=== PATIENT | female | born 1960 | race Caucasian/White ===

== ENCOUNTER 2018-01-18 12:07 | Emergency (ER) | payer OTHER ==
[2018-01-18 13:58] LABS: Urine Blood 2+ (NEG); Urine Glucose NEGATIVE (NEG); Urine Protein NEGATIVE (NEG); Urine Specific Gravity 1.015 (1.005-1.030)
[2018-01-18 14:00] LABS: Urine Bacteria >50 /HPF (<20); Urine Culture Reflex Order NOT NEEDED; Urine RBC <5 /HPF (NONE SEEN)
--- NOTE | 2018-01-18 14:08 | EDPHYS ---
Physician Documentation [facility] Name: Kaitlyn Sesay Age: 57 yrs Sex: Female : 1960 Arrival Date: 01/18/2018 Time: 12:09 Bed 23 Private MD: Tavares Dillon R ED Physician Riley Kaufman HPI: 01/18 14:12 This 57 yrs old Female presents to ER via Ambulatory with complaints of snw Abdominal Pain, Low Back Pain, High Blood Pressure. 14:12 The patient presents with abdominal pain in the lower abdomen. Onset: The snw symptoms/episode began/occurred suddenly, and became persistent. The symptoms. Associated signs and symptoms: none. The symptoms are described as crampy. Severity of pain: At its worst the pain was moderate. The patient has experienced similar episodes in the past, chronically, but today's symptoms are worse. appt today at 2:40. Historical: - Allergies: 12:33 Rocephin; sg 12:33 Cephalexin; sg 12:33 Sulfa (Sulfonamide Antibiotics); sg 12:33 Azithromycin; sg 12:33 Rofecoxib; sg - Home Meds: 12:33 levothyroxine 150 mcg tab 1 tab once daily [Active]; metoprolol tartrate 100 mg Oral sg tab 1 tab once daily [Active]; losartan 50 mg oral tab 1 tab once daily [Active]; gabapentin 600 mg oral tab 1 tab 3 times per day [Active]; sufentanil citrate intravenous intravenous for pain pump [Active]; bupivicaine [Active]; Aspirin Oral 1 cap [Active]; Benadryl 25 mg Oral cap 1 cap 3 times per day [Active]; [place] Oral 1 tab every 6 hours for Pain [Active]; - Immunization history:: Adult Immunizations. - Social history:: Smoking status: Patient/guardian denies using tobacco. - Ebola Screening: : Patient negative for fever greater than or equal to 101.5 degrees Fahrenheit, and additional compatible Ebola Virus Disease symptoms Patient denies exposure to infectious person Patient denies travel to an Ebola-affected area in the 21 days before illness onset No symptoms or risks identified at this time. ROS: 14:10 Constitutional: Negative for fever, chills, and weight loss, Eyes: Negative for injury, snw pain, redness, and discharge, ENT: Negative for injury, pain, and discharge, Neck: Negative for injury, pain, and swelling, Cardiovascular: Negative for chest pain, palpitations, and edema, Respiratory: Negative for shortness of breath, cough, wheezing, and pleuritic chest pain, : Negative for injury, bleeding, discharge, and swelling, MS/Extremity: Negative for injury and deformity, Skin: Negative for injury, rash, and discoloration, Neuro: Negative for headache, weakness, numbness, tingling, and seizure, Psych: Negative for depression, anxiety, suicide ideation, homicidal ideation, and hallucinations. 14:10 Abdomen/GI: Positive for abdominal pain, abdominal cramps. 14:10 Back: Positive for decreased range of motion, pain at rest, pain with movement, of the lumbar area, left low back and right low back. Exam: 14:10 Constitutional: This is a well developed, well nourished patient who is awake, alert, snw and in no acute distress. Head/Face: Normocephalic, atraumatic. Eyes: Pupils equal round and reactive to light, extra-ocular motions intact. Lids and lashes normal. Conjunctiva and sclera are non-icteric and not injected. Cornea within normal limits. Periorbital areas with no swelling, redness, or edema. ENT: Nares patent. No nasal discharge, no septal abnormalities noted. Tympanic membranes are normal and external auditory canals are clear. Oropharynx with no redness, swelling, or masses, exudates, or evidence of obstruction, uvula midline. Mucous membranes moist. Neck: Trachea midline, no thyromegaly or masses palpated, and no cervical lymphadenopathy. Supple, full range of motion without nuchal rigidity, or vertebral point tenderness. No Meningismus. Chest/axilla: Normal chest wall appearance and motion. Nontender with no deformity. No lesions are appreciated. Cardiovascular: Regular rate and rhythm with a normal S1 and S2. No gallops, murmurs, or rubs. Normal PMI, no JVD. No pulse deficits. Respiratory: Lungs have equal breath sounds bilaterally, clear to auscultation and percussion. No rales, rhonchi or wheezes noted. No increased work of breathing, no retractions or nasal flaring. Skin: Warm, dry with normal turgor. Normal color with no rashes, no lesions, and no evidence of cellulitis. MS/ Extremity: Pulses equal, no cyanosis. Neurovascular intact. Full, normal range of motion. Neuro: Awake and alert, GCS 15, oriented to person, place, time, and situation. Cranial nerves II-XII grossly intact. Motor strength 5/5 in all extremities. Sensory grossly intact. Cerebellar exam normal. Normal gait. Psych: Awake, alert, with orientation to person, place and time. Behavior, mood, and affect are within normal limits. 14:10 Back: No spinal tenderness. No costovertebral tenderness. Full range of motion. 14:10 Abdomen/GI: Inspection: abdomen appears normal, Bowel sounds: normal, Palpation: soft, in all quadrants, mild abdominal tenderness. Vital Signs: 12:28 BP 174 / 79; Pulse 66; Resp 17; Temp 98.8(TE); Pulse Ox 99% on R/A; Weight 72.57 kg sg (R); Pain 10/10; 14:23 BP 131 / 76; Pulse 62; Resp 18; Pulse Ox 98% on R/A; tl3 MDM: 12:58 Patient medically screened. snw 14:12 Data reviewed: vital signs, nurses notes. Data interpreted: Pulse oximetry: on room air snw is 99 %. Interpretation: normal. Counseling: I had a detailed discussion with the patient and/or guardian regarding: the historical points, exam findings, and any diagnostic results supporting the discharge/admit diagnosis, the presence of at least one elevated blood pressure reading (>120/80) during this emergency department visit, lab results, the need for outpatient follow up, to return to the emergency department if symptoms worsen or persist or if there are any questions or concerns that arise at home. Special discussion: Based on the patient's Hx, exam, and Dx evaluation, there is no indication for emergent surgery or inpatient Tx. It is understood by the patient/guardian that if the Sx's persist or worsen they need to return immediately for re-evaluation. I have referred the patient to see his PCP for further evaluation of high blood pressure. Based on the history and exam findings, there is no indication for further emergent testing or inpatient evaluation. I discussed with the patient/guardian the need to see the primary care provider for further evaluation of the symptoms. 01/18 12:59 Order name: Urine Microscopic Only; Complete Time: 14:05 snw 01/18 12:59 Order name: Urine Culture snw 01/18 13:49 Order name: Urine Dipstick--Ancillary (enter results); Complete Time: 13:59 mb4 01/18 12:59 Order name: Cath; Complete Time: 13:50 snw Administered Medications: 14:16 Drug: LevaQUIN 750 mg Route: PO; tl3 14:17 Follow up: Response: Medication administered at discharge. tl3 14:16 Drug: Macrobid 100 mg Route: PO; tl3 14:16 Follow up: Response: Medication administered at discharge. tl3 14:16 Drug: [place] 5 mg-325 mg 1 tabs Route: PO; tl3 14:16 Follow up: Response: Medication administered at discharge. tl3 Disposition: 01/18/18 14:07 Discharged to Home. Impression: Urinary tract infection, site not specified. - Condition is Stable. - Discharge Instructions: Urinary Tract Infection, Adult. - Prescriptions for Levaquin 500 mg Oral Tablet - take 1 tablet by ORAL route once daily for 10 days; 10 tablet. Macrobid 100 mg Oral Capsule - take 1 capsule by ORAL route every 12 hours for 10 days; 20 capsule. - Medication Reconciliation Form, Thank You Letter, Antibiotic Education, Prescription Opioid Use form. - Follow up: Tavares Dillon MD; When: Today; Reason: Recheck today's complaints, Continuance of care, Re-evaluation by your physician. Follow up: Emergency Department; When: As needed; Reason: Worsening of condition. Addendum: 01/20/2018 08:06 Co-signature as Attending Physician, Riley Kaufman MD I agree with the assessment and w a plan of care. Signatures: Dispatcher [employer] EDMS Quinn Hahn RN RN sg Beverley Leal, FARM HAND-C FARM HAND-Csnw Riley Kaufman MD MD wa Lowrey, Tammy RN RN tl3 Corrections: (The following items were deleted from the chart) 01/18 14:27 14:07 01/18/2018 14:07 Discharged to Home. Impression: Urinary tract infection, site tl3 not specified. Condition is Stable. Forms are Medication Reconciliation Form, Thank You Letter, Antibiotic Education, Prescription Opioid Use. Follow up: Tavares Dillon; When: Today; Reason: Recheck today's complaints, Continuance of care, Re-evaluation by your physician. Follow up: Emergency Department; When: As needed; Reason: Worsening of condition. snw
--- NOTE | 2018-01-18 14:08 | ER ---
Nurse's Notes [facility] Name: Kaitlyn Sesay Age: 57 yrs Sex: Female : 1960 Arrival Date: 01/18/2018 Time: 12:09 Bed 23 Private MD: Tavares Dillon R Diagnosis: Urinary tract infection, site not specified Presentation: 01/18 12:27 Presenting complaint: Patient states: and I have been fighting a urinary tract sg infection for a few months now, am not currently taking any abx, reports abd pain, low back pain and having high blood pressure due to the pain, reports dark urine, pain with urination that is intermittent. Transition of care: patient was not received from another setting of care. Onset of symptoms. Risk Assessment: Do you want to hurt yourself or someone else? Patient reports no desire to harm self or others. Initial Sepsis Screen: Does the patient meet any 2 criteria? No. Patient's initial sepsis screen is negative. Does the patient have a suspected source of infection? Yes: Dysuria/Frequency/Urgency/UTI. Care prior to arrival: None. 12:27 Method Of Arrival: Ambulatory sg 12:27 Acuity: VIKRAM 3 sg Historical: - Allergies: 12:33 Rocephin; sg 12:33 Cephalexin; sg 12:33 Sulfa (Sulfonamide Antibiotics); sg 12:33 Azithromycin; sg 12:33 Rofecoxib; sg - Home Meds: 12:33 levothyroxine 150 mcg tab 1 tab once daily [Active]; metoprolol tartrate 100 mg Oral sg tab 1 tab once daily [Active]; losartan 50 mg oral tab 1 tab once daily [Active]; gabapentin 600 mg oral tab 1 tab 3 times per day [Active]; sufentanil citrate intravenous intravenous for pain pump [Active]; bupivicaine [Active]; Aspirin Oral 1 cap [Active]; Benadryl 25 mg Oral cap 1 cap 3 times per day [Active]; [place] Oral 1 tab every 6 hours for Pain [Active]; - Immunization history:: Adult Immunizations. - Social history:: Smoking status: Patient/guardian denies using tobacco. - Ebola Screening: : Patient negative for fever greater than or equal to 101.5 degrees Fahrenheit, and additional compatible Ebola Virus Disease symptoms Patient denies exposure to infectious person Patient denies travel to an Ebola-affected area in the 21 days before illness onset No symptoms or risks identified at this time. Screenin:00 Abuse screen: Denies threats or abuse. Nutritional screening: No deficits noted. tl3 Tuberculosis screening: No symptoms or risk factors identified. Fall Risk None identified. Assessment: 13:00 General: Appears uncomfortable, well groomed, well developed, well nourished, Behavior tl3 is calm, cooperative, appropriate for age. Pain: Complains of pain in lower abdomen, hips and lower back Pain currently is 7 out of 10 on a pain scale. Neuro: Level of Consciousness is awake, alert, obeys commands, Oriented to person, place, time, situation, Appropriate for age. Cardiovascular: Patient's skin is warm and dry. Respiratory: Airway is patent Respiratory effort is even, unlabored, Respiratory pattern is regular, symmetrical. GI: No signs and/or symptoms were reported involving the gastrointestinal system. GI: Bowel sounds present X 4 quads. Abdomen is tender to palpation in right lower quadrant and left lower quadrant. EENT: No signs and/or symptoms were reported regarding the EENT system. Derm: No signs and/or symptoms reported regarding the dermatologic system. Musculoskeletal: No signs and/or symptoms reported regarding the musculoskeletal system. 13:00 : Reports burning with urination, urgency. tl3 14:23 Reassessment: No changes from previously documented assessment. Patient and/or family tl3 updated on plan of care and expected duration. Pain level reassessed. Patient is alert, oriented x 3, equal unlabored respirations, skin warm/dry/pink. Vital Signs: 12:28 BP 174 / 79; Pulse 66; Resp 17; Temp 98.8(TE); Pulse Ox 99% on R/A; Weight 72.57 kg sg (R); Pain 10/10; 14:23 BP 131 / 76; Pulse 62; Resp 18; Pulse Ox 98% on R/A; tl3 ED Course: 12:09 Patient arrived in ED. rg4 12:09 Tavares Dillon MD is Private Physician. rg4 12:24 Arm band placed on. sg 12:28 Triage completed. sg 12:58 Bever[facility]. snw 12:58 Riley Kaufman MD is Attending Physician. snw 13:00 Patricia Guthrie, RN is Primary Nurse. tl3 13:00 Patient has correct armband on for positive identification. Pulse ox on. NIBP on. Warm tl3 blanket given. Pillow given. 13:00 No provider procedures requiring assistance completed. tl3 13:45 Straight cath inserted, using sterile technique, Patient tolerated well. vd2 13:45 Urine collected: straight cath specimen, scotty colored. vd2 14:06 Tavares Dillon MD is Referral Physician. snw 14:23 Patient did not have IV access during this emergency room visit. tl3 Administered Medications: 14:16 Drug: LevaQUIN 750 mg Route: PO; tl3 14:17 Follow up: Response: Medication administered at discharge. tl3 14:16 Drug: Macrobid 100 mg Route: PO; tl3 14:16 Follow up: Response: Medication administered at discharge. tl3 14:16 Drug: [place] 5 mg-325 mg 1 tabs Route: PO; tl3 14:16 Follow up: Response: Medication administered at discharge. tl3 Outcome: 14:07 Discharge ordered by . snw 14:23 Discharged to home ambulatory. tl3 14:23 Condition: stable 14:23 Discharge instructions given to patient, family, Instructed on discharge instructions, follow up and referral plans. medication usage, Demonstrated understanding of instructions, follow-up care, medications, Prescriptions given X 2. 14:27 Patient left the ED. tl3 Addendum: 01/21/2018 08:23 Addendum: Culture Results: Positive urine culture. No further action required. Bacteria h b sensitive to prescribed antibiotic. Signatures: Quinn Hahn RN RN sg Therrien, Shelly, HOME CARE PHYSICAL THERAPIST-C HOME CARE PHYSICAL THERAPIST-Csnw [place], [place] vd2 Debbie Harrison RN RN hb Garcia, Rubi rg4 Patricia Guthrie, SRI RN tl3 Corrections: (The following items were deleted from the chart) 01/18 13:20 13:00 : No signs and/or symptoms were reported regarding the genitourinary system. tl3tl3 13:20 13:00 : Urine is clear, Reports burning with urination, urine has foul odor tl3 tl3
[2018-01-18] MEDS ORDERED: levoFLOXacin 750 MG TAB ONE (14:17)
[2018-01-18] MEDS ORDERED: NITROFURAN MACRO 100 MG CAP PO ONE (14:18)
[2018-01-18] MEDS ORDERED: HYDROCODONE/APAP 5/325 MG TAB ONE (14:18)
[2018-01-18 14:31] VITALS: TEMP 98.8
[2018-01-18 14:32] VITALS: BP 131/76; O2SAT 98
== END 2018-01-18 14:27 | disposition home or self-care (01) ==
LOC: ER 12:07
DX: N39.0 Urinary tract infection, site not specified (principal); Z79.82 Long term (current) use of aspirin; Z88.1 Allergy status to other antibiotic agents; Z88.2 Allergy status to sulfonamides; Z88.3 Allergy status to other anti-infective agents
CPT/HCPCS: 51702; 81003; 81015; 87077; 87086; 87088; 87186; 99284

== ENCOUNTER 2018-12-01 18:40 | Emergency (ER) | payer OTHER ==
[2018-12-01 19:40] LABS: Absolute Lymphocytes (CBC) 2.2 K/uL (0.7-4.9); Basophils % 0.8 % (0-1.3); Eosinophils % 1.1 % (0-4.4); Hematocrit 38.9 % (36.0-45.0); Lymphocytes % 23.1 % (15.3-44.8); MPV 9.9 fL (7.6-11.3); Monocytes % 3.9 % (3.3-12.3); RBC Red Blood Cell Count 3.65 M/uL (3.86-4.86)
[2018-12-01 19:42] LABS: Protime INR 1.15
--- NOTE | 2018-12-01 19:48 | RAD REPORT ---
EXAM DESCRIPTION: CT - Head Brain Wo Cont - 12/01/2018 7:38 pm CLINICAL HISTORY: DIZZINESS Headache, drowsiness COMPARISON: HEAD BRAIN W O CONTRAST dated 03/28/2012 TECHNIQUE: All CT scans are performed using dose optimization technique as appropriate and may inclu de automated exposure control or mA/KV adjustment according to patient size. FINDINGS: No intracranial hemorrhage, hydrocephalus or extra-axial fluid collection.No areas of brai n edema or evidence of midline shift. The paranasal sinuses and mastoids are clear. The calvarium is intact. IMPRESSION: No acute intracranial abnormality.
--- NOTE | 2018-12-01 19:50 | RAD REPORT ---
EXAM DESCRIPTION: RAD - Chest Single View - 12/01/2018 7:38 pm CLINICAL HISTORY: dizziness, vomiting blood Chest pain. COMPARISON: CHEST PA AND LAT 2 VIEW dated 06/18/2012; CHEST SINGLE VIEW dated 02/16/2012 FINDINGS: Portable technique limits examination quality. The lungs are grossly clear. The heart is upper limit of normal in size. No displaced fractures. IMPRESSION: No acute intrathoracic process suspected.
[2018-12-01] MEDS ORDERED: ONDANSETRON 4 MG/2 ML VIAL ONE (19:51)
[2018-12-01] MEDS ORDERED: LIDOCAINE VISCOUS 2% SOLN 15 ML UDC ONE (19:52)
[2018-12-01] MEDS ORDERED: NA CHLORIDE 0.9% 1,000 ML ONE (19:52)
[2018-12-01 19:58] LABS: Bilirubin Direct 0.3 mg/dL (0-0.2); Bilirubin Total 1.3 mg/dL (0.2-1.0); Magnesium 2.3 mg/dL (1.8-2.4); Potassium 4.3 mmol/L (3.5-5.1); Protein, Total 6.8 g/dL (6.4-8.2); Troponin (Emerg Dept Use Only) 0.02 ng/mL (0.0-0.045)
[2018-12-01 20:08] LABS: Blood Morphology Comment NOTED (NOT SEEN); Macrocytosis 1+; Platelet Estimate ADEQ; Urine White Blood Cell Casts OK
[2018-12-01] MEDS ORDERED: MECLIZINE HCL 12.5 MG TAB ONE (20:42)
[2018-12-01 21:08] LABS: Urine Appearance CLEAR; Urine Blood NEGATIVE (NEG); Urine Color DK YELLOW; Urine Glucose NEGATIVE (NEG); Urine Microscopic Reflex ORDER UMIC; Urine Protein TRACE (NEG); Urine Specific Gravity 1.025 (1.005-1.030)
[2018-12-01 21:13] LABS: Barbiturates NEGATIVE (NEGATIVE); Benzodiazepines NEGATIVE (NEGATIVE); Cocaine NEGATIVE (NEGATIVE); METHAMPHETAM NEGATIVE (NEGATIVE); Methadone NEGATIVE (NEGATIVE); Opiates POSITIVE (NEGATIVE); Phencyclidine NEGATIVE (NEGATIVE); THC Cannibis NEGATIVE (NEGATIVE); Urine Bilirubin NEGATIVE (NEG)
[2018-12-01 21:14] LABS: Urine Blood TRACE (NEG); Urine Glucose NEGATIVE (NEG); Urine Protein 1+ (NEG); Urine Specific Gravity 1.025 (1.005-1.030)
[2018-12-01 21:17] LABS: Urine Bacteria <20 /HPF (<20); Urine Culture Reflex Order REFLEXED; Urine RBC <5 /HPF (NONE SEEN); Urine Yeast FEW (NONE SEEN)
--- NOTE | 2018-12-01 21:41 | ER ---
Nurse's Notes [facility] Name: Kaitlyn Sesay Age: 58 yrs Sex: Female : 1960 Arrival Date: 12/01/2018 Time: 18:42 Bed 7 Private MD: Tavares Dillon R Diagnosis: Dizziness. Acute labyrinthitis Presentation: 12/01 18:46 Presenting complaint: Patient states: I started feeling bad this morning with a ROY, la1 dizziness, nausea. I vomited red that I think was blood at 1300. Transition of care: patient was not received from another setting of care. Onset of symptoms was December 01, 2018. Risk Assessment: Do you want to hurt yourself or someone else? Patient reports no desire to harm self or others. Initial Sepsis Screen: Does the patient meet any 2 criteria? No. Patient's initial sepsis screen is negative. Does the patient have a suspected source of infection? No. Patient's initial sepsis screen is negative. Care prior to arrival: None. 18:46 Method Of Arrival: Wheelchair la1 18:46 Acuity: VIKRAM 2 la1 Historical: - Allergies: 18:48 Azithromycin; la1 18:48 Cephalexin; la1 18:48 Rocephin; la1 18:48 Rofecoxib; la1 18:48 Sulfa (Sulfonamide Antibiotics); la1 18:48 PENICILLINS; la1 - PMHx: 18:48 Thyroid problem; la1 - PSHx: 18:48 Appendectomy; Cholecystectomy; ; Hysterectomy; la1 - Immunization history:: Adult Immunizations up to date. - Social history:: Smoking status: Patient/guardian denies using tobacco. - Ebola Screening: : No symptoms or risks identified at this time. Screenin:00 Abuse screen: Denies threats or abuse. Denies injuries from another. Nutritional ch screening: No deficits noted. Tuberculosis screening: No symptoms or risk factors identified. Fall Risk None identified. Assessment: 20:08 General: Appears in no apparent distress. comfortable, Behavior is calm, cooperative, ch appropriate for age. Pain: Complains of pain in abdomen Pain currently is 5 out of 10 on a pain scale. Pain began gradually. Neuro: No deficits noted. Cardiovascular: Heart tones S1 S2 present. Respiratory: Airway is patent Respiratory effort is even, unlabored, Breath sounds are clear bilaterally. GI: Abdomen is round non-distended, Bowel sounds present X 4 quads. Abd is soft and non tender X 4 quads. Reports nausea, vomiting, vomiting blood and feeling weak when she walks. : No signs and/or symptoms were reported regarding the genitourinary system. Derm: Skin is pale. Musculoskeletal: No signs and/or symptoms reported regarding the musculoskeletal system. Capillary refill < 3 seconds, in bilateral fingers. toes. 20:42 Reassessment: Patient appears in no apparent distress at this time. Patient and/or ch family updated on plan of care and expected duration. Pain level reassessed. Patient is alert, oriented x 3, equal unlabored respirations, skin warm/dry/pink. pt oob to restroom. pt attempts to walk, states she is too weak and afraid she will fall. urine obtained. pt returned to room via wheelchair. 21:37 Reassessment: Patient appears in no apparent distress at this time. Patient and/or ch family updated on plan of care and expected duration. Pain level reassessed. Patient is alert, oriented x 3, equal unlabored respirations, skin warm/dry/pink. pt oob, ambulates down the hallway,s tates she feels better. no s/s of distress. pt verb understanding of discharge. Vital Signs: 18:48 BP 74 / 53; Pulse 75; Resp 16; Temp 97.6; Pulse Ox 98% on R/A; Weight 79.38 kg; Height la1 5 ft. 6 in. (167.64 cm); 19:10 BP 111 / 80; Pulse 76; ch 19:45 BP 125 / 93; Pulse 70; ch 20:08 BP 135 / 74; Pulse 51; Resp 16; Temp 98.4; Pulse Ox 99% on R/A; Pain 5/10; ch 20:42 Pulse 63; Resp 14; Pulse Ox 100% on R/A; Pain 6/10; ch 18:48 Body Mass Index 28.25 (79.38 kg, 167.64 cm) la1 ED Course: 18:42 Patient arrived in ED. mr 18:43 Taavres Dillon MD is Private Physician. mr 18:47 Triage completed. la1 18:48 Arm band placed on left wrist. la1 19:03 Sal Gay MD is Attending Physician. pkl 19:07 Inserted saline lock: 22 gauge in right antecubital area, using aseptic technique. la1 19:10 Patient has correct armband on for positive identification. Placed in gown. Bed in low ch position. Call light in reach. Side rails up X2. Adult w/ patient. cardiac monitor on. Pulse ox on. NIBP on. 19:10 Warm blanket given. Pillow given. ch 19:15 Inserted saline lock: 20 gauge in left forearm, using aseptic technique. Blood ch collected. 19:35 Solange Alcazar, RN is Primary Nurse. ch 19:38 CT completed. Patient tolerated procedure well. Patient moved back from CT. mw3 19:39 XRAY Chest (1 view) In Process Unspecified. EDMS 19:39 CT Head Brain wo Cont In Process Unspecified. EDMS 19:45 NGT: inserted 14 Fr. via right nare. verified placement of air over stomach, verified ch return of gastric contents, to intermittent suction. Returned gastric contents. returns small amount of nicole, no blood seen. no black emesis, no clots viewed. physician at bedside, auscultation checked by physician, no blood viewed. flushed with 50 ml tap water Removed intact. Patient tolerated well. pt educated on risks, benefits, and purpose of procedure. pt verb understanding, discussing witnessed by Sofya. 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 ch 20:15 Repeat lab(s) drawn. by ED staff, sent to lab. ch 20:16 No apparent distress. Resting quietly. ch 21:40 Tavares Dillon MD is Referral Physician. pkl 21:50 IV discontinued, intact, bleeding controlled, No redness/swelling at site. Pressure ch dressing applied. Administered Medications: 19:37 Drug: NS 0.9% 500 ml Route: IV; Rate: bolus; Site: left forearm; ch 20:47 Follow up: IV Status: Completed infusion; IV Intake: 500ml ch 19:37 Drug: NS 0.9% 1000 ml Route: IV; Rate: 100 ml/hr; Site: left forearm; ch 19:37 Drug: Zofran 4 mg Route: IVP; Site: left forearm; ch 20:47 Follow up: Response: No adverse reaction ch 20:42 Drug: Antivert 50 mg Route: PO; ch 20:46 Follow up: Response: No adverse reaction Intake: 20:47 IV: 500ml; Total: 500ml. Outcome: 21:41 Discharge ordered by . pkl 21:50 Discharged to home ambulatory, with family. 21:50 Condition: stable 21:50 Discharge instructions given to patient, family, Instructed on discharge instructions, follow up and referral plans. medication usage, Demonstrated understanding of instructions, follow-up care, medications, Prescriptions given X 2. 22:00 Patient left the ED. Signatures: Dispatcher [employer] EDSolange Hernandes, RN RN Sal Gay MD MD pkl Rivera, Estelita mr Enrico, SRI Persaud RN laClari Bello 3
--- NOTE | 2018-12-01 21:41 | EDPHYS ---
Physician Documentation [facility] Name: Kaitlyn Sesay Age: 58 yrs Sex: Female : 1960 Arrival Date: 12/01/2018 Time: 18:42 Bed 7 Private MD: Tavares Dillon R ED Physician Sal Gay HPI: 12/01 19:46 This 58 yrs old Female presents to ER via Wheelchair with complaints of pkl Vomiting, Blood Pressure Problem. 19:46 The patient presents with dizziness, lightheadedness, sense of spinning. Onset: The pkl symptoms/episode began/occurred this morning. Associated signs and symptoms: Pertinent positives: nausea, vomiting, Patient said she vomited fair amount amount of blood at about 1300.. Historical: - Allergies: 18:48 Azithromycin; la1 18:48 Cephalexin; la1 18:48 Rocephin; la1 18:48 Rofecoxib; la1 18:48 Sulfa (Sulfonamide Antibiotics); la1 18:48 PENICILLINS; la1 - PMHx: 18:48 Thyroid problem; la1 - PSHx: 18:48 Appendectomy; Cholecystectomy; ; Hysterectomy; la1 - Immunization history:: Adult Immunizations up to date. - Social history:: Smoking status: Patient/guardian denies using tobacco. - Ebola Screening: : No symptoms or risks identified at this time. ROS: 19:46 Eyes: Negative for injury, pain, redness, and discharge, ENT: Negative for injury, pkl pain, and discharge, Neck: Negative for injury, pain, and swelling, Cardiovascular: Negative for chest pain, palpitations, and edema, Respiratory: Negative for shortness of breath, cough, wheezing, and pleuritic chest pain. 19:46 Abdomen/GI: Positive for nausea and vomiting. 19:46 Back: Negative for acute changes. 19:46 : Negative for urinary symptoms. 19:46 MS/extremity: Negative for acute changes. 19:46 Skin: Negative for diaphoresis, rash. 19:46 Neuro: Positive for dizziness, Negative for gait disturbance, speech changes. Exam: 19:46 Head/Face: Normocephalic, atraumatic. Eyes: Pupils equal round and reactive to light, pkl extra-ocular motions intact. Lids and lashes normal. Conjunctiva and sclera are non-icteric and not injected. Cornea within normal limits. Periorbital areas with no swelling, redness, or edema. ENT: Nares patent. No nasal discharge, no septal abnormalities noted. Tympanic membranes are normal and external auditory canals are clear. Oropharynx with no redness, swelling, or masses, exudates, or evidence of obstruction, uvula midline. Mucous membranes moist. Neck: Trachea midline, no thyromegaly or masses palpated, and no cervical lymphadenopathy. Supple, full range of motion without nuchal rigidity, or vertebral point tenderness. No Meningismus. Chest/axilla: Normal chest wall appearance and motion. Nontender with no deformity. No lesions are appreciated. Cardiovascular: Regular rate and rhythm with a normal S1 and S2. No gallops, murmurs, or rubs. Normal PMI, no JVD. No pulse deficits. Respiratory: Lungs have equal breath sounds bilaterally, clear to auscultation and percussion. No rales, rhonchi or wheezes noted. No increased work of breathing, no retractions or nasal flaring. Abdomen/GI: Soft, non-tender, with normal bowel sounds. No distension or tympany. No guarding or rebound. No evidence of tenderness throughout. Back: No spinal tenderness. No costovertebral tenderness. Full range of motion. Skin: Warm, dry with normal turgor. Normal color with no rashes, no lesions, and no evidence of cellulitis. MS/ Extremity: Pulses equal, no cyanosis. Neurovascular intact. Full, normal range of motion. 19:46 Neuro: Orientation: is normal, Mentation: is normal, Cranial nerves: grossly normal, Cerebellar function: normal finger to nose testing, heel to aburto testing is normal, Motor: is normal, Gait: is steady. 20:05 Abdomen/GI: Rectal exam: Stool: brown, guaiac negative, the exam is chaperoned by the [facility] nurse. Vital Signs: 18:48 BP 74 / 53; Pulse 75; Resp 16; Temp 97.6; Pulse Ox 98% on R/A; Weight 79.38 kg; Height la1 5 ft. 6 in. (167.64 cm); 19:10 BP 111 / 80; Pulse 76; ch 19:45 BP 125 / 93; Pulse 70; ch 20:08 BP 135 / 74; Pulse 51; Resp 16; Temp 98.4; Pulse Ox 99% on R/A; Pain 5/10; ch 20:42 Pulse 63; Resp 14; Pulse Ox 100% on R/A; Pain 6/10; ch 18:48 Body Mass Index 28.25 (79.38 kg, 167.64 cm) la1 MDM: 19:04 Patient medically screened. pkl 20:06 Data reviewed: vital signs, nurses notes. ED course: NG tube ( Neg. for blood ). pkl 21:33 ED course: Discussed lab. and CT Scans results with patient and . Patient said pkl she is feeling better. Dizziness, nausea and vomiting have resolved. Ambulate without difficulty. Advised to return if symptoms recur. Patient and understood instructions. 12/01 19:19 Order name: Basic Metabolic Panel pkl 12/01 19:19 Order name: CBC with Diff pkl 12/01 19:19 Order name: LFT's pkl 12/01 19:19 Order name: Magnesium; Complete Time: 20:10 pkl 12/01 19:19 Order name: NT PRO-BNP; Complete Time: 20:10 pkl 12/01 19:19 Order name: PT-INR; Complete Time: 19:55 pkl 12/01 19:19 Order name: Troponin (emerg Dept Use Only); Complete Time: 20:10 pkl 12/01 19:19 Order name: Type And Screen; Complete Time: 20:14 pkl 12/01 19:19 Order name: Lipase; Complete Time: 20:10 pkl 12/01 19:19 Order name: UA; Complete Time: 21:28 pkl 12/01 19:19 Order name: UDS; Complete Time: 21:28 pkl 12/01 19:24 Order name: Basic Metabolic Panel; Complete Time: 20:10 EDMS 12/01 19:24 Order name: CBC with Automated Diff; Complete Time: 20:10 EDMS 12/01 19:24 Order name: Liver (Hepatic) Function; Complete Time: 20:10 EDMS 12/01 19:19 Order name: XRAY Chest (1 view); Complete Time: 19:55 pkl 12/01 19:19 Order name: EKG; Complete Time: 19:24 pkl 12/01 19:19 Order name: Cardiac monitoring; Complete Time: 19:37 pkl 12/01 19:19 Order name: IV Saline Lock; Complete Time: 19:37 pkl 12/01 19:19 Order name: Labs collected and sent; Complete Time: 19:37 pkl 12/01 19:19 Order name: CT Head Brain wo Cont; Complete Time: 19:55 pkl 12/01 19:46 Order name: CBC Smear Scan; Complete Time: 20:10 EDMS 12/01 20:37 Order name: ABO/RH no charge; Complete Time: 20:43 EDMS 12/01 20:54 Order name: Urine Dipstick--Ancillary (enter results) oh 12/01 21:09 Order name: Urine Microscopic Only; Complete Time: 21:28 EDMS 12/01 21:19 Order name: Urine Culture EDAZ 12/01 19:19 Order name: O2 Per Protocol; Complete Time: 19:37 pkl 12/01 19:19 Order name: O2 Sat Monitoring; Complete Time: 19:38 pkl 12/01 19:19 Order name: NG Tube; Complete Time: 20:46 pkl Administered Medications: 19:37 Drug: NS 0.9% 500 ml Route: IV; Rate: bolus; Site: left forearm; ch 20:47 Follow up: IV Status: Completed infusion; IV Intake: 500ml ch 19:37 Drug: NS 0.9% 1000 ml Route: IV; Rate: 100 ml/hr; Site: left forearm; ch 19:37 Drug: Zofran 4 mg Route: IVP; Site: left forearm; ch 20:47 Follow up: Response: No adverse reaction ch 20:42 Drug: Antivert 50 mg Route: PO; ch 20:46 Follow up: Response: No adverse reaction Disposition: 12/01/18 21:41 Discharged to Home. Impression: Dizziness. Acute labyrinthitis. - Condition is Stable. - Prescriptions for Antivert 25 mg Oral Tablet - take 1 tablet by ORAL route every 8 hours As needed; 20 tablet. Zofran 4 mg Oral Tablet - take 1 tablet by ORAL route every 12 hours As needed; 6 tablet. - Medication Reconciliation Form, Thank You Letter, Antibiotic Education, Prescription Opioid Use form. - Follow up: Tavares Dillon MD; When: 2 - 3 days; Reason: Re-evaluation by your physician. - Problem is new. - Symptoms have improved. Signatures: Dispatcher [employer] Solange Awan RN RN ch Sal Gay MD MD pkl Hung Weston RN RN la1 Corrections: (The following items were deleted from the chart) 22:00 21:41 12/01/2018 21:41 Discharged to Home. Impression: Dizziness. Acute labyrinthitis. ch Condition is Stable. Forms are Medication Reconciliation Form, Thank You Letter, Antibiotic Education, Prescription Opioid Use. Follow up: Tavares Dillon; When: 2 - 3 days; Reason: Re-evaluation by your physician. Problem is new. Symptoms have improved. pkl
[2018-12-01 22:28] VITALS: BP 135/74; TEMP 98.4
[2018-12-01 22:30] VITALS: O2SAT 100
== END 2018-12-01 22:00 | disposition home or self-care (01) ==
LOC: ER 18:40
DX: H83.09 Labyrinthitis, unspecified ear (principal); Z88.0 Allergy status to penicillin; Z88.1 Allergy status to other antibiotic agents; Z88.2 Allergy status to sulfonamides
CPT/HCPCS: 96361; 93005; 87088; 85025; 87086; 80048; 36415; 86900; 83735; 86850; 85610; 86901; 80076; 80307 ×8; 84484; 83690; 83880; 70450; 71045; 96374; 99285; J7030; J2405; 81003; 81015

== ENCOUNTER 2018-12-03 09:57 | Inpatient (IN) | payer OTHER ==
[2018-12-03] MEDS ORDERED: NA CHLORIDE 0.9% 2,000 ML ONE (10:28)
[2018-12-03] MEDS ORDERED: PANTOPRAZOLE 40 MG INJ ONE (10:36)
[2018-12-03] MEDS ORDERED: ONDANSETRON 4 MG/2 ML VIAL ONE ×3 (10:36→17:10)
[2018-12-03 10:37] LABS: Absolute Lymphocytes (CBC) 2.5 K/uL (0.7-4.9); Basophils % 0.7 % (0-1.3); Eosinophils % 0.5 % (0-4.4); Hematocrit 18.6 % (36.0-45.0); Lymphocytes % 28.9 % (15.3-44.8); MPV 9.7 fL (7.6-11.3); Monocytes % 9.6 % (3.3-12.3); RBC Red Blood Cell Count 1.72 M/uL (3.86-4.86)
[2018-12-03 10:44] LABS: Albumin 1.8 g/dL (3.4-5.0); Bilirubin Direct 0.2 mg/dL (0-0.2); Bilirubin Total 0.8 mg/dL (0.2-1.0); Potassium 5.2 mmol/L (3.5-5.1); Protein, Total 3.9 g/dL (6.4-8.2)
--- NOTE | 2018-12-03 11:19 | RAD REPORT ---
EXAM DESCRIPTION: CT - Abdomen Pelvis W Contrast - 12/03/2018 11:01 am CLINICAL HISTORY: Hematochezia COMPARISON: April 2018 TECHNIQUE: Computed axial tomography of the abdomen pelvis was obtained. 100 cc Isovue-300 was admin istered intravenously. Oral contrast was not requested which limits evaluation of bowel. All CT scans are performed using dose optimization technique as appropriate and may include automated exposure control or mA/KV adjustment according to patient size. FINDINGS: Some of the images are degraded by patient motion artifact Liver has a mildly nodular contour which may indicate cirrhosis. Caudate lobe is prominent. Gallbladd er has been removed Spleen, pancreas, adrenal and kidneys appear unremarkable. The wall of the ascending colon is markedly thickened. Pneumatosis intestinalis is not seen. Small to moderate amount of ascites within the pelvis. Small amount of ascites within the abdomen. Neurostimulator device in place IMPRESSION: Marked right colitis
[2018-12-03] MEDS ORDERED: OCTREOTIDE 500 MCG in NA CHLORIDE 0.9% 500 ML IV ONE (11:30)
[2018-12-03] MEDS ORDERED: OCTREOTIDE ACETATE 100 MCG/ML IV ONE (11:30)
[2018-12-03] MEDS ORDERED: PANTOPRAZOLE INJ 80 MG in NA CHLORIDE 0.9% 250 ML IV ONE (11:30)
[2018-12-03] MEDS ORDERED: NA CHLORIDE 0.9% 250 ML ONE (11:32)
[2018-12-03] MEDS ORDERED: OCTREOTIDE ACETATE 100 MCG/ML ONE (11:34)
[2018-12-03] MEDS ORDERED: NOREPINEPHRINE 4mg/D5W 250mL 4 MG/250 ML BAG IV ONE (12:00)
[2018-12-03] MEDS ORDERED: NA CHLORIDE 0.9% 1,000 ML ONE (12:00)
--- NOTE | 2018-12-03 12:19 | EDPHYS ---
Physician Documentation [facility] Name: Kaitlyn Sesay Age: 58 yrs Sex: Female : 1960 Arrival Date: 12/03/2018 Time: 09:59 Bed 4 Private MD: ED Physician Sarthak Mustafa Historical: - Allergies: 12/03 10:04 Azithromycin; aj 10:04 Cephalexin; aj 10:04 PENICILLINS; aj 10:04 Rocephin; aj 10:04 Rofecoxib; aj 10:04 Sulfa (Sulfonamide Antibiotics); aj - Home Meds: 10:04 Aspirin Oral 1 cap [Active]; Benadryl 25 mg Oral cap 1 cap 3 times per day [Active]; aj bupivicaine [Active]; gabapentin 600 mg Oral tab 1 tab 3 times per day [Active]; losartan 50 mg Oral tab 1 tab once daily [Active]; levothyroxine 150 mcg tab 1 tab once daily [Active]; metoprolol tartrate 100 mg Oral tab 1 tab once daily [Active]; [place] Oral 1 tab every 6 hours for Pain [Active]; sufentanil citrate intravenous for pain pump [Active]; - PMHx: 10:04 Thyroid problem; Chronic pain; aj - PSHx: 10:04 Appendectomy; Cholecystectomy; ; Hysterectomy; aj - Immunization history:: Adult Immunizations up to date. - Social history:: Smoking status: Patient/guardian denies using tobacco. - Ebola Screening: : Patient negative for fever greater than or equal to 101.5 degrees Fahrenheit, and additional compatible Ebola Virus Disease symptoms Patient denies exposure to infectious person Patient denies travel to an Ebola-affected area in the 21 days before illness onset No symptoms or risks identified at this time. Vital Signs: 10:04 BP 81 / 36; Pulse 72; Resp 13; Temp 97.9; Pulse Ox 96% on 2 lpm NC; Weight 79.38 kg; aj Height 5 ft. 4 in. (162.56 cm); 10:39 BP 83 / 51; Pulse 75; Resp 19; Pulse Ox 96% on 2 lpm NC; aj 11:00 BP 71 / 68; Pulse 75; Resp 16; Pulse Ox 98% on R/A; aj 11:30 BP 83 / 26; sg 12:02 BP 86 / 60; Pulse 70; Resp 17; Temp 97.4; Pulse Ox 100% on 3 lpm NC; sg 12:45 BP 107 / 67; Pulse 69; Resp 18 S; Temp 97.4; Pulse Ox 100% on 3 lpm NC; sg 12:55 BP 94 / 64; Pulse 68; Resp 18 S; Temp 97.4; Pulse Ox 100% on 3 lpm NC; sg 13:08 BP 85 / 62; Pulse 66; Resp 18; Temp 97.8; Pulse Ox 99% on 3 lpm NC; sg 13:20 BP 84 / 65; Pulse 68 MON; Resp 18 S; Temp 97.8; Pulse Ox 100% on 3 lpm NC; sg 13:30 BP 86 / 60; Pulse 68 MON; Resp 18 S; Temp 97.8; Pulse Ox 100% on 3 lpm NC; sg 13:41 BP 83 / 63; Pulse 66; Resp 18; Pulse Ox 100% on R/A; sg 13:46 BP 73 / 57; Pulse 73; Resp 20; Temp 97.8; Pulse Ox 100% on R/A; sg 14:00 BP 98 / 71; Pulse 73; Resp 18; Pulse Ox 100% on R/A; sg 10:04 Body Mass Index 30.04 (79.38 kg, 162.56 cm) aj 13:41 pt reports the o2 NC is causing pain in the nose, pt tolerating room air at 100 percent sg MDM: 10:29 Patient medically screened. [facility] 12/03 10:08 Order name: CBC with Diff; Complete Time: 14: [facility] 12/03 10:08 Order name: Hepatic Function; Complete Time: 11:14 ps1 12/03 10:08 Order name: Lipase; Complete Time: 11:14 ps1 12/03 10:08 Order name: CMP; Complete Time: 11:14 ps1 12/03 10:08 Order name: Type And Screen [facility] 12/03 11:26 Order name: Packed RBC Leukored EDMO 12/03 10:50 Order name: Abdomen ; Complete Time: 12:13 EDMO 12/03 13:01 Order name: CBC Smear Scan; Complete Time: 14:09 EDMS 12/03 13:41 Order name: Urine Dipstick--Ancillary (enter results) em1 12/03 10:08 Order name: IV Saline Lock; Complete Time: 10:24 ps1 12/03 10:08 Order name: Labs collected and sent; Complete Time: 10:24 ps1 12/03 10:43 Order name: Transfuse; Complete Time: 13:06 ps1 12/03 11:12 Order name: EKG Electrocardiogram EDMS 12/03 12:37 Order name: NPO EDMS 12/03 13:29 Order name: Ramirez; Complete Time: 13:29 sg Administered Medications: 10:25 Drug: ProTONIX 80 mg Route: IVP; Site: left antecubital; aj 11:30 Follow up: Response: No adverse reaction sg 10:25 Drug: Zofran 4 mg Route: IVP; Site: left antecubital; aj 11:00 Follow up: Response: No adverse reaction; Nausea is decreased sg 11:10 Drug: Octreotide 50 mcg Route: IV; Rate: bolus; Site: left forearm; sg 11:30 Follow up: Response: No adverse reaction; IV Status: Completed infusion; pt reports sg nausea, has vomited x1 with coffee ground emesis noted 11:14 Drug: Octreotide Infusion (50 mcg/hr) - (Octreotide 500 mcg, NS 0.9% 500 ml) Route: IV; sg Rate: 50 ml/hr; Site: left forearm; 11:15 Drug: NS 0.9% 1000 ml Route: IV; Rate: 1 bolus; Site: right jugular; sg 11:15 Drug: NS 0.9% 1000 ml Route: IV; Rate: 1 bolus; Site: right jugular; sg 11:56 Drug: Zofran 4 mg Route: IVP; Site: right jugular; sv 12:30 Follow up: Response: No adverse reaction; Nausea unchanged; Vomiting decreased sg 13:15 Drug: ProTONIX 8 mg/hr Route: IV; Rate: 25 ml/hr; Site: right jugular; sg 13:48 Drug: Reglan 10 mg Route: IVP; Site: left forearm; sg 14:15 Not Given (Other Intervention Used): Levophed (4 mg/250 mL D5W 4 mcg/min IV at sg calculated rate Per protocol; (final concentration is 16 microgram/mL) Disposition: 12/03/18 12:29 Hospitalization ordered by Tavares Dillon for Inpatient Admission. Preliminary diagnosis are Upper GI bleed, Hypotension, Acute blood loss anemia. - Bed requested for Intensive Care Unit. - Status is Inpatient Admission. sg - Condition is Serious. - Problem is new. - Symptoms have improved. UTI on Admission? No Signatures: Dispatcher [employer] [facility] Lyric Suarez, RN RN Amanda Oro, RN RN Quinn Milligan, RN Keesha Kimbrough, RN Sarthak Schultz MD MD ps1 Corrections: (The following items were deleted from the chart) 10:50 10:35 Abdomen Pelvis W/Wo Con+CT.RAD.BRZ ordered. [facility] EDMO 12:28 12:17 Hospitalization Ordered by Hossein Lyle DO for Inpatient Admission. Preliminary ps1 diagnosis is Upper GI bleed; Acute blood loss anemia; Hypotension. Bed requested for Intensive Care Unit. Status is Inpatient Admission. Condition is Critical. Problem is new. Symptoms are unchanged. UTI on Admission? No. ps1 12:45 12:29 Hospitalization Ordered by Tavares Dillon MD for Inpatient Admission. Preliminary dw diagnosis is Upper GI bleed; Hypotension; Acute blood loss anemia. Bed requested for Intensive Care Unit. Status is Inpatient Admission. Condition is Serious. Problem is new. Symptoms have improved. UTI on Admission? No. ps1 14:15 12:45 12/03/2018 12:29 Hospitalization Ordered by Tavares Dillon MD for Inpatient sg Admission. Preliminary diagnosis is Upper GI bleed; Hypotension; Acute blood loss anemia. Bed requested for Intensive Care Unit. Status is Inpatient Admission. Condition is Serious. Problem is new. Symptoms have improved. UTI on Admission? No. dw
--- NOTE | 2018-12-03 12:19 | ER ---
Nurse's Notes [facility] Name: Kaitlyn Sesay Age: 58 yrs Sex: Female : 1960 Arrival Date: 12/03/2018 Time: 09:59 Bed 4 Private MD: Diagnosis: Upper GI bleed;Hypotension;Acute blood loss anemia Presentation: 12/03 10:00 Presenting complaint: EMS states: Vomiting blood for 2 days. Presented to this ER aj yesterday for same complaint. Patient is hypotensive and lethargic upon arrival. Transition of care: patient was not received from another setting of care. Onset of symptoms was December 02, 2018. Risk Assessment: Do you want to hurt yourself or someone else? Patient reports no desire to harm self or others. Initial Sepsis Screen: Does the patient meet any 2 criteria? No. Patient's initial sepsis screen is negative. Does the patient have a suspected source of infection? No. Patient's initial sepsis screen is negative. Care prior to arrival: Medication(s) given: Normal saline infusion, 500 mL, IV initiated. 20 GA, in the left antecubital area. 10:00 Method Of Arrival: EMS: [facility] aj 10:00 Acuity: VIKRAM 1 aj Triage Assessment: 10:04 General: Appears distressed, uncomfortable, Behavior is drowsy, listless. Pain: Denies aj pain. Neuro: Level of Consciousness is lethargic, listless, Oriented to person, place. Respiratory: Airway is patent Respiratory effort is even, unlabored, Respiratory pattern is regular, symmetrical. GI: Reports vomiting, vomiting blood. Derm: Skin is pale. Historical: - Allergies: 10:04 Azithromycin; aj 10:04 Cephalexin; aj 10:04 PENICILLINS; aj 10:04 Rocephin; aj 10:04 Rofecoxib; aj 10:04 Sulfa (Sulfonamide Antibiotics); aj - Home Meds: 10:04 Aspirin Oral 1 cap [Active]; Benadryl 25 mg Oral cap 1 cap 3 times per day [Active]; aj bupivicaine [Active]; gabapentin 600 mg Oral tab 1 tab 3 times per day [Active]; losartan 50 mg Oral tab 1 tab once daily [Active]; levothyroxine 150 mcg tab 1 tab once daily [Active]; metoprolol tartrate 100 mg Oral tab 1 tab once daily [Active]; [place] Oral 1 tab every 6 hours for Pain [Active]; sufentanil citrate intravenous for pain pump [Active]; - PMHx: 10:04 Thyroid problem; Chronic pain; aj - PSHx: 10:04 Appendectomy; Cholecystectomy; ; Hysterectomy; aj - Immunization history:: Adult Immunizations up to date. - Social history:: Smoking status: Patient/guardian denies using tobacco. - Ebola Screening: : Patient negative for fever greater than or equal to 101.5 degrees Fahrenheit, and additional compatible Ebola Virus Disease symptoms Patient denies exposure to infectious person Patient denies travel to an Ebola-affected area in the 21 days before illness onset No symptoms or risks identified at this time. Screenin:28 Abuse screen: Denies threats or abuse. Denies injuries from another. Nutritional bp screening: No deficits noted. Tuberculosis screening: No symptoms or risk factors identified. Fall Risk No fall in past 12 months (0 pts). No secondary diagnosis (0 pts). No IV (0 pts). Ambulatory Aid- None/Bed Rest/Nurse Assist (0 pts). Gait- Weak (10 pts.). Mental Status- Oriented to own ability (0 pts). Total Herr Fall Scale indicates No Risk (0-24 pts). Assessment: 10:05 General: SEE TRIAGE NOTE. bp 10:25 Reassessment: PT PLACED IN TRENDELENBERG POSITION. Pain: Denies pain. Neuro: Level of bp Consciousness is awake, alert, obeys commands, Oriented to person, place, time, situation, Appropriate for age. Cardiovascular: No deficits noted. Respiratory: Airway is patent Respiratory effort is even, unlabored, Respiratory pattern is regular, symmetrical. GI: Abdomen is non-distended, Reports HEMATEMESIS. : No signs and/or symptoms were reported regarding the genitourinary system. EENT: No signs and/or symptoms were reported regarding the EENT system. Derm: No deficits noted. Musculoskeletal: No deficits noted. 10:39 Reassessment: No changes from previously documented assessment. is at bedside, aj updated on plan of care and vitals tending up. 11:00 General: Appears ill, well developed, well nourished, Behavior is cooperative, anxious, sg restless. Neuro: Level of Consciousness is awake, obeys commands, confused, Oriented to person, situation, Speech is normal, Facial symmetry appears normal. Cardiovascular: Heart tones S1 S2 present Chest pain is denied. Respiratory: Airway is patent Respiratory effort is even, unlabored, Respiratory pattern is regular, symmetrical, Breath sounds are clear. GI: Abdomen is round distended, Reports nausea, vomiting. EENT: No signs and/or symptoms were reported regarding the EENT system. Derm: Skin is intact, Skin is dry, Skin is pale, Skin temperature is cool. 11:50 Reassessment: initial unity of PRBC has been administered at this time, pt tolerating sg well. 12:28 Reassessment: with anesthesiology at bedside with , orders received sg for increase rate of PRBC's to a bolus 999ml/hr rate, IV blood infusion rate increased as ordered, pt tolerating well. 12:32 Reassessment: more warm blankets applied at this time, the bear hugger warmer has been sg applied, pt reports feels better, temperature remains WNL at this time. 12:45 Reassessment: 2nd unit PRBC administered at this time. sg 13:00 Cardiovascular: Patient's skin is warm and dry. Chest pain is denied. Respiratory: sg Airway is patent Respiratory effort is even, unlabored, Respiratory pattern is regular, symmetrical. Derm: Skin is pink, warm \T\ dry. 13:06 Reassessment: Patient appears in no apparent distress at this time. No changes from previously documented assessment. 2nd unit of PRBC has been administered, pt tolerating well at this time. 13:19 Reassessment: Patient appears in no apparent distress at this time. awaiting ENDO at this time for procedure and for the insertion of the central line. 13:21 Reassessment: Patient appears in no apparent distress at this time. awaiting ENDO team sg at this time. 13:31 Reassessment: Patient appears in no apparent distress at this time. No changes from previously documented assessment. pt reports pain in the abd, reports nausea has decreased but is still there, pt IVPB infusing at this time, awaiting for ENDO team at this time, will continue to monitor Patient states feeling better. 13:58 Reassessment: Patient appears in no apparent distress at this time. family updated that ENDO team is on the way for prep at 1430 per Kaitlyn, pt and pt family stated understanding, pt reports she is getting more uncomfortable and feels a tightness in her stomach, abdomen appears round and distended at this time. Vital Signs: 10:04 BP 81 / 36; Pulse 72; Resp 13; Temp 97.9; Pulse Ox 96% on 2 lpm NC; Weight 79.38 kg; aj Height 5 ft. 4 in. (162.56 cm); 10:39 BP 83 / 51; Pulse 75; Resp 19; Pulse Ox 96% on 2 lpm NC; aj 11:00 BP 71 / 68; Pulse 75; Resp 16; Pulse Ox 98% on R/A; aj 11:30 BP 83 / 26; sg 12:02 BP 86 / 60; Pulse 70; Resp 17; Temp 97.4; Pulse Ox 100% on 3 lpm NC; sg 12:45 BP 107 / 67; Pulse 69; Resp 18 S; Temp 97.4; Pulse Ox 100% on 3 lpm NC; sg 12:55 BP 94 / 64; Pulse 68; Resp 18 S; Temp 97.4; Pulse Ox 100% on 3 lpm NC; sg 13:08 BP 85 / 62; Pulse 66; Resp 18; Temp 97.8; Pulse Ox 99% on 3 lpm NC; sg 13:20 BP 84 / 65; Pulse 68 MON; Resp 18 S; Temp 97.8; Pulse Ox 100% on 3 lpm NC; sg 13:30 BP 86 / 60; Pulse 68 MON; Resp 18 S; Temp 97.8; Pulse Ox 100% on 3 lpm NC; sg 13:41 BP 83 / 63; Pulse 66; Resp 18; Pulse Ox 100% on R/A; sg 13:46 BP 73 / 57; Pulse 73; Resp 20; Temp 97.8; Pulse Ox 100% on R/A; sg 14:00 BP 98 / 71; Pulse 73; Resp 18; Pulse Ox 100% on R/A; sg 10:04 Body Mass Index 30.04 (79.38 kg, 162.56 cm) aj 13:41 pt reports the o2 NC is causing pain in the nose, pt tolerating room air at 100 percent sg ED Course: 09:59 Patient arrived in ED. ss 09:59 Sarthak Mustafa MD is Attending Physician. ps1 10:00 Atwood, Keesha, RN is Primary Nurse. aj 10:02 Triage completed. aj 10:04 Arm band placed on right wrist. Patient placed in an exam room, on a stretcher, on aj oxygen, on director of cardiac cath lab, on pulse oximetry. 10:20 Patient has correct armband on for positive identification. Placed in gown. Bed in low sg position. Call light in reach. cafeteria monitor on. Pulse ox on. NIBP on. Warm blanket given. Verbal reassurance given. Head of bed lowered. 10:24 Inserted saline lock: 18 gauge in right EJ, using aseptic technique. Blood collected. bp 10:41 Notified ED physician of a critical lab result(s). hgb 6.1 hct 18.6. ss 11:02 Abdomen In Process Unspecified. EDMS 11:19 Primary Nurse role handed off by Keesha Atwood, SRI sg 11:19 Quinn Hahn, SRI is Primary Nurse. sg 12:16 Hossein Lyle DO is Hospitalizing Provider. ps1 12:28 Tavares Dillon MD is Hospitalizing Provider. ps1 12:40 Ramirez cath inserted, using sterile technique, 16 Fr., by dc, balloon inflated, to sv gravity drainage, returned clear yellow urine. 13:22 No provider procedures requiring assistance completed. Patient admitted, IV remains in sg place. intact. Administered Medications: 10:25 Drug: ProTONIX 80 mg Route: IVP; Site: left antecubital; aj 11:30 Follow up: Response: No adverse reaction sg 10:25 Drug: Zofran 4 mg Route: IVP; Site: left antecubital; aj 11:00 Follow up: Response: No adverse reaction; Nausea is decreased sg 11:10 Drug: Octreotide 50 mcg Route: IV; Rate: bolus; Site: left forearm; sg 11:30 Follow up: Response: No adverse reaction; IV Status: Completed infusion; pt reports sg nausea, has vomited x1 with coffee ground emesis noted 11:14 Drug: Octreotide Infusion (50 mcg/hr) - (Octreotide 500 mcg, NS 0.9% 500 ml) Route: IV; sg Rate: 50 ml/hr; Site: left forearm; 11:15 Drug: NS 0.9% 1000 ml Route: IV; Rate: 1 bolus; Site: right jugular; sg 11:15 Drug: NS 0.9% 1000 ml Route: IV; Rate: 1 bolus; Site: right jugular; sg 11:56 Drug: Zofran 4 mg Route: IVP; Site: right jugular; sv 12:30 Follow up: Response: No adverse reaction; Nausea unchanged; Vomiting decreased sg 13:15 Drug: ProTONIX 8 mg/hr Route: IV; Rate: 25 ml/hr; Site: right jugular; sg 13:48 Drug: Reglan 10 mg Route: IVP; Site: left forearm; sg 14:15 Not Given (Other Intervention Used): Levophed (4 mg/250 mL D5W 4 mcg/min IV at sg calculated rate Per protocol; (final concentration is 16 microgram/mL) Intake: 13:50 IV: 2000ml (IV Fluid); Total: 2000ml. sg 13:50 IV: 650ml (Blood Products); Total: 2650ml. sg Output: 13:52 Urine: 300ml (Ramirez); Total: 300ml. sg Outcome: 12:17 Decision to Hospitalize by Provider. ps1 12:29 Decision to Hospitalize by Provider. ps1 14:00 Admitted to OR accompanied by nurse, family with patient, via stretcher, with chart. sg 14:00 critical 14:00 Instructed on the need for admit, safety practices, Demonstrated understanding of instructions. 14:15 Patient left the ED. sg Signatures: Dispatcher [employer] Lyric Guerra, Quinn Stern RN, RN RN sg Myers, Amanda, RN RN aj Smirch, Shelby, RN RN ss Peltier, Brian, RN RN bp Singer, Phillip, MD MD ps1
[2018-12-03 13:01] LABS: Anisocytosis 1+; Blood Morphology Comment NOTED (NOT SEEN); Hypochromasia 1+; Macrocytosis 1+; Platelet Estimate DECR; Urine White Blood Cell Casts OK
[2018-12-03] MEDS ORDERED: CEFTRIAXONE 1 GM/NS 50 ML 1 GM/50 ML BAG IV SCH (13:59)
[2018-12-03] MEDS ORDERED: METOCLOPRAMIDE 10 MG/2mL INJ ONE (14:01)
[2018-12-03] MEDS ORDERED: METOCLOPRAMIDE 10 MG/2mL INJ IV SCH (14:01)
[2018-12-03] MEDS ORDERED: Ringers Lactate 1,000 ML IV ONE (14:36)
[2018-12-03] MEDS ORDERED: EPINEPHRINE/PF 1 MG/ML AMP ONE (14:57)
[2018-12-03 15:20] LABS: Urine Blood NEGATIVE (NEG); Urine Glucose NEGATIVE (NEG); Urine Protein NEGATIVE (NEG)
[2018-12-03] MEDS ORDERED: ALBUMIN HUMAN 25% 100 ML IV ONE (15:27)
[2018-12-03] MEDS ORDERED: Phenylephrine HCl 10 MG/ML 1 ML VIAL ONE (15:39)
[2018-12-03 16:01] LABS: Hematocrit 26.4 % (36.0-45.0)
--- NOTE | 2018-12-03 16:21 | EKG ---
Test Date: 2018-12-03 Test Time: 10:01:56 Skiing Teacher: JENY MEASUREMENT RESULTS: Intervals: Rate: 74 NJ: 140 QRSD: 86 QT: 432 QTc: 479 [place]: P: 29 NJ: 140 QRS: 58 T: 37 INTERPRETIVE STATEMENTS: Normal sinus rhythm Normal ECG Compared to ECG 02/16/2012 22:17:50 Myocardial infarct finding no longer present T-wave abnormality no longer present Possible ischemia no longer present Electronically Signed On 12-03-18 16:19:38 CDT by Abdiel Pennington
[2018-12-03 17:08] VITALS: BMI 29.8
[2018-12-03] MEDS ORDERED: ONDANSETRON 4 MG/2 ML VIAL IV PRN (17:12)
[2018-12-03] MEDS: CEFTRIAXONE/SWI 1gm 1 GM/10 ML SYR IV SCH (17:38)
[2018-12-03 17:51] LABS: Protime INR 1.85
[2018-12-03] MEDS ORDERED: OCTREOTIDE 500 MCG in NA CHLORIDE 0.9% 500 ML IV SCH (21:00)
[2018-12-03] MEDS: OCTREOTIDE 500 MCG in NA CHLORIDE 0.9% 500 ML IV SCH (21:20)
[2018-12-03 23:11] LABS: Hematocrit 26.2 % (36.0-45.0)
--- NOTE | 2018-12-03 23:28 | OP ---
Surgeon: Jose Martin Cordero MD Procedure To Be Performed: Esophagogastroduodenoscopy. Indication For Procedure: Massive upper GI bleed in a patient with history of cirrhosis. Plan For Anesthesia: Monitored anesthesia care. Complexity: High due to acute bleeding and comorbidities. High risk procedure. Technique: After obtaining informed consent from the patient and explaining risks and complications which include but are not limited to bleeding, infection, perforation, anesthesia complication, and a spiration, the patient was placed in the left lateral position and sedation was given. From then on, the scope was advanced to the mouth and carefully guided up till the second portion of the duodenum. After the completion of examination, scope and equipment were withdrawn and procedure terminated in a safe manner. Findings: Esophagus: From mid to distal esophagus, large grade 3-4 varices were seen. Several of t hese had red signs. However, in the mid esophagus of varix had a platelet block which is a likely so urce of bleeding. After completion of the remainder exam of the stomach and duodenum, decision was t akwayne to band the varices and also band the one with a platelet plug. Three bands were successfully p laced in the distal esophagus. However, when I attempted to place a band at the level of the varix w hich had bled, it immediately opened up and started to bleed significantly. I placed one band but it slipped off, therefore quickly we placed another two bands in succession. However, it appeared that they were also slipping off and they eventually did. There appears to be some scarring in the esoph sukhi that is not allowing us to do banding. Subsequently, I reopened the new banding kit and again a ttempted to place a band at the bleeding varix. This time, with some difficulty, I was able to have a good suction, so I was able to place adequate bands. This resulted in the stoppage of bleeding. S ubsequently, I spent around 3-5 minutes observing and the band appeared to stay held and not slipping off. Stomach: Altered blood was seen in the entire stomach. This was washed to clear any other evidence of bleeding. In the fundus, there was a very large clot. I spent significant time suctioning and tr rupesh to clean to make sure there is no other source of bleeding. A visualization was still not compl ete, but there does not seem to be active bleeding from behind the clot. Duodenum: The bulb and second portion appeared normal. Complications: None. Tolerance To Anesthesia: Excellent. Postoperative Diagnoses: Large esophageal varices with bleeding, status post banding which was diffi cult, however eventually successful. Gastritis. Also, impaired visibility in the stomach due to lar ge clot. Plan: Continue Protonix drip as well as octreotide infusion. Also continue ceftriaxone. Keep n.p.o . for 24 hours. We have to monitor closely for any further signs of bleeding. If there is a risk of bleeding, we would recommend to [facility] as this is already a difficult case. If no bleeding, we can start the patient on clear liquids after 24 hours and see how she tole rates it. This was discussed with the family and the primary care team. US/MODL Voice ID: [id number] Report ID: [id number]
[2018-12-03] MEDS: PANTOPRAZOLE INJ 80 MG in NA CHLORIDE 0.9% 250 ML IV SCH (23:47)
[2018-12-04 00:05] VITALS: O2SAT 97
[2018-12-04 04:35] LABS: Hematocrit 25.5 % (36.0-45.0)
--- NOTE | 2018-12-04 04:50 | HP ---
Date of Admission: 12/03/2018 Chief Complaint: GI bleeding. History Of Present Illness: A 58-year-old female was brought to the emergency room because of vomiti ng of blood. The patient had evaluation done and she was found to have significant drop of hemoglobi n compared to the previous visit. The patient subsequently underwent emergency upper GI endoscopy, w hich showed evidence of varices. The patient had banding done and transferred to ICU. Past Medical History: The patient is known to have history of chronic pain, hypothyroidism, hyperten ellen. Past Surgical History: Positive for gallbladder surgery, hysterectomy and appendectomy. Allergies: INCLUDE AZITHROMYCIN, CEPHALEXIN, PENICILLIN, ROCEPHIN, SULFA DRUGS. Home Medicines: Please refer to the chart. Review of Systems: There was no history of fever, chills, rigors. Physical Examination: General: Revealed post procedure patient lethargic. Vital Signs: Blood pressure normal, pulse 96. HEENT: Otherwise negative. Neck: Supple. JVD negative. Chest: Clear. Heart: Regular. Abdomen: No focal mass noted. Bowel sounds present. Laboratory Data: White count 8.5, hemoglobin 6.1, platelet count 146. Chem profile: Lipase 45, amm onia level 62, potassium 5.2, bicarb 19, BUN 51, creatinine 1.1. Assessment: 1.Upper gastrointestinal bleeding from esophageal varices. 2.Hypertension by history. 3.History of chronic pain management issues. 4.Hypothyroidism. Plan: The patient in view of her variceal bleeding had an emergency endoscopy. The patient is ala dy accepted to [facility] for further management. Pending the transfer, she will be kept n.p.o. IV fluids and hemoglobin and hematocrit will be checked. ÓSCAR/DAMI Voice ID: [id number]
[2018-12-04] MEDS: CEFTRIAXONE/SWI 1gm 1 GM/10 ML SYR IV SCH (04:53)
[2018-12-04] MEDS: OCTREOTIDE 500 MCG in NA CHLORIDE 0.9% 500 ML IV SCH (07:43)
[2018-12-04] MEDS: PANTOPRAZOLE INJ 80 MG in NA CHLORIDE 0.9% 250 ML IV SCH (07:44)
[2018-12-04] MEDS ORDERED: LACTULOSE 20 GM/30 ML UCUP PO SCH (09:00)
[2018-12-04] MEDS ORDERED: LACTULOSE 20 GM/30 ML UCUP PR ONE (10:00)
[2018-12-04] MEDS: HALOPERIDOL LACT 5 MG/ML INJ IV PRN ×2 (10:40→13:53)
[2018-12-04 12:13] LABS: Absolute Lymphocytes (CBC) 3.3 K/uL (0.7-4.9); Basophils % 0.4 % (0-1.3); Eosinophils % 0.2 % (0-4.4); Hematocrit 26.7 % (36.0-45.0); Lymphocytes % 20.3 % (15.3-44.8); MPV 9.7 fL (7.6-11.3); Monocytes % 9.7 % (3.3-12.3); RBC Red Blood Cell Count 2.79 M/uL (3.86-4.86)
[2018-12-04 12:54] LABS: Bilirubin Total 1.1 mg/dL (0.2-1.0); Magnesium 2.2 mg/dL (1.8-2.4); Phosphorus 2.3 mg/dL (2.5-4.9); Potassium 3.9 mmol/L (3.5-5.1); Protein, Total 5.6 g/dL (6.4-8.2)
[2018-12-04 14:53] VITALS: BP 118/65
[2018-12-04 15:00] VITALS: TEMP 97.4
== END 2018-12-04 13:55 | disposition short-term general hospital (02) | DRG 369 ==
LOC: ER 09:57 → 3RD-ICU 12:37
PROVIDERS: ADMIT Internal Medicine; ATTEND Internal Medicine
PROC: 30233N1 Transfusion of Nonautologous Red Blood Cells into Peripheral Vein, Percutaneous Approach (ICD-10-PCS; 2018-12-03)
PROC: 0W3P8ZZ Control Bleeding in Gastrointestinal Tract, Via Natural or Artificial Opening Endoscopic (ICD-10-PCS; principal; 2018-12-03 11:45)
DX: I85.01 Esophageal varices with bleeding (principal); R71.0 Precipitous drop in hematocrit; K29.70 Gastritis, unspecified, without bleeding; K74.60 Unspecified cirrhosis of liver; I10 Essential (primary) hypertension; E03.9 Hypothyroidism, unspecified; G89.29 Other chronic pain; Z88.0 Allergy status to penicillin; Z88.2 Allergy status to sulfonamides
CPT/HCPCS: 36415; 51702; 70450; 71045; 74177; 80048; 80053; 80076; 80307; 81003; 81015; 82140; 83690; 83735; 83880; 84100; 84484; 85014; 85018; 85025; 85610; 85730; 86850; 86900; 86901; 87086; 87088; 93005; 96361; 96374; 99285; 99291; 99292; C9113; J0171; J0696; J1630; J2354; J2370; J2405; J2765; J7030; P9016; P9047; Q9967

== ENCOUNTER 2019-04-12 13:10 | Emergency (ER) | payer OTHER ==
--- OUTSIDE RECORDS SUMMARY | 2019-04-12 13:30 | XMS REPORT ---
:1960 Author Organization [facility] Address [address] Zaragoza [address] [place] [address] Care Team Providers Name Role Phone DONAVON MISTRY Unavailable Unavailable YRN PORTILLO Unavailable Unavailable Problems This patient has no known problems. Allergies, Adverse Reactions, Alerts This patient has no known allergies or adverse reactions. Medications This patient has no known medications. Results Test Description Test Time Test Comments Text Results Atomic Results Result Comments TISSUE EXAM 2019-01-23 17:34:00 Surgical Pathology Report Case: [id number] Authorizing Provider: Donavon Mistry MD Collected: 01/21/2019 1144 Ordering Location: [facility] Endoscopy Received: 01/21/2019 1444 Services Pathologist: Rachael Savage MD Specimens: A) - Small Bowel, NOS, Small Bowel Biopsy B) - Stomach, Antrum, Gastric Antrum Biopsy A. SMALL BOWEL BIOPSY- DUODENAL MUCOSA WITH NO DIAGNOSTIC ALTERATIONB. STOMACH ANTRUM BIOPSY- CHRONIC INACTIVE GASTRITIS, MILD- NO INTESTINAL METAPLASIA, DYSPLASIA OR INVASIVE CARCINOMA IDENTIIFIED- NO HELICOBACTER PYLORI LIKE ORGANISMS IDENTIFIED ON WARTHIN STARRY STAIN Signing Pathologist Direct Phone Line: [phone] signed by Rachael Savage MD on 01/23/2019 at 5:34 [id number] X 2, [id number] VARICES WITHOUT BLEEDINGA. Small bowel NOSB. Gastric antrumPart A. The specimen is received in formalin container labeled with the patient's name, date of and medical record number. The specimen consists of multiple portions of lindquist-brown tissue 0.6 x 0.4 x 0.3 cm in aggregate submitted in toto in one cassette.Part B. The specimen is received in formalin container labeled with the patient's name, date of and medical record number and consists of multiple portions of lindquist-brown tissue 0.6 x 0.4 x 0.3 cm in aggregate submitted in toto in one cassette. CB/ewPerformed.The interpretation of this case included the use of immunohistochemistry or special stains.Control Slides Examined: In-house known positive controls were evaluated along with the test tissue. These control slides run alongside of the patients sample show appropriate staining. Internal positive and negative controls when available are evaluated Immunohistochemistry technical testing was performed at [facility], Pathology Laboratory where it was developed and its performance characteristics were determined. It has not been cleared or approved by the U.S. Food and Drug Administration. The FDA has determined that such clearance or approval is not necessary. The test is used for clinical purposes. It should not be regarded as investigational or for research. This laboratory is certified under the Clinical Laboratory Improvement Amendments of 1988 (CLIA-88) as qualified to perform high complexity clinical laboratory testing. POCT-GLUCOSE METER 2018-12-15 11:56:00 Test Item Value Reference Range Comments POC-GLUCOSE METER (BEAKER) (test 207 mg/dL 70-110 TESTED AT [facility] [address] [place] [address] pyvm=9525) [facility] [address] POCT-GLUCOSE [id number] 08:03:00 Test Item Value Reference Range Comments POC-GLUCOSE METER (BEAKER) 117 mg/dL 70-110 TESTED AT [address] (test apvg=6468) [place] [address] [id number] 06:09:00 Test Item Value Reference Range Comments MAGNESIUM (BEAKER) (test bceq=315) 1.9 mg/dL 1.6-2.6 BASIC METABOLIC [id number] 06:09:00 Test Item Value Reference Range Comments SODIUM (BEAKER) (test 136 meq/L 136-145 cxdn=415) POTASSIUM (BEAKER) (test 3.8 meq/L 3.5-5.1 pyfv=670) CHLORIDE (BEAKER) (test 100 meq/L 98-107 otlk=564) CO2 (BEAKER) (test 29 meq/L 22-29 tjxg=898) BLOOD UREA NITROGEN 10 mg/dL 7-21 (BEAKER) (test fvjm=715) CREATININE (BEAKER) (test 0.71 mg/dL 0.57-1.25 ckuj=723) GLUCOSE RANDOM (BEAKER) 100 mg/dL 70-105 (test gnjk=033) CALCIUM (BEAKER) (test 8.6 mg/dL 8.4-10.2 hkkf=847) EGFR (BEAKER) (test 84 mL/min/1.73 sq m ESTIMATED GFR IS NOT bivs=7452) ACCURATE CREATININE CLEARANCE IN PREDICTING GLOMERULAR FILTRATION RATE. ESTIMATED GFR IS NOT APPLICABLE FOR DIALYSIS PATIENTS. HEPATIC FUNCTION [id number] 06:09:00 Test Item Value Reference Range Comments TOTAL PROTEIN (BEAKER) (test jghe=514) 5.8 gm/dL 6.0-8.3 ALBUMIN (BEAKER) (test pfgl=3861) 3.3 g/dL 3.5-5.0 BILIRUBIN TOTAL (BEAKER) (test ehpz=249) 1.5 mg/dL 0.2-1.2 BILIRUBIN DIRECT (BEAKER) (test tozv=773) 0.9 mg/dL 0.1-0.5 ALKALINE PHOSPHATASE (BEAKER) (test qxdg=913) 70 U/L 40-150 AST (SGOT) (BEAKER) (test leju=623) 38 U/L 5-34 ALT (SGPT) (BEAKER) (test fwlr=397) 44 U/L 6-55 [id number] 05:47:00 Test Item Value Reference Range Comments PROTIME (BEAKER) (test nvbp=909) 17.3 seconds 11.9-14.2 INR (BEAKER) (test meks=998) 1.5 <=5.9 PARTIAL THROMBOPLASTIN TIME (BEAKER) (test 36.2 seconds 22.5-36.0 iypa=960) Effective 10/24/2018: PT Reference Range ChangeNew: 11.9-14.2 Previous: 11.7- 14.7RECOMMENDED COUMADIN/WARFARIN INR THERAPY RANGESSTANDARD DOSE: 2.0-3.0 Includes: PROPHYLAXIS for venous thrombosis, systemic embolization; TREATMENT for venous thrombosis and/or pulmonary embolus.HIGH RISK: Target INR is2.5-3.5 for patients wiht mechanical heart valves.CBC W/PLT COUNT & AUTO [id number] 05:46:00 Test Item Value Reference Range Comments WHITE BLOOD CELL COUNT (BEAKER) (test dbci=581) 8.4 K/ L 3.5-10.5 RED BLOOD CELL COUNT (BEAKER) (test zwax=185) 2.61 M/ L 3.93-5.22 HEMOGLOBIN (BEAKER) (test apjv=055) 8.3 GM/DL 11.2-15.7 HEMATOCRIT (BEAKER) (test rfso=817) 25.5 % 34.1-44.9 MEAN CORPUSCULAR VOLUME (BEAKER) (test avre=044) 97.7 fL 79.4-94.8 MEAN CORPUSCULAR HEMOGLOBIN (BEAKER) (test 31.8 pg 25.6-32.2 afwf=166) MEAN CORPUSCULAR HEMOGLOBIN CONC (BEAKER) (test 32.5 GM/DL 32.2-35.5 liwg=180) RED CELL DISTRIBUTION WIDTH (BEAKER) (test 20.8 % 11.7-14.4 zxnw=472) PLATELET COUNT (BEAKER) (test cisv=258) 89 K/CU MM 150-450 MEAN PLATELET VOLUME (BEAKER) (test nxdy=039) 11.3 fL 9.4-12.3 NUCLEATED RED BLOOD CELLS (BEAKER) (test 0 /100 WBC 0-0 xqqs=911) NEUTROPHILS RELATIVE PERCENT (BEAKER) (test 55 % pdol=472) LYMPHOCYTES RELATIVE PERCENT (BEAKER) (test 27 % rioc=401) MONOCYTES RELATIVE PERCENT (BEAKER) (test 16 % ezve=460) EOSINOPHILS RELATIVE PERCENT (BEAKER) (test 2 % kagz=596) BASOPHILS RELATIVE PERCENT (BEAKER) (test 1 % mvwy=265) NEUTROPHILS ABSOLUTE COUNT (BEAKER) (test 4.57 K/ L 1.56-6.13 ijjx=968) LYMPHOCYTES ABSOLUTE COUNT (BEAKER) (test 2.23 K/ L 1.18-3.74 sisz=093) MONOCYTES ABSOLUTE COUNT (BEAKER) (test lzlr=903) 1.30 K/ L 0.24-0.36 EOSINOPHILS ABSOLUTE COUNT (BEAKER) (test 0.18 K/ L 0.04-0.36 nzsi=255) BASOPHILS ABSOLUTE COUNT (BEAKER) (test gpox=470) 0.04 K/ L 0.01-0.08 IMMATURE GRANULOCYTES-RELATIVE PERCENT (BEAKER) 1 % 0-1 (test inzo=3275) POCT-GLUCOSE [id number] 23:48:00 Test Item Value Reference Range Comments POC-GLUCOSE METER (BEAKER) 182 mg/dL 70-110 TESTED AT [address] (test iduj=8752) [facility] [address] POCT-GLUCOSE [id number] 18:04:00 Test Item Value Reference Range Comments POC-GLUCOSE METER (BEAKER) 95 mg/dL 70-110 TESTED AT [address] (test tdmn=4365) [facility] [address] HEMOGLOBIN AND [id number] 17:04:00 Test Item Value Reference Range Comments HEMOGLOBIN (BEAKER) (test mjwk=414) 8.8 GM/DL 11.2-15.7 HEMATOCRIT (BEAKER) (test wcgp=417) 27.4 % 34.1-44.9 BLOOD GAS, [id number] 15:45:00 Test Item Value Reference Range Comments PH ARTERIAL (BEAKER) (test adjl=230) 7.55 7.35-7.45 PCO2 ARTERIAL (BEAKER) (test svpr=233) 31 mmHg 35-45 PO2 ARTERIAL (BEAKER) (test ghpm=814) 62 mmHg 80-90 O2 SATURATION ARTERIAL (BEAKER) (test zbmi=825) 94.5 % 96.0-97.0 HCO3 ARTERIAL (BEAKER) (test kfvf=206) 27 mmol/L 21-29 BASE EXCESS ARTERIAL (BEAKER) (test zyrq=141) 4.5 mmol/L -2.0-3.0 PATIENT TEMPERATURE (BEAKER) (test qfhz=5123) 37.0 C Please draw blood w/ patient on room air and sitting for at least 15 minutes prior to lab drawPOCT-GLUCOSE [id number] 11:29:00 Test Item Value Reference Range Comments POC-GLUCOSE METER (BEAKER) 205 mg/dL 70-110 TESTED AT [address] (test daku=7648) [place] [id number] RAD, CHEST, 1 VIEW, NON [id number] 08:46:00Reason for exam:->shortness of breathShould this be performed at the bedside?->YesFINAL REPORT AP view of the chest dated 12/14/2018 CLINICAL INFORMATION: shortness of breath Comment: Heart is normal in size. Pulmonary vasculature is unremarkable. Subsegmental atelectasis is seen in both lower lobes. The rest of the lungs are clear. No pulmonary infiltrate or pleural effusion is present. Impression: Bibasilar subsegmental atelectasis. Signed: Daphne Bishop MDReport Verified Date/Time: 12/14/2018 08:46:53 Reading Location: [facility] Radiology Reading Room Electronically signed by: DAPHNE BISHOP M.D. on 08:46 AMPOCT-GLUCOSE [id number] 08:21:00 Test Item Value Reference Range Comments POC-GLUCOSE METER (BEAKER) 107 mg/dL 70-110 TESTED AT [facility] [address] [facility] (test skap=3340) [facility] [address] HEMOGLOBIN [id number] 08:02:00 Test Item Value Reference Range Comments HEMOGLOBIN A1C (BEAKER) (test ohhx=276) 5.1 % 4.3-6.1 [id number] 07:51:00 Test Item Value Reference Range Comments MAGNESIUM (BEAKER) (test uxfw=045) 1.8 mg/dL 1.6-2.6 BASIC METABOLIC [id number] 07:51:00 Test Item Value Reference Range Comments SODIUM (BEAKER) (test 137 meq/L 136-145 iamk=105) POTASSIUM (BEAKER) (test 3.3 meq/L 3.5-5.1 rqum=070) CHLORIDE (BEAKER) (test 100 meq/L 98-107 qujx=961) CO2 (BEAKER) (test 28 meq/L 22-29 fnhm=855) BLOOD UREA NITROGEN 11 mg/dL 7-21 (BEAKER) (test lfhz=774) CREATININE (BEAKER) (test 0.65 mg/dL 0.57-1.25 tosk=069) GLUCOSE RANDOM (BEAKER) 91 mg/dL 70-105 (test morg=089) CALCIUM (BEAKER) (test 8.3 mg/dL 8.4-10.2 nakc=753) EGFR (BEAKER) (test 93 mL/min/1.73 sq m ESTIMATED GFR IS NOT zljf=4528) ACCURATE CREATININE CLEARANCE IN PREDICTING GLOMERULAR FILTRATION RATE. ESTIMATED GFR IS NOT APPLICABLE FOR DIALYSIS PATIENTS. Specimen slightly ictericHEPATIC FUNCTION [id number] 07:51:00 Test Item Value Reference Range Comments TOTAL PROTEIN (BEAKER) (test ziga=049) 5.4 gm/dL 6.0-8.3 ALBUMIN (BEAKER) (test pwne=5204) 3.2 g/dL 3.5-5.0 BILIRUBIN TOTAL (BEAKER) (test sdgk=950) 1.9 mg/dL 0.2-1.2 BILIRUBIN DIRECT (BEAKER) (test tvnf=102) 0.9 mg/dL 0.1-0.5 ALKALINE PHOSPHATASE (BEAKER) (test qnah=808) 63 U/L 40-150 AST (SGOT) (BEAKER) (test pmyt=893) 40 U/L 5-34 ALT (SGPT) (BEAKER) (test isud=965) 48 U/L 6-55 Specimen slightly ictericCBC W/PLT COUNT & AUTO [id number] 05:44 :00 Test Item Value Reference Range Comments WHITE BLOOD CELL COUNT (BEAKER) (test zkpo=492) 8.1 K/ L 3.5-10.5 RED BLOOD CELL COUNT (BEAKER) (test zajq=768) 2.55 M/ L 3.93-5.22 HEMOGLOBIN (BEAKER) (test szyo=004) 7.9 GM/DL 11.2-15.7 HEMATOCRIT (BEAKER) (test csbf=135) 25.1 % 34.1-44.9 MEAN CORPUSCULAR VOLUME (BEAKER) (test kioe=461) 98.4 fL 79.4-94.8 MEAN CORPUSCULAR HEMOGLOBIN (BEAKER) (test 31.0 pg 25.6-32.2 zlhn=561) MEAN CORPUSCULAR HEMOGLOBIN CONC (BEAKER) (test 31.5 GM/DL 32.2-35.5 pvwp=771) RED CELL DISTRIBUTION WIDTH (BEAKER) (test 21.1 % 11.7-14.4 iuvm=285) PLATELET COUNT (BEAKER) (test kzxc=286) 81 K/CU MM 150-450 MEAN PLATELET VOLUME (BEAKER) (test uuec=211) 12.1 fL 9.4-12.3 NUCLEATED RED BLOOD CELLS (BEAKER) (test 0 /100 WBC 0-0 fmjk=131) NEUTROPHILS RELATIVE PERCENT (BEAKER) (test 55 % frwj=962) LYMPHOCYTES RELATIVE PERCENT (BEAKER) (test 28 % ydph=813) MONOCYTES RELATIVE PERCENT (BEAKER) (test 13 % jsev=874) EOSINOPHILS RELATIVE PERCENT (BEAKER) (test 3 % ixah=677) BASOPHILS RELATIVE PERCENT (BEAKER) (test 1 % anmd=902) NEUTROPHILS ABSOLUTE COUNT (BEAKER) (test 4.46 K/ L 1.56-6.13 qguo=985) LYMPHOCYTES ABSOLUTE COUNT (BEAKER) (test 2.25 K/ L 1.18-3.74 lqmo=516) MONOCYTES ABSOLUTE COUNT (BEAKER) (test qibv=965) 1.09 K/ L 0.24-0.36 EOSINOPHILS ABSOLUTE COUNT (BEAKER) (test 0.22 K/ L 0.04-0.36 oygl=461) BASOPHILS ABSOLUTE COUNT (BEAKER) (test ktrf=364) 0.06 K/ L 0.01-0.08 IMMATURE GRANULOCYTES-RELATIVE PERCENT (BEAKER) 1 % 0-1 (test ylwb=1119) [id number] 05:41:00 Test Item Value Reference Range Comments PROTIME (BEAKER) (test ljoa=711) 18.5 seconds 11.9-14.2 INR (BEAKER) (test hhwq=770) 1.6 <=5.9 PARTIAL THROMBOPLASTIN TIME (BEAKER) (test 38.0 seconds 22.5-36.0 sxkx=321) Effective 10/24/2018: PT Reference Range ChangeNew: 11.9-14.2 Previous: 11.7- 14.7RECOMMENDED COUMADIN/WARFARIN INR THERAPY RANGESSTANDARD DOSE: 2.0-3.0 Includes: PROPHYLAXIS for venous thrombosis, systemic embolization; TREATMENT for venous thrombosis and/or pulmonary embolus.HIGH RISK: Target INR is2.5-3.5 for patients wiht mechanical heart valves.POCT-GLUCOSE [id number] 00:43:00 Test Item Value Reference Range Comments POC-GLUCOSE METER (BEAKER) 131 mg/dL 70-110 TESTED AT [address] (test ghct=1821) [facility] [address] POCT-GLUCOSE [id number] 17:27:00 Test Item Value Reference Range Comments POC-GLUCOSE METER (BEAKER) 133 mg/dL 70-110 TESTED AT [place] [id number] [facility] (test gbtg=0188) [facility] [address] POCT-GLUCOSE [id number] 14:27:00 Test Item Value Reference Range Comments POC-GLUCOSE METER (BEAKER) 136 mg/dL 70-110 TESTED AT [facility] [address] [facility] (test tsaa=7528) [facility] [address] POCT-GLUCOSE [id number] 12:53:00 Test Item Value Reference Range Comments POC-GLUCOSE METER (BEAKER) 207 mg/dL 70-110 TESTED AT [facility] [address] [facility] (test wqex=7359) [facility] [address] [id number] 07:55:00 Test Item Value Reference Range Comments PHOSPHORUS (BEAKER) (test khuz=985) 2.9 mg/dL 2.3-4.7 [id number] 07:55:00 Test Item Value Reference Range Comments MAGNESIUM (BEAKER) (test cskm=759) 1.9 mg/dL 1.6-2.6 BASIC METABOLIC [id number] 07:55:00 Test Item Value Reference Range Comments SODIUM (BEAKER) (test 138 meq/L 136-145 vlip=301) POTASSIUM (BEAKER) (test 3.5 meq/L 3.5-5.1 uqoc=598) CHLORIDE (BEAKER) (test 103 meq/L 98-107 edrx=100) CO2 (BEAKER) (test 27 meq/L 22-29 baoc=517) BLOOD UREA NITROGEN 14 mg/dL 7-21 (BEAKER) (test jkjs=628) CREATININE (BEAKER) (test 0.72 mg/dL 0.57-1.25 fvcn=099) GLUCOSE RANDOM (BEAKER) 112 mg/dL 70-105 (test uusf=063) CALCIUM (BEAKER) (test 8.8 mg/dL 8.4-10.2 bvlh=396) EGFR (BEAKER) (test 83 mL/min/1.73 sq m ESTIMATED GFR IS NOT bprk=5141) ACCURATE CREATININE CLEARANCE IN PREDICTING GLOMERULAR FILTRATION RATE. ESTIMATED GFR IS NOT APPLICABLE FOR DIALYSIS PATIENTS. Specimen slightly ictericHEPATIC FUNCTION [id number] 07:55:00 Test Item Value Reference Range Comments TOTAL PROTEIN (BEAKER) (test sewx=493) 6.0 gm/dL 6.0-8.3 ALBUMIN (BEAKER) (test tmmi=9225) 3.6 g/dL 3.5-5.0 BILIRUBIN TOTAL (BEAKER) (test cdwz=392) 2.1 mg/dL 0.2-1.2 BILIRUBIN DIRECT (BEAKER) (test pugg=390) 1.0 mg/dL 0.1-0.5 ALKALINE PHOSPHATASE (BEAKER) (test qkqn=593) 67 U/L 40-150 AST (SGOT) (BEAKER) (test gsfk=712) 44 U/L 5-34 ALT (SGPT) (BEAKER) (test vohd=093) 64 U/L 6-55 Specimen slightly ictericPOCT-GLUCOSE [id number] 07:52:00 Test Item Value Reference Range Comments POC-GLUCOSE METER (BEAKER) 117 mg/dL 70-110 TESTED AT [facility] [address] [facility] (test thii=5743) [place] [address] CBC W/PLT COUNT & AUTO [id number] 06:01:00 Test Item Value Reference Range Comments WHITE BLOOD CELL COUNT (BEAKER) (test qoit=752) 10.1 K/ L 3.5-10.5 RED BLOOD CELL COUNT (BEAKER) (test jljn=256) 2.79 M/ L 3.93-5.22 HEMOGLOBIN (BEAKER) (test iamt=519) 8.6 GM/DL 11.2-15.7 HEMATOCRIT (BEAKER) (test adsm=558) 28.0 % 34.1-44.9 MEAN CORPUSCULAR VOLUME (BEAKER) (test wpme=432) 100.4 fL 79.4-94.8 MEAN CORPUSCULAR HEMOGLOBIN (BEAKER) (test 30.8 pg 25.6-32.2 rajo=549) MEAN CORPUSCULAR HEMOGLOBIN CONC (BEAKER) (test 30.7 GM/DL 32.2-35.5 msph=681) RED CELL DISTRIBUTION WIDTH (BEAKER) (test 21.1 % 11.7-14.4 perb=910) PLATELET COUNT (BEAKER) (test tqad=149) 89 K/CU MM 150-450 MEAN PLATELET VOLUME (BEAKER) (test souu=581) 11.6 fL 9.4-12.3 NUCLEATED RED BLOOD CELLS (BEAKER) (test 0 /100 WBC 0-0 bdaq=976) NEUTROPHILS RELATIVE PERCENT (BEAKER) (test 65 % zgsk=187) LYMPHOCYTES RELATIVE PERCENT (BEAKER) (test 19 % ijxz=550) MONOCYTES RELATIVE PERCENT (BEAKER) (test 13 % xoxh=647) EOSINOPHILS RELATIVE PERCENT (BEAKER) (test 2 % apak=962) BASOPHILS RELATIVE PERCENT (BEAKER) (test 1 % hpcv=554) NEUTROPHILS ABSOLUTE COUNT (BEAKER) (test 6.56 K/ L 1.56-6.13 lifk=242) LYMPHOCYTES ABSOLUTE COUNT (BEAKER) (test 1.87 K/ L 1.18-3.74 ugyp=483) MONOCYTES ABSOLUTE COUNT (BEAKER) (test zcki=802) 1.34 K/ L 0.24-0.36 EOSINOPHILS ABSOLUTE COUNT (BEAKER) (test 0.23 K/ L 0.04-0.36 fsrm=941) BASOPHILS ABSOLUTE COUNT (BEAKER) (test zatb=206) 0.06 K/ L 0.01-0.08 IMMATURE GRANULOCYTES-RELATIVE PERCENT (BEAKER) 1 % 0-1 (test eibs=8160) [id number] 05:56:00 Test Item Value Reference Range Comments PROTIME (BEAKER) (test yxlx=665) 18.7 seconds 11.9-14.2 INR (BEAKER) (test hpfz=216) 1.7 <=5.9 PARTIAL THROMBOPLASTIN TIME (BEAKER) (test 39.7 seconds 22.5-36.0 ptid=341) Effective 10/24/2018: PT Reference Range ChangeNew: 11.9-14.2 Previous: 11.7- 14.7RECOMMENDED COUMADIN/WARFARIN INR THERAPY RANGESSTANDARD DOSE: 2.0-3.0 Includes: PROPHYLAXIS for venous thrombosis, systemic embolization; TREATMENT for venous thrombosis and/or pulmonary embolus.HIGH RISK: Target INR is2.5-3.5 for patients wiht mechanical heart valves.BLOOD [id number] 02:01:00 Test Item Value Reference Range Comments CULTURE (BEAKER) (test bscq=4677) No growth in 5 days BLOOD [id number] 02:01:00 Test Item Value Reference Range Comments CULTURE (BEAKER) (test ngxw=8019) No growth in 5 days POCT-GLUCOSE [id number] 00:06:00 Test Item Value Reference Range Comments POC-GLUCOSE METER (BEAKER) 118 mg/dL 70-110 TESTED AT [address] (test yqmm=7244) [facility] [address] POCT-GLUCOSE [id number] 17:25:00 Test Item Value Reference Range Comments POC-GLUCOSE METER (BEAKER) 105 mg/dL 70-110 TESTED AT [facility] [address] (test sdhi=9911) [facility] [address] HEMOGLOBIN AND [id number] 14:25:00 Test Item Value Reference Range Comments HEMOGLOBIN (BEAKER) (test rinf=023) 8.9 GM/DL 11.2-15.7 HEMATOCRIT (BEAKER) (test fvcq=886) 28.5 % 34.1-44.9 Contact hospitalist if Hgb <7.0RAD, ABDOMEN/KUB, 1 VIEW [id number] 14:09: 00Reason for exam:->abd distentionFINAL REPORT Abdomen , one view CLINICAL INDICATION: Abdominal distention COMPARISON: 12/10/2018 IMPRESSION:Dilated small bowel loops are again noted throughout the abdomen, similar to prior. There is also gaseous distention of the ascending and transverse colon. No gas is noted in the sigmoid colon or rectum. Overall, the bowel gas pattern is unchanged. Signed: Alex Jenkins Verified Date/ Time: 12/12/2018 14:09:05 Reading Location: [address] Consult Reading Room RAD, CHEST, 1 VIEW, NON [id number] 14:06:00Reason for exam:->hypoxiaShould this be performed at the bedside?->YesFINAL REPORT Chest, portable AP view History: Hypoxia Comparison: 12/07/2018 IMPRESSION: The heart is stable in size. There are low lung volumes. Bibasilar atelectasis is present. There is a small right pleural effusion. There is no pneumothorax. Left upper extremity PICC tip terminates in the right atrium. Signed: Alex Jenkins Verified Date/Time: 12/12/2018 14:06:55 Reading Location: [facility] C0[facility] Consult Reading Room POCT-GLUCOSE [id number] 12:31:00 Test Item Value Reference Range Comments POC-GLUCOSE METER (BEAKER) 194 mg/dL 70-110 TESTED AT [facility] [address] [facility] (test kdni=5526) [facility] [address] POCT-GLUCOSE [id number] 07:44:00 Test Item Value Reference Range Comments POC-GLUCOSE METER (BEAKER) 116 mg/dL 70-110 TESTED AT [facility] [address] [facility] (test wpmi=9679) [facility] [address] [id number] 06:16:00 Test Item Value Reference Range Comments PHOSPHORUS (BEAKER) (test gtjv=070) 2.8 mg/dL 2.3-4.7 [id number] 06:16:00 Test Item Value Reference Range Comments MAGNESIUM (BEAKER) (test qmuh=386) 1.9 mg/dL 1.6-2.6 BASIC METABOLIC [id number] 06:16:00 Test Item Value Reference Range Comments SODIUM (BEAKER) (test 140 meq/L 136-145 xntg=175) POTASSIUM (BEAKER) (test 3.8 meq/L 3.5-5.1 tdlm=775) CHLORIDE (BEAKER) (test 106 meq/L 98-107 sgaq=175) CO2 (BEAKER) (test 29 meq/L 22-29 ryqt=461) BLOOD UREA NITROGEN 16 mg/dL 7-21 (BEAKER) (test dfwy=385) CREATININE (BEAKER) (test 0.73 mg/dL 0.57-1.25 pvdk=486) GLUCOSE RANDOM (BEAKER) 101 mg/dL 70-105 (test rjsn=529) CALCIUM (BEAKER) (test 8.8 mg/dL 8.4-10.2 ggep=796) EGFR (BEAKER) (test 81 mL/min/1.73 sq m ESTIMATED GFR IS NOT qxgy=6850) ACCURATE CREATININE CLEARANCE IN PREDICTING GLOMERULAR FILTRATION RATE. ESTIMATED GFR IS NOT APPLICABLE FOR DIALYSIS PATIENTS. Specimen slightly ictericHEPATIC FUNCTION [id number] 06:16:00 Test Item Value Reference Range Comments TOTAL PROTEIN (BEAKER) (test ivkp=942) 5.5 gm/dL 6.0-8.3 ALBUMIN (BEAKER) (test wuvx=7340) 3.6 g/dL 3.5-5.0 BILIRUBIN TOTAL (BEAKER) (test fimi=854) 2.1 mg/dL 0.2-1.2 BILIRUBIN DIRECT (BEAKER) (test ctyd=780) 1.0 mg/dL 0.1-0.5 ALKALINE PHOSPHATASE (BEAKER) (test xilf=704) 52 U/L 40-150 AST (SGOT) (BEAKER) (test rxie=918) 39 U/L 5-34 ALT (SGPT) (BEAKER) (test uaty=086) 70 U/L 6-55 Specimen slightly ictericPT/[id number] 05:33:00 Test Item Value Reference Range Comments PROTIME (BEAKER) (test oxng=354) 19.9 seconds 11.9-14.2 INR (BEAKER) (test uaev=520) 1.8 <=5.9 PARTIAL THROMBOPLASTIN TIME (BEAKER) (test 38.2 seconds 22.5-36.0 hfuc=333) Effective 10/24/2018: PT Reference Range ChangeNew: 11.9-14.2 Previous: 11.7- 14.7RECOMMENDED COUMADIN/WARFARIN INR THERAPY RANGESSTANDARD DOSE: 2.0-3.0 Includes: PROPHYLAXIS for venous thrombosis, systemic embolization; TREATMENT for venous thrombosis and/or pulmonary embolus.HIGH RISK: Target INR is2.5-3.5 for patients wiht mechanical heart valves.CBC W/PLT COUNT & AUTO [id number] 05:21:00 Test Item Value Reference Range Comments WHITE BLOOD CELL COUNT (BEAKER) (test ebfk=493) 8.7 K/ L 3.5-10.5 RED BLOOD CELL COUNT (BEAKER) (test jkaz=139) 2.44 M/ L 3.93-5.22 HEMOGLOBIN (BEAKER) (test tgzj=341) 7.5 GM/DL 11.2-15.7 HEMATOCRIT (BEAKER) (test uduu=665) 24.5 % 34.1-44.9 MEAN CORPUSCULAR VOLUME (BEAKER) (test dooy=006) 100.4 fL 79.4-94.8 MEAN CORPUSCULAR HEMOGLOBIN (BEAKER) (test 30.7 pg 25.6-32.2 dwqf=902) MEAN CORPUSCULAR HEMOGLOBIN CONC (BEAKER) (test 30.6 GM/DL 32.2-35.5 bchj=942) RED CELL DISTRIBUTION WIDTH (BEAKER) (test 21.3 % 11.7-14.4 soot=645) PLATELET COUNT (BEAKER) (test wagg=035) 83 K/CU MM 150-450 MEAN PLATELET VOLUME (BEAKER) (test ggex=144) 11.5 fL 9.4-12.3 NUCLEATED RED BLOOD CELLS (BEAKER) (test 0 /100 WBC 0-0 ctvb=532) NEUTROPHILS RELATIVE PERCENT (BEAKER) (test 52 % edms=500) LYMPHOCYTES RELATIVE PERCENT (BEAKER) (test 27 % axii=775) MONOCYTES RELATIVE PERCENT (BEAKER) (test 16 % xpdh=841) EOSINOPHILS RELATIVE PERCENT (BEAKER) (test 4 % ypgl=439) BASOPHILS RELATIVE PERCENT (BEAKER) (test 1 % zxle=038) NEUTROPHILS ABSOLUTE COUNT (BEAKER) (test 4.49 K/ L 1.56-6.13 mwtc=243) LYMPHOCYTES ABSOLUTE COUNT (BEAKER) (test 2.36 K/ L 1.18-3.74 wxcq=803) MONOCYTES ABSOLUTE COUNT (BEAKER) (test aevr=943) 1.41 K/ L 0.24-0.36 EOSINOPHILS ABSOLUTE COUNT (BEAKER) (test 0.34 K/ L 0.04-0.36 ewmd=696) BASOPHILS ABSOLUTE COUNT (BEAKER) (test ctpc=124) 0.05 K/ L 0.01-0.08 IMMATURE GRANULOCYTES-RELATIVE PERCENT (BEAKER) 1 % 0-1 (test yevi=4042) POCT-GLUCOSE [id number] 00:10:00 Test Item Value Reference Range Comments POC-GLUCOSE METER (BEAKER) 127 mg/dL 70-110 TESTED AT [address] (test ezvt=0817) [facility] [id number] POCT-GLUCOSE [id number] 17:40:00 Test Item Value Reference Range Comments POC-GLUCOSE METER (BEAKER) 165 mg/dL 70-110 TESTED AT [address] (test dwzg=7244) [facility] [id number] POCT-GLUCOSE [id number] 12:35:00 Test Item Value Reference Range Comments POC-GLUCOSE METER (BEAKER) 190 mg/dL 70-110 TESTED AT [address] (test rnog=3473) [facility] [address] POCT-GLUCOSE [id number] 08:29:00 Test Item Value Reference Range Comments POC-GLUCOSE METER (BEAKER) 173 mg/dL 70-110 TESTED AT [facility] [address] [facility] (test khbn=5761) [facility] [address] CBC W/PLT COUNT & AUTO [id number] 05:21:00 Test Item Value Reference Range Comments WHITE BLOOD CELL COUNT (BEAKER) (test pkiv=114) 9.4 K/ L 3.5-10.5 RED BLOOD CELL COUNT (BEAKER) (test xttk=010) 2.86 M/ L 3.93-5.22 HEMOGLOBIN (BEAKER) (test nxrb=684) 8.9 GM/DL 11.2-15.7 HEMATOCRIT (BEAKER) (test vupr=017) 28.9 % 34.1-44.9 MEAN CORPUSCULAR VOLUME (BEAKER) (test hfeu=240) 101.0 fL 79.4-94.8 MEAN CORPUSCULAR HEMOGLOBIN (BEAKER) (test 31.1 pg 25.6-32.2 xkum=626) MEAN CORPUSCULAR HEMOGLOBIN CONC (BEAKER) (test 30.8 GM/DL 32.2-35.5 oayq=675) RED CELL DISTRIBUTION WIDTH (BEAKER) (test 21.9 % 11.7-14.4 enxd=710) PLATELET COUNT (BEAKER) (test ugex=926) 118 K/CU MM 150-450 MEAN PLATELET VOLUME (BEAKER) (test ulqy=024) 11.2 fL 9.4-12.3 NUCLEATED RED BLOOD CELLS (BEAKER) (test 1 /100 WBC 0-0 torg=143) NEUTROPHILS RELATIVE PERCENT (BEAKER) (test 55 % uhtm=937) LYMPHOCYTES RELATIVE PERCENT (BEAKER) (test 24 % yako=413) MONOCYTES RELATIVE PERCENT (BEAKER) (test 16 % treg=117) EOSINOPHILS RELATIVE PERCENT (BEAKER) (test 3 % jnbz=546) BASOPHILS RELATIVE PERCENT (BEAKER) (test 1 % andy=715) NEUTROPHILS ABSOLUTE COUNT (BEAKER) (test 5.22 K/ L 1.56-6.13 xnmr=799) LYMPHOCYTES ABSOLUTE COUNT (BEAKER) (test 2.30 K/ L 1.18-3.74 vmwy=051) MONOCYTES ABSOLUTE COUNT (BEAKER) (test 1.50 K/ L 0.24-0.36 fxgi=742) EOSINOPHILS ABSOLUTE COUNT (BEAKER) (test 0.30 K/ L 0.04-0.36 jyks=368) BASOPHILS ABSOLUTE COUNT (BEAKER) (test 0.07 K/ L 0.01-0.08 sway=837) IMMATURE GRANULOCYTES-RELATIVE PERCENT (BEAKER) 1 % 0-1 (test lwlb=0570) [id number] 05:18:00 Test Item Value Reference Range Comments PHOSPHORUS (BEAKER) (test hlby=794) 2.1 mg/dL 2.3-4.7 [id number] 05:18:00 Test Item Value Reference Range Comments MAGNESIUM (BEAKER) (test ucih=825) 2.2 mg/dL 1.6-2.6 BASIC METABOLIC [id number] 05:18:00 Test Item Value Reference Range Comments SODIUM (BEAKER) (test 143 meq/L 136-145 tktb=118) POTASSIUM (BEAKER) (test 3.8 meq/L 3.5-5.1 wwuu=469) CHLORIDE (BEAKER) (test 110 meq/L 98-107 osfj=345) CO2 (BEAKER) (test 27 meq/L 22-29 zjif=205) BLOOD UREA NITROGEN 19 mg/dL 7-21 (BEAKER) (test sgyw=275) CREATININE (BEAKER) (test 0.75 mg/dL 0.57-1.25 nqsm=765) GLUCOSE RANDOM (BEAKER) 118 mg/dL 70-105 (test hdqg=093) CALCIUM (BEAKER) (test 8.8 mg/dL 8.4-10.2 jqfm=911) EGFR (BEAKER) (test 79 mL/min/1.73 sq m ESTIMATED GFR IS NOT czpe=9342) ACCURATE CREATININE CLEARANCE IN PREDICTING GLOMERULAR FILTRATION RATE. ESTIMATED GFR IS NOT APPLICABLE FOR DIALYSIS PATIENTS. HEPATIC FUNCTION [id number] 05:18:00 Test Item Value Reference Range Comments TOTAL PROTEIN (BEAKER) (test hmus=026) 5.6 gm/dL 6.0-8.3 ALBUMIN (BEAKER) (test dpeg=7767) 3.3 g/dL 3.5-5.0 BILIRUBIN TOTAL (BEAKER) (test tkpu=361) 1.8 mg/dL 0.2-1.2 BILIRUBIN DIRECT (BEAKER) (test sjhv=101) 0.9 mg/dL 0.1-0.5 ALKALINE PHOSPHATASE (BEAKER) (test hftn=630) 69 U/L 40-150 AST (SGOT) (BEAKER) (test rbwr=911) 51 U/L 5-34 ALT (SGPT) (BEAKER) (test ubpa=773) 110 U/L 6-55 [id number] 05:05:00 Test Item Value Reference Range Comments PROTIME (BEAKER) (test oyko=336) 19.4 seconds 11.9-14.2 INR (BEAKER) (test xssy=496) 1.7 <=5.9 PARTIAL THROMBOPLASTIN TIME (BEAKER) (test 35.9 seconds 22.5-36.0 ryoa=144) Effective 10/24/2018: PT Reference Range ChangeNew: 11.9-14.2 Previous: 11.7- 14.7RECOMMENDED COUMADIN/WARFARIN INR THERAPY RANGESSTANDARD DOSE: 2.0-3.0 Includes: PROPHYLAXIS for venous thrombosis, systemic embolization; TREATMENT for venous thrombosis and/or pulmonary embolus.HIGH RISK: Target INR is2.5-3.5 for patients wiht mechanical heart valves.[id number] 05:05:00 Test Item Value Reference Range Comments FIBRINOGEN LEVEL (BEAKER) (test vacq=924) 184 mg/dl 225-434 LACTIC ACID, [id number] 05:02:00 Test Item Value Reference Range Comments LACTATE BLOOD VENOUS (2) (BEAKER) (test 1.8 mmol/L 0.5-2.2 txqk=9511) POCT-GLUCOSE [id number] 22:06:00 Test Item Value Reference Range Comments POC-GLUCOSE METER (BEAKER) 295 mg/dL 70-110 TESTED AT [address] (test hoko=7534) [facility] [address] POCT-GLUCOSE [id number] 18:38:00 Test Item Value Reference Range Comments POC-GLUCOSE METER (BEAKER) 181 mg/dL 70-110 TESTED AT [address] (test vnwd=0264) [facility] [address] BLOOD [id number] 16:53:00 Test Item Value Reference Range Comments CULTURE (BEAKER) From Anaerobic Bottle Only (test fbcl=0273) Coagulase negative Staphylococcus GRAM STAIN RESULT From anaerobic bottle (BEAKER) (test only: gram positive kcth=4371) cocci in clusters POCT-GLUCOSE [id number] 13:01:00 Test Item Value Reference Range Comments POC-GLUCOSE METER (BEAKER) 143 mg/dL 70-110 TESTED AT [facility] [address] (test bkwi=1389) [facility] [address] RAD, ABDOMEN/KUB, 1 VIEW [id number] 08:18:00Reason for exam:->ileusFINAL REPORT INDICATION:Ileus. COMPARISON: December 09. TECHNIQUE: Abdomen radiograph one view. FINDINGS / IMPRESSION:Dilated small bowel loops throughout the abdomen again demonstrated with gas in the right colon and transverse colon. No gas in the left or sigmoid colon. Bowel gas pattern is unchanged. No obvious free intraperitoneal air. Right upper quadrant surgical clips, nasogastric tube, and pain pump again noted. Signed: Gabriel Borja MDReport Verified Date/Time: 12/10/2018 08:18:25 Reading Location: [facility] Diagnostic Imaging Reading Room - [place] [id number] CBC W/PLT COUNT & AUTO [id number] 07:36:00 Test Item Value Reference Range Comments WHITE BLOOD CELL COUNT (BEAKER) (test tzlz=060) 10.7 K/ L 3.5-10.5 RED BLOOD CELL COUNT (BEAKER) (test ixgv=835) 2.84 M/ L 3.93-5.22 HEMOGLOBIN (BEAKER) (test ckbi=341) 8.7 GM/DL 11.2-15.7 HEMATOCRIT (BEAKER) (test dxzr=420) 28.5 % 34.1-44.9 MEAN CORPUSCULAR VOLUME (BEAKER) (test klbc=167) 100.4 fL 79.4-94.8 MEAN CORPUSCULAR HEMOGLOBIN (BEAKER) (test 30.6 pg 25.6-32.2 banc=037) MEAN CORPUSCULAR HEMOGLOBIN CONC (BEAKER) (test 30.5 GM/DL 32.2-35.5 wldu=091) RED CELL DISTRIBUTION WIDTH (BEAKER) (test 22.5 % 11.7-14.4 nvtn=348) PLATELET COUNT (BEAKER) (test vqhq=481) 120 K/CU MM 150-450 MEAN PLATELET VOLUME (BEAKER) (test qhdf=462) 11.5 fL 9.4-12.3 NUCLEATED RED BLOOD CELLS (BEAKER) (test 1 /100 WBC 0-0 wegj=573) (CELLAVISION MANUAL DIFF)2018-12-10 07:36:00 Test Item Value Reference Range Comments NEUTROPHILS - REL (CELLAVISION)(BEAKER) (test 81 % rtet=0178) LYMPHOCYTES - REL (CELLAVISION)(BEAKER) (test 9 % cnyy=8774) MONOCYTES - REL (CELLAVISION)(BEAKER) (test 8 % xbfe=0503) EOSINOPHILS - REL (CELLAVISION)(BEAKER) (test 1 % tfmm=6993) BASOPHILS - REL (CELLAVISION)(BEAKER) (test 1 % bfau=9724) NEUTROPHILS - ABS (CELLAVISION)(BEAKER) (test 8.67 K/ul 1.56-6.13 cbkm=2891) LYMPHOCYTES - ABS (CELLAVISION)(BEAKER) (test 0.96 K/ul 1.18-3.74 iatj=3959) MONOCYTES - ABS (CELLAVISION)(BEAKER) (test 0.86 K/uL 0.24-0.36 qiqc=1255) EOSINOPHILS - ABS (CELLAVISION)(BEAKER) (test 0.11 K/uL 0.04-0.36 hfop=2506) BASOPHILS - ABS (CELLAVISION)(BEAKER) (test 0.11 K/uL 0.01-0.08 xvhx=2233) TOTAL COUNTED (BEAKER) (test iyis=3856) 100 MANUAL NRBC PER 100 CELLS (BEAKER) (test 1 /100 WBC 0-0 fguo=2647) WBC MORPHOLOGY (BEAKER) (test rvkh=006) Normal PLT MORPHOLOGY (BEAKER) (test dqoy=571) Normal POLYCHROMATOPHILLIC RBCS(BEAKER) (test pquh=829) 2+ moderate HYPOCHROMIA (BEAKER) (test devk=785) 1+ few ARTIFACT (CELLAVISION)(BEAKER) (test edes=3355) Present PLATELET CONCENTRATION (CELLAVISION)(BEAKER) Decreased (test zzou=1511) Received comment: User comments: Slide comments:[id number] 05:18:00 Test Item Value Reference Range Comments PHOSPHORUS (BEAKER) (test bjib=501) 2.5 mg/dL 2.3-4.7 [id number] 05:18:00 Test Item Value Reference Range Comments MAGNESIUM (BEAKER) (test ofxv=231) 2.2 mg/dL 1.6-2.6 BASIC METABOLIC [id number] 05:18:00 Test Item Value Reference Range Comments SODIUM (BEAKER) (test 146 meq/L 136-145 lwtq=308) POTASSIUM (BEAKER) (test 3.9 meq/L 3.5-5.1 izjl=170) CHLORIDE (BEAKER) (test 113 meq/L 98-107 mpwh=600) CO2 (BEAKER) (test 26 meq/L 22-29 auid=264) BLOOD UREA NITROGEN 19 mg/dL 7-21 (BEAKER) (test ebhf=378) CREATININE (BEAKER) (test 0.68 mg/dL 0.57-1.25 cnxk=730) GLUCOSE RANDOM (BEAKER) 119 mg/dL 70-105 (test xnng=327) CALCIUM (BEAKER) (test 8.4 mg/dL 8.4-10.2 tsgy=386) EGFR (BEAKER) (test 88 mL/min/1.73 sq m ESTIMATED GFR IS NOT cxtl=8964) ACCURATE CREATININE CLEARANCE IN PREDICTING GLOMERULAR FILTRATION RATE. ESTIMATED GFR IS NOT APPLICABLE FOR DIALYSIS PATIENTS. HEPATIC FUNCTION [id number] 05:18:00 Test Item Value Reference Range Comments TOTAL PROTEIN (BEAKER) (test cphq=358) 5.5 gm/dL 6.0-8.3 ALBUMIN (BEAKER) (test pnsx=8548) 3.3 g/dL 3.5-5.0 BILIRUBIN TOTAL (BEAKER) (test yidi=490) 2.0 mg/dL 0.2-1.2 BILIRUBIN DIRECT (BEAKER) (test sbbv=592) 1.0 mg/dL 0.1-0.5 ALKALINE PHOSPHATASE (BEAKER) (test arzh=378) 65 U/L 40-150 AST (SGOT) (BEAKER) (test yful=612) 52 U/L 5-34 ALT (SGPT) (BEAKER) (test nxzf=726) 136 U/L 6-55 LACTIC ACID, [id number] 05:00:00 Test Item Value Reference Range Comments LACTATE BLOOD VENOUS (2) (BEAKER) (test 2.0 mmol/L 0.5-2.2 gcwj=0202) [id number] 04:39:00 Test Item Value Reference Range Comments FIBRINOGEN LEVEL (BEAKER) (test iscv=487) 221 mg/dl 225-434 [id number] 04:39:00 Test Item Value Reference Range Comments PROTIME (BEAKER) (test idjt=040) 17.5 seconds 11.9-14.2 INR (BEAKER) (test ljyv=042) 1.5 <=5.9 PARTIAL THROMBOPLASTIN TIME (BEAKER) (test 37.8 seconds 22.5-36.0 jkmu=917) Effective 10/24/2018: PT Reference Range ChangeNew: 11.9-14.2 Previous: 11.7- 14.7RECOMMENDED COUMADIN/WARFARIN INR THERAPY RANGESSTANDARD DOSE: 2.0-3.0 Includes: PROPHYLAXIS for venous thrombosis, systemic embolization; TREATMENT for venous thrombosis and/or pulmonary embolus.HIGH RISK: Target INR is2.5-3.5 for patients wiht mechanical heart valves.U/S, ABDOMINAL, [id number] 01: 07:00Reason for exam:->ASCITES EVAL Should this be performed at the bedside?- >YesFINAL REPORT Exam: Limited abdominal ultrasound. Clinical History: ASCITES EVAL . Comparison: No prior study for direct comparison. Findings: Limited abdominal ultrasound was performed evaluating all four abdominal quadrants to evaluate for ascites. There is small ascites in the right upper quadrant. Impression: Small right upper quadrant ascites. Signed: Flor Willis Verified Date/Time: 12/10/2018 01:07:16 Electronically signed by: FLOR WILLIS MD on12/10/2018 01:07 AMPOCT- GLUCOSE [id number] 00:25:00 Test Item Value Reference Range Comments POC-GLUCOSE METER (BEAKER) 134 mg/dL 70-110 TESTED AT [address] (test kjmp=9116) [place] [address] BLOOD [id number] 20:01:00 Test Item Value Reference Range Comments CULTURE (BEAKER) (test vukt=7794) No growth in 5 days HEMOGLOBIN AND [id number] 17:57:00 Test Item Value Reference Range Comments HEMOGLOBIN (BEAKER) (test sdek=468) 8.8 GM/DL 11.2-15.7 HEMATOCRIT (BEAKER) (test hkwk=456) 28.2 % 34.1-44.9 POCT-GLUCOSE [id number] 17:57:00 Test Item Value Reference Range Comments POC-GLUCOSE METER (BEAKER) 175 mg/dL 70-110 TESTED AT [address] (test ises=3295) [place] [address] POCT-GLUCOSE [id number] 13:23:00 Test Item Value Reference Range Comments POC-GLUCOSE METER (BEAKER) 110 mg/dL 70-110 TESTED AT [address] (test zaww=3601) [place] [address] CBC W/PLT COUNT & AUTO [id number] 09:54:00 Test Item Value Reference Range Comments WHITE BLOOD CELL COUNT (BEAKER) (test ggsk=313) 9.9 K/ L 3.5-10.5 RED BLOOD CELL COUNT (BEAKER) (test zgch=274) 2.64 M/ L 3.93-5.22 HEMOGLOBIN (BEAKER) (test fcge=012) 8.3 GM/DL 11.2-15.7 HEMATOCRIT (BEAKER) (test lqqi=222) 26.2 % 34.1-44.9 MEAN CORPUSCULAR VOLUME (BEAKER) (test wmuo=102) 99.2 fL 79.4-94.8 MEAN CORPUSCULAR HEMOGLOBIN (BEAKER) (test 31.4 pg 25.6-32.2 tclg=783) MEAN CORPUSCULAR HEMOGLOBIN CONC (BEAKER) (test 31.7 GM/DL 32.2-35.5 viwj=054) RED CELL DISTRIBUTION WIDTH (BEAKER) (test 22.9 % 11.7-14.4 uori=964) PLATELET COUNT (BEAKER) (test slwz=888) 118 K/CU MM 150-450 MEAN PLATELET VOLUME (BEAKER) (test ceff=600) 11.5 fL 9.4-12.3 NUCLEATED RED BLOOD CELLS (BEAKER) (test 1 /100 WBC 0-0 szkp=001) (CELLAVISION MANUAL DIFF)2018-12-09 09:54:00 Test Item Value Reference Range Comments NEUTROPHILS - REL (CELLAVISION)(BEAKER) (test 76 % bqfi=6366) LYMPHOCYTES - REL (CELLAVISION)(BEAKER) (test 11 % sscu=0770) MONOCYTES - REL (CELLAVISION)(BEAKER) (test 10 % ftsi=9041) EOSINOPHILS - REL (CELLAVISION)(BEAKER) (test 2 % jjjv=9678) BASOPHILS - REL (CELLAVISION)(BEAKER) (test 1 % okub=4494) NEUTROPHILS - ABS (CELLAVISION)(BEAKER) (test 7.52 K/ul 1.56-6.13 uthd=4012) LYMPHOCYTES - ABS (CELLAVISION)(BEAKER) (test 1.09 K/ul 1.18-3.74 rnqk=9491) MONOCYTES - ABS (CELLAVISION)(BEAKER) (test 0.99 K/uL 0.24-0.36 oivu=0449) EOSINOPHILS - ABS (CELLAVISION)(BEAKER) (test 0.20 K/uL 0.04-0.36 zmnu=1195) BASOPHILS - ABS (CELLAVISION)(BEAKER) (test 0.10 K/uL 0.01-0.08 zjar=2062) TOTAL COUNTED (BEAKER) (test qtjg=1917) 100 MANUAL NRBC PER 100 CELLS (BEAKER) (test 1 /100 WBC 0-0 lrxw=0542) WBC MORPHOLOGY (BEAKER) (test eooz=337) Normal PLT MORPHOLOGY (BEAKER) (test airn=115) Normal POLYCHROMATOPHILLIC RBCS(BEAKER) (test icap=467) 1+ few ANISOCYTOSIS (BEAKER) (test txah=833) 1+ few MACROCYTES (BEAKER) (test hkbp=204) 1+ few POIKILOCYTES (BEAKER) (test bano=304) 2+ moderate ARTIFACT (CELLAVISION)(BEAKER) (test kybf=3258) Present PLATELET CONCENTRATION (CELLAVISION)(BEAKER) Decreased (test dibx=5733) Received comment: User comments: Slide comments:RAD, ABDOMEN/KUB, 1 VIEW [id number] 07:43:00Reason for exam:->ileusFINAL REPORT ONE VIEW ABDOMEN HISTORY: Adynamic ileus COMPARISON: 12/08/2018 FINDINGS: Single supine AP image of the abdomen was obtained. There are multiple mildly dilated loops of large and small intestine consistent with the clinical history of adynamic ileus. Overall gaseous distention is without appreciable change. No obvious free air is seen on these supine images. Nasogastric tube tip is in the region of the stomach. There are surgical clips in the right abdomen. Signed: Macey Phipps MDReport Verified Date/Time: 12/09/2018 07:43:19 Reading Location : [address] Reading Room POCT-GLUCOSE [id number] 05:30:00 Test Item Value Reference Range Comments POC-GLUCOSE METER (BEAKER) 112 mg/dL 70-110 TESTED AT [facility] [address] [facility] (test wggf=9873) [facility] [address] [id number] 05:09:00 Test Item Value Reference Range Comments MAGNESIUM (BEAKER) (test 2.1 mg/dL 1.6-2.6 Specimen slightly hemolyzed aczo=133) [id number] 05:09:00 Test Item Value Reference Range Comments PHOSPHORUS (BEAKER) (test 2.2 mg/dL 2.3-4.7 Specimen slightly hemolyzed ixdq=546) BASIC METABOLIC [id number] 05:09:00 Test Item Value Reference Range Comments SODIUM (BEAKER) (test 140 meq/L 136-145 vtpg=009) POTASSIUM (BEAKER) (test 4.1 meq/L 3.5-5.1 Specimen slightly mbcp=408) hemolyzed CHLORIDE (BEAKER) (test 108 meq/L 98-107 eyux=740) CO2 (BEAKER) (test 24 meq/L 22-29 bryv=246) BLOOD UREA NITROGEN 18 mg/dL 7-21 (BEAKER) (test zzep=972) CREATININE (BEAKER) (test 0.65 mg/dL 0.57-1.25 Specimen slightly kdcs=298) hemolyzed GLUCOSE RANDOM (BEAKER) 124 mg/dL 70-105 (test yrxe=380) CALCIUM (BEAKER) (test 8.1 mg/dL 8.4-10.2 ttea=207) EGFR (BEAKER) (test 93 mL/min/1.73 sq m ESTIMATED GFR IS NOT uoku=8665) ACCURATE CREATININE CLEARANCE IN PREDICTING GLOMERULAR FILTRATION RATE. ESTIMATED GFR IS NOT APPLICABLE FOR DIALYSIS PATIENTS. Specimen slightly ictericHEPATIC FUNCTION [id number] 05:09:00 Test Item Value Reference Range Comments TOTAL PROTEIN (BEAKER) (test 5.4 gm/dL 6.0-8.3 Specimen slightly hemolyzed afid=842) ALBUMIN (BEAKER) (test 3.2 g/dL 3.5-5.0 Specimen slightly hemolyzed rmgk=7900) BILIRUBIN TOTAL (BEAKER) (test 2.2 mg/dL 0.2-1.2 Specimen slightly hemolyzed oeii=825) BILIRUBIN DIRECT (BEAKER) (test 0.9 mg/dL 0.1-0.5 Specimen slightly hemolyzed cdrc=986) ALKALINE PHOSPHATASE (BEAKER) 63 U/L 40-150 (test dwii=248) AST (SGOT) (BEAKER) (test 70 U/L 5-34 Specimen slightly hemolyzed ntyh=056) ALT (SGPT) (BEAKER) (test 169 U/L 6-55 Specimen slightly hemolyzed yijk=587) Specimen slightly ictericLACTIC ACID, [id number] 04:54:00 Test Item Value Reference Range Comments LACTATE BLOOD VENOUS (2) (BEAKER) (test 1.3 mmol/L 0.5-2.2 jogp=7449) Specimen slightly ictericPT/[id number] 04:45:00 Test Item Value Reference Range Comments PROTIME (BEAKER) (test pwhz=009) 16.8 seconds 11.9-14.2 INR (BEAKER) (test isip=085) 1.4 <=5.9 PARTIAL THROMBOPLASTIN TIME (BEAKER) (test 29.5 seconds 22.5-36.0 bqkg=613) Effective 10/24/2018: PT Reference Range ChangeNew: 11.9-14.2 Previous: 11.7- 14.7RECOMMENDED COUMADIN/WARFARIN INR THERAPY RANGESSTANDARD DOSE: 2.0-3.0 Includes: PROPHYLAXIS for venous thrombosis, systemic embolization; TREATMENT for venous thrombosis and/or pulmonary embolus.HIGH RISK: Target INR is2.5-3.5 for patients wiht mechanical heart valves.[id number] 04:45:00 Test Item Value Reference Range Comments FIBRINOGEN LEVEL (BEAKER) (test vvna=706) 212 mg/dl 225-434 POCT-GLUCOSE [id number] 23:51:00 Test Item Value Reference Range Comments POC-GLUCOSE METER (BEAKER) 127 mg/dL 70-110 TESTED AT [facility] [address] [facility] (test udhw=0527) [facility] [address] [id number] 18:46:00 Test Item Value Reference Range Comments PHOSPHORUS (BEAKER) (test tzhf=031) 2.8 mg/dL 2.3-4.7 [id number] 18:46:00 Test Item Value Reference Range Comments MAGNESIUM (BEAKER) (test foji=955) 2.3 mg/dL 1.6-2.6 BASIC METABOLIC [id number] 18:46:00 Test Item Value Reference Range Comments SODIUM (BEAKER) (test 139 meq/L 136-145 zepo=817) POTASSIUM (BEAKER) (test 4.0 meq/L 3.5-5.1 qulz=185) CHLORIDE (BEAKER) (test 107 meq/L 98-107 igpy=458) CO2 (BEAKER) (test 24 meq/L 22-29 baew=741) BLOOD UREA NITROGEN 19 mg/dL 7-21 (BEAKER) (test vuzh=204) CREATININE (BEAKER) (test 0.68 mg/dL 0.57-1.25 dcph=004) GLUCOSE RANDOM (BEAKER) 114 mg/dL 70-105 (test iklw=040) CALCIUM (BEAKER) (test 8.2 mg/dL 8.4-10.2 xied=280) EGFR (BEAKER) (test 88 mL/min/1.73 sq m ESTIMATED GFR IS NOT njko=2391) ACCURATE CREATININE CLEARANCE IN PREDICTING GLOMERULAR FILTRATION RATE. ESTIMATED GFR IS NOT APPLICABLE FOR DIALYSIS PATIENTS. Specimen slightly ictericPOCT-GLUCOSE [id number] 17:54:00 Test Item Value Reference Range Comments POC-GLUCOSE METER (BEAKER) 93 mg/dL 70-110 TESTED AT [address] (test qftg=4494) [place] [address] LACTIC ACID, [id number] 12:49:00 Test Item Value Reference Range Comments LACTATE BLOOD VENOUS (2) (BEAKER) (test 1.9 mmol/L 0.5-2.2 yjzj=2191) Specimen slightly ictericPOCT-GLUCOSE [id number] 12:09:00 Test Item Value Reference Range Comments POC-GLUCOSE METER (BEAKER) 142 mg/dL 70-110 TESTED AT [address] (test whzl=8637) [place] [address] RAD, ABDOMEN/KUB, 1 VIEW [id number] 08:31:00Reason for exam:->ileusShould this be performed at the bedside?->YesFINAL REPORT Abdomen dated December 08, 2018 COMPARISON: December 07, 2018 Comment:Abdomen was examined in the supine frontal position. Air is seen in the small and large bowel. There is persistent dilatation of the small bowel suggestive of ileus or early small bowel obstruction. No mass, pathological calcification, or free air is present. Impression: Ileus versus early small bowel obstruction. Signed: Daphne Bishop MDReport Verified Date/Time: 12/08/2018 08:31:46 Reading Location: [facility] C013Y CT Body Reading Room [id number] 08:02:00 Test Item Value Reference Range Comments PHOSPHORUS (BEAKER) (test xesl=389) 1.7 mg/dL 2.3-4.7 POCT-GLUCOSE [id number] 05:40:00 Test Item Value Reference Range Comments POC-GLUCOSE METER (BEAKER) 128 mg/dL 70-110 TESTED AT [address] (test jzdi=1176) [place] [address] [id number] 05:14:00 Test Item Value Reference Range Comments MAGNESIUM (BEAKER) (test sizx=004) 2.2 mg/dL 1.6-2.6 BASIC METABOLIC [id number] 05:14:00 Test Item Value Reference Range Comments SODIUM (BEAKER) (test 141 meq/L 136-145 iphs=871) POTASSIUM (BEAKER) (test 4.0 meq/L 3.5-5.1 oqyu=358) CHLORIDE (BEAKER) (test 109 meq/L 98-107 ggag=539) CO2 (BEAKER) (test 25 meq/L 22-29 eiwx=920) BLOOD UREA NITROGEN 21 mg/dL 7-21 (BEAKER) (test jyyo=547) CREATININE (BEAKER) (test 0.66 mg/dL 0.57-1.25 rerx=366) GLUCOSE RANDOM (BEAKER) 118 mg/dL 70-105 (test ifdj=563) CALCIUM (BEAKER) (test 8.3 mg/dL 8.4-10.2 oclc=603) EGFR (BEAKER) (test 91 mL/min/1.73 sq m ESTIMATED GFR IS NOT pkbq=0124) ACCURATE CREATININE CLEARANCE IN PREDICTING GLOMERULAR FILTRATION RATE. ESTIMATED GFR IS NOT APPLICABLE FOR DIALYSIS PATIENTS. Specimen slightly ictericHEPATIC FUNCTION [id number] 05:14:00 Test Item Value Reference Range Comments TOTAL PROTEIN (BEAKER) (test acue=734) 5.4 gm/dL 6.0-8.3 ALBUMIN (BEAKER) (test isnk=9647) 3.4 g/dL 3.5-5.0 BILIRUBIN TOTAL (BEAKER) (test uslf=300) 2.4 mg/dL 0.2-1.2 BILIRUBIN DIRECT (BEAKER) (test ovgh=921) 1.0 mg/dL 0.1-0.5 ALKALINE PHOSPHATASE (BEAKER) (test fdrr=647) 65 U/L 40-150 AST (SGOT) (BEAKER) (test pdxi=444) 94 U/L 5-34 ALT (SGPT) (BEAKER) (test pudy=798) 229 U/L 6-55 Specimen slightly [id number] 05:09:00 Test Item Value Reference Range Comments FIBRINOGEN LEVEL (BEAKER) (test rzmf=629) 223 mg/dl 225-434 [id number] 05:09:00 Test Item Value Reference Range Comments PROTIME (BEAKER) (test yfum=277) 16.4 seconds 11.9-14.2 INR (BEAKER) (test uyaf=754) 1.4 <=5.9 PARTIAL THROMBOPLASTIN TIME (BEAKER) (test 32.1 seconds 22.5-36.0 atzz=119) Effective 10/24/2018: PT Reference Range ChangeNew: 11.9-14.2 Previous: 11.7- 14.7RECOMMENDED COUMADIN/WARFARIN INR THERAPY RANGESSTANDARD DOSE: 2.0-3.0 Includes: PROPHYLAXIS for venous thrombosis, systemic embolization; TREATMENT for venous thrombosis and/or pulmonary embolus.HIGH RISK: Target INR is2.5-3.5 for patients wiht mechanical heart valves.CBC W/PLT COUNT & AUTO [id number] 04:41:00 Test Item Value Reference Range Comments WHITE BLOOD CELL COUNT (BEAKER) (test dzxz=037) 10.2 K/ L 3.5-10.5 RED BLOOD CELL COUNT (BEAKER) (test xzfy=840) 2.63 M/ L 3.93-5.22 HEMOGLOBIN (BEAKER) (test pxwo=971) 8.3 GM/DL 11.2-15.7 HEMATOCRIT (BEAKER) (test hhan=962) 26.1 % 34.1-44.9 MEAN CORPUSCULAR VOLUME (BEAKER) (test hzwi=972) 99.2 fL 79.4-94.8 MEAN CORPUSCULAR HEMOGLOBIN (BEAKER) (test 31.6 pg 25.6-32.2 heik=256) MEAN CORPUSCULAR HEMOGLOBIN CONC (BEAKER) (test 31.8 GM/DL 32.2-35.5 ygcb=594) RED CELL DISTRIBUTION WIDTH (BEAKER) (test 23.0 % 11.7-14.4 vppj=263) PLATELET COUNT (BEAKER) (test gcem=602) 106 K/CU MM 150-450 MEAN PLATELET VOLUME (BEAKER) (test uovq=050) 11.6 fL 9.4-12.3 NUCLEATED RED BLOOD CELLS (BEAKER) (test 2 /100 WBC 0-0 onvs=134) NEUTROPHILS RELATIVE PERCENT (BEAKER) (test 53 % lksi=563) LYMPHOCYTES RELATIVE PERCENT (BEAKER) (test 26 % spub=130) MONOCYTES RELATIVE PERCENT (BEAKER) (test 17 % jzxs=896) EOSINOPHILS RELATIVE PERCENT (BEAKER) (test 2 % mflf=251) BASOPHILS RELATIVE PERCENT (BEAKER) (test 0 % aoql=072) NEUTROPHILS ABSOLUTE COUNT (BEAKER) (test 5.44 K/ L 1.56-6.13 tzge=933) LYMPHOCYTES ABSOLUTE COUNT (BEAKER) (test 2.68 K/ L 1.18-3.74 qpbl=111) MONOCYTES ABSOLUTE COUNT (BEAKER) (test 1.78 K/ L 0.24-0.36 zwkp=886) EOSINOPHILS ABSOLUTE COUNT (BEAKER) (test 0.21 K/ L 0.04-0.36 ujxb=806) BASOPHILS ABSOLUTE COUNT (BEAKER) (test 0.03 K/ L 0.01-0.08 wdnk=745) IMMATURE GRANULOCYTES-RELATIVE PERCENT (BEAKER) 1 % 0-1 (test qazf=5120) HEMOGLOBIN AND [id number] 04:38:00 Test Item Value Reference Range Comments HEMOGLOBIN (BEAKER) (test yxuz=209) 8.3 GM/DL 11.2-15.7 HEMATOCRIT (BEAKER) (test wgai=869) 26.1 % 34.1-44.9 POCT-GLUCOSE [id number] 00:02:00 Test Item Value Reference Range Comments POC-GLUCOSE METER (BEAKER) 125 mg/dL 70-110 [facility] [facility] [address] [place] [address] (test nqwu=9857) [facility] [address] [id number] 23:12:00 Test Item Value Reference Range Comments POTASSIUM (BEAKER) (test vcof=667) 5.1 meq/L 3.5-5.1 [id number] 23:12:00 Test Item Value Reference Range Comments MAGNESIUM (BEAKER) (test dbbp=811) 2.3 mg/dL 1.6-2.6 HEMOGLOBIN AND [id number] 22:46:00 Test Item Value Reference Range Comments HEMOGLOBIN (BEAKER) (test dekb=033) 7.8 GM/DL 11.2-15.7 HEMATOCRIT (BEAKER) (test xwqv=742) 23.9 % 34.1-44.9 BLOOD CULTURE IDENTIFICATION [id number] 20:39:00 Test Item Value Reference Range Comments LISTERIA MONOCYTOGENES (test Not detected Not detected gvlm=[id number]) STAPHYLOCOCCUS (test Detected Not detected Coagulase negative Staph oivv=2208066) species (CoNS)- methicillin susceptibleFirst-line therapy: Cefazolin or Oxacillin (Oxacillin preferred if FOIL SPINNER involvement) MecA NOT DETECTEDPossible contamination. The likelihood of pathogenicity is increased if the organism is observed in multiple blood cultures obtained from separate venipunctures.Reference Range: Not Detected STAPHYLOCOCCUS AUREUS (test Not detected Not detected yegn=4430839) STREPTOCOCCUS (test Not detected Not detected ryja=1153107) STREPTOCOCCUS AGALACTIAE Not detected Not detected (GROUP B) (test cdyw=3085459) STREPTOCOCCUS PNEUMONIAE Not detected Not detected (test siwf=8402084) STREPTOCOCCUS PYOGENES (GROUP Not detected Not detected A) (test zatz=8343461) ACINETOBACTER BAUMANNII (test Not detected Not detected bzia=5450927) HAEMOPHILUS INFLUENZAE (test Not detected Not detected cirx=5045637) NEISSERIA MENINGITIDIS (test Not detected Not detected vpas=8709711) ENTEROBACTERIACEAE (test Not detected Not detected gkrj=1413711) ENTEROBACTER CLOACOE COMPLEX Not detected Not detected (test epva=4491512) KLEBSIELLA OXYTOCA (test Not detected Not detected oqxl=6542523) KLEBSIELLA PNEUMONIAE (test Not detected Not detected uehb=5588) PROTEUS (test jvlh=6945853) Not detected Not detected SERRATIA MARCESCENS (test Not detected Not detected vfxi=0407145) LINDA ALBICANS (test Not detected Not detected kydl=0540581) LINDA GLABRATA (test Not detected Not detected uryw=9500960) LINDA KRUSEI (test Not detected Not detected wpmc=8709410) LINDA PARAPSILOSIS (test Not detected Not detected urku=3815871) LINDA TROPICALIS (test Not detected Not detected tksb=4913383) ESCHERICHIA COLI (test Not detected Not detected nbbs=0694558) METHICILLIN-RESISTANCE GENE Not detected Not detected (test repn=6627061) VANCOMYCIN-RESISTANCE GENE Not detected (test gqmw=6028034) CARBAPENEM-RESISTANCE GENE Not detected (test mtul=7421327) ENTEROCOCCUS-BEAKER (test Not detected Not detected dcxr=1321037) PSEUDOMONAS AERUGINOSA-BEAKER Not detected Not detected (test ijgj=9920758) Other bacteria and resistance markers not targeted by this PCR panel cannot be excluded; therefore clinical correlation and follow up of serology, culture results, and other molecular studies is required. The results are not intended to be used as the sole means for clinical diagnosis or patient management decisions. This sample was tested at the [facility] Molecular Diagnostics Laboratory using the [employer] FilmArray Blood Culture ID Panel. It is FDA cleared and has been verified and approved by the [facility] Molecular [facility]ostics Laboratory for clinical use. This laboratory is CLIA-certified and College ofAmerican Pathologists (CAP)-accredited to perform high complexity testing.POCT-GLUCOSE [id number] 18:12:00 Test Item Value Reference Range Comments POC-GLUCOSE METER (BEAKER) 146 mg/dL 70-110 TESTED AT [facility] [address] (test zgna=4676) [facility] [address] LACTIC ACID, [id number] 15:57:00 Test Item Value Reference Range Comments LACTATE BLOOD VENOUS (2) (BEAKER) (test 2.2 mmol/L 0.5-2.2 cbkv=5826) Specimen slightly ictericHEMOGLOBIN AND [id number] 15:42:00 Test Item Value Reference Range Comments HEMOGLOBIN (BEAKER) (test gkqa=853) 8.3 GM/DL 11.2-15.7 HEMATOCRIT (BEAKER) (test oaek=721) 25.0 % 34.1-44.9 RAD, ABDOMEN/KUB, 1 VIEW [id number] 15:11:00Reason for exam:->suspected ileusShould this be performed at the bedside?->YesFINAL REPORT Technique: Supine views of the abdomen dated 12/07/2018. HISTORY: Suspected ileus. COMPARISON: Abdominal radiograph performed earlier the same day IMPRESSION:There has been no change in the appearance of the dilated loops of small bowel throughout the abdomen. Air isalso seen in the ascending colon. Small bowel measures up to approximately 5.4 cm. No free intraperitoneal air. No abnormal soft tissue mass. Bones are osteopenic. Signed: Julia Sterneport Verified Date/Time: 12/07/2018 15:11:34 Reading Location: [facility] Reading Room Electronically signed by: JULIA STERN MD on 2018 03:11 [id number] 12:18:00 Test Item Value Reference Range Comments PROCALCITONIN (BEAKER) (test clem=5711) 0.09 ng/mL <0.05 SEPSIS RISK (ng/mL)Low: 0.05-0.50Intermediate: 0.51-2.00High: & gt;=2.01POCT-GLUCOSE [id number] 12:08:00 Test Item Value Reference Range Comments POC-GLUCOSE METER (BEAKER) 128 mg/dL 70-110 TESTED AT [address] (test yudh=8886) [place] [id number] LACTIC ACID, [id number] 11:54:00 Test Item Value Reference Range Comments LACTATE BLOOD VENOUS (2) (BEAKER) (test 1.7 mmol/L 0.5-2.2 heyg=2420) POCT-GLUCOSE [id number] 09:43:00 Test Item Value Reference Range Comments POC-GLUCOSE METER (BEAKER) 142 mg/dL 70-110 TESTED AT [address] (test dgkt=2127) [place] [id number] POCT-GLUCOSE [id number] 09:41:00 Test Item Value Reference Range Comments POC-GLUCOSE METER (BEAKER) 147 mg/dL 70-110 TESTED AT [address] (test dwsn=9103) [place] [address] POCT-GLUCOSE [id number] 09:38:00 Test Item Value Reference Range Comments POC-GLUCOSE METER (BEAKER) 149 mg/dL 70-110 TESTED AT [address] (test rafi=2233) [place] [id number] POCT-GLUCOSE [id number] 09:38:00 Test Item Value Reference Range Comments POC-GLUCOSE METER (BEAKER) 147 mg/dL 70-110 TESTED AT [address] (test afoc=7087) [place] [id number] VANCOMYCIN LEVEL, [id number] 09:37:00 Test Item Value Reference Range Comments VANCOMYCIN TROUGH (BEAKER) (test mzjj=364) 10.5 ug/mL 10.0-20.0 POCT-GLUCOSE [id number] 09:35:00 Test Item Value Reference Range Comments POC-GLUCOSE METER (BEAKER) 161 mg/dL 70-110 TESTED AT [address] (test iwyf=5450) [place] [id number] HEMOGLOBIN AND [id number] 09:18:00 Test Item Value Reference Range Comments HEMOGLOBIN (BEAKER) (test ohzj=847) 9.3 GM/DL 11.2-15.7 HEMATOCRIT (BEAKER) (test smlb=401) 28.0 % 34.1-44.9 RAD, CHEST, 1 VIEW, NON [id number] 09:12:00Reason for exam:->Picc line placementShould this be performed at the bedside?->YesFINAL REPORT TECHNIQUE: Frontal chest radiographs dated 12/07/2018. CLINICAL HISTORY: PICC placement COMPARISON STUDY: Chest radiograph dated 12/06/2018 IMPRESSION:Left-sided PICCis seen with the tip projected over the right atrium. There is bibasilar atelectasis/scarring, unchanged. No pleural effusion or pneumothorax. Cardiomediastinal silhouette is normal in size. No pulmonary edema. Bones are osteopenic. Signed: Julia Sterneport Verified Date/ Time: 12/07/2018 09:12:03 Reading Location: [facility] Reading Room RAD , ABDOMEN/KUB, 1 VIEW [id number] 04:39:00Reason for exam:->Concern for SBO vs Ileus - assess contrast movement through GI tractFINAL REPORT EXAMINATION: Supine abdomen CLINICAL INDICATION: Abdominal distention IMPRESSION: Compared to 12/06/2018 Unusual gaseous distention of the stomach, small bowel and right colon is again noted and may reflect an ileus. Mechanical obstruction would also be included in differential diagnosis. Evaluation for free air below the diaphragm and air-fluid levels is limited by supine patient positioning. Evaluation for migration of the oral contrast is also limited, likely reflecting dilution of the contrast within the dilated fluid-filled loops of small bowel. Hazy increased attenuation is again noted within the lower abdomen and pelvis compatible with previously identified ascites. If there is clinical concern for mechanical obstruction, consider short-term repeat CT imaging to assess migration of the previously administered oral contrast. Signed: Sheng Goldman MDReportVerified Date/Time: 12/07/2018 04:39:54 Reading Location: [address] Reading Room [id number] 04:12:00 Test Item Value Reference Range Comments PHOSPHORUS (BEAKER) (test fibc=122) 3.5 mg/dL 2.3-4.7 [id number] 04:12:00 Test Item Value Reference Range Comments MAGNESIUM (BEAKER) (test zudy=100) 1.8 mg/dL 1.6-2.6 BASIC METABOLIC [id number] 04:12:00 Test Item Value Reference Range Comments SODIUM (BEAKER) (test 141 meq/L 136-145 qvef=471) POTASSIUM (BEAKER) (test 3.5 meq/L 3.5-5.1 tsrr=183) CHLORIDE (BEAKER) (test 109 meq/L 98-107 koie=278) CO2 (BEAKER) (test 21 meq/L 22-29 gqyl=553) BLOOD UREA NITROGEN 27 mg/dL 7-21 (BEAKER) (test ufbf=958) CREATININE (BEAKER) (test 0.77 mg/dL 0.57-1.25 hpfe=192) GLUCOSE RANDOM (BEAKER) 144 mg/dL 70-105 (test qali=505) CALCIUM (BEAKER) (test 8.6 mg/dL 8.4-10.2 uwhz=728) EGFR (BEAKER) (test 76 mL/min/1.73 sq m ESTIMATED GFR IS NOT zild=4456) ACCURATE CREATININE CLEARANCE IN PREDICTING GLOMERULAR FILTRATION RATE. ESTIMATED GFR IS NOT APPLICABLE FOR DIALYSIS PATIENTS. Specimen slightly ictericHEPATIC FUNCTION [id number] 04:12:00 Test Item Value Reference Range Comments TOTAL PROTEIN (BEAKER) (test rggt=466) 5.9 gm/dL 6.0-8.3 ALBUMIN (BEAKER) (test qotj=3450) 3.4 g/dL 3.5-5.0 BILIRUBIN TOTAL (BEAKER) (test mjdh=412) 2.3 mg/dL 0.2-1.2 BILIRUBIN DIRECT (BEAKER) (test rndb=271) 1.0 mg/dL 0.1-0.5 ALKALINE PHOSPHATASE (BEAKER) (test tcob=859) 78 U/L 40-150 AST (SGOT) (BEAKER) (test hezp=926) 204 U/L 5-34 ALT (SGPT) (BEAKER) (test yzjb=529) 392 U/L 6-55 Specimen slightly ictericLACTIC ACID, [id number] 03:49:00 Test Item Value Reference Range Comments LACTATE BLOOD VENOUS (2) 2.3 mmol/L 0.5-2.2 Specimen slightly hemolyzed (BEAKER) (test zjhx=3384) Specimen slightly ictericPT/[id number] 03:47:00 Test Item Value Reference Range Comments PROTIME (BEAKER) (test umeg=693) 16.3 seconds 11.9-14.2 INR (BEAKER) (test aovc=248) 1.4 <=5.9 PARTIAL THROMBOPLASTIN TIME (BEAKER) (test 25.9 seconds 22.5-36.0 gnkx=921) Effective 10/24/2018: PT Reference Range ChangeNew: 11.9-14.2 Previous: 11.7- 14.7RECOMMENDED COUMADIN/WARFARIN INR THERAPY RANGESSTANDARD DOSE: 2.0-3.0 Includes: PROPHYLAXIS for venous thrombosis, systemic embolization; TREATMENT for venous thrombosis and/or pulmonary embolus.HIGH RISK: Target INR is2.5-3.5 for patients wiht mechanical heart valves.[id number] 03:47:00 Test Item Value Reference Range Comments FIBRINOGEN LEVEL (BEAKER) (test vpfo=310) 252 mg/dl 225-434 CBC W/PLT COUNT & AUTO [id number] 03:43:00 Test Item Value Reference Range Comments WHITE BLOOD CELL COUNT (BEAKER) (test uftl=817) 14.3 K/ L 3.5-10.5 RED BLOOD CELL COUNT (BEAKER) (test qgic=453) 3.04 M/ L 3.93-5.22 HEMOGLOBIN (BEAKER) (test cftn=761) 9.6 GM/DL 11.2-15.7 HEMATOCRIT (BEAKER) (test vwrm=417) 28.9 % 34.1-44.9 MEAN CORPUSCULAR VOLUME (BEAKER) (test lfbn=657) 95.1 fL 79.4-94.8 MEAN CORPUSCULAR HEMOGLOBIN (BEAKER) (test 31.6 pg 25.6-32.2 ocyc=732) MEAN CORPUSCULAR HEMOGLOBIN CONC (BEAKER) (test 33.2 GM/DL 32.2-35.5 xovz=168) RED CELL DISTRIBUTION WIDTH (BEAKER) (test 22.7 % 11.7-14.4 snnb=035) PLATELET COUNT (BEAKER) (test cebf=834) 133 K/CU MM 150-450 MEAN PLATELET VOLUME (BEAKER) (test htxv=475) 12.0 fL 9.4-12.3 NUCLEATED RED BLOOD CELLS (BEAKER) (test 3 /100 WBC 0-0 ziua=224) NEUTROPHILS RELATIVE PERCENT (BEAKER) (test 67 % vmff=403) LYMPHOCYTES RELATIVE PERCENT (BEAKER) (test 17 % yklk=156) MONOCYTES RELATIVE PERCENT (BEAKER) (test 15 % jofd=972) EOSINOPHILS RELATIVE PERCENT (BEAKER) (test 0 % udhe=932) BASOPHILS RELATIVE PERCENT (BEAKER) (test 0 % jgmb=449) NEUTROPHILS ABSOLUTE COUNT (BEAKER) (test 9.64 K/ L 1.56-6.13 lent=048) LYMPHOCYTES ABSOLUTE COUNT (BEAKER) (test 2.41 K/ L 1.18-3.74 iapk=358) MONOCYTES ABSOLUTE COUNT (BEAKER) (test 2.13 K/ L 0.24-0.36 acoj=067) EOSINOPHILS ABSOLUTE COUNT (BEAKER) (test 0.01 K/ L 0.04-0.36 pqiz=380) BASOPHILS ABSOLUTE COUNT (BEAKER) (test 0.06 K/ L 0.01-0.08 pknl=837) IMMATURE GRANULOCYTES-RELATIVE PERCENT (BEAKER) 1 % 0-1 (test savl=9269) BLOOD GAS, [id number] 00:47:00 Test Item Value Reference Range Comments PH VENOUS (BEAKER) (test mdqj=442) 7.44 7.32-7.42 PCO2 VENOUS (BEAKER) (test yrsr=784) 36 mmHg 41-51 PO2 VENOUS (BEAKER) (test xasw=508) 43 mmHg 25-40 O2 SATURATION VENOUS (BEAKER) (test eflx=151) 81.3 % 40.0-70.0 HCO3 VENOUS (BEAKER) (test bvaq=005) 24 mmol/L 21-29 BASE EXCESS VENOUS (BEAKER) (test oggs=940) -0.2 mmol/L -2.0-3.0 PATIENT TEMPERATURE (BEAKER) (test ibwt=1036) 36.7 C FIO2 (BEAKER) (test xfip=5328) 21.0 % HEMOGLOBIN AND [id number] 00:36:00 Test Item Value Reference Range Comments HEMOGLOBIN (BEAKER) (test indt=518) 9.7 GM/DL 11.2-15.7 HEMATOCRIT (BEAKER) (test jdho=226) 29.0 % 34.1-44.9 CT, [id number] 00:24:00FINAL REPORT EXAM: CT of the abdomen and pelvis, without contrast CLINICAL HISTORY: Bowel obstruction, low-grade TECHNIQUE: CT of the abdomen and pelvis was performed without the intravenous administration of contrast. This exam was performed according to our departmental doseoptimization program which includes automated exposure control, adjustment of the mA and/or kV according to patient's size and/or use of iterative reconstructive technique. COMPARISON: None FINDINGS: Please note study is limited due to lack of intravenous contrast. LOWER CHEST: Small bilateral pleural effusions with associated compressive atelectasis. Mild bibasilar discoid atelectasis and/or linearscarring. Mild superimposed pulmonary interstitial edema cannot be excluded. Calcified bilateral lower lobe granulomas. Small hiatal hernia. Mild diffuse mural thickening of the distal esophagus, nonspecificLIVER: Cirrhotic morphology.BILE DUCTS: Within normal limits.GALL BLADDER: Status post cholecystectomy.PANCREAS: Diffuse parenchymal atrophy.SPLEEN: Within normal limits.ADRENALS: Within normal limits.KIDNEYS/ URETERS: Within normal limits. URINARY BLADDER: Collapsed around a Ramirez catheter balloon. Tiny amount of air in the urinary bladder may be due to Ramirez instrumentation.REPRODUCTIVE ORGANS: Status post hysterectomy. No adnexal mass. BOWEL/MESENTERY: Multiple dilated fluid-filled small bowel loops with air-fluid levels without a definite transition point which may represent an ileus or partial small bowel obstruction. Diffuse mural thickening of the colon most pronounced in the ascendingcolon which may represent a colitis (infectious, inflammatory or ischemic). Nonvisualization of the appendix. PERITONEUM/ RETROPERITONEUM: Small abdominal and small to moderate pelvic ascites. No free air or fluid collection. VESSELS: Atherosclerotic calcifications of the aorta and branches. LYMPH NODES: No abdominal or pelvic lymphadenopathy.BONES AND SOFT TISSUES: Calcified right gluteal granuloma. Mild anasarca. Neurostimulator device in the right anterior abdominal wall. Generalized osteopenia. Thoracic neurostimulator lead terminating at the T11 spinal canal. IMPRESSION: Status post cholecystectomy and hysterectomy. Cirrhosis. Diffuse mural thickening of the colon most pronounced in the ascending colon which may represent a colitis ( infectious, inflammatory or ischemic). Alternative, this may be reactive to ascites. Follow-up colonoscopy after symptoms subsided is recommended to exclude malignancy in the ascending colon. Multiple dilated fluid-filled small bowel loops with air-fluid levels without a definite transition point which may represent an ileus or partial small bowel obstruction. Serial follow-up abdominal radiographs are recommended to ensure passage of oral contrast into thecolon to exclude a complete small bowel obstruction. Small hiatal hernia. Small abdominal and small to moderate pelvic ascites. No free air or fluid collection. Small bilateral pleural effusions. Mild superimposed pulmonary interstitial edema cannot be excluded. Signed: Flor Willis VerifiedDate/Time: 12/07/2018 00:24:22 12:24 AMRAD, ABDOMEN/KUB, 1 VIEW [id number] 18: 47:00Reason for exam:->abdominal distensionShould this be performed at the bedside?->YesFINAL REPORT ONE VIEW ABDOMEN HISTORY: Abdominal distention, bowel obstruction COMPARISON: 12/04/2018 FINDINGS: 2 supine AP images of the abdomen and pelvis were obtained. There isgas in the stomach. There is gas in multiple dilated small bowel loops throughout the abdomen and pelvis. There is questionable gas in the large intestine. These findings may reflect a small bowel obstruction. Adynamic ileus is also a consideration. Overall, the small bowel distention is unchanged or slightly increased. No obvious free air is seen on these supine images. Signed: Macey PhippsortVerified Date/Time: 12/06/2018 18:47:51 Reading Location: [address] Reading Room Electronically signed by: MACEY PHIPPS MD on 12/06 06:47 [id number] 18:17:00 Test Item Value Reference Range Comments PHOSPHORUS (BEAKER) (test 3.0 mg/dL 2.3-4.7 Specimen slightly hemolyzed dtgm=857) BASIC METABOLIC [id number] 18:17:00 Test Item Value Reference Range Comments SODIUM (BEAKER) (test 142 meq/L 136-145 sbge=967) POTASSIUM (BEAKER) (test 3.3 meq/L 3.5-5.1 Specimen slightly upuy=464) hemolyzed CHLORIDE (BEAKER) (test 112 meq/L 98-107 wexf=407) CO2 (BEAKER) (test 20 meq/L 22-29 jdjb=631) BLOOD UREA NITROGEN 25 mg/dL 7-21 (BEAKER) (test rcdi=029) CREATININE (BEAKER) (test 0.73 mg/dL 0.57-1.25 Specimen slightly rtpm=702) hemolyzed GLUCOSE RANDOM (BEAKER) 150 mg/dL 70-105 (test fimb=138) CALCIUM (BEAKER) (test 8.2 mg/dL 8.4-10.2 xcrr=540) EGFR (BEAKER) (test 81 mL/min/1.73 sq m ESTIMATED GFR IS NOT iqvq=7715) ACCURATE CREATININE CLEARANCE IN PREDICTING GLOMERULAR FILTRATION RATE. ESTIMATED GFR IS NOT APPLICABLE FOR DIALYSIS PATIENTS. RAD, CHEST, 1 VIEW, NON [id number] 18:15:00Reason for exam:->shortness of breathShould this be performed at the bedside?->YesFINAL REPORT History: Shortness of breath Comparison: 12/04/2018 Findings: Interval increase in horizontal linear opacities in the lower lungs bilaterally suggestive of subsegmental atelectasis or atypical pneumonitis. No pleural effusions or pneumothorax are identified. Cardiac shadow normal in size. No acute skeletal abnormalities are identified. Signed: Macey Phipps MDReportVerified Date/Time: 12/06/2018 18:15:51 Reading Location: [address] Reading Room Electronically signed by: MACEY PHIPPS MD on 12/06 06:15 PMCBC W/PLT COUNT & AUTO [id number] 18:00:00 Test Item Value Reference Range Comments WHITE BLOOD CELL COUNT (BEAKER) (test fqqx=482) 12.6 K/ L 3.5-10.5 RED BLOOD CELL COUNT (BEAKER) (test zldp=934) 2.95 M/ L 3.93-5.22 HEMOGLOBIN (BEAKER) (test lxle=345) 9.3 GM/DL 11.2-15.7 HEMATOCRIT (BEAKER) (test bnwr=867) 28.1 % 34.1-44.9 MEAN CORPUSCULAR VOLUME (BEAKER) (test ktdk=643) 95.3 fL 79.4-94.8 MEAN CORPUSCULAR HEMOGLOBIN (BEAKER) (test 31.5 pg 25.6-32.2 yzaz=913) MEAN CORPUSCULAR HEMOGLOBIN CONC (BEAKER) (test 33.1 GM/DL 32.2-35.5 tjqf=515) RED CELL DISTRIBUTION WIDTH (BEAKER) (test 23.1 % 11.7-14.4 jkuj=224) PLATELET COUNT (BEAKER) (test jqgb=228) 126 K/CU MM 150-450 MEAN PLATELET VOLUME (BEAKER) (test onrf=721) 11.5 fL 9.4-12.3 NUCLEATED RED BLOOD CELLS (BEAKER) (test 3 /100 WBC 0-0 ydjs=920) (CELLAVISION MANUAL DIFF)2018-12-06 18:00:00 Test Item Value Reference Range Comments NEUTROPHILS - REL (CELLAVISION)(BEAKER) (test 75 % hmpj=9174) LYMPHOCYTES - REL (CELLAVISION)(BEAKER) (test 15 % tkol=3204) MONOCYTES - REL (CELLAVISION)(BEAKER) (test 7 % frab=1332) BASOPHILS - REL (CELLAVISION)(BEAKER) (test 1 % kdfu=7011) BANDS - REL (CELLAVISION)(BEAKER) (test 2 % 0-10 jaqu=7188) NEUTROPHILS - ABS (CELLAVISION)(BEAKER) (test 9.45 K/ul 1.56-6.13 xpkp=3285) LYMPHOCYTES - ABS (CELLAVISION)(BEAKER) (test 1.89 K/ul 1.18-3.74 byjr=0360) MONOCYTES - ABS (CELLAVISION)(BEAKER) (test 0.88 K/uL 0.24-0.36 jqnn=7981) BASOPHILS - ABS (CELLAVISION)(BEAKER) (test 0.13 K/uL 0.01-0.08 rmzy=9977) BANDS - ABS (CELLAVISION)(BEAKER) (test 0.25 K/uL 0.00-0.80 bnde=5450) TOTAL COUNTED (BEAKER) (test oucj=1361) 100 MANUAL NRBC PER 100 CELLS (BEAKER) (test 3 /100 WBC 0-0 yipz=3720) SMUDGE CELLS (BEAKER) (test pavp=9199) Present GIANT PLATELETS (BEAKER) (test vzer=214) Present POLYCHROMATOPHILLIC RBCS(BEAKER) (test yoph=069) 1+ few ANISOCYTOSIS (BEAKER) (test afzs=146) 2+ moderate MICROCYTES (BEAKER) (test kqrd=209) 2+ moderate POIKILOCYTES (BEAKER) (test sglw=990) 1+ few ELLIPTOCYTES (BEAKER) (test gcnm=984) 1+ few ARTIFACT (CELLAVISION)(BEAKER) (test xhwb=6369) Present PLATELET CONCENTRATION (CELLAVISION)(BEAKER) Decreased (test vhat=6118) Received comment: User comments: Slide comments:HEMOGLOBIN AND [id number] 17:32:00 Test Item Value Reference Range Comments HEMOGLOBIN (BEAKER) (test qtaa=358) 9.3 GM/DL 11.2-15.7 HEMATOCRIT (BEAKER) (test chwo=720) 28.1 % 34.1-44.9 ANTI-NUCLEAR ANTIBODY (SATNAM)2018-12-06 10:40:00 Test Item Value Reference Range Comments ANTI-NUCLEAR ANTIBODY (SATNAM) (BEAKER) (test Negative Negative tcdy=727) Test performed by IFA method.Test performed by IFA method.LACTIC ACID, [id number] 09:53:00 Test Item Value Reference Range Comments LACTATE BLOOD VENOUS (2) (BEAKER) (test 1.6 mmol/L 0.5-2.2 yplg=3184) [id number] 09:48:00 Test Item Value Reference Range Comments AMMONIA (BEAKER) (test byae=744) 54 mol/L 18-72 POCT-GLUCOSE [id number] 06:27:00 Test Item Value Reference Range Comments POC-GLUCOSE METER (BEAKER) 181 mg/dL 70-110 TESTED AT [facility] [address] [facility] (test kgxl=0551) [facility] [address] [id number] 04:38:00 Test Item Value Reference Range Comments PHOSPHORUS (BEAKER) (test 1.4 mg/dL 2.3-4.7 Specimen slightly hemolyzed qpey=565) [id number] 04:33:00 Test Item Value Reference Range Comments MAGNESIUM (BEAKER) (test 1.9 mg/dL 1.6-2.6 Specimen slightly hemolyzed myrq=266) BASIC METABOLIC [id number] 04:33:00 Test Item Value Reference Range Comments SODIUM (BEAKER) (test 146 meq/L 136-145 qgts=620) POTASSIUM (BEAKER) (test 3.4 meq/L 3.5-5.1 Specimen slightly ksqk=415) hemolyzed CHLORIDE (BEAKER) (test 116 meq/L 98-107 txja=828) CO2 (BEAKER) (test 21 meq/L 22-29 kykk=256) BLOOD UREA NITROGEN 29 mg/dL 7-21 (BEAKER) (test novy=567) CREATININE (BEAKER) (test 0.73 mg/dL 0.57-1.25 Specimen slightly tupq=301) hemolyzed GLUCOSE RANDOM (BEAKER) 226 mg/dL 70-105 (test ayps=489) CALCIUM (BEAKER) (test 8.0 mg/dL 8.4-10.2 tftr=426) EGFR (BEAKER) (test 81 mL/min/1.73 sq m ESTIMATED GFR IS NOT mnfc=7747) ACCURATE CREATININE CLEARANCE IN PREDICTING GLOMERULAR FILTRATION RATE. ESTIMATED GFR IS NOT APPLICABLE FOR DIALYSIS PATIENTS. HEPATIC FUNCTION [id number] 04:33:00 Test Item Value Reference Range Comments TOTAL PROTEIN (BEAKER) (test 5.2 gm/dL 6.0-8.3 Specimen slightly hemolyzed rhth=775) ALBUMIN (BEAKER) (test 3.0 g/dL 3.5-5.0 Specimen slightly hemolyzed gjjc=0975) BILIRUBIN TOTAL (BEAKER) (test 1.4 mg/dL 0.2-1.2 Specimen slightly hemolyzed vcty=783) BILIRUBIN DIRECT (BEAKER) (test 0.5 mg/dL 0.1-0.5 Specimen slightly hemolyzed ripb=049) ALKALINE PHOSPHATASE (BEAKER) 55 U/L 40-150 (test sqsw=345) AST (SGOT) (BEAKER) (test 282 U/L 5-34 Specimen slightly hemolyzed gaah=872) ALT (SGPT) (BEAKER) (test 443 U/L 6-55 Specimen slightly hemolyzed rfvb=370) CBC W/PLT COUNT & AUTO [id number] 04:30:00 Test Item Value Reference Range Comments WHITE BLOOD CELL COUNT (BEAKER) (test zcro=769) 12.3 K/ L 3.5-10.5 RED BLOOD CELL COUNT (BEAKER) (test iofn=923) 2.78 M/ L 3.93-5.22 HEMOGLOBIN (BEAKER) (test adzc=414) 8.7 GM/DL 11.2-15.7 HEMATOCRIT (BEAKER) (test vwsb=010) 27.3 % 34.1-44.9 MEAN CORPUSCULAR VOLUME (BEAKER) (test udyc=134) 98.2 fL 79.4-94.8 MEAN CORPUSCULAR HEMOGLOBIN (BEAKER) (test 31.3 pg 25.6-32.2 virb=918) MEAN CORPUSCULAR HEMOGLOBIN CONC (BEAKER) (test 31.9 GM/DL 32.2-35.5 hzfv=561) RED CELL DISTRIBUTION WIDTH (BEAKER) (test 22.3 % 11.7-14.4 iqtq=340) PLATELET COUNT (BEAKER) (test sttp=823) 112 K/CU MM 150-450 MEAN PLATELET VOLUME (BEAKER) (test tvzc=402) 11.9 fL 9.4-12.3 NUCLEATED RED BLOOD CELLS (BEAKER) (test 2 /100 WBC 0-0 ygta=371) NEUTROPHILS RELATIVE PERCENT (BEAKER) (test 61 % cddh=066) LYMPHOCYTES RELATIVE PERCENT (BEAKER) (test 24 % majh=073) MONOCYTES RELATIVE PERCENT (BEAKER) (test 12 % evgo=650) EOSINOPHILS RELATIVE PERCENT (BEAKER) (test 2 % ftxz=845) BASOPHILS RELATIVE PERCENT (BEAKER) (test 1 % ziuw=027) NEUTROPHILS ABSOLUTE COUNT (BEAKER) (test 7.52 K/ L 1.56-6.13 jzev=998) LYMPHOCYTES ABSOLUTE COUNT (BEAKER) (test 2.97 K/ L 1.18-3.74 chox=524) MONOCYTES ABSOLUTE COUNT (BEAKER) (test 1.44 K/ L 0.24-0.36 ttrj=967) EOSINOPHILS ABSOLUTE COUNT (BEAKER) (test 0.20 K/ L 0.04-0.36 sbgb=019) BASOPHILS ABSOLUTE COUNT (BEAKER) (test 0.06 K/ L 0.01-0.08 dvzj=105) IMMATURE GRANULOCYTES-RELATIVE PERCENT (BEAKER) 1 % 0-1 (test plmw=9152) [id number] 04:29:00 Test Item Value Reference Range Comments PROTIME (BEAKER) (test lkaa=350) 16.8 seconds 11.9-14.2 INR (BEAKER) (test zqwm=245) 1.4 <=5.9 PARTIAL THROMBOPLASTIN TIME (BEAKER) (test 27.0 seconds 22.5-36.0 hhvu=486) Effective 10/24/2018: PT Reference Range ChangeNew: 11.9-14.2 Previous: 11.7- 14.7RECOMMENDED COUMADIN/WARFARIN INR THERAPY RANGESSTANDARD DOSE: 2.0-3.0 Includes: PROPHYLAXIS for venous thrombosis, systemic embolization; TREATMENT for venous thrombosis and/or pulmonary embolus.HIGH RISK: Target INR is2.5-3.5 for patients wiht mechanical heart valves.[id number] 04:29:00 Test Item Value Reference Range Comments FIBRINOGEN LEVEL (BEAKER) (test wcta=925) 218 mg/dl 225-434 POCT-GLUCOSE [id number] 00:18:00 Test Item Value Reference Range Comments POC-GLUCOSE METER (BEAKER) 153 mg/dL 70-110 TESTED AT [address] (test ubhc=4387) [place] [id number] HEMOGLOBIN AND [id number] 00:17:00 Test Item Value Reference Range Comments HEMOGLOBIN (BEAKER) (test gczk=802) 9.1 GM/DL 11.2-15.7 HEMATOCRIT (BEAKER) (test kuzx=426) 27.7 % 34.1-44.9 POCT-GLUCOSE [id number] 18:00:00 Test Item Value Reference Range Comments POC-GLUCOSE METER (BEAKER) 177 mg/dL 70-110 TESTED AT [address] (test ozfw=4136) [facility] [address] BASIC METABOLIC [id number] 13:48:00 Test Item Value Reference Range Comments SODIUM (BEAKER) (test 148 meq/L 136-145 zujo=026) POTASSIUM (BEAKER) (test 3.4 meq/L 3.5-5.1 heud=380) CHLORIDE (BEAKER) (test 119 meq/L 98-107 wyyi=925) CO2 (BEAKER) (test 25 meq/L 22-29 viet=614) BLOOD UREA NITROGEN 36 mg/dL 7-21 (BEAKER) (test tbjm=445) CREATININE (BEAKER) (test 0.73 mg/dL 0.57-1.25 ngnu=476) GLUCOSE RANDOM (BEAKER) 165 mg/dL 70-105 (test vmbf=715) CALCIUM (BEAKER) (test 7.8 mg/dL 8.4-10.2 ioff=753) EGFR (BEAKER) (test 81 mL/min/1.73 sq m ESTIMATED GFR IS NOT safj=2586) ACCURATE CREATININE CLEARANCE IN PREDICTING GLOMERULAR FILTRATION RATE. ESTIMATED GFR IS NOT APPLICABLE FOR DIALYSIS PATIENTS. [id number] 13:45:00 Test Item Value Reference Range Comments PHOSPHORUS (BEAKER) (test uxwd=130) 2.1 mg/dL 2.3-4.7 HEMOGLOBIN AND [id number] 13:30:00 Test Item Value Reference Range Comments HEMOGLOBIN (BEAKER) (test ufkw=143) 6.9 GM/DL 11.2-15.7 HEMATOCRIT (BEAKER) (test utbl=871) 21.5 % 34.1-44.9 POCT-GLUCOSE [id number] 12:17:00 Test Item Value Reference Range Comments POC-GLUCOSE METER (BEAKER) 179 mg/dL 70-110 TESTED AT [facility] [address] (test osvg=0461) [facility] [address] CBC W/PLT COUNT & AUTO [id number] 10:50:00 Test Item Value Reference Range Comments WHITE BLOOD CELL COUNT (BEAKER) (test rnhp=337) 14.7 K/ L 3.5-10.5 RED BLOOD CELL COUNT (BEAKER) (test ujws=881) 2.30 M/ L 3.93-5.22 HEMOGLOBIN (BEAKER) (test pcpy=583) 7.4 GM/DL 11.2-15.7 HEMATOCRIT (BEAKER) (test ysod=350) 22.5 % 34.1-44.9 MEAN CORPUSCULAR VOLUME (BEAKER) (test azjf=128) 97.8 fL 79.4-94.8 MEAN CORPUSCULAR HEMOGLOBIN (BEAKER) (test 32.2 pg 25.6-32.2 qmom=898) MEAN CORPUSCULAR HEMOGLOBIN CONC (BEAKER) (test 32.9 GM/DL 32.2-35.5 jmon=604) RED CELL DISTRIBUTION WIDTH (BEAKER) (test 22.2 % 11.7-14.4 olwb=658) PLATELET COUNT (BEAKER) (test qehl=780) 120 K/CU MM 150-450 MEAN PLATELET VOLUME (BEAKER) (test eera=896) 11.9 fL 9.4-12.3 NUCLEATED RED BLOOD CELLS (BEAKER) (test 2 /100 WBC 0-0 ydig=827) (CELLAVISION MANUAL DIFF)2018-12-05 10:50:00 Test Item Value Reference Range Comments NEUTROPHILS - REL (CELLAVISION)(BEAKER) (test 77 % ihrq=6035) LYMPHOCYTES - REL (CELLAVISION)(BEAKER) (test 15 % bmki=3103) MONOCYTES - REL (CELLAVISION)(BEAKER) (test 8 % uivn=2995) BANDS - REL (CELLAVISION)(BEAKER) (test 1 % 0-10 xjyf=4348) NEUTROPHILS - ABS (CELLAVISION)(BEAKER) (test 11.32 K/ul 1.56-6.13 yvre=9573) LYMPHOCYTES - ABS (CELLAVISION)(BEAKER) (test 2.21 K/ul 1.18-3.74 nwyp=0029) MONOCYTES - ABS (CELLAVISION)(BEAKER) (test 1.18 K/uL 0.24-0.36 hzgh=5813) BANDS - ABS (CELLAVISION)(BEAKER) (test 0.15 K/uL 0.00-0.80 klud=1135) TOTAL COUNTED (BEAKER) (test pxqg=6015) 100 MANUAL NRBC PER 100 CELLS (BEAKER) (test 3 /100 WBC 0-0 mjay=5074) WBC MORPHOLOGY (BEAKER) (test dvft=462) Normal PLT MORPHOLOGY (BEAKER) (test zjne=744) Normal POLYCHROMATOPHILLIC RBCS(BEAKER) (test armw=177) 1+ few MICROCYTES (BEAKER) (test nqmg=656) 1+ few MACROCYTES (BEAKER) (test niqz=790) 1+ few OVALOCYTES (BEAKER) (test vckz=173) 1+ few ARTIFACT (CELLAVISION)(BEAKER) (test blnd=3098) Present PLATELET CONCENTRATION (CELLAVISION)(BEAKER) Decreased (test jywu=2289) Received comment: User comments: Slide comments:POCT-GLUCOSE [id number] 06: 14:00 Test Item Value Reference Range Comments POC-GLUCOSE METER (BEAKER) 173 mg/dL 70-110 TESTED AT [facility] [address] (test ospq=7058) [facility] [address] U/S, ABDOMINAL, WITH [id number] 05:32:00Reason for exam:->evaluate portal vein, evaluate biliary system, evaluate for cirrhosisFINAL REPORT INDICATION: evaluate portal vein, evaluate biliary system, evaluate for cirrhosis COMPARISON: None TECHNIQUE: Real-time davis-scale transabdominal and color and spectral Doppler ultrasound. FINDINGS:Liver: Size: 14.4cm. Echogenicity: Increased parenchymal echogenicity.. Masses/lesions: None. Surface Nodularity: Nodular contour.. Intrahepatic bile ducts: Normal. Common bile duct: 0.4cm. MPV: 0.8cm. Gallbladder: Not identified. Pancreas: Head and uncinate process: Not well- seen secondary to poor acoustic windowing.. Body andtail: Not well-seen. Spleen: Size: 10.1cm. Echogenicity: Unremarkable. Right kidney: Size: And 0.3 x 4.5 x 5.2 cm. Parenchyma: Normal echogenicity. No cysts. No stones. Hydronephrosis: None. Left kidney: Size: 10.4 x 5.0 x 5.0 cm. Parenchyma: Normal echogenicity. No cysts.No stones. Hydronephrosis: None. Ascites: Small volume intra-abdominal ascites. The aorta measures 2.5 cm proximally, 2.1 cm midportion, distally not well seen secondary to poor acoustic windowing.. Regional Vasculature: The visible abdominal aorta, IVC and hepatic veins are patent. Color and Spectral imaging:MPV: Diameter: 0.8 Flow: Hepatopedal. Velocity: 24.3 cm/sec Filling defects: NoneLeft and right portal veins: Patent. Flow: Antegrade Filling defects: None. Hepatic arteries: Patent RI proper hepatic: 0.7 RI right hepatic: 0.7 RI left hepatic: 0.8 IVC, Hepatic venous confluence, right HV, middle HV and left HV are patent. Additional findings: None. IMPRESSION: Hepatic steatosis with nodular contour is severe hepatocellular dysfunction. Small volume intra-abdominal ascites. Unremarkable hepatic Doppler. Gallbladder is not identified on this examination. Signed: Howard Ahuja MDReport Verified Date/Time: 12/05/2018 05:32:17 BASIC METABOLIC [id number] 04:35:00 Test Item Value Reference Range Comments SODIUM (BEAKER) (test 150 meq/L 136-145 yrnp=568) POTASSIUM (BEAKER) (test 3.6 meq/L 3.5-5.1 maxw=911) CHLORIDE (BEAKER) (test 121 meq/L 98-107 jczk=447) CO2 (BEAKER) (test 20 meq/L 22-29 zcak=198) BLOOD UREA NITROGEN 38 mg/dL 7-21 (BEAKER) (test tzwx=970) CREATININE (BEAKER) (test 0.73 mg/dL 0.57-1.25 pait=083) GLUCOSE RANDOM (BEAKER) 162 mg/dL 70-105 (test wynr=039) CALCIUM (BEAKER) (test 8.2 mg/dL 8.4-10.2 xfud=010) EGFR (BEAKER) (test 81 mL/min/1.73 sq m ESTIMATED GFR IS NOT ssld=9792) ACCURATE CREATININE CLEARANCE IN PREDICTING GLOMERULAR FILTRATION RATE. ESTIMATED GFR IS NOT APPLICABLE FOR DIALYSIS PATIENTS. [id number] 04:34:00 Test Item Value Reference Range Comments PHOSPHORUS (BEAKER) (test kley=372) 2.0 mg/dL 2.3-4.7 [id number] 04:34:00 Test Item Value Reference Range Comments MAGNESIUM (BEAKER) (test alwv=353) 2.1 mg/dL 1.6-2.6 HEPATIC FUNCTION [id number] 04:34:00 Test Item Value Reference Range Comments TOTAL PROTEIN (BEAKER) (test rbrp=904) 4.9 gm/dL 6.0-8.3 ALBUMIN (BEAKER) (test zlgk=3340) 3.0 g/dL 3.5-5.0 BILIRUBIN TOTAL (BEAKER) (test ixcm=262) 0.9 mg/dL 0.2-1.2 BILIRUBIN DIRECT (BEAKER) (test juap=062) 0.5 mg/dL 0.1-0.5 ALKALINE PHOSPHATASE (BEAKER) (test cgqb=569) 50 U/L 40-150 AST (SGOT) (BEAKER) (test mpee=960) 505 U/L 5-34 ALT (SGPT) (BEAKER) (test ajdq=205) 549 U/L 6-55 [id number] 04:15:00 Test Item Value Reference Range Comments AMMONIA (BEAKER) (test tqlk=343) 97 mol/L 18-72 LACTIC ACID, [id number] 04:10:00 Test Item Value Reference Range Comments LACTATE BLOOD VENOUS (2) (BEAKER) (test 2.6 mmol/L 0.5-2.2 xrwx=7715) [id number] 03:54:00 Test Item Value Reference Range Comments PROTIME (BEAKER) (test qcji=334) 19.2 seconds 11.9-14.2 INR (BEAKER) (test zhfl=663) 1.7 <=5.9 PARTIAL THROMBOPLASTIN TIME (BEAKER) (test 31.6 seconds 22.5-36.0 hprx=743) Effective 10/24/2018: PT Reference Range ChangeNew: 11.9-14.2 Previous: 11.7- 14.7RECOMMENDED COUMADIN/WARFARIN INR THERAPY RANGESSTANDARD DOSE: 2.0-3.0 Includes: PROPHYLAXIS for venous thrombosis, systemic embolization; TREATMENT for venous thrombosis and/or pulmonary embolus.HIGH RISK: Target INR is2.5-3.5 for patients wiht mechanical heart valves.[id number] 03:54:00 Test Item Value Reference Range Comments FIBRINOGEN LEVEL (BEAKER) (test rxde=855) 188 mg/dl 225-434 POCT-GLUCOSE [id number] 00:17:00 Test Item Value Reference Range Comments POC-GLUCOSE METER (BEAKER) 185 mg/dL 70-110 TESTED AT [facility] [address] (test xbxf=1777) [place] [address] HEMOGLOBIN AND [id number] 21:43:00 Test Item Value Reference Range Comments HEMOGLOBIN (BEAKER) (test wodb=819) 8.1 GM/DL 11.2-15.7 HEMATOCRIT (BEAKER) (test ifch=276) 24.3 % 34.1-44.9 [id number] 19:32:00 Test Item Value Reference Range Comments FERRITIN (BEAKER) (test ntkj=835) 2039 ng/mL 5-275 T4, [id number] 18:58:00 Test Item Value Reference Range Comments FREE T4 (BEAKER) (test zlwj=224) 0.91 ng/dL 0.70-1.48 (CELLAVISION MANUAL DIFF)2018-12-04 18:52:00 Test Item Value Reference Range Comments NEUTROPHILS - REL (CELLAVISION)(BEAKER) (test 79 % scso=0080) LYMPHOCYTES - REL (CELLAVISION)(BEAKER) (test 15 % eqsr=3714) MONOCYTES - REL (CELLAVISION)(BEAKER) (test 4 % nohv=7517) BANDS - REL (CELLAVISION)(BEAKER) (test 1 % 0-10 riwa=6643) NEUTROPHILS - ABS (CELLAVISION)(BEAKER) (test 14.38 K/ul 1.56-6.13 yadf=1643) LYMPHOCYTES - ABS (CELLAVISION)(BEAKER) (test 2.73 K/ul 1.18-3.74 ucse=7353) MONOCYTES - ABS (CELLAVISION)(BEAKER) (test 0.73 K/uL 0.24-0.36 ypdt=9454) BANDS - ABS (CELLAVISION)(BEAKER) (test 0.18 K/uL 0.00-0.80 itjp=4756) TOTAL COUNTED (BEAKER) (test gtef=2377) 100 MANUAL NRBC PER 100 CELLS (BEAKER) (test 3 /100 WBC 0-0 hlxd=0144) SMUDGE CELLS (BEAKER) (test ygic=1548) Present GIANT PLATELETS (BEAKER) (test ggea=975) Present PLASMACYTOID LYMPHS(BEAKER) (test wdvi=2836) Present POLYCHROMATOPHILLIC RBCS(BEAKER) (test qzwa=339) 1+ few ANISOCYTOSIS (BEAKER) (test slpk=391) 1+ few MACROCYTES (BEAKER) (test khqp=866) 1+ few POIKILOCYTES (BEAKER) (test ebgq=640) 1+ few OVALOCYTES (BEAKER) (test eqnh=360) 1+ few ARTIFACT (CELLAVISION)(BEAKER) (test mnrk=7044) Present HELMET CELLS (CELLAVISION)(BEAKER) (test 1+ few oall=2408) PLATELET CONCENTRATION (CELLAVISION)(BEAKER) Adequate (test uzzv=1304) Received comment: User comments: Slide comments:[id number] 18:41:00 Test Item Value Reference Range Comments PROCALCITONIN (BEAKER) (test yfgv=4159) 0.20 ng/mL <0.05 SEPSIS RISK (ng/mL)Low: 0.05-0.50Intermediate: 0.51-2.00High: & gt;=2.01HEPATITIS A ANTIBODY, [id number] 18:27:00 Test Item Value Reference Range Comments HEPATITIS A IGG ANTIBODY (BEAKER) (test uynf=8182) Reactive Nonreactive HEPATITIS B SURFACE [id number] 18:26:00 Test Item Value Reference Range Comments HEPATITIS B SURFACE ANTIBODY (BEAKER) (test < mIU/mL <8.0 slqc=476) TSH/FREE T4 IF [id number] 18:26:00 Test Item Value Reference Range Comments THYROID STIMULATING HORMONE (BEAKER) (test 0.08 uIU/mL 0.35-4.94 kmyu=313) ALPHA FETOPROTEIN (AFP), TUMOR [id number] 18:26:00 Test Item Value Reference Range Comments ALPHA-FETOPROTEIN (BEAKER) (test kkst=2759) 2.2 ng/mL <10.0 HEPATITIS A ANTIBODY, [id number] 18:26:00 Test Item Value Reference Range Comments HEPATITIS A IGM ANTIBODY (BEAKER) (test Nonreactive Nonreactive ekep=448) HEPATITIS B CORE ANTIBODY, [id number] 18:26:00 Test Item Value Reference Range Comments HEPATITIS B CORE TOTAL ANTIBODY (BEAKER) (test Nonreactive Nonreactive zend=212) HEPATITIS B SURFACE [id number] 18:23:00 Test Item Value Reference Range Comments HEPATITIS B SURFACE ANTIGEN (2) (BEAKER) (test Nonreactive Nonreactive qkec=6680) HEPATITIS C [id number] 18:23:00 Test Item Value Reference Range Comments HEPATITIS C ANTIBODY (BEAKER) (test ksdf=852) Nonreactive Nonreactive RAD, CHEST, 1 VIEW, NON [id number] 18:18:00Reason for exam:->hypoxemiaIs the patient ?->NoShould this be performed at the bedside?-> YesFINAL REPORT EXAM: Chest one view CLINICAL HISTORY: Hypoxemia FINDINGS: Patchy airway opacities are noted in both lungs which may represent edema versus pneumonitis. There is no evidence of pleural effusion or pneumothorax. The cardiac size is within normal limits. The regional osseous structures are Signed: Jorje Palacios MDReport Verified Date/Time: 12/04/2018 18:18:54 Reading Location: [address] Consult Reading Room CBC W/PLT COUNT & AUTO [id number] 18:17:00 Test Item Value Reference Range Comments WHITE BLOOD CELL COUNT (BEAKER) (test lvbq=586) 18.2 K/ L 3.5-10.5 RED BLOOD CELL COUNT (BEAKER) (test qzzw=463) 2.70 M/ L 3.93-5.22 HEMOGLOBIN (BEAKER) (test uvgc=539) 8.5 GM/DL 11.2-15.7 HEMATOCRIT (BEAKER) (test ncrc=520) 26.1 % 34.1-44.9 MEAN CORPUSCULAR VOLUME (BEAKER) (test piqq=063) 96.7 fL 79.4-94.8 MEAN CORPUSCULAR HEMOGLOBIN (BEAKER) (test 31.5 pg 25.6-32.2 lnni=721) MEAN CORPUSCULAR HEMOGLOBIN CONC (BEAKER) (test 32.6 GM/DL 32.2-35.5 mash=907) RED CELL DISTRIBUTION WIDTH (BEAKER) (test 22.2 % 11.7-14.4 szoz=140) PLATELET COUNT (BEAKER) (test uahm=487) 158 K/CU MM 150-450 MEAN PLATELET VOLUME (BEAKER) (test uxav=109) 11.4 fL 9.4-12.3 NUCLEATED RED BLOOD CELLS (BEAKER) (test 1 /100 WBC 0-0 fiyu=121) NEUTROPHILS RELATIVE PERCENT (BEAKER) (test 71 % znky=435) LYMPHOCYTES RELATIVE PERCENT (BEAKER) (test 18 % fsqs=283) MONOCYTES RELATIVE PERCENT (BEAKER) (test 10 % khti=838) EOSINOPHILS RELATIVE PERCENT (BEAKER) (test 0 % bxgr=085) BASOPHILS RELATIVE PERCENT (BEAKER) (test 0 % towd=948) NEUTROPHILS ABSOLUTE COUNT (BEAKER) (test 12.85 K/ L 1.56-6.13 ccdo=343) LYMPHOCYTES ABSOLUTE COUNT (BEAKER) (test 3.35 K/ L 1.18-3.74 biqy=647) MONOCYTES ABSOLUTE COUNT (BEAKER) (test 1.74 K/ L 0.24-0.36 ltor=082) EOSINOPHILS ABSOLUTE COUNT (BEAKER) (test 0.01 K/ L 0.04-0.36 cpbf=868) BASOPHILS ABSOLUTE COUNT (BEAKER) (test 0.08 K/ L 0.01-0.08 xtqe=577) IMMATURE GRANULOCYTES-RELATIVE PERCENT (BEAKER) 1 % 0-1 (test yexp=7563) B-TYPE NATRIURETIC FACTOR (BNP)2018-12-04 18:10:00 Test Item Value Reference Range Comments B-TYPE NATRIURETIC PEPTIDE (BEAKER) (test 155 pg/mL 0-100 ioog=479) COMPREHENSIVE METABOLIC [id number] 18:08:00 Test Item Value Reference Range Comments TOTAL PROTEIN (BEAKER) 5.5 gm/dL 6.0-8.3 (test cbnu=560) ALBUMIN (BEAKER) (test 3.3 g/dL 3.5-5.0 dcuc=1081) ALKALINE PHOSPHATASE 55 U/L 40-150 (BEAKER) (test ibal=827) BILIRUBIN TOTAL (BEAKER) 1.1 mg/dL 0.2-1.2 (test ahwb=980) SODIUM (BEAKER) (test 150 meq/L 136-145 iwsm=786) POTASSIUM (BEAKER) (test 3.5 meq/L 3.5-5.1 pkti=926) CHLORIDE (BEAKER) (test 122 meq/L 98-107 tnax=999) CO2 (BEAKER) (test 18 meq/L 22-29 haxb=502) BLOOD UREA NITROGEN 38 mg/dL 7-21 (BEAKER) (test papc=680) CREATININE (BEAKER) (test 0.78 mg/dL 0.57-1.25 mygt=399) GLUCOSE RANDOM (BEAKER) 168 mg/dL 70-105 (test ddzg=289) CALCIUM (BEAKER) (test 8.5 mg/dL 8.4-10.2 vkzh=456) AST (SGOT) (BEAKER) (test 825 U/L 5-34 itxs=512) ALT (SGPT) (BEAKER) (test 712 U/L 6-55 jduh=147) EGFR (BEAKER) (test 75 mL/min/1.73 sq m ESTIMATED GFR IS NOT bknr=6983) ACCURATE CREATININE CLEARANCE IN PREDICTING GLOMERULAR FILTRATION RATE. ESTIMATED GFR IS NOT APPLICABLE FOR DIALYSIS PATIENTS. [id number] 18:07:00 Test Item Value Reference Range Comments PHOSPHORUS (BEAKER) (test hqvw=366) 2.2 mg/dL 2.3-4.7 [id number] 18:07:00 Test Item Value Reference Range Comments MAGNESIUM (BEAKER) (test kzdb=068) 2.0 mg/dL 1.6-2.6 CHLORIDE, RANDOM [id number] 18:03:00 Test Item Value Reference Range Comments CHLORIDE URINE (BEAKER) (test fhoj=223) 58 meq/L Reference Range: No NormalsCREATININE, RANDOM [id number] 18:03:00 Test Item Value Reference Range Comments CREATININE URINE (BEAKER) (test heek=313) 90.3 mg/dL Reference Range: No NormalsPROTEIN, RANDOM [id number] 18:03:00 Test Item Value Reference Range Comments PROTEIN, URINE (BEAKER) (test haxr=6853) 17 mg/dL 0-14 SODIUM, RANDOM [id number] 18:03:00 Test Item Value Reference Range Comments SODIUM URINE (BEAKER) (test stnz=666) < meq/L Reference Range: No [id number] 18:02:00 Test Item Value Reference Range Comments ALPHA-1 ANTITRYPSIN (BEAKER) (test kdrn=790) 156.80 mg/dL 90.00-200.00 IRON, TIBC, % SAT. (WITHOUT FERRITIN)2018-12-04 18:02:00 Test Item Value Reference Range Comments IRON (BEAKER) (test mmft=627) 140.0 ug/dL 40.0-160.0 TOTAL IRON BINDING CAPACITY (BEAKER) (test 258 ug/dL 250-450 ziyj=585) IRON % SATURATION (2) (BEAKER) (test pouc=9199) 54 % 20-55 RAD, ABDOMEN/KUB, 1 VIEW [id number] 18:00:00Reason for exam:->abdominal distentionShould this be performed at the bedside?->YesFINAL REPORT EXAM: KUB CLINICAL HISTORY: Abdominal distention FINDINGS: Moderate to severely dilated air-filled small bowel loops are noted throughout the abdomen with small amount of bowel gas in the rectum. This may represent generalized ileus versus distal obstruction. The reservoir of the spinal infusion pump is noted in the right lower quadrant. There is no evidence of pneumoperitoneum. The regional osseous structures are unremarkable. Signed: Jorje Palacios MDReport Verified Date/Time: 12/04/2018 18:00:28 Reading Location: [address] Consult Reading Room LACTIC ACID, [id number] 17:59:00 Test Item Value Reference Range Comments LACTATE BLOOD VENOUS (2) 5.4 mmol/L 0.5-2.2 Specimen slightly hemolyzed (BEAKER) (test itlu=7040) [id number] 17:58:00 Test Item Value Reference Range Comments AMMONIA (BEAKER) (test ugkp=776) 121 mol/L 18-72 URINALYSIS W/ REFLEX URINE [id number] 17:57:00 Test Item Value Reference Range Comments COLOR (BEAKER) (test xnpm=237) Yellow CLARITY (BEAKER) (test cqeu=996) Clear SPECIFIC GRAVITY UA (BEAKER) (test xdte=193) 1.022 1.001-1.035 PH UA (BEAKER) (test zyyz=872) 6.0 5.0-8.0 PROTEIN UA (BEAKER) (test rfer=781) 10 mg/dL Negative GLUCOSE UA (BEAKER) (test lwnv=395) Negative Negative KETONES UA (BEAKER) (test ncck=133) Negative Negative BILIRUBIN UA (BEAKER) (test mwnn=680) Negative Negative BLOOD UA (BEAKER) (test tmha=209) Moderate Negative NITRITE UA (BEAKER) (test pzqk=992) Negative Negative LEUKOCYTE ESTERASE UA (BEAKER) (test ncbp=609) Small Negative UROBILINOGEN UA (BEAKER) (test cdqb=245) 0.2 mg/dL 0.2-1.0 RBC UA (BEAKER) (test vbzu=069) 23 /HPF WBC UA (BEAKER) (test nqxw=086) 16 /HPF MUCUS (BEAKER) (test agqb=6531) Rare SOURCE(BEAKER) (test dkrj=8368) [id number] 17:57:00 Test Item Value Reference Range Comments PROTIME (BEAKER) (test smjg=716) 19.5 seconds 11.9-14.2 INR (BEAKER) (test qbvz=593) 1.7 <=5.9 PARTIAL THROMBOPLASTIN TIME (BEAKER) (test 29.0 seconds 22.5-36.0 wbef=902) Effective 10/24/2018: PT Reference Range ChangeNew: 11.9-14.2 Previous: 11.7- 14.7RECOMMENDED COUMADIN/WARFARIN INR THERAPY RANGESSTANDARD DOSE: 2.0-3.0 Includes: PROPHYLAXIS for venous thrombosis, systemic embolization; TREATMENT for venous thrombosis and/or pulmonary embolus.HIGH RISK: Target INR is2.5-3.5 for patients wiht mechanical heart valves.[id number] 17:57:00 Test Item Value Reference Range Comments FIBRINOGEN LEVEL (BEAKER) (test vdwn=592) 224 mg/dl 225-434 BLOOD GAS, [id number] 17:46:00 Test Item Value Reference Range Comments PH ARTERIAL (BEAKER) (test cjco=630) 7.46 7.35-7.45 PCO2 ARTERIAL (BEAKER) (test ywes=363) 27 mmHg 35-45 PO2 ARTERIAL (BEAKER) (test ipcc=766) 83 mmHg 80-90 O2 SATURATION ARTERIAL (BEAKER) (test oovk=410) 97.0 % 96.0-97.0 HCO3 ARTERIAL (BEAKER) (test bvzk=182) 19 mmol/L 21-29 BASE EXCESS ARTERIAL (BEAKER) (test nlvi=549) -4.3 mmol/L -2.0-3.0 PATIENT TEMPERATURE (BEAKER) (test ahdd=2614) 36.7 C FIO2 (BEAKER) (test dcmq=2918) 40.0 %
[2019-04-12 14:44] LABS: Absolute Lymphocytes (CBC) 1.5 K/uL (0.7-4.9); Basophils % 1.1 % (0-1.3); Hematocrit 25.2 % (36.0-45.0); Lymphocytes % 33.2 % (15.3-44.8); MPV 10.3 fL (7.6-11.3); RBC Red Blood Cell Count 2.94 M/uL (3.86-4.86)
[2019-04-12 14:56] LABS: Albumin 2.8 g/dL (3.4-5.0); Bilirubin Direct 0.2 mg/dL (0-0.2); Bilirubin Total 0.8 mg/dL (0.2-1.0); Potassium 3.4 mmol/L (3.5-5.1)
--- NOTE | 2019-04-12 16:13 | RAD REPORT ---
EXAM DESCRIPTION: CT - Abdomen Pelvis W Contrast - 04/12/2019 3:57 pm CLINICAL HISTORY: Abdominal pain/rectal bleeding COMPARISON: November 2018 TECHNIQUE: Computed axial tomography of the abdomen pelvis was obtained. 100 cc Isovue-300 was admin istered intravenously. Oral contrast was not requested which limits evaluation of bowel. All CT scans are performed using dose optimization technique as appropriate and may include automated exposure control or mA/KV adjustment according to patient size. FINDINGS: Cirrhotic liver. Cholecystectomy The Spleen, pancreas, adrenal and kidneys appear unremarkable. There is no evidence of diverticulitis. The wall of the entire colon is moderately thickened. Pneumat osis intestinalis is not seen. Small amount of ascites is present within the abdomen. A moderate amount of ascites is present within the pelvis The wall of the duodenum and jejunum is thickened. IMPRESSION: Moderate pancolitis Thickening of the wall of the duodenum and jejunum may be secondary to inflammation or hypoalbuminemi a
[2019-04-12] MEDS ORDERED: metroNIDAZOLE 500 MG TABLET ONE (16:34)
[2019-04-12] MEDS ORDERED: CIPROFLOXACIN HCL 500 MG TAB ONE (16:35)
[2019-04-12 16:48] LABS: Anisocytosis 3+; Blood Morphology Comment NOTED (NOT SEEN); Platelet Estimate DECR; Poikilocytosis SLIGHT; Urine White Blood Cell Casts OK
[2019-04-12 16:49] LABS: Ovalocytes SLIGHT
--- NOTE | 2019-04-12 17:30 | EDPHYS ---
Physician Documentation [facility] Name: Kaitlyn Sesay Age: 59 yrs Sex: Female : 1960 Arrival Date: 04/12/2019 Time: 13:12 Bed 30 Private MD: Tavares Dillon R ED Physician Jamil Waters HPI: 04/12 16:22 This 59 yrs old Female presents to ER via Ambulatory with complaints of kdr Rectal Bleeding. 16:22 The patient presents to the emergency department with bleeding from the rectum/anus, kdr that is mild. Onset: The symptoms/episode began/occurred gradually, Since Monday. Context: the patient The patient has a history of cirrhosis . Modifying factors: The symptoms are alleviated by nothing, The symptoms are aggravated by nothing. Associate signs and symptoms: Pertinent positives: abdominal pain in the suprapubic area, right lower quadrant and left lower quadrant, lower GI bleeding, Pertinent negatives: constipation. The patient has experienced similar episodes in the past, a few times. The patient has not recently seen a physician. Historical: - Allergies: 13:28 Azithromycin; tw2 13:28 Cephalexin; tw2 13:28 PENICILLINS; tw2 13:28 Rocephin; tw2 13:28 Rofecoxib; tw2 13:28 Sulfa (Sulfonamide Antibiotics); tw2 - Home Meds: 13:28 levothyroxine 150 mcg tab 1 tab once daily [Active]; gabapentin 600 mg Oral tab 1 tab 3 tw2 times per day [Active]; sufentanil citrate intravenous for pain pump [Active]; bupivicaine [Active]; pravastatin 40 mg oral tab 1 tab once daily [Active]; - PMHx: 13:28 Chronic pain; Thyroid problem; GI Bleed; Liver failure; tw2 - PSHx: 13:28 Appendectomy; Cholecystectomy; ; Hysterectomy; tw2 - Immunization history:: Adult Immunizations. - Social history:: Smoking status: . - Ebola Screening: : Patient denies travel to an Ebola-affected area in the 21 days before illness onset. ROS: 16:22 Constitutional: Negative for fever, chills, and weight loss, Eyes: Negative for injury, kdr pain, redness, and discharge, ENT: Negative for injury, pain, and discharge, Neck: Negative for injury, pain, and swelling, Cardiovascular: Negative for chest pain, palpitations, and edema, Respiratory: Negative for shortness of breath, cough, wheezing, and pleuritic chest pain, Back: Negative for injury and pain, : Negative for injury, bleeding, discharge, and swelling, MS/Extremity: Negative for injury and deformity, Skin: Negative for injury, rash, and discoloration, Neuro: Negative for headache, weakness, numbness, tingling, and seizure activity. Psych: Negative for depression, anxiety, suicide ideation, homicidal ideation, and hallucinations, Allergy/Immunology: Negative for hives, rash, and allergies, Endocrine: Negative for neck swelling, polydipsia, polyuria, polyphagia, and marked weight changes, Hematologic/Lymphatic: Negative for swollen nodes, abnormal bleeding, and unusual bruising. 16:22 Abdomen/GI: Positive for abdominal pain, nausea, diarrhea, black/tarry stool, rectal bleeding. Exam: 16:22 Constitutional: This is a well developed, well nourished patient who is awake, alert, kdr and in no acute distress. Head/Face: Normocephalic, atraumatic. Eyes: Pupils equal round and reactive to light, extra-ocular motions intact. Lids and lashes normal. Conjunctiva and sclera are non-icteric and not injected. Cornea within normal limits. Periorbital areas with no swelling, redness, or edema. Neck: Trachea midline, no thyromegaly or masses palpated, and no cervical lymphadenopathy. Supple, full range of motion without nuchal rigidity, or vertebral point tenderness. No Meningismus. Chest/axilla: Normal chest wall appearance and motion. Nontender with no deformity. No lesions are appreciated. Cardiovascular: Regular rate and rhythm with a normal S1 and S2. No gallops, murmurs, or rubs. Normal PMI, no JVD. No pulse deficits. Respiratory: Lungs have equal breath sounds bilaterally, clear to auscultation and percussion. No rales, rhonchi or wheezes noted. No increased work of breathing, no retractions or nasal flaring. Back: No spinal tenderness. No costovertebral tenderness. Full range of motion. Skin: Warm, dry with normal turgor. Normal color with no rashes, no lesions, and no evidence of cellulitis. MS/ Extremity: Pulses equal, no cyanosis. Neurovascular intact. Full, normal range of motion. Neuro: Awake and alert, GCS 15, oriented to person, place, time, and situation. Cranial nerves II-XII grossly intact. Motor strength 5/5 in all extremities. Sensory grossly intact. Cerebellar exam normal. Normal gait. Psych: Awake, alert, with orientation to person, place and time. Behavior, mood, and affect are within normal limits. 16:22 Abdomen/GI: Inspection: abdomen appears normal, Bowel sounds: active, Palpation: soft, in all quadrants, mild abdominal tenderness, in the right lower quadrant and left lower quadrant, mass, is not appreciated, rebound tenderness, is not appreciated, voluntary guarding, is not appreciated, involuntary guarding, is not appreciated. Vital Signs: 13:25 BP 139 / 64; Pulse 108; Resp 19; Temp 99.3(O); Pulse Ox 100% on R/A; Weight 70.31 kg tw2 (R); Pain 6/10; 14:38 BP 119 / 79; Pulse 89; Resp 16; Pulse Ox 100% on R/A; rv 15:39 BP 114 / 67; Pulse 84; Resp 16; Temp 99.0(O); Pulse Ox 100% ; lt1 16:24 BP 113 / 57; Pulse 83; Resp 17; Pulse Ox 100% on R/A; rv 17:38 BP 113 / 50; Pulse 82; Resp 17; Pulse Ox 100% on R/A; rv MDM: 16:22 Data reviewed: vital signs, nurses notes, lab test result(s), radiologic studies. kdr Counseling: I had a detailed discussion with the patient and/or guardian regarding: the historical points, exam findings, and any diagnostic results supporting the discharge/admit diagnosis, lab results, radiology results. 17:29 Patient medically screened. kdr 04/12 14:05 Order name: Basic Metabolic Panel; Complete Time: 15:27 kdr 04/12 14:05 Order name: CBC with Diff; Complete Time: 17:14 kdr 04/12 14:05 Order name: Creatinine for Radiology; Complete Time: 15:27 kdr 04/12 14:05 Order name: Hepatic Function; Complete Time: 15:27 kdr 04/12 14:05 Order name: Lipase; Complete Time: 15:27 kdr 04/12 14:05 Order name: Type And Screen; Complete Time: 16:26 kdr 04/12 14:05 Order name: IV Saline Lock; Complete Time: 14:37 kdr 04/12 14:05 Order name: Labs collected and sent; Complete Time: 14:37 kdr 04/12 15:27 Order name: CT Abd/Pelvis - IV Contrast Only; Complete Time: 16:26 kdr 04/12 16:49 Order name: CBC Smear Scan; Complete Time: 17:14 EDMS Administered Medications: 16:45 Drug: Cipro 500 mg Route: PO; rv 17:41 Follow up: Response: No adverse reaction rv 16:46 Drug: Flagyl 500 mg Route: PO; rv 17:40 Follow up: Response: No adverse reaction rv Disposition: 04/12/19 17:29 Discharged to Home. Impression: [place] Colitis, Abdominal and pelvic pain, Rectal bleeding. - Condition is Stable. - Discharge Instructions: Rectal Bleeding, [id number], Colitis. - Prescriptions for Protonix 40 mg Oral Tablet - take 1 tablet by ORAL route once daily; 30 tablet. Cipro 500 mg Oral Tablet - take 1 tablet by ORAL route every 12 hours for 10 days; 20 tablet. Flagyl 500 mg Oral Tablet - take 1 tablet by ORAL route every 6 hours for 10 days; 40 tablet. Zofran 4 mg Oral Tablet - take 1 tablet by ORAL route every 4-6 hours As needed; 12 tablet. - Medication Reconciliation Form, Thank You Letter, Antibiotic Education form. - Follow up: Tavares Dillon MD; When: 2 - 3 days; Reason: If symptoms return, Further diagnostic work-up, Recheck today's complaints, Continuance of care, Re-evaluation by your physician. - Problem is an acute exacerbation. - Symptoms have improved. Signatures: Dispatcher [employer] EDMS Jamil Waters MD MD kdr Maryjane Salinas RN RN tw2 Adrian Barrientos RN RN rv Corrections: (The following items were deleted from the chart) 17:29 17:29 04/12/2019 17:29 Discharged to Home. Impression: [place] Colitis. Condition is kdr Stable. Forms are Medication Reconciliation Form, Thank You Letter, Antibiotic Education, Prescription Opioid Use. Follow up: Tavares Dillon; When: 2 - 3 days; Reason: If symptoms return, Further diagnostic work-up, Recheck today's complaints, Continuance of care, Re-evaluation by your physician. Problem is an acute exacerbation. Symptoms have improved. kdr 17:52 17:29 04/12/2019 17:29 Discharged to Home. Impression: [place] Colitis; Abdominal and rv pelvic pain; Rectal bleeding. Condition is Stable. Forms are Medication Reconciliation Form, Thank You Letter, Antibiotic Education, Prescription Opioid Use. Follow up: Tavares Dillon; When: 2 - 3 days; Reason: If symptoms return, Further diagnostic work-up, Recheck today's complaints, Continuance of care, Re-evaluation by your physician. Problem is an acute exacerbation. Symptoms have improved. kdr
--- NOTE | 2019-04-12 17:30 | ER ---
Nurse's Notes [facility] Name: Kaitlyn Sesay Age: 59 yrs Sex: Female : 1960 Arrival Date: 04/12/2019 Time: 13:12 Bed 30 Private MD: Taavres Dillon R Diagnosis: [place] Colitis;Abdominal and pelvic pain;Rectal bleeding Presentation: 04/12 13:24 Presenting complaint: Patient states: i am having black tarry stools since Monday, Dr. josh Dhillon thinks i might have an infection in my stomach, i feel weak and having stomach pains, and i am getting a headache real bad after i get up and walk a bit. Transition of care: patient was not received from another setting of care. Onset of symptoms was April 12, 2019. Risk Assessment: Do you want to hurt yourself or someone else? Patient reports no desire to harm self or others. Initial Sepsis Screen: Does the patient meet any 2 criteria? No. Patient's initial sepsis screen is negative. Does the patient have a suspected source of infection? No. Patient's initial sepsis screen is negative. Care prior to arrival: None. 13:24 Method Of Arrival: Ambulatory tw2 13:24 Acuity: VIKRAM [address] tw2 13:[address] Dhillon spoke with Dr. Silva about this pt. tw2 Triage Assessment: 13:26 General: Appears in no apparent distress. Behavior is quiet. Pain: Complains of pain in tw2 abdomen. Historical: - Allergies: 13:28 Azithromycin; tw2 13:28 Cephalexin; tw2 13:28 PENICILLINS; tw2 13:28 Rocephin; tw2 13:28 Rofecoxib; tw2 13:28 Sulfa (Sulfonamide Antibiotics); tw2 - Home Meds: 13:28 levothyroxine 150 mcg tab 1 tab once daily [Active]; gabapentin 600 mg Oral tab 1 tab 3 tw2 times per day [Active]; sufentanil citrate intravenous for pain pump [Active]; bupivicaine [Active]; pravastatin 40 mg oral tab 1 tab once daily [Active]; - PMHx: 13:28 Chronic pain; Thyroid problem; GI Bleed; Liver failure; tw2 - PSHx: 13:28 Appendectomy; Cholecystectomy; ; Hysterectomy; tw2 - Immunization history:: Adult Immunizations. - Social history:: Smoking status: . - Ebola Screening: : Patient denies travel to an Ebola-affected area in the 21 days before illness onset. Screenin:46 Abuse screen: Denies threats or abuse. Nutritional screening: No deficits noted. tw2 Tuberculosis screening: No symptoms or risk factors identified. Fall Risk None identified. Assessment: 14:35 General: Appears in no apparent distress. uncomfortable, Behavior is calm, cooperative. rv Pain: Complains of pain in right lower quadrant and left lower quadrant. Neuro: Level of Consciousness is awake, alert, obeys commands, Oriented to person, place, time, situation. Cardiovascular: Patient's skin is warm and dry. Respiratory: Airway is patent. GI: Abdomen is round distended, Reports lower abdominal pain, diarrhea. : No signs and/or symptoms were reported regarding the genitourinary system. EENT: No signs and/or symptoms were reported regarding the EENT system. Derm: Skin is intact. Musculoskeletal: No signs and/or symptoms reported regarding the musculoskeletal system. 16:27 Reassessment: Patient appears in no apparent distress at this time. No changes from rv previously documented assessment. Patient and/or family updated on plan of care and expected duration. Pain level reassessed. Patient is alert, oriented x 3, equal unlabored respirations, skin warm/dry/pink. 17:38 Reassessment: Patient states feeling better. rv Vital Signs: 13:25 BP 139 / 64; Pulse 108; Resp 19; Temp 99.3(O); Pulse Ox 100% on R/A; Weight 70.31 kg tw2 (R); Pain 6/10; 14:38 BP 119 / 79; Pulse 89; Resp 16; Pulse Ox 100% on R/A; rv 15:39 BP 114 / 67; Pulse 84; Resp 16; Temp 99.0(O); Pulse Ox 100% ; lt1 16:24 BP 113 / 57; Pulse 83; Resp 17; Pulse Ox 100% on R/A; rv 17:38 BP 113 / 50; Pulse 82; Resp 17; Pulse Ox 100% on R/A; rv ED Course: 13:12 Patient arrived in ED. as 13:13 Tavares Dillon MD is Private Physician. as 13:25 Triage completed. tw2 13:25 Arm band placed on. tw2 13:30 Bed in low position. Call light in reach. tw2 14:05 Jamil Silva MD is Attending Physician. kdr 14:15 Inserted saline lock: 20 gauge in left antecubital area, using aseptic technique. Blood rv collected. 14:34 Adrian Barrientos, RN is Primary Nurse. rv 14:37 Type And Screen Sent. rv 14:37 Basic Metabolic Panel Sent. rv 14:37 CBC with Diff Sent. rv 14:37 Creatinine for Radiology Sent. rv 14:37 Hepatic Function Sent. rv 14:37 Lipase Sent. rv 15:58 CT Abd/Pelvis - IV Contrast Only In Process Unspecified. EDMS 17:28 Tavares Dillon MD is Referral Physician. kdr 17:38 [facility] [employer] MANAGER DURING RECTAL EXAM BY DR SILVA. rv 17:40 IV discontinued, intact, bleeding controlled, No redness/swelling at site. Pressure rv dressing applied. Administered Medications: 16:45 Drug: Cipro 500 mg Route: PO; rv 17:41 Follow up: Response: No adverse reaction rv 16:46 Drug: Flagyl 500 mg Route: PO; rv 17:40 Follow up: Response: No adverse reaction rv Outcome: 17:29 Discharge ordered by MD. kdr 17:40 Discharged to home ambulatory, with family. rv 17:40 Condition: good 17:40 Discharge instructions given to patient, Instructed on discharge instructions, follow up and referral plans. medication usage, Demonstrated understanding of instructions, follow-up care, medications, Prescriptions given X 4. 17:52 Patient left the ED. rv Signatures: Dispatcher [employer] EDOH Jamil Silva MD MD kdr Martinez, Amelia as Wise, Tara, RN RN tw2 Adrian Barrientos, RN RN [facility], [place] [id number]
[2019-04-12 18:20] VITALS: O2SAT 100
[2019-04-12 18:22] VITALS: TEMP 99
[2019-04-12 18:25] VITALS: BP 113/50
== END 2019-04-12 17:52 | disposition home or self-care (01) ==
LOC: ER 13:10
DX: K51.00 Ulcerative (chronic) pancolitis without complications (principal); R10.9 Unspecified abdominal pain; R10.2 Pelvic and perineal pain; Z88.0 Allergy status to penicillin; Z88.3 Allergy status to other anti-infective agents; Z88.1 Allergy status to other antibiotic agents; Z88.2 Allergy status to sulfonamides; E07.9 Disorder of thyroid, unspecified; K72.90 Hepatic failure, unspecified without coma
CPT/HCPCS: 85025; 80048; 36415; 86900; 86850; 86901; 80076; 83690; 74177; Q9967

== ENCOUNTER 2019-04-19 12:15 | Day surgery (SDC) | payer OTHER ==
--- OUTSIDE RECORDS SUMMARY | 2019-04-19 12:21 | XMS REPORT ---
:1960 [facility] Address [address] [place] [address] [place] [id number] Care Team Providers Name Role Phone DONAVON MISTRY Unavailable Unavailable YRN PORTILLO Unavailable Unavailable Problems This patient has no known problems. Allergies, Adverse Reactions, Alerts This patient has no known allergies or adverse reactions. Medications This patient has no known medications. Results Test Description Test Time Test Comments Text Results Atomic Results Result Comments TISSUE EXAM 2019-01-23 17:34:00 Surgical Pathology Report Case: [id number] Authorizing Provider: Donavon Mistry MD Collected: 01/21/2019 1144 Ordering Location: 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 Small bowel NOSB. Gastric [...] evaluated Immunohistochemistry technical testing was performed at [facility], Pathology Laboratory where it was developed and [...] (BEAKER) (test 207 mg/dL 70-110 TESTED AT [facility] [address] [place] [address] psnx=4069) [facility] [address] POCT-GLUCOSE [id number] 08:03:00 Test Item Value Reference Range Comments POC-GLUCOSE METER (BEAKER) 117 mg/dL 70-110 TESTED AT [address] (test otvm=7069) [place] [address] [id number] 06:09:00 Test Item Value Reference Range Comments MAGNESIUM (BEAKER) (test knos=884) 1.9 mg/dL 1.6-2.6 BASIC METABOLIC [id number] 06:09:00 Test Item Value Reference Range Comments SODIUM (BEAKER) (test 136 meq/L 136-145 stan=831) POTASSIUM (BEAKER) (test 3.8 meq/L 3.5-5.1 qbty=136) CHLORIDE (BEAKER) (test 100 meq/L 98-107 grid=265) CO2 (BEAKER) (test 29 meq/L 22-29 szor=985) BLOOD UREA NITROGEN 10 mg/dL 7-21 (BEAKER) (test cmpx=776) CREATININE (BEAKER) (test 0.71 mg/dL 0.57-1.25 frkb=129) GLUCOSE RANDOM (BEAKER) 100 mg/dL 70-105 (test jtqb=165) CALCIUM (BEAKER) (test 8.6 mg/dL 8.4-10.2 ybcp=598) EGFR (BEAKER) (test 84 mL/min/1.73 sq m ESTIMATED GFR IS NOT tzpp=4122) ACCURATE CREATININE CLEARANCE IN PREDICTING GLOMERULAR FILTRATION RATE. ESTIMATED GFR IS NOT APPLICABLE FOR DIALYSIS PATIENTS. HEPATIC FUNCTION [id number] 06:09:00 Test Item Value Reference Range Comments TOTAL PROTEIN (BEAKER) (test xqgb=097) 5.8 gm/dL 6.0-8.3 ALBUMIN (BEAKER) (test bape=7380) 3.3 g/dL 3.5-5.0 BILIRUBIN TOTAL (BEAKER) (test otdu=351) 1.5 mg/dL 0.2-1.2 BILIRUBIN DIRECT (BEAKER) (test gtwc=643) 0.9 mg/dL 0.1-0.5 ALKALINE PHOSPHATASE (BEAKER) (test wrrd=535) 70 U/L 40-150 AST (SGOT) (BEAKER) (test kpim=317) 38 U/L 5-34 ALT (SGPT) (BEAKER) (test cvgs=804) 44 U/L 6-55 [id number] 05:47:00 Test Item Value Reference Range Comments PROTIME (BEAKER) (test vcoe=165) 17.3 seconds 11.9-14.2 INR (BEAKER) (test fnsc=383) 1.5 <=5.9 PARTIAL THROMBOPLASTIN TIME (BEAKER) (test 36.2 seconds 22.5-36.0 ndau=749) Effective 10/24/2018: PT Reference Range ChangeNew: 11.9-14.2 Previous: 11.7- 14.7RECOMMENDED COUMADIN/WARFARIN INR THERAPY RANGESSTANDARD DOSE: 2.0-3.0 Includes: PROPHYLAXIS for venous thrombosis, systemic embolization; TREATMENT for venous thrombosis and/or pulmonary embolus.HIGH RISK: Target INR is2.5-3.5 for patients wiht mechanical heart valves.CBC W/PLT COUNT & AUTO [id number] 05:46:00 Test Item Value Reference Range Comments WHITE BLOOD CELL COUNT (BEAKER) (test ugjn=239) 8.4 K/ L 3.5-10.5 RED BLOOD CELL COUNT (BEAKER) (test mtiz=844) 2.61 M/ L 3.93-5.22 HEMOGLOBIN (BEAKER) (test hknx=644) 8.3 GM/DL 11.2-15.7 HEMATOCRIT (BEAKER) (test vpbv=169) 25.5 % 34.1-44.9 MEAN CORPUSCULAR VOLUME (BEAKER) (test xdlm=248) 97.7 fL 79.4-94.8 MEAN CORPUSCULAR HEMOGLOBIN (BEAKER) (test 31.8 pg 25.6-32.2 daks=480) MEAN CORPUSCULAR HEMOGLOBIN CONC (BEAKER) (test 32.5 GM/DL 32.2-35.5 lbea=756) RED CELL DISTRIBUTION WIDTH (BEAKER) (test 20.8 % 11.7-14.4 iwcc=489) PLATELET COUNT (BEAKER) (test kaok=030) 89 K/CU MM 150-450 MEAN PLATELET VOLUME (BEAKER) (test agix=649) 11.3 fL 9.4-12.3 NUCLEATED RED BLOOD CELLS (BEAKER) (test 0 /100 WBC 0-0 lmpn=520) NEUTROPHILS RELATIVE PERCENT (BEAKER) (test 55 % pwwp=942) LYMPHOCYTES RELATIVE PERCENT (BEAKER) (test 27 % tqze=399) MONOCYTES RELATIVE PERCENT (BEAKER) (test 16 % cjmm=906) EOSINOPHILS RELATIVE PERCENT (BEAKER) (test 2 % shpo=651) BASOPHILS RELATIVE PERCENT (BEAKER) (test 1 % isvh=475) NEUTROPHILS ABSOLUTE COUNT (BEAKER) (test 4.57 K/ L 1.56-6.13 riov=440) LYMPHOCYTES ABSOLUTE COUNT (BEAKER) (test 2.23 K/ L 1.18-3.74 fdzz=784) MONOCYTES ABSOLUTE COUNT (BEAKER) (test wdxd=619) 1.30 K/ L 0.24-0.36 EOSINOPHILS ABSOLUTE COUNT (BEAKER) (test 0.18 K/ L 0.04-0.36 mdhl=415) BASOPHILS ABSOLUTE COUNT (BEAKER) (test iokk=675) 0.04 K/ L 0.01-0.08 IMMATURE GRANULOCYTES-RELATIVE PERCENT (BEAKER) 1 % 0-1 (test hpjf=9598) POCT-GLUCOSE [id number] 23:48:00 Test Item Value Reference Range Comments POC-GLUCOSE METER (BEAKER) 182 mg/dL 70-110 TESTED AT [address] (test lhmt=6455) [facility] [address] POCT-GLUCOSE [id number] 18:04:00 Test Item Value Reference Range Comments POC-GLUCOSE METER (BEAKER) 95 mg/dL 70-110 TESTED AT [address] (test otsq=6113) [facility] [address] HEMOGLOBIN AND [id number] 17:04:00 Test Item Value Reference Range Comments HEMOGLOBIN (BEAKER) (test ozsa=833) 8.8 GM/DL 11.2-15.7 HEMATOCRIT (BEAKER) (test ckvd=900) 27.4 % 34.1-44.9 BLOOD GAS, [id number] 15:45:00 Test Item Value Reference Range Comments PH ARTERIAL (BEAKER) (test iish=950) 7.55 7.35-7.45 PCO2 ARTERIAL (BEAKER) (test czab=334) 31 mmHg 35-45 PO2 ARTERIAL (BEAKER) (test nrmh=794) 62 mmHg 80-90 O2 SATURATION ARTERIAL (BEAKER) (test jycw=698) 94.5 % 96.0-97.0 HCO3 ARTERIAL (BEAKER) (test zhmo=562) 27 mmol/L 21-29 BASE EXCESS ARTERIAL (BEAKER) (test ulyu=586) 4.5 mmol/L -2.0-3.0 PATIENT TEMPERATURE (BEAKER) (test fdkw=9340) 37.0 C Please draw blood w/ patient on room air and sitting for at least 15 minutes prior to lab drawPOCT-GLUCOSE [id number] 11:29:00 Test Item Value Reference Range Comments POC-GLUCOSE METER (BEAKER) 205 mg/dL 70-110 TESTED AT [address] (test ymgy=3710) [place] [id number] RAD, CHEST, 1 VIEW, NON [id number] 08:46:00Reason for exam:->shortness of breathShould this be [...] MDReport Verified Date/Time: 12/14/2018 08:46:53 Reading Location: [facility] Radiology Reading Room Electronically signed by: DAPHNE BISHOP M.D. on 08:46 AMPOCT-GLUCOSE [id number] 08:21:00 Test Item Value Reference Range Comments POC-GLUCOSE METER (BEAKER) 107 mg/dL 70-110 TESTED AT [facility] [address] [facility] (test pnyl=6244) [facility] [address] HEMOGLOBIN [id number] 08:02:00 Test Item Value Reference Range Comments HEMOGLOBIN A1C (BEAKER) (test megs=840) 5.1 % 4.3-6.1 [id number] 07:51:00 Test Item Value Reference Range Comments MAGNESIUM (BEAKER) (test dfkn=610) 1.8 mg/dL 1.6-2.6 BASIC METABOLIC [id number] 07:51:00 Test Item Value Reference Range Comments SODIUM (BEAKER) (test 137 meq/L 136-145 msyb=799) POTASSIUM (BEAKER) (test 3.3 meq/L 3.5-5.1 ucwp=785) CHLORIDE (BEAKER) (test 100 meq/L 98-107 uqtu=665) CO2 (BEAKER) (test 28 meq/L 22-29 lpgl=405) BLOOD UREA NITROGEN 11 mg/dL 7-21 (BEAKER) (test iovg=390) CREATININE (BEAKER) (test 0.65 mg/dL 0.57-1.25 xhco=896) GLUCOSE RANDOM (BEAKER) 91 mg/dL 70-105 (test qafi=338) CALCIUM (BEAKER) (test 8.3 mg/dL 8.4-10.2 pxst=837) EGFR (BEAKER) (test 93 mL/min/1.73 sq m ESTIMATED GFR IS NOT kddq=7270) ACCURATE CREATININE CLEARANCE IN PREDICTING GLOMERULAR FILTRATION RATE. ESTIMATED GFR IS NOT APPLICABLE FOR DIALYSIS PATIENTS. Specimen slightly ictericHEPATIC FUNCTION [id number] 07:51:00 Test Item Value Reference Range Comments TOTAL PROTEIN (BEAKER) (test dwvd=750) 5.4 gm/dL 6.0-8.3 ALBUMIN (BEAKER) (test euvo=9962) 3.2 g/dL 3.5-5.0 BILIRUBIN TOTAL (BEAKER) (test ccue=141) 1.9 mg/dL 0.2-1.2 BILIRUBIN DIRECT (BEAKER) (test babr=743) 0.9 mg/dL 0.1-0.5 ALKALINE PHOSPHATASE (BEAKER) (test qwtm=231) 63 U/L 40-150 AST (SGOT) (BEAKER) (test hdcm=655) 40 U/L 5-34 ALT (SGPT) (BEAKER) (test bbqv=448) 48 U/L 6-55 Specimen slightly ictericCBC W/PLT COUNT & AUTO [id number] 05:44 :00 Test Item Value Reference Range Comments WHITE BLOOD CELL COUNT (BEAKER) (test iugz=894) 8.1 K/ L 3.5-10.5 RED BLOOD CELL COUNT (BEAKER) (test vbzu=655) 2.55 M/ L 3.93-5.22 HEMOGLOBIN (BEAKER) (test tgqd=861) 7.9 GM/DL 11.2-15.7 HEMATOCRIT (BEAKER) (test baal=090) 25.1 % 34.1-44.9 MEAN CORPUSCULAR VOLUME (BEAKER) (test cnjl=515) 98.4 fL 79.4-94.8 MEAN CORPUSCULAR HEMOGLOBIN (BEAKER) (test 31.0 pg 25.6-32.2 ytpr=483) MEAN CORPUSCULAR HEMOGLOBIN CONC (BEAKER) (test 31.5 GM/DL 32.2-35.5 ikox=013) RED CELL DISTRIBUTION WIDTH (BEAKER) (test 21.1 % 11.7-14.4 wrtk=950) PLATELET COUNT (BEAKER) (test jlzj=379) 81 K/CU MM 150-450 MEAN PLATELET VOLUME (BEAKER) (test nfyc=793) 12.1 fL 9.4-12.3 NUCLEATED RED BLOOD CELLS (BEAKER) (test 0 /100 WBC 0-0 wcif=258) NEUTROPHILS RELATIVE PERCENT (BEAKER) (test 55 % cycm=130) LYMPHOCYTES RELATIVE PERCENT (BEAKER) (test 28 % ylts=965) MONOCYTES RELATIVE PERCENT (BEAKER) (test 13 % zlek=329) EOSINOPHILS RELATIVE PERCENT (BEAKER) (test 3 % bhlg=049) BASOPHILS RELATIVE PERCENT (BEAKER) (test 1 % zzmw=321) NEUTROPHILS ABSOLUTE COUNT (BEAKER) (test 4.46 K/ L 1.56-6.13 ptrv=300) LYMPHOCYTES ABSOLUTE COUNT (BEAKER) (test 2.25 K/ L 1.18-3.74 lsog=376) MONOCYTES ABSOLUTE COUNT (BEAKER) (test eqvu=511) 1.09 K/ L 0.24-0.36 EOSINOPHILS ABSOLUTE COUNT (BEAKER) (test 0.22 K/ L 0.04-0.36 dqvf=117) BASOPHILS ABSOLUTE COUNT (BEAKER) (test ygaq=590) 0.06 K/ L 0.01-0.08 IMMATURE GRANULOCYTES-RELATIVE PERCENT (BEAKER) 1 % 0-1 (test elor=9385) [id number] 05:41:00 Test Item Value Reference Range Comments PROTIME (BEAKER) (test fgze=080) 18.5 seconds 11.9-14.2 INR (BEAKER) (test vggt=775) 1.6 <=5.9 PARTIAL THROMBOPLASTIN TIME (BEAKER) (test 38.0 seconds 22.5-36.0 kxge=867) Effective 10/24/2018: PT Reference Range ChangeNew: 11.9-14.2 Previous: 11.7- 14.7RECOMMENDED COUMADIN/WARFARIN INR THERAPY RANGESSTANDARD DOSE: 2.0-3.0 Includes: PROPHYLAXIS for venous thrombosis, systemic embolization; TREATMENT for venous thrombosis and/or pulmonary embolus.HIGH RISK: Target INR is2.5-3.5 for patients wiht mechanical heart valves.POCT-GLUCOSE [id number] 00:43:00 Test Item Value Reference Range Comments POC-GLUCOSE METER (BEAKER) 131 mg/dL 70-110 TESTED AT [address] (test byyy=2834) [facility] [address] POCT-GLUCOSE [id number] 17:27:00 Test Item Value Reference Range Comments POC-GLUCOSE METER (BEAKER) 133 mg/dL 70-110 TESTED AT [place] [id number] [facility] (test tqfk=4656) [facility] [address] POCT-GLUCOSE [id number] 14:27:00 Test Item Value Reference Range Comments POC-GLUCOSE METER (BEAKER) 136 mg/dL 70-110 TESTED AT [facility] [address] [facility] (test upse=8686) [facility] [address] POCT-GLUCOSE [id number] 12:53:00 Test Item Value Reference Range Comments POC-GLUCOSE METER (BEAKER) 207 mg/dL 70-110 TESTED AT [facility] [address] [facility] (test ftub=2251) [facility] [address] [id number] 07:55:00 Test Item Value Reference Range Comments PHOSPHORUS (BEAKER) (test hwhh=659) 2.9 mg/dL 2.3-4.7 [id number] 07:55:00 Test Item Value Reference Range Comments MAGNESIUM (BEAKER) (test xiie=723) 1.9 mg/dL 1.6-2.6 BASIC METABOLIC [id number] 07:55:00 Test Item Value Reference Range Comments SODIUM (BEAKER) (test 138 meq/L 136-145 zxsa=314) POTASSIUM (BEAKER) (test 3.5 meq/L 3.5-5.1 mefe=645) CHLORIDE (BEAKER) (test 103 meq/L 98-107 gbih=122) CO2 (BEAKER) (test 27 meq/L 22-29 klod=161) BLOOD UREA NITROGEN 14 mg/dL 7-21 (BEAKER) (test ggur=028) CREATININE (BEAKER) (test 0.72 mg/dL 0.57-1.25 mzsu=088) GLUCOSE RANDOM (BEAKER) 112 mg/dL 70-105 (test ljya=692) CALCIUM (BEAKER) (test 8.8 mg/dL 8.4-10.2 urok=544) EGFR (BEAKER) (test 83 mL/min/1.73 sq m ESTIMATED GFR IS NOT majy=3836) ACCURATE CREATININE CLEARANCE IN PREDICTING GLOMERULAR FILTRATION RATE. ESTIMATED GFR IS NOT APPLICABLE FOR DIALYSIS PATIENTS. Specimen slightly ictericHEPATIC FUNCTION [id number] 07:55:00 Test Item Value Reference Range Comments TOTAL PROTEIN (BEAKER) (test tfbz=302) 6.0 gm/dL 6.0-8.3 ALBUMIN (BEAKER) (test tzxg=0415) 3.6 g/dL 3.5-5.0 BILIRUBIN TOTAL (BEAKER) (test bscy=979) 2.1 mg/dL 0.2-1.2 BILIRUBIN DIRECT (BEAKER) (test bxpx=021) 1.0 mg/dL 0.1-0.5 ALKALINE PHOSPHATASE (BEAKER) (test ctrf=412) 67 U/L 40-150 AST (SGOT) (BEAKER) (test uvtc=261) 44 U/L 5-34 ALT (SGPT) (BEAKER) (test wlse=855) 64 U/L 6-55 Specimen slightly ictericPOCT-GLUCOSE [id number] 07:52:00 Test Item Value Reference Range Comments POC-GLUCOSE METER (BEAKER) 117 mg/dL 70-110 TESTED AT [facility] [address] [facility] (test yqkm=3668) [place] [address] CBC W/PLT COUNT & AUTO [id number] 06:01:00 Test Item Value Reference Range Comments WHITE BLOOD CELL COUNT (BEAKER) (test ocsn=632) 10.1 K/ L 3.5-10.5 RED BLOOD CELL COUNT (BEAKER) (test aqne=517) 2.79 M/ L 3.93-5.22 HEMOGLOBIN (BEAKER) (test jdee=425) 8.6 GM/DL 11.2-15.7 HEMATOCRIT (BEAKER) (test qvfg=187) 28.0 % 34.1-44.9 MEAN CORPUSCULAR VOLUME (BEAKER) (test zftr=259) 100.4 fL 79.4-94.8 MEAN CORPUSCULAR HEMOGLOBIN (BEAKER) (test 30.8 pg 25.6-32.2 pfyj=708) MEAN CORPUSCULAR HEMOGLOBIN CONC (BEAKER) (test 30.7 GM/DL 32.2-35.5 mphi=245) RED CELL DISTRIBUTION WIDTH (BEAKER) (test 21.1 % 11.7-14.4 zqii=037) PLATELET COUNT (BEAKER) (test ahuz=002) 89 K/CU MM 150-450 MEAN PLATELET VOLUME (BEAKER) (test qcvo=186) 11.6 fL 9.4-12.3 NUCLEATED RED BLOOD CELLS (BEAKER) (test 0 /100 WBC 0-0 dlhw=837) NEUTROPHILS RELATIVE PERCENT (BEAKER) (test 65 % gczp=816) LYMPHOCYTES RELATIVE PERCENT (BEAKER) (test 19 % yfdo=407) MONOCYTES RELATIVE PERCENT (BEAKER) (test 13 % ufus=551) EOSINOPHILS RELATIVE PERCENT (BEAKER) (test 2 % ashh=359) BASOPHILS RELATIVE PERCENT (BEAKER) (test 1 % fuhr=908) NEUTROPHILS ABSOLUTE COUNT (BEAKER) (test 6.56 K/ L 1.56-6.13 khsm=882) LYMPHOCYTES ABSOLUTE COUNT (BEAKER) (test 1.87 K/ L 1.18-3.74 xkxl=008) MONOCYTES ABSOLUTE COUNT (BEAKER) (test ufxa=442) 1.34 K/ L 0.24-0.36 EOSINOPHILS ABSOLUTE COUNT (BEAKER) (test 0.23 K/ L 0.04-0.36 flsf=079) BASOPHILS ABSOLUTE COUNT (BEAKER) (test pfeg=798) 0.06 K/ L 0.01-0.08 IMMATURE GRANULOCYTES-RELATIVE PERCENT (BEAKER) 1 % 0-1 (test eoeg=6890) [id number] 05:56:00 Test Item Value Reference Range Comments PROTIME (BEAKER) (test eduu=911) 18.7 seconds 11.9-14.2 INR (BEAKER) (test eubz=432) 1.7 <=5.9 PARTIAL THROMBOPLASTIN TIME (BEAKER) (test 39.7 seconds 22.5-36.0 rvbq=654) Effective 10/24/2018: PT Reference Range ChangeNew: 11.9-14.2 Previous: 11.7- 14.7RECOMMENDED COUMADIN/WARFARIN INR THERAPY RANGESSTANDARD DOSE: 2.0-3.0 Includes: PROPHYLAXIS for venous thrombosis, systemic embolization; TREATMENT for venous thrombosis and/or pulmonary embolus.HIGH RISK: Target INR is2.5-3.5 for patients wiht mechanical heart valves.BLOOD [id number] 02:01:00 Test Item Value Reference Range Comments CULTURE (BEAKER) (test sogf=0428) No growth in 5 days BLOOD [id number] 02:01:00 Test Item Value Reference Range Comments CULTURE (BEAKER) (test ebvs=2980) No growth in 5 days POCT-GLUCOSE [id number] 00:06:00 Test Item Value Reference Range Comments POC-GLUCOSE METER (BEAKER) 118 mg/dL 70-110 TESTED AT [address] (test popm=6026) [facility] [address] POCT-GLUCOSE [id number] 17:25:00 Test Item Value Reference Range Comments POC-GLUCOSE METER (BEAKER) 105 mg/dL 70-110 TESTED AT [facility] [address] (test gxop=5248) [facility] [address] HEMOGLOBIN AND [id number] 14:25:00 Test Item Value Reference Range Comments HEMOGLOBIN (BEAKER) (test fnfy=940) 8.9 GM/DL 11.2-15.7 HEMATOCRIT (BEAKER) (test twsg=989) 28.5 % 34.1-44.9 Contact hospitalist if Hgb <7.0RAD, ABDOMEN/KUB, 1 VIEW [id number] 14:09: 00Reason for exam:->abd distentionFINAL REPORT Abdomen [...] Verified Date/ Time: 12/12/2018 14:09:05 Reading Location: [address] Consult Reading Room RAD, CHEST, 1 VIEW, NON [id number] 14:06:00Reason for exam:->hypoxiaShould this be performed at [...] Jenkins Verified Date/Time: 12/12/2018 14:06:55 Reading Location: [facility] Consult Reading Room POCT-GLUCOSE [id number] 12:31:00 Test Item Value Reference Range Comments POC-GLUCOSE METER (BEAKER) 194 mg/dL 70-110 TESTED AT [facility] [address] [facility] (test hnvj=3998) [facility] [address] POCT-GLUCOSE [id number] 07:44:00 Test Item Value Reference Range Comments POC-GLUCOSE METER (BEAKER) 116 mg/dL 70-110 TESTED AT [facility] [address] [facility] (test wzxe=5224) [facility] [address] [id number] 06:16:00 Test Item Value Reference Range Comments PHOSPHORUS (BEAKER) (test yzww=546) 2.8 mg/dL 2.3-4.7 [id number] 06:16:00 Test Item Value Reference Range Comments MAGNESIUM (BEAKER) (test vcmu=909) 1.9 mg/dL 1.6-2.6 BASIC METABOLIC [id number] 06:16:00 Test Item Value Reference Range Comments SODIUM (BEAKER) (test 140 meq/L 136-145 qjix=522) POTASSIUM (BEAKER) (test 3.8 meq/L 3.5-5.1 bsbk=998) CHLORIDE (BEAKER) (test 106 meq/L 98-107 bapi=531) CO2 (BEAKER) (test 29 meq/L 22-29 nnob=265) BLOOD UREA NITROGEN 16 mg/dL 7-21 (BEAKER) (test ssie=996) CREATININE (BEAKER) (test 0.73 mg/dL 0.57-1.25 jloc=063) GLUCOSE RANDOM (BEAKER) 101 mg/dL 70-105 (test wefw=811) CALCIUM (BEAKER) (test 8.8 mg/dL 8.4-10.2 wqsh=464) EGFR (BEAKER) (test 81 mL/min/1.73 sq m ESTIMATED GFR IS NOT zjae=6007) ACCURATE CREATININE CLEARANCE IN PREDICTING GLOMERULAR FILTRATION RATE. ESTIMATED GFR IS NOT APPLICABLE FOR DIALYSIS PATIENTS. Specimen slightly ictericHEPATIC FUNCTION [id number] 06:16:00 Test Item Value Reference Range Comments TOTAL PROTEIN (BEAKER) (test vpgf=862) 5.5 gm/dL 6.0-8.3 ALBUMIN (BEAKER) (test vawk=2320) 3.6 g/dL 3.5-5.0 BILIRUBIN TOTAL (BEAKER) (test ubxl=927) 2.1 mg/dL 0.2-1.2 BILIRUBIN DIRECT (BEAKER) (test fllp=534) 1.0 mg/dL 0.1-0.5 ALKALINE PHOSPHATASE (BEAKER) (test ardi=376) 52 U/L 40-150 AST (SGOT) (BEAKER) (test nudk=116) 39 U/L 5-34 ALT (SGPT) (BEAKER) (test gmgu=022) 70 U/L 6-55 Specimen slightly ictericPT/[id number] 05:33:00 Test Item Value Reference Range Comments PROTIME (BEAKER) (test xgof=447) 19.9 seconds 11.9-14.2 INR (BEAKER) (test yehx=160) 1.8 <=5.9 PARTIAL THROMBOPLASTIN TIME (BEAKER) (test 38.2 seconds 22.5-36.0 xvwu=912) Effective 10/24/2018: PT Reference Range ChangeNew: 11.9-14.2 Previous: 11.7- 14.7RECOMMENDED COUMADIN/WARFARIN INR THERAPY RANGESSTANDARD DOSE: 2.0-3.0 Includes: PROPHYLAXIS for venous thrombosis, systemic embolization; TREATMENT for venous thrombosis and/or pulmonary embolus.HIGH RISK: Target INR is2.5-3.5 for patients wiht mechanical heart valves.CBC W/PLT COUNT & AUTO [id number] 05:21:00 Test Item Value Reference Range Comments WHITE BLOOD CELL COUNT (BEAKER) (test biza=397) 8.7 K/ L 3.5-10.5 RED BLOOD CELL COUNT (BEAKER) (test zaqj=669) 2.44 M/ L 3.93-5.22 HEMOGLOBIN (BEAKER) (test ruig=909) 7.5 GM/DL 11.2-15.7 HEMATOCRIT (BEAKER) (test lbpf=854) 24.5 % 34.1-44.9 MEAN CORPUSCULAR VOLUME (BEAKER) (test afzu=815) 100.4 fL 79.4-94.8 MEAN CORPUSCULAR HEMOGLOBIN (BEAKER) (test 30.7 pg 25.6-32.2 ndwy=854) MEAN CORPUSCULAR HEMOGLOBIN CONC (BEAKER) (test 30.6 GM/DL 32.2-35.5 nxyb=870) RED CELL DISTRIBUTION WIDTH (BEAKER) (test 21.3 % 11.7-14.4 uoir=995) PLATELET COUNT (BEAKER) (test ucnr=513) 83 K/CU MM 150-450 MEAN PLATELET VOLUME (BEAKER) (test jldu=471) 11.5 fL 9.4-12.3 NUCLEATED RED BLOOD CELLS (BEAKER) (test 0 /100 WBC 0-0 pvyp=020) NEUTROPHILS RELATIVE PERCENT (BEAKER) (test 52 % lidw=813) LYMPHOCYTES RELATIVE PERCENT (BEAKER) (test 27 % tike=672) MONOCYTES RELATIVE PERCENT (BEAKER) (test 16 % byno=686) EOSINOPHILS RELATIVE PERCENT (BEAKER) (test 4 % fhoh=824) BASOPHILS RELATIVE PERCENT (BEAKER) (test 1 % gnxo=842) NEUTROPHILS ABSOLUTE COUNT (BEAKER) (test 4.49 K/ L 1.56-6.13 douf=258) LYMPHOCYTES ABSOLUTE COUNT (BEAKER) (test 2.36 K/ L 1.18-3.74 rysl=284) MONOCYTES ABSOLUTE COUNT (BEAKER) (test hlaw=213) 1.41 K/ L 0.24-0.36 EOSINOPHILS ABSOLUTE COUNT (BEAKER) (test 0.34 K/ L 0.04-0.36 rgxk=361) BASOPHILS ABSOLUTE COUNT (BEAKER) (test fzaw=295) 0.05 K/ L 0.01-0.08 IMMATURE GRANULOCYTES-RELATIVE PERCENT (BEAKER) 1 % 0-1 (test ecoy=5052) POCT-GLUCOSE [id number] 00:10:00 Test Item Value Reference Range Comments POC-GLUCOSE METER (BEAKER) 127 mg/dL 70-110 TESTED AT [address] (test xpeb=9059) [facility] [id number] POCT-GLUCOSE [id number] 17:40:00 Test Item Value Reference Range Comments POC-GLUCOSE METER (BEAKER) 165 mg/dL 70-110 TESTED AT [address] (test ffbf=5225) [facility] [id number] POCT-GLUCOSE [id number] 12:35:00 Test Item Value Reference Range Comments POC-GLUCOSE METER (BEAKER) 190 mg/dL 70-110 TESTED AT [address] (test nrdb=5763) [facility] [id number] POCT-GLUCOSE [id number] 08:29:00 Test Item Value Reference Range Comments POC-GLUCOSE METER (BEAKER) 173 mg/dL 70-110 TESTED AT [facility] [address] [facility] (test faxc=2214) [facility] [id number] CBC W/PLT COUNT & AUTO [id number] 05:21:00 Test Item Value Reference Range Comments WHITE BLOOD CELL COUNT (BEAKER) (test vbdy=366) 9.4 K/ L 3.5-10.5 RED BLOOD CELL COUNT (BEAKER) (test zvrx=918) 2.86 M/ L 3.93-5.22 HEMOGLOBIN (BEAKER) (test yrrf=871) 8.9 GM/DL 11.2-15.7 HEMATOCRIT (BEAKER) (test itfy=156) 28.9 % 34.1-44.9 MEAN CORPUSCULAR VOLUME (BEAKER) (test cpaw=289) 101.0 fL 79.4-94.8 MEAN CORPUSCULAR HEMOGLOBIN (BEAKER) (test 31.1 pg 25.6-32.2 zwqu=535) MEAN CORPUSCULAR HEMOGLOBIN CONC (BEAKER) (test 30.8 GM/DL 32.2-35.5 hzto=662) RED CELL DISTRIBUTION WIDTH (BEAKER) (test 21.9 % 11.7-14.4 etoj=256) PLATELET COUNT (BEAKER) (test vami=425) 118 K/CU MM 150-450 MEAN PLATELET VOLUME (BEAKER) (test crpy=771) 11.2 fL 9.4-12.3 NUCLEATED RED BLOOD CELLS (BEAKER) (test 1 /100 WBC 0-0 msfs=383) NEUTROPHILS RELATIVE PERCENT (BEAKER) (test 55 % ybdg=555) LYMPHOCYTES RELATIVE PERCENT (BEAKER) (test 24 % jaew=171) MONOCYTES RELATIVE PERCENT (BEAKER) (test 16 % ysdg=810) EOSINOPHILS RELATIVE PERCENT (BEAKER) (test 3 % knsf=013) BASOPHILS RELATIVE PERCENT (BEAKER) (test 1 % lyay=133) NEUTROPHILS ABSOLUTE COUNT (BEAKER) (test 5.22 K/ L 1.56-6.13 vqwq=930) LYMPHOCYTES ABSOLUTE COUNT (BEAKER) (test 2.30 K/ L 1.18-3.74 tjmj=606) MONOCYTES ABSOLUTE COUNT (BEAKER) (test 1.50 K/ L 0.24-0.36 jlho=921) EOSINOPHILS ABSOLUTE COUNT (BEAKER) (test 0.30 K/ L 0.04-0.36 nrpi=721) BASOPHILS ABSOLUTE COUNT (BEAKER) (test 0.07 K/ L 0.01-0.08 vcmt=192) IMMATURE GRANULOCYTES-RELATIVE PERCENT (BEAKER) 1 % 0-1 (test oast=4454) [id number] 05:18:00 Test Item Value Reference Range Comments PHOSPHORUS (BEAKER) (test hesw=458) 2.1 mg/dL 2.3-4.7 [id number] 05:18:00 Test Item Value Reference Range Comments MAGNESIUM (BEAKER) (test frke=663) 2.2 mg/dL 1.6-2.6 BASIC METABOLIC [id number] 05:18:00 Test Item Value Reference Range Comments SODIUM (BEAKER) (test 143 meq/L 136-145 qdcp=795) POTASSIUM (BEAKER) (test 3.8 meq/L 3.5-5.1 diyy=385) CHLORIDE (BEAKER) (test 110 meq/L 98-107 urzi=283) CO2 (BEAKER) (test 27 meq/L 22-29 peoy=444) BLOOD UREA NITROGEN 19 mg/dL 7-21 (BEAKER) (test buyi=550) CREATININE (BEAKER) (test 0.75 mg/dL 0.57-1.25 djyn=251) GLUCOSE RANDOM (BEAKER) 118 mg/dL 70-105 (test pdub=680) CALCIUM (BEAKER) (test 8.8 mg/dL 8.4-10.2 ayrc=470) EGFR (BEAKER) (test 79 mL/min/1.73 sq m ESTIMATED GFR IS NOT tadb=2703) ACCURATE CREATININE CLEARANCE IN PREDICTING GLOMERULAR FILTRATION RATE. ESTIMATED GFR IS NOT APPLICABLE FOR DIALYSIS PATIENTS. HEPATIC FUNCTION [id number] 05:18:00 Test Item Value Reference Range Comments TOTAL PROTEIN (BEAKER) (test wzbp=368) 5.6 gm/dL 6.0-8.3 ALBUMIN (BEAKER) (test lzpx=8228) 3.3 g/dL 3.5-5.0 BILIRUBIN TOTAL (BEAKER) (test yxtc=783) 1.8 mg/dL 0.2-1.2 BILIRUBIN DIRECT (BEAKER) (test ghmy=845) 0.9 mg/dL 0.1-0.5 ALKALINE PHOSPHATASE (BEAKER) (test xudr=792) 69 U/L 40-150 AST (SGOT) (BEAKER) (test rvsc=019) 51 U/L 5-34 ALT (SGPT) (BEAKER) (test cejt=099) 110 U/L 6-55 [id number] 05:05:00 Test Item Value Reference Range Comments PROTIME (BEAKER) (test mshd=275) 19.4 seconds 11.9-14.2 INR (BEAKER) (test nhti=703) 1.7 <=5.9 PARTIAL THROMBOPLASTIN TIME (BEAKER) (test 35.9 seconds 22.5-36.0 ssli=637) Effective 10/24/2018: PT Reference Range ChangeNew: 11.9-14.2 Previous: 11.7- 14.7RECOMMENDED COUMADIN/WARFARIN INR THERAPY RANGESSTANDARD DOSE: 2.0-3.0 Includes: PROPHYLAXIS for venous thrombosis, systemic embolization; TREATMENT for venous thrombosis and/or pulmonary embolus.HIGH RISK: Target INR is2.5-3.5 for patients wiht mechanical heart valves.[id number] 05:05:00 Test Item Value Reference Range Comments FIBRINOGEN LEVEL (BEAKER) (test bdwz=039) 184 mg/dl 225-434 LACTIC ACID, [id number] 05:02:00 Test Item Value Reference Range Comments LACTATE BLOOD VENOUS (2) (BEAKER) (test 1.8 mmol/L 0.5-2.2 tqvf=9087) POCT-GLUCOSE [id number] 22:06:00 Test Item Value Reference Range Comments POC-GLUCOSE METER (BEAKER) 295 mg/dL 70-110 TESTED AT [address] (test oqmm=9508) [facility] [address] POCT-GLUCOSE [id number] 18:38:00 Test Item Value Reference Range Comments POC-GLUCOSE METER (BEAKER) 181 mg/dL 70-110 TESTED AT [address] (test hsct=8327) [facility] [address] BLOOD [id number] 16:53:00 Test Item Value Reference Range Comments CULTURE (BEAKER) From Anaerobic Bottle Only (test wxhy=8654) Coagulase negative Staphylococcus GRAM STAIN RESULT From anaerobic bottle (BEAKER) (test only: gram positive nxfa=6808) cocci in clusters POCT-GLUCOSE [id number] 13:01:00 Test Item Value Reference Range Comments POC-GLUCOSE METER (BEAKER) 143 mg/dL 70-110 TESTED AT [facility] [address] (test wpkk=2605) [facility] [address] RAD, ABDOMEN/KUB, 1 VIEW [id number] 08:18:00Reason for exam:->ileusFINAL REPORT INDICATION:Ileus. COMPARISON: December [...] MDReport Verified Date/Time: 12/10/2018 08:18:25 Reading Location: [facility] Diagnostic Imaging Reading Room - [place] [id number] CBC W/PLT COUNT & AUTO [id number] 07:36:00 Test Item Value Reference Range Comments WHITE BLOOD CELL COUNT (BEAKER) (test gkcu=883) 10.7 K/ L 3.5-10.5 RED BLOOD CELL COUNT (BEAKER) (test ngsu=157) 2.84 M/ L 3.93-5.22 HEMOGLOBIN (BEAKER) (test krfz=974) 8.7 GM/DL 11.2-15.7 HEMATOCRIT (BEAKER) (test rbsj=211) 28.5 % 34.1-44.9 MEAN CORPUSCULAR VOLUME (BEAKER) (test zipk=307) 100.4 fL 79.4-94.8 MEAN CORPUSCULAR HEMOGLOBIN (BEAKER) (test 30.6 pg 25.6-32.2 jzsc=053) MEAN CORPUSCULAR HEMOGLOBIN CONC (BEAKER) (test 30.5 GM/DL 32.2-35.5 nwqw=631) RED CELL DISTRIBUTION WIDTH (BEAKER) (test 22.5 % 11.7-14.4 erhh=300) PLATELET COUNT (BEAKER) (test lfkm=828) 120 K/CU MM 150-450 MEAN PLATELET VOLUME (BEAKER) (test wfdq=688) 11.5 fL 9.4-12.3 NUCLEATED RED BLOOD CELLS (BEAKER) (test 1 /100 WBC 0-0 thhe=405) (CELLAVISION MANUAL DIFF)2018-12-10 07:36:00 Test Item Value Reference Range Comments NEUTROPHILS - REL (CELLAVISION)(BEAKER) (test 81 % sjqp=0152) LYMPHOCYTES - REL (CELLAVISION)(BEAKER) (test 9 % jpta=7252) MONOCYTES - REL (CELLAVISION)(BEAKER) (test 8 % nzam=1341) EOSINOPHILS - REL (CELLAVISION)(BEAKER) (test 1 % agit=4781) BASOPHILS - REL (CELLAVISION)(BEAKER) (test 1 % fdjf=7698) NEUTROPHILS - ABS (CELLAVISION)(BEAKER) (test 8.67 K/ul 1.56-6.13 lsle=3556) LYMPHOCYTES - ABS (CELLAVISION)(BEAKER) (test 0.96 K/ul 1.18-3.74 xegz=9080) MONOCYTES - ABS (CELLAVISION)(BEAKER) (test 0.86 K/uL 0.24-0.36 pshr=0711) EOSINOPHILS - ABS (CELLAVISION)(BEAKER) (test 0.11 K/uL 0.04-0.36 wysl=5485) BASOPHILS - ABS (CELLAVISION)(BEAKER) (test 0.11 K/uL 0.01-0.08 gpjz=1616) TOTAL COUNTED (BEAKER) (test ophn=1977) 100 MANUAL NRBC PER 100 CELLS (BEAKER) (test 1 /100 WBC 0-0 xmjw=9358) WBC MORPHOLOGY (BEAKER) (test hwpw=876) Normal PLT MORPHOLOGY (BEAKER) (test uvwb=824) Normal POLYCHROMATOPHILLIC RBCS(BEAKER) (test xsbj=056) 2+ moderate HYPOCHROMIA (BEAKER) (test rrap=969) 1+ few ARTIFACT (CELLAVISION)(BEAKER) (test kien=6150) Present PLATELET CONCENTRATION (CELLAVISION)(BEAKER) Decreased (test whpq=8067) Received comment: User comments: Slide comments:[id number] 05:18:00 Test Item Value Reference Range Comments PHOSPHORUS (BEAKER) (test izmg=966) 2.5 mg/dL 2.3-4.7 [id number] 05:18:00 Test Item Value Reference Range Comments MAGNESIUM (BEAKER) (test oryy=282) 2.2 mg/dL 1.6-2.6 BASIC METABOLIC [id number] 05:18:00 Test Item Value Reference Range Comments SODIUM (BEAKER) (test 146 meq/L 136-145 bfnq=849) POTASSIUM (BEAKER) (test 3.9 meq/L 3.5-5.1 hccf=038) CHLORIDE (BEAKER) (test 113 meq/L 98-107 hpyl=290) CO2 (BEAKER) (test 26 meq/L 22-29 dbkd=127) BLOOD UREA NITROGEN 19 mg/dL 7-21 (BEAKER) (test dcsr=827) CREATININE (BEAKER) (test 0.68 mg/dL 0.57-1.25 uoig=530) GLUCOSE RANDOM (BEAKER) 119 mg/dL 70-105 (test ydff=533) CALCIUM (BEAKER) (test 8.4 mg/dL 8.4-10.2 muge=800) EGFR (BEAKER) (test 88 mL/min/1.73 sq m ESTIMATED GFR IS NOT fnqu=9129) ACCURATE CREATININE CLEARANCE IN PREDICTING GLOMERULAR FILTRATION RATE. ESTIMATED GFR IS NOT APPLICABLE FOR DIALYSIS PATIENTS. HEPATIC FUNCTION [id number] 05:18:00 Test Item Value Reference Range Comments TOTAL PROTEIN (BEAKER) (test qpou=365) 5.5 gm/dL 6.0-8.3 ALBUMIN (BEAKER) (test rgcw=5894) 3.3 g/dL 3.5-5.0 BILIRUBIN TOTAL (BEAKER) (test vuud=640) 2.0 mg/dL 0.2-1.2 BILIRUBIN DIRECT (BEAKER) (test zdxo=515) 1.0 mg/dL 0.1-0.5 ALKALINE PHOSPHATASE (BEAKER) (test fths=830) 65 U/L 40-150 AST (SGOT) (BEAKER) (test czxd=599) 52 U/L 5-34 ALT (SGPT) (BEAKER) (test hwbq=411) 136 U/L 6-55 LACTIC ACID, [id number] 05:00:00 Test Item Value Reference Range Comments LACTATE BLOOD VENOUS (2) (BEAKER) (test 2.0 mmol/L 0.5-2.2 jbjn=4720) [id number] 04:39:00 Test Item Value Reference Range Comments FIBRINOGEN LEVEL (BEAKER) (test fyqd=520) 221 mg/dl 225-434 [id number] 04:39:00 Test Item Value Reference Range Comments PROTIME (BEAKER) (test itdd=063) 17.5 seconds 11.9-14.2 INR (BEAKER) (test chyi=641) 1.5 <=5.9 PARTIAL THROMBOPLASTIN TIME (BEAKER) (test 37.8 seconds 22.5-36.0 hhbp=065) Effective 10/24/2018: PT Reference Range ChangeNew: 11.9-14.2 Previous: 11.7- 14.7RECOMMENDED COUMADIN/WARFARIN INR THERAPY RANGESSTANDARD DOSE: 2.0-3.0 Includes: PROPHYLAXIS for venous thrombosis, systemic embolization; TREATMENT for venous thrombosis and/or pulmonary embolus.HIGH RISK: Target INR is2.5-3.5 for patients wiht mechanical heart valves.U/S, ABDOMINAL, [id number] 01: 07:00Reason for exam:->ASCITES EVAL Should this [...] FLOR WILLIS MD on12/10/2018 01:07 AMPOCT- GLUCOSE [id number] 00:25:00 Test Item Value Reference Range Comments POC-GLUCOSE METER (BEAKER) 134 mg/dL 70-110 TESTED AT [address] (test dvgo=6864) [place] [address] BLOOD [id number] 20:01:00 Test Item Value Reference Range Comments CULTURE (BEAKER) (test jvnf=9815) No growth in 5 days HEMOGLOBIN AND [id number] 17:57:00 Test Item Value Reference Range Comments HEMOGLOBIN (BEAKER) (test btwc=524) 8.8 GM/DL 11.2-15.7 HEMATOCRIT (BEAKER) (test pyoc=189) 28.2 % 34.1-44.9 POCT-GLUCOSE [id number] 17:57:00 Test Item Value Reference Range Comments POC-GLUCOSE METER (BEAKER) 175 mg/dL 70-110 TESTED AT [address] (test yukj=4910) [place] [address] POCT-GLUCOSE [id number] 13:23:00 Test Item Value Reference Range Comments POC-GLUCOSE METER (BEAKER) 110 mg/dL 70-110 TESTED AT [address] (test rxrn=3644) [place] [address] CBC W/PLT COUNT & AUTO [id number] 09:54:00 Test Item Value Reference Range Comments WHITE BLOOD CELL COUNT (BEAKER) (test pwln=788) 9.9 K/ L 3.5-10.5 RED BLOOD CELL COUNT (BEAKER) (test oknm=496) 2.64 M/ L 3.93-5.22 HEMOGLOBIN (BEAKER) (test tqfg=580) 8.3 GM/DL 11.2-15.7 HEMATOCRIT (BEAKER) (test mgks=595) 26.2 % 34.1-44.9 MEAN CORPUSCULAR VOLUME (BEAKER) (test tmof=080) 99.2 fL 79.4-94.8 MEAN CORPUSCULAR HEMOGLOBIN (BEAKER) (test 31.4 pg 25.6-32.2 bjzx=183) MEAN CORPUSCULAR HEMOGLOBIN CONC (BEAKER) (test 31.7 GM/DL 32.2-35.5 bsbc=577) RED CELL DISTRIBUTION WIDTH (BEAKER) (test 22.9 % 11.7-14.4 pofk=474) PLATELET COUNT (BEAKER) (test hsop=895) 118 K/CU MM 150-450 MEAN PLATELET VOLUME (BEAKER) (test dpuz=058) 11.5 fL 9.4-12.3 NUCLEATED RED BLOOD CELLS (BEAKER) (test 1 /100 WBC 0-0 osgt=109) (CELLAVISION MANUAL DIFF)2018-12-09 09:54:00 Test Item Value Reference Range Comments NEUTROPHILS - REL (CELLAVISION)(BEAKER) (test 76 % wdyn=8501) LYMPHOCYTES - REL (CELLAVISION)(BEAKER) (test 11 % mjvr=5919) MONOCYTES - REL (CELLAVISION)(BEAKER) (test 10 % squs=7856) EOSINOPHILS - REL (CELLAVISION)(BEAKER) (test 2 % cbzv=2641) BASOPHILS - REL (CELLAVISION)(BEAKER) (test 1 % pfse=3277) NEUTROPHILS - ABS (CELLAVISION)(BEAKER) (test 7.52 K/ul 1.56-6.13 idmf=4107) LYMPHOCYTES - ABS (CELLAVISION)(BEAKER) (test 1.09 K/ul 1.18-3.74 qtfh=6944) MONOCYTES - ABS (CELLAVISION)(BEAKER) (test 0.99 K/uL 0.24-0.36 wuzd=3937) EOSINOPHILS - ABS (CELLAVISION)(BEAKER) (test 0.20 K/uL 0.04-0.36 dcld=7256) BASOPHILS - ABS (CELLAVISION)(BEAKER) (test 0.10 K/uL 0.01-0.08 kwqs=4769) TOTAL COUNTED (BEAKER) (test wxuj=9253) 100 MANUAL NRBC PER 100 CELLS (BEAKER) (test 1 /100 WBC 0-0 djcv=4326) WBC MORPHOLOGY (BEAKER) (test voet=522) Normal PLT MORPHOLOGY (BEAKER) (test yiuf=461) Normal POLYCHROMATOPHILLIC RBCS(BEAKER) (test knfh=660) 1+ few ANISOCYTOSIS (BEAKER) (test ugbn=427) 1+ few MACROCYTES (BEAKER) (test rkbt=394) 1+ few POIKILOCYTES (BEAKER) (test dgwv=890) 2+ moderate ARTIFACT (CELLAVISION)(BEAKER) (test xokr=1359) Present PLATELET CONCENTRATION (CELLAVISION)(BEAKER) Decreased (test fucg=2748) Received comment: User comments: Slide comments:RAD, ABDOMEN/KUB, 1 VIEW [id number] 07:43:00Reason for exam:->ileusFINAL REPORT ONE VIEW ABDOMEN [...] Verified Date/Time: 12/09/2018 07:43:19 Reading Location : [address] Reading Room POCT-GLUCOSE [id number] 05:30:00 Test Item Value Reference Range Comments POC-GLUCOSE METER (BEAKER) 112 mg/dL 70-110 TESTED AT [facility] [address] [facility] (test ttep=6077) [facility] [address] [id number] 05:09:00 Test Item Value Reference Range Comments MAGNESIUM (BEAKER) (test 2.1 mg/dL 1.6-2.6 Specimen slightly hemolyzed flrv=129) [id number] 05:09:00 Test Item Value Reference Range Comments PHOSPHORUS (BEAKER) (test 2.2 mg/dL 2.3-4.7 Specimen slightly hemolyzed knqp=413) BASIC METABOLIC [id number] 05:09:00 Test Item Value Reference Range Comments SODIUM (BEAKER) (test 140 meq/L 136-145 qcgn=246) POTASSIUM (BEAKER) (test 4.1 meq/L 3.5-5.1 Specimen slightly quin=222) hemolyzed CHLORIDE (BEAKER) (test 108 meq/L 98-107 jhwu=419) CO2 (BEAKER) (test 24 meq/L 22-29 eclz=036) BLOOD UREA NITROGEN 18 mg/dL 7-21 (BEAKER) (test rpdb=585) CREATININE (BEAKER) (test 0.65 mg/dL 0.57-1.25 Specimen slightly nfaf=400) hemolyzed GLUCOSE RANDOM (BEAKER) 124 mg/dL 70-105 (test hjyg=750) CALCIUM (BEAKER) (test 8.1 mg/dL 8.4-10.2 cnjg=144) EGFR (BEAKER) (test 93 mL/min/1.73 sq m ESTIMATED GFR IS NOT kpey=9973) ACCURATE CREATININE CLEARANCE IN PREDICTING GLOMERULAR FILTRATION RATE. ESTIMATED GFR IS NOT APPLICABLE FOR DIALYSIS PATIENTS. Specimen slightly ictericHEPATIC FUNCTION [id number] 05:09:00 Test Item Value Reference Range Comments TOTAL PROTEIN (BEAKER) (test 5.4 gm/dL 6.0-8.3 Specimen slightly hemolyzed zvao=798) ALBUMIN (BEAKER) (test 3.2 g/dL 3.5-5.0 Specimen slightly hemolyzed cwzw=1926) BILIRUBIN TOTAL (BEAKER) (test 2.2 mg/dL 0.2-1.2 Specimen slightly hemolyzed fbke=976) BILIRUBIN DIRECT (BEAKER) (test 0.9 mg/dL 0.1-0.5 Specimen slightly hemolyzed gpgi=799) ALKALINE PHOSPHATASE (BEAKER) 63 U/L 40-150 (test hziq=085) AST (SGOT) (BEAKER) (test 70 U/L 5-34 Specimen slightly hemolyzed xxbc=352) ALT (SGPT) (BEAKER) (test 169 U/L 6-55 Specimen slightly hemolyzed mjii=349) Specimen slightly ictericLACTIC ACID, [id number] 04:54:00 Test Item Value Reference Range Comments LACTATE BLOOD VENOUS (2) (BEAKER) (test 1.3 mmol/L 0.5-2.2 rgco=0568) Specimen slightly ictericPT/[id number] 04:45:00 Test Item Value Reference Range Comments PROTIME (BEAKER) (test wnek=162) 16.8 seconds 11.9-14.2 INR (BEAKER) (test ravu=563) 1.4 <=5.9 PARTIAL THROMBOPLASTIN TIME (BEAKER) (test 29.5 seconds 22.5-36.0 btvq=911) Effective 10/24/2018: PT Reference Range ChangeNew: 11.9-14.2 Previous: 11.7- 14.7RECOMMENDED COUMADIN/WARFARIN INR THERAPY RANGESSTANDARD DOSE: 2.0-3.0 Includes: PROPHYLAXIS for venous thrombosis, systemic embolization; TREATMENT for venous thrombosis and/or pulmonary embolus.HIGH RISK: Target INR is2.5-3.5 for patients wiht mechanical heart valves.[id number] 04:45:00 Test Item Value Reference Range Comments FIBRINOGEN LEVEL (BEAKER) (test pwew=688) 212 mg/dl 225-434 POCT-GLUCOSE [id number] 23:51:00 Test Item Value Reference Range Comments POC-GLUCOSE METER (BEAKER) 127 mg/dL 70-110 TESTED AT [facility] [address] [facility] (test dbrs=5619) [facility] [address] [id number] 18:46:00 Test Item Value Reference Range Comments PHOSPHORUS (BEAKER) (test vgea=174) 2.8 mg/dL 2.3-4.7 [id number] 18:46:00 Test Item Value Reference Range Comments MAGNESIUM (BEAKER) (test qmgn=616) 2.3 mg/dL 1.6-2.6 BASIC METABOLIC [id number] 18:46:00 Test Item Value Reference Range Comments SODIUM (BEAKER) (test 139 meq/L 136-145 ojqw=732) POTASSIUM (BEAKER) (test 4.0 meq/L 3.5-5.1 vwvt=490) CHLORIDE (BEAKER) (test 107 meq/L 98-107 mdld=125) CO2 (BEAKER) (test 24 meq/L 22-29 kizs=936) BLOOD UREA NITROGEN 19 mg/dL 7-21 (BEAKER) (test kdmi=911) CREATININE (BEAKER) (test 0.68 mg/dL 0.57-1.25 igwm=226) GLUCOSE RANDOM (BEAKER) 114 mg/dL 70-105 (test mtrn=370) CALCIUM (BEAKER) (test 8.2 mg/dL 8.4-10.2 rwwk=342) EGFR (BEAKER) (test 88 mL/min/1.73 sq m ESTIMATED GFR IS NOT iuke=8802) ACCURATE CREATININE CLEARANCE IN PREDICTING GLOMERULAR FILTRATION RATE. ESTIMATED GFR IS NOT APPLICABLE FOR DIALYSIS PATIENTS. Specimen slightly ictericPOCT-GLUCOSE [id number] 17:54:00 Test Item Value Reference Range Comments POC-GLUCOSE METER (BEAKER) 93 mg/dL 70-110 TESTED AT [address] (test pigf=5324) [place] [address] LACTIC ACID, [id number] 12:49:00 Test Item Value Reference Range Comments LACTATE BLOOD VENOUS (2) (BEAKER) (test 1.9 mmol/L 0.5-2.2 qqqv=6042) Specimen slightly ictericPOCT-GLUCOSE [id number] 12:09:00 Test Item Value Reference Range Comments POC-GLUCOSE METER (BEAKER) 142 mg/dL 70-110 TESTED AT [address] (test ddkv=4622) [place] [address] RAD, ABDOMEN/KUB, 1 VIEW [id number] 08:31:00Reason for exam:->ileusShould this be performed at [...] MDReport Verified Date/Time: 12/08/2018 08:31:46 Reading Location: [facility] C013Y CT Body Reading Room [id number] 08:02:00 Test Item Value Reference Range Comments PHOSPHORUS (BEAKER) (test kjla=408) 1.7 mg/dL 2.3-4.7 POCT-GLUCOSE [id number] 05:40:00 Test Item Value Reference Range Comments POC-GLUCOSE METER (BEAKER) 128 mg/dL 70-110 TESTED AT [address] (test mkqu=7957) [place] [address] [id number] 05:14:00 Test Item Value Reference Range Comments MAGNESIUM (BEAKER) (test gdzo=237) 2.2 mg/dL 1.6-2.6 BASIC METABOLIC [id number] 05:14:00 Test Item Value Reference Range Comments SODIUM (BEAKER) (test 141 meq/L 136-145 zkeu=132) POTASSIUM (BEAKER) (test 4.0 meq/L 3.5-5.1 mrio=022) CHLORIDE (BEAKER) (test 109 meq/L 98-107 fmcj=843) CO2 (BEAKER) (test 25 meq/L 22-29 jcdu=696) BLOOD UREA NITROGEN 21 mg/dL 7-21 (BEAKER) (test xuzb=532) CREATININE (BEAKER) (test 0.66 mg/dL 0.57-1.25 prwo=585) GLUCOSE RANDOM (BEAKER) 118 mg/dL 70-105 (test zjtq=455) CALCIUM (BEAKER) (test 8.3 mg/dL 8.4-10.2 yylb=509) EGFR (BEAKER) (test 91 mL/min/1.73 sq m ESTIMATED GFR IS NOT dmbn=4787) ACCURATE CREATININE CLEARANCE IN PREDICTING GLOMERULAR FILTRATION RATE. ESTIMATED GFR IS NOT APPLICABLE FOR DIALYSIS PATIENTS. Specimen slightly ictericHEPATIC FUNCTION [id number] 05:14:00 Test Item Value Reference Range Comments TOTAL PROTEIN (BEAKER) (test jeep=843) 5.4 gm/dL 6.0-8.3 ALBUMIN (BEAKER) (test ojsj=6048) 3.4 g/dL 3.5-5.0 BILIRUBIN TOTAL (BEAKER) (test gkhx=668) 2.4 mg/dL 0.2-1.2 BILIRUBIN DIRECT (BEAKER) (test vqty=490) 1.0 mg/dL 0.1-0.5 ALKALINE PHOSPHATASE (BEAKER) (test hrgz=766) 65 U/L 40-150 AST (SGOT) (BEAKER) (test vpvo=851) 94 U/L 5-34 ALT (SGPT) (BEAKER) (test kfum=121) 229 U/L 6-55 Specimen slightly [id number] 05:09:00 Test Item Value Reference Range Comments FIBRINOGEN LEVEL (BEAKER) (test vzbq=016) 223 mg/dl 225-434 [id number] 05:09:00 Test Item Value Reference Range Comments PROTIME (BEAKER) (test epoj=535) 16.4 seconds 11.9-14.2 INR (BEAKER) (test qjbh=732) 1.4 <=5.9 PARTIAL THROMBOPLASTIN TIME (BEAKER) (test 32.1 seconds 22.5-36.0 ifef=967) Effective 10/24/2018: PT Reference Range ChangeNew: 11.9-14.2 Previous: 11.7- 14.7RECOMMENDED COUMADIN/WARFARIN INR THERAPY RANGESSTANDARD DOSE: 2.0-3.0 Includes: PROPHYLAXIS for venous thrombosis, systemic embolization; TREATMENT for venous thrombosis and/or pulmonary embolus.HIGH RISK: Target INR is2.5-3.5 for patients wiht mechanical heart valves.CBC W/PLT COUNT & AUTO [id number] 04:41:00 Test Item Value Reference Range Comments WHITE BLOOD CELL COUNT (BEAKER) (test yfmo=557) 10.2 K/ L 3.5-10.5 RED BLOOD CELL COUNT (BEAKER) (test dkiz=254) 2.63 M/ L 3.93-5.22 HEMOGLOBIN (BEAKER) (test cuyw=824) 8.3 GM/DL 11.2-15.7 HEMATOCRIT (BEAKER) (test vddj=043) 26.1 % 34.1-44.9 MEAN CORPUSCULAR VOLUME (BEAKER) (test mtan=310) 99.2 fL 79.4-94.8 MEAN CORPUSCULAR HEMOGLOBIN (BEAKER) (test 31.6 pg 25.6-32.2 qbgx=957) MEAN CORPUSCULAR HEMOGLOBIN CONC (BEAKER) (test 31.8 GM/DL 32.2-35.5 amrb=400) RED CELL DISTRIBUTION WIDTH (BEAKER) (test 23.0 % 11.7-14.4 jwis=833) PLATELET COUNT (BEAKER) (test oino=212) 106 K/CU MM 150-450 MEAN PLATELET VOLUME (BEAKER) (test hrjp=928) 11.6 fL 9.4-12.3 NUCLEATED RED BLOOD CELLS (BEAKER) (test 2 /100 WBC 0-0 sjiv=854) NEUTROPHILS RELATIVE PERCENT (BEAKER) (test 53 % quka=169) LYMPHOCYTES RELATIVE PERCENT (BEAKER) (test 26 % ffuj=456) MONOCYTES RELATIVE PERCENT (BEAKER) (test 17 % gtwg=111) EOSINOPHILS RELATIVE PERCENT (BEAKER) (test 2 % jhwj=430) BASOPHILS RELATIVE PERCENT (BEAKER) (test 0 % ikbf=897) NEUTROPHILS ABSOLUTE COUNT (BEAKER) (test 5.44 K/ L 1.56-6.13 bffa=199) LYMPHOCYTES ABSOLUTE COUNT (BEAKER) (test 2.68 K/ L 1.18-3.74 ukdl=189) MONOCYTES ABSOLUTE COUNT (BEAKER) (test 1.78 K/ L 0.24-0.36 gvxj=895) EOSINOPHILS ABSOLUTE COUNT (BEAKER) (test 0.21 K/ L 0.04-0.36 kjzt=238) BASOPHILS ABSOLUTE COUNT (BEAKER) (test 0.03 K/ L 0.01-0.08 mvnd=027) IMMATURE GRANULOCYTES-RELATIVE PERCENT (BEAKER) 1 % 0-1 (test sfui=9768) HEMOGLOBIN AND [id number] 04:38:00 Test Item Value Reference Range Comments HEMOGLOBIN (BEAKER) (test kxny=581) 8.3 GM/DL 11.2-15.7 HEMATOCRIT (BEAKER) (test hatm=148) 26.1 % 34.1-44.9 POCT-GLUCOSE [id number] 00:02:00 Test Item Value Reference Range Comments POC-GLUCOSE METER (BEAKER) 125 mg/dL 70-110 TESTED AT [facility] [address] [place] [address] (test bsrp=1505) [facility] [address] [id number] 23:12:00 Test Item Value Reference Range Comments POTASSIUM (BEAKER) (test otyp=054) 5.1 meq/L 3.5-5.1 [id number] 23:12:00 Test Item Value Reference Range Comments MAGNESIUM (BEAKER) (test hrzq=934) 2.3 mg/dL 1.6-2.6 HEMOGLOBIN AND [id number] 22:46:00 Test Item Value Reference Range Comments HEMOGLOBIN (BEAKER) (test wlek=290) 7.8 GM/DL 11.2-15.7 HEMATOCRIT (BEAKER) (test hosl=722) 23.9 % 34.1-44.9 BLOOD CULTURE IDENTIFICATION [id number] 20:39:00 Test Item Value Reference Range Comments LISTERIA MONOCYTOGENES (test Not detected Not detected eaqw=[id number]) STAPHYLOCOCCUS (test Detected Not detected Coagulase negative Staph pbft=7592735) species (CoNS)- methicillin susceptibleFirst-line therapy: Cefazolin or Oxacillin (Oxacillin preferred if FIELD AUDITOR involvement) MecA NOT DETECTEDPossible contamination. The likelihood of pathogenicity is increased if the organism is observed in multiple blood cultures obtained from separate venipunctures.Reference Range: Not Detected STAPHYLOCOCCUS AUREUS (test Not detected Not detected qxoq=5894520) STREPTOCOCCUS (test Not detected Not detected xxzy=6795257) STREPTOCOCCUS AGALACTIAE Not detected Not detected (GROUP B) (test gsle=7084132) STREPTOCOCCUS PNEUMONIAE Not detected Not detected (test mrvs=5700693) STREPTOCOCCUS PYOGENES (GROUP Not detected Not detected A) (test igev=6958943) ACINETOBACTER BAUMANNII (test Not detected Not detected gnob=2595854) HAEMOPHILUS INFLUENZAE (test Not detected Not detected qpkd=6205451) NEISSERIA MENINGITIDIS (test Not detected Not detected rxfe=6078621) ENTEROBACTERIACEAE (test Not detected Not detected eegx=3922522) ENTEROBACTER CLOACOE COMPLEX Not detected Not detected (test szeu=6708947) KLEBSIELLA OXYTOCA (test Not detected Not detected sriz=6191427) KLEBSIELLA PNEUMONIAE (test Not detected Not detected pref=5185) PROTEUS (test ylwr=6783375) Not detected Not detected SERRATIA MARCESCENS (test Not detected Not detected cyqh=8466038) LINDA ALBICANS (test Not detected Not detected xmjf=5841150) LINDA GLABRATA (test Not detected Not detected cnft=7928186) LINDA KRUSEI (test Not detected Not detected sydu=2078370) LINDA PARAPSILOSIS (test Not detected Not detected obzl=0608804) LINDA TROPICALIS (test Not detected Not detected sthz=7740911) ESCHERICHIA COLI (test Not detected Not detected iypa=4976202) METHICILLIN-RESISTANCE GENE Not detected Not detected (test nhfl=7148272) VANCOMYCIN-RESISTANCE GENE Not detected (test ptcu=0277500) CARBAPENEM-RESISTANCE GENE Not detected (test yaiq=7044955) ENTEROCOCCUS-BEAKER (test Not detected Not detected symg=0184602) PSEUDOMONAS AERUGINOSA-BEAKER Not detected Not detected (test srgx=2058980) Other bacteria and resistance markers not targeted by this PCR panel cannot be excluded; therefore clinical correlation and follow up of serology, culture results, and other molecular studies is required. The results are not intended to be used as the sole means for clinical diagnosis or patient management decisions. This sample was tested at the [facility] using the Bio[employer] FilmArray Blood Culture ID Panel. It is FDA cleared and has been verified and approved by the [facility] for clinical use. This laboratory is CLIA-certified and College ofAmerican [employer]ologists (CAP)-accredited to perform high complexity testing.POCT-GLUCOSE [id number] 18:12:00 Test Item Value Reference Range Comments POC-GLUCOSE METER (BEAKER) 146 mg/dL 70-110 TESTED AT [facility] [address] (test xpdp=1013) [facility] [address] LACTIC ACID, [id number] 15:57:00 Test Item Value Reference Range Comments LACTATE BLOOD VENOUS (2) (BEAKER) (test 2.2 mmol/L 0.5-2.2 bcdy=2373) Specimen slightly ictericHEMOGLOBIN AND [id number] 15:42:00 Test Item Value Reference Range Comments HEMOGLOBIN (BEAKER) (test ojsn=097) 8.3 GM/DL 11.2-15.7 HEMATOCRIT (BEAKER) (test jtsh=227) 25.0 % 34.1-44.9 RAD, ABDOMEN/KUB, 1 VIEW [id number] 15:11:00Reason for exam:->suspected ileusShould this be performed [...] [place] Verified Date/Time: 12/07/2018 15:11:34 Reading Location: [facility] Reading Room Electronically signed by: JULIA STERN MD on 2018 03:11 [id number] 12:18:00 Test Item Value Reference Range Comments PROCALCITONIN (BEAKER) (test ydza=0896) 0.09 ng/mL <0.05 SEPSIS RISK (ng/mL)Low: 0.05-0.50Intermediate: 0.51-2.00High: & gt;=2.01POCT-GLUCOSE [id number] 12:08:00 Test Item Value Reference Range Comments POC-GLUCOSE METER (BEAKER) 128 mg/dL 70-110 TESTED AT [address] (test azuu=7109) [place] [id number] LACTIC ACID, [id number] 11:54:00 Test Item Value Reference Range Comments LACTATE BLOOD VENOUS (2) (BEAKER) (test 1.7 mmol/L 0.5-2.2 chfe=8370) POCT-GLUCOSE [id number] 09:43:00 Test Item Value Reference Range Comments POC-GLUCOSE METER (BEAKER) 142 mg/dL 70-110 TESTED AT [address] (test jqeq=5322) [place] [id number] POCT-GLUCOSE [id number] 09:41:00 Test Item Value Reference Range Comments POC-GLUCOSE METER (BEAKER) 147 mg/dL 70-110 TESTED AT [address] (test pwkr=0851) [place] [address] POCT-GLUCOSE [id number] 09:38:00 Test Item Value Reference Range Comments POC-GLUCOSE METER (BEAKER) 149 mg/dL 70-110 TESTED AT [address] (test mkgb=5861) [place] [id number] POCT-GLUCOSE [id number] 09:38:00 Test Item Value Reference Range Comments POC-GLUCOSE METER (BEAKER) 147 mg/dL 70-110 TESTED AT [address] (test bvvn=4733) [place] [id number] VANCOMYCIN LEVEL, [id number] 09:37:00 Test Item Value Reference Range Comments VANCOMYCIN TROUGH (BEAKER) (test dpcz=706) 10.5 ug/mL 10.0-20.0 POCT-GLUCOSE [id number] 09:35:00 Test Item Value Reference Range Comments POC-GLUCOSE METER (BEAKER) 161 mg/dL 70-110 TESTED AT [address] (test mhao=8577) [place] [id number] HEMOGLOBIN AND [id number] 09:18:00 Test Item Value Reference Range Comments HEMOGLOBIN (BEAKER) (test juig=328) 9.3 GM/DL 11.2-15.7 HEMATOCRIT (BEAKER) (test ohof=140) 28.0 % 34.1-44.9 RAD, CHEST, 1 VIEW, NON [id number] 09:12:00Reason for exam:->Picc line placementShould this be [...] Verified Date/ Time: 12/07/2018 09:12:03 Reading Location: [facility] Reading Room RAD , ABDOMEN/KUB, 1 VIEW [id number] 04:39:00Reason for exam:->Concern for SBO vs Ileus [...] Goldman MDReportVerified Date/Time: 12/07/2018 04:39:54 Reading Location: [address] Reading Room [id number] 04:12:00 Test Item Value Reference Range Comments PHOSPHORUS (BEAKER) (test ibis=211) 3.5 mg/dL 2.3-4.7 [id number] 04:12:00 Test Item Value Reference Range Comments MAGNESIUM (BEAKER) (test xvvn=784) 1.8 mg/dL 1.6-2.6 BASIC METABOLIC [id number] 04:12:00 Test Item Value Reference Range Comments SODIUM (BEAKER) (test 141 meq/L 136-145 gcms=496) POTASSIUM (BEAKER) (test 3.5 meq/L 3.5-5.1 rivf=131) CHLORIDE (BEAKER) (test 109 meq/L 98-107 ccza=238) CO2 (BEAKER) (test 21 meq/L 22-29 opym=445) BLOOD UREA NITROGEN 27 mg/dL 7-21 (BEAKER) (test mirc=517) CREATININE (BEAKER) (test 0.77 mg/dL 0.57-1.25 qbyo=028) GLUCOSE RANDOM (BEAKER) 144 mg/dL 70-105 (test pyjm=645) CALCIUM (BEAKER) (test 8.6 mg/dL 8.4-10.2 ionk=826) EGFR (BEAKER) (test 76 mL/min/1.73 sq m ESTIMATED GFR IS NOT bhfu=4049) ACCURATE CREATININE CLEARANCE IN PREDICTING GLOMERULAR FILTRATION RATE. ESTIMATED GFR IS NOT APPLICABLE FOR DIALYSIS PATIENTS. Specimen slightly ictericHEPATIC FUNCTION [id number] 04:12:00 Test Item Value Reference Range Comments TOTAL PROTEIN (BEAKER) (test yums=104) 5.9 gm/dL 6.0-8.3 ALBUMIN (BEAKER) (test fqhc=7654) 3.4 g/dL 3.5-5.0 BILIRUBIN TOTAL (BEAKER) (test ewwn=659) 2.3 mg/dL 0.2-1.2 BILIRUBIN DIRECT (BEAKER) (test qihy=969) 1.0 mg/dL 0.1-0.5 ALKALINE PHOSPHATASE (BEAKER) (test eqmv=103) 78 U/L 40-150 AST (SGOT) (BEAKER) (test lwcn=779) 204 U/L 5-34 ALT (SGPT) (BEAKER) (test axfg=388) 392 U/L 6-55 Specimen slightly ictericLACTIC ACID, [id number] 03:49:00 Test Item Value Reference Range Comments LACTATE BLOOD VENOUS (2) 2.3 mmol/L 0.5-2.2 Specimen slightly hemolyzed (BEAKER) (test ftnz=6904) Specimen slightly ictericPT/[id number] 03:47:00 Test Item Value Reference Range Comments PROTIME (BEAKER) (test wuzq=764) 16.3 seconds 11.9-14.2 INR (BEAKER) (test zncg=480) 1.4 <=5.9 PARTIAL THROMBOPLASTIN TIME (BEAKER) (test 25.9 seconds 22.5-36.0 ykzq=225) Effective 10/24/2018: PT Reference Range ChangeNew: 11.9-14.2 Previous: 11.7- 14.7RECOMMENDED COUMADIN/WARFARIN INR THERAPY RANGESSTANDARD DOSE: 2.0-3.0 Includes: PROPHYLAXIS for venous thrombosis, systemic embolization; TREATMENT for venous thrombosis and/or pulmonary embolus.HIGH RISK: Target INR is2.5-3.5 for patients wiht mechanical heart valves.[id number] 03:47:00 Test Item Value Reference Range Comments FIBRINOGEN LEVEL (BEAKER) (test inuc=025) 252 mg/dl 225-434 CBC W/PLT COUNT & AUTO [id number] 03:43:00 Test Item Value Reference Range Comments WHITE BLOOD CELL COUNT (BEAKER) (test uvio=266) 14.3 K/ L 3.5-10.5 RED BLOOD CELL COUNT (BEAKER) (test hyxi=541) 3.04 M/ L 3.93-5.22 HEMOGLOBIN (BEAKER) (test rnwr=812) 9.6 GM/DL 11.2-15.7 HEMATOCRIT (BEAKER) (test tknu=354) 28.9 % 34.1-44.9 MEAN CORPUSCULAR VOLUME (BEAKER) (test crcp=687) 95.1 fL 79.4-94.8 MEAN CORPUSCULAR HEMOGLOBIN (BEAKER) (test 31.6 pg 25.6-32.2 eplq=028) MEAN CORPUSCULAR HEMOGLOBIN CONC (BEAKER) (test 33.2 GM/DL 32.2-35.5 wgoi=885) RED CELL DISTRIBUTION WIDTH (BEAKER) (test 22.7 % 11.7-14.4 kkxr=152) PLATELET COUNT (BEAKER) (test fkug=069) 133 K/CU MM 150-450 MEAN PLATELET VOLUME (BEAKER) (test gxga=055) 12.0 fL 9.4-12.3 NUCLEATED RED BLOOD CELLS (BEAKER) (test 3 /100 WBC 0-0 eyxe=721) NEUTROPHILS RELATIVE PERCENT (BEAKER) (test 67 % dkym=104) LYMPHOCYTES RELATIVE PERCENT (BEAKER) (test 17 % dvnu=180) MONOCYTES RELATIVE PERCENT (BEAKER) (test 15 % jmnm=067) EOSINOPHILS RELATIVE PERCENT (BEAKER) (test 0 % ucko=973) BASOPHILS RELATIVE PERCENT (BEAKER) (test 0 % pumd=824) NEUTROPHILS ABSOLUTE COUNT (BEAKER) (test 9.64 K/ L 1.56-6.13 uinn=526) LYMPHOCYTES ABSOLUTE COUNT (BEAKER) (test 2.41 K/ L 1.18-3.74 psem=193) MONOCYTES ABSOLUTE COUNT (BEAKER) (test 2.13 K/ L 0.24-0.36 meif=484) EOSINOPHILS ABSOLUTE COUNT (BEAKER) (test 0.01 K/ L 0.04-0.36 ayfw=119) BASOPHILS ABSOLUTE COUNT (BEAKER) (test 0.06 K/ L 0.01-0.08 hmgy=839) IMMATURE GRANULOCYTES-RELATIVE PERCENT (BEAKER) 1 % 0-1 (test zdua=2153) BLOOD GAS, [id number] 00:47:00 Test Item Value Reference Range Comments PH VENOUS (BEAKER) (test oian=699) 7.44 7.32-7.42 PCO2 VENOUS (BEAKER) (test dpls=445) 36 mmHg 41-51 PO2 VENOUS (BEAKER) (test zgcq=801) 43 mmHg 25-40 O2 SATURATION VENOUS (BEAKER) (test qyrf=198) 81.3 % 40.0-70.0 HCO3 VENOUS (BEAKER) (test purm=741) 24 mmol/L 21-29 BASE EXCESS VENOUS (BEAKER) (test hdxu=799) -0.2 mmol/L -2.0-3.0 PATIENT TEMPERATURE (BEAKER) (test vwok=3242) 36.7 C FIO2 (BEAKER) (test fhrh=8985) 21.0 % HEMOGLOBIN AND [id number] 00:36:00 Test Item Value Reference Range Comments HEMOGLOBIN (BEAKER) (test wzvy=411) 9.7 GM/DL 11.2-15.7 HEMATOCRIT (BEAKER) (test lhwj=850) 29.0 % 34.1-44.9 CT, [id number] 00:24:00FINAL REPORT EXAM: CT of the abdomen [...] 12/07/2018 00:24:22 12:24 AMRAD, ABDOMEN/KUB, 1 VIEW [id number] 18: 47:00Reason for exam:->abdominal distensionShould this be [...] Macey PhippsortVerified Date/Time: 12/06/2018 18:47:51 Reading Location: [address] Reading Room Electronically signed by: MACEY PHIPPS MD on 12/06 06:47 [id number] 18:17:00 Test Item Value Reference Range Comments PHOSPHORUS (BEAKER) (test 3.0 mg/dL 2.3-4.7 Specimen slightly hemolyzed rccx=485) BASIC METABOLIC [id number] 18:17:00 Test Item Value Reference Range Comments SODIUM (BEAKER) (test 142 meq/L 136-145 kdul=153) POTASSIUM (BEAKER) (test 3.3 meq/L 3.5-5.1 Specimen slightly yfxf=960) hemolyzed CHLORIDE (BEAKER) (test 112 meq/L 98-107 nrhg=003) CO2 (BEAKER) (test 20 meq/L 22-29 jdgg=675) BLOOD UREA NITROGEN 25 mg/dL 7-21 (BEAKER) (test pudc=389) CREATININE (BEAKER) (test 0.73 mg/dL 0.57-1.25 Specimen slightly bwrw=591) hemolyzed GLUCOSE RANDOM (BEAKER) 150 mg/dL 70-105 (test ntjz=813) CALCIUM (BEAKER) (test 8.2 mg/dL 8.4-10.2 xyop=286) EGFR (BEAKER) (test 81 mL/min/1.73 sq m ESTIMATED GFR IS NOT ulhs=7674) ACCURATE CREATININE CLEARANCE IN PREDICTING GLOMERULAR FILTRATION RATE. ESTIMATED GFR IS NOT APPLICABLE FOR DIALYSIS PATIENTS. RAD, CHEST, 1 VIEW, NON [id number] 18:15:00Reason for exam:->shortness of breathShould this be [...] Phipps MDReportVerified Date/Time: 12/06/2018 18:15:51 Reading Location: [address] Reading Room Electronically signed by: MACEY PHIPPS MD on 12/06 06:15 PMCBC W/PLT COUNT & AUTO [id number] 18:00:00 Test Item Value Reference Range Comments WHITE BLOOD CELL COUNT (BEAKER) (test sxjn=318) 12.6 K/ L 3.5-10.5 RED BLOOD CELL COUNT (BEAKER) (test vlmk=134) 2.95 M/ L 3.93-5.22 HEMOGLOBIN (BEAKER) (test tihk=469) 9.3 GM/DL 11.2-15.7 HEMATOCRIT (BEAKER) (test hirf=399) 28.1 % 34.1-44.9 MEAN CORPUSCULAR VOLUME (BEAKER) (test qvmd=423) 95.3 fL 79.4-94.8 MEAN CORPUSCULAR HEMOGLOBIN (BEAKER) (test 31.5 pg 25.6-32.2 ifjd=783) MEAN CORPUSCULAR HEMOGLOBIN CONC (BEAKER) (test 33.1 GM/DL 32.2-35.5 ndjb=509) RED CELL DISTRIBUTION WIDTH (BEAKER) (test 23.1 % 11.7-14.4 ypwv=983) PLATELET COUNT (BEAKER) (test cmxb=204) 126 K/CU MM 150-450 MEAN PLATELET VOLUME (BEAKER) (test pixj=650) 11.5 fL 9.4-12.3 NUCLEATED RED BLOOD CELLS (BEAKER) (test 3 /100 WBC 0-0 tixz=125) (CELLAVISION MANUAL DIFF)2018-12-06 18:00:00 Test Item Value Reference Range Comments NEUTROPHILS - REL (CELLAVISION)(BEAKER) (test 75 % hvku=8501) LYMPHOCYTES - REL (CELLAVISION)(BEAKER) (test 15 % qoqj=9410) MONOCYTES - REL (CELLAVISION)(BEAKER) (test 7 % zbgo=3347) BASOPHILS - REL (CELLAVISION)(BEAKER) (test 1 % jklu=6888) BANDS - REL (CELLAVISION)(BEAKER) (test 2 % 0-10 hrgj=6516) NEUTROPHILS - ABS (CELLAVISION)(BEAKER) (test 9.45 K/ul 1.56-6.13 dfdg=8796) LYMPHOCYTES - ABS (CELLAVISION)(BEAKER) (test 1.89 K/ul 1.18-3.74 zeod=5425) MONOCYTES - ABS (CELLAVISION)(BEAKER) (test 0.88 K/uL 0.24-0.36 pjjv=1997) BASOPHILS - ABS (CELLAVISION)(BEAKER) (test 0.13 K/uL 0.01-0.08 bujo=1662) BANDS - ABS (CELLAVISION)(BEAKER) (test 0.25 K/uL 0.00-0.80 memq=2646) TOTAL COUNTED (BEAKER) (test upcq=6669) 100 MANUAL NRBC PER 100 CELLS (BEAKER) (test 3 /100 WBC 0-0 phex=3822) SMUDGE CELLS (BEAKER) (test ovca=8068) Present GIANT PLATELETS (BEAKER) (test clww=878) Present POLYCHROMATOPHILLIC RBCS(BEAKER) (test uhjr=693) 1+ few ANISOCYTOSIS (BEAKER) (test oazd=479) 2+ moderate MICROCYTES (BEAKER) (test qplv=331) 2+ moderate POIKILOCYTES (BEAKER) (test pijz=328) 1+ few ELLIPTOCYTES (BEAKER) (test lopw=495) 1+ few ARTIFACT (CELLAVISION)(BEAKER) (test vaif=5531) Present PLATELET CONCENTRATION (CELLAVISION)(BEAKER) Decreased (test ltgm=4156) Received comment: User comments: Slide comments:HEMOGLOBIN AND [id number] 17:32:00 Test Item Value Reference Range Comments HEMOGLOBIN (BEAKER) (test bief=469) 9.3 GM/DL 11.2-15.7 HEMATOCRIT (BEAKER) (test rrrq=667) 28.1 % 34.1-44.9 ANTI-NUCLEAR ANTIBODY (SATNAM)2018-12-06 10:40:00 Test Item Value Reference Range Comments ANTI-NUCLEAR ANTIBODY (SATNAM) (BEAKER) (test Negative Negative zrhl=104) Test performed by IFA method.Test performed by IFA method.LACTIC ACID, [id number] 09:53:00 Test Item Value Reference Range Comments LACTATE BLOOD VENOUS (2) (BEAKER) (test 1.6 mmol/L 0.5-2.2 shgm=3783) [id number] 09:48:00 Test Item Value Reference Range Comments AMMONIA (BEAKER) (test kyxq=911) 54 mol/L 18-72 POCT-GLUCOSE [id number] 06:27:00 Test Item Value Reference Range Comments POC-GLUCOSE METER (BEAKER) 181 mg/dL 70-110 TESTED AT [facility] [address] [facility] (test lokk=9460) [facility] [address] [id number] 04:38:00 Test Item Value Reference Range Comments PHOSPHORUS (BEAKER) (test 1.4 mg/dL 2.3-4.7 Specimen slightly hemolyzed okcd=326) [id number] 04:33:00 Test Item Value Reference Range Comments MAGNESIUM (BEAKER) (test 1.9 mg/dL 1.6-2.6 Specimen slightly hemolyzed xjws=687) BASIC METABOLIC [id number] 04:33:00 Test Item Value Reference Range Comments SODIUM (BEAKER) (test 146 meq/L 136-145 stke=077) POTASSIUM (BEAKER) (test 3.4 meq/L 3.5-5.1 Specimen slightly kzmi=080) hemolyzed CHLORIDE (BEAKER) (test 116 meq/L 98-107 sata=063) CO2 (BEAKER) (test 21 meq/L 22-29 agti=930) BLOOD UREA NITROGEN 29 mg/dL 7-21 (BEAKER) (test xjmh=209) CREATININE (BEAKER) (test 0.73 mg/dL 0.57-1.25 Specimen slightly kbuk=475) hemolyzed GLUCOSE RANDOM (BEAKER) 226 mg/dL 70-105 (test eezl=787) CALCIUM (BEAKER) (test 8.0 mg/dL 8.4-10.2 bsjt=349) EGFR (BEAKER) (test 81 mL/min/1.73 sq m ESTIMATED GFR IS NOT abio=7348) ACCURATE CREATININE CLEARANCE IN PREDICTING GLOMERULAR FILTRATION RATE. ESTIMATED GFR IS NOT APPLICABLE FOR DIALYSIS PATIENTS. HEPATIC FUNCTION [id number] 04:33:00 Test Item Value Reference Range Comments TOTAL PROTEIN (BEAKER) (test 5.2 gm/dL 6.0-8.3 Specimen slightly hemolyzed dlqb=464) ALBUMIN (BEAKER) (test 3.0 g/dL 3.5-5.0 Specimen slightly hemolyzed ijtx=9438) BILIRUBIN TOTAL (BEAKER) (test 1.4 mg/dL 0.2-1.2 Specimen slightly hemolyzed uqhr=750) BILIRUBIN DIRECT (BEAKER) (test 0.5 mg/dL 0.1-0.5 Specimen slightly hemolyzed ooob=564) ALKALINE PHOSPHATASE (BEAKER) 55 U/L 40-150 (test bcow=784) AST (SGOT) (BEAKER) (test 282 U/L 5-34 Specimen slightly hemolyzed fpkc=440) ALT (SGPT) (BEAKER) (test 443 U/L 6-55 Specimen slightly hemolyzed mzfc=086) CBC W/PLT COUNT & AUTO [id number] 04:30:00 Test Item Value Reference Range Comments WHITE BLOOD CELL COUNT (BEAKER) (test mgum=511) 12.3 K/ L 3.5-10.5 RED BLOOD CELL COUNT (BEAKER) (test vcvg=724) 2.78 M/ L 3.93-5.22 HEMOGLOBIN (BEAKER) (test bjgi=773) 8.7 GM/DL 11.2-15.7 HEMATOCRIT (BEAKER) (test sllw=277) 27.3 % 34.1-44.9 MEAN CORPUSCULAR VOLUME (BEAKER) (test jfdr=760) 98.2 fL 79.4-94.8 MEAN CORPUSCULAR HEMOGLOBIN (BEAKER) (test 31.3 pg 25.6-32.2 jqvo=101) MEAN CORPUSCULAR HEMOGLOBIN CONC (BEAKER) (test 31.9 GM/DL 32.2-35.5 etce=544) RED CELL DISTRIBUTION WIDTH (BEAKER) (test 22.3 % 11.7-14.4 ikge=310) PLATELET COUNT (BEAKER) (test dwsb=788) 112 K/CU MM 150-450 MEAN PLATELET VOLUME (BEAKER) (test qsqt=722) 11.9 fL 9.4-12.3 NUCLEATED RED BLOOD CELLS (BEAKER) (test 2 /100 WBC 0-0 syci=630) NEUTROPHILS RELATIVE PERCENT (BEAKER) (test 61 % hjom=641) LYMPHOCYTES RELATIVE PERCENT (BEAKER) (test 24 % qxgg=170) MONOCYTES RELATIVE PERCENT (BEAKER) (test 12 % udbk=550) EOSINOPHILS RELATIVE PERCENT (BEAKER) (test 2 % lfil=763) BASOPHILS RELATIVE PERCENT (BEAKER) (test 1 % vlbl=963) NEUTROPHILS ABSOLUTE COUNT (BEAKER) (test 7.52 K/ L 1.56-6.13 jkfw=366) LYMPHOCYTES ABSOLUTE COUNT (BEAKER) (test 2.97 K/ L 1.18-3.74 qqiv=816) MONOCYTES ABSOLUTE COUNT (BEAKER) (test 1.44 K/ L 0.24-0.36 thom=152) EOSINOPHILS ABSOLUTE COUNT (BEAKER) (test 0.20 K/ L 0.04-0.36 xhxe=338) BASOPHILS ABSOLUTE COUNT (BEAKER) (test 0.06 K/ L 0.01-0.08 hbli=859) IMMATURE GRANULOCYTES-RELATIVE PERCENT (BEAKER) 1 % 0-1 (test kbvj=6630) [id number] 04:29:00 Test Item Value Reference Range Comments PROTIME (BEAKER) (test jkix=664) 16.8 seconds 11.9-14.2 INR (BEAKER) (test lfag=790) 1.4 <=5.9 PARTIAL THROMBOPLASTIN TIME (BEAKER) (test 27.0 seconds 22.5-36.0 halh=011) Effective 10/24/2018: PT Reference Range ChangeNew: 11.9-14.2 Previous: 11.7- 14.7RECOMMENDED COUMADIN/WARFARIN INR THERAPY RANGESSTANDARD DOSE: 2.0-3.0 Includes: PROPHYLAXIS for venous thrombosis, systemic embolization; TREATMENT for venous thrombosis and/or pulmonary embolus.HIGH RISK: Target INR is2.5-3.5 for patients wiht mechanical heart valves.[id number] 04:29:00 Test Item Value Reference Range Comments FIBRINOGEN LEVEL (BEAKER) (test gwru=674) 218 mg/dl 225-434 POCT-GLUCOSE [id number] 00:18:00 Test Item Value Reference Range Comments POC-GLUCOSE METER (BEAKER) 153 mg/dL 70-110 TESTED AT [address] (test ouyu=7105) [place] [id number] HEMOGLOBIN AND [id number] 00:17:00 Test Item Value Reference Range Comments HEMOGLOBIN (BEAKER) (test vkfp=758) 9.1 GM/DL 11.2-15.7 HEMATOCRIT (BEAKER) (test ysbl=467) 27.7 % 34.1-44.9 POCT-GLUCOSE [id number] 18:00:00 Test Item Value Reference Range Comments POC-GLUCOSE METER (BEAKER) 177 mg/dL 70-110 TESTED AT [address] (test jjbe=2650) [facility] [address] BASIC METABOLIC [id number] 13:48:00 Test Item Value Reference Range Comments SODIUM (BEAKER) (test 148 meq/L 136-145 rmft=069) POTASSIUM (BEAKER) (test 3.4 meq/L 3.5-5.1 gohe=740) CHLORIDE (BEAKER) (test 119 meq/L 98-107 snmd=407) CO2 (BEAKER) (test 25 meq/L 22-29 veeb=322) BLOOD UREA NITROGEN 36 mg/dL 7-21 (BEAKER) (test ozby=746) CREATININE (BEAKER) (test 0.73 mg/dL 0.57-1.25 xuqq=934) GLUCOSE RANDOM (BEAKER) 165 mg/dL 70-105 (test pvya=323) CALCIUM (BEAKER) (test 7.8 mg/dL 8.4-10.2 yxpl=807) EGFR (BEAKER) (test 81 mL/min/1.73 sq m ESTIMATED GFR IS NOT gmqw=6839) ACCURATE CREATININE CLEARANCE IN PREDICTING GLOMERULAR FILTRATION RATE. ESTIMATED GFR IS NOT APPLICABLE FOR DIALYSIS PATIENTS. [id number] 13:45:00 Test Item Value Reference Range Comments PHOSPHORUS (BEAKER) (test corz=776) 2.1 mg/dL 2.3-4.7 HEMOGLOBIN AND [id number] 13:30:00 Test Item Value Reference Range Comments HEMOGLOBIN (BEAKER) (test gcgt=906) 6.9 GM/DL 11.2-15.7 HEMATOCRIT (BEAKER) (test yuid=761) 21.5 % 34.1-44.9 POCT-GLUCOSE [id number] 12:17:00 Test Item Value Reference Range Comments POC-GLUCOSE METER (BEAKER) 179 mg/dL 70-110 TESTED AT [facility] [address] [facility] (test aqja=3876) [facility] [address] CBC W/PLT COUNT & AUTO [id number] 10:50:00 Test Item Value Reference Range Comments WHITE BLOOD CELL COUNT (BEAKER) (test fzfd=154) 14.7 K/ L 3.5-10.5 RED BLOOD CELL COUNT (BEAKER) (test uorz=477) 2.30 M/ L 3.93-5.22 HEMOGLOBIN (BEAKER) (test yvhf=682) 7.4 GM/DL 11.2-15.7 HEMATOCRIT (BEAKER) (test khqi=982) 22.5 % 34.1-44.9 MEAN CORPUSCULAR VOLUME (BEAKER) (test hwvr=593) 97.8 fL 79.4-94.8 MEAN CORPUSCULAR HEMOGLOBIN (BEAKER) (test 32.2 pg 25.6-32.2 hoad=399) MEAN CORPUSCULAR HEMOGLOBIN CONC (BEAKER) (test 32.9 GM/DL 32.2-35.5 yxbv=152) RED CELL DISTRIBUTION WIDTH (BEAKER) (test 22.2 % 11.7-14.4 proo=516) PLATELET COUNT (BEAKER) (test oloa=728) 120 K/CU MM 150-450 MEAN PLATELET VOLUME (BEAKER) (test cuxf=581) 11.9 fL 9.4-12.3 NUCLEATED RED BLOOD CELLS (BEAKER) (test 2 /100 WBC 0-0 tzda=294) (CELLAVISION MANUAL DIFF)2018-12-05 10:50:00 Test Item Value Reference Range Comments NEUTROPHILS - REL (CELLAVISION)(BEAKER) (test 77 % mvzt=2043) LYMPHOCYTES - REL (CELLAVISION)(BEAKER) (test 15 % dmvf=9771) MONOCYTES - REL (CELLAVISION)(BEAKER) (test 8 % nlvd=3002) BANDS - REL (CELLAVISION)(BEAKER) (test 1 % 0-10 lplx=3159) NEUTROPHILS - ABS (CELLAVISION)(BEAKER) (test 11.32 K/ul 1.56-6.13 nago=2096) LYMPHOCYTES - ABS (CELLAVISION)(BEAKER) (test 2.21 K/ul 1.18-3.74 bksv=2172) MONOCYTES - ABS (CELLAVISION)(BEAKER) (test 1.18 K/uL 0.24-0.36 pklg=5862) BANDS - ABS (CELLAVISION)(BEAKER) (test 0.15 K/uL 0.00-0.80 aidm=4922) TOTAL COUNTED (BEAKER) (test ldat=2195) 100 MANUAL NRBC PER 100 CELLS (BEAKER) (test 3 /100 WBC 0-0 qmbw=5952) WBC MORPHOLOGY (BEAKER) (test pabp=735) Normal PLT MORPHOLOGY (BEAKER) (test nazh=096) Normal POLYCHROMATOPHILLIC RBCS(BEAKER) (test icfb=788) 1+ few MICROCYTES (BEAKER) (test apkb=281) 1+ few MACROCYTES (BEAKER) (test cuzf=950) 1+ few OVALOCYTES (BEAKER) (test fefb=148) 1+ few ARTIFACT (CELLAVISION)(BEAKER) (test ksbq=9959) Present PLATELET CONCENTRATION (CELLAVISION)(BEAKER) Decreased (test phkf=5340) Received comment: User comments: Slide comments:POCT-GLUCOSE [id number] 06: 14:00 Test Item Value Reference Range Comments POC-GLUCOSE METER (BEAKER) 173 mg/dL 70-110 TESTED AT [facility] [address] [facility] (test gjrk=3006) [facility] [address] U/S, ABDOMINAL, WITH [id number] 05:32:00Reason for exam:->evaluate portal vein, evaluate biliary [...] MDReport Verified Date/Time: 12/05/2018 05:32:17 BASIC METABOLIC [id number] 04:35:00 Test Item Value Reference Range Comments SODIUM (BEAKER) (test 150 meq/L 136-145 ycrf=493) POTASSIUM (BEAKER) (test 3.6 meq/L 3.5-5.1 uzkt=042) CHLORIDE (BEAKER) (test 121 meq/L 98-107 orra=604) CO2 (BEAKER) (test 20 meq/L 22-29 msjy=545) BLOOD UREA NITROGEN 38 mg/dL 7-21 (BEAKER) (test fqoj=616) CREATININE (BEAKER) (test 0.73 mg/dL 0.57-1.25 hvrh=320) GLUCOSE RANDOM (BEAKER) 162 mg/dL 70-105 (test suig=933) CALCIUM (BEAKER) (test 8.2 mg/dL 8.4-10.2 pasp=947) EGFR (BEAKER) (test 81 mL/min/1.73 sq m ESTIMATED GFR IS NOT pjrn=4721) ACCURATE CREATININE CLEARANCE IN PREDICTING GLOMERULAR FILTRATION RATE. ESTIMATED GFR IS NOT APPLICABLE FOR DIALYSIS PATIENTS. [id number] 04:34:00 Test Item Value Reference Range Comments PHOSPHORUS (BEAKER) (test nhhx=581) 2.0 mg/dL 2.3-4.7 [id number] 04:34:00 Test Item Value Reference Range Comments MAGNESIUM (BEAKER) (test axka=949) 2.1 mg/dL 1.6-2.6 HEPATIC FUNCTION [id number] 04:34:00 Test Item Value Reference Range Comments TOTAL PROTEIN (BEAKER) (test igyc=341) 4.9 gm/dL 6.0-8.3 ALBUMIN (BEAKER) (test lixk=8119) 3.0 g/dL 3.5-5.0 BILIRUBIN TOTAL (BEAKER) (test dwvn=668) 0.9 mg/dL 0.2-1.2 BILIRUBIN DIRECT (BEAKER) (test umfi=380) 0.5 mg/dL 0.1-0.5 ALKALINE PHOSPHATASE (BEAKER) (test gqgy=527) 50 U/L 40-150 AST (SGOT) (BEAKER) (test lanc=963) 505 U/L 5-34 ALT (SGPT) (BEAKER) (test ispc=689) 549 U/L 6-55 [id number] 04:15:00 Test Item Value Reference Range Comments AMMONIA (BEAKER) (test oxqr=018) 97 mol/L 18-72 LACTIC ACID, [id number] 04:10:00 Test Item Value Reference Range Comments LACTATE BLOOD VENOUS (2) (BEAKER) (test 2.6 mmol/L 0.5-2.2 qfvd=5411) [id number] 03:54:00 Test Item Value Reference Range Comments PROTIME (BEAKER) (test kfpi=436) 19.2 seconds 11.9-14.2 INR (BEAKER) (test xfet=842) 1.7 <=5.9 PARTIAL THROMBOPLASTIN TIME (BEAKER) (test 31.6 seconds 22.5-36.0 dbge=638) Effective 10/24/2018: PT Reference Range ChangeNew: 11.9-14.2 Previous: 11.7- 14.7RECOMMENDED COUMADIN/WARFARIN INR THERAPY RANGESSTANDARD DOSE: 2.0-3.0 Includes: PROPHYLAXIS for venous thrombosis, systemic embolization; TREATMENT for venous thrombosis and/or pulmonary embolus.HIGH RISK: Target INR is2.5-3.5 for patients wiht mechanical heart valves.[id number] 03:54:00 Test Item Value Reference Range Comments FIBRINOGEN LEVEL (BEAKER) (test buhp=185) 188 mg/dl 225-434 POCT-GLUCOSE [id number] 00:17:00 Test Item Value Reference Range Comments POC-GLUCOSE METER (BEAKER) 185 mg/dL 70-110 TESTED AT [facility] [address] (test yepy=9056) [place] [address] HEMOGLOBIN AND [id number] 21:43:00 Test Item Value Reference Range Comments HEMOGLOBIN (BEAKER) (test wcus=380) 8.1 GM/DL 11.2-15.7 HEMATOCRIT (BEAKER) (test rtxc=303) 24.3 % 34.1-44.9 [id number] 19:32:00 Test Item Value Reference Range Comments FERRITIN (BEAKER) (test qrff=420) 2039 ng/mL 5-275 T4, [id number] 18:58:00 Test Item Value Reference Range Comments FREE T4 (BEAKER) (test uefg=567) 0.91 ng/dL 0.70-1.48 (CELLAVISION MANUAL DIFF)[id number] 18:52:00 Test Item Value Reference Range Comments NEUTROPHILS - REL (CELLAVISION)(BEAKER) (test 79 % tpqw=4260) LYMPHOCYTES - REL (CELLAVISION)(BEAKER) (test 15 % bgvu=4871) MONOCYTES - REL (CELLAVISION)(BEAKER) (test 4 % xntg=6396) BANDS - REL (CELLAVISION)(BEAKER) (test 1 % 0-10 wxij=1654) NEUTROPHILS - ABS (CELLAVISION)(BEAKER) (test 14.38 K/ul 1.56-6.13 hhlj=3301) LYMPHOCYTES - ABS (CELLAVISION)(BEAKER) (test 2.73 K/ul 1.18-3.74 qlea=8805) MONOCYTES - ABS (CELLAVISION)(BEAKER) (test 0.73 K/uL 0.24-0.36 aelg=9280) BANDS - ABS (CELLAVISION)(BEAKER) (test 0.18 K/uL 0.00-0.80 elrb=4501) TOTAL COUNTED (BEAKER) (test lywy=2206) 100 MANUAL NRBC PER 100 CELLS (BEAKER) (test 3 /100 WBC 0-0 wxwk=7700) SMUDGE CELLS (BEAKER) (test uyve=6784) Present GIANT PLATELETS (BEAKER) (test sdct=852) Present PLASMACYTOID LYMPHS(BEAKER) (test pomx=5708) Present POLYCHROMATOPHILLIC RBCS(BEAKER) (test mzau=192) 1+ few ANISOCYTOSIS (BEAKER) (test ertb=353) 1+ few MACROCYTES (BEAKER) (test egmr=154) 1+ few POIKILOCYTES (BEAKER) (test cnpq=609) 1+ few OVALOCYTES (BEAKER) (test eeve=240) 1+ few ARTIFACT (CELLAVISION)(BEAKER) (test pqui=9082) Present HELMET CELLS (CELLAVISION)(BEAKER) (test 1+ few yvoj=6872) PLATELET CONCENTRATION (CELLAVISION)(BEAKER) Adequate (test rxrs=8994) Received comment: User comments: Slide comments:[id number] 18:41:00 Test Item Value Reference Range Comments PROCALCITONIN (BEAKER) (test pxse=8240) 0.20 ng/mL <0.05 SEPSIS RISK (ng/mL)Low: 0.05-0.50Intermediate: 0.51-2.00High: & gt;=2.01HEPATITIS A ANTIBODY, [id number] 18:27:00 Test Item Value Reference Range Comments HEPATITIS A IGG ANTIBODY (BEAKER) (test guwc=3847) Reactive Nonreactive HEPATITIS B SURFACE [id number] 18:26:00 Test Item Value Reference Range Comments HEPATITIS B SURFACE ANTIBODY (BEAKER) (test < mIU/mL <8.0 ocsb=152) TSH/FREE T4 IF [id number] 18:26:00 Test Item Value Reference Range Comments THYROID STIMULATING HORMONE (BEAKER) (test 0.08 uIU/mL 0.35-4.94 dsce=034) ALPHA FETOPROTEIN (AFP), TUMOR [id number] 18:26:00 Test Item Value Reference Range Comments ALPHA-FETOPROTEIN (BEAKER) (test bwed=8364) 2.2 ng/mL <10.0 HEPATITIS A ANTIBODY, [id number] 18:26:00 Test Item Value Reference Range Comments HEPATITIS A IGM ANTIBODY (BEAKER) (test Nonreactive Nonreactive stvu=241) HEPATITIS B CORE ANTIBODY, [id number] 18:26:00 Test Item Value Reference Range Comments HEPATITIS B CORE TOTAL ANTIBODY (BEAKER) (test Nonreactive Nonreactive ekpt=236) HEPATITIS B SURFACE [id number] 18:23:00 Test Item Value Reference Range Comments HEPATITIS B SURFACE ANTIGEN (2) (BEAKER) (test Nonreactive Nonreactive shkv=2330) HEPATITIS C [id number] 18:23:00 Test Item Value Reference Range Comments HEPATITIS C ANTIBODY (BEAKER) (test gwmc=303) Nonreactive Nonreactive RAD, CHEST, 1 VIEW, NON [id number] 18:18:00Reason for exam:->hypoxemiaIs the patient ?->NoShould this [...] MDReport Verified Date/Time: 12/04/2018 18:18:54 Reading Location: [address] Consult Reading Room CBC W/PLT COUNT & AUTO [id number] 18:17:00 Test Item Value Reference Range Comments WHITE BLOOD CELL COUNT (BEAKER) (test zylh=704) 18.2 K/ L 3.5-10.5 RED BLOOD CELL COUNT (BEAKER) (test yyko=872) 2.70 M/ L 3.93-5.22 HEMOGLOBIN (BEAKER) (test vztf=141) 8.5 GM/DL 11.2-15.7 HEMATOCRIT (BEAKER) (test nzia=459) 26.1 % 34.1-44.9 MEAN CORPUSCULAR VOLUME (BEAKER) (test yyhs=582) 96.7 fL 79.4-94.8 MEAN CORPUSCULAR HEMOGLOBIN (BEAKER) (test 31.5 pg 25.6-32.2 igqh=012) MEAN CORPUSCULAR HEMOGLOBIN CONC (BEAKER) (test 32.6 GM/DL 32.2-35.5 hhsp=850) RED CELL DISTRIBUTION WIDTH (BEAKER) (test 22.2 % 11.7-14.4 kshy=705) PLATELET COUNT (BEAKER) (test fezo=452) 158 K/CU MM 150-450 MEAN PLATELET VOLUME (BEAKER) (test gata=691) 11.4 fL 9.4-12.3 NUCLEATED RED BLOOD CELLS (BEAKER) (test 1 /100 WBC 0-0 sjel=521) NEUTROPHILS RELATIVE PERCENT (BEAKER) (test 71 % ricp=164) LYMPHOCYTES RELATIVE PERCENT (BEAKER) (test 18 % omtj=952) MONOCYTES RELATIVE PERCENT (BEAKER) (test 10 % ojam=843) EOSINOPHILS RELATIVE PERCENT (BEAKER) (test 0 % jsek=428) BASOPHILS RELATIVE PERCENT (BEAKER) (test 0 % csju=419) NEUTROPHILS ABSOLUTE COUNT (BEAKER) (test 12.85 K/ L 1.56-6.13 ezpv=934) LYMPHOCYTES ABSOLUTE COUNT (BEAKER) (test 3.35 K/ L 1.18-3.74 iaal=186) MONOCYTES ABSOLUTE COUNT (BEAKER) (test 1.74 K/ L 0.24-0.36 sqyy=165) EOSINOPHILS ABSOLUTE COUNT (BEAKER) (test 0.01 K/ L 0.04-0.36 renz=962) BASOPHILS ABSOLUTE COUNT (BEAKER) (test 0.08 K/ L 0.01-0.08 csga=933) IMMATURE GRANULOCYTES-RELATIVE PERCENT (BEAKER) 1 % 0-1 (test srvq=4976) B-TYPE NATRIURETIC FACTOR (BNP)2018-12-04 18:10:00 Test Item Value Reference Range Comments B-TYPE NATRIURETIC PEPTIDE (BEAKER) (test 155 pg/mL 0-100 bgzb=896) COMPREHENSIVE METABOLIC [id number] 18:08:00 Test Item Value Reference Range Comments TOTAL PROTEIN (BEAKER) 5.5 gm/dL 6.0-8.3 (test mkds=200) ALBUMIN (BEAKER) (test 3.3 g/dL 3.5-5.0 dlax=4525) ALKALINE PHOSPHATASE 55 U/L 40-150 (BEAKER) (test rser=131) BILIRUBIN TOTAL (BEAKER) 1.1 mg/dL 0.2-1.2 (test vcfa=140) SODIUM (BEAKER) (test 150 meq/L 136-145 qfdb=248) POTASSIUM (BEAKER) (test 3.5 meq/L 3.5-5.1 ntdp=400) CHLORIDE (BEAKER) (test 122 meq/L 98-107 ljdm=059) CO2 (BEAKER) (test 18 meq/L 22-29 mubc=611) BLOOD UREA NITROGEN 38 mg/dL 7-21 (BEAKER) (test gxqx=178) CREATININE (BEAKER) (test 0.78 mg/dL 0.57-1.25 lsop=526) GLUCOSE RANDOM (BEAKER) 168 mg/dL 70-105 (test qoxo=325) CALCIUM (BEAKER) (test 8.5 mg/dL 8.4-10.2 frmz=622) AST (SGOT) (BEAKER) (test 825 U/L 5-34 ouqs=768) ALT (SGPT) (BEAKER) (test 712 U/L 6-55 tttr=545) EGFR (BEAKER) (test 75 mL/min/1.73 sq m ESTIMATED GFR IS NOT fsee=5392) ACCURATE CREATININE CLEARANCE IN PREDICTING GLOMERULAR FILTRATION RATE. ESTIMATED GFR IS NOT APPLICABLE FOR DIALYSIS PATIENTS. [id number] 18:07:00 Test Item Value Reference Range Comments PHOSPHORUS (BEAKER) (test bnzf=157) 2.2 mg/dL 2.3-4.7 [id number] 18:07:00 Test Item Value Reference Range Comments MAGNESIUM (BEAKER) (test gomm=026) 2.0 mg/dL 1.6-2.6 CHLORIDE, RANDOM [id number] 18:03:00 Test Item Value Reference Range Comments CHLORIDE URINE (BEAKER) (test oybn=713) 58 meq/L Reference Range: No NormalsCREATININE, RANDOM [id number] 18:03:00 Test Item Value Reference Range Comments CREATININE URINE (BEAKER) (test vbjg=645) 90.3 mg/dL Reference Range: No NormalsPROTEIN, RANDOM [id number] 18:03:00 Test Item Value Reference Range Comments PROTEIN, URINE (BEAKER) (test ssen=8731) 17 mg/dL 0-14 SODIUM, RANDOM [id number] 18:03:00 Test Item Value Reference Range Comments SODIUM URINE (BEAKER) (test ihzl=049) < meq/L Reference Range: No [id number] 18:02:00 Test Item Value Reference Range Comments ALPHA-1 ANTITRYPSIN (BEAKER) (test ftbj=648) 156.80 mg/dL 90.00-200.00 IRON, TIBC, % SAT. (WITHOUT FERRITIN)2018-12-04 18:02:00 Test Item Value Reference Range Comments IRON (BEAKER) (test fowz=256) 140.0 ug/dL 40.0-160.0 TOTAL IRON BINDING CAPACITY (BEAKER) (test 258 ug/dL 250-450 uzaw=302) IRON % SATURATION (2) (BEAKER) (test gcli=6693) 54 % 20-55 RAD, ABDOMEN/KUB, 1 VIEW [id number] 18:00:00Reason for exam:->abdominal distentionShould this be performed [...] MDReport Verified Date/Time: 12/04/2018 18:00:28 Reading Location: [address] Consult Reading Room LACTIC ACID, [id number] 17:59:00 Test Item Value Reference Range Comments LACTATE BLOOD VENOUS (2) 5.4 mmol/L 0.5-2.2 Specimen slightly hemolyzed (BEAKER) (test cczi=6320) [id number] 17:58:00 Test Item Value Reference Range Comments AMMONIA (BEAKER) (test tysu=728) 121 mol/L 18-72 URINALYSIS W/ REFLEX URINE [id number] 17:57:00 Test Item Value Reference Range Comments COLOR (BEAKER) (test nxei=823) Yellow CLARITY (BEAKER) (test xjto=801) Clear SPECIFIC GRAVITY UA (BEAKER) (test wgvk=120) 1.022 1.001-1.035 PH UA (BEAKER) (test vuew=859) 6.0 5.0-8.0 PROTEIN UA (BEAKER) (test qgol=264) 10 mg/dL Negative GLUCOSE UA (BEAKER) (test hguh=229) Negative Negative KETONES UA (BEAKER) (test gopc=955) Negative Negative BILIRUBIN UA (BEAKER) (test hsxb=462) Negative Negative BLOOD UA (BEAKER) (test mokb=551) Moderate Negative NITRITE UA (BEAKER) (test egxt=938) Negative Negative LEUKOCYTE ESTERASE UA (BEAKER) (test sevb=363) Small Negative UROBILINOGEN UA (BEAKER) (test ghor=160) 0.2 mg/dL 0.2-1.0 RBC UA (BEAKER) (test judb=118) 23 /HPF WBC UA (BEAKER) (test tdah=915) 16 /HPF MUCUS (BEAKER) (test jqme=9409) Rare SOURCE(BEAKER) (test usry=4285) [id number] 17:57:00 Test Item Value Reference Range Comments PROTIME (BEAKER) (test gomr=959) 19.5 seconds 11.9-14.2 INR (BEAKER) (test waaz=583) 1.7 <=5.9 PARTIAL THROMBOPLASTIN TIME (BEAKER) (test 29.0 seconds 22.5-36.0 oeyu=343) Effective 10/24/2018: PT Reference Range ChangeNew: 11.9-14.2 Previous: 11.7- 14.7RECOMMENDED COUMADIN/WARFARIN INR THERAPY RANGESSTANDARD DOSE: 2.0-3.0 Includes: PROPHYLAXIS for venous thrombosis, systemic embolization; TREATMENT for venous thrombosis and/or pulmonary embolus.HIGH RISK: Target INR is2.5-3.5 for patients wiht mechanical heart valves.[id number] 17:57:00 Test Item Value Reference Range Comments FIBRINOGEN LEVEL (BEAKER) (test qbtl=648) 224 mg/dl 225-434 BLOOD GAS, [id number] 17:46:00 Test Item Value Reference Range Comments PH ARTERIAL (BEAKER) (test lroo=556) 7.46 7.35-7.45 PCO2 ARTERIAL (BEAKER) (test xbfx=301) 27 mmHg 35-45 PO2 ARTERIAL (BEAKER) (test twzi=576) 83 mmHg 80-90 O2 SATURATION ARTERIAL (BEAKER) (test njol=013) 97.0 % 96.0-97.0 HCO3 ARTERIAL (BEAKER) (test ytcu=919) 19 mmol/L 21-29 BASE EXCESS ARTERIAL (BEAKER) (test rqxz=251) -4.3 mmol/L -2.0-3.0 PATIENT TEMPERATURE (BEAKER) (test aefu=7246) 36.7 C FIO2 (BEAKER) (test ygco=0444) 40.0 %
[2019-04-19] MEDS ORDERED: Ringers Lactate 1,000 ML IV ONE (12:42)
[2019-04-19] MEDS ORDERED: ONDANSETRON 4 MG/2 ML VIAL ONE (12:47)
[2019-04-19] MEDS ORDERED: PROPOFOL 200 MG/20 ML VIAL IV ONE (13:36)
[2019-04-19] MEDS ORDERED: LIDOCAINE 1% MPF 5 ML VIAL ONE (13:36)
[2019-04-19] MEDS ORDERED: EPHEDRINE SULF 50 MG/ML VIAL ONE (14:43)
[2019-04-19] MEDS ORDERED: PROMETHAZINE 25 MG/ML VIAL ONE ×2 (14:54→15:10)
--- NOTE | 2019-04-19 14:58 | ENDO RPT ---
[address], [address] EGD PROCEDURE REPORT EXAM DATE: 04/19/2019 PATIENT NAME: Kaitlyn Sesay MR#: [id number] BIRTHDATE: 1960 ATTENDING: Riley Lacy Dr STATUS: outpatient DRY TRANSFER WORKER: Svetlana Ng, Lawrence Rodriguez RN, and Jesica Hurley RN INDICATIONS: The patient is a 59 yr old Female here for an EGD due to surveillance, melenic bleeding, and dysphagia PROCEDURE PERFORMED: EGD with banding MEDICATIONS: Per Anesthesia. TOPICAL ANESTHETIC: none CONSENT: The patient understands the risks and benefits of the procedure and understands that these risks include, but are not limited to: sedation, allergic reaction, infection, perforation and/or bleeding. Alternative means of evaluation and treatment include, among others: physical exam, x-rays, and/or surgical intervention. The patient elects to proceed with this endoscopic procedure. DESCRIPTION OF PROCEDURE: During intra-op preparation period all mechanical medical equipment was checked for proper function. Hand hygiene and appropriate measures for infection prevention was taken. Procedure, possible complications, and alternatives including but not limited to the possibility of bleeding, perforation, tear, infection, sepsis, need for surgery, need for blood transfusion, and anesthesia related complications were explained to the patient. After the risks, benefits and alternatives of the procedure were thoroughly explained, Informed consent was verified, confirmed and timeout was successfully executed by the treatment team. The patient was placed in the left lateral position. The patient was anesthetized with topical anesthesia. Through the anesthetized oropharyngeal area, the scope was passed without any difficulty. The Pentax [id number] ([id number]) endoscope was introduced through the mouth and advanced to the second portion of the duodenum. Retroflexed views revealed a small hiatal hernia. The gastroscope was then slowly withdrawn and removed. 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 Esophageal banding X 4 were performed. A small hiatal hernia was found Portal hypertensive gastropathy was found in the body of the stomach. ADVERSE EVENTS: There were no complications. IMPRESSIONS: 1. 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 Small hiatal hernia 3. Portal hypertensive gastropathy in the body of the stomach RECOMMENDATIONS: 1. check CBC, PT/PTT 2. ER warnings given 3. colonoscopy and consider imaging REPEAT EXAM: Return in 2 week(s) for EGD. Riley Lacy Dr eSigned: Riley Lacy Dr 04/19/2019 2:57 PM cc: Sita Whyte CPT CODES: ICD9 CODES: PATIENT NAME: Kaitlyn Sesay MR#: [id number]
[2019-04-19] MEDS ORDERED: MEPERIDINE HCL 25 MG/0.5 ML ONE (15:09)
[2019-04-19] MEDS ORDERED: METOCLOPRAMIDE 10 MG/2mL INJ ONE (15:31)
[2019-04-19] MEDS ORDERED: HYDROMORPHONE HCL 1 MG/ML INJ ONE (15:34)
[2019-04-19 15:40] LABS: Protime INR 1.34
[2019-04-19 15:42] LABS: Absolute Lymphocytes (CBC) 1.3 K/uL (0.7-4.9); Basophils % 0.8 % (0-1.3); Hematocrit 23.5 % (36.0-45.0); Lymphocytes % 26.3 % (15.3-44.8); RBC Red Blood Cell Count 2.73 M/uL (3.86-4.86)
[2019-04-19] MEDS ORDERED: METRONIDAZOLE 500mg IVPB 500 MG/100 ML BAG IV ONE ×2 (15:54→16:00)
[2019-04-19] MEDS ORDERED: Levofloxacin500mg IV 500 MG/100 ML BAG IV ONE ×2 (15:54→16:00)
[2019-04-19] MEDS ORDERED: CEFTRIAXONE/SWI 2gm 2 GM/20 ML SYR IVP ONE (16:00)
[2019-04-19 16:09] LABS: Anisocytosis 3+; Blood Morphology Comment NOTED (NOT SEEN); Platelet Estimate ADEQ; Urine White Blood Cell Casts OK
[2019-04-19 16:10] LABS: Hypochromasia 1+; Target Cells 1+
[2019-04-19 16:57] VITALS: O2SAT 93
[2019-04-19 17:03] VITALS: BP 115/65; TEMP 97.8
[2019-04-21 09:46] LABS: Hematocrit 26.5 % (36.0-45.0)
== END 2019-04-19 17:15 | disposition home or self-care (01) ==
LOC: OR 12:15
PROVIDERS: ATTEND Internal Medicine Gastroenterology
PROC: 06L38CZ Occlusion of Esophageal Vein with Extraluminal Device, Via Natural or Artificial Opening Endoscopic (ICD-10-PCS; principal; 2019-04-19 14:00)
DX: I85.00 Esophageal varices without bleeding (principal); R13.10 Dysphagia, unspecified; K76.6 Portal hypertension; K31.89 Other diseases of stomach and duodenum; K44.9 Diaphragmatic hernia without obstruction or gangrene; I10 Essential (primary) hypertension; E07.9 Disorder of thyroid, unspecified; M19.90 Unspecified osteoarthritis, unspecified site; F17.200 Nicotine dependence, unspecified, uncomplicated; Z80.0 Family history of malignant neoplasm of digestive organs; Z83.79 Family history of other diseases of the digestive system; Z82.49 Family history of ischemic heart disease and other diseases of the circulatory system
CPT/HCPCS: 85025; 80048; 36415; 86900; 86850; 85610; 86901; 85730; 43244; J2704; J2765; J2550 ×2; J2175; J1170; J7120; J2405; J0696

== ENCOUNTER 2019-04-22 16:46 | Inpatient (IN) | payer OTHER ==
--- OUTSIDE RECORDS SUMMARY | 2019-04-22 16:51 | XMS REPORT ---
:1960 [facility] Address [address] [place] [address] Care Team Providers Name Role Phone DONAVON MISTRY Unavailable Unavailable YRN PORTILLO Unavailable Unavailable Problems This patient has no known problems. Allergies, Adverse Reactions, Alerts This patient has no known allergies or adverse reactions. Medications This patient has no known medications. 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 Small bowel NOSB. Gastric [...] Immunohistochemistry technical testing was performed at [facility], Pathology Laboratory where it was developed and [...] (BEAKER) (test 207 mg/dL 70-110 TESTED AT [facility] [address] [place] [address] viip=[id number]) [facility] [address] POCT-GLUCOSE [id number] 08:03:00 Test Item Value Reference Range Comments POC-GLUCOSE METER (BEAKER) 117 mg/dL 70-110 TESTED AT [address] (test fxdt=0782) [place] [address] [id number] 06:09:00 Test Item Value Reference Range Comments MAGNESIUM (BEAKER) (test sofj=086) 1.9 mg/dL 1.6-2.6 BASIC METABOLIC [id number] 06:09:00 Test Item Value Reference Range Comments SODIUM (BEAKER) (test 136 meq/L 136-145 apte=368) POTASSIUM (BEAKER) (test 3.8 meq/L 3.5-5.1 cbby=343) CHLORIDE (BEAKER) (test 100 meq/L 98-107 otfe=330) CO2 (BEAKER) (test 29 meq/L 22-29 obry=863) BLOOD UREA NITROGEN 10 mg/dL 7-21 (BEAKER) (test jdus=310) CREATININE (BEAKER) (test 0.71 mg/dL 0.57-1.25 wcor=494) GLUCOSE RANDOM (BEAKER) 100 mg/dL 70-105 (test guqf=696) CALCIUM (BEAKER) (test 8.6 mg/dL 8.4-10.2 cpla=037) EGFR (BEAKER) (test 84 mL/min/1.73 sq m ESTIMATED GFR IS NOT cagi=6028) ACCURATE CREATININE CLEARANCE IN PREDICTING GLOMERULAR FILTRATION RATE. ESTIMATED GFR IS NOT APPLICABLE FOR DIALYSIS PATIENTS. HEPATIC FUNCTION [id number] 06:09:00 Test Item Value Reference Range Comments TOTAL PROTEIN (BEAKER) (test pzao=282) 5.8 gm/dL 6.0-8.3 ALBUMIN (BEAKER) (test ttop=8170) 3.3 g/dL 3.5-5.0 BILIRUBIN TOTAL (BEAKER) (test irev=093) 1.5 mg/dL 0.2-1.2 BILIRUBIN DIRECT (BEAKER) (test oxqr=941) 0.9 mg/dL 0.1-0.5 ALKALINE PHOSPHATASE (BEAKER) (test wern=683) 70 U/L 40-150 AST (SGOT) (BEAKER) (test saqj=821) 38 U/L 5-34 ALT (SGPT) (BEAKER) (test swyk=770) 44 U/L 6-55 [id number] 05:47:00 Test Item Value Reference Range Comments PROTIME (BEAKER) (test fuuv=894) 17.3 seconds 11.9-14.2 INR (BEAKER) (test arut=064) 1.5 <=5.9 PARTIAL THROMBOPLASTIN TIME (BEAKER) (test 36.2 seconds 22.5-36.0 rxin=886) Effective 10/24/2018: PT Reference Range ChangeNew: 11.9-14.2 Previous: 11.7- 14.7RECOMMENDED COUMADIN/WARFARIN INR THERAPY RANGESSTANDARD DOSE: 2.0-3.0 Includes: PROPHYLAXIS for venous thrombosis, systemic embolization; TREATMENT for venous thrombosis and/or pulmonary embolus.HIGH RISK: Target INR is2.5-3.5 for patients wiht mechanical heart valves.CBC W/PLT COUNT & AUTO [id number] 05:46:00 Test Item Value Reference Range Comments WHITE BLOOD CELL COUNT (BEAKER) (test psxi=247) 8.4 K/ L 3.5-10.5 RED BLOOD CELL COUNT (BEAKER) (test gfmu=070) 2.61 M/ L 3.93-5.22 HEMOGLOBIN (BEAKER) (test hswj=081) 8.3 GM/DL 11.2-15.7 HEMATOCRIT (BEAKER) (test vunj=655) 25.5 % 34.1-44.9 MEAN CORPUSCULAR VOLUME (BEAKER) (test wkkq=211) 97.7 fL 79.4-94.8 MEAN CORPUSCULAR HEMOGLOBIN (BEAKER) (test 31.8 pg 25.6-32.2 qhzx=394) MEAN CORPUSCULAR HEMOGLOBIN CONC (BEAKER) (test 32.5 GM/DL 32.2-35.5 zhwb=160) RED CELL DISTRIBUTION WIDTH (BEAKER) (test 20.8 % 11.7-14.4 jghi=583) PLATELET COUNT (BEAKER) (test lsdt=645) 89 K/CU MM 150-450 MEAN PLATELET VOLUME (BEAKER) (test hejw=818) 11.3 fL 9.4-12.3 NUCLEATED RED BLOOD CELLS (BEAKER) (test 0 /100 WBC 0-0 rcjd=449) NEUTROPHILS RELATIVE PERCENT (BEAKER) (test 55 % mzys=431) LYMPHOCYTES RELATIVE PERCENT (BEAKER) (test 27 % uact=581) MONOCYTES RELATIVE PERCENT (BEAKER) (test 16 % mmuo=287) EOSINOPHILS RELATIVE PERCENT (BEAKER) (test 2 % fzto=465) BASOPHILS RELATIVE PERCENT (BEAKER) (test 1 % okma=408) NEUTROPHILS ABSOLUTE COUNT (BEAKER) (test 4.57 K/ L 1.56-6.13 buli=747) LYMPHOCYTES ABSOLUTE COUNT (BEAKER) (test 2.23 K/ L 1.18-3.74 mfvn=749) MONOCYTES ABSOLUTE COUNT (BEAKER) (test okuc=541) 1.30 K/ L 0.24-0.36 EOSINOPHILS ABSOLUTE COUNT (BEAKER) (test 0.18 K/ L 0.04-0.36 xfxw=124) BASOPHILS ABSOLUTE COUNT (BEAKER) (test ipnx=905) 0.04 K/ L 0.01-0.08 IMMATURE GRANULOCYTES-RELATIVE PERCENT (BEAKER) 1 % 0-1 (test psct=3996) POCT-GLUCOSE [id number] 23:48:00 Test Item Value Reference Range Comments POC-GLUCOSE METER (BEAKER) 182 mg/dL 70-110 TESTED AT [address] (test ndlt=0780) [facility] [address] POCT-GLUCOSE [id number] 18:04:00 Test Item Value Reference Range Comments POC-GLUCOSE METER (BEAKER) 95 mg/dL 70-110 TESTED AT [address] (test tcbu=0669) [facility] [address] HEMOGLOBIN AND [id number] 17:04:00 Test Item Value Reference Range Comments HEMOGLOBIN (BEAKER) (test uvvt=038) 8.8 GM/DL 11.2-15.7 HEMATOCRIT (BEAKER) (test pxdr=686) 27.4 % 34.1-44.9 BLOOD GAS, [id number] 15:45:00 Test Item Value Reference Range Comments PH ARTERIAL (BEAKER) (test zjot=116) 7.55 7.35-7.45 PCO2 ARTERIAL (BEAKER) (test lipm=751) 31 mmHg 35-45 PO2 ARTERIAL (BEAKER) (test bxte=451) 62 mmHg 80-90 O2 SATURATION ARTERIAL (BEAKER) (test pduj=540) 94.5 % 96.0-97.0 HCO3 ARTERIAL (BEAKER) (test wtlu=281) 27 mmol/L 21-29 BASE EXCESS ARTERIAL (BEAKER) (test xkrq=878) 4.5 mmol/L -2.0-3.0 PATIENT TEMPERATURE (BEAKER) (test ezce=0019) 37.0 C Please draw blood w/ patient on room air and sitting for at least 15 minutes prior to lab drawPOCT-GLUCOSE [id number] 11:29:00 Test Item Value Reference Range Comments POC-GLUCOSE METER (BEAKER) 205 mg/dL 70-110 TESTED AT [address] (test swte=8233) [facility] [address] RAD, CHEST, 1 VIEW, NON [id number] 08:46:00Reason for exam:->shortness of breathShould this be [...] MDReport Verified Date/Time: 12/14/2018 08:46:53 Reading Location: [facility] Radiology Reading Room Electronically signed by: DAPHNE BISHOP M.D. on 08:46 AMPOCT-GLUCOSE [id number] 08:21:00 Test Item Value Reference Range Comments POC-GLUCOSE METER (BEAKER) 107 mg/dL 70-110 TESTED AT [facility] [address] [facility] (test qvbn=3693) [facility] [address] HEMOGLOBIN [id number] 08:02:00 Test Item Value Reference Range Comments HEMOGLOBIN A1C (BEAKER) (test rasi=571) 5.1 % 4.3-6.1 [id number] 07:51:00 Test Item Value Reference Range Comments MAGNESIUM (BEAKER) (test ndgr=293) 1.8 mg/dL 1.6-2.6 BASIC METABOLIC [id number] 07:51:00 Test Item Value Reference Range Comments SODIUM (BEAKER) (test 137 meq/L 136-145 gxjb=426) POTASSIUM (BEAKER) (test 3.3 meq/L 3.5-5.1 dsuj=802) CHLORIDE (BEAKER) (test 100 meq/L 98-107 uaal=162) CO2 (BEAKER) (test 28 meq/L 22-29 tocv=761) BLOOD UREA NITROGEN 11 mg/dL 7-21 (BEAKER) (test hsky=667) CREATININE (BEAKER) (test 0.65 mg/dL 0.57-1.25 lyzg=864) GLUCOSE RANDOM (BEAKER) 91 mg/dL 70-105 (test xfpl=479) CALCIUM (BEAKER) (test 8.3 mg/dL 8.4-10.2 wkbd=993) EGFR (BEAKER) (test 93 mL/min/1.73 sq m ESTIMATED GFR IS NOT wnwt=7327) ACCURATE CREATININE CLEARANCE IN PREDICTING GLOMERULAR FILTRATION RATE. ESTIMATED GFR IS NOT APPLICABLE FOR DIALYSIS PATIENTS. Specimen slightly ictericHEPATIC FUNCTION [id number] 07:51:00 Test Item Value Reference Range Comments TOTAL PROTEIN (BEAKER) (test bcbd=158) 5.4 gm/dL 6.0-8.3 ALBUMIN (BEAKER) (test kwwq=0367) 3.2 g/dL 3.5-5.0 BILIRUBIN TOTAL (BEAKER) (test qgge=166) 1.9 mg/dL 0.2-1.2 BILIRUBIN DIRECT (BEAKER) (test lfio=634) 0.9 mg/dL 0.1-0.5 ALKALINE PHOSPHATASE (BEAKER) (test czoz=325) 63 U/L 40-150 AST (SGOT) (BEAKER) (test ffvi=361) 40 U/L 5-34 ALT (SGPT) (BEAKER) (test bzrh=729) 48 U/L 6-55 Specimen slightly ictericCBC W/PLT COUNT & AUTO [id number] 05:44 :00 Test Item Value Reference Range Comments WHITE BLOOD CELL COUNT (BEAKER) (test ctxl=916) 8.1 K/ L 3.5-10.5 RED BLOOD CELL COUNT (BEAKER) (test nuep=689) 2.55 M/ L 3.93-5.22 HEMOGLOBIN (BEAKER) (test caiu=113) 7.9 GM/DL 11.2-15.7 HEMATOCRIT (BEAKER) (test dhka=971) 25.1 % 34.1-44.9 MEAN CORPUSCULAR VOLUME (BEAKER) (test ojea=994) 98.4 fL 79.4-94.8 MEAN CORPUSCULAR HEMOGLOBIN (BEAKER) (test 31.0 pg 25.6-32.2 fxgi=829) MEAN CORPUSCULAR HEMOGLOBIN CONC (BEAKER) (test 31.5 GM/DL 32.2-35.5 flvu=431) RED CELL DISTRIBUTION WIDTH (BEAKER) (test 21.1 % 11.7-14.4 gtzz=787) PLATELET COUNT (BEAKER) (test nlbz=444) 81 K/CU MM 150-450 MEAN PLATELET VOLUME (BEAKER) (test vdex=713) 12.1 fL 9.4-12.3 NUCLEATED RED BLOOD CELLS (BEAKER) (test 0 /100 WBC 0-0 fddh=989) NEUTROPHILS RELATIVE PERCENT (BEAKER) (test 55 % hcmu=269) LYMPHOCYTES RELATIVE PERCENT (BEAKER) (test 28 % kdtw=299) MONOCYTES RELATIVE PERCENT (BEAKER) (test 13 % idiw=937) EOSINOPHILS RELATIVE PERCENT (BEAKER) (test 3 % zish=969) BASOPHILS RELATIVE PERCENT (BEAKER) (test 1 % xlrl=748) NEUTROPHILS ABSOLUTE COUNT (BEAKER) (test 4.46 K/ L 1.56-6.13 zdvv=471) LYMPHOCYTES ABSOLUTE COUNT (BEAKER) (test 2.25 K/ L 1.18-3.74 dmrf=833) MONOCYTES ABSOLUTE COUNT (BEAKER) (test andv=837) 1.09 K/ L 0.24-0.36 EOSINOPHILS ABSOLUTE COUNT (BEAKER) (test 0.22 K/ L 0.04-0.36 eoat=053) BASOPHILS ABSOLUTE COUNT (BEAKER) (test ilcj=840) 0.06 K/ L 0.01-0.08 IMMATURE GRANULOCYTES-RELATIVE PERCENT (BEAKER) 1 % 0-1 (test fcch=9046) [id number] 05:41:00 Test Item Value Reference Range Comments PROTIME (BEAKER) (test fvyv=128) 18.5 seconds 11.9-14.2 INR (BEAKER) (test ydwj=046) 1.6 <=5.9 PARTIAL THROMBOPLASTIN TIME (BEAKER) (test 38.0 seconds 22.5-36.0 uheh=304) Effective 10/24/2018: PT Reference Range ChangeNew: 11.9-14.2 Previous: 11.7- 14.7RECOMMENDED COUMADIN/WARFARIN INR THERAPY RANGESSTANDARD DOSE: 2.0-3.0 Includes: PROPHYLAXIS for venous thrombosis, systemic embolization; TREATMENT for venous thrombosis and/or pulmonary embolus.HIGH RISK: Target INR is2.5-3.5 for patients wiht mechanical heart valves.POCT-GLUCOSE [id number] 00:43:00 Test Item Value Reference Range Comments POC-GLUCOSE METER (BEAKER) 131 mg/dL 70-110 TESTED AT [address] (test tivy=2679) [facility] [address] POCT-GLUCOSE [id number] 17:27:00 Test Item Value Reference Range Comments POC-GLUCOSE METER (BEAKER) 133 mg/dL 70-110 TESTED AT [address] (test seti=8886) [facility] [address] POCT-GLUCOSE [id number] 14:27:00 Test Item Value Reference Range Comments POC-GLUCOSE METER (BEAKER) 136 mg/dL 70-110 TESTED AT [facility] [address] [facility] (test hiek=4280) [facility] [address] POCT-GLUCOSE [id number] 12:53:00 Test Item Value Reference Range Comments POC-GLUCOSE METER (BEAKER) 207 mg/dL 70-110 TESTED AT [facility] [address] [facility] (test yitz=4500) [facility] [address] [id number] 07:55:00 Test Item Value Reference Range Comments PHOSPHORUS (BEAKER) (test bysz=166) 2.9 mg/dL 2.3-4.7 [id number] 07:55:00 Test Item Value Reference Range Comments MAGNESIUM (BEAKER) (test esuu=332) 1.9 mg/dL 1.6-2.6 BASIC METABOLIC [id number] 07:55:00 Test Item Value Reference Range Comments SODIUM (BEAKER) (test 138 meq/L 136-145 znoq=372) POTASSIUM (BEAKER) (test 3.5 meq/L 3.5-5.1 nyek=714) CHLORIDE (BEAKER) (test 103 meq/L 98-107 crft=033) CO2 (BEAKER) (test 27 meq/L 22-29 ljha=298) BLOOD UREA NITROGEN 14 mg/dL 7-21 (BEAKER) (test fyju=772) CREATININE (BEAKER) (test 0.72 mg/dL 0.57-1.25 prpd=065) GLUCOSE RANDOM (BEAKER) 112 mg/dL 70-105 (test peck=896) CALCIUM (BEAKER) (test 8.8 mg/dL 8.4-10.2 rdrn=603) EGFR (BEAKER) (test 83 mL/min/1.73 sq m ESTIMATED GFR IS NOT emci=3642) ACCURATE CREATININE CLEARANCE IN PREDICTING GLOMERULAR FILTRATION RATE. ESTIMATED GFR IS NOT APPLICABLE FOR DIALYSIS PATIENTS. Specimen slightly ictericHEPATIC FUNCTION [id number] 07:55:00 Test Item Value Reference Range Comments TOTAL PROTEIN (BEAKER) (test iuok=530) 6.0 gm/dL 6.0-8.3 ALBUMIN (BEAKER) (test xfdb=3358) 3.6 g/dL 3.5-5.0 BILIRUBIN TOTAL (BEAKER) (test kdeh=773) 2.1 mg/dL 0.2-1.2 BILIRUBIN DIRECT (BEAKER) (test gddn=420) 1.0 mg/dL 0.1-0.5 ALKALINE PHOSPHATASE (BEAKER) (test bqsx=494) 67 U/L 40-150 AST (SGOT) (BEAKER) (test ggxv=710) 44 U/L 5-34 ALT (SGPT) (BEAKER) (test qdgv=234) 64 U/L 6-55 Specimen slightly ictericPOCT-GLUCOSE [id number] 07:52:00 Test Item Value Reference Range Comments POC-GLUCOSE METER (BEAKER) 117 mg/dL 70-110 TESTED AT [facility] [address] [facility] (test ckrk=3578) [place] [address] CBC W/PLT COUNT & AUTO [id number] 06:01:00 Test Item Value Reference Range Comments WHITE BLOOD CELL COUNT (BEAKER) (test fjwt=535) 10.1 K/ L 3.5-10.5 RED BLOOD CELL COUNT (BEAKER) (test bsvf=387) 2.79 M/ L 3.93-5.22 HEMOGLOBIN (BEAKER) (test miii=328) 8.6 GM/DL 11.2-15.7 HEMATOCRIT (BEAKER) (test tfsz=790) 28.0 % 34.1-44.9 MEAN CORPUSCULAR VOLUME (BEAKER) (test vqfx=405) 100.4 fL 79.4-94.8 MEAN CORPUSCULAR HEMOGLOBIN (BEAKER) (test 30.8 pg 25.6-32.2 prbl=103) MEAN CORPUSCULAR HEMOGLOBIN CONC (BEAKER) (test 30.7 GM/DL 32.2-35.5 xzoz=857) RED CELL DISTRIBUTION WIDTH (BEAKER) (test 21.1 % 11.7-14.4 lvgw=299) PLATELET COUNT (BEAKER) (test skwy=388) 89 K/CU MM 150-450 MEAN PLATELET VOLUME (BEAKER) (test ckqb=640) 11.6 fL 9.4-12.3 NUCLEATED RED BLOOD CELLS (BEAKER) (test 0 /100 WBC 0-0 bomw=300) NEUTROPHILS RELATIVE PERCENT (BEAKER) (test 65 % vbdk=679) LYMPHOCYTES RELATIVE PERCENT (BEAKER) (test 19 % ofhn=540) MONOCYTES RELATIVE PERCENT (BEAKER) (test 13 % pdzi=688) EOSINOPHILS RELATIVE PERCENT (BEAKER) (test 2 % swbb=752) BASOPHILS RELATIVE PERCENT (BEAKER) (test 1 % ouid=154) NEUTROPHILS ABSOLUTE COUNT (BEAKER) (test 6.56 K/ L 1.56-6.13 btwh=730) LYMPHOCYTES ABSOLUTE COUNT (BEAKER) (test 1.87 K/ L 1.18-3.74 ssbl=271) MONOCYTES ABSOLUTE COUNT (BEAKER) (test lrbr=177) 1.34 K/ L 0.24-0.36 EOSINOPHILS ABSOLUTE COUNT (BEAKER) (test 0.23 K/ L 0.04-0.36 jqsq=467) BASOPHILS ABSOLUTE COUNT (BEAKER) (test fgyu=596) 0.06 K/ L 0.01-0.08 IMMATURE GRANULOCYTES-RELATIVE PERCENT (BEAKER) 1 % 0-1 (test doct=3231) [id number] 05:56:00 Test Item Value Reference Range Comments PROTIME (BEAKER) (test cnke=786) 18.7 seconds 11.9-14.2 INR (BEAKER) (test orpv=867) 1.7 <=5.9 PARTIAL THROMBOPLASTIN TIME (BEAKER) (test 39.7 seconds 22.5-36.0 biid=204) Effective 10/24/2018: PT Reference Range ChangeNew: 11.9-14.2 Previous: 11.7- 14.7RECOMMENDED COUMADIN/WARFARIN INR THERAPY RANGESSTANDARD DOSE: 2.0-3.0 Includes: PROPHYLAXIS for venous thrombosis, systemic embolization; TREATMENT for venous thrombosis and/or pulmonary embolus.HIGH RISK: Target INR is2.5-3.5 for patients wiht mechanical heart valves.BLOOD [id number] 02:01:00 Test Item Value Reference Range Comments CULTURE (BEAKER) (test swks=7901) No growth in 5 days BLOOD [id number] 02:01:00 Test Item Value Reference Range Comments CULTURE (BEAKER) (test mpen=0065) No growth in 5 days POCT-GLUCOSE [id number] 00:06:00 Test Item Value Reference Range Comments POC-GLUCOSE METER (BEAKER) 118 mg/dL 70-110 TESTED AT [address] (test zzhn=4819) [facility] [address] POCT-GLUCOSE [id number] 17:25:00 Test Item Value Reference Range Comments POC-GLUCOSE METER (BEAKER) 105 mg/dL 70-110 TESTED AT [facility] [address] (test mrjg=0384) [facility] [address] HEMOGLOBIN AND [id number] 14:25:00 Test Item Value Reference Range Comments HEMOGLOBIN (BEAKER) (test oivt=800) 8.9 GM/DL 11.2-15.7 HEMATOCRIT (BEAKER) (test bqlt=079) 28.5 % 34.1-44.9 Contact hospitalist if Hgb <7.0RAD, ABDOMEN/KUB, 1 VIEW [id number] 14:09: 00Reason for exam:->abd distentionFINAL REPORT Abdomen , one view CLINICAL INDICATION: Abdominal distention COMPARISON: 12/10/2018 IMPRESSION:Dilated small bowel loops are again noted throughout the abdomen, similar to prior. There is also gaseous distention of the ascending and transverse colon. No gas is noted in the sigmoid colon or rectum. Overall, the bowel gas pattern is unchanged. Signed: Alex Jenkinsort Verified Date/ Time: 12/12/2018 14:09:05 Reading Location: [address] Consult Reading Room RAD, CHEST, 1 VIEW, NON [id number] 14:06:00Reason for exam:->hypoxiaShould this be performed at the bedside?->YesFINAL REPORT Chest, portable AP view History: Hypoxia Comparison: 12/07/2018 IMPRESSION: The heart is stable in size. There are low lung volumes. Bibasilar atelectasis is present. There is a small right pleural effusion. There is no pneumothorax. Left upper extremity PICC tip terminates in the right atrium. Signed: lAex Jenkins MDReport Verified Date/Time: 12/12/2018 14:06:55 Reading Location: [facility] C0[facility] Consult Reading Room POCT-GLUCOSE [id number] 12:31:00 Test Item Value Reference Range Comments POC-GLUCOSE METER (BEAKER) 194 mg/dL 70-110 TESTED AT [facility] [address] [facility] (test iswk=3795) [facility] [address] POCT-GLUCOSE [id number] 07:44:00 Test Item Value Reference Range Comments POC-GLUCOSE METER (BEAKER) 116 mg/dL 70-110 TESTED AT [facility] [address] [facility] (test ounh=4768) [facility] [address] [id number] 06:16:00 Test Item Value Reference Range Comments PHOSPHORUS (BEAKER) (test sdsf=014) 2.8 mg/dL 2.3-4.7 [id number] 06:16:00 Test Item Value Reference Range Comments MAGNESIUM (BEAKER) (test puds=744) 1.9 mg/dL 1.6-2.6 BASIC METABOLIC [id number] 06:16:00 Test Item Value Reference Range Comments SODIUM (BEAKER) (test 140 meq/L 136-145 tdym=793) POTASSIUM (BEAKER) (test 3.8 meq/L 3.5-5.1 cxtt=815) CHLORIDE (BEAKER) (test 106 meq/L 98-107 ptco=813) CO2 (BEAKER) (test 29 meq/L 22-29 honc=408) BLOOD UREA NITROGEN 16 mg/dL 7-21 (BEAKER) (test frll=680) CREATININE (BEAKER) (test 0.73 mg/dL 0.57-1.25 qgcn=210) GLUCOSE RANDOM (BEAKER) 101 mg/dL 70-105 (test wpue=188) CALCIUM (BEAKER) (test 8.8 mg/dL 8.4-10.2 rfst=025) EGFR (BEAKER) (test 81 mL/min/1.73 sq m ESTIMATED GFR IS NOT iunc=5357) ACCURATE CREATININE CLEARANCE IN PREDICTING GLOMERULAR FILTRATION RATE. ESTIMATED GFR IS NOT APPLICABLE FOR DIALYSIS PATIENTS. Specimen slightly ictericHEPATIC FUNCTION [id number] 06:16:00 Test Item Value Reference Range Comments TOTAL PROTEIN (BEAKER) (test nrzw=923) 5.5 gm/dL 6.0-8.3 ALBUMIN (BEAKER) (test dzvv=7125) 3.6 g/dL 3.5-5.0 BILIRUBIN TOTAL (BEAKER) (test sqcb=357) 2.1 mg/dL 0.2-1.2 BILIRUBIN DIRECT (BEAKER) (test fgrv=833) 1.0 mg/dL 0.1-0.5 ALKALINE PHOSPHATASE (BEAKER) (test okjj=145) 52 U/L 40-150 AST (SGOT) (BEAKER) (test fojq=433) 39 U/L 5-34 ALT (SGPT) (BEAKER) (test acbv=894) 70 U/L 6-55 Specimen slightly ictericPT/[id number] 05:33:00 Test Item Value Reference Range Comments PROTIME (BEAKER) (test zmcb=152) 19.9 seconds 11.9-14.2 INR (BEAKER) (test avhu=137) 1.8 <=5.9 PARTIAL THROMBOPLASTIN TIME (BEAKER) (test 38.2 seconds 22.5-36.0 psvl=572) Effective 10/24/2018: PT Reference Range ChangeNew: 11.9-14.2 Previous: 11.7- 14.7RECOMMENDED COUMADIN/WARFARIN INR THERAPY RANGESSTANDARD DOSE: 2.0-3.0 Includes: PROPHYLAXIS for venous thrombosis, systemic embolization; TREATMENT for venous thrombosis and/or pulmonary embolus.HIGH RISK: Target INR is2.5-3.5 for patients wiht mechanical heart valves.CBC W/PLT COUNT & AUTO [id number] 05:21:00 Test Item Value Reference Range Comments WHITE BLOOD CELL COUNT (BEAKER) (test toib=649) 8.7 K/ L 3.5-10.5 RED BLOOD CELL COUNT (BEAKER) (test bipk=333) 2.44 M/ L 3.93-5.22 HEMOGLOBIN (BEAKER) (test clyq=788) 7.5 GM/DL 11.2-15.7 HEMATOCRIT (BEAKER) (test sjpv=452) 24.5 % 34.1-44.9 MEAN CORPUSCULAR VOLUME (BEAKER) (test evss=153) 100.4 fL 79.4-94.8 MEAN CORPUSCULAR HEMOGLOBIN (BEAKER) (test 30.7 pg 25.6-32.2 hitf=063) MEAN CORPUSCULAR HEMOGLOBIN CONC (BEAKER) (test 30.6 GM/DL 32.2-35.5 mbat=318) RED CELL DISTRIBUTION WIDTH (BEAKER) (test 21.3 % 11.7-14.4 uxwt=527) PLATELET COUNT (BEAKER) (test futx=921) 83 K/CU MM 150-450 MEAN PLATELET VOLUME (BEAKER) (test spfb=231) 11.5 fL 9.4-12.3 NUCLEATED RED BLOOD CELLS (BEAKER) (test 0 /100 WBC 0-0 bbjk=270) NEUTROPHILS RELATIVE PERCENT (BEAKER) (test 52 % lyig=060) LYMPHOCYTES RELATIVE PERCENT (BEAKER) (test 27 % djtq=005) MONOCYTES RELATIVE PERCENT (BEAKER) (test 16 % pyiq=942) EOSINOPHILS RELATIVE PERCENT (BEAKER) (test 4 % awjx=259) BASOPHILS RELATIVE PERCENT (BEAKER) (test 1 % iwgd=746) NEUTROPHILS ABSOLUTE COUNT (BEAKER) (test 4.49 K/ L 1.56-6.13 foko=054) LYMPHOCYTES ABSOLUTE COUNT (BEAKER) (test 2.36 K/ L 1.18-3.74 ucnd=703) MONOCYTES ABSOLUTE COUNT (BEAKER) (test xuzl=901) 1.41 K/ L 0.24-0.36 EOSINOPHILS ABSOLUTE COUNT (BEAKER) (test 0.34 K/ L 0.04-0.36 gcwu=563) BASOPHILS ABSOLUTE COUNT (BEAKER) (test xsfq=957) 0.05 K/ L 0.01-0.08 IMMATURE GRANULOCYTES-RELATIVE PERCENT (BEAKER) 1 % 0-1 (test pgex=2066) POCT-GLUCOSE [id number] 00:10:00 Test Item Value Reference Range Comments POC-GLUCOSE METER (BEAKER) 127 mg/dL 70-110 TESTED AT [address] (test tbxa=5763) [facility] [address] POCT-GLUCOSE [id number] 17:40:00 Test Item Value Reference Range Comments POC-GLUCOSE METER (BEAKER) 165 mg/dL 70-110 TESTED AT [address] (test zezn=3666) [facility] [address] POCT-GLUCOSE [id number] 12:35:00 Test Item Value Reference Range Comments POC-GLUCOSE METER (BEAKER) 190 mg/dL 70-110 TESTED AT [address] (test cwcs=9106) [facility] [address] POCT-GLUCOSE [id number] 08:29:00 Test Item Value Reference Range Comments POC-GLUCOSE METER (BEAKER) 173 mg/dL 70-110 [facility] [address] [facility] (test uzze=8820) [facility] [address] CBC W/PLT COUNT & AUTO [id number] 05:21:00 Test Item Value Reference Range Comments WHITE BLOOD CELL COUNT (BEAKER) (test kjqu=417) 9.4 K/ L 3.5-10.5 RED BLOOD CELL COUNT (BEAKER) (test eewe=991) 2.86 M/ L 3.93-5.22 HEMOGLOBIN (BEAKER) (test prnr=125) 8.9 GM/DL 11.2-15.7 HEMATOCRIT (BEAKER) (test dldc=655) 28.9 % 34.1-44.9 MEAN CORPUSCULAR VOLUME (BEAKER) (test ujeb=249) 101.0 fL 79.4-94.8 MEAN CORPUSCULAR HEMOGLOBIN (BEAKER) (test 31.1 pg 25.6-32.2 mesh=098) MEAN CORPUSCULAR HEMOGLOBIN CONC (BEAKER) (test 30.8 GM/DL 32.2-35.5 fscy=024) RED CELL DISTRIBUTION WIDTH (BEAKER) (test 21.9 % 11.7-14.4 gyar=658) PLATELET COUNT (BEAKER) (test rkoe=625) 118 K/CU MM 150-450 MEAN PLATELET VOLUME (BEAKER) (test ylok=068) 11.2 fL 9.4-12.3 NUCLEATED RED BLOOD CELLS (BEAKER) (test 1 /100 WBC 0-0 euxe=587) NEUTROPHILS RELATIVE PERCENT (BEAKER) (test 55 % rzlt=864) LYMPHOCYTES RELATIVE PERCENT (BEAKER) (test 24 % iegj=479) MONOCYTES RELATIVE PERCENT (BEAKER) (test 16 % jder=556) EOSINOPHILS RELATIVE PERCENT (BEAKER) (test 3 % fxmc=706) BASOPHILS RELATIVE PERCENT (BEAKER) (test 1 % xvds=586) NEUTROPHILS ABSOLUTE COUNT (BEAKER) (test 5.22 K/ L 1.56-6.13 nnhf=631) LYMPHOCYTES ABSOLUTE COUNT (BEAKER) (test 2.30 K/ L 1.18-3.74 hkfv=021) MONOCYTES ABSOLUTE COUNT (BEAKER) (test 1.50 K/ L 0.24-0.36 yzqf=558) EOSINOPHILS ABSOLUTE COUNT (BEAKER) (test 0.30 K/ L 0.04-0.36 vlyg=264) BASOPHILS ABSOLUTE COUNT (BEAKER) (test 0.07 K/ L 0.01-0.08 zrrx=865) IMMATURE GRANULOCYTES-RELATIVE PERCENT (BEAKER) 1 % 0-1 (test usae=7726) [id number] 05:18:00 Test Item Value Reference Range Comments PHOSPHORUS (BEAKER) (test mchw=178) 2.1 mg/dL 2.3-4.7 [id number] 05:18:00 Test Item Value Reference Range Comments MAGNESIUM (BEAKER) (test ypdl=433) 2.2 mg/dL 1.6-2.6 BASIC METABOLIC [id number] 05:18:00 Test Item Value Reference Range Comments SODIUM (BEAKER) (test 143 meq/L 136-145 fwoi=048) POTASSIUM (BEAKER) (test 3.8 meq/L 3.5-5.1 fbnc=355) CHLORIDE (BEAKER) (test 110 meq/L 98-107 nutu=734) CO2 (BEAKER) (test 27 meq/L 22-29 dmaf=936) BLOOD UREA NITROGEN 19 mg/dL 7-21 (BEAKER) (test raps=764) CREATININE (BEAKER) (test 0.75 mg/dL 0.57-1.25 zqca=332) GLUCOSE RANDOM (BEAKER) 118 mg/dL 70-105 (test ftiw=822) CALCIUM (BEAKER) (test 8.8 mg/dL 8.4-10.2 xrxf=494) EGFR (BEAKER) (test 79 mL/min/1.73 sq m ESTIMATED GFR IS NOT gymc=3324) ACCURATE CREATININE CLEARANCE IN PREDICTING GLOMERULAR FILTRATION RATE. ESTIMATED GFR IS NOT APPLICABLE FOR DIALYSIS PATIENTS. HEPATIC FUNCTION [id number] 05:18:00 Test Item Value Reference Range Comments TOTAL PROTEIN (BEAKER) (test rtop=145) 5.6 gm/dL 6.0-8.3 ALBUMIN (BEAKER) (test ftlg=5196) 3.3 g/dL 3.5-5.0 BILIRUBIN TOTAL (BEAKER) (test whga=581) 1.8 mg/dL 0.2-1.2 BILIRUBIN DIRECT (BEAKER) (test gbry=050) 0.9 mg/dL 0.1-0.5 ALKALINE PHOSPHATASE (BEAKER) (test iykp=104) 69 U/L 40-150 AST (SGOT) (BEAKER) (test ieut=937) 51 U/L 5-34 ALT (SGPT) (BEAKER) (test btvb=488) 110 U/L 6-55 [id number] 05:05:00 Test Item Value Reference Range Comments PROTIME (BEAKER) (test bpqv=047) 19.4 seconds 11.9-14.2 INR (BEAKER) (test zyob=809) 1.7 <=5.9 PARTIAL THROMBOPLASTIN TIME (BEAKER) (test 35.9 seconds 22.5-36.0 erbq=319) Effective 10/24/2018: PT Reference Range ChangeNew: 11.9-14.2 Previous: 11.7- 14.7RECOMMENDED COUMADIN/WARFARIN INR THERAPY RANGESSTANDARD DOSE: 2.0-3.0 Includes: PROPHYLAXIS for venous thrombosis, systemic embolization; TREATMENT for venous thrombosis and/or pulmonary embolus.HIGH RISK: Target INR is2.5-3.5 for patients wiht mechanical heart valves.[id number] 05:05:00 Test Item Value Reference Range Comments FIBRINOGEN LEVEL (BEAKER) (test kswn=504) 184 mg/dl 225-434 LACTIC ACID, [id number] 05:02:00 Test Item Value Reference Range Comments LACTATE BLOOD VENOUS (2) (BEAKER) (test 1.8 mmol/L 0.5-2.2 ybeg=1800) POCT-GLUCOSE [id number] 22:06:00 Test Item Value Reference Range Comments POC-GLUCOSE METER (BEAKER) 295 mg/dL 70-110 TESTED AT [address] (test asmz=0364) [place] [id number] POCT-GLUCOSE [id number] 18:38:00 Test Item Value Reference Range Comments POC-GLUCOSE METER (BEAKER) 181 mg/dL 70-110 TESTED AT [address] (test qxxf=6239) [place] [id number] BLOOD [id number] 16:53:00 Test Item Value Reference Range Comments CULTURE (BEAKER) From Anaerobic Bottle Only (test vbaq=7940) Coagulase negative Staphylococcus GRAM STAIN RESULT From anaerobic bottle (BEAKER) (test only: gram positive ezlg=6282) cocci in clusters POCT-GLUCOSE [id number] 13:01:00 Test Item Value Reference Range Comments POC-GLUCOSE METER (BEAKER) 143 mg/dL 70-110 TESTED AT [facility] [address] (test ormn=1030) [facility] [address] RAD, ABDOMEN/KUB, 1 VIEW [id number] 08:18:00Reason for exam:->ileusFINAL REPORT INDICATION:Ileus. COMPARISON: December [...] MDReport Verified Date/Time: 12/10/2018 08:18:25 Reading Location: [facility] Diagnostic Imaging Reading Room - [place] [id number] CBC W/PLT COUNT & AUTO [id number] 07:36:00 Test Item Value Reference Range Comments WHITE BLOOD CELL COUNT (BEAKER) (test kffq=764) 10.7 K/ L 3.5-10.5 RED BLOOD CELL COUNT (BEAKER) (test pvzk=578) 2.84 M/ L 3.93-5.22 HEMOGLOBIN (BEAKER) (test osef=115) 8.7 GM/DL 11.2-15.7 HEMATOCRIT (BEAKER) (test phsw=630) 28.5 % 34.1-44.9 MEAN CORPUSCULAR VOLUME (BEAKER) (test tnro=173) 100.4 fL 79.4-94.8 MEAN CORPUSCULAR HEMOGLOBIN (BEAKER) (test 30.6 pg 25.6-32.2 qbtb=410) MEAN CORPUSCULAR HEMOGLOBIN CONC (BEAKER) (test 30.5 GM/DL 32.2-35.5 hhwz=441) RED CELL DISTRIBUTION WIDTH (BEAKER) (test 22.5 % 11.7-14.4 ifuk=264) PLATELET COUNT (BEAKER) (test gtmr=939) 120 K/CU MM 150-450 MEAN PLATELET VOLUME (BEAKER) (test fabn=746) 11.5 fL 9.4-12.3 NUCLEATED RED BLOOD CELLS (BEAKER) (test 1 /100 WBC 0-0 nico=077) (CELLAVISION MANUAL DIFF)2018-12-10 07:36:00 Test Item Value Reference Range Comments NEUTROPHILS - REL (CELLAVISION)(BEAKER) (test 81 % hgmo=6420) LYMPHOCYTES - REL (CELLAVISION)(BEAKER) (test 9 % qtwq=8795) MONOCYTES - REL (CELLAVISION)(BEAKER) (test 8 % jhox=9770) EOSINOPHILS - REL (CELLAVISION)(BEAKER) (test 1 % wzqi=5007) BASOPHILS - REL (CELLAVISION)(BEAKER) (test 1 % mmcl=7649) NEUTROPHILS - ABS (CELLAVISION)(BEAKER) (test 8.67 K/ul 1.56-6.13 ezkc=4363) LYMPHOCYTES - ABS (CELLAVISION)(BEAKER) (test 0.96 K/ul 1.18-3.74 gwru=1995) MONOCYTES - ABS (CELLAVISION)(BEAKER) (test 0.86 K/uL 0.24-0.36 oqis=2237) EOSINOPHILS - ABS (CELLAVISION)(BEAKER) (test 0.11 K/uL 0.04-0.36 gdml=6614) BASOPHILS - ABS (CELLAVISION)(BEAKER) (test 0.11 K/uL 0.01-0.08 kumu=0546) TOTAL COUNTED (BEAKER) (test vqol=4892) 100 MANUAL NRBC PER 100 CELLS (BEAKER) (test 1 /100 WBC 0-0 bjwn=2830) WBC MORPHOLOGY (BEAKER) (test cogi=755) Normal PLT MORPHOLOGY (BEAKER) (test pgkv=835) Normal POLYCHROMATOPHILLIC RBCS(BEAKER) (test ovmc=736) 2+ moderate HYPOCHROMIA (BEAKER) (test bped=925) 1+ few ARTIFACT (CELLAVISION)(BEAKER) (test mnel=8606) Present PLATELET CONCENTRATION (CELLAVISION)(BEAKER) Decreased (test fpec=8991) Received comment: User comments: Slide comments:[id number] 05:18:00 Test Item Value Reference Range Comments PHOSPHORUS (BEAKER) (test pvyb=814) 2.5 mg/dL 2.3-4.7 [id number] 05:18:00 Test Item Value Reference Range Comments MAGNESIUM (BEAKER) (test pxbq=964) 2.2 mg/dL 1.6-2.6 BASIC METABOLIC [id number] 05:18:00 Test Item Value Reference Range Comments SODIUM (BEAKER) (test 146 meq/L 136-145 dvzv=446) POTASSIUM (BEAKER) (test 3.9 meq/L 3.5-5.1 xkny=602) CHLORIDE (BEAKER) (test 113 meq/L 98-107 lmtx=839) CO2 (BEAKER) (test 26 meq/L 22-29 ocvj=378) BLOOD UREA NITROGEN 19 mg/dL 7-21 (BEAKER) (test gxee=463) CREATININE (BEAKER) (test 0.68 mg/dL 0.57-1.25 vfcr=090) GLUCOSE RANDOM (BEAKER) 119 mg/dL 70-105 (test bbsl=651) CALCIUM (BEAKER) (test 8.4 mg/dL 8.4-10.2 epcp=085) EGFR (BEAKER) (test 88 mL/min/1.73 sq m ESTIMATED GFR IS NOT lgse=7118) ACCURATE CREATININE CLEARANCE IN PREDICTING GLOMERULAR FILTRATION RATE. ESTIMATED GFR IS NOT APPLICABLE FOR DIALYSIS PATIENTS. HEPATIC FUNCTION [id number] 05:18:00 Test Item Value Reference Range Comments TOTAL PROTEIN (BEAKER) (test oubt=762) 5.5 gm/dL 6.0-8.3 ALBUMIN (BEAKER) (test glny=0808) 3.3 g/dL 3.5-5.0 BILIRUBIN TOTAL (BEAKER) (test ckah=032) 2.0 mg/dL 0.2-1.2 BILIRUBIN DIRECT (BEAKER) (test xfcy=276) 1.0 mg/dL 0.1-0.5 ALKALINE PHOSPHATASE (BEAKER) (test fyti=897) 65 U/L 40-150 AST (SGOT) (BEAKER) (test xjfr=150) 52 U/L 5-34 ALT (SGPT) (BEAKER) (test nawo=902) 136 U/L 6-55 LACTIC ACID, [id number] 05:00:00 Test Item Value Reference Range Comments LACTATE BLOOD VENOUS (2) (BEAKER) (test 2.0 mmol/L 0.5-2.2 icuz=9172) [id number] 04:39:00 Test Item Value Reference Range Comments FIBRINOGEN LEVEL (BEAKER) (test jumt=953) 221 mg/dl 225-434 PT/[id number] 04:39:00 Test Item Value Reference Range Comments PROTIME (BEAKER) (test enrp=621) 17.5 seconds 11.9-14.2 INR (BEAKER) (test nlrx=272) 1.5 <=5.9 PARTIAL THROMBOPLASTIN TIME (BEAKER) (test 37.8 seconds 22.5-36.0 mcng=818) Effective 10/24/2018: PT Reference Range ChangeNew: 11.9-14.2 Previous: 11.7- 14.7RECOMMENDED COUMADIN/WARFARIN INR THERAPY RANGESSTANDARD DOSE: 2.0-3.0 Includes: PROPHYLAXIS for venous thrombosis, systemic embolization; TREATMENT for venous thrombosis and/or pulmonary embolus.HIGH RISK: Target INR is2.5-3.5 for patients wiht mechanical heart valves.U/S, ABDOMINAL, [id number] 01: 07:00Reason for exam:->ASCITES EVAL Should this [...] FLOR WILLIS MD on12/10/2018 01:07 AMPOCT- GLUCOSE [id number] 00:25:00 Test Item Value Reference Range Comments POC-GLUCOSE METER (BEAKER) 134 mg/dL 70-110 TESTED AT [address] (test vbas=8868) [place] [address] BLOOD [id number] 20:01:00 Test Item Value Reference Range Comments CULTURE (BEAKER) (test hypv=1544) No growth in 5 days HEMOGLOBIN AND [id number] 17:57:00 Test Item Value Reference Range Comments HEMOGLOBIN (BEAKER) (test qdkn=110) 8.8 GM/DL 11.2-15.7 HEMATOCRIT (BEAKER) (test wzen=318) 28.2 % 34.1-44.9 POCT-GLUCOSE [id number] 17:57:00 Test Item Value Reference Range Comments POC-GLUCOSE METER (BEAKER) 175 mg/dL 70-110 TESTED AT [address] (test hwgc=6282) [place] [address] POCT-GLUCOSE [id number] 13:23:00 Test Item Value Reference Range Comments POC-GLUCOSE METER (BEAKER) 110 mg/dL 70-110 TESTED AT [address] (test xjrf=3972) [place] [address] CBC W/PLT COUNT & AUTO [id number] 09:54:00 Test Item Value Reference Range Comments WHITE BLOOD CELL COUNT (BEAKER) (test nwsu=726) 9.9 K/ L 3.5-10.5 RED BLOOD CELL COUNT (BEAKER) (test gffv=473) 2.64 M/ L 3.93-5.22 HEMOGLOBIN (BEAKER) (test ydhi=688) 8.3 GM/DL 11.2-15.7 HEMATOCRIT (BEAKER) (test yxqp=009) 26.2 % 34.1-44.9 MEAN CORPUSCULAR VOLUME (BEAKER) (test mhtp=106) 99.2 fL 79.4-94.8 MEAN CORPUSCULAR HEMOGLOBIN (BEAKER) (test 31.4 pg 25.6-32.2 skjb=880) MEAN CORPUSCULAR HEMOGLOBIN CONC (BEAKER) (test 31.7 GM/DL 32.2-35.5 opsp=768) RED CELL DISTRIBUTION WIDTH (BEAKER) (test 22.9 % 11.7-14.4 jeex=175) PLATELET COUNT (BEAKER) (test ulrv=113) 118 K/CU MM 150-450 MEAN PLATELET VOLUME (BEAKER) (test oqvl=640) 11.5 fL 9.4-12.3 NUCLEATED RED BLOOD CELLS (BEAKER) (test 1 /100 WBC 0-0 awht=940) (CELLAVISION MANUAL DIFF)2018-12-09 09:54:00 Test Item Value Reference Range Comments NEUTROPHILS - REL (CELLAVISION)(BEAKER) (test 76 % wrol=8683) LYMPHOCYTES - REL (CELLAVISION)(BEAKER) (test 11 % yarm=0625) MONOCYTES - REL (CELLAVISION)(BEAKER) (test 10 % bvvx=6590) EOSINOPHILS - REL (CELLAVISION)(BEAKER) (test 2 % dwbz=8531) BASOPHILS - REL (CELLAVISION)(BEAKER) (test 1 % vrne=8103) NEUTROPHILS - ABS (CELLAVISION)(BEAKER) (test 7.52 K/ul 1.56-6.13 tzjt=5201) LYMPHOCYTES - ABS (CELLAVISION)(BEAKER) (test 1.09 K/ul 1.18-3.74 dzyu=9648) MONOCYTES - ABS (CELLAVISION)(BEAKER) (test 0.99 K/uL 0.24-0.36 ihnd=1818) EOSINOPHILS - ABS (CELLAVISION)(BEAKER) (test 0.20 K/uL 0.04-0.36 sbkg=9514) BASOPHILS - ABS (CELLAVISION)(BEAKER) (test 0.10 K/uL 0.01-0.08 rouj=6906) TOTAL COUNTED (BEAKER) (test djnt=8734) 100 MANUAL NRBC PER 100 CELLS (BEAKER) (test 1 /100 WBC 0-0 yekb=8720) WBC MORPHOLOGY (BEAKER) (test hzsq=765) Normal PLT MORPHOLOGY (BEAKER) (test zenf=165) Normal POLYCHROMATOPHILLIC RBCS(BEAKER) (test xytb=832) 1+ few ANISOCYTOSIS (BEAKER) (test otst=645) 1+ few MACROCYTES (BEAKER) (test fjfw=644) 1+ few POIKILOCYTES (BEAKER) (test sqyk=265) 2+ moderate ARTIFACT (CELLAVISION)(BEAKER) (test hiqt=4412) Present PLATELET CONCENTRATION (CELLAVISION)(BEAKER) Decreased (test cwki=6261) Received comment: User comments: Slide comments:RAD, ABDOMEN/KUB, 1 VIEW [id number] 07:43:00Reason for exam:->ileusFINAL REPORT ONE VIEW ABDOMEN [...] Verified Date/Time: 12/09/2018 07:43:19 Reading Location : [address] Reading Room POCT-GLUCOSE [id number] 05:30:00 Test Item Value Reference Range Comments POC-GLUCOSE METER (BEAKER) 112 mg/dL 70-110 TESTED AT [facility] [address] [facility] (test lwjy=1870) [facility] [address] [id number] 05:09:00 Test Item Value Reference Range Comments MAGNESIUM (BEAKER) (test 2.1 mg/dL 1.6-2.6 Specimen slightly hemolyzed ibzr=988) [id number] 05:09:00 Test Item Value Reference Range Comments PHOSPHORUS (BEAKER) (test 2.2 mg/dL 2.3-4.7 Specimen slightly hemolyzed lkfe=014) BASIC METABOLIC [id number] 05:09:00 Test Item Value Reference Range Comments SODIUM (BEAKER) (test 140 meq/L 136-145 lfxn=830) POTASSIUM (BEAKER) (test 4.1 meq/L 3.5-5.1 Specimen slightly jora=963) hemolyzed CHLORIDE (BEAKER) (test 108 meq/L 98-107 aynp=913) CO2 (BEAKER) (test 24 meq/L 22-29 osab=026) BLOOD UREA NITROGEN 18 mg/dL 7-21 (BEAKER) (test rfxm=801) CREATININE (BEAKER) (test 0.65 mg/dL 0.57-1.25 Specimen slightly hrxr=489) hemolyzed GLUCOSE RANDOM (BEAKER) 124 mg/dL 70-105 (test ybqi=023) CALCIUM (BEAKER) (test 8.1 mg/dL 8.4-10.2 zrri=599) EGFR (BEAKER) (test 93 mL/min/1.73 sq m ESTIMATED GFR IS NOT oemz=5162) ACCURATE CREATININE CLEARANCE IN PREDICTING GLOMERULAR FILTRATION RATE. ESTIMATED GFR IS NOT APPLICABLE FOR DIALYSIS PATIENTS. Specimen slightly ictericHEPATIC FUNCTION [id number] 05:09:00 Test Item Value Reference Range Comments TOTAL PROTEIN (BEAKER) (test 5.4 gm/dL 6.0-8.3 Specimen slightly hemolyzed khdl=188) ALBUMIN (BEAKER) (test 3.2 g/dL 3.5-5.0 Specimen slightly hemolyzed mvdz=2362) BILIRUBIN TOTAL (BEAKER) (test 2.2 mg/dL 0.2-1.2 Specimen slightly hemolyzed zmig=513) BILIRUBIN DIRECT (BEAKER) (test 0.9 mg/dL 0.1-0.5 Specimen slightly hemolyzed zmww=845) ALKALINE PHOSPHATASE (BEAKER) 63 U/L 40-150 (test xgmg=444) AST (SGOT) (BEAKER) (test 70 U/L 5-34 Specimen slightly hemolyzed buem=151) ALT (SGPT) (BEAKER) (test 169 U/L 6-55 Specimen slightly hemolyzed zmnw=666) Specimen slightly ictericLACTIC ACID, [id number] 04:54:00 Test Item Value Reference Range Comments LACTATE BLOOD VENOUS (2) (BEAKER) (test 1.3 mmol/L 0.5-2.2 fero=5415) Specimen slightly ictericPT/[id number] 04:45:00 Test Item Value Reference Range Comments PROTIME (BEAKER) (test mcwv=467) 16.8 seconds 11.9-14.2 INR (BEAKER) (test qmni=175) 1.4 <=5.9 PARTIAL THROMBOPLASTIN TIME (BEAKER) (test 29.5 seconds 22.5-36.0 lsog=242) Effective 10/24/2018: PT Reference Range ChangeNew: 11.9-14.2 Previous: 11.7- 14.7RECOMMENDED COUMADIN/WARFARIN INR THERAPY RANGESSTANDARD DOSE: 2.0-3.0 Includes: PROPHYLAXIS for venous thrombosis, systemic embolization; TREATMENT for venous thrombosis and/or pulmonary embolus.HIGH RISK: Target INR is2.5-3.5 for patients wiht mechanical heart valves.[id number] 04:45:00 Test Item Value Reference Range Comments FIBRINOGEN LEVEL (BEAKER) (test rwgn=259) 212 mg/dl 225-434 POCT-GLUCOSE [id number] 23:51:00 Test Item Value Reference Range Comments POC-GLUCOSE METER (BEAKER) 127 mg/dL 70-110 TESTED AT [facility] [address] [facility] (test lcde=5833) [facility] [address] [id number] 18:46:00 Test Item Value Reference Range Comments PHOSPHORUS (BEAKER) (test dmbq=255) 2.8 mg/dL 2.3-4.7 [id number] 18:46:00 Test Item Value Reference Range Comments MAGNESIUM (BEAKER) (test cdfr=927) 2.3 mg/dL 1.6-2.6 BASIC METABOLIC [id number] 18:46:00 Test Item Value Reference Range Comments SODIUM (BEAKER) (test 139 meq/L 136-145 hful=623) POTASSIUM (BEAKER) (test 4.0 meq/L 3.5-5.1 acav=128) CHLORIDE (BEAKER) (test 107 meq/L 98-107 ypel=597) CO2 (BEAKER) (test 24 meq/L 22-29 rfaa=101) BLOOD UREA NITROGEN 19 mg/dL 7-21 (BEAKER) (test icfj=540) CREATININE (BEAKER) (test 0.68 mg/dL 0.57-1.25 geeb=307) GLUCOSE RANDOM (BEAKER) 114 mg/dL 70-105 (test rtcl=084) CALCIUM (BEAKER) (test 8.2 mg/dL 8.4-10.2 eykl=996) EGFR (BEAKER) (test 88 mL/min/1.73 sq m ESTIMATED GFR IS NOT dfnf=4253) ACCURATE CREATININE CLEARANCE IN PREDICTING GLOMERULAR FILTRATION RATE. ESTIMATED GFR IS NOT APPLICABLE FOR DIALYSIS PATIENTS. Specimen slightly ictericPOCT-GLUCOSE [id number] 17:54:00 Test Item Value Reference Range Comments POC-GLUCOSE METER (BEAKER) 93 mg/dL 70-110 TESTED AT [address] (test bqex=5073) [place] [id number] LACTIC ACID, [id number] 12:49:00 Test Item Value Reference Range Comments LACTATE BLOOD VENOUS (2) (BEAKER) (test 1.9 mmol/L 0.5-2.2 jkmm=8978) Specimen slightly ictericPOCT-GLUCOSE [id number] 12:09:00 Test Item Value Reference Range Comments POC-GLUCOSE METER (BEAKER) 142 mg/dL 70-110 TESTED AT [address] (test sxjq=5963) [place] [address] RAD, ABDOMEN/KUB, 1 VIEW [id number] 08:31:00Reason for exam:->ileusShould this be performed at [...] MDReport Verified Date/Time: 12/08/2018 08:31:46 Reading Location: [place] [address] Body Reading Room [id number] 08:02:00 Test Item Value Reference Range Comments PHOSPHORUS (BEAKER) (test ydnc=742) 1.7 mg/dL 2.3-4.7 POCT-GLUCOSE [id number] 05:40:00 Test Item Value Reference Range Comments POC-GLUCOSE METER (BEAKER) 128 mg/dL 70-110 TESTED AT [address] (test navz=6860) [place] [address] [id number] 05:14:00 Test Item Value Reference Range Comments MAGNESIUM (BEAKER) (test xmld=270) 2.2 mg/dL 1.6-2.6 BASIC METABOLIC [id number] 05:14:00 Test Item Value Reference Range Comments SODIUM (BEAKER) (test 141 meq/L 136-145 oaau=542) POTASSIUM (BEAKER) (test 4.0 meq/L 3.5-5.1 fccn=760) CHLORIDE (BEAKER) (test 109 meq/L 98-107 ndjj=911) CO2 (BEAKER) (test 25 meq/L 22-29 ioar=877) BLOOD UREA NITROGEN 21 mg/dL 7-21 (BEAKER) (test mihp=612) CREATININE (BEAKER) (test 0.66 mg/dL 0.57-1.25 pobu=218) GLUCOSE RANDOM (BEAKER) 118 mg/dL 70-105 (test owvc=754) CALCIUM (BEAKER) (test 8.3 mg/dL 8.4-10.2 zmbr=592) EGFR (BEAKER) (test 91 mL/min/1.73 sq m ESTIMATED GFR IS NOT qvkd=2728) ACCURATE CREATININE CLEARANCE IN PREDICTING GLOMERULAR FILTRATION RATE. ESTIMATED GFR IS NOT APPLICABLE FOR DIALYSIS PATIENTS. Specimen slightly ictericHEPATIC FUNCTION [id number] 05:14:00 Test Item Value Reference Range Comments TOTAL PROTEIN (BEAKER) (test drjc=746) 5.4 gm/dL 6.0-8.3 ALBUMIN (BEAKER) (test qnyq=4782) 3.4 g/dL 3.5-5.0 BILIRUBIN TOTAL (BEAKER) (test coyu=999) 2.4 mg/dL 0.2-1.2 BILIRUBIN DIRECT (BEAKER) (test bdut=113) 1.0 mg/dL 0.1-0.5 ALKALINE PHOSPHATASE (BEAKER) (test feeb=940) 65 U/L 40-150 AST (SGOT) (BEAKER) (test yugi=360) 94 U/L 5-34 ALT (SGPT) (BEAKER) (test xvkd=785) 229 U/L 6-55 Specimen slightly [id number] 05:09:00 Test Item Value Reference Range Comments FIBRINOGEN LEVEL (BEAKER) (test ycgq=038) 223 mg/dl 225-434 PT/[id number] 05:09:00 Test Item Value Reference Range Comments PROTIME (BEAKER) (test ojup=590) 16.4 seconds 11.9-14.2 INR (BEAKER) (test adsh=912) 1.4 <=5.9 PARTIAL THROMBOPLASTIN TIME (BEAKER) (test 32.1 seconds 22.5-36.0 scan=017) Effective 10/24/2018: PT Reference Range ChangeNew: 11.9-14.2 Previous: 11.7- 14.7RECOMMENDED COUMADIN/WARFARIN INR THERAPY RANGESSTANDARD DOSE: 2.0-3.0 Includes: PROPHYLAXIS for venous thrombosis, systemic embolization; TREATMENT for venous thrombosis and/or pulmonary embolus.HIGH RISK: Target INR is2.5-3.5 for patients wiht mechanical heart valves.CBC W/PLT COUNT & AUTO [id number] 04:41:00 Test Item Value Reference Range Comments WHITE BLOOD CELL COUNT (BEAKER) (test mhdq=627) 10.2 K/ L 3.5-10.5 RED BLOOD CELL COUNT (BEAKER) (test xgkd=357) 2.63 M/ L 3.93-5.22 HEMOGLOBIN (BEAKER) (test zsjg=513) 8.3 GM/DL 11.2-15.7 HEMATOCRIT (BEAKER) (test pknc=116) 26.1 % 34.1-44.9 MEAN CORPUSCULAR VOLUME (BEAKER) (test nyxp=861) 99.2 fL 79.4-94.8 MEAN CORPUSCULAR HEMOGLOBIN (BEAKER) (test 31.6 pg 25.6-32.2 mxqy=621) MEAN CORPUSCULAR HEMOGLOBIN CONC (BEAKER) (test 31.8 GM/DL 32.2-35.5 mvoc=653) RED CELL DISTRIBUTION WIDTH (BEAKER) (test 23.0 % 11.7-14.4 kfft=914) PLATELET COUNT (BEAKER) (test rtwo=221) 106 K/CU MM 150-450 MEAN PLATELET VOLUME (BEAKER) (test oerx=573) 11.6 fL 9.4-12.3 NUCLEATED RED BLOOD CELLS (BEAKER) (test 2 /100 WBC 0-0 krpl=350) NEUTROPHILS RELATIVE PERCENT (BEAKER) (test 53 % ldil=013) LYMPHOCYTES RELATIVE PERCENT (BEAKER) (test 26 % zzit=458) MONOCYTES RELATIVE PERCENT (BEAKER) (test 17 % hnrz=330) EOSINOPHILS RELATIVE PERCENT (BEAKER) (test 2 % yjae=582) BASOPHILS RELATIVE PERCENT (BEAKER) (test 0 % mrqq=200) NEUTROPHILS ABSOLUTE COUNT (BEAKER) (test 5.44 K/ L 1.56-6.13 dicn=429) LYMPHOCYTES ABSOLUTE COUNT (BEAKER) (test 2.68 K/ L 1.18-3.74 geav=075) MONOCYTES ABSOLUTE COUNT (BEAKER) (test 1.78 K/ L 0.24-0.36 jpkm=483) EOSINOPHILS ABSOLUTE COUNT (BEAKER) (test 0.21 K/ L 0.04-0.36 dvvy=463) BASOPHILS ABSOLUTE COUNT (BEAKER) (test 0.03 K/ L 0.01-0.08 jemu=287) IMMATURE GRANULOCYTES-RELATIVE PERCENT (BEAKER) 1 % 0-1 (test srrx=4847) HEMOGLOBIN AND [id number] 04:38:00 Test Item Value Reference Range Comments HEMOGLOBIN (BEAKER) (test ycic=403) 8.3 GM/DL 11.2-15.7 HEMATOCRIT (BEAKER) (test pblo=057) 26.1 % 34.1-44.9 POCT-GLUCOSE [id number] 00:02:00 Test Item Value Reference Range Comments POC-GLUCOSE METER (BEAKER) 125 mg/dL 70-110 TESTED AT [facility] [address] [place] [address] (test qpum=3038) [facility] [address] [id number] 23:12:00 Test Item Value Reference Range Comments POTASSIUM (BEAKER) (test ckgl=367) 5.1 meq/L 3.5-5.1 [id number] 23:12:00 Test Item Value Reference Range Comments MAGNESIUM (BEAKER) (test aktw=824) 2.3 mg/dL 1.6-2.6 HEMOGLOBIN AND [id number] 22:46:00 Test Item Value Reference Range Comments HEMOGLOBIN (BEAKER) (test qnfv=281) 7.8 GM/DL 11.2-15.7 HEMATOCRIT (BEAKER) (test jjro=434) 23.9 % 34.1-44.9 BLOOD CULTURE IDENTIFICATION [id number] 20:39:00 Test Item Value Reference Range Comments LISTERIA MONOCYTOGENES (test Not detected Not detected qosv=[id number]) STAPHYLOCOCCUS (test Detected Not detected Coagulase negative Staph etex=[id number]) species (CoNS)- methicillin susceptibleFirst-line therapy: Cefazolin or Oxacillin (Oxacillin preferred if [employer] involvement) MecA NOT DETECTEDPossible contamination. The likelihood of pathogenicity is increased if the organism is observed in multiple blood cultures obtained from separate venipunctures.Reference Range: Not Detected STAPHYLOCOCCUS AUREUS (test Not detected Not detected gaif=4034961) STREPTOCOCCUS (test Not detected Not detected fayo=2528238) STREPTOCOCCUS AGALACTIAE Not detected Not detected (GROUP B) (test wrxg=8533353) STREPTOCOCCUS PNEUMONIAE Not detected Not detected (test imro=3875747) STREPTOCOCCUS PYOGENES (GROUP Not detected Not detected A) (test hfln=2750185) ACINETOBACTER BAUMANNII (test Not detected Not detected xdnh=5925143) HAEMOPHILUS INFLUENZAE (test Not detected Not detected kqoj=3650321) NEISSERIA MENINGITIDIS (test Not detected Not detected euos=4686902) ENTEROBACTERIACEAE (test Not detected Not detected slnx=8527553) ENTEROBACTER CLOACOE COMPLEX Not detected Not detected (test xqbw=0046507) KLEBSIELLA OXYTOCA (test Not detected Not detected yvco=0727922) KLEBSIELLA PNEUMONIAE (test Not detected Not detected likl=6539) PROTEUS (test nice=2122462) Not detected Not detected SERRATIA MARCESCENS (test Not detected Not detected oksg=0184073) LINDA ALBICANS (test Not detected Not detected lnup=5532167) LINDA GLABRATA (test Not detected Not detected zxrj=3932433) LINDA KRUSEI (test Not detected Not detected rtip=0630146) LINDA PARAPSILOSIS (test Not detected Not detected eyfs=0721567) LINDA TROPICALIS (test Not detected Not detected fwid=0440573) ESCHERICHIA COLI (test Not detected Not detected ymzj=3887773) METHICILLIN-RESISTANCE GENE Not detected Not detected (test usjh=3124275) VANCOMYCIN-RESISTANCE GENE Not detected (test crct=9866032) CARBAPENEM-RESISTANCE GENE Not detected (test lksm=9187144) ENTEROCOCCUS-BEAKER (test Not detected Not detected xbjh=6802446) PSEUDOMONAS AERUGINOSA-BEAKER Not detected Not detected (test nsri=1192022) Other bacteria and resistance markers not targeted by this PCR panel cannot be excluded; therefore clinical correlation and follow up of serology, culture results, and other molecular studies is required. The results are not intended to be used as the sole means for clinical diagnosis or patient management decisions. This sample was tested at the [facility] using the [employer] Blood Culture ID Panel. It is FDA cleared and has been verified and approved by the [facility] for clinical use. This laboratory is CLIA-certified and College ofAmerican [employer]ologists (CAP)-accredited to perform high complexity testing.POCT-GLUCOSE [id number] 18:12:00 Test Item Value Reference Range Comments POC-GLUCOSE METER (BEAKER) 146 mg/dL 70-110 TESTED AT [facility] [address] (test ujkz=3485) [facility] [address] LACTIC ACID, [id number] 15:57:00 Test Item Value Reference Range Comments LACTATE BLOOD VENOUS (2) (BEAKER) (test 2.2 mmol/L 0.5-2.2 jxvs=1201) Specimen slightly ictericHEMOGLOBIN AND [id number] 15:42:00 Test Item Value Reference Range Comments HEMOGLOBIN (BEAKER) (test awna=346) 8.3 GM/DL 11.2-15.7 HEMATOCRIT (BEAKER) (test dufw=041) 25.0 % 34.1-44.9 RAD, ABDOMEN/KUB, 1 VIEW [id number] 15:11:00Reason for exam:->suspected ileusShould this be performed [...] Sterneport Verified Date/Time: 12/07/2018 15:11:34 Reading Location: [facility] Reading Room Electronically signed by: JULIA STERN MD on 2018 03:11 [id number] 12:18:00 Test Item Value Reference Range Comments PROCALCITONIN (BEAKER) (test jxsp=9184) 0.09 ng/mL <0.05 SEPSIS RISK (ng/mL)Low: 0.05-0.50Intermediate: 0.51-2.00High: & gt;=2.01POCT-GLUCOSE [id number] 12:08:00 Test Item Value Reference Range Comments POC-GLUCOSE METER (BEAKER) 128 mg/dL 70-110 TESTED AT [address] (test plya=4233) [place] [id number] LACTIC ACID, [id number] 11:54:00 Test Item Value Reference Range Comments LACTATE BLOOD VENOUS (2) (BEAKER) (test 1.7 mmol/L 0.5-2.2 udmu=5749) POCT-GLUCOSE [id number] 09:43:00 Test Item Value Reference Range Comments POC-GLUCOSE METER (BEAKER) 142 mg/dL 70-110 TESTED AT [address] (test inne=3914) [place] [id number] POCT-GLUCOSE [id number] 09:41:00 Test Item Value Reference Range Comments POC-GLUCOSE METER (BEAKER) 147 mg/dL 70-110 TESTED AT [address] (test iqan=3829) [place] [id number] POCT-GLUCOSE [id number] 09:38:00 Test Item Value Reference Range Comments POC-GLUCOSE METER (BEAKER) 149 mg/dL 70-110 TESTED AT [address] (test qbzx=2323) [place] [id number] POCT-GLUCOSE [id number] 09:38:00 Test Item Value Reference Range Comments POC-GLUCOSE METER (BEAKER) 147 mg/dL 70-110 TESTED AT [address] (test skca=9103) [place] [id number] VANCOMYCIN LEVEL, [id number] 09:37:00 Test Item Value Reference Range Comments VANCOMYCIN TROUGH (BEAKER) (test uzpq=111) 10.5 ug/mL 10.0-20.0 POCT-GLUCOSE [id number] 09:35:00 Test Item Value Reference Range Comments POC-GLUCOSE METER (BEAKER) 161 mg/dL 70-110 TESTED AT [address] (test ddkd=7057) [place] [id number] HEMOGLOBIN AND [id number] 09:18:00 Test Item Value Reference Range Comments HEMOGLOBIN (BEAKER) (test tzcb=272) 9.3 GM/DL 11.2-15.7 HEMATOCRIT (BEAKER) (test bzil=179) 28.0 % 34.1-44.9 RAD, CHEST, 1 VIEW, NON [id number] 09:12:00Reason for exam:->Picc line placementShould this be [...] Verified Date/ Time: 12/07/2018 09:12:03 Reading Location: [facility] Reading Room RAD , ABDOMEN/KUB, 1 VIEW [id number] 04:39:00Reason for exam:->Concern for SBO vs Ileus [...] Goldman MDReportVerified Date/Time: 12/07/2018 04:39:54 Reading Location: [address] Reading Room [id number] 04:12:00 Test Item Value Reference Range Comments PHOSPHORUS (BEAKER) (test ckuo=819) 3.5 mg/dL 2.3-4.7 [id number] 04:12:00 Test Item Value Reference Range Comments MAGNESIUM (BEAKER) (test podz=897) 1.8 mg/dL 1.6-2.6 BASIC METABOLIC [id number] 04:12:00 Test Item Value Reference Range Comments SODIUM (BEAKER) (test 141 meq/L 136-145 xsse=817) POTASSIUM (BEAKER) (test 3.5 meq/L 3.5-5.1 xscg=319) CHLORIDE (BEAKER) (test 109 meq/L 98-107 pwqm=096) CO2 (BEAKER) (test 21 meq/L 22-29 nwjz=967) BLOOD UREA NITROGEN 27 mg/dL 7-21 (BEAKER) (test xhpy=640) CREATININE (BEAKER) (test 0.77 mg/dL 0.57-1.25 qunw=053) GLUCOSE RANDOM (BEAKER) 144 mg/dL 70-105 (test hdsu=926) CALCIUM (BEAKER) (test 8.6 mg/dL 8.4-10.2 aqek=833) EGFR (BEAKER) (test 76 mL/min/1.73 sq m ESTIMATED GFR IS NOT ngjc=8856) ACCURATE CREATININE CLEARANCE IN PREDICTING GLOMERULAR FILTRATION RATE. ESTIMATED GFR IS NOT APPLICABLE FOR DIALYSIS PATIENTS. Specimen slightly ictericHEPATIC FUNCTION [id number] 04:12:00 Test Item Value Reference Range Comments TOTAL PROTEIN (BEAKER) (test qmwe=793) 5.9 gm/dL 6.0-8.3 ALBUMIN (BEAKER) (test hali=9913) 3.4 g/dL 3.5-5.0 BILIRUBIN TOTAL (BEAKER) (test tqfm=406) 2.3 mg/dL 0.2-1.2 BILIRUBIN DIRECT (BEAKER) (test nrjt=494) 1.0 mg/dL 0.1-0.5 ALKALINE PHOSPHATASE (BEAKER) (test ugon=433) 78 U/L 40-150 AST (SGOT) (BEAKER) (test jpxy=131) 204 U/L 5-34 ALT (SGPT) (BEAKER) (test baaf=920) 392 U/L 6-55 Specimen slightly ictericLACTIC ACID, [id number] 03:49:00 Test Item Value Reference Range Comments LACTATE BLOOD VENOUS (2) 2.3 mmol/L 0.5-2.2 Specimen slightly hemolyzed (BEAKER) (test iubq=4801) Specimen slightly ictericPT/[id number] 03:47:00 Test Item Value Reference Range Comments PROTIME (BEAKER) (test ngwk=646) 16.3 seconds 11.9-14.2 INR (BEAKER) (test pwyw=981) 1.4 <=5.9 PARTIAL THROMBOPLASTIN TIME (BEAKER) (test 25.9 seconds 22.5-36.0 xbfg=307) Effective 10/24/2018: PT Reference Range ChangeNew: 11.9-14.2 Previous: 11.7- 14.7RECOMMENDED COUMADIN/WARFARIN INR THERAPY RANGESSTANDARD DOSE: 2.0-3.0 Includes: PROPHYLAXIS for venous thrombosis, systemic embolization; TREATMENT for venous thrombosis and/or pulmonary embolus.HIGH RISK: Target INR is2.5-3.5 for patients wiht mechanical heart valves.[id number] 03:47:00 Test Item Value Reference Range Comments FIBRINOGEN LEVEL (BEAKER) (test aehf=189) 252 mg/dl 225-434 CBC W/PLT COUNT & AUTO [id number] 03:43:00 Test Item Value Reference Range Comments WHITE BLOOD CELL COUNT (BEAKER) (test uuvf=779) 14.3 K/ L 3.5-10.5 RED BLOOD CELL COUNT (BEAKER) (test tgxy=679) 3.04 M/ L 3.93-5.22 HEMOGLOBIN (BEAKER) (test fxbu=890) 9.6 GM/DL 11.2-15.7 HEMATOCRIT (BEAKER) (test lgvj=530) 28.9 % 34.1-44.9 MEAN CORPUSCULAR VOLUME (BEAKER) (test sjdr=526) 95.1 fL 79.4-94.8 MEAN CORPUSCULAR HEMOGLOBIN (BEAKER) (test 31.6 pg 25.6-32.2 dzdi=877) MEAN CORPUSCULAR HEMOGLOBIN CONC (BEAKER) (test 33.2 GM/DL 32.2-35.5 wxgm=570) RED CELL DISTRIBUTION WIDTH (BEAKER) (test 22.7 % 11.7-14.4 pezs=544) PLATELET COUNT (BEAKER) (test thge=102) 133 K/CU MM 150-450 MEAN PLATELET VOLUME (BEAKER) (test rlwv=908) 12.0 fL 9.4-12.3 NUCLEATED RED BLOOD CELLS (BEAKER) (test 3 /100 WBC 0-0 aomn=494) NEUTROPHILS RELATIVE PERCENT (BEAKER) (test 67 % swai=776) LYMPHOCYTES RELATIVE PERCENT (BEAKER) (test 17 % klxf=049) MONOCYTES RELATIVE PERCENT (BEAKER) (test 15 % ksxm=575) EOSINOPHILS RELATIVE PERCENT (BEAKER) (test 0 % kngn=537) BASOPHILS RELATIVE PERCENT (BEAKER) (test 0 % icxy=107) NEUTROPHILS ABSOLUTE COUNT (BEAKER) (test 9.64 K/ L 1.56-6.13 wcdg=965) LYMPHOCYTES ABSOLUTE COUNT (BEAKER) (test 2.41 K/ L 1.18-3.74 ayzn=135) MONOCYTES ABSOLUTE COUNT (BEAKER) (test 2.13 K/ L 0.24-0.36 jtvv=706) EOSINOPHILS ABSOLUTE COUNT (BEAKER) (test 0.01 K/ L 0.04-0.36 pujr=665) BASOPHILS ABSOLUTE COUNT (BEAKER) (test 0.06 K/ L 0.01-0.08 uxjv=339) IMMATURE GRANULOCYTES-RELATIVE PERCENT (BEAKER) 1 % 0-1 (test nxiu=6211) BLOOD GAS, [id number] 00:47:00 Test Item Value Reference Range Comments PH VENOUS (BEAKER) (test pqbn=191) 7.44 7.32-7.42 PCO2 VENOUS (BEAKER) (test usim=156) 36 mmHg 41-51 PO2 VENOUS (BEAKER) (test uwtg=547) 43 mmHg 25-40 O2 SATURATION VENOUS (BEAKER) (test wcar=045) 81.3 % 40.0-70.0 HCO3 VENOUS (BEAKER) (test hkac=351) 24 mmol/L 21-29 BASE EXCESS VENOUS (BEAKER) (test qtup=564) -0.2 mmol/L -2.0-3.0 PATIENT TEMPERATURE (BEAKER) (test mnqw=7257) 36.7 C FIO2 (BEAKER) (test kmuf=5200) 21.0 % HEMOGLOBIN AND [id number] 00:36:00 Test Item Value Reference Range Comments HEMOGLOBIN (BEAKER) (test oaos=164) 9.7 GM/DL 11.2-15.7 HEMATOCRIT (BEAKER) (test nmqh=699) 29.0 % 34.1-44.9 CT, [id number] 00:24:00FINAL REPORT EXAM: CT of the abdomen [...] interstitial edema cannot be excluded. Signed: Flor Williseport VerifiedDate/Time: 12/07/2018 00:24:22 12:24 AMRAD, ABDOMEN/KUB, 1 VIEW [id number] 18: 47:00Reason for exam:->abdominal distensionShould this be [...] seen on these supine images. Signed: Macey Phipps MDReportVerified Date/Time: 12/06/2018 18:47:51 Reading Location: [address] Reading Room Electronically signed by: MACEY PHIPPS MD on 12/06 06:47 [id number] 18:17:00 Test Item Value Reference Range Comments PHOSPHORUS (BEAKER) (test 3.0 mg/dL 2.3-4.7 Specimen slightly hemolyzed ovjz=197) BASIC METABOLIC [id number] 18:17:00 Test Item Value Reference Range Comments SODIUM (BEAKER) (test 142 meq/L 136-145 rmwt=093) POTASSIUM (BEAKER) (test 3.3 meq/L 3.5-5.1 Specimen slightly xrtd=381) hemolyzed CHLORIDE (BEAKER) (test 112 meq/L 98-107 zmvn=342) CO2 (BEAKER) (test 20 meq/L 22-29 joye=049) BLOOD UREA NITROGEN 25 mg/dL 7-21 (BEAKER) (test bxzy=709) CREATININE (BEAKER) (test 0.73 mg/dL 0.57-1.25 Specimen slightly msaw=947) hemolyzed GLUCOSE RANDOM (BEAKER) 150 mg/dL 70-105 (test igqe=389) CALCIUM (BEAKER) (test 8.2 mg/dL 8.4-10.2 diym=050) EGFR (BEAKER) (test 81 mL/min/1.73 sq m ESTIMATED GFR IS NOT gqkq=8350) ACCURATE CREATININE CLEARANCE IN PREDICTING GLOMERULAR FILTRATION RATE. ESTIMATED GFR IS NOT APPLICABLE FOR DIALYSIS PATIENTS. RAD, CHEST, 1 VIEW, NON [id number] 18:15:00Reason for exam:->shortness of breathShould this be [...] Phipps MDReportVerified Date/Time: 12/06/2018 18:15:51 Reading Location: [address] Reading Room Electronically signed by: MACEY PHIPPS MD on 12/06 06:15 PMCBC W/PLT COUNT & AUTO [id number] 18:00:00 Test Item Value Reference Range Comments WHITE BLOOD CELL COUNT (BEAKER) (test pmyz=533) 12.6 K/ L 3.5-10.5 RED BLOOD CELL COUNT (BEAKER) (test tsqe=362) 2.95 M/ L 3.93-5.22 HEMOGLOBIN (BEAKER) (test lonp=314) 9.3 GM/DL 11.2-15.7 HEMATOCRIT (BEAKER) (test adqv=011) 28.1 % 34.1-44.9 MEAN CORPUSCULAR VOLUME (BEAKER) (test nexw=193) 95.3 fL 79.4-94.8 MEAN CORPUSCULAR HEMOGLOBIN (BEAKER) (test 31.5 pg 25.6-32.2 farq=346) MEAN CORPUSCULAR HEMOGLOBIN CONC (BEAKER) (test 33.1 GM/DL 32.2-35.5 jnca=698) RED CELL DISTRIBUTION WIDTH (BEAKER) (test 23.1 % 11.7-14.4 tilv=004) PLATELET COUNT (BEAKER) (test lvbd=580) 126 K/CU MM 150-450 MEAN PLATELET VOLUME (BEAKER) (test bdda=630) 11.5 fL 9.4-12.3 NUCLEATED RED BLOOD CELLS (BEAKER) (test 3 /100 WBC 0-0 wjhq=095) (CELLAVISION MANUAL DIFF)2018-12-06 18:00:00 Test Item Value Reference Range Comments NEUTROPHILS - REL (CELLAVISION)(BEAKER) (test 75 % ocsw=9666) LYMPHOCYTES - REL (CELLAVISION)(BEAKER) (test 15 % vorl=3754) MONOCYTES - REL (CELLAVISION)(BEAKER) (test 7 % sykc=2104) BASOPHILS - REL (CELLAVISION)(BEAKER) (test 1 % asqo=1386) BANDS - REL (CELLAVISION)(BEAKER) (test 2 % 0-10 wggs=5477) NEUTROPHILS - ABS (CELLAVISION)(BEAKER) (test 9.45 K/ul 1.56-6.13 fmct=1046) LYMPHOCYTES - ABS (CELLAVISION)(BEAKER) (test 1.89 K/ul 1.18-3.74 pbdd=9045) MONOCYTES - ABS (CELLAVISION)(BEAKER) (test 0.88 K/uL 0.24-0.36 ogqv=9672) BASOPHILS - ABS (CELLAVISION)(BEAKER) (test 0.13 K/uL 0.01-0.08 xqmz=5770) BANDS - ABS (CELLAVISION)(BEAKER) (test 0.25 K/uL 0.00-0.80 ycbh=6730) TOTAL COUNTED (BEAKER) (test zwjs=2576) 100 MANUAL NRBC PER 100 CELLS (BEAKER) (test 3 /100 WBC 0-0 wcaa=6461) SMUDGE CELLS (BEAKER) (test bbbu=0380) Present GIANT PLATELETS (BEAKER) (test abzv=713) Present POLYCHROMATOPHILLIC RBCS(BEAKER) (test prxt=764) 1+ few ANISOCYTOSIS (BEAKER) (test pdtb=982) 2+ moderate MICROCYTES (BEAKER) (test wqyq=087) 2+ moderate POIKILOCYTES (BEAKER) (test vlzc=948) 1+ few ELLIPTOCYTES (BEAKER) (test xfpv=145) 1+ few ARTIFACT (CELLAVISION)(BEAKER) (test wmgh=9068) Present PLATELET CONCENTRATION (CELLAVISION)(BEAKER) Decreased (test meud=6733) Received comment: User comments: Slide comments:HEMOGLOBIN AND [id number] 17:32:00 Test Item Value Reference Range Comments HEMOGLOBIN (BEAKER) (test tlav=233) 9.3 GM/DL 11.2-15.7 HEMATOCRIT (BEAKER) (test ortc=899) 28.1 % 34.1-44.9 ANTI-NUCLEAR ANTIBODY (SATNAM)2018-12-06 10:40:00 Test Item Value Reference Range Comments ANTI-NUCLEAR ANTIBODY (SATNAM) (BEAKER) (test Negative Negative hpfl=334) Test performed by IFA method.Test performed by IFA method.LACTIC ACID, [id number] 09:53:00 Test Item Value Reference Range Comments LACTATE BLOOD VENOUS (2) (BEAKER) (test 1.6 mmol/L 0.5-2.2 mdvp=8315) [id number] 09:48:00 Test Item Value Reference Range Comments AMMONIA (BEAKER) (test curw=706) 54 mol/L 18-72 POCT-GLUCOSE [id number] 06:27:00 Test Item Value Reference Range Comments POC-GLUCOSE METER (BEAKER) 181 mg/dL 70-110 TESTED AT [facility] [address] [facility] (test ihit=4894) [facility] [address] [id number] 04:38:00 Test Item Value Reference Range Comments PHOSPHORUS (BEAKER) (test 1.4 mg/dL 2.3-4.7 Specimen slightly hemolyzed sxsx=251) [id number] 04:33:00 Test Item Value Reference Range Comments MAGNESIUM (BEAKER) (test 1.9 mg/dL 1.6-2.6 Specimen slightly hemolyzed zayw=514) BASIC METABOLIC [id number] 04:33:00 Test Item Value Reference Range Comments SODIUM (BEAKER) (test 146 meq/L 136-145 zsfp=968) POTASSIUM (BEAKER) (test 3.4 meq/L 3.5-5.1 Specimen slightly jejr=702) hemolyzed CHLORIDE (BEAKER) (test 116 meq/L 98-107 bmsw=677) CO2 (BEAKER) (test 21 meq/L 22-29 evbu=629) BLOOD UREA NITROGEN 29 mg/dL 7-21 (BEAKER) (test mcse=667) CREATININE (BEAKER) (test 0.73 mg/dL 0.57-1.25 Specimen slightly xdpm=120) hemolyzed GLUCOSE RANDOM (BEAKER) 226 mg/dL 70-105 (test qnyh=104) CALCIUM (BEAKER) (test 8.0 mg/dL 8.4-10.2 zyjx=299) EGFR (BEAKER) (test 81 mL/min/1.73 sq m ESTIMATED GFR IS NOT usxv=6033) ACCURATE CREATININE CLEARANCE IN PREDICTING GLOMERULAR FILTRATION RATE. ESTIMATED GFR IS NOT APPLICABLE FOR DIALYSIS PATIENTS. HEPATIC FUNCTION [id number] 04:33:00 Test Item Value Reference Range Comments TOTAL PROTEIN (BEAKER) (test 5.2 gm/dL 6.0-8.3 Specimen slightly hemolyzed qfon=368) ALBUMIN (BEAKER) (test 3.0 g/dL 3.5-5.0 Specimen slightly hemolyzed oexe=2019) BILIRUBIN TOTAL (BEAKER) (test 1.4 mg/dL 0.2-1.2 Specimen slightly hemolyzed aiqf=204) BILIRUBIN DIRECT (BEAKER) (test 0.5 mg/dL 0.1-0.5 Specimen slightly hemolyzed ztlo=061) ALKALINE PHOSPHATASE (BEAKER) 55 U/L 40-150 (test lxdg=024) AST (SGOT) (BEAKER) (test 282 U/L 5-34 Specimen slightly hemolyzed ieuf=143) ALT (SGPT) (BEAKER) (test 443 U/L 6-55 Specimen slightly hemolyzed zzwf=401) CBC W/PLT COUNT & AUTO [id number] 04:30:00 Test Item Value Reference Range Comments WHITE BLOOD CELL COUNT (BEAKER) (test yqsb=634) 12.3 K/ L 3.5-10.5 RED BLOOD CELL COUNT (BEAKER) (test npmv=856) 2.78 M/ L 3.93-5.22 HEMOGLOBIN (BEAKER) (test ftld=171) 8.7 GM/DL 11.2-15.7 HEMATOCRIT (BEAKER) (test syis=452) 27.3 % 34.1-44.9 MEAN CORPUSCULAR VOLUME (BEAKER) (test qxns=080) 98.2 fL 79.4-94.8 MEAN CORPUSCULAR HEMOGLOBIN (BEAKER) (test 31.3 pg 25.6-32.2 goum=435) MEAN CORPUSCULAR HEMOGLOBIN CONC (BEAKER) (test 31.9 GM/DL 32.2-35.5 tusw=964) RED CELL DISTRIBUTION WIDTH (BEAKER) (test 22.3 % 11.7-14.4 vjdy=156) PLATELET COUNT (BEAKER) (test yxgx=480) 112 K/CU MM 150-450 MEAN PLATELET VOLUME (BEAKER) (test lhip=927) 11.9 fL 9.4-12.3 NUCLEATED RED BLOOD CELLS (BEAKER) (test 2 /100 WBC 0-0 rjvu=939) NEUTROPHILS RELATIVE PERCENT (BEAKER) (test 61 % mfyd=029) LYMPHOCYTES RELATIVE PERCENT (BEAKER) (test 24 % gcdf=981) MONOCYTES RELATIVE PERCENT (BEAKER) (test 12 % vgoy=042) EOSINOPHILS RELATIVE PERCENT (BEAKER) (test 2 % ocmt=348) BASOPHILS RELATIVE PERCENT (BEAKER) (test 1 % hzac=527) NEUTROPHILS ABSOLUTE COUNT (BEAKER) (test 7.52 K/ L 1.56-6.13 yvar=879) LYMPHOCYTES ABSOLUTE COUNT (BEAKER) (test 2.97 K/ L 1.18-3.74 vrsu=612) MONOCYTES ABSOLUTE COUNT (BEAKER) (test 1.44 K/ L 0.24-0.36 jrcr=252) EOSINOPHILS ABSOLUTE COUNT (BEAKER) (test 0.20 K/ L 0.04-0.36 hckc=992) BASOPHILS ABSOLUTE COUNT (BEAKER) (test 0.06 K/ L 0.01-0.08 rjlx=930) IMMATURE GRANULOCYTES-RELATIVE PERCENT (BEAKER) 1 % 0-1 (test tcur=9732) [id number] 04:29:00 Test Item Value Reference Range Comments PROTIME (BEAKER) (test qddn=329) 16.8 seconds 11.9-14.2 INR (BEAKER) (test htxy=059) 1.4 <=5.9 PARTIAL THROMBOPLASTIN TIME (BEAKER) (test 27.0 seconds 22.5-36.0 flob=876) Effective 10/24/2018: PT Reference Range ChangeNew: 11.9-14.2 Previous: 11.7- 14.7RECOMMENDED COUMADIN/WARFARIN INR THERAPY RANGESSTANDARD DOSE: 2.0-3.0 Includes: PROPHYLAXIS for venous thrombosis, systemic embolization; TREATMENT for venous thrombosis and/or pulmonary embolus.HIGH RISK: Target INR is2.5-3.5 for patients wiht mechanical heart valves.[id number] 04:29:00 Test Item Value Reference Range Comments FIBRINOGEN LEVEL (BEAKER) (test grcd=398) 218 mg/dl 225-434 POCT-GLUCOSE [id number] 00:18:00 Test Item Value Reference Range Comments POC-GLUCOSE METER (BEAKER) 153 mg/dL 70-110 TESTED AT [address] (test awof=2677) [place] [id number] HEMOGLOBIN AND [id number] 00:17:00 Test Item Value Reference Range Comments HEMOGLOBIN (BEAKER) (test crpo=045) 9.1 GM/DL 11.2-15.7 HEMATOCRIT (BEAKER) (test wjcu=266) 27.7 % 34.1-44.9 POCT-GLUCOSE [id number] 18:00:00 Test Item Value Reference Range Comments POC-GLUCOSE METER (BEAKER) 177 mg/dL 70-110 TESTED AT [address] (test mlue=4258) [facility] [address] BASIC METABOLIC [id number] 13:48:00 Test Item Value Reference Range Comments SODIUM (BEAKER) (test 148 meq/L 136-145 jbpm=345) POTASSIUM (BEAKER) (test 3.4 meq/L 3.5-5.1 wlwx=982) CHLORIDE (BEAKER) (test 119 meq/L 98-107 zpkg=273) CO2 (BEAKER) (test 25 meq/L 22-29 tcwn=617) BLOOD UREA NITROGEN 36 mg/dL 7-21 (BEAKER) (test yawu=229) CREATININE (BEAKER) (test 0.73 mg/dL 0.57-1.25 qpgw=231) GLUCOSE RANDOM (BEAKER) 165 mg/dL 70-105 (test wfor=939) CALCIUM (BEAKER) (test 7.8 mg/dL 8.4-10.2 krva=596) EGFR (BEAKER) (test 81 mL/min/1.73 sq m ESTIMATED GFR IS NOT fyxq=2384) ACCURATE CREATININE CLEARANCE IN PREDICTING GLOMERULAR FILTRATION RATE. ESTIMATED GFR IS NOT APPLICABLE FOR DIALYSIS PATIENTS. [id number] 13:45:00 Test Item Value Reference Range Comments PHOSPHORUS (BEAKER) (test clyw=969) 2.1 mg/dL 2.3-4.7 HEMOGLOBIN AND [id number] 13:30:00 Test Item Value Reference Range Comments HEMOGLOBIN (BEAKER) (test vyfi=586) 6.9 GM/DL 11.2-15.7 HEMATOCRIT (BEAKER) (test uqlk=074) 21.5 % 34.1-44.9 POCT-GLUCOSE [id number] 12:17:00 Test Item Value Reference Range Comments POC-GLUCOSE METER (BEAKER) 179 mg/dL 70-110 TESTED AT [facility] [address] [place] [address] (test rdzs=8605) [facility] [address] CBC W/PLT COUNT & AUTO [id number] 10:50:00 Test Item Value Reference Range Comments WHITE BLOOD CELL COUNT (BEAKER) (test ulff=997) 14.7 K/ L 3.5-10.5 RED BLOOD CELL COUNT (BEAKER) (test wtzl=879) 2.30 M/ L 3.93-5.22 HEMOGLOBIN (BEAKER) (test elhq=355) 7.4 GM/DL 11.2-15.7 HEMATOCRIT (BEAKER) (test npvc=868) 22.5 % 34.1-44.9 MEAN CORPUSCULAR VOLUME (BEAKER) (test gnqo=333) 97.8 fL 79.4-94.8 MEAN CORPUSCULAR HEMOGLOBIN (BEAKER) (test 32.2 pg 25.6-32.2 hhkc=841) MEAN CORPUSCULAR HEMOGLOBIN CONC (BEAKER) (test 32.9 GM/DL 32.2-35.5 cccu=686) RED CELL DISTRIBUTION WIDTH (BEAKER) (test 22.2 % 11.7-14.4 uxbh=651) PLATELET COUNT (BEAKER) (test aihe=737) 120 K/CU MM 150-450 MEAN PLATELET VOLUME (BEAKER) (test wxru=306) 11.9 fL 9.4-12.3 NUCLEATED RED BLOOD CELLS (BEAKER) (test 2 /100 WBC 0-0 aooa=425) (CELLAVISION MANUAL DIFF)2018-12-05 10:50:00 Test Item Value Reference Range Comments NEUTROPHILS - REL (CELLAVISION)(BEAKER) (test 77 % fewu=7515) LYMPHOCYTES - REL (CELLAVISION)(BEAKER) (test 15 % kcae=7172) MONOCYTES - REL (CELLAVISION)(BEAKER) (test 8 % qkfe=7964) BANDS - REL (CELLAVISION)(BEAKER) (test 1 % 0-10 dlzr=8534) NEUTROPHILS - ABS (CELLAVISION)(BEAKER) (test 11.32 K/ul 1.56-6.13 wbbz=5094) LYMPHOCYTES - ABS (CELLAVISION)(BEAKER) (test 2.21 K/ul 1.18-3.74 gfpm=7399) MONOCYTES - ABS (CELLAVISION)(BEAKER) (test 1.18 K/uL 0.24-0.36 mmcx=2029) BANDS - ABS (CELLAVISION)(BEAKER) (test 0.15 K/uL 0.00-0.80 uhhd=4206) TOTAL COUNTED (BEAKER) (test emwx=6427) 100 MANUAL NRBC PER 100 CELLS (BEAKER) (test 3 /100 WBC 0-0 xaxn=4203) WBC MORPHOLOGY (BEAKER) (test kqan=930) Normal PLT MORPHOLOGY (BEAKER) (test vdxr=596) Normal POLYCHROMATOPHILLIC RBCS(BEAKER) (test ykgu=745) 1+ few MICROCYTES (BEAKER) (test dkln=655) 1+ few MACROCYTES (BEAKER) (test olnw=717) 1+ few OVALOCYTES (BEAKER) (test yvyr=276) 1+ few ARTIFACT (CELLAVISION)(BEAKER) (test hzak=2703) Present PLATELET CONCENTRATION (CELLAVISION)(BEAKER) Decreased (test auak=5775) Received comment: User comments: Slide comments:POCT-GLUCOSE [id number] 06: 14:00 Test Item Value Reference Range Comments POC-GLUCOSE METER (BEAKER) 173 mg/dL 70-110 TESTED AT [address] (test rnzv=2671) [facility] [address] U/S, ABDOMINAL, WITH [id number] 05:32:00Reason for exam:->evaluate portal vein, evaluate biliary [...] MDReport Verified Date/Time: 12/05/2018 05:32:17 BASIC METABOLIC [id number] 04:35:00 Test Item Value Reference Range Comments SODIUM (BEAKER) (test 150 meq/L 136-145 zkao=699) POTASSIUM (BEAKER) (test 3.6 meq/L 3.5-5.1 jpdg=334) CHLORIDE (BEAKER) (test 121 meq/L 98-107 ctls=719) CO2 (BEAKER) (test 20 meq/L 22-29 hojw=756) BLOOD UREA NITROGEN 38 mg/dL 7-21 (BEAKER) (test okhf=900) CREATININE (BEAKER) (test 0.73 mg/dL 0.57-1.25 kski=189) GLUCOSE RANDOM (BEAKER) 162 mg/dL 70-105 (test rlqe=991) CALCIUM (BEAKER) (test 8.2 mg/dL 8.4-10.2 ofbu=284) EGFR (BEAKER) (test 81 mL/min/1.73 sq m ESTIMATED GFR IS NOT xhpf=1104) ACCURATE CREATININE CLEARANCE IN PREDICTING GLOMERULAR FILTRATION RATE. ESTIMATED GFR IS NOT APPLICABLE FOR DIALYSIS PATIENTS. [id number] 04:34:00 Test Item Value Reference Range Comments PHOSPHORUS (BEAKER) (test russ=994) 2.0 mg/dL 2.3-4.7 [id number] 04:34:00 Test Item Value Reference Range Comments MAGNESIUM (BEAKER) (test dsov=295) 2.1 mg/dL 1.6-2.6 HEPATIC FUNCTION [id number] 04:34:00 Test Item Value Reference Range Comments TOTAL PROTEIN (BEAKER) (test ogzt=945) 4.9 gm/dL 6.0-8.3 ALBUMIN (BEAKER) (test rpcb=0978) 3.0 g/dL 3.5-5.0 BILIRUBIN TOTAL (BEAKER) (test deve=893) 0.9 mg/dL 0.2-1.2 BILIRUBIN DIRECT (BEAKER) (test qxbs=584) 0.5 mg/dL 0.1-0.5 ALKALINE PHOSPHATASE (BEAKER) (test ymzg=847) 50 U/L 40-150 AST (SGOT) (BEAKER) (test ajvc=266) 505 U/L 5-34 ALT (SGPT) (BEAKER) (test xqdd=161) 549 U/L 6-55 [id number] 04:15:00 Test Item Value Reference Range Comments AMMONIA (BEAKER) (test tqcy=466) 97 mol/L 18-72 LACTIC ACID, [id number] 04:10:00 Test Item Value Reference Range Comments LACTATE BLOOD VENOUS (2) (BEAKER) (test 2.6 mmol/L 0.5-2.2 uidn=8037) [id number] 03:54:00 Test Item Value Reference Range Comments PROTIME (BEAKER) (test ditt=972) 19.2 seconds 11.9-14.2 INR (BEAKER) (test opro=660) 1.7 <=5.9 PARTIAL THROMBOPLASTIN TIME (BEAKER) (test 31.6 seconds 22.5-36.0 ezjp=363) Effective 10/24/2018: PT Reference Range ChangeNew: 11.9-14.2 Previous: 11.7- 14.7RECOMMENDED COUMADIN/WARFARIN INR THERAPY RANGESSTANDARD DOSE: 2.0-3.0 Includes: PROPHYLAXIS for venous thrombosis, systemic embolization; TREATMENT for venous thrombosis and/or pulmonary embolus.HIGH RISK: Target INR is2.5-3.5 for patients wiht mechanical heart valves.[id number] 03:54:00 Test Item Value Reference Range Comments FIBRINOGEN LEVEL (BEAKER) (test tpth=155) 188 mg/dl 225-434 POCT-GLUCOSE [id number] 00:17:00 Test Item Value Reference Range Comments POC-GLUCOSE METER (BEAKER) 185 mg/dL 70-110 TESTED AT [facility] [address] (test pzeg=2978) [facility] [address] HEMOGLOBIN AND [id number] 21:43:00 Test Item Value Reference Range Comments HEMOGLOBIN (BEAKER) (test vmez=203) 8.1 GM/DL 11.2-15.7 HEMATOCRIT (BEAKER) (test dvqo=912) 24.3 % 34.1-44.9 [id number] 19:32:00 Test Item Value Reference Range Comments FERRITIN (BEAKER) (test ngds=305) 2039 ng/mL 5-275 T4, [id number] 18:58:00 Test Item Value Reference Range Comments FREE T4 (BEAKER) (test bbqz=319) 0.91 ng/dL 0.70-1.48 (CELLAVISION MANUAL DIFF)2018-12-04 18:52:00 Test Item Value Reference Range Comments NEUTROPHILS - REL (CELLAVISION)(BEAKER) (test 79 % elqt=0948) LYMPHOCYTES - REL (CELLAVISION)(BEAKER) (test 15 % sabt=1960) MONOCYTES - REL (CELLAVISION)(BEAKER) (test 4 % kknh=6331) BANDS - REL (CELLAVISION)(BEAKER) (test 1 % 0-10 tmyu=0872) NEUTROPHILS - ABS (CELLAVISION)(BEAKER) (test 14.38 K/ul 1.56-6.13 bdnq=7937) LYMPHOCYTES - ABS (CELLAVISION)(BEAKER) (test 2.73 K/ul 1.18-3.74 pjxt=8140) MONOCYTES - ABS (CELLAVISION)(BEAKER) (test 0.73 K/uL 0.24-0.36 aixa=8563) BANDS - ABS (CELLAVISION)(BEAKER) (test 0.18 K/uL 0.00-0.80 akwk=5305) TOTAL COUNTED (BEAKER) (test sntc=2173) 100 MANUAL NRBC PER 100 CELLS (BEAKER) (test 3 /100 WBC 0-0 vvwf=1546) SMUDGE CELLS (BEAKER) (test yhef=8249) Present GIANT PLATELETS (BEAKER) (test yssv=373) Present PLASMACYTOID LYMPHS(BEAKER) (test wysy=0467) Present POLYCHROMATOPHILLIC RBCS(BEAKER) (test hoap=134) 1+ few ANISOCYTOSIS (BEAKER) (test mwls=328) 1+ few MACROCYTES (BEAKER) (test qtib=394) 1+ few POIKILOCYTES (BEAKER) (test qvkg=391) 1+ few OVALOCYTES (BEAKER) (test mpxc=427) 1+ few ARTIFACT (CELLAVISION)(BEAKER) (test whgh=3693) Present HELMET CELLS (CELLAVISION)(BEAKER) (test 1+ few xyqi=3609) PLATELET CONCENTRATION (CELLAVISION)(BEAKER) Adequate (test izbg=5440) Received comment: User comments: Slide comments:[id number] 18:41:00 Test Item Value Reference Range Comments PROCALCITONIN (BEAKER) (test kzbm=9734) 0.20 ng/mL <0.05 SEPSIS RISK (ng/mL)Low: 0.05-0.50Intermediate: 0.51-2.00High: & gt;=2.01HEPATITIS A ANTIBODY, [id number] 18:27:00 Test Item Value Reference Range Comments HEPATITIS A IGG ANTIBODY (BEAKER) (test tqmx=0864) Reactive Nonreactive HEPATITIS B SURFACE [id number] 18:26:00 Test Item Value Reference Range Comments HEPATITIS B SURFACE ANTIBODY (BEAKER) (test < mIU/mL <8.0 ofcb=312) TSH/FREE T4 IF [id number] 18:26:00 Test Item Value Reference Range Comments THYROID STIMULATING HORMONE (BEAKER) (test 0.08 uIU/mL 0.35-4.94 tcdr=018) ALPHA FETOPROTEIN (AFP), TUMOR [id number] 18:26:00 Test Item Value Reference Range Comments ALPHA-FETOPROTEIN (BEAKER) (test kfyj=9367) 2.2 ng/mL <10.0 HEPATITIS A ANTIBODY, [id number] 18:26:00 Test Item Value Reference Range Comments HEPATITIS A IGM ANTIBODY (BEAKER) (test Nonreactive Nonreactive srqt=573) HEPATITIS B CORE ANTIBODY, [id number] 18:26:00 Test Item Value Reference Range Comments HEPATITIS B CORE TOTAL ANTIBODY (BEAKER) (test Nonreactive Nonreactive eizv=824) HEPATITIS B SURFACE [id number] 18:23:00 Test Item Value Reference Range Comments HEPATITIS B SURFACE ANTIGEN (2) (BEAKER) (test Nonreactive Nonreactive dvkx=0686) HEPATITIS C [id number] 18:23:00 Test Item Value Reference Range Comments HEPATITIS C ANTIBODY (BEAKER) (test vjmz=003) Nonreactive Nonreactive RAD, CHEST, 1 VIEW, NON [id number] 18:18:00Reason for exam:->hypoxemiaIs the patient ?->NoShould this [...] MDReport Verified Date/Time: 12/04/2018 18:18:54 Reading Location: [address] Consult Reading Room CBC W/PLT COUNT & AUTO [id number] 18:17:00 Test Item Value Reference Range Comments WHITE BLOOD CELL COUNT (BEAKER) (test jpjz=002) 18.2 K/ L 3.5-10.5 RED BLOOD CELL COUNT (BEAKER) (test hwjb=124) 2.70 M/ L 3.93-5.22 HEMOGLOBIN (BEAKER) (test eloa=913) 8.5 GM/DL 11.2-15.7 HEMATOCRIT (BEAKER) (test cqjw=223) 26.1 % 34.1-44.9 MEAN CORPUSCULAR VOLUME (BEAKER) (test mgib=032) 96.7 fL 79.4-94.8 MEAN CORPUSCULAR HEMOGLOBIN (BEAKER) (test 31.5 pg 25.6-32.2 zsvi=122) MEAN CORPUSCULAR HEMOGLOBIN CONC (BEAKER) (test 32.6 GM/DL 32.2-35.5 mqok=614) RED CELL DISTRIBUTION WIDTH (BEAKER) (test 22.2 % 11.7-14.4 zuze=839) PLATELET COUNT (BEAKER) (test tkee=365) 158 K/CU MM 150-450 MEAN PLATELET VOLUME (BEAKER) (test siks=182) 11.4 fL 9.4-12.3 NUCLEATED RED BLOOD CELLS (BEAKER) (test 1 /100 WBC 0-0 cnmb=273) NEUTROPHILS RELATIVE PERCENT (BEAKER) (test 71 % pdje=437) LYMPHOCYTES RELATIVE PERCENT (BEAKER) (test 18 % zlar=160) MONOCYTES RELATIVE PERCENT (BEAKER) (test 10 % aedy=674) EOSINOPHILS RELATIVE PERCENT (BEAKER) (test 0 % nakl=275) BASOPHILS RELATIVE PERCENT (BEAKER) (test 0 % unni=784) NEUTROPHILS ABSOLUTE COUNT (BEAKER) (test 12.85 K/ L 1.56-6.13 jkiq=969) LYMPHOCYTES ABSOLUTE COUNT (BEAKER) (test 3.35 K/ L 1.18-3.74 nylb=162) MONOCYTES ABSOLUTE COUNT (BEAKER) (test 1.74 K/ L 0.24-0.36 pupm=276) EOSINOPHILS ABSOLUTE COUNT (BEAKER) (test 0.01 K/ L 0.04-0.36 rkir=009) BASOPHILS ABSOLUTE COUNT (BEAKER) (test 0.08 K/ L 0.01-0.08 zzfw=666) IMMATURE GRANULOCYTES-RELATIVE PERCENT (BEAKER) 1 % 0-1 (test slfs=4771) B-TYPE NATRIURETIC FACTOR (BNP)2018-12-04 18:10:00 Test Item Value Reference Range Comments B-TYPE NATRIURETIC PEPTIDE (BEAKER) (test 155 pg/mL 0-100 vgtn=873) COMPREHENSIVE METABOLIC [id number] 18:08:00 Test Item Value Reference Range Comments TOTAL PROTEIN (BEAKER) 5.5 gm/dL 6.0-8.3 (test hcbw=250) ALBUMIN (BEAKER) (test 3.3 g/dL 3.5-5.0 kanp=1211) ALKALINE PHOSPHATASE 55 U/L 40-150 (BEAKER) (test hnne=966) BILIRUBIN TOTAL (BEAKER) 1.1 mg/dL 0.2-1.2 (test ohpi=444) SODIUM (BEAKER) (test 150 meq/L 136-145 nxgb=568) POTASSIUM (BEAKER) (test 3.5 meq/L 3.5-5.1 hpzz=308) CHLORIDE (BEAKER) (test 122 meq/L 98-107 sevf=259) CO2 (BEAKER) (test 18 meq/L 22-29 vkla=078) BLOOD UREA NITROGEN 38 mg/dL 7-21 (BEAKER) (test yfzl=016) CREATININE (BEAKER) (test 0.78 mg/dL 0.57-1.25 unnw=891) GLUCOSE RANDOM (BEAKER) 168 mg/dL 70-105 (test lpxb=719) CALCIUM (BEAKER) (test 8.5 mg/dL 8.4-10.2 mefs=349) AST (SGOT) (BEAKER) (test 825 U/L 5-34 kfty=439) ALT (SGPT) (BEAKER) (test 712 U/L 6-55 cuwx=312) EGFR (BEAKER) (test 75 mL/min/1.73 sq m ESTIMATED GFR IS NOT wyto=3623) ACCURATE CREATININE CLEARANCE IN PREDICTING GLOMERULAR FILTRATION RATE. ESTIMATED GFR IS NOT APPLICABLE FOR DIALYSIS PATIENTS. [id number] 18:07:00 Test Item Value Reference Range Comments PHOSPHORUS (BEAKER) (test ymiq=204) 2.2 mg/dL 2.3-4.7 [id number] 18:07:00 Test Item Value Reference Range Comments MAGNESIUM (BEAKER) (test osom=693) 2.0 mg/dL 1.6-2.6 CHLORIDE, RANDOM [id number] 18:03:00 Test Item Value Reference Range Comments CHLORIDE URINE (BEAKER) (test qeqd=084) 58 meq/L Reference Range: No NormalsCREATININE, RANDOM [id number] 18:03:00 Test Item Value Reference Range Comments CREATININE URINE (BEAKER) (test chnr=581) 90.3 mg/dL Reference Range: No NormalsPROTEIN, RANDOM [id number] 18:03:00 Test Item Value Reference Range Comments PROTEIN, URINE (BEAKER) (test czkq=2387) 17 mg/dL 0-14 SODIUM, RANDOM [id number] 18:03:00 Test Item Value Reference Range Comments SODIUM URINE (BEAKER) (test dgms=639) < meq/L Reference Range: No [id number] 18:02:00 Test Item Value Reference Range Comments ALPHA-1 ANTITRYPSIN (BEAKER) (test mtda=871) 156.80 mg/dL 90.00-200.00 IRON, TIBC, % SAT. (WITHOUT FERRITIN)2018-12-04 18:02:00 Test Item Value Reference Range Comments IRON (BEAKER) (test gfrn=882) 140.0 ug/dL 40.0-160.0 TOTAL IRON BINDING CAPACITY (BEAKER) (test 258 ug/dL 250-450 xthe=403) IRON % SATURATION (2) (BEAKER) (test qcba=7262) 54 % 20-55 RAD, ABDOMEN/KUB, 1 VIEW [id number] 18:00:00Reason for exam:->abdominal distentionShould this be performed [...] MDReport Verified Date/Time: 12/04/2018 18:00:28 Reading Location: [address] Consult Reading Room LACTIC ACID, [id number] 17:59:00 Test Item Value Reference Range Comments LACTATE BLOOD VENOUS (2) 5.4 mmol/L 0.5-2.2 Specimen slightly hemolyzed (BEAKER) (test tnum=7428) [id number] 17:58:00 Test Item Value Reference Range Comments AMMONIA (BEAKER) (test nxse=832) 121 mol/L 18-72 URINALYSIS W/ REFLEX URINE [id number] 17:57:00 Test Item Value Reference Range Comments COLOR (BEAKER) (test yjyv=878) Yellow CLARITY (BEAKER) (test nahz=701) Clear SPECIFIC GRAVITY UA (BEAKER) (test sjvh=747) 1.022 1.001-1.035 PH UA (BEAKER) (test mvlx=667) 6.0 5.0-8.0 PROTEIN UA (BEAKER) (test ngec=463) 10 mg/dL Negative GLUCOSE UA (BEAKER) (test tmmj=458) Negative Negative KETONES UA (BEAKER) (test quhi=518) Negative Negative BILIRUBIN UA (BEAKER) (test vsnk=232) Negative Negative BLOOD UA (BEAKER) (test fyqy=911) Moderate Negative NITRITE UA (BEAKER) (test yoiq=264) Negative Negative LEUKOCYTE ESTERASE UA (BEAKER) (test mckg=288) Small Negative UROBILINOGEN UA (BEAKER) (test kljt=072) 0.2 mg/dL 0.2-1.0 RBC UA (BEAKER) (test tihm=121) 23 /HPF WBC UA (BEAKER) (test suqs=229) 16 /HPF MUCUS (BEAKER) (test thak=0586) Rare SOURCE(BEAKER) (test kdnk=9783) [id number] 17:57:00 Test Item Value Reference Range Comments PROTIME (BEAKER) (test zbxm=954) 19.5 seconds 11.9-14.2 INR (BEAKER) (test fqpt=021) 1.7 <=5.9 PARTIAL THROMBOPLASTIN TIME (BEAKER) (test 29.0 seconds 22.5-36.0 bpcr=606) Effective 10/24/2018: PT Reference Range ChangeNew: 11.9-14.2 Previous: 11.7- 14.7RECOMMENDED COUMADIN/WARFARIN INR THERAPY RANGESSTANDARD DOSE: 2.0-3.0 Includes: PROPHYLAXIS for venous thrombosis, systemic embolization; TREATMENT for venous thrombosis and/or pulmonary embolus.HIGH RISK: Target INR is2.5-3.5 for patients wiht mechanical heart valves.[id number] 17:57:00 Test Item Value Reference Range Comments FIBRINOGEN LEVEL (BEAKER) (test scdn=665) 224 mg/dl 225-434 BLOOD GAS, [id number] 17:46:00 Test Item Value Reference Range Comments PH ARTERIAL (BEAKER) (test rckb=673) 7.46 7.35-7.45 PCO2 ARTERIAL (BEAKER) (test ipzu=962) 27 mmHg 35-45 PO2 ARTERIAL (BEAKER) (test jvqm=253) 83 mmHg 80-90 O2 SATURATION ARTERIAL (BEAKER) (test wpgs=642) 97.0 % 96.0-97.0 HCO3 ARTERIAL (BEAKER) (test rvhe=175) 19 mmol/L 21-29 BASE EXCESS ARTERIAL (BEAKER) (test dmgz=521) -4.3 mmol/L -2.0-3.0 PATIENT TEMPERATURE (BEAKER) (test ghus=4677) 36.7 C FIO2 (BEAKER) (test ylxn=9481) 40.0 %
[2019-04-22 17:41] LABS: Absolute Lymphocytes (CBC) 1.7 K/uL (0.7-4.9); Basophils % 0.9 % (0-1.3); Hematocrit 25.2 % (36.0-45.0); Lymphocytes % 30.7 % (15.3-44.8); MPV 10.5 fL (7.6-11.3); RBC Red Blood Cell Count 2.97 M/uL (3.86-4.86)
[2019-04-22 17:42] LABS: Protime INR 1.35
--- NOTE | 2019-04-22 17:50 | RAD REPORT ---
EXAM DESCRIPTION: RAD - Chest Single View - 04/22/2019 5:39 pm CLINICAL HISTORY: SOB Chest pain. COMPARISON: Chest Single View dated 12/01/2018; CHEST PA AND LAT 2 VIEW dated 06/18/2012; CHEST SINGLE VIEW dated 02/16/2012 FINDINGS: Portable technique limits examination quality. Moderate right pleural effusion is noted. Underlying infiltrate or atelectasis is likely present. The heart is normal in size. No displaced fractures.
[2019-04-22 17:58] LABS: Albumin 2.7 g/dL (3.4-5.0); Bilirubin Direct 0.3 mg/dL (0-0.2); Bilirubin Total 0.8 mg/dL (0.2-1.0); Magnesium 1.9 mg/dL (1.8-2.4); Potassium 3.6 mmol/L (3.5-5.1); Protein, Total 6.9 g/dL (6.4-8.2); Troponin (Emerg Dept Use Only) 0.02 ng/mL (0.0-0.045)
[2019-04-22] MEDS ORDERED: ONDANSETRON 4 MG/2 ML VIAL ONE ×2 (18:08→19:22)
--- NOTE | 2019-04-22 18:39 | RAD REPORT ---
EXAM DESCRIPTION: CT - Chest For Pe Angio - 04/22/2019 6:28 pm CLINICAL HISTORY: Chest pain. SOB COMPARISON: No comparisons TECHNIQUE: CT angiogram of the pulmonary arteries was performed with MIP. All CT scans are performed using dose optimization technique as appropriate and may include automated exposure control or mA/KV adjustment according to patient size. FINDINGS: No evidence of pulmonary thromboembolism. No acute aortic finding demonstrated. Moderate to large right pleural effusion with compressive atelectasis or pneumonia in the right lung base. Mild ground-glass opacities are present in both lungs. No left pleural effusion or pericardial effusion. No concerning bony finding. IMPRESSION: No evidence of pulmonary thromboembolism. Moderate to large right pleural effusion with compressive atelectasis and/or pneumonia in the right b ase.
--- NOTE | 2019-04-22 18:42 | RAD REPORT ---
EXAM DESCRIPTION: CTAbdomen Pelvis W Contrast - 04/22/2019 6:28 pm CLINICAL HISTORY: Abdominal pain. DISTENTION COMPARISON: Abdomen Pelvis W Contrast dated 04/12/2019; Abdomen Pelvis W Contrast dated 12/03/2018 TECHNIQUE: Biphasic CT imaging of the abdomen and pelvis was performed with 100 ml non-ionic IV cont rast. All CT scans are performed using dose optimization technique as appropriate and may include automated exposure control or mA/KV adjustment according to patient size. FINDINGS: Cholecystectomy clips. The liver, spleen, pancreas, adrenal glands and kidneys are within normal limits. There is mild ascites. Very a significant amount of fecal material is retained in the colon. No bowel obstruction seen. No free air. No evidence of significant lymphadenopathy. No suspicious bony findings. IMPRESSION: Very severe fecal retention in the colon seen. Mild ascites.
--- NOTE | 2019-04-22 19:07 | ER ---
Nurse's Notes [facility] Name: Kaitlyn Sesay Age: 59 yrs Sex: Female : 1960 Arrival Date: 04/22/2019 Time: 16:47 Bed 19 Private MD: Tavares Dillon R Diagnosis: Shortness of breath;Pleural effusion, not elsewhere classified-Right pleural effusion Presentation: 04/22 16:50 Presenting complaint: Patient states: two days of increasing cough and SOB. Transition la1 of care: patient was not received from another setting of care. Onset of symptoms was April 22, 2019. Risk Assessment: Do you want to hurt yourself or someone else? Patient reports no desire to harm self or others. Initial Sepsis Screen: Does the patient meet any 2 criteria? No. Patient's initial sepsis screen is negative. Does the patient have a suspected source of infection? No. Patient's initial sepsis screen is negative. Care prior to arrival: None. 16:50 Method Of Arrival: Wheelchair la1 16:50 Acuity: VIKRAM 3 la1 Triage Assessment: 22:00 Respiratory: Onset: The symptoms/episode began/occurred gradually, the patient has mild wh shortness of breath. Historical: - Allergies: 16:50 Azithromycin; la1 16:50 Cephalexin; la1 16:50 PENICILLINS; la1 16:50 Rocephin; la1 16:50 Rofecoxib; la1 16:50 Sulfa (Sulfonamide Antibiotics); la1 - PMHx: 16:50 Chronic pain; GI Bleed; liver failure; Thyroid problem; la1 - Immunization history:: Adult Immunizations up to date. - Social history:: Smoking status: Patient uses tobacco products, denies chronic smoking, but will smoke occasionally. - Ebola Screening: : Patient negative for fever greater than or equal to 101.5 degrees Fahrenheit, and additional compatible Ebola Virus Disease symptoms Patient denies exposure to infectious person. Screenin:23 Abuse screen: Denies threats or abuse. Denies injuries from another. Nutritional mg2 screening: No deficits noted. Tuberculosis screening: No symptoms or risk factors identified. Fall Risk IV access (20 points). Assessment: 17:39 General: Appears in no apparent distress. uncomfortable, Behavior is calm, cooperative, aj1 appropriate for age. Pain: Denies pain. Neuro: Level of Consciousness is awake, alert, obeys commands, Oriented to person, place, time, situation. Cardiovascular: Reports shortness of breath, Heart tones S1 S2 present Patient's skin is warm and dry. Rhythm is sinus rhythm. Respiratory: Reports shortness of breath on exertion cough that is non-productive, Airway is patent Respiratory effort is even, unlabored, Respiratory pattern is regular, symmetrical, Breath sounds with rhonchi in right posterior lower lobe. GI: No signs and/or symptoms were reported involving the gastrointestinal system. Abdomen is distended, Bowel sounds present X 4 quads. : No signs and/or symptoms were reported regarding the genitourinary system. EENT: No signs and/or symptoms were reported regarding the EENT system. Derm: No signs and/or symptoms reported regarding the dermatologic system. Skin is pink, warm \T\ dry. normal. Musculoskeletal: No signs and/or symptoms reported regarding the musculoskeletal system. Circulation, motion, and sensation intact. 18:40 Reassessment: Patient appears in no apparent distress at this time. No changes from aj1 previously documented assessment. Patient and/or family updated on plan of care and expected duration. Pain level reassessed. Patient is alert, oriented x 3, equal unlabored respirations, skin warm/dry/pink. 19:40 Reassessment: Patient and/or family updated on plan of care and expected duration. Pain aj1 level reassessed. General: Appears in no apparent distress. comfortable, Behavior is calm, cooperative, appropriate for age. Neuro: Level of Consciousness is awake, alert, obeys commands, Oriented to person, place, time, situation. Cardiovascular: Heart tones S1 S2 present Patient's skin is warm and dry. Rhythm is sinus rhythm. Respiratory: Airway is patent Respiratory effort is even, unlabored, Respiratory pattern is regular, symmetrical, Breath sounds with rhonchi in right posterior lower lobe. GI: Abdomen is distended. Derm: Skin is pink, warm \T\ dry. normal. Musculoskeletal: Circulation, motion, and sensation intact. 20:40 Reassessment: Patient appears in no apparent distress at this time. No changes from aj1 previously documented assessment. Patient and/or family updated on plan of care and expected duration. Pain level reassessed. Patient is alert, oriented x 3, equal unlabored respirations, skin warm/dry/pink. 21:50 Reassessment: Patient appears in no apparent distress at this time. No changes from aj1 previously documented assessment. Patient and/or family updated on plan of care and expected duration. Pain level reassessed. Patient is alert, oriented x 3, equal unlabored respirations, skin warm/dry/pink. 23:18 Reassessment: Patient appears in no apparent distress at this time. No changes from previously documented assessment. Patient and/or family updated on plan of care and expected duration. Pain level reassessed. Patient is alert, oriented x 3, equal unlabored respirations, skin warm/dry/pink. Patient denies pain at this time. Vital Signs: 16:49 Pulse 99; Resp 22; Temp 97.2; Pulse Ox 96% on R/A; Weight 77.11 kg; Height 5 ft. 6 in. la1 (167.64 cm); 16:50 BP 119 / 64; la1 17:50 BP 123 / 57; Pulse 94; Resp 18; Pulse Ox 97% on R/A; aj1 18:50 BP 119 / 68; Pulse 94; Resp 18; Pulse Ox 95% on R/A; aj1 19:50 BP 135 / 65; Pulse 92; Resp 18; Pulse Ox 96% on R/A; aj1 20:50 BP 126 / 92; Pulse 92; Resp 18; Pulse Ox 96% on R/A; aj1 23:19 BP 103 / 42; Pulse 91; Resp 18; Pulse Ox 92% ; wh 16:49 Body Mass Index 27.44 (77.11 kg, 167.64 cm) la1 ED Course: 16:47 Patient arrived in ED. as 16:48 Tavares Dillon MD is Private Physician. as 16:50 Triage completed. la1 16:50 Arm band placed on left wrist. la1 16:51 Danielle Lundberg RN is Primary Nurse. aj1 16:52 Dae Maldonado NP is PHCP. pm1 16:52 Brown Lynn MD is Attending Physician. pm1 17:23 No provider procedures requiring assistance completed. Inserted saline lock: 20 gauge mg2 in left antecubital area, using aseptic technique. Blood collected. 17:36 Bed in low position. Call light in reach. Side rails up X 1. Warm blanket given. Verbal jp3 reassurance given. equipment monitor phototypesetting on. Pulse ox on. NIBP on. 17:36 EKG done, by ED staff, reviewed by Dae Maldonado NP X-ray(s) taken. jp3 17:39 XRAY Chest (1 view) In Process Unspecified. EDMS 17:47 Radiology exam delayed due to lab results not completed at this time. (BUN/Creatinine). nh 18:30 CT Chest For PE Angio In Process Unspecified. EDMS 18:30 CT Abd/Pelvis - IV Contrast Only In Process Unspecified. EDMS 19:05 Haydee Lagos MD is Hospitalizing Provider. pm1 22:09 Report given to SRI Peterson. aj1 04/23 00:00 Patient admitted, IV remains in place. wh Administered Medications: 04/22 18:09 Drug: Zofran 4 mg Route: IVP; Site: left antecubital; aj1 19:00 Follow up: Response: No adverse reaction aj1 19:27 CANCELLED (Duplicate Order): Lasix 40 mg IVP once aj1 19:30 Drug: Lasix 40 mg Route: IVP; Site: left antecubital; aj1 20:00 Follow up: Response: No adverse reaction aj1 19:30 Drug: Zofran 4 mg Route: IVP; Site: left antecubital; aj1 20:00 Follow up: Response: No adverse reaction aj1 Outcome: 19:06 Decision to Hospitalize by Provider. pm1 04/23 00:00 Admitted to ER Hold. Please see [facility] for further documentation. Condition: stable Instructed on the need for admit. 07:03 Patient left the ED. ph Signatures: Dispatcher [employer] EDSD Danielle Lundberg RN RN aj1 Nani Andrew Lee RN RN la1 Lis Chin RN RN Dae Way NP SENIOR [employer]OMATION ENGINEER pm1 Fermin Willis Winsy Ady Pickens RN RN [facility] Mohan Nina jp3 Corrections: (The following items were deleted from the chart) 04/22 21:17 17:39 Respiratory: Reports shortness of breath on exertion cough that is aj1 non-productive, Airway is patent Respiratory effort is even, unlabored, Respiratory pattern is regular, symmetrical, Breath sounds with rhonchi in left posterior lower lobe aj1
--- NOTE | 2019-04-22 19:07 | EDPHYS ---
Physician Documentation [facility] Name: Kaitlyn Sesay Age: 59 yrs Sex: Female : 1960 Arrival Date: 04/22/2019 Time: 16:47 Bed 19 Private MD: Tavares Dillon R ED Physician Brown Lynn HPI: 04/22 17:05 This 59 yrs old Female presents to ER via Wheelchair with complaints of pm1 Breathing Difficulty, Shortness of breath. 17:05 The patient has shortness of breath with light activity, and the patient has a history pm1 of Liver cirrhosis with esophageal varices. Onset: The symptoms/episode began/occurred 2 day(s) ago. Duration: The symptoms are continuous, and are steadily getting worse. The patient's shortness of breath is aggravated by light activity, is alleviated by rest. Associated signs and symptoms: Pertinent positives: nausea, Pertinent negatives: chest pain, fever, vomiting, diarrhea. Severity of symptoms: in the emergency department the symptoms are worse. The patient has experienced a previous episode, Was admitted at the [facility] and told that she needs thoracentesis, she refused and elected to removed the fluid through the use of diuretics. Does not take diuretics on a regular basis. Was prescribed Lasix and spirolactone on 04/18. Patient has gained 25 pounds in 1 week. Patient with EGD and banding of 4 esophageal varices [address] Layc. Historical: - Allergies: 16:50 Azithromycin; la1 16:50 Cephalexin; la1 16:50 PENICILLINS; la1 16:50 Rocephin; la1 16:50 Rofecoxib; la1 16:50 Sulfa (Sulfonamide Antibiotics); la1 - PMHx: 16:50 Chronic pain; GI Bleed; liver failure; Thyroid problem; la1 - Immunization history:: Adult Immunizations up to date. - Social history:: Smoking status: Patient uses tobacco products, denies chronic smoking, but will smoke occasionally. - Ebola Screening: : Patient negative for fever greater than or equal to 101.5 degrees Fahrenheit, and additional compatible Ebola Virus Disease symptoms Patient denies exposure to infectious person. ROS: 17:05 Constitutional: Negative for fever, chills, and weight loss, Eyes: Negative for injury, pm1 pain, redness, and discharge, ENT: Negative for injury, pain, and discharge, Neck: Negative for injury, pain, and swelling, Cardiovascular: Negative for chest pain, palpitations, and edema. 17:05 Back: Negative for injury and pain, : Negative for injury, bleeding, discharge, and swelling, MS/Extremity: Negative for injury and deformity. 17:05 Skin: Negative for injury, rash, and discoloration, Neuro: Negative for headache, weakness, numbness, tingling, and seizure. 17:05 Respiratory: Positive for cough, shortness of breath, on exertion. Negative for wheezing. 17:05 Abdomen/GI: Positive for nausea, Negative for vomiting, diarrhea. Exam: 17:05 Constitutional: This is a well developed, well nourished patient who is awake, alert, pm1 and in no acute distress. Head/Face: Normocephalic, atraumatic. Neck: Trachea midline, no thyromegaly or masses palpated, and no cervical lymphadenopathy. Supple, full range of motion without nuchal rigidity, or vertebral point tenderness. No Meningismus. Chest/axilla: Normal chest wall appearance and motion. Nontender with no deformity. No lesions are appreciated. Cardiovascular: Regular rate and rhythm with a normal S1 and S2. No gallops, murmurs, or rubs. Normal PMI, no JVD. No pulse deficits. 17:05 Back: No spinal tenderness. No costovertebral tenderness. Full range of motion. Skin: Warm, dry with normal turgor. Normal color with no rashes, no lesions, and no evidence of cellulitis. MS/ Extremity: Pulses equal, no cyanosis. Neurovascular intact. Full, normal range of motion. 17:05 Respiratory: the patient does not display signs of respiratory distress, Respirations: normal, Breath sounds: rales, that are moderate, are heard in the right posterior middle lobe and right posterior lower lobe. 17:05 Abdomen/GI: Inspection: distension, that is mild, Bowel sounds: normal, Palpation: abdomen is soft and non-tender, in all quadrants, mass, is not appreciated, rebound tenderness, is not appreciated. 17:05 Neuro: Orientation: is normal, Motor: is normal, moves all fours. Vital Signs: 16:49 Pulse 99; Resp 22; Temp 97.2; Pulse Ox 96% on R/A; Weight 77.11 kg; Height 5 ft. 6 in. la1 (167.64 cm); 16:50 BP 119 / 64; la1 17:50 BP 123 / 57; Pulse 94; Resp 18; Pulse Ox 97% on R/A; aj1 18:50 BP 119 / 68; Pulse 94; Resp 18; Pulse Ox 95% on R/A; aj1 19:50 BP 135 / 65; Pulse 92; Resp 18; Pulse Ox 96% on R/A; aj1 20:50 BP 126 / 92; Pulse 92; Resp 18; Pulse Ox 96% on R/A; aj1 23:19 BP 103 / 42; Pulse 91; Resp 18; Pulse Ox 92% ; wh 16:49 Body Mass Index 27.44 (77.11 kg, 167.64 cm) la1 MDM: 16:52 Patient medically screened. pm1 18:46 Data reviewed: vital signs. Data interpreted: Pulse oximetry: on room air is 96 %. pm1 Interpretation: normal. 19:04 Counseling: I had a detailed discussion with the patient and/or guardian regarding: the pm1 historical points, exam findings, and any diagnostic results supporting the discharge/admit diagnosis, lab results, radiology results, the need for further work-up and treatment in the hospital. 19:06 Physician consultation: Haydee Lagos MD was contacted at 19:06, regarding admission, pm1 patient's condition, and will see patient in ED, shortly. 04/22 17:05 Order name: Basic Metabolic Panel; Complete Time: 18:05 pm1 04/22 17:05 Order name: CBC with Diff; Complete Time: 20:12 pm1 04/22 17:05 Order name: LFT's; Complete Time: 18:05 pm1 04/22 17:05 Order name: Magnesium; Complete Time: 18:05 pm1 04/22 17:05 Order name: NT PRO-BNP; Complete Time: 18:05 pm1 04/22 17:05 Order name: PT-INR; Complete Time: 17:48 pm1 04/22 17:05 Order name: Troponin (emerg Dept Use Only); Complete Time: 18:05 pm1 04/22 17:05 Order name: Flu; Complete Time: 17:54 pm1 04/22 17:06 Order name: Type And Screen; Complete Time: 18:28 pm1 04/22 19:54 Order name: CBC Smear Scan; Complete Time: 20:12 EDMS 04/23 00:18 Order name: Amylase Level EDMS 04/23 00:18 Order name: Body Fluid Cell Count EDMS 04/23 00:19 Order name: Glucose Level EDMS 04/23 00:19 Order name: Lactic Dehydrogenase EDMS 04/22 17:05 Order name: XRAY Chest (1 view); Complete Time: 17:55 pm1 04/22 17:40 Order name: CT Chest For PE Angio; Complete Time: 18:44 pm1 04/22 17:47 Order name: CT Abd/Pelvis - IV Contrast Only; Complete Time: 18:44 pm1 04/23 00:19 Order name: Protein, Total EDMS 04/23 00:19 Order name: CBC with Automated Diff EDMS 04/23 00:19 Order name: CBC with Automated Diff EDMS 04/23 00:19 Order name: Comprehensive Metabolic Panel EDMS 04/23 00:19 Order name: Comprehensive Metabolic Panel EDMS 04/23 00:19 Order name: Body Fluid Culture EDMS 04/23 00:19 Order name: Ferritin EDMS 04/23 00:19 Order name: Transferrin Sat/Iron Binding EDMS 04/23 05:54 Order name: Transferrin Sat/Iron Binding EDMS 04/23 06:12 Order name: Ferritin EDMS 04/22 17:05 Order name: EKG; Complete Time: 17:06 pm1 04/22 17:05 Order name: Cardiac monitoring; Complete Time: 17:12 pm1 04/22 17:05 Order name: EKG - Nurse/Tech; Complete Time: 18:02 pm1 04/22 17:05 Order name: IV Saline Lock; Complete Time: 17:22 pm1 04/22 17:05 Order name: Labs collected and sent; Complete Time: 17:23 pm1 04/22 17:05 Order name: O2 Per Protocol; Complete Time: 17:12 pm1 04/22 17:05 Order name: O2 Sat Monitoring; Complete Time: 17:12 pm1 04/23 00:18 Order name: CONS Pharmacy Consult EDMS 04/23 00:18 Order name: CONS Physician Consult EDMS 04/23 00:18 Order name: Regular EDMS Administered Medications: 18:09 Drug: Zofran 4 mg Route: IVP; Site: left antecubital; aj1 19:00 Follow up: Response: No adverse reaction 19:27 CANCELLED (Duplicate Order): Lasix 40 mg IVP once aj 19:30 Drug: Lasix 40 mg Route: IVP; Site: left antecubital; aj1 20:00 Follow up: Response: No adverse reaction aj1 19:30 Drug: Zofran 4 mg Route: IVP; Site: left antecubital; aj1 20:00 Follow up: Response: No adverse reaction aj1 Disposition: 04/23 07:13 Co-signature as Attending Physician, Brown Lynn MD I agree with the assessment and vinny plan of care. Disposition: 04/22/19 19:06 Hospitalization ordered by Haydee Lagos for Inpatient Admission. Preliminary diagnosis are Pleural effusion, not elsewhere classified - Right pleural effusion, Shortness of breath. - Bed requested for Telemetry/MedSurg (Inpatient). - Status is Inpatient Admission. ph - Condition is Stable. - Problem is new. - Symptoms have improved. UTI on Admission? No Signatures: Dispatcher [employer] EDMS Danielle Lundberg RN RN aj1 Brown Lynn MD MD cha Chretien, Felicia RN SRI fc Hung Weston RN RN laLis Amos RN RN Dae Maldonado, BLUEPRINTER BLUEPRINTER pm1 Kristen Pike Jose, RN RN ja1 Corrections: (The following items were deleted from the chart) 04/22 19:27 19:27 Lasix 40 mg IVP once ordered. aj1 aj1 04/23 01:51 04/22 19:06 Hospitalization Ordered by Haydee Lagos MD for Inpatient Admission. fc Preliminary diagnosis is Pleural effusion, not elsewhere classified - Right pleural effusionShortness of breath. Bed requested for Telemetry/MedSurg (Inpatient). Status is Inpatient Admission. Condition is Stable. Problem is new. Symptoms have improved. UTI on Admission? No. pm1 04/23 06:24 01:51 04/22/2019 19:06 Hospitalization Ordered by Haydee Lagos MD for Inpatient ja1 Admission. Preliminary diagnosis is Pleural effusion, not elsewhere classified - Right pleural effusionShortness of breath. Bed requested for [facility] ER HOLD. Status is Inpatient Admission. Condition is Stable. Problem is new. Symptoms have improved. UTI on Admission? No. fc 07:03 06:24 04/22/2019 19:06 Hospitalization Ordered by Haydee Lagos MD for Inpatient ph Admission. Preliminary diagnosis is Pleural effusion, not elsewhere classified - Right pleural effusionShortness of breath. Bed requested for Telemetry/MedSurg (Inpatient). Status is Inpatient Admission. Condition is Stable. Problem is new. Symptoms have improved. UTI on Admission? No. ja1
[2019-04-22] MEDS ORDERED: FUROSEMIDE 40 MG/4 ML VIAL ONE (19:22)
[2019-04-22 19:53] LABS: Anisocytosis 2+; Blood Morphology Comment NOTED (NOT SEEN); Platelet Estimate DECR; Urine White Blood Cell Casts OK
[2019-04-22 19:54] LABS: Poikilocytosis 2+
--- NOTE | 2019-04-23 00:12 | HP ---
Date of Admission: 04/22/2019 Presenting Complaint: Worsening exertional dyspnea. History Of Presenting Complaint: Ms. Lázaro Bruner is a 59-year-old female with past medical history of nonalcoholic steatohepatitis with subsequent liver cirrhosis, status post recent esophageal varices noted on EGD 1 week ago, which were Band-Aid; history of chronic back pain, on buprenorphine pain pump, who presented to the hospital because of worsening cough, congestion , as well as exertional dyspnea. Patient says symptoms have been gradually worsening since the last 2 weeks. She was evaluated by her primary 3 days ago and started on Lasix and spironolactone. She admitted to worsening symptoms. She denies any chest pain. She admits to orthopnea with persistent nocturnal dyspnea. She also admitted to worsening body swelling with increasing abdominal girth as well as leg swelling. She states she is adherent with Lasix and spironolactone but has not significantly noted any difference. On presentation in ED, CT of the chest shows large right-sided pleural effusion. Patient is being admitted for further workup. She denies any dizziness or headache. She admits to low-salt diet intake now. Past Medical History: Significant for: 1. Liver cirrhosis. 2. Chronic back pain post fall. 3. Hypothyroidism. 4. Hypertension. Past Surgical History: Includes hysterectomy, appendectomy, gallbladder surgery. Allergies: KEFLEX, PENICILLIN, ROCEPHIN, SULFA DRUG WELL ZITHROMAX. ALSO HISTORY OF ALLERGY TO STEROID WELL MELOXICAM AND VIOXX. Family History: History of liver cirrhosis in the brother due to alcoholic disease. History of colon cancer in her mother. Home Medications: Include Pantoprazole, Pravachol, Synthroid, Lasix 20, spironolactone 25, and as well as Cipro recently started. She also has pain pump. Review of Systems: All systems reviewed x14 were negative except as mentioned above. Physical Examination: Vital Signs: Blood pressure of 134/73, respiratory rate of 78, O2 saturation is 92. Patient on room air. Temperature afebrile at 98.7. General: Slightly overweight, middle-aged female, calm, not in any distress, lying in bed on room air. HEENT: Head is atraumatic, normocephalic. Pupils equal and reactive to light. Neck: No JVD. No carotid bruit. Respiratory: Crepitations over the right mid and lower base with decreased breath sounds at the bases, but good air entry on the left lung zone. No wheeze or rhonchi elicited. Cardiovascular: S1, S2. Rate and rhythm regular. GI: Distended abdomen. Positive ascites by shifting dullness. Bowel sounds positive. No hepatosplenomegaly noted. Rectal: Deferred. Extremities: 2+ pedal edema bilaterally. Neurologic: Patient is alert, oriented, conversant. No neurological focal motor deficit. Laboratory Data: WBC 5.5, hemoglobin 8.2, platelets 144. INR 1.3. BUN of 11, creatinine 0.9, potassium 3.6, sodium 143, chloride 111. Magnesium 1.9. Troponin 0.02. Pro-BNP of 223. Albumin of 2.7. Chest x-ray shows moderate right pleural effusion with underlying infiltrate or atelectasis. CT shows no evidence of pulmonary thromboembolism, no left pleural effusion or pericardial effusion, large right pleural effusion with compressive atelectasis or pneumonia in the right lung base, mild ground glass opacity in both lungs. CT of the abdomen shows significant fecal retention in the colon with no other intraabdominal pathology. Influenza A and B were negative. Impression: 1. Liver cirrhosis with generalized fluid overload. 2. Right pleural effusion, likely due to liver cirrhosis and hypoalbuminemia. 3. Anemia of chronic disease. 4. Hypertension, controlled. Plan: We will admit patient into observation. We will manage patient for the followin. Right pleural effusion, likely due to liver cirrhosis. We will start patient on albumin with Lasix diuresis for now and we will consult Pulmonary in a.m. for thoracocentesis. Need for continued low-salt diet, discussed in detail with patient. 2. Hypertension, controlled. Continue home regimen. 3. Chronic pain syndrome. Continue current pain pump. 4. Liver cirrhosis with fluid overload. Continue Lasix and spironolactone. 5. Anemia. We will obtain iron profile. Patient might benefit from IV iron if low ferritin. 6. DVT prophylaxis with subcutaneous heparin. 7. Advanced directive discussed with patient. Patient wishes to be full code. Total time spent review of record, discussed with patient, and evaluation greater than 60 minutes. EO/MODL Voice ID: [id number] RACHAEL
[2019-04-23] MEDS ORDERED: HYDRALAZINE HCL 20 MG/ML VIAL IV PRN (00:15)
[2019-04-23] MEDS ORDERED: ALBUTEROL 2.5 MG/3 ML NEB SOL NEB PRN (00:15)
[2019-04-23] MEDS ORDERED: LORazepam 2 MG/ML VIAL IV ONE (00:15)
[2019-04-23] MEDS ORDERED: FUROSEMIDE 40 MG/4 ML VIAL IV ONE (00:15)
[2019-04-23] MEDS ORDERED: LORAZEPAM 1 MG TABLET PO PRN (00:25)
[2019-04-23] MEDS ORDERED: LORazepam 2 MG/ML VIAL ONE (00:48)
[2019-04-23] MEDS ORDERED: FUROSEMIDE 40 MG/4 ML VIAL ONE (01:01)
[2019-04-23 01:27] VITALS: BMI 27.2
[2019-04-23 05:04] LABS: Absolute Lymphocytes (CBC) 1.6 K/uL (0.7-4.9); Basophils % 0.8 % (0-1.3); Hematocrit 21.4 % (36.0-45.0); Lymphocytes % 31.2 % (15.3-44.8); MPV 10.6 fL (7.6-11.3); RBC Red Blood Cell Count 2.58 M/uL (3.86-4.86)
--- NOTE | 2019-04-23 05:30 | EKG ---
Test Date: 2019-04-22 Test Time: 17:32:04 Unix Architect: LEYDA MEASUREMENT RESULTS: Intervals: Rate: 92 NJ: 122 QRSD: 78 QT: 382 QTc: 472 [place]: P: 28 NJ: 122 QRS: 55 T: 0 INTERPRETIVE STATEMENTS: Sinus rhythm with premature atrial complexes Cannot rule out Inferior infarct, age undetermined T wave abnormality, consider anterior ischemia Abnormal ECG Compared to ECG 12/03/2018 10:01:56 Atrial premature complex(es) now present Myocardial infarct finding now present T-wave abnormality now present Possible ischemia now present Electronically Signed On 04-23-19 05:30:05 MATH AND SCIENCE DIVISION CHAIR by Jonnathan Hernandez
[2019-04-23 05:53] LABS: Albumin 2.5 g/dL (3.4-5.0); Bilirubin Total 0.6 mg/dL (0.2-1.0); Potassium 3.1 mmol/L (3.5-5.1); Protein, Total 6.4 g/dL (6.4-8.2)
[2019-04-23] MEDS: HEPARIN 5000 UNIT/ML 1 ML VIAL SQ SCH ×2 (09:00→21:00)
[2019-04-23 11:45] LABS: Hematocrit 22.1 % (36.0-45.0)
[2019-04-23] MEDS: MORPHINE 2 MG/ML SYR IV PRN ×2 (14:00→22:00)
[2019-04-23] MEDS: ONDANSETRON 4 MG/2 ML VIAL IV PRN ×2 (14:01→22:00)
--- NOTE | 2019-04-23 16:05 | PN ---
Date of Progress Note: 04/23/2019 Subjective: Patient seen and examined. Chart reviewed and case discussed with RN. at the [facility]. Patient is still complaining of some shortness of breath. Case discussed with Dr. Santa as well as Dr. Lacy. Patient recently had gastroesophageal banding done last week. Medications List: Reviewed. Physical Examination: Vital Signs: Temperature 98, heart rate 91, blood pressure 97/50, respirations 20, O2 91% on room ai r. General: Awake, alert, oriented x3, in some mild distress, ill-appearing female. CV: S1, S2. Regular rate and rhythm. Peripheral pulses present. Respiratory: Diminished breath sounds. Rhonchi heard. No wheezing or stridor. Gastrointestinal: Abdomen is soft, nontender, nondistended. Positive bowel sounds. No guarding or rigidity. Extremities: No clubbing, cyanosis, or edema. Neurologic: Nonfocal. Laboratory Data: Sodium 143, potassium 3.1, chloride 108, CO2 of 29, BUN 9, creatinine 0.81, glucose 93, calcium 7.7. Iron 10, TIBC 372, transferrin 266, ferritin 9, albumin 2.5. WBC 5.1, H and H 7.2 and 21.4, platelets 135. Repeat H and H are 7.4 and 22.1. Occult blood is negative. Assessment: A 59-year-old female with: 1.Shortness of breath. 2.Liver cirrhosis with fluid overload. We will increase dose of spironolactone. 3.Anemia of chronic disease, also secondary to blood loss. Patient has had banding recently for eso phageal varices. We will monitor H and H, transfuse as needed. Consult GI. Hemoccult is negative. 4.Right-sided pleural effusion due to liver cirrhosis and hypoalbuminemia. Appreciate Pulmonology i nput. We will continue to monitor. 5.Essential hypertension, stable. We will resume home medications as appropriate. 6.Chronic pain syndrome. Patient has pain pump. 7.Deep vein thrombosis prophylaxis with heparin. Plan: We will continue fluid-restricted and sodium restricted diet. Likely discharge in the next 24 to 48 hours depending on clinical response. SA/MODL Voice ID: [id number] Report ID: [id number]
[2019-04-23] MEDS: Levofloxacin500mg IV 500 MG/100 ML BAG IV SCH (20:30)
[2019-04-23] MEDS: SPIRONOLACTONE 25 MG TABLET PO SCH (21:00)
[2019-04-23] MEDS: GABAPENTIN 300 MG CAP PO SCH (21:00)
[2019-04-23] MEDS ORDERED: SPIRONOLACTONE 25 MG TABLET PO SCH (21:00)
[2019-04-23] MEDS: ENSURE ENLIVE 237 ML CAN PO SCH (22:03)
--- NOTE | 2019-04-24 00:02 | CON ---
Date of Consultation: 04/23/2019 Reason For Consultation: End-stage liver disease, cirrhosis with ascites and large right pleural eff usion. History Of Present Illness: The patient is a 59-year-old white female with history of end-stage live r disease, cirrhosis secondary to fatty liver disease. The patient came to hospital due to worsening exertional dyspnea, shortness of breath. CT of the chest revealed a large right pleural effusion. BNP was slightly elevated to approximately 200-300 level. The patient has been on Lasix and [place] e as an outpatient. Of note, the patient had been hospitalized back in December due to upper GI bleedi ng, mainly due to esophageal varices in [place] at [facility], received banding at that time, no band ing since that time except this past Monday. The patient had been on diuretics. The patient states she was thin with a flat belly, stopped her diuretics and then the belly started to dilate again and she was recently restarted on diuretics last week with esophageal banding performed on Monday. The p dennis presented to the hospital with shortness of breath on admission yesterday. Hemoglobin was isabelle n to approximately 7.6. The patient had melena in the past at [facility], thought secondary to colit is, not esophageal varices at that time. The patient was being treated as an outpatient for the coli tis recently with Cipro and Flagyl which she had stopped, but recently restarted. Past Medical History: Significant for end-stage liver disease, cirrhosis secondary to fatty liver di sease, chronic back pain status post fall with pain pump in place, hypothyroidism, hypertension. Past Surgical History: Includes pain pump placement in right lower abdomen, hysterectomy, appendecto my, and gallbladder surgery. Allergies: KEFLEX, PENICILLIN, ROCEPHIN, SULFA DRUGS, ZITHROMAX, STEROIDS WELL MELOXICAM AND V IOXX. Family History: The patient's father of AAA (abdominal aortic aneurysm). Mother of old ag e. Another brother of alcohol abuse with cirrhosis of the liver. Another brother of colon cancer she reports. Social History: She is , with 2 children. Tobacco; 2 cigarettes per day. No alcohol. Medications: Include Protonix; Pravachol; Synthroid; Aldactone; Lasix, but she has not taken it rece ntly, so it was started. She also has a pain pump. Review of Systems: Reveals shortness of breath, dyspnea, fatigue, some edema, mild abdominal distention, slight dizzines s and lightheadedness, but no syncope. She also had melena, but no hematochezia. No hematemesis, co ffee-ground emesis, hematuria, dysuria, polyuria, polydipsia. She does have some lower extremity augustina ma. No arthritis. No muscle aches, joint aches. She does have chronic low back pain for which she takes pain pump for. No depression, anxiety noted. Physical Examination: Vital Signs: The patient is 5 foot 6, 169 pounds, BMI 27.3 kg/sq m. Temperature 97.9 degrees Fahren heit, pulse 87, respirations 18, blood pressure , O2 saturation 96%. General: She is slightly obese female, lying in bed, in no acute distress. HEENT: Normocephalic, atraumatic. Anicteric. Pupils equal, round, and reactive to light. Extraocu lar movements are intact. Oropharynx clear. Neck: Supple. No masses. Respirations: Clear to auscultation and is pretty low. Patient had decreased breath sounds in the b ases, especially on the right side of the pleural effusion. Cardiac: Regular rate and rhythm. No gallops or rubs. Abdomen: Positive bowel sounds. Soft. Mild distention. Obese. No pain. No peritoneal or Zhong sign. No rebound. Extremities: No clubbing, cyanosis. Some lower extremity edema noted. Neuro: Alert and oriented x3. Grossly nonfocal. 5/5 motor strength and light touch. Laboratory Data: The patient has a white count of 5.1, hemoglobin down to 7.2 today from 8.2 yesterd ay and then back up to 7.4 at approximately 11 o'clock. MCV of 83, platelet count of 135, polys 51%, lymphocytes 31%, monocytes 14, eosinophils 4%. PT of 15.8, INR of 1.4. Sodium 143, potassium 3.1, chloride 108, bicarb 29, BUN 9, creatinine of 0.8, glucose 93, calcium 7.7. Iron saturation 2.7%, lo w; ferritin is normal at 9. Total bilirubin 0.6, AST 23, ALT 14, alkaline phosphatase 97. Troponin I of 0.02. B-type natriuretic peptide slightly elevated at 223. Total protein 6.4, albumin 3.5, alma delia bulin 3.9. Chest x-ray revealed moderate right pleural effusion. Underlying atelectasis is present. A CT chest , thorax reveals a [id number] right pleural effusion with compressive atelectasis versus pneum onia in the right base. CT abdomen and pelvis performed yesterday revealed very severe mi ld ascites. Impression: 1.Large right pleural effusion secondary to shortness of breath. Reason for her admission, this was noted on CT of the chest. 2.End-stage liver disease secondary to nonalcoholic steatohepatitis, fatty liver disease with cirrho sis. Mild ascites noted on CT scan. potassium is 3.1-3.6, we will increase Aldactone. 3.Anemia; hemoglobin 7.6 secondary to recent melena, thought secondary to colitis on recent admissio ns to hospitals in [place], [place], status post EGD with banding in December of this year and also on monday on April 19, 2019. 4.Constipation. CT scan revealing severe fecal retention. We will need to start MiraLAX therapy. Recommendations: 1.Increase Aldactone from 25 to 50 mg p.o. b.i.d. 2.Then we will add Lasix 20 mg p.o. daily when potassium gets to 4 or higher. 3.Monitor labs. 4.Transfuse 1 unit of packed RBCs if hemoglobin goes below 7 and anemia, felt secondary to esophagea l varices. 5.Add Levaquin 500 mg daily because she is allergic to Rocephin and this is for prophylaxis for esop hageal varices in the setting of possible bleed in the past. 6.Low-sodium diet. 7.Agree with limiting IV fluids, especially normal saline. Currently, patient is not getting IV fluids. 8.MiraLAX therapy. DEEDEE/DAMI Voice ID: [id number] Report ID: [id number]
[2019-04-24 04:19] LABS: Absolute Lymphocytes (CBC) 1.9 K/uL (0.7-4.9); Basophils % 0.6 % (0-1.3); Hematocrit 21.8 % (36.0-45.0); Lymphocytes % 36.3 % (15.3-44.8); MPV 10.7 fL (7.6-11.3); RBC Red Blood Cell Count 2.61 M/uL (3.86-4.86)
[2019-04-24 04:38] LABS: Albumin 2.3 g/dL (3.4-5.0); Bilirubin Total 0.8 mg/dL (0.2-1.0); Magnesium 1.8 mg/dL (1.8-2.4); Phosphorus 2.4 mg/dL (2.5-4.9); Potassium 3.3 mmol/L (3.5-5.1); Protein, Total 6.2 g/dL (6.4-8.2)
[2019-04-24] MEDS: LEVOTHYROXINE SOD 0.125 MG TAB PO SCH (05:34)
--- NOTE | 2019-04-24 08:47 | P.CNS ---
Date of Consult: 04/24/19 Reason for Consult: Right-sided pleural effusion and shortness of breath Chief Complaint: Shortness of breath History of Present Illness: Patient is 59 years of age with a history of cirrhosis of the liver active smoker admitted with shortness of breath for the past 4-5 days associated with wheezing and chest tightness denies any fever chills or chest pain was found to have a significant right-sided pleural effusion. History of cirrhosis of the liver last GI bleed about a year ago no prior history of obstructive airways disease. She is to be heavy smoker and I was cut down still an active smoker no use of bronchodilators or oxygen at home feeling much better Allergies venom-honey bee [bee venom (honey bee)] Allergy (Intermediate, Verified 01:07) Anaphylaxis meloxicam [From Mobic] Allergy (Verified 04/23/19 01:07) Unknown rofecoxib [From Vioxx] Allergy (Verified 04/23/19 01:07) Unknown azithromycin [From Zithromax Z-Dioni] Adverse Reaction (Mild, Verified 04/23/19 01 :07) sob/heart racing vomiting ceftriaxone sodium [From Rocephin] Adverse Reaction (Mild, Verified 04/23/19 01: 07) swelling cephalexin monohydrate [From Keflex] Adverse Reaction (Mild, Verified 04/23/19 01:07) swelling Penicillins Adverse Reaction (Mild, Verified 04/23/19 01:07) swelling Sulfa (Sulfonamide Antibiotics) [Sulfa(Sulfonamide Antibiotics)] Adverse Reaction (Mild, Verified 04/23/19 01:07) Rash OXY MEDS Allergy (Uncoded 04/23/19 01:07) Unknown steroids Adverse Reaction (Mild, Uncoded 04/23/19 01:07) swelling Home Medications: Ciprofloxacin HCl 1 tab PO BID 04/23/19 Furosemide 20 mg PO DAILY 04/23/19 Gabapentin 600 mg PO BID 04/23/19 Levothyroxine [Synthroid] 125 mcg PO [id number] 04/23/19 Metronidazole 500 mg PO Q6H 04/23/19 Pantoprazole [Protonix Tab] 40 mg PO DAILY 04/23/19 Pravastatin Sodium 40 mg PO BEDTIME 04/23/19 Spironolactone 25 mg PO BID 04/23/19 - Past Medical/Surgical History Diabetic: No -: HTN -: Hypothyroid -: chronic pain -: slipped disc -: Gi Bleed -: Liver Failure -: gallbladder -: , hysterectomy -: appendix -: pain pump R implant - Family History Brother Medical History: Liver disease - Social History Smoking Status: Current some day smoker Alcohol use: No CD- Drugs: No Caffeine use: Yes Place of Residence: Home Review of Systems 10-point ROS is otherwise unremarkable General: Weakness Respiratory: Shortness of Breath Physical Examination Temp Pulse Resp BP Pulse Ox 99.0 F 93 H 18 95/60 93 04/24/19 04:30 04/24/19 04:30 04/24/19 04:30 04/24/19 04:30 04/24/19 04:30 General: Alert, Oriented x3, Oriented x2 HEENT: Atraumatic Neck: Supple Respiratory: Diminished (Slightly diminished air) Cardiovascular: No edema ( entry at the right base), Normal pulses, Regular rate /rhythm Gastrointestinal: Normal bowel sounds, Soft and benign, Non-distended - Problems (1) Pleural effusion associated with hepatic disorder Current Visit: Yes Status: Acute Plan: Patient is 59 years of age admitted with shortness of breath I suspect that she has underlying COPD in addition patient has cirrhosis of the liver seen by GI has a right-sided pleural effusion no evidence of sepsis patient is mildly anemic CTs of the chest and abdomen reviewed no evidence of thromboembolism I recommend discharge home on low-dose prednisone 10 mg twice a day for 10 days in addition to Advair or Symbicort. Patient has been advised to stop smoking she will need outpatient pulmonary function test thoracentesis right now as not indicated I doubt if this is causing symptoms may need outpatient thoracenteses if she becomes very symptomatic any case patient is rather reluctant to have a procedure done right none wants to go home Dc antibiotics
[2019-04-24] MEDS: ONDANSETRON 4 MG/2 ML VIAL IV PRN ×2 (08:56→17:13)
--- NOTE | 2019-04-24 08:57 | ECHO ---
HEIGHT: 5 ft 6 in WEIGHT: 169 lb 0 oz DATE OF STUDY: 04/23/[address]: Josiah Barlow MD 2-DIMENSIONAL: YES M.MODE: YES DOPPLER: YES COLOR FLOW: YES TDS: PORTABLE: DEFINITY: BUBBLE STUDY: DIAGNOSIS: SHORTNESS OF BREATH, POSSIBLE CHF. CARDIAC HISTORY: CATHERIZATION: NO SURGERY: NO PROSTHETIC VALVE: NO PACEMAKER: NO MEASUREMENTS (cm) DIASTOLIC (NORMALS) SYSTOLIC (NORMALS) IVSd 0.7 (0.6-1.2) LA Diam 3.5 (1.9-4.0) LVEF 82% LVIDd 4.3 (3.5-5.7) LVIDs 2.1 (2.0-3.5) %FS 51% LVPWd 0.8 (0.6-1.2) Ao Diam 2.6 (2.0-3.7) 2 DIMENSIONAL ASSESSMENT: RIGHT ATRIUM: NORMAL LEFT ATRIUM: NORMAL RIGHT VENTRICLE: NORMAL LEFT VENTRICLE: NORMAL TRICUSPID VALVE: NORMAL MITRAL VALVE: NORMAL PULMONIC VALVE: NORMAL AORTIC VALVE: NORMAL PERICARDIAL EFFUSION: NONEN AORTIC ROOT: NORMAL LEFT VENTRICULAR WALL MOTION: NORMAL DOPPLER/COLOR FLOW: TRACE MITRAL REGURGITATION AND TRICUSPID REGURGITATION. COMMENTS: TRACE MITRAL REGURGITATION AND TRICUSPID REGURGITATION. NORMAL LEFT VENTRICULAR EJECTION FRACTION AND SIZE. NO WALL MOTION ABNORMALITY. NO PERICARDIAL EFFUSION. TECHNOLOGIST: KAYY ÁLVAREZ
[2019-04-24] MEDS: POLYETHYL GLY 3350 17 GM/DOSE PO SCH (08:58)
[2019-04-24] MEDS: SPIRONOLACTONE 25 MG TABLET PO SCH ×2 (08:58→21:32)
[2019-04-24] MEDS: FUROSEMIDE 20 MG TABLET PO SCH (08:59)
[2019-04-24] MEDS: GABAPENTIN 300 MG CAP PO SCH ×2 (08:59→21:34)
[2019-04-24] MEDS: PANTOPRAZOLE 40MG TABLET PO SCH (08:59)
[2019-04-24] MEDS: HEPARIN 5000 UNIT/ML 1 ML VIAL SQ SCH ×2 (09:00→21:34)
[2019-04-24] MEDS: ENSURE ENLIVE 237 ML CAN PO SCH ×2 (09:00→21:36)
[2019-04-24] MEDS: MORPHINE 2 MG/ML SYR IV PRN ×3 (09:16→21:34)
[2019-04-24] MEDS ORDERED: POTASSIUM CL SA 10 MEQ TAB PO ONE (12:00)
[2019-04-24 13:14] LABS: Urine Appearance CLEAR; Urine Bilirubin NEGATIVE (NEG); Urine Blood NEGATIVE (NEG); Urine Color ORANGE; Urine Glucose NEGATIVE (NEG); Urine Protein TRACE (NEG); Urine Specific Gravity >=1.030 (1.005-1.030); Urine Urobilinogen 0.2 mg/dL (0.2-1.0); Urine pH 6.5 (5.0-7.0)
[2019-04-24 13:16] LABS: Urine Microscopic Reflex ORDER UMIC
[2019-04-24 13:28] LABS: Urine Bacteria <20 /HPF (<20); Urine Culture Reflex Order REFLEXED; Urine RBC <5 /HPF (NONE SEEN)
[2019-04-24 13:29] LABS: Urine Mucus MOD /HPF (NONE SEEN)
--- NOTE | 2019-04-24 16:46 | PN ---
Date of Progress Note: 04/24/2019 Subjective: Patient seen and examined. Chart reviewed and case discussed with RN and Dr. Santa. Patient still having some shortness of breath, hypoxic on room air at 87%, otherwise states she feels better. Medications: List reviewed. Physical Examination: Vital Signs: Temperature 98.3, heart rate 87, blood pressure 90/47, saturation 90% on room air, as low as 87% on room air. General: Awake, alert, oriented x3, ill-appearing female, in mild respiratory distress. CV: S1, S2. Regular rate and rhythm. Peripheral pulses present. Respiratory: Diminished breath sounds. No wheezing or stridor. Gastrointestinal: Abdomen is soft, nontender, nondistended. Positive bowel sounds. Extremities: No clubbing, cyanosis, or edema. Neurologic: Nonfocal. Laboratory Data: Sodium 142, potassium 3.3, chloride 108, CO2 of 29, BUN 9, creatinine 0.69, glucose 82, calcium 7.7, phosphorus 2.4, magnesium 1.8. Albumin 2.3. WBC 5.2, H and H 7.6, 21.8, platelets 130, neutrophils 46.6%. Echocardiogram shows EF of 82%. Trace mitral regurg and tricuspid regurg. No wall motion abnormality. No pericardial effusion. Assessment: 59-year-old female with: 1. Shortness of breath, hypoxia. Patient is still requiring supplemental oxygen, desaturating at 87% on room air secondary to pleural effusion and liver cirrhosis. 2. Right-sided pleural effusion. No indication for thoracentesis at this time secondary to liver cirrhosis. 3. Liver cirrhosis with fluid overload. Spironolactone dose has been increased. 4. Acute on chronic anemia secondary to blood loss. Patient had recent banding for esophageal varices. We will continue to monitor H and H, transfuse as needed. Appreciate Dr. Lacy's input. 5. Essential hypertension. Patient is currently hypotensive. Spironolactone dose was increased. May need to cut back down to 50 daily. 6. Chronic pain syndrome. The patient has pain pump. 7. Deep venous thrombosis prophylaxis with heparin. 8. Hypokalemia. We will replace and monitor. 9. Severe protein-calorie malnutrition. Albumin is 2.3. Plan: Adjust Aldactone dose. Follow up with GI. Continue with diuretics. Patient will likely be discharged in next 24 hours once able to be weaned off O2. SA/MODL Voice ID: [id number] Report ID: [id number] MTDEddie
[2019-04-24 18:13] LABS: Hematocrit 26.2 % (36.0-45.0)
[2019-04-24] MEDS: Levofloxacin500mg IV 500 MG/100 ML BAG IV SCH (21:33)
[2019-04-25] MEDS: MORPHINE 2 MG/ML SYR IV PRN (01:17)
[2019-04-25] MEDS: ONDANSETRON 4 MG/2 ML VIAL IV PRN (01:17)
[2019-04-25 04:27] LABS: Absolute Lymphocytes (CBC) 1.5 K/uL (0.7-4.9); Basophils % 0.6 % (0-1.3); Lymphocytes % 31.5 % (15.3-44.8); MPV 10.5 fL (7.6-11.3); RBC Red Blood Cell Count 2.62 M/uL (3.86-4.86)
[2019-04-25 04:51] LABS: Albumin 2.3 g/dL (3.4-5.0); Bilirubin Total 0.6 mg/dL (0.2-1.0); Potassium 3.8 mmol/L (3.5-5.1); Protein, Total 6.2 g/dL (6.4-8.2)
[2019-04-25] MEDS: IBUPROFEN 400 MG TAB PO PRN ×2 (04:57→14:39)
[2019-04-25] MEDS: LEVOTHYROXINE SOD 0.125 MG TAB PO SCH (04:58)
[2019-04-25 08:05] LABS: Hematocrit 21.1 % (36.0-45.0)
[2019-04-25] MEDS: HEPARIN 5000 UNIT/ML 1 ML VIAL SQ SCH (08:58)
[2019-04-25] MEDS: POLYETHYL GLY 3350 17 GM/DOSE PO SCH (08:58)
[2019-04-25] MEDS: PANTOPRAZOLE 40MG TABLET PO SCH (08:58)
[2019-04-25] MEDS: GABAPENTIN 300 MG CAP PO SCH ×2 (08:58→21:43)
[2019-04-25] MEDS: SPIRONOLACTONE 25 MG TABLET PO SCH ×2 (08:58→21:43)
[2019-04-25] MEDS: FUROSEMIDE 20 MG TABLET PO SCH (08:58)
[2019-04-25] MEDS: ENSURE ENLIVE 237 ML CAN PO SCH ×2 (08:59→21:00)
[2019-04-25] MEDS ORDERED: FUROSEMIDE 20 MG/ 2ML VIAL IV SCH (10:00)
[2019-04-25] MEDS ORDERED: NA CHLORIDE 0.9% 250 ML ONE (10:34)
--- NOTE | 2019-04-25 15:04 | PN ---
Date of Progress Note: 04/25/2019 Subjective: Patient seen and examined. Chart reviewed and case discussed with RN. Patient requiring blood this morning. Otherwise, still short of breath. Medications: List reviewed. Physical Examination: Vital Signs: Temperature 98.3, heart rate 82, blood pressure 104/45, respirations 17, O2 of 90% on 2 L via nasal cannula. General: Awake, alert, oriented x3. Ill-appearing female. CV: S1, S2. Regular rate and rhythm. Peripheral pulses present. Respiratory: Diminished breath sounds at the right base. Some crackles present. No wheezing or stridor. No use of accessory muscles. Gastrointestinal: Abdomen is soft, nontender, nondistended. Positive bowel sounds. No guarding or rigidity. Extremities: No clubbing, cyanosis. Edema is improved. Neurologic: Nonfocal. Laboratory Data: Sodium 139, potassium 3.8, chloride 106, CO2 of 30, BUN 9, creatinine 0.72, glucose 95, calcium 7.8, albumin 2.3. WBC 4.8, H and H 7.1 and 22, platelets 114. Repeat H and H are 7 and 21.1. Assessment: A 59-year-old female with: 1. Acute respiratory distress with hypoxia and shortness of breath. Still on supplemental oxygen, desaturating to 87% on room air. We will continue to wean off as tolerated. Hypoxia secondary to pleural effusion and liver cirrhosis and fluid overload. 2. Right-sided pleural effusion secondary to liver cirrhosis. Continue diuretics. 3. Liver cirrhosis with fluid overload secondary to nonalcoholic fatty liver steatosis. Continue diuretics. 4. Hypokalemia, corrected. 5. Essential hypertension. The patient's blood pressure now on the low side after adjustment to diuretics. We will continue to monitor. 6. Chronic pain syndrome. Patient has pain pump in place. 7. Severe protein-calorie malnutrition. Albumin 2.3. 8. Deep venous thrombosis prophylaxis. DC heparin. SCDs 9. Thrombocytopenia. We will discontinue heparin due to thrombocytopenia. Ambulate patient. 10. Acute blood loss anemia secondary to gastroesophageal varices. Patient's hemoglobin is dropped to 7 this morning. We will transfuse 1 unit PRBCs and repeat H and H. Appreciate Dr. Lacy's input. Patient had recent banding. No further hematemesis. Plan: Likely discharge in the next 24-48 hours depending on clinical response. Patient is still requiring supplemental oxygen, has decreased oxygen carrying capacity due to the anemia. /DAMI Voice ID: [id number] Report ID: [id number] MTDD
[2019-04-25 19:56] LABS: Hematocrit 25.1 % (36.0-45.0)
[2019-04-25] MEDS ORDERED: MELATONIN 5 MG TABLET PO PRN (21:09)
[2019-04-25] MEDS: Levofloxacin500mg IV 500 MG/100 ML BAG IV SCH (21:46)
[2019-04-26 04:12] LABS: Absolute Lymphocytes (CBC) 1.4 K/uL (0.7-4.9); Basophils % 1.1 % (0-1.3); Hematocrit 25.1 % (36.0-45.0); Lymphocytes % 31.6 % (15.3-44.8); MPV 10.9 fL (7.6-11.3); RBC Red Blood Cell Count 3.03 M/uL (3.86-4.86)
[2019-04-26 04:36] LABS: Albumin 2.3 g/dL (3.4-5.0); Bilirubin Total 0.7 mg/dL (0.2-1.0); Potassium 3.9 mmol/L (3.5-5.1); Protein, Total 6.3 g/dL (6.4-8.2)
[2019-04-26] MEDS: LEVOTHYROXINE SOD 0.125 MG TAB PO SCH (06:13)
[2019-04-26] MEDS: PANTOPRAZOLE 40MG TABLET PO SCH (08:47)
[2019-04-26] MEDS: GABAPENTIN 300 MG CAP PO SCH (08:47)
[2019-04-26] MEDS: FUROSEMIDE 20 MG TABLET PO SCH (08:48)
[2019-04-26] MEDS: ENSURE ENLIVE 237 ML CAN PO SCH (08:49)
[2019-04-26] MEDS: POLYETHYL GLY 3350 17 GM/DOSE PO SCH (08:49)
[2019-04-26] MEDS: SPIRONOLACTONE 25 MG TABLET PO SCH (08:54)
[2019-04-26 09:14] VITALS: O2SAT 96
--- NOTE | 2019-04-26 10:24 | P.PN ---
Subjective Date of Service: 04/26/19 Chief Complaint: Pleural effusion and shortness of breath Subjective: Improving (Patient is improving no complaints she has very hypoxic of waiting for home O2 denies any cough fever chills) Review of Systems Unremarkable Physical Examination - Vital Signs Temperature: 97.9 F Blood Pressure: 102/55 Pulse: 83 Respirations: 18 Pulse Ox (%): 91 - Physical Exam General: Alert, In no apparent distress, Oriented x3 Respiratory: Clear to auscultation bilaterally, Diminished (Diminished on the right side), Rhonchi/gurgles (Rhonchi left greater than the right) Cardiovascular: No edema Assessment & Plan - Problems (Diagnosis) (1) Pleural effusion associated with hepatic disorder Current Visit: Yes Status: Acute Plan: Patient admitted with a pleural effusion presume COPD heavy smoker waiting oxygen I have ordered a repeat chest x-ray in a fax in prescription for prednisone and Advair do re-evaluate in 1 or 2 weeks no evidence of sepsis
--- NOTE | 2019-04-26 11:55 | RAD REPORT ---
EXAM DESCRIPTION: [facility] Single View04/26/2019 11:42 am CLINICAL HISTORY: Right pleural effusion COMPARISON: April 22 FINDINGS: Tubing overlies the right hemithorax. Presumably it overlies the patient and should be cor related clinically The right pleural effusion appears less prominent on the current exam. It probably is moderate in siz e Right basilar atelectasis Left lung appears clear of acute infiltrate. The heart is normal size
[2019-04-26 16:14] VITALS: BP 98/75; TEMP 98.1
--- NOTE | 2019-04-26 22:55 | DS ---
Date of Discharge: 04/26/2019 Consultants: Dr. Santa with Pulmonology, Dr. Lacy with GI. Admitting Diagnoses: 1. Right pleural effusion. 2. Liver cirrhosis. 3. Generalized fluid overload. 4. Anemia of chronic disease. 5. Essential hypertension. Discharge Diagnoses: 1. Acute respiratory distress with hypoxia secondary to pleural effusion and liver cirrhosis with volume overload. 2. Right-sided pleural effusion secondary to liver cirrhosis, improved with diuretics. 3. Liver cirrhosis with anasarca and secondary to nonalcoholic fatty liver steatosis. 4. Acute blood loss anemia secondary to gastroesophageal varices, status post 1 unit of PRBC transfusion. 5. Hypokalemia, corrected. 6. Essential hypertension, stable. 7. Chronic pain syndrome, pain pump in place. 8. Severe protein-calorie malnutrition, albumin 2.3. 9. Thrombocytopenia likely due to liver cirrhosis. Hospital Course: Patient is a 59-year-old female, with nonalcoholic fatty liver cirrhosis, comes in with exertional dyspnea. The patient found to have pleural effusion and was short of breath required supplemental oxygen. Patient was started on diuretics. Her Aldactone dose was doubled. Patient was also having some anemia. Hemoglobin dropped below 7. She had to be transfused 1 unit PRBCs. Her GI doctor, Dr. Lacy, was consulted. Patient recently had banding of her gastroesophageal varices. She did not have any acute bleeding during the hospital stay. Patient did well. She was seen by Pulmonology. Her inhalers and medications were adjusted. She was counseled regarding her COPD. Overall, the patient did well. She was still hypoxic on room air and therefore home O2 was set up. The patient's electrolytes were corrected. She did have some thrombocytopenia, which is related to her liver dysfunction. Her cultures remained negative. Occult blood was negative. Influenza screen was also negative. Urine culture grew out mixed bhakti. Patient was then cleared for discharge. She was doing well, was diuresed well. She was able to ambulate without significant shortness of breath, but did become hypoxic that is why she was requiring oxygen. Discharge Condition: Stable. Activity: No strenuous activity. Medications: As per medication reconciliation list. Followup: Follow up with primary care physician in 2-3 days. Follow up with bone char kiln operator, Dr. Santa in 2 weeks. Follow up with GI, Dr. Lacy in 1 week. Return to ER for worsening condition. Physical Examination: General: Awake, alert, and oriented x3. No acute distress. CV: S1, S2. Respiratory: Moving air well. Some diminished breath sounds on the right base. Extremities: No clubbing, cyanosis, or edema. Abdomen: Soft, nontender, nondistended. Positive bowel sounds. Neurologic: Nonfocal. Total time spent discharging the patient was 35 minutes. ADDENDUM: Patient was saturating around 93% on room air. Home O2 still had not been set up. [employer] cleared for DC without O2 as it was no longer needed. Agree with his assessment. /MODWard Voice ID: [id number] Report ID: [id number] MTDEddie
== END 2019-04-26 18:50 | disposition home or self-care (01) | DRG 433 ==
LOC: ER 16:46 → OBSVTOIN 04-23 00:18 → ERHOLD 04-23 00:18 → 4TH 04-23 06:43
PROVIDERS: ADMIT Internal Medicine; ATTEND Family Medicine
PROC: 30233N1 Transfusion of Nonautologous Red Blood Cells into Peripheral Vein, Percutaneous Approach (ICD-10-PCS; principal; 2019-04-25)
DX: K74.60 Unspecified cirrhosis of liver (principal); R18.8 Other ascites; D62 Acute posthemorrhagic anemia; E46 Unspecified protein-calorie malnutrition; I85.10 Secondary esophageal varices without bleeding; J90 Pleural effusion, not elsewhere classified; K75.81 Nonalcoholic steatohepatitis (NASH); G89.4 Chronic pain syndrome; M54.9 Dorsalgia, unspecified; E03.9 Hypothyroidism, unspecified; I10 Essential (primary) hypertension; D63.8 Anemia in other chronic diseases classified elsewhere; E88.09 Other disorders of plasma-protein metabolism, not elsewhere classified; K59.00 Constipation, unspecified; R09.02 Hypoxemia; E87.6 Hypokalemia; R06.03 Acute respiratory distress; D69.6 Thrombocytopenia, unspecified
CPT/HCPCS: 36415; 36430; 71045; 71275; 74177; 76700; 80048; 80053; 80076; 81003; 81015; 82274; 82728; 83540; 83735; 83880; 84100; 84466; 84484; 85014; 85018; 85025; 85610; 86850; 86900; 86901; 87086; 87088; 87804; 93005; 93306; 96374; 96375; 99285; J1644; J1940; J2270; J2405; J7030; P9016; Q9967

== ENCOUNTER 2019-05-07 09:45 | Day surgery (SDC) | payer OTHER ==
--- OUTSIDE RECORDS SUMMARY | 2019-05-07 09:52 | XMS REPORT ---
:1960 [facility] [address] [place] [address] [place] [address] Care Team Providers Name Role Phone DONAVON MISTRY Unavailable Unavailable YRN PORTILLO Unavailable Unavailable Problems This patient has no known problems. Allergies, Adverse Reactions, Alerts This patient has no known allergies or adverse reactions. Medications This patient has no known medications. 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 Small bowel NOSB. Gastric [...] evaluated Immunohistochemistry technical testing was performed at [facility], Pathology Laboratory where it was [...] (BEAKER) (test 207 mg/dL 70-[address] [facility] [address] [place] [address] mvyy=8647) [facility] [address] POCT-GLUCOSE [id number] 08:03:00 Test Item Value Reference Range Comments POC-GLUCOSE METER (BEAKER) 117 mg/dL 70-110 TESTED AT [address] (test loox=6508) [place] [address] [id number] 06:09:00 Test Item Value Reference Range Comments MAGNESIUM (BEAKER) (test mnbo=338) 1.9 mg/dL 1.6-2.6 BASIC METABOLIC [id number] 06:09:00 Test Item Value Reference Range Comments SODIUM (BEAKER) (test 136 meq/L 136-145 kabe=625) POTASSIUM (BEAKER) (test 3.8 meq/L 3.5-5.1 zsld=336) CHLORIDE (BEAKER) (test 100 meq/L 98-107 gbch=480) CO2 (BEAKER) (test 29 meq/L 22-29 avoe=531) BLOOD UREA NITROGEN 10 mg/dL 7-21 (BEAKER) (test wgzf=074) CREATININE (BEAKER) (test 0.71 mg/dL 0.57-1.25 fpdu=248) GLUCOSE RANDOM (BEAKER) 100 mg/dL 70-105 (test bxuj=831) CALCIUM (BEAKER) (test 8.6 mg/dL 8.4-10.2 ydjo=976) EGFR (BEAKER) (test 84 mL/min/1.73 sq m ESTIMATED GFR IS NOT gtan=4158) ACCURATE CREATININE CLEARANCE IN PREDICTING GLOMERULAR FILTRATION RATE. ESTIMATED GFR IS NOT APPLICABLE FOR DIALYSIS PATIENTS. HEPATIC FUNCTION [id number] 06:09:00 Test Item Value Reference Range Comments TOTAL PROTEIN (BEAKER) (test fokh=480) 5.8 gm/dL 6.0-8.3 ALBUMIN (BEAKER) (test uivp=1388) 3.3 g/dL 3.5-5.0 BILIRUBIN TOTAL (BEAKER) (test aayx=996) 1.5 mg/dL 0.2-1.2 BILIRUBIN DIRECT (BEAKER) (test hqqt=626) 0.9 mg/dL 0.1-0.5 ALKALINE PHOSPHATASE (BEAKER) (test cdji=644) 70 U/L 40-150 AST (SGOT) (BEAKER) (test gdty=014) 38 U/L 5-34 ALT (SGPT) (BEAKER) (test cusa=046) 44 U/L 6-55 [id number] 05:47:00 Test Item Value Reference Range Comments PROTIME (BEAKER) (test grup=255) 17.3 seconds 11.9-14.2 INR (BEAKER) (test msaa=428) 1.5 <=5.9 PARTIAL THROMBOPLASTIN TIME (BEAKER) (test 36.2 seconds 22.5-36.0 fvxn=775) Effective 10/24/2018: PT Reference Range ChangeNew: 11.9-14.2 Previous: 11.7- 14.7RECOMMENDED COUMADIN/WARFARIN INR THERAPY RANGESSTANDARD DOSE: 2.0-3.0 Includes: PROPHYLAXIS for venous thrombosis, systemic embolization; TREATMENT for venous thrombosis and/or pulmonary embolus.HIGH RISK: Target INR is2.5-3.5 for patients wiht mechanical heart valves.CBC W/PLT COUNT & AUTO [id number] 05:46:00 Test Item Value Reference Range Comments WHITE BLOOD CELL COUNT (BEAKER) (test pjur=151) 8.4 K/ L 3.5-10.5 RED BLOOD CELL COUNT (BEAKER) (test sgxt=188) 2.61 M/ L 3.93-5.22 HEMOGLOBIN (BEAKER) (test ynbk=704) 8.3 GM/DL 11.2-15.7 HEMATOCRIT (BEAKER) (test avkk=096) 25.5 % 34.1-44.9 MEAN CORPUSCULAR VOLUME (BEAKER) (test rnme=547) 97.7 fL 79.4-94.8 MEAN CORPUSCULAR HEMOGLOBIN (BEAKER) (test 31.8 pg 25.6-32.2 ocwt=382) MEAN CORPUSCULAR HEMOGLOBIN CONC (BEAKER) (test 32.5 GM/DL 32.2-35.5 fhky=651) RED CELL DISTRIBUTION WIDTH (BEAKER) (test 20.8 % 11.7-14.4 gruj=325) PLATELET COUNT (BEAKER) (test kxwa=809) 89 K/CU MM 150-450 MEAN PLATELET VOLUME (BEAKER) (test uvjz=270) 11.3 fL 9.4-12.3 NUCLEATED RED BLOOD CELLS (BEAKER) (test 0 /100 WBC 0-0 cctd=929) NEUTROPHILS RELATIVE PERCENT (BEAKER) (test 55 % hcwq=454) LYMPHOCYTES RELATIVE PERCENT (BEAKER) (test 27 % gebx=520) MONOCYTES RELATIVE PERCENT (BEAKER) (test 16 % gbgz=370) EOSINOPHILS RELATIVE PERCENT (BEAKER) (test 2 % ysgb=444) BASOPHILS RELATIVE PERCENT (BEAKER) (test 1 % ruit=857) NEUTROPHILS ABSOLUTE COUNT (BEAKER) (test 4.57 K/ L 1.56-6.13 ngfu=769) LYMPHOCYTES ABSOLUTE COUNT (BEAKER) (test 2.23 K/ L 1.18-3.74 adkh=468) MONOCYTES ABSOLUTE COUNT (BEAKER) (test guqq=786) 1.30 K/ L 0.24-0.36 EOSINOPHILS ABSOLUTE COUNT (BEAKER) (test 0.18 K/ L 0.04-0.36 jhqx=543) BASOPHILS ABSOLUTE COUNT (BEAKER) (test vrer=778) 0.04 K/ L 0.01-0.08 IMMATURE GRANULOCYTES-RELATIVE PERCENT (BEAKER) 1 % 0-1 (test stdh=7715) POCT-GLUCOSE [id number] 23:48:00 Test Item Value Reference Range Comments POC-GLUCOSE METER (BEAKER) 182 mg/dL 70-110 TESTED AT [address] (test rydk=2194) [facility] [address] POCT-GLUCOSE [id number] 18:04:00 Test Item Value Reference Range Comments POC-GLUCOSE METER (BEAKER) 95 mg/dL 70-110 TESTED AT [address] (test waqp=1850) [facility] [address] HEMOGLOBIN AND [id number] 17:04:00 Test Item Value Reference Range Comments HEMOGLOBIN (BEAKER) (test ovcw=390) 8.8 GM/DL 11.2-15.7 HEMATOCRIT (BEAKER) (test iyuy=951) 27.4 % 34.1-44.9 BLOOD GAS, [id number] 15:45:00 Test Item Value Reference Range Comments PH ARTERIAL (BEAKER) (test cwjd=001) 7.55 7.35-7.45 PCO2 ARTERIAL (BEAKER) (test vvkq=008) 31 mmHg 35-45 PO2 ARTERIAL (BEAKER) (test pwjq=953) 62 mmHg 80-90 O2 SATURATION ARTERIAL (BEAKER) (test bvhz=348) 94.5 % 96.0-97.0 HCO3 ARTERIAL (BEAKER) (test bkrz=454) 27 mmol/L 21-29 BASE EXCESS ARTERIAL (BEAKER) (test ygbg=906) 4.5 mmol/L -2.0-3.0 PATIENT TEMPERATURE (BEAKER) (test lcta=8312) 37.0 C Please draw blood w/ patient on room air and sitting for at least 15 minutes prior to lab drawPOCT-GLUCOSE [id number] 11:29:00 Test Item Value Reference Range Comments POC-GLUCOSE METER (BEAKER) 205 mg/dL 70-110 TESTED AT [address] (test zypc=2631) [place] [id number] RAD, CHEST, 1 VIEW, NON [id number] 08:46:00Reason for exam:->shortness of breathShould this be [...] MDReport Verified Date/Time: 12/14/2018 08:46:53 Reading Location: [facility] Radiology Reading Room Electronically signed by: DAPHNE BISHOP M.D. on 08:46 AMPOCT-GLUCOSE [id number] 08:21:00 Test Item Value Reference Range Comments POC-GLUCOSE METER (BEAKER) 107 mg/dL 70-[address] [facility] [address] (test olft=0164) [facility] [address] HEMOGLOBIN [id number] 08:02:00 Test Item Value Reference Range Comments HEMOGLOBIN A1C (BEAKER) (test ahyw=992) 5.1 % 4.3-6.1 [id number] 07:51:00 Test Item Value Reference Range Comments MAGNESIUM (BEAKER) (test ywza=754) 1.8 mg/dL 1.6-2.6 BASIC METABOLIC [id number] 07:51:00 Test Item Value Reference Range Comments SODIUM (BEAKER) (test 137 meq/L 136-145 pazx=790) POTASSIUM (BEAKER) (test 3.3 meq/L 3.5-5.1 uqex=482) CHLORIDE (BEAKER) (test 100 meq/L 98-107 ouox=148) CO2 (BEAKER) (test 28 meq/L 22-29 vugy=133) BLOOD UREA NITROGEN 11 mg/dL 7-21 (BEAKER) (test auin=962) CREATININE (BEAKER) (test 0.65 mg/dL 0.57-1.25 yzaa=548) GLUCOSE RANDOM (BEAKER) 91 mg/dL 70-105 (test nfux=104) CALCIUM (BEAKER) (test 8.3 mg/dL 8.4-10.2 bjeh=262) EGFR (BEAKER) (test 93 mL/min/1.73 sq m ESTIMATED GFR IS NOT kwcy=7480) ACCURATE CREATININE CLEARANCE IN PREDICTING GLOMERULAR FILTRATION RATE. ESTIMATED GFR IS NOT APPLICABLE FOR DIALYSIS PATIENTS. Specimen slightly ictericHEPATIC FUNCTION [id number] 07:51:00 Test Item Value Reference Range Comments TOTAL PROTEIN (BEAKER) (test hjxn=097) 5.4 gm/dL 6.0-8.3 ALBUMIN (BEAKER) (test sbzp=3206) 3.2 g/dL 3.5-5.0 BILIRUBIN TOTAL (BEAKER) (test mpht=158) 1.9 mg/dL 0.2-1.2 BILIRUBIN DIRECT (BEAKER) (test vajs=415) 0.9 mg/dL 0.1-0.5 ALKALINE PHOSPHATASE (BEAKER) (test asqe=595) 63 U/L 40-150 AST (SGOT) (BEAKER) (test umjw=181) 40 U/L 5-34 ALT (SGPT) (BEAKER) (test ozoo=958) 48 U/L 6-55 Specimen slightly ictericCBC W/PLT COUNT & AUTO [id number] 05:44 :00 Test Item Value Reference Range Comments WHITE BLOOD CELL COUNT (BEAKER) (test vbwz=184) 8.1 K/ L 3.5-10.5 RED BLOOD CELL COUNT (BEAKER) (test noln=785) 2.55 M/ L 3.93-5.22 HEMOGLOBIN (BEAKER) (test bjkj=401) 7.9 GM/DL 11.2-15.7 HEMATOCRIT (BEAKER) (test tucg=388) 25.1 % 34.1-44.9 MEAN CORPUSCULAR VOLUME (BEAKER) (test cnpm=954) 98.4 fL 79.4-94.8 MEAN CORPUSCULAR HEMOGLOBIN (BEAKER) (test 31.0 pg 25.6-32.2 tyqe=774) MEAN CORPUSCULAR HEMOGLOBIN CONC (BEAKER) (test 31.5 GM/DL 32.2-35.5 hpuf=285) RED CELL DISTRIBUTION WIDTH (BEAKER) (test 21.1 % 11.7-14.4 zkps=013) PLATELET COUNT (BEAKER) (test qhvp=019) 81 K/CU MM 150-450 MEAN PLATELET VOLUME (BEAKER) (test jnah=696) 12.1 fL 9.4-12.3 NUCLEATED RED BLOOD CELLS (BEAKER) (test 0 /100 WBC 0-0 szvc=360) NEUTROPHILS RELATIVE PERCENT (BEAKER) (test 55 % tgob=442) LYMPHOCYTES RELATIVE PERCENT (BEAKER) (test 28 % opcm=612) MONOCYTES RELATIVE PERCENT (BEAKER) (test 13 % vmrm=900) EOSINOPHILS RELATIVE PERCENT (BEAKER) (test 3 % nicu=933) BASOPHILS RELATIVE PERCENT (BEAKER) (test 1 % bkdi=987) NEUTROPHILS ABSOLUTE COUNT (BEAKER) (test 4.46 K/ L 1.56-6.13 eill=013) LYMPHOCYTES ABSOLUTE COUNT (BEAKER) (test 2.25 K/ L 1.18-3.74 vmis=323) MONOCYTES ABSOLUTE COUNT (BEAKER) (test odex=988) 1.09 K/ L 0.24-0.36 EOSINOPHILS ABSOLUTE COUNT (BEAKER) (test 0.22 K/ L 0.04-0.36 ovao=962) BASOPHILS ABSOLUTE COUNT (BEAKER) (test jwch=989) 0.06 K/ L 0.01-0.08 IMMATURE GRANULOCYTES-RELATIVE PERCENT (BEAKER) 1 % 0-1 (test sqdj=1150) [id number] 05:41:00 Test Item Value Reference Range Comments PROTIME (BEAKER) (test fahr=933) 18.5 seconds 11.9-14.2 INR (BEAKER) (test vspg=810) 1.6 <=5.9 PARTIAL THROMBOPLASTIN TIME (BEAKER) (test 38.0 seconds 22.5-36.0 ugyy=695) Effective 10/24/2018: PT Reference Range ChangeNew: 11.9-14.2 Previous: 11.7- 14.7RECOMMENDED COUMADIN/WARFARIN INR THERAPY RANGESSTANDARD DOSE: 2.0-3.0 Includes: PROPHYLAXIS for venous thrombosis, systemic embolization; TREATMENT for venous thrombosis and/or pulmonary embolus.HIGH RISK: Target INR is2.5-3.5 for patients wiht mechanical heart valves.POCT-GLUCOSE [id number] 00:43:00 Test Item Value Reference Range Comments POC-GLUCOSE METER (BEAKER) 131 mg/dL 70-110 TESTED AT [address] (test oosf=3069) [facility] [address] POCT-GLUCOSE [id number] 17:27:00 Test Item Value Reference Range Comments POC-GLUCOSE METER (BEAKER) 133 mg/dL 70-110 TESTED AT [place] [id number] (test vqov=4717) [facility] [address] POCT-GLUCOSE [id number] 14:27:00 Test Item Value Reference Range Comments POC-GLUCOSE METER (BEAKER) 136 mg/dL 70-[address] [facility] [address] (test jlvm=9178) [facility] [address] POCT-GLUCOSE [id number] 12:53:00 Test Item Value Reference Range Comments POC-GLUCOSE METER (BEAKER) 207 mg/dL 70-[address] [facility] [address] (test rizv=8500) [facility] [address] [id number] 07:55:00 Test Item Value Reference Range Comments PHOSPHORUS (BEAKER) (test sorw=291) 2.9 mg/dL 2.3-4.7 [id number] 07:55:00 Test Item Value Reference Range Comments MAGNESIUM (BEAKER) (test eavp=383) 1.9 mg/dL 1.6-2.6 BASIC METABOLIC [id number] 07:55:00 Test Item Value Reference Range Comments SODIUM (BEAKER) (test 138 meq/L 136-145 qycr=700) POTASSIUM (BEAKER) (test 3.5 meq/L 3.5-5.1 wrpq=760) CHLORIDE (BEAKER) (test 103 meq/L 98-107 bgid=486) CO2 (BEAKER) (test 27 meq/L 22-29 tpxk=162) BLOOD UREA NITROGEN 14 mg/dL 7-21 (BEAKER) (test nyrb=951) CREATININE (BEAKER) (test 0.72 mg/dL 0.57-1.25 hjle=064) GLUCOSE RANDOM (BEAKER) 112 mg/dL 70-105 (test arlr=985) CALCIUM (BEAKER) (test 8.8 mg/dL 8.4-10.2 hdks=189) EGFR (BEAKER) (test 83 mL/min/1.73 sq m ESTIMATED GFR IS NOT alnx=3558) ACCURATE CREATININE CLEARANCE IN PREDICTING GLOMERULAR FILTRATION RATE. ESTIMATED GFR IS NOT APPLICABLE FOR DIALYSIS PATIENTS. Specimen slightly ictericHEPATIC FUNCTION [id number] 07:55:00 Test Item Value Reference Range Comments TOTAL PROTEIN (BEAKER) (test sdsi=619) 6.0 gm/dL 6.0-8.3 ALBUMIN (BEAKER) (test xheh=9271) 3.6 g/dL 3.5-5.0 BILIRUBIN TOTAL (BEAKER) (test rljz=775) 2.1 mg/dL 0.2-1.2 BILIRUBIN DIRECT (BEAKER) (test nfjx=310) 1.0 mg/dL 0.1-0.5 ALKALINE PHOSPHATASE (BEAKER) (test ddpf=846) 67 U/L 40-150 AST (SGOT) (BEAKER) (test mwnt=846) 44 U/L 5-34 ALT (SGPT) (BEAKER) (test qgtb=839) 64 U/L 6-55 Specimen slightly ictericPOCT-GLUCOSE [id number] 07:52:00 Test Item Value Reference Range Comments POC-GLUCOSE METER (BEAKER) 117 mg/dL 70-[address] [facility] [address] (test svvl=0049) [place] [address] CBC W/PLT COUNT & AUTO [id number] 06:01:00 Test Item Value Reference Range Comments WHITE BLOOD CELL COUNT (BEAKER) (test vxcw=717) 10.1 K/ L 3.5-10.5 RED BLOOD CELL COUNT (BEAKER) (test zlyk=492) 2.79 M/ L 3.93-5.22 HEMOGLOBIN (BEAKER) (test edjr=923) 8.6 GM/DL 11.2-15.7 HEMATOCRIT (BEAKER) (test cakm=298) 28.0 % 34.1-44.9 MEAN CORPUSCULAR VOLUME (BEAKER) (test haht=706) 100.4 fL 79.4-94.8 MEAN CORPUSCULAR HEMOGLOBIN (BEAKER) (test 30.8 pg 25.6-32.2 hgia=206) MEAN CORPUSCULAR HEMOGLOBIN CONC (BEAKER) (test 30.7 GM/DL 32.2-35.5 vhbz=909) RED CELL DISTRIBUTION WIDTH (BEAKER) (test 21.1 % 11.7-14.4 hfuw=629) PLATELET COUNT (BEAKER) (test egae=642) 89 K/CU MM 150-450 MEAN PLATELET VOLUME (BEAKER) (test sgen=067) 11.6 fL 9.4-12.3 NUCLEATED RED BLOOD CELLS (BEAKER) (test 0 /100 WBC 0-0 ayhs=380) NEUTROPHILS RELATIVE PERCENT (BEAKER) (test 65 % jgsl=101) LYMPHOCYTES RELATIVE PERCENT (BEAKER) (test 19 % wguk=277) MONOCYTES RELATIVE PERCENT (BEAKER) (test 13 % iuje=157) EOSINOPHILS RELATIVE PERCENT (BEAKER) (test 2 % sfac=615) BASOPHILS RELATIVE PERCENT (BEAKER) (test 1 % mxko=824) NEUTROPHILS ABSOLUTE COUNT (BEAKER) (test 6.56 K/ L 1.56-6.13 rjbn=684) LYMPHOCYTES ABSOLUTE COUNT (BEAKER) (test 1.87 K/ L 1.18-3.74 vinj=244) MONOCYTES ABSOLUTE COUNT (BEAKER) (test bfmw=091) 1.34 K/ L 0.24-0.36 EOSINOPHILS ABSOLUTE COUNT (BEAKER) (test 0.23 K/ L 0.04-0.36 ravw=013) BASOPHILS ABSOLUTE COUNT (BEAKER) (test ubdy=453) 0.06 K/ L 0.01-0.08 IMMATURE GRANULOCYTES-RELATIVE PERCENT (BEAKER) 1 % 0-1 (test zese=5334) [id number] 05:56:00 Test Item Value Reference Range Comments PROTIME (BEAKER) (test nzer=636) 18.7 seconds 11.9-14.2 INR (BEAKER) (test mjvp=071) 1.7 <=5.9 PARTIAL THROMBOPLASTIN TIME (BEAKER) (test 39.7 seconds 22.5-36.0 vjov=911) Effective 10/24/2018: PT Reference Range ChangeNew: 11.9-14.2 Previous: 11.7- 14.7RECOMMENDED COUMADIN/WARFARIN INR THERAPY RANGESSTANDARD DOSE: 2.0-3.0 Includes: PROPHYLAXIS for venous thrombosis, systemic embolization; TREATMENT for venous thrombosis and/or pulmonary embolus.HIGH RISK: Target INR is2.5-3.5 for patients wiht mechanical heart valves.BLOOD [id number] 02:01:00 Test Item Value Reference Range Comments CULTURE (BEAKER) (test pqmt=7399) No growth in 5 days BLOOD [id number] 02:01:00 Test Item Value Reference Range Comments CULTURE (BEAKER) (test oyqf=8570) No growth in 5 days POCT-GLUCOSE [id number] 00:06:00 Test Item Value Reference Range Comments POC-GLUCOSE METER (BEAKER) 118 mg/dL 70-110 TESTED AT [address] (test kwnb=9951) [facility] [address] POCT-GLUCOSE [id number] 17:25:00 Test Item Value Reference Range Comments POC-GLUCOSE METER (BEAKER) 105 mg/dL 70-[address] [facility] [address] (test slrr=4309) [facility] [address] HEMOGLOBIN AND [id number] 14:25:00 Test Item Value Reference Range Comments HEMOGLOBIN (BEAKER) (test fzon=101) 8.9 GM/DL 11.2-15.7 HEMATOCRIT (BEAKER) (test zutq=547) 28.5 % 34.1-44.9 Contact hospitalist if Hgb <7.0RAD, ABDOMEN/KUB, 1 VIEW [id number] 14:09: 00Reason for exam:->abd distentionFINAL REPORT Abdomen [...] Verified Date/ Time: 12/12/2018 14:09:05 Reading Location: [address] Consult Reading Room RAD, CHEST, 1 VIEW, NON [id number] 14:06:00Reason for exam:->hypoxiaShould this be performed at [...] Jenkins Verified Date/Time: 12/12/2018 14:06:55 Reading Location: [facility] C0[facility] Consult Reading Room POCT-GLUCOSE [id number] 12:31:00 Test Item Value Reference Range Comments POC-GLUCOSE METER (BEAKER) 194 mg/dL 70-[address] [facility] [address] (test iwjb=3749) [facility] [address] POCT-GLUCOSE [id number] 07:44:00 Test Item Value Reference Range Comments POC-GLUCOSE METER (BEAKER) 116 mg/dL 70-[address] [facility] [address] (test jled=2285) [facility] [address] [id number] 06:16:00 Test Item Value Reference Range Comments PHOSPHORUS (BEAKER) (test suaq=634) 2.8 mg/dL 2.3-4.7 [id number] 06:16:00 Test Item Value Reference Range Comments MAGNESIUM (BEAKER) (test zltx=728) 1.9 mg/dL 1.6-2.6 BASIC METABOLIC [id number] 06:16:00 Test Item Value Reference Range Comments SODIUM (BEAKER) (test 140 meq/L 136-145 yvas=084) POTASSIUM (BEAKER) (test 3.8 meq/L 3.5-5.1 mplf=232) CHLORIDE (BEAKER) (test 106 meq/L 98-107 nbdn=614) CO2 (BEAKER) (test 29 meq/L 22-29 jaij=944) BLOOD UREA NITROGEN 16 mg/dL 7-21 (BEAKER) (test opyt=960) CREATININE (BEAKER) (test 0.73 mg/dL 0.57-1.25 unff=782) GLUCOSE RANDOM (BEAKER) 101 mg/dL 70-105 (test dcdk=325) CALCIUM (BEAKER) (test 8.8 mg/dL 8.4-10.2 babl=102) EGFR (BEAKER) (test 81 mL/min/1.73 sq m ESTIMATED GFR IS NOT mnab=7212) ACCURATE CREATININE CLEARANCE IN PREDICTING GLOMERULAR FILTRATION RATE. ESTIMATED GFR IS NOT APPLICABLE FOR DIALYSIS PATIENTS. Specimen slightly ictericHEPATIC FUNCTION [id number] 06:16:00 Test Item Value Reference Range Comments TOTAL PROTEIN (BEAKER) (test nisg=976) 5.5 gm/dL 6.0-8.3 ALBUMIN (BEAKER) (test uefk=0785) 3.6 g/dL 3.5-5.0 BILIRUBIN TOTAL (BEAKER) (test xvra=495) 2.1 mg/dL 0.2-1.2 BILIRUBIN DIRECT (BEAKER) (test njaj=168) 1.0 mg/dL 0.1-0.5 ALKALINE PHOSPHATASE (BEAKER) (test pbjy=064) 52 U/L 40-150 AST (SGOT) (BEAKER) (test uaia=531) 39 U/L 5-34 ALT (SGPT) (BEAKER) (test jcdl=624) 70 U/L 6-55 Specimen slightly ictericPT/[id number] 05:33:00 Test Item Value Reference Range Comments PROTIME (BEAKER) (test qetp=132) 19.9 seconds 11.9-14.2 INR (BEAKER) (test gffi=731) 1.8 <=5.9 PARTIAL THROMBOPLASTIN TIME (BEAKER) (test 38.2 seconds 22.5-36.0 vjko=400) Effective 10/24/2018: PT Reference Range ChangeNew: 11.9-14.2 Previous: 11.7- 14.7RECOMMENDED COUMADIN/WARFARIN INR THERAPY RANGESSTANDARD DOSE: 2.0-3.0 Includes: PROPHYLAXIS for venous thrombosis, systemic embolization; TREATMENT for venous thrombosis and/or pulmonary embolus.HIGH RISK: Target INR is2.5-3.5 for patients wiht mechanical heart valves.CBC W/PLT COUNT & AUTO [id number] 05:21:00 Test Item Value Reference Range Comments WHITE BLOOD CELL COUNT (BEAKER) (test nldh=845) 8.7 K/ L 3.5-10.5 RED BLOOD CELL COUNT (BEAKER) (test wlaa=390) 2.44 M/ L 3.93-5.22 HEMOGLOBIN (BEAKER) (test czdy=338) 7.5 GM/DL 11.2-15.7 HEMATOCRIT (BEAKER) (test wonb=541) 24.5 % 34.1-44.9 MEAN CORPUSCULAR VOLUME (BEAKER) (test hzio=162) 100.4 fL 79.4-94.8 MEAN CORPUSCULAR HEMOGLOBIN (BEAKER) (test 30.7 pg 25.6-32.2 ltke=788) MEAN CORPUSCULAR HEMOGLOBIN CONC (BEAKER) (test 30.6 GM/DL 32.2-35.5 pvmr=763) RED CELL DISTRIBUTION WIDTH (BEAKER) (test 21.3 % 11.7-14.4 jjpa=065) PLATELET COUNT (BEAKER) (test mbod=671) 83 K/CU MM 150-450 MEAN PLATELET VOLUME (BEAKER) (test guoz=270) 11.5 fL 9.4-12.3 NUCLEATED RED BLOOD CELLS (BEAKER) (test 0 /100 WBC 0-0 yyos=852) NEUTROPHILS RELATIVE PERCENT (BEAKER) (test 52 % pwth=410) LYMPHOCYTES RELATIVE PERCENT (BEAKER) (test 27 % vbnh=486) MONOCYTES RELATIVE PERCENT (BEAKER) (test 16 % tadw=788) EOSINOPHILS RELATIVE PERCENT (BEAKER) (test 4 % gcmu=490) BASOPHILS RELATIVE PERCENT (BEAKER) (test 1 % uqho=143) NEUTROPHILS ABSOLUTE COUNT (BEAKER) (test 4.49 K/ L 1.56-6.13 igww=039) LYMPHOCYTES ABSOLUTE COUNT (BEAKER) (test 2.36 K/ L 1.18-3.74 ovkx=230) MONOCYTES ABSOLUTE COUNT (BEAKER) (test vtuj=717) 1.41 K/ L 0.24-0.36 EOSINOPHILS ABSOLUTE COUNT (BEAKER) (test 0.34 K/ L 0.04-0.36 vtjc=146) BASOPHILS ABSOLUTE COUNT (BEAKER) (test qiyb=226) 0.05 K/ L 0.01-0.08 IMMATURE GRANULOCYTES-RELATIVE PERCENT (BEAKER) 1 % 0-1 (test aapr=4211) POCT-GLUCOSE [id number] 00:10:00 Test Item Value Reference Range Comments POC-GLUCOSE METER (BEAKER) 127 mg/dL 70-110 TESTED AT [address] (test kitj=4929) [facility] [address] POCT-GLUCOSE [id number] 17:40:00 Test Item Value Reference Range Comments POC-GLUCOSE METER (BEAKER) 165 mg/dL 70-110 TESTED AT [address] (test vedd=2217) [facility] [address] POCT-GLUCOSE [id number] 12:35:00 Test Item Value Reference Range Comments POC-GLUCOSE METER (BEAKER) 190 mg/dL 70-110 TESTED AT [address] (test mopw=3780) [facility] [address] POCT-GLUCOSE [id number] 08:29:00 Test Item Value Reference Range Comments POC-GLUCOSE METER (BEAKER) 173 mg/dL 70-[address] [facility] [address] (test omuk=5958) [facility] [address] CBC W/PLT COUNT & AUTO [id number] 05:21:00 Test Item Value Reference Range Comments WHITE BLOOD CELL COUNT (BEAKER) (test tsiy=195) 9.4 K/ L 3.5-10.5 RED BLOOD CELL COUNT (BEAKER) (test fgni=720) 2.86 M/ L 3.93-5.22 HEMOGLOBIN (BEAKER) (test cszp=538) 8.9 GM/DL 11.2-15.7 HEMATOCRIT (BEAKER) (test lsws=326) 28.9 % 34.1-44.9 MEAN CORPUSCULAR VOLUME (BEAKER) (test aggc=504) 101.0 fL 79.4-94.8 MEAN CORPUSCULAR HEMOGLOBIN (BEAKER) (test 31.1 pg 25.6-32.2 teqm=372) MEAN CORPUSCULAR HEMOGLOBIN CONC (BEAKER) (test 30.8 GM/DL 32.2-35.5 wlxb=244) RED CELL DISTRIBUTION WIDTH (BEAKER) (test 21.9 % 11.7-14.4 cxip=603) PLATELET COUNT (BEAKER) (test qckt=944) 118 K/CU MM 150-450 MEAN PLATELET VOLUME (BEAKER) (test ctxo=980) 11.2 fL 9.4-12.3 NUCLEATED RED BLOOD CELLS (BEAKER) (test 1 /100 WBC 0-0 eggo=427) NEUTROPHILS RELATIVE PERCENT (BEAKER) (test 55 % rozv=743) LYMPHOCYTES RELATIVE PERCENT (BEAKER) (test 24 % fnus=233) MONOCYTES RELATIVE PERCENT (BEAKER) (test 16 % gobc=779) EOSINOPHILS RELATIVE PERCENT (BEAKER) (test 3 % etpc=002) BASOPHILS RELATIVE PERCENT (BEAKER) (test 1 % lcip=527) NEUTROPHILS ABSOLUTE COUNT (BEAKER) (test 5.22 K/ L 1.56-6.13 cvmr=015) LYMPHOCYTES ABSOLUTE COUNT (BEAKER) (test 2.30 K/ L 1.18-3.74 cngw=841) MONOCYTES ABSOLUTE COUNT (BEAKER) (test 1.50 K/ L 0.24-0.36 wquf=349) EOSINOPHILS ABSOLUTE COUNT (BEAKER) (test 0.30 K/ L 0.04-0.36 sevw=738) BASOPHILS ABSOLUTE COUNT (BEAKER) (test 0.07 K/ L 0.01-0.08 xuew=962) IMMATURE GRANULOCYTES-RELATIVE PERCENT (BEAKER) 1 % 0-1 (test sjak=2969) [id number] 05:18:00 Test Item Value Reference Range Comments PHOSPHORUS (BEAKER) (test bzvx=258) 2.1 mg/dL 2.3-4.7 [id number] 05:18:00 Test Item Value Reference Range Comments MAGNESIUM (BEAKER) (test pqzj=988) 2.2 mg/dL 1.6-2.6 BASIC METABOLIC [id number] 05:18:00 Test Item Value Reference Range Comments SODIUM (BEAKER) (test 143 meq/L 136-145 tdji=701) POTASSIUM (BEAKER) (test 3.8 meq/L 3.5-5.1 xyth=343) CHLORIDE (BEAKER) (test 110 meq/L 98-107 fnqd=389) CO2 (BEAKER) (test 27 meq/L 22-29 jrje=015) BLOOD UREA NITROGEN 19 mg/dL 7-21 (BEAKER) (test esmx=412) CREATININE (BEAKER) (test 0.75 mg/dL 0.57-1.25 gvmv=602) GLUCOSE RANDOM (BEAKER) 118 mg/dL 70-105 (test plhr=522) CALCIUM (BEAKER) (test 8.8 mg/dL 8.4-10.2 oxah=249) EGFR (BEAKER) (test 79 mL/min/1.73 sq m ESTIMATED GFR IS NOT lyhn=5388) ACCURATE CREATININE CLEARANCE IN PREDICTING GLOMERULAR FILTRATION RATE. ESTIMATED GFR IS NOT APPLICABLE FOR DIALYSIS PATIENTS. HEPATIC FUNCTION [id number] 05:18:00 Test Item Value Reference Range Comments TOTAL PROTEIN (BEAKER) (test vgwa=380) 5.6 gm/dL 6.0-8.3 ALBUMIN (BEAKER) (test cjyp=3276) 3.3 g/dL 3.5-5.0 BILIRUBIN TOTAL (BEAKER) (test xxkl=619) 1.8 mg/dL 0.2-1.2 BILIRUBIN DIRECT (BEAKER) (test rpow=987) 0.9 mg/dL 0.1-0.5 ALKALINE PHOSPHATASE (BEAKER) (test aare=443) 69 U/L 40-150 AST (SGOT) (BEAKER) (test qacu=802) 51 U/L 5-34 ALT (SGPT) (BEAKER) (test gjdr=181) 110 U/L 6-55 [id number] 05:05:00 Test Item Value Reference Range Comments PROTIME (BEAKER) (test kyjh=621) 19.4 seconds 11.9-14.2 INR (BEAKER) (test ieav=019) 1.7 <=5.9 PARTIAL THROMBOPLASTIN TIME (BEAKER) (test 35.9 seconds 22.5-36.0 dtzi=245) Effective 10/24/2018: PT Reference Range ChangeNew: 11.9-14.2 Previous: 11.7- 14.7RECOMMENDED COUMADIN/WARFARIN INR THERAPY RANGESSTANDARD DOSE: 2.0-3.0 Includes: PROPHYLAXIS for venous thrombosis, systemic embolization; TREATMENT for venous thrombosis and/or pulmonary embolus.HIGH RISK: Target INR is2.5-3.5 for patients wiht mechanical heart valves.[id number] 05:05:00 Test Item Value Reference Range Comments FIBRINOGEN LEVEL (BEAKER) (test jlqy=604) 184 mg/dl 225-434 LACTIC ACID, [id number] 05:02:00 Test Item Value Reference Range Comments LACTATE BLOOD VENOUS (2) (BEAKER) (test 1.8 mmol/L 0.5-2.2 ykip=5081) POCT-GLUCOSE [id number] 22:06:00 Test Item Value Reference Range Comments POC-GLUCOSE METER (BEAKER) 295 mg/dL 70-110 TESTED AT [address] (test sbxy=9263) [facility] [address] POCT-GLUCOSE [id number] 18:38:00 Test Item Value Reference Range Comments POC-GLUCOSE METER (BEAKER) 181 mg/dL 70-110 TESTED AT [address] (test ehvu=0475) [facility] [address] BLOOD [id number] 16:53:00 Test Item Value Reference Range Comments CULTURE (BEAKER) From Anaerobic Bottle Only (test jxwv=1400) Coagulase negative Staphylococcus GRAM STAIN RESULT From anaerobic bottle (BEAKER) (test only: gram positive ymik=5833) cocci in clusters POCT-GLUCOSE [id number] 13:01:00 Test Item Value Reference Range Comments POC-GLUCOSE METER (BEAKER) 143 mg/dL 70-[address] [facility] [address] (test aiet=5648) [facility] [address] RAD, ABDOMEN/KUB, 1 VIEW [id number] 08:18:00Reason for exam:->ileusFINAL REPORT INDICATION:Ileus. COMPARISON: December [...] MDReport Verified Date/Time: 12/10/2018 08:18:25 Reading Location: [facility] Diagnostic Imaging Reading Room - [place] [id number] CBC W/PLT COUNT & AUTO [id number] 07:36:00 Test Item Value Reference Range Comments WHITE BLOOD CELL COUNT (BEAKER) (test nmkz=815) 10.7 K/ L 3.5-10.5 RED BLOOD CELL COUNT (BEAKER) (test delt=986) 2.84 M/ L 3.93-5.22 HEMOGLOBIN (BEAKER) (test eacw=826) 8.7 GM/DL 11.2-15.7 HEMATOCRIT (BEAKER) (test rmhx=705) 28.5 % 34.1-44.9 MEAN CORPUSCULAR VOLUME (BEAKER) (test fihc=926) 100.4 fL 79.4-94.8 MEAN CORPUSCULAR HEMOGLOBIN (BEAKER) (test 30.6 pg 25.6-32.2 wfln=863) MEAN CORPUSCULAR HEMOGLOBIN CONC (BEAKER) (test 30.5 GM/DL 32.2-35.5 atbp=023) RED CELL DISTRIBUTION WIDTH (BEAKER) (test 22.5 % 11.7-14.4 dvqw=256) PLATELET COUNT (BEAKER) (test bnkp=325) 120 K/CU MM 150-450 MEAN PLATELET VOLUME (BEAKER) (test exlj=603) 11.5 fL 9.4-12.3 NUCLEATED RED BLOOD CELLS (BEAKER) (test 1 /100 WBC 0-0 ivvm=850) (CELLAVISION MANUAL DIFF)2018-12-10 07:36:00 Test Item Value Reference Range Comments NEUTROPHILS - REL (CELLAVISION)(BEAKER) (test 81 % rcea=6826) LYMPHOCYTES - REL (CELLAVISION)(BEAKER) (test 9 % enou=3231) MONOCYTES - REL (CELLAVISION)(BEAKER) (test 8 % kmhq=8614) EOSINOPHILS - REL (CELLAVISION)(BEAKER) (test 1 % fvru=9968) BASOPHILS - REL (CELLAVISION)(BEAKER) (test 1 % ursp=1074) NEUTROPHILS - ABS (CELLAVISION)(BEAKER) (test 8.67 K/ul 1.56-6.13 ptoa=5268) LYMPHOCYTES - ABS (CELLAVISION)(BEAKER) (test 0.96 K/ul 1.18-3.74 rhvi=5625) MONOCYTES - ABS (CELLAVISION)(BEAKER) (test 0.86 K/uL 0.24-0.36 mzna=5868) EOSINOPHILS - ABS (CELLAVISION)(BEAKER) (test 0.11 K/uL 0.04-0.36 sjji=0360) BASOPHILS - ABS (CELLAVISION)(BEAKER) (test 0.11 K/uL 0.01-0.08 hftk=5336) TOTAL COUNTED (BEAKER) (test bwzr=6309) 100 MANUAL NRBC PER 100 CELLS (BEAKER) (test 1 /100 WBC 0-0 rxrf=6573) WBC MORPHOLOGY (BEAKER) (test itmk=977) Normal PLT MORPHOLOGY (BEAKER) (test kand=463) Normal POLYCHROMATOPHILLIC RBCS(BEAKER) (test vfbv=513) 2+ moderate HYPOCHROMIA (BEAKER) (test bcxj=293) 1+ few ARTIFACT (CELLAVISION)(BEAKER) (test zaei=0508) Present PLATELET CONCENTRATION (CELLAVISION)(BEAKER) Decreased (test kcun=7337) Received comment: User comments: Slide comments:[id number] 05:18:00 Test Item Value Reference Range Comments PHOSPHORUS (BEAKER) (test bsnl=659) 2.5 mg/dL 2.3-4.7 [id number] 05:18:00 Test Item Value Reference Range Comments MAGNESIUM (BEAKER) (test whwl=513) 2.2 mg/dL 1.6-2.6 BASIC METABOLIC [id number] 05:18:00 Test Item Value Reference Range Comments SODIUM (BEAKER) (test 146 meq/L 136-145 omcn=049) POTASSIUM (BEAKER) (test 3.9 meq/L 3.5-5.1 dpet=254) CHLORIDE (BEAKER) (test 113 meq/L 98-107 xrrl=361) CO2 (BEAKER) (test 26 meq/L 22-29 xptv=419) BLOOD UREA NITROGEN 19 mg/dL 7-21 (BEAKER) (test ljix=585) CREATININE (BEAKER) (test 0.68 mg/dL 0.57-1.25 euyv=909) GLUCOSE RANDOM (BEAKER) 119 mg/dL 70-105 (test mzlp=154) CALCIUM (BEAKER) (test 8.4 mg/dL 8.4-10.2 jvli=232) EGFR (BEAKER) (test 88 mL/min/1.73 sq m ESTIMATED GFR IS NOT qgrv=3522) ACCURATE CREATININE CLEARANCE IN PREDICTING GLOMERULAR FILTRATION RATE. ESTIMATED GFR IS NOT APPLICABLE FOR DIALYSIS PATIENTS. HEPATIC FUNCTION [id number] 05:18:00 Test Item Value Reference Range Comments TOTAL PROTEIN (BEAKER) (test crzz=805) 5.5 gm/dL 6.0-8.3 ALBUMIN (BEAKER) (test pqmz=6927) 3.3 g/dL 3.5-5.0 BILIRUBIN TOTAL (BEAKER) (test vslh=411) 2.0 mg/dL 0.2-1.2 BILIRUBIN DIRECT (BEAKER) (test sdsx=203) 1.0 mg/dL 0.1-0.5 ALKALINE PHOSPHATASE (BEAKER) (test ucgr=271) 65 U/L 40-150 AST (SGOT) (BEAKER) (test eskj=668) 52 U/L 5-34 ALT (SGPT) (BEAKER) (test lttb=706) 136 U/L 6-55 LACTIC ACID, [id number] 05:00:00 Test Item Value Reference Range Comments LACTATE BLOOD VENOUS (2) (BEAKER) (test 2.0 mmol/L 0.5-2.2 pfqo=2308) [id number] 04:39:00 Test Item Value Reference Range Comments FIBRINOGEN LEVEL (BEAKER) (test spfd=560) 221 mg/dl 225-434 PT/[id number] 04:39:00 Test Item Value Reference Range Comments PROTIME (BEAKER) (test quar=091) 17.5 seconds 11.9-14.2 INR (BEAKER) (test hama=684) 1.5 <=5.9 PARTIAL THROMBOPLASTIN TIME (BEAKER) (test 37.8 seconds 22.5-36.0 ggmm=935) Effective 10/24/2018: PT Reference Range ChangeNew: 11.9-14.2 Previous: 11.7- 14.7RECOMMENDED COUMADIN/WARFARIN INR THERAPY RANGESSTANDARD DOSE: 2.0-3.0 Includes: PROPHYLAXIS for venous thrombosis, systemic embolization; TREATMENT for venous thrombosis and/or pulmonary embolus.HIGH RISK: Target INR is2.5-3.5 for patients wiht mechanical heart valves.U/S, ABDOMINAL, [id number] 01: 07:00Reason for exam:->ASCITES EVAL Should this [...] FLOR WILLIS MD on12/10/2018 01:07 AMPOCT- GLUCOSE [id number] 00:25:00 Test Item Value Reference Range Comments POC-GLUCOSE METER (BEAKER) 134 mg/dL 70-110 TESTED AT [address] (test hfsy=9737) [place] [address] BLOOD [id number] 20:01:00 Test Item Value Reference Range Comments CULTURE (BEAKER) (test dlch=4677) No growth in 5 days HEMOGLOBIN AND [id number] 17:57:00 Test Item Value Reference Range Comments HEMOGLOBIN (BEAKER) (test gdvd=171) 8.8 GM/DL 11.2-15.7 HEMATOCRIT (BEAKER) (test vpou=860) 28.2 % 34.1-44.9 POCT-GLUCOSE [id number] 17:57:00 Test Item Value Reference Range Comments POC-GLUCOSE METER (BEAKER) 175 mg/dL 70-110 TESTED AT [address] (test cvln=8116) [place] [address] POCT-GLUCOSE [id number] 13:23:00 Test Item Value Reference Range Comments POC-GLUCOSE METER (BEAKER) 110 mg/dL 70-110 TESTED AT [address] (test wowm=3040) [place] [address] CBC W/PLT COUNT & AUTO [id number] 09:54:00 Test Item Value Reference Range Comments WHITE BLOOD CELL COUNT (BEAKER) (test ucxy=119) 9.9 K/ L 3.5-10.5 RED BLOOD CELL COUNT (BEAKER) (test xjdj=267) 2.64 M/ L 3.93-5.22 HEMOGLOBIN (BEAKER) (test qxul=346) 8.3 GM/DL 11.2-15.7 HEMATOCRIT (BEAKER) (test jyon=724) 26.2 % 34.1-44.9 MEAN CORPUSCULAR VOLUME (BEAKER) (test slfy=519) 99.2 fL 79.4-94.8 MEAN CORPUSCULAR HEMOGLOBIN (BEAKER) (test 31.4 pg 25.6-32.2 xgqe=501) MEAN CORPUSCULAR HEMOGLOBIN CONC (BEAKER) (test 31.7 GM/DL 32.2-35.5 rhbc=040) RED CELL DISTRIBUTION WIDTH (BEAKER) (test 22.9 % 11.7-14.4 nsen=722) PLATELET COUNT (BEAKER) (test jgio=011) 118 K/CU MM 150-450 MEAN PLATELET VOLUME (BEAKER) (test wvfz=945) 11.5 fL 9.4-12.3 NUCLEATED RED BLOOD CELLS (BEAKER) (test 1 /100 WBC 0-0 nxyx=285) (CELLAVISION MANUAL DIFF)2018-12-09 09:54:00 Test Item Value Reference Range Comments NEUTROPHILS - REL (CELLAVISION)(BEAKER) (test 76 % gxaq=6338) LYMPHOCYTES - REL (CELLAVISION)(BEAKER) (test 11 % dmya=7977) MONOCYTES - REL (CELLAVISION)(BEAKER) (test 10 % oyco=3771) EOSINOPHILS - REL (CELLAVISION)(BEAKER) (test 2 % mquj=8147) BASOPHILS - REL (CELLAVISION)(BEAKER) (test 1 % yudo=3113) NEUTROPHILS - ABS (CELLAVISION)(BEAKER) (test 7.52 K/ul 1.56-6.13 mucc=1931) LYMPHOCYTES - ABS (CELLAVISION)(BEAKER) (test 1.09 K/ul 1.18-3.74 gazl=2498) MONOCYTES - ABS (CELLAVISION)(BEAKER) (test 0.99 K/uL 0.24-0.36 jcmi=0249) EOSINOPHILS - ABS (CELLAVISION)(BEAKER) (test 0.20 K/uL 0.04-0.36 exgi=8159) BASOPHILS - ABS (CELLAVISION)(BEAKER) (test 0.10 K/uL 0.01-0.08 tehg=9028) TOTAL COUNTED (BEAKER) (test oeev=8243) 100 MANUAL NRBC PER 100 CELLS (BEAKER) (test 1 /100 WBC 0-0 icih=4561) WBC MORPHOLOGY (BEAKER) (test bmgo=879) Normal PLT MORPHOLOGY (BEAKER) (test pkxe=586) Normal POLYCHROMATOPHILLIC RBCS(BEAKER) (test cluj=867) 1+ few ANISOCYTOSIS (BEAKER) (test xcyu=411) 1+ few MACROCYTES (BEAKER) (test fbkr=870) 1+ few POIKILOCYTES (BEAKER) (test qgkj=317) 2+ moderate ARTIFACT (CELLAVISION)(BEAKER) (test iqqe=3189) Present PLATELET CONCENTRATION (CELLAVISION)(BEAKER) Decreased (test lhkv=0675) Received comment: User comments: Slide comments:RAD, ABDOMEN/KUB, 1 VIEW [id number] 07:43:00Reason for exam:->ileusFINAL REPORT ONE VIEW ABDOMEN [...] Verified Date/Time: 12/09/2018 07:43:19 Reading Location : [address] Reading Room POCT-GLUCOSE [id number] 05:30:00 Test Item Value Reference Range Comments POC-GLUCOSE METER (BEAKER) 112 mg/dL 70-[address] [facility] [address] (test mnsu=0170) [facility] [address] [id number] 05:09:00 Test Item Value Reference Range Comments MAGNESIUM (BEAKER) (test 2.1 mg/dL 1.6-2.6 Specimen slightly hemolyzed jsxj=947) [id number] 05:09:00 Test Item Value Reference Range Comments PHOSPHORUS (BEAKER) (test 2.2 mg/dL 2.3-4.7 Specimen slightly hemolyzed iwzj=720) BASIC METABOLIC [id number] 05:09:00 Test Item Value Reference Range Comments SODIUM (BEAKER) (test 140 meq/L 136-145 zbln=255) POTASSIUM (BEAKER) (test 4.1 meq/L 3.5-5.1 Specimen slightly fpah=135) hemolyzed CHLORIDE (BEAKER) (test 108 meq/L 98-107 aerz=743) CO2 (BEAKER) (test 24 meq/L 22-29 wgdx=802) BLOOD UREA NITROGEN 18 mg/dL 7-21 (BEAKER) (test aast=979) CREATININE (BEAKER) (test 0.65 mg/dL 0.57-1.25 Specimen slightly behz=358) hemolyzed GLUCOSE RANDOM (BEAKER) 124 mg/dL 70-105 (test chkw=021) CALCIUM (BEAKER) (test 8.1 mg/dL 8.4-10.2 blyn=405) EGFR (BEAKER) (test 93 mL/min/1.73 sq m ESTIMATED GFR IS NOT spnr=7033) ACCURATE CREATININE CLEARANCE IN PREDICTING GLOMERULAR FILTRATION RATE. ESTIMATED GFR IS NOT APPLICABLE FOR DIALYSIS PATIENTS. Specimen slightly ictericHEPATIC FUNCTION [id number] 05:09:00 Test Item Value Reference Range Comments TOTAL PROTEIN (BEAKER) (test 5.4 gm/dL 6.0-8.3 Specimen slightly hemolyzed lyug=540) ALBUMIN (BEAKER) (test 3.2 g/dL 3.5-5.0 Specimen slightly hemolyzed inhs=7960) BILIRUBIN TOTAL (BEAKER) (test 2.2 mg/dL 0.2-1.2 Specimen slightly hemolyzed bnhg=839) BILIRUBIN DIRECT (BEAKER) (test 0.9 mg/dL 0.1-0.5 Specimen slightly hemolyzed usxx=799) ALKALINE PHOSPHATASE (BEAKER) 63 U/L 40-150 (test rywl=848) AST (SGOT) (BEAKER) (test 70 U/L 5-34 Specimen slightly hemolyzed istk=092) ALT (SGPT) (BEAKER) (test 169 U/L 6-55 Specimen slightly hemolyzed xadt=355) Specimen slightly ictericLACTIC ACID, [id number] 04:54:00 Test Item Value Reference Range Comments LACTATE BLOOD VENOUS (2) (BEAKER) (test 1.3 mmol/L 0.5-2.2 phtn=3022) Specimen slightly ictericPT/[id number] 04:45:00 Test Item Value Reference Range Comments PROTIME (BEAKER) (test dobs=229) 16.8 seconds 11.9-14.2 INR (BEAKER) (test evqh=166) 1.4 <=5.9 PARTIAL THROMBOPLASTIN TIME (BEAKER) (test 29.5 seconds 22.5-36.0 eubn=464) Effective 10/24/2018: PT Reference Range ChangeNew: 11.9-14.2 Previous: 11.7- 14.7RECOMMENDED COUMADIN/WARFARIN INR THERAPY RANGESSTANDARD DOSE: 2.0-3.0 Includes: PROPHYLAXIS for venous thrombosis, systemic embolization; TREATMENT for venous thrombosis and/or pulmonary embolus.HIGH RISK: Target INR is2.5-3.5 for patients wiht mechanical heart valves.[id number] 04:45:00 Test Item Value Reference Range Comments FIBRINOGEN LEVEL (BEAKER) (test ghne=002) 212 mg/dl 225-434 POCT-GLUCOSE [id number] 23:51:00 Test Item Value Reference Range Comments POC-GLUCOSE METER (BEAKER) 127 mg/dL 70-[address] [facility] [address] (test vwnj=6841) [facility] [address] [id number] 18:46:00 Test Item Value Reference Range Comments PHOSPHORUS (BEAKER) (test dcux=659) 2.8 mg/dL 2.3-4.7 [id number] 18:46:00 Test Item Value Reference Range Comments MAGNESIUM (BEAKER) (test nlld=324) 2.3 mg/dL 1.6-2.6 BASIC METABOLIC [id number] 18:46:00 Test Item Value Reference Range Comments SODIUM (BEAKER) (test 139 meq/L 136-145 zdjq=224) POTASSIUM (BEAKER) (test 4.0 meq/L 3.5-5.1 suqj=758) CHLORIDE (BEAKER) (test 107 meq/L 98-107 bvei=830) CO2 (BEAKER) (test 24 meq/L 22-29 yvga=335) BLOOD UREA NITROGEN 19 mg/dL 7-21 (BEAKER) (test gymi=976) CREATININE (BEAKER) (test 0.68 mg/dL 0.57-1.25 dduj=112) GLUCOSE RANDOM (BEAKER) 114 mg/dL 70-105 (test pczr=602) CALCIUM (BEAKER) (test 8.2 mg/dL 8.4-10.2 diyy=853) EGFR (BEAKER) (test 88 mL/min/1.73 sq m ESTIMATED GFR IS NOT uoic=7184) ACCURATE CREATININE CLEARANCE IN PREDICTING GLOMERULAR FILTRATION RATE. ESTIMATED GFR IS NOT APPLICABLE FOR DIALYSIS PATIENTS. Specimen slightly ictericPOCT-GLUCOSE [id number] 17:54:00 Test Item Value Reference Range Comments POC-GLUCOSE METER (BEAKER) 93 mg/dL 70-110 TESTED AT [address] (test kzpz=8184) [place] [address] LACTIC ACID, [id number] 12:49:00 Test Item Value Reference Range Comments LACTATE BLOOD VENOUS (2) (BEAKER) (test 1.9 mmol/L 0.5-2.2 voep=6370) Specimen slightly ictericPOCT-GLUCOSE [id number] 12:09:00 Test Item Value Reference Range Comments POC-GLUCOSE METER (BEAKER) 142 mg/dL 70-110 TESTED AT [address] (test jerr=1144) [place] [address] RAD, ABDOMEN/KUB, 1 VIEW [id number] 08:31:00Reason for exam:->ileusShould this be performed at [...] MDReport Verified Date/Time: 12/08/2018 08:31:46 Reading Location: [facility] C013Y CT Body Reading Room [id number] 08:02:00 Test Item Value Reference Range Comments PHOSPHORUS (BEAKER) (test oibm=803) 1.7 mg/dL 2.3-4.7 POCT-GLUCOSE [id number] 05:40:00 Test Item Value Reference Range Comments POC-GLUCOSE METER (BEAKER) 128 mg/dL 70-110 TESTED AT [address] (test ngqq=0929) [place] [address] [id number] 05:14:00 Test Item Value Reference Range Comments MAGNESIUM (BEAKER) (test amhv=602) 2.2 mg/dL 1.6-2.6 BASIC METABOLIC [id number] 05:14:00 Test Item Value Reference Range Comments SODIUM (BEAKER) (test 141 meq/L 136-145 lfae=144) POTASSIUM (BEAKER) (test 4.0 meq/L 3.5-5.1 vsxb=302) CHLORIDE (BEAKER) (test 109 meq/L 98-107 zkuh=848) CO2 (BEAKER) (test 25 meq/L 22-29 edwd=924) BLOOD UREA NITROGEN 21 mg/dL 7-21 (BEAKER) (test rmqz=705) CREATININE (BEAKER) (test 0.66 mg/dL 0.57-1.25 hmqr=998) GLUCOSE RANDOM (BEAKER) 118 mg/dL 70-105 (test klhh=976) CALCIUM (BEAKER) (test 8.3 mg/dL 8.4-10.2 jhfc=183) EGFR (BEAKER) (test 91 mL/min/1.73 sq m ESTIMATED GFR IS NOT irii=3489) ACCURATE CREATININE CLEARANCE IN PREDICTING GLOMERULAR FILTRATION RATE. ESTIMATED GFR IS NOT APPLICABLE FOR DIALYSIS PATIENTS. Specimen slightly ictericHEPATIC FUNCTION [id number] 05:14:00 Test Item Value Reference Range Comments TOTAL PROTEIN (BEAKER) (test oewc=973) 5.4 gm/dL 6.0-8.3 ALBUMIN (BEAKER) (test ldtk=3621) 3.4 g/dL 3.5-5.0 BILIRUBIN TOTAL (BEAKER) (test mgya=363) 2.4 mg/dL 0.2-1.2 BILIRUBIN DIRECT (BEAKER) (test jdhe=072) 1.0 mg/dL 0.1-0.5 ALKALINE PHOSPHATASE (BEAKER) (test umfg=370) 65 U/L 40-150 AST (SGOT) (BEAKER) (test uiyk=899) 94 U/L 5-34 ALT (SGPT) (BEAKER) (test vudg=676) 229 U/L 6-55 Specimen slightly [id number] 05:09:00 Test Item Value Reference Range Comments FIBRINOGEN LEVEL (BEAKER) (test jkep=205) 223 mg/dl 225-434 PT/[id number] 05:09:00 Test Item Value Reference Range Comments PROTIME (BEAKER) (test rkpm=428) 16.4 seconds 11.9-14.2 INR (BEAKER) (test yadx=872) 1.4 <=5.9 PARTIAL THROMBOPLASTIN TIME (BEAKER) (test 32.1 seconds 22.5-36.0 afny=078) Effective 10/24/2018: PT Reference Range ChangeNew: 11.9-14.2 Previous: 11.7- 14.7RECOMMENDED COUMADIN/WARFARIN INR THERAPY RANGESSTANDARD DOSE: 2.0-3.0 Includes: PROPHYLAXIS for venous thrombosis, systemic embolization; TREATMENT for venous thrombosis and/or pulmonary embolus.HIGH RISK: Target INR is2.5-3.5 for patients wiht mechanical heart valves.CBC W/PLT COUNT & AUTO [id number] 04:41:00 Test Item Value Reference Range Comments WHITE BLOOD CELL COUNT (BEAKER) (test asfi=870) 10.2 K/ L 3.5-10.5 RED BLOOD CELL COUNT (BEAKER) (test zjpt=824) 2.63 M/ L 3.93-5.22 HEMOGLOBIN (BEAKER) (test fvpd=369) 8.3 GM/DL 11.2-15.7 HEMATOCRIT (BEAKER) (test woxc=209) 26.1 % 34.1-44.9 MEAN CORPUSCULAR VOLUME (BEAKER) (test qowr=008) 99.2 fL 79.4-94.8 MEAN CORPUSCULAR HEMOGLOBIN (BEAKER) (test 31.6 pg 25.6-32.2 otjf=493) MEAN CORPUSCULAR HEMOGLOBIN CONC (BEAKER) (test 31.8 GM/DL 32.2-35.5 ipky=368) RED CELL DISTRIBUTION WIDTH (BEAKER) (test 23.0 % 11.7-14.4 setf=294) PLATELET COUNT (BEAKER) (test oyfy=719) 106 K/CU MM 150-450 MEAN PLATELET VOLUME (BEAKER) (test aknn=100) 11.6 fL 9.4-12.3 NUCLEATED RED BLOOD CELLS (BEAKER) (test 2 /100 WBC 0-0 zvfu=056) NEUTROPHILS RELATIVE PERCENT (BEAKER) (test 53 % nrxr=855) LYMPHOCYTES RELATIVE PERCENT (BEAKER) (test 26 % zcfl=240) MONOCYTES RELATIVE PERCENT (BEAKER) (test 17 % gdzd=133) EOSINOPHILS RELATIVE PERCENT (BEAKER) (test 2 % dgvr=844) BASOPHILS RELATIVE PERCENT (BEAKER) (test 0 % pwti=359) NEUTROPHILS ABSOLUTE COUNT (BEAKER) (test 5.44 K/ L 1.56-6.13 bsao=514) LYMPHOCYTES ABSOLUTE COUNT (BEAKER) (test 2.68 K/ L 1.18-3.74 dutx=899) MONOCYTES ABSOLUTE COUNT (BEAKER) (test 1.78 K/ L 0.24-0.36 gdpy=843) EOSINOPHILS ABSOLUTE COUNT (BEAKER) (test 0.21 K/ L 0.04-0.36 osju=225) BASOPHILS ABSOLUTE COUNT (BEAKER) (test 0.03 K/ L 0.01-0.08 dgbh=339) IMMATURE GRANULOCYTES-RELATIVE PERCENT (BEAKER) 1 % 0-1 (test couh=1546) HEMOGLOBIN AND [id number] 04:38:00 Test Item Value Reference Range Comments HEMOGLOBIN (BEAKER) (test svjr=549) 8.3 GM/DL 11.2-15.7 HEMATOCRIT (BEAKER) (test xmlh=444) 26.1 % 34.1-44.9 POCT-GLUCOSE [id number] 00:02:00 Test Item Value Reference Range Comments POC-GLUCOSE METER (BEAKER) 125 mg/dL 70-[address] [facility] [address] [place] [address] (test nmms=0585) [facility] [address] [id number] 23:12:00 Test Item Value Reference Range Comments POTASSIUM (BEAKER) (test nyoy=038) 5.1 meq/L 3.5-5.1 [id number] 23:12:00 Test Item Value Reference Range Comments MAGNESIUM (BEAKER) (test qpvl=026) 2.3 mg/dL 1.6-2.6 HEMOGLOBIN AND [id number] 22:46:00 Test Item Value Reference Range Comments HEMOGLOBIN (BEAKER) (test yvui=129) 7.8 GM/DL 11.2-15.7 HEMATOCRIT (BEAKER) (test lpbu=112) 23.9 % 34.1-44.9 BLOOD CULTURE IDENTIFICATION [id number] 20:39:00 Test Item Value Reference Range Comments LISTERIA MONOCYTOGENES (test Not detected Not detected ikrt=[id number]) STAPHYLOCOCCUS (test Detected Not detected Coagulase negative Staph idey=[id number]) species (CoNS)- methicillin susceptibleFirst-line therapy: Cefazolin or Oxacillin (Oxacillin preferred if FRUIT TESTER involvement) MecA NOT DETECTEDPossible contamination. The likelihood of pathogenicity is increased if the organism is observed in multiple blood cultures obtained from separate venipunctures.Reference Range: Not Detected STAPHYLOCOCCUS AUREUS (test Not detected Not detected ienu=2050407) STREPTOCOCCUS (test Not detected Not detected zmiv=2048466) STREPTOCOCCUS AGALACTIAE Not detected Not detected (GROUP B) (test ylkb=9185609) STREPTOCOCCUS PNEUMONIAE Not detected Not detected (test dckz=6155201) STREPTOCOCCUS PYOGENES (GROUP Not detected Not detected A) (test ktiw=9687523) ACINETOBACTER BAUMANNII (test Not detected Not detected oknw=2286277) HAEMOPHILUS INFLUENZAE (test Not detected Not detected iike=8632104) NEISSERIA MENINGITIDIS (test Not detected Not detected smum=8812943) ENTEROBACTERIACEAE (test Not detected Not detected ltva=4761713) ENTEROBACTER CLOACOE COMPLEX Not detected Not detected (test kaay=4814188) KLEBSIELLA OXYTOCA (test Not detected Not detected vmya=2311469) KLEBSIELLA PNEUMONIAE (test Not detected Not detected trts=9128) PROTEUS (test bvgi=2808025) Not detected Not detected SERRATIA MARCESCENS (test Not detected Not detected mibp=1791699) LINDA ALBICANS (test Not detected Not detected nufy=4288603) LINDA GLABRATA (test Not detected Not detected gazy=9554397) LINDA KRUSEI (test Not detected Not detected ksoj=4763408) LINDA PARAPSILOSIS (test Not detected Not detected jpdh=9214159) LINDA TROPICALIS (test Not detected Not detected rofu=7249608) ESCHERICHIA COLI (test Not detected Not detected bflm=5553211) METHICILLIN-RESISTANCE GENE Not detected Not detected (test uzsz=5267762) VANCOMYCIN-RESISTANCE GENE Not detected (test frlt=8164524) CARBAPENEM-RESISTANCE GENE Not detected (test fqta=7849253) ENTEROCOCCUS-BEAKER (test Not detected Not detected edzk=6294141) PSEUDOMONAS AERUGINOSA-BEAKER Not detected Not detected (test srla=1770227) Other bacteria and resistance markers not targeted by this PCR panel cannot be excluded; therefore clinical correlation and follow up of serology, culture results, and other molecular studies is required. The results are not intended to be used as the sole means for clinical diagnosis or patient management decisions. This sample was tested at the [facility] using the [employer] Film[employer] Blood Culture ID Panel. It is FDA cleared and has been verified and approved by the [facility] for clinical use. This laboratory is CLIA-certified and College ofAmerican Pathologists (CAP)-accredited to perform high complexity testing.POCT-GLUCOSE [id number] 18:12:00 Test Item Value Reference Range Comments POC-GLUCOSE METER (BEAKER) 146 mg/dL 70-[address] [facility] [address] (test zbyw=2562) [facility] [address] LACTIC ACID, [id number] 15:57:00 Test Item Value Reference Range Comments LACTATE BLOOD VENOUS (2) (BEAKER) (test 2.2 mmol/L 0.5-2.2 oiog=9510) Specimen slightly ictericHEMOGLOBIN AND [id number] 15:42:00 Test Item Value Reference Range Comments HEMOGLOBIN (BEAKER) (test pmit=660) 8.3 GM/DL 11.2-15.7 HEMATOCRIT (BEAKER) (test jgtl=350) 25.0 % 34.1-44.9 RAD, ABDOMEN/KUB, 1 VIEW [id number] 15:11:00Reason for exam:->suspected ileusShould this be performed [...] Sterneport Verified Date/Time: 12/07/2018 15:11:34 Reading Location: [facility] [place] Reading Room Electronically signed by: JULIA STERN MD on 2018 03:11 [id number] 12:18:00 Test Item Value Reference Range Comments PROCALCITONIN (BEAKER) (test rxek=4278) 0.09 ng/mL <0.05 SEPSIS RISK (ng/mL)Low: 0.05-0.50Intermediate: 0.51-2.00High: & gt;=2.01POCT-GLUCOSE [id number] 12:08:00 Test Item Value Reference Range Comments POC-GLUCOSE METER (BEAKER) 128 mg/dL 70-110 TESTED AT [address] (test xjre=8737) [place] [id number] LACTIC ACID, [id number] 11:54:00 Test Item Value Reference Range Comments LACTATE BLOOD VENOUS (2) (BEAKER) (test 1.7 mmol/L 0.5-2.2 tafw=3834) POCT-GLUCOSE [id number] 09:43:00 Test Item Value Reference Range Comments POC-GLUCOSE METER (BEAKER) 142 mg/dL 70-110 TESTED AT [address] (test gwbu=3312) [place] [id number] POCT-GLUCOSE [id number] 09:41:00 Test Item Value Reference Range Comments POC-GLUCOSE METER (BEAKER) 147 mg/dL 70-110 TESTED AT [address] (test lubs=7221) [place] [address] POCT-GLUCOSE [id number] 09:38:00 Test Item Value Reference Range Comments POC-GLUCOSE METER (BEAKER) 149 mg/dL 70-110 TESTED AT [address] (test jjpg=0910) [place] [id number] POCT-GLUCOSE [id number] 09:38:00 Test Item Value Reference Range Comments POC-GLUCOSE METER (BEAKER) 147 mg/dL 70-110 TESTED AT [address] (test rjxd=3247) [place] [id number] VANCOMYCIN LEVEL, [id number] 09:37:00 Test Item Value Reference Range Comments VANCOMYCIN TROUGH (BEAKER) (test mbuv=131) 10.5 ug/mL 10.0-20.0 POCT-GLUCOSE [id number] 09:35:00 Test Item Value Reference Range Comments POC-GLUCOSE METER (BEAKER) 161 mg/dL 70-110 TESTED AT [address] (test kues=1847) [place] [id number] HEMOGLOBIN AND [id number] 09:18:00 Test Item Value Reference Range Comments HEMOGLOBIN (BEAKER) (test gybn=697) 9.3 GM/DL 11.2-15.7 HEMATOCRIT (BEAKER) (test pwen=905) 28.0 % 34.1-44.9 RAD, CHEST, 1 VIEW, NON [id number] 09:12:00Reason for exam:->Picc line placementShould this be [...] Verified Date/ Time: 12/07/2018 09:12:03 Reading Location: [facility] [place] Reading Room RAD , ABDOMEN/KUB, 1 VIEW [id number] 04:39:00Reason for exam:->Concern for SBO vs Ileus [...] Goldman MDReportVerified Date/Time: 12/07/2018 04:39:54 Reading Location: [address] Reading Room [id number] 04:12:00 Test Item Value Reference Range Comments PHOSPHORUS (BEAKER) (test rhwm=193) 3.5 mg/dL 2.3-4.7 [id number] 04:12:00 Test Item Value Reference Range Comments MAGNESIUM (BEAKER) (test nbxf=914) 1.8 mg/dL 1.6-2.6 BASIC METABOLIC [id number] 04:12:00 Test Item Value Reference Range Comments SODIUM (BEAKER) (test 141 meq/L 136-145 ucqu=439) POTASSIUM (BEAKER) (test 3.5 meq/L 3.5-5.1 kzuy=719) CHLORIDE (BEAKER) (test 109 meq/L 98-107 oewf=968) CO2 (BEAKER) (test 21 meq/L 22-29 tizh=284) BLOOD UREA NITROGEN 27 mg/dL 7-21 (BEAKER) (test wngx=406) CREATININE (BEAKER) (test 0.77 mg/dL 0.57-1.25 qfgv=887) GLUCOSE RANDOM (BEAKER) 144 mg/dL 70-105 (test rakn=174) CALCIUM (BEAKER) (test 8.6 mg/dL 8.4-10.2 fsrf=902) EGFR (BEAKER) (test 76 mL/min/1.73 sq m ESTIMATED GFR IS NOT trpf=3612) ACCURATE CREATININE CLEARANCE IN PREDICTING GLOMERULAR FILTRATION RATE. ESTIMATED GFR IS NOT APPLICABLE FOR DIALYSIS PATIENTS. Specimen slightly ictericHEPATIC FUNCTION [id number] 04:12:00 Test Item Value Reference Range Comments TOTAL PROTEIN (BEAKER) (test kyys=288) 5.9 gm/dL 6.0-8.3 ALBUMIN (BEAKER) (test zmyl=7836) 3.4 g/dL 3.5-5.0 BILIRUBIN TOTAL (BEAKER) (test jfno=604) 2.3 mg/dL 0.2-1.2 BILIRUBIN DIRECT (BEAKER) (test vxdl=185) 1.0 mg/dL 0.1-0.5 ALKALINE PHOSPHATASE (BEAKER) (test ouxa=056) 78 U/L 40-150 AST (SGOT) (BEAKER) (test isdz=827) 204 U/L 5-34 ALT (SGPT) (BEAKER) (test mdwo=864) 392 U/L 6-55 Specimen slightly ictericLACTIC ACID, [id number] 03:49:00 Test Item Value Reference Range Comments LACTATE BLOOD VENOUS (2) 2.3 mmol/L 0.5-2.2 Specimen slightly hemolyzed (BEAKER) (test msko=8803) Specimen slightly ictericPT/[id number] 03:47:00 Test Item Value Reference Range Comments PROTIME (BEAKER) (test dezx=551) 16.3 seconds 11.9-14.2 INR (BEAKER) (test zhwb=688) 1.4 <=5.9 PARTIAL THROMBOPLASTIN TIME (BEAKER) (test 25.9 seconds 22.5-36.0 ktfn=777) Effective 10/24/2018: PT Reference Range ChangeNew: 11.9-14.2 Previous: 11.7- 14.7RECOMMENDED COUMADIN/WARFARIN INR THERAPY RANGESSTANDARD DOSE: 2.0-3.0 Includes: PROPHYLAXIS for venous thrombosis, systemic embolization; TREATMENT for venous thrombosis and/or pulmonary embolus.HIGH RISK: Target INR is2.5-3.5 for patients wiht mechanical heart valves.[id number] 03:47:00 Test Item Value Reference Range Comments FIBRINOGEN LEVEL (BEAKER) (test gdfu=014) 252 mg/dl 225-434 CBC W/PLT COUNT & AUTO [id number] 03:43:00 Test Item Value Reference Range Comments WHITE BLOOD CELL COUNT (BEAKER) (test fusr=458) 14.3 K/ L 3.5-10.5 RED BLOOD CELL COUNT (BEAKER) (test lqhp=326) 3.04 M/ L 3.93-5.22 HEMOGLOBIN (BEAKER) (test rncr=359) 9.6 GM/DL 11.2-15.7 HEMATOCRIT (BEAKER) (test vpue=168) 28.9 % 34.1-44.9 MEAN CORPUSCULAR VOLUME (BEAKER) (test ehnm=754) 95.1 fL 79.4-94.8 MEAN CORPUSCULAR HEMOGLOBIN (BEAKER) (test 31.6 pg 25.6-32.2 tebq=337) MEAN CORPUSCULAR HEMOGLOBIN CONC (BEAKER) (test 33.2 GM/DL 32.2-35.5 qtbn=800) RED CELL DISTRIBUTION WIDTH (BEAKER) (test 22.7 % 11.7-14.4 lcol=765) PLATELET COUNT (BEAKER) (test zyru=716) 133 K/CU MM 150-450 MEAN PLATELET VOLUME (BEAKER) (test vnsr=318) 12.0 fL 9.4-12.3 NUCLEATED RED BLOOD CELLS (BEAKER) (test 3 /100 WBC 0-0 jrvp=508) NEUTROPHILS RELATIVE PERCENT (BEAKER) (test 67 % pyyd=180) LYMPHOCYTES RELATIVE PERCENT (BEAKER) (test 17 % wqrr=188) MONOCYTES RELATIVE PERCENT (BEAKER) (test 15 % lode=027) EOSINOPHILS RELATIVE PERCENT (BEAKER) (test 0 % dwma=399) BASOPHILS RELATIVE PERCENT (BEAKER) (test 0 % nhag=543) NEUTROPHILS ABSOLUTE COUNT (BEAKER) (test 9.64 K/ L 1.56-6.13 enwc=266) LYMPHOCYTES ABSOLUTE COUNT (BEAKER) (test 2.41 K/ L 1.18-3.74 zsla=908) MONOCYTES ABSOLUTE COUNT (BEAKER) (test 2.13 K/ L 0.24-0.36 metv=712) EOSINOPHILS ABSOLUTE COUNT (BEAKER) (test 0.01 K/ L 0.04-0.36 vsfq=481) BASOPHILS ABSOLUTE COUNT (BEAKER) (test 0.06 K/ L 0.01-0.08 hszp=252) IMMATURE GRANULOCYTES-RELATIVE PERCENT (BEAKER) 1 % 0-1 (test ofta=7043) BLOOD GAS, [id number] 00:47:00 Test Item Value Reference Range Comments PH VENOUS (BEAKER) (test nmru=326) 7.44 7.32-7.42 PCO2 VENOUS (BEAKER) (test rgya=441) 36 mmHg 41-51 PO2 VENOUS (BEAKER) (test eyqc=491) 43 mmHg 25-40 O2 SATURATION VENOUS (BEAKER) (test hkcs=675) 81.3 % 40.0-70.0 HCO3 VENOUS (BEAKER) (test uvdj=980) 24 mmol/L 21-29 BASE EXCESS VENOUS (BEAKER) (test ahks=182) -0.2 mmol/L -2.0-3.0 PATIENT TEMPERATURE (BEAKER) (test kxsy=3979) 36.7 C FIO2 (BEAKER) (test focj=7352) 21.0 % HEMOGLOBIN AND [id number] 00:36:00 Test Item Value Reference Range Comments HEMOGLOBIN (BEAKER) (test tnjm=287) 9.7 GM/DL 11.2-15.7 HEMATOCRIT (BEAKER) (test stms=951) 29.0 % 34.1-44.9 CT, [id number] 00:24:00FINAL REPORT EXAM: CT of the abdomen [...] 12/07/2018 00:24:22 12:24 AMRAD, ABDOMEN/KUB, 1 VIEW [id number] 18: 47:00Reason for exam:->abdominal distensionShould this be [...] Macey PhippsortVerified Date/Time: 12/06/2018 18:47:51 Reading Location: [address] Reading Room Electronically signed by: MACEY PHIPPS MD on 12/06 06:47 [id number] 18:17:00 Test Item Value Reference Range Comments PHOSPHORUS (BEAKER) (test 3.0 mg/dL 2.3-4.7 Specimen slightly hemolyzed qhmg=068) BASIC METABOLIC [id number] 18:17:00 Test Item Value Reference Range Comments SODIUM (BEAKER) (test 142 meq/L 136-145 gnfr=334) POTASSIUM (BEAKER) (test 3.3 meq/L 3.5-5.1 Specimen slightly udta=991) hemolyzed CHLORIDE (BEAKER) (test 112 meq/L 98-107 gjmq=521) CO2 (BEAKER) (test 20 meq/L 22-29 kjxl=479) BLOOD UREA NITROGEN 25 mg/dL 7-21 (BEAKER) (test rama=809) CREATININE (BEAKER) (test 0.73 mg/dL 0.57-1.25 Specimen slightly yoje=955) hemolyzed GLUCOSE RANDOM (BEAKER) 150 mg/dL 70-105 (test gour=403) CALCIUM (BEAKER) (test 8.2 mg/dL 8.4-10.2 vbvc=975) EGFR (BEAKER) (test 81 mL/min/1.73 sq m ESTIMATED GFR IS NOT hzng=9658) ACCURATE CREATININE CLEARANCE IN PREDICTING GLOMERULAR FILTRATION RATE. ESTIMATED GFR IS NOT APPLICABLE FOR DIALYSIS PATIENTS. RAD, CHEST, 1 VIEW, NON [id number] 18:15:00Reason for exam:->shortness of breathShould this be [...] Phipps MDReportVerified Date/Time: 12/06/2018 18:15:51 Reading Location: [address] Reading Room Electronically signed by: MACEY PHIPPS MD on 12/06 06:15 PMCBC W/PLT COUNT & AUTO [id number] 18:00:00 Test Item Value Reference Range Comments WHITE BLOOD CELL COUNT (BEAKER) (test mukl=837) 12.6 K/ L 3.5-10.5 RED BLOOD CELL COUNT (BEAKER) (test kmvq=422) 2.95 M/ L 3.93-5.22 HEMOGLOBIN (BEAKER) (test zqxq=375) 9.3 GM/DL 11.2-15.7 HEMATOCRIT (BEAKER) (test fsnu=624) 28.1 % 34.1-44.9 MEAN CORPUSCULAR VOLUME (BEAKER) (test rvhn=653) 95.3 fL 79.4-94.8 MEAN CORPUSCULAR HEMOGLOBIN (BEAKER) (test 31.5 pg 25.6-32.2 oxjb=174) MEAN CORPUSCULAR HEMOGLOBIN CONC (BEAKER) (test 33.1 GM/DL 32.2-35.5 bkkn=001) RED CELL DISTRIBUTION WIDTH (BEAKER) (test 23.1 % 11.7-14.4 eglw=494) PLATELET COUNT (BEAKER) (test rzkm=838) 126 K/CU MM 150-450 MEAN PLATELET VOLUME (BEAKER) (test dkkz=481) 11.5 fL 9.4-12.3 NUCLEATED RED BLOOD CELLS (BEAKER) (test 3 /100 WBC 0-0 wjrk=296) (CELLAVISION MANUAL DIFF)2018-12-06 18:00:00 Test Item Value Reference Range Comments NEUTROPHILS - REL (CELLAVISION)(BEAKER) (test 75 % gqmv=3965) LYMPHOCYTES - REL (CELLAVISION)(BEAKER) (test 15 % wgmf=3607) MONOCYTES - REL (CELLAVISION)(BEAKER) (test 7 % lzzz=3747) BASOPHILS - REL (CELLAVISION)(BEAKER) (test 1 % wkka=4734) BANDS - REL (CELLAVISION)(BEAKER) (test 2 % 0-10 rwwr=9791) NEUTROPHILS - ABS (CELLAVISION)(BEAKER) (test 9.45 K/ul 1.56-6.13 uhdn=0200) LYMPHOCYTES - ABS (CELLAVISION)(BEAKER) (test 1.89 K/ul 1.18-3.74 zxkh=8126) MONOCYTES - ABS (CELLAVISION)(BEAKER) (test 0.88 K/uL 0.24-0.36 ttma=1814) BASOPHILS - ABS (CELLAVISION)(BEAKER) (test 0.13 K/uL 0.01-0.08 geer=6320) BANDS - ABS (CELLAVISION)(BEAKER) (test 0.25 K/uL 0.00-0.80 dbur=7722) TOTAL COUNTED (BEAKER) (test wvfw=4426) 100 MANUAL NRBC PER 100 CELLS (BEAKER) (test 3 /100 WBC 0-0 yley=1912) SMUDGE CELLS (BEAKER) (test uhqk=3130) Present GIANT PLATELETS (BEAKER) (test unlq=025) Present POLYCHROMATOPHILLIC RBCS(BEAKER) (test tkhe=508) 1+ few ANISOCYTOSIS (BEAKER) (test hvxr=658) 2+ moderate MICROCYTES (BEAKER) (test aubh=199) 2+ moderate POIKILOCYTES (BEAKER) (test rfci=957) 1+ few ELLIPTOCYTES (BEAKER) (test comj=741) 1+ few ARTIFACT (CELLAVISION)(BEAKER) (test rkyi=3432) Present PLATELET CONCENTRATION (CELLAVISION)(BEAKER) Decreased (test avru=2054) Received comment: User comments: Slide comments:HEMOGLOBIN AND [id number] 17:32:00 Test Item Value Reference Range Comments HEMOGLOBIN (BEAKER) (test fwxd=677) 9.3 GM/DL 11.2-15.7 HEMATOCRIT (BEAKER) (test esvs=172) 28.1 % 34.1-44.9 ANTI-NUCLEAR ANTIBODY (SATNAM)2018-12-06 10:40:00 Test Item Value Reference Range Comments ANTI-NUCLEAR ANTIBODY (SATNAM) (BEAKER) (test Negative Negative yfqe=409) Test performed by IFA method.Test performed by IFA method.LACTIC ACID, [id number] 09:53:00 Test Item Value Reference Range Comments LACTATE BLOOD VENOUS (2) (BEAKER) (test 1.6 mmol/L 0.5-2.2 hyei=1518) [id number] 09:48:00 Test Item Value Reference Range Comments AMMONIA (BEAKER) (test gquv=143) 54 mol/L 18-72 POCT-GLUCOSE [id number] 06:27:00 Test Item Value Reference Range Comments POC-GLUCOSE METER (BEAKER) 181 mg/dL 70-[address] [facility] [address] (test ouaw=3209) [facility] [address] [id number] 04:38:00 Test Item Value Reference Range Comments PHOSPHORUS (BEAKER) (test 1.4 mg/dL 2.3-4.7 Specimen slightly hemolyzed ddtd=316) [id number] 04:33:00 Test Item Value Reference Range Comments MAGNESIUM (BEAKER) (test 1.9 mg/dL 1.6-2.6 Specimen slightly hemolyzed ltew=516) BASIC METABOLIC [id number] 04:33:00 Test Item Value Reference Range Comments SODIUM (BEAKER) (test 146 meq/L 136-145 jfwq=746) POTASSIUM (BEAKER) (test 3.4 meq/L 3.5-5.1 Specimen slightly jncb=157) hemolyzed CHLORIDE (BEAKER) (test 116 meq/L 98-107 mgqt=204) CO2 (BEAKER) (test 21 meq/L 22-29 uyfu=639) BLOOD UREA NITROGEN 29 mg/dL 7-21 (BEAKER) (test amyf=468) CREATININE (BEAKER) (test 0.73 mg/dL 0.57-1.25 Specimen slightly awzt=924) hemolyzed GLUCOSE RANDOM (BEAKER) 226 mg/dL 70-105 (test jdvd=311) CALCIUM (BEAKER) (test 8.0 mg/dL 8.4-10.2 quvf=901) EGFR (BEAKER) (test 81 mL/min/1.73 sq m ESTIMATED GFR IS NOT fyde=5606) ACCURATE CREATININE CLEARANCE IN PREDICTING GLOMERULAR FILTRATION RATE. ESTIMATED GFR IS NOT APPLICABLE FOR DIALYSIS PATIENTS. HEPATIC FUNCTION [id number] 04:33:00 Test Item Value Reference Range Comments TOTAL PROTEIN (BEAKER) (test 5.2 gm/dL 6.0-8.3 Specimen slightly hemolyzed wxsn=895) ALBUMIN (BEAKER) (test 3.0 g/dL 3.5-5.0 Specimen slightly hemolyzed snyy=0717) BILIRUBIN TOTAL (BEAKER) (test 1.4 mg/dL 0.2-1.2 Specimen slightly hemolyzed ykld=592) BILIRUBIN DIRECT (BEAKER) (test 0.5 mg/dL 0.1-0.5 Specimen slightly hemolyzed wgzy=595) ALKALINE PHOSPHATASE (BEAKER) 55 U/L 40-150 (test ggpf=327) AST (SGOT) (BEAKER) (test 282 U/L 5-34 Specimen slightly hemolyzed seyo=864) ALT (SGPT) (BEAKER) (test 443 U/L 6-55 Specimen slightly hemolyzed qtnr=061) CBC W/PLT COUNT & AUTO [id number] 04:30:00 Test Item Value Reference Range Comments WHITE BLOOD CELL COUNT (BEAKER) (test abon=600) 12.3 K/ L 3.5-10.5 RED BLOOD CELL COUNT (BEAKER) (test zxur=940) 2.78 M/ L 3.93-5.22 HEMOGLOBIN (BEAKER) (test netp=873) 8.7 GM/DL 11.2-15.7 HEMATOCRIT (BEAKER) (test eivm=152) 27.3 % 34.1-44.9 MEAN CORPUSCULAR VOLUME (BEAKER) (test ayze=234) 98.2 fL 79.4-94.8 MEAN CORPUSCULAR HEMOGLOBIN (BEAKER) (test 31.3 pg 25.6-32.2 qspr=402) MEAN CORPUSCULAR HEMOGLOBIN CONC (BEAKER) (test 31.9 GM/DL 32.2-35.5 idzp=101) RED CELL DISTRIBUTION WIDTH (BEAKER) (test 22.3 % 11.7-14.4 jivt=126) PLATELET COUNT (BEAKER) (test pole=579) 112 K/CU MM 150-450 MEAN PLATELET VOLUME (BEAKER) (test ouxv=269) 11.9 fL 9.4-12.3 NUCLEATED RED BLOOD CELLS (BEAKER) (test 2 /100 WBC 0-0 lmmc=352) NEUTROPHILS RELATIVE PERCENT (BEAKER) (test 61 % aohz=719) LYMPHOCYTES RELATIVE PERCENT (BEAKER) (test 24 % hwpl=690) MONOCYTES RELATIVE PERCENT (BEAKER) (test 12 % ztxc=789) EOSINOPHILS RELATIVE PERCENT (BEAKER) (test 2 % ibla=270) BASOPHILS RELATIVE PERCENT (BEAKER) (test 1 % kzuo=048) NEUTROPHILS ABSOLUTE COUNT (BEAKER) (test 7.52 K/ L 1.56-6.13 natj=783) LYMPHOCYTES ABSOLUTE COUNT (BEAKER) (test 2.97 K/ L 1.18-3.74 rwhg=869) MONOCYTES ABSOLUTE COUNT (BEAKER) (test 1.44 K/ L 0.24-0.36 rsft=039) EOSINOPHILS ABSOLUTE COUNT (BEAKER) (test 0.20 K/ L 0.04-0.36 bdqe=418) BASOPHILS ABSOLUTE COUNT (BEAKER) (test 0.06 K/ L 0.01-0.08 igsr=944) IMMATURE GRANULOCYTES-RELATIVE PERCENT (BEAKER) 1 % 0-1 (test ogdx=4641) [id number] 04:29:00 Test Item Value Reference Range Comments PROTIME (BEAKER) (test tzjk=072) 16.8 seconds 11.9-14.2 INR (BEAKER) (test oclc=668) 1.4 <=5.9 PARTIAL THROMBOPLASTIN TIME (BEAKER) (test 27.0 seconds 22.5-36.0 yhma=568) Effective 10/24/2018: PT Reference Range ChangeNew: 11.9-14.2 Previous: 11.7- 14.7RECOMMENDED COUMADIN/WARFARIN INR THERAPY RANGESSTANDARD DOSE: 2.0-3.0 Includes: PROPHYLAXIS for venous thrombosis, systemic embolization; TREATMENT for venous thrombosis and/or pulmonary embolus.HIGH RISK: Target INR is2.5-3.5 for patients wiht mechanical heart valves.[id number] 04:29:00 Test Item Value Reference Range Comments FIBRINOGEN LEVEL (BEAKER) (test iqcs=292) 218 mg/dl 225-434 POCT-GLUCOSE [id number] 00:18:00 Test Item Value Reference Range Comments POC-GLUCOSE METER (BEAKER) 153 mg/dL 70-110 TESTED AT [address] (test ofjj=4025) [place] [id number] HEMOGLOBIN AND [id number] 00:17:00 Test Item Value Reference Range Comments HEMOGLOBIN (BEAKER) (test jucg=162) 9.1 GM/DL 11.2-15.7 HEMATOCRIT (BEAKER) (test gxxc=044) 27.7 % 34.1-44.9 POCT-GLUCOSE [id number] 18:00:00 Test Item Value Reference Range Comments POC-GLUCOSE METER (BEAKER) 177 mg/dL 70-110 TESTED AT [address] (test kdps=2087) [facility] [address] BASIC METABOLIC [id number] 13:48:00 Test Item Value Reference Range Comments SODIUM (BEAKER) (test 148 meq/L 136-145 tijs=190) POTASSIUM (BEAKER) (test 3.4 meq/L 3.5-5.1 ygjh=983) CHLORIDE (BEAKER) (test 119 meq/L 98-107 cade=436) CO2 (BEAKER) (test 25 meq/L 22-29 dgyr=238) BLOOD UREA NITROGEN 36 mg/dL 7-21 (BEAKER) (test qlnz=173) CREATININE (BEAKER) (test 0.73 mg/dL 0.57-1.25 ytid=332) GLUCOSE RANDOM (BEAKER) 165 mg/dL 70-105 (test bfes=131) CALCIUM (BEAKER) (test 7.8 mg/dL 8.4-10.2 eqmf=141) EGFR (BEAKER) (test 81 mL/min/1.73 sq m ESTIMATED GFR IS NOT hogs=6457) ACCURATE CREATININE CLEARANCE IN PREDICTING GLOMERULAR FILTRATION RATE. ESTIMATED GFR IS NOT APPLICABLE FOR DIALYSIS PATIENTS. [id number] 13:45:00 Test Item Value Reference Range Comments PHOSPHORUS (BEAKER) (test xlgw=444) 2.1 mg/dL 2.3-4.7 HEMOGLOBIN AND [id number] 13:30:00 Test Item Value Reference Range Comments HEMOGLOBIN (BEAKER) (test kyof=004) 6.9 GM/DL 11.2-15.7 HEMATOCRIT (BEAKER) (test xgwg=943) 21.5 % 34.1-44.9 POCT-GLUCOSE [id number] 12:17:00 Test Item Value Reference Range Comments POC-GLUCOSE METER (BEAKER) 179 mg/dL 70-[address] [facility] [address] (test chbc=5752) [facility] [address] CBC W/PLT COUNT & AUTO [id number] 10:50:00 Test Item Value Reference Range Comments WHITE BLOOD CELL COUNT (BEAKER) (test cfji=609) 14.7 K/ L 3.5-10.5 RED BLOOD CELL COUNT (BEAKER) (test ynxc=774) 2.30 M/ L 3.93-5.22 HEMOGLOBIN (BEAKER) (test ogph=491) 7.4 GM/DL 11.2-15.7 HEMATOCRIT (BEAKER) (test nqbj=057) 22.5 % 34.1-44.9 MEAN CORPUSCULAR VOLUME (BEAKER) (test dhgd=268) 97.8 fL 79.4-94.8 MEAN CORPUSCULAR HEMOGLOBIN (BEAKER) (test 32.2 pg 25.6-32.2 awgn=544) MEAN CORPUSCULAR HEMOGLOBIN CONC (BEAKER) (test 32.9 GM/DL 32.2-35.5 nkyu=505) RED CELL DISTRIBUTION WIDTH (BEAKER) (test 22.2 % 11.7-14.4 dkdn=295) PLATELET COUNT (BEAKER) (test vvno=276) 120 K/CU MM 150-450 MEAN PLATELET VOLUME (BEAKER) (test rvux=580) 11.9 fL 9.4-12.3 NUCLEATED RED BLOOD CELLS (BEAKER) (test 2 /100 WBC 0-0 butg=545) (CELLAVISION MANUAL DIFF)2018-12-05 10:50:00 Test Item Value Reference Range Comments NEUTROPHILS - REL (CELLAVISION)(BEAKER) (test 77 % foqs=4777) LYMPHOCYTES - REL (CELLAVISION)(BEAKER) (test 15 % khbo=9128) MONOCYTES - REL (CELLAVISION)(BEAKER) (test 8 % mmaa=6810) BANDS - REL (CELLAVISION)(BEAKER) (test 1 % 0-10 jdel=5856) NEUTROPHILS - ABS (CELLAVISION)(BEAKER) (test 11.32 K/ul 1.56-6.13 lxac=2203) LYMPHOCYTES - ABS (CELLAVISION)(BEAKER) (test 2.21 K/ul 1.18-3.74 terv=1510) MONOCYTES - ABS (CELLAVISION)(BEAKER) (test 1.18 K/uL 0.24-0.36 hfxl=7704) BANDS - ABS (CELLAVISION)(BEAKER) (test 0.15 K/uL 0.00-0.80 txlz=8282) TOTAL COUNTED (BEAKER) (test imyo=4433) 100 MANUAL NRBC PER 100 CELLS (BEAKER) (test 3 /100 WBC 0-0 vbna=5938) WBC MORPHOLOGY (BEAKER) (test ywjz=400) Normal PLT MORPHOLOGY (BEAKER) (test jhyv=197) Normal POLYCHROMATOPHILLIC RBCS(BEAKER) (test iwnq=073) 1+ few MICROCYTES (BEAKER) (test rtgb=284) 1+ few MACROCYTES (BEAKER) (test vchj=591) 1+ few OVALOCYTES (BEAKER) (test xqix=903) 1+ few ARTIFACT (CELLAVISION)(BEAKER) (test nkti=7561) Present PLATELET CONCENTRATION (CELLAVISION)(BEAKER) Decreased (test gvub=1085) Received comment: User comments: Slide comments:POCT-GLUCOSE [id number] 06: 14:00 Test Item Value Reference Range Comments POC-GLUCOSE METER (BEAKER) 173 mg/dL 70-[address] [facility] [address] (test vpqm=8272) [facility] [address] U/S, ABDOMINAL, WITH [id number] 05:32:00Reason for exam:->evaluate portal vein, evaluate biliary [...] MDReport Verified Date/Time: 12/05/2018 05:32:17 BASIC METABOLIC [id number] 04:35:00 Test Item Value Reference Range Comments SODIUM (BEAKER) (test 150 meq/L 136-145 nzdw=180) POTASSIUM (BEAKER) (test 3.6 meq/L 3.5-5.1 bgpr=395) CHLORIDE (BEAKER) (test 121 meq/L 98-107 syab=483) CO2 (BEAKER) (test 20 meq/L 22-29 sene=254) BLOOD UREA NITROGEN 38 mg/dL 7-21 (BEAKER) (test zryr=177) CREATININE (BEAKER) (test 0.73 mg/dL 0.57-1.25 ntbo=702) GLUCOSE RANDOM (BEAKER) 162 mg/dL 70-105 (test wldj=094) CALCIUM (BEAKER) (test 8.2 mg/dL 8.4-10.2 tiin=185) EGFR (BEAKER) (test 81 mL/min/1.73 sq m ESTIMATED GFR IS NOT ycjk=7640) ACCURATE CREATININE CLEARANCE IN PREDICTING GLOMERULAR FILTRATION RATE. ESTIMATED GFR IS NOT APPLICABLE FOR DIALYSIS PATIENTS. [id number] 04:34:00 Test Item Value Reference Range Comments PHOSPHORUS (BEAKER) (test ryjm=319) 2.0 mg/dL 2.3-4.7 [id number] 04:34:00 Test Item Value Reference Range Comments MAGNESIUM (BEAKER) (test tgop=686) 2.1 mg/dL 1.6-2.6 HEPATIC FUNCTION [id number] 04:34:00 Test Item Value Reference Range Comments TOTAL PROTEIN (BEAKER) (test tamk=398) 4.9 gm/dL 6.0-8.3 ALBUMIN (BEAKER) (test qpnv=5757) 3.0 g/dL 3.5-5.0 BILIRUBIN TOTAL (BEAKER) (test xzhc=156) 0.9 mg/dL 0.2-1.2 BILIRUBIN DIRECT (BEAKER) (test kxee=990) 0.5 mg/dL 0.1-0.5 ALKALINE PHOSPHATASE (BEAKER) (test vffk=569) 50 U/L 40-150 AST (SGOT) (BEAKER) (test jkuy=665) 505 U/L 5-34 ALT (SGPT) (BEAKER) (test rojn=699) 549 U/L 6-55 [id number] 04:15:00 Test Item Value Reference Range Comments AMMONIA (BEAKER) (test wkzq=258) 97 mol/L 18-72 LACTIC ACID, [id number] 04:10:00 Test Item Value Reference Range Comments LACTATE BLOOD VENOUS (2) (BEAKER) (test 2.6 mmol/L 0.5-2.2 qgzr=3285) [id number] 03:54:00 Test Item Value Reference Range Comments PROTIME (BEAKER) (test lzbi=960) 19.2 seconds 11.9-14.2 INR (BEAKER) (test uszd=847) 1.7 <=5.9 PARTIAL THROMBOPLASTIN TIME (BEAKER) (test 31.6 seconds 22.5-36.0 hjwo=755) Effective 10/24/2018: PT Reference Range ChangeNew: 11.9-14.2 Previous: 11.7- 14.7RECOMMENDED COUMADIN/WARFARIN INR THERAPY RANGESSTANDARD DOSE: 2.0-3.0 Includes: PROPHYLAXIS for venous thrombosis, systemic embolization; TREATMENT for venous thrombosis and/or pulmonary embolus.HIGH RISK: Target INR is2.5-3.5 for patients wiht mechanical heart valves.[id number] 03:54:00 Test Item Value Reference Range Comments FIBRINOGEN LEVEL (BEAKER) (test epoq=665) 188 mg/dl 225-434 POCT-GLUCOSE [id number] 00:17:00 Test Item Value Reference Range Comments POC-GLUCOSE METER (BEAKER) 185 mg/dL 70-[address] [facility] [address] (test fvap=6930) [place] [address] HEMOGLOBIN AND [id number] 21:43:00 Test Item Value Reference Range Comments HEMOGLOBIN (BEAKER) (test wfwz=329) 8.1 GM/DL 11.2-15.7 HEMATOCRIT (BEAKER) (test srti=790) 24.3 % 34.1-44.9 [id number] 19:32:00 Test Item Value Reference Range Comments FERRITIN (BEAKER) (test yocs=781) 2039 ng/mL 5-275 T4, [id number] 18:58:00 Test Item Value Reference Range Comments FREE T4 (BEAKER) (test ctjt=501) 0.91 ng/dL 0.70-1.48 (CELLAVISION MANUAL DIFF)2018-12-04 18:52:00 Test Item Value Reference Range Comments NEUTROPHILS - REL (CELLAVISION)(BEAKER) (test 79 % usbn=2533) LYMPHOCYTES - REL (CELLAVISION)(BEAKER) (test 15 % dubf=1697) MONOCYTES - REL (CELLAVISION)(BEAKER) (test 4 % owmd=1670) BANDS - REL (CELLAVISION)(BEAKER) (test 1 % 0-10 xapj=9125) NEUTROPHILS - ABS (CELLAVISION)(BEAKER) (test 14.38 K/ul 1.56-6.13 aqli=5643) LYMPHOCYTES - ABS (CELLAVISION)(BEAKER) (test 2.73 K/ul 1.18-3.74 ivyg=9879) MONOCYTES - ABS (CELLAVISION)(BEAKER) (test 0.73 K/uL 0.24-0.36 faag=7110) BANDS - ABS (CELLAVISION)(BEAKER) (test 0.18 K/uL 0.00-0.80 bxtt=7115) TOTAL COUNTED (BEAKER) (test iopl=0334) 100 MANUAL NRBC PER 100 CELLS (BEAKER) (test 3 /100 WBC 0-0 yzfq=2896) SMUDGE CELLS (BEAKER) (test wufm=2607) Present GIANT PLATELETS (BEAKER) (test ioxh=211) Present PLASMACYTOID LYMPHS(BEAKER) (test alxq=1313) Present POLYCHROMATOPHILLIC RBCS(BEAKER) (test yirj=204) 1+ few ANISOCYTOSIS (BEAKER) (test eseo=239) 1+ few MACROCYTES (BEAKER) (test ympp=009) 1+ few POIKILOCYTES (BEAKER) (test hzpy=637) 1+ few OVALOCYTES (BEAKER) (test srou=471) 1+ few ARTIFACT (CELLAVISION)(BEAKER) (test nlmh=8920) Present HELMET CELLS (CELLAVISION)(BEAKER) (test 1+ few ybnk=3580) PLATELET CONCENTRATION (CELLAVISION)(BEAKER) Adequate (test zkch=5591) Received comment: User comments: Slide comments:[id number] 18:41:00 Test Item Value Reference Range Comments PROCALCITONIN (BEAKER) (test auyj=5993) 0.20 ng/mL <0.05 SEPSIS RISK (ng/mL)Low: 0.05-0.50Intermediate: 0.51-2.00High: & gt;=2.01HEPATITIS A ANTIBODY, [id number] 18:27:00 Test Item Value Reference Range Comments HEPATITIS A IGG ANTIBODY (BEAKER) (test eceo=1992) Reactive Nonreactive HEPATITIS B SURFACE [id number] 18:26:00 Test Item Value Reference Range Comments HEPATITIS B SURFACE ANTIBODY (BEAKER) (test < mIU/mL <8.0 koks=504) TSH/FREE T4 IF [id number] 18:26:00 Test Item Value Reference Range Comments THYROID STIMULATING HORMONE (BEAKER) (test 0.08 uIU/mL 0.35-4.94 rnvz=772) ALPHA FETOPROTEIN (AFP), TUMOR [id number] 18:26:00 Test Item Value Reference Range Comments ALPHA-FETOPROTEIN (BEAKER) (test puoo=2711) 2.2 ng/mL <10.0 HEPATITIS A ANTIBODY, [id number] 18:26:00 Test Item Value Reference Range Comments HEPATITIS A IGM ANTIBODY (BEAKER) (test Nonreactive Nonreactive rcfh=905) HEPATITIS B CORE ANTIBODY, [id number] 18:26:00 Test Item Value Reference Range Comments HEPATITIS B CORE TOTAL ANTIBODY (BEAKER) (test Nonreactive Nonreactive dxsh=198) HEPATITIS B SURFACE [id number] 18:23:00 Test Item Value Reference Range Comments HEPATITIS B SURFACE ANTIGEN (2) (BEAKER) (test Nonreactive Nonreactive bqrs=6747) HEPATITIS C [id number] 18:23:00 Test Item Value Reference Range Comments HEPATITIS C ANTIBODY (BEAKER) (test kwxn=158) Nonreactive Nonreactive RAD, CHEST, 1 VIEW, NON [id number] 18:18:00Reason for exam:->hypoxemiaIs the patient ?->NoShould this [...] MDReport Verified Date/Time: 12/04/2018 18:18:54 Reading Location: [address] Consult Reading Room CBC W/PLT COUNT & AUTO [id number] 18:17:00 Test Item Value Reference Range Comments WHITE BLOOD CELL COUNT (BEAKER) (test nhaq=747) 18.2 K/ L 3.5-10.5 RED BLOOD CELL COUNT (BEAKER) (test exlt=029) 2.70 M/ L 3.93-5.22 HEMOGLOBIN (BEAKER) (test lewx=774) 8.5 GM/DL 11.2-15.7 HEMATOCRIT (BEAKER) (test dxio=982) 26.1 % 34.1-44.9 MEAN CORPUSCULAR VOLUME (BEAKER) (test gaws=062) 96.7 fL 79.4-94.8 MEAN CORPUSCULAR HEMOGLOBIN (BEAKER) (test 31.5 pg 25.6-32.2 mbxn=988) MEAN CORPUSCULAR HEMOGLOBIN CONC (BEAKER) (test 32.6 GM/DL 32.2-35.5 htfp=314) RED CELL DISTRIBUTION WIDTH (BEAKER) (test 22.2 % 11.7-14.4 kcwb=217) PLATELET COUNT (BEAKER) (test fjcw=201) 158 K/CU MM 150-450 MEAN PLATELET VOLUME (BEAKER) (test pcte=223) 11.4 fL 9.4-12.3 NUCLEATED RED BLOOD CELLS (BEAKER) (test 1 /100 WBC 0-0 wxmz=284) NEUTROPHILS RELATIVE PERCENT (BEAKER) (test 71 % zbik=756) LYMPHOCYTES RELATIVE PERCENT (BEAKER) (test 18 % xgnv=036) MONOCYTES RELATIVE PERCENT (BEAKER) (test 10 % wksp=531) EOSINOPHILS RELATIVE PERCENT (BEAKER) (test 0 % msoq=613) BASOPHILS RELATIVE PERCENT (BEAKER) (test 0 % xnlx=236) NEUTROPHILS ABSOLUTE COUNT (BEAKER) (test 12.85 K/ L 1.56-6.13 pquu=189) LYMPHOCYTES ABSOLUTE COUNT (BEAKER) (test 3.35 K/ L 1.18-3.74 ykil=589) MONOCYTES ABSOLUTE COUNT (BEAKER) (test 1.74 K/ L 0.24-0.36 qykd=380) EOSINOPHILS ABSOLUTE COUNT (BEAKER) (test 0.01 K/ L 0.04-0.36 wqji=279) BASOPHILS ABSOLUTE COUNT (BEAKER) (test 0.08 K/ L 0.01-0.08 xxgs=178) IMMATURE GRANULOCYTES-RELATIVE PERCENT (BEAKER) 1 % 0-1 (test igyj=2322) B-TYPE NATRIURETIC FACTOR (BNP)2018-12-04 18:10:00 Test Item Value Reference Range Comments B-TYPE NATRIURETIC PEPTIDE (BEAKER) (test 155 pg/mL 0-100 jlou=219) COMPREHENSIVE METABOLIC [id number] 18:08:00 Test Item Value Reference Range Comments TOTAL PROTEIN (BEAKER) 5.5 gm/dL 6.0-8.3 (test pmwm=234) ALBUMIN (BEAKER) (test 3.3 g/dL 3.5-5.0 kthf=3234) ALKALINE PHOSPHATASE 55 U/L 40-150 (BEAKER) (test ygrh=340) BILIRUBIN TOTAL (BEAKER) 1.1 mg/dL 0.2-1.2 (test mmlb=510) SODIUM (BEAKER) (test 150 meq/L 136-145 sbsg=186) POTASSIUM (BEAKER) (test 3.5 meq/L 3.5-5.1 brch=309) CHLORIDE (BEAKER) (test 122 meq/L 98-107 cwnl=030) CO2 (BEAKER) (test 18 meq/L 22-29 wked=537) BLOOD UREA NITROGEN 38 mg/dL 7-21 (BEAKER) (test ipyl=457) CREATININE (BEAKER) (test 0.78 mg/dL 0.57-1.25 fnob=698) GLUCOSE RANDOM (BEAKER) 168 mg/dL 70-105 (test whsp=874) CALCIUM (BEAKER) (test 8.5 mg/dL 8.4-10.2 rmbj=226) AST (SGOT) (BEAKER) (test 825 U/L 5-34 hsik=538) ALT (SGPT) (BEAKER) (test 712 U/L 6-55 poqe=253) EGFR (BEAKER) (test 75 mL/min/1.73 sq m ESTIMATED GFR IS NOT jagv=2129) ACCURATE CREATININE CLEARANCE IN PREDICTING GLOMERULAR FILTRATION RATE. ESTIMATED GFR IS NOT APPLICABLE FOR DIALYSIS PATIENTS. [id number] 18:07:00 Test Item Value Reference Range Comments PHOSPHORUS (BEAKER) (test nnjz=317) 2.2 mg/dL 2.3-4.7 [id number] 18:07:00 Test Item Value Reference Range Comments MAGNESIUM (BEAKER) (test camu=432) 2.0 mg/dL 1.6-2.6 CHLORIDE, RANDOM [id number] 18:03:00 Test Item Value Reference Range Comments CHLORIDE URINE (BEAKER) (test qqdw=822) 58 meq/L Reference Range: No NormalsCREATININE, RANDOM [id number] 18:03:00 Test Item Value Reference Range Comments CREATININE URINE (BEAKER) (test pfzy=150) 90.3 mg/dL Reference Range: No NormalsPROTEIN, RANDOM [id number] 18:03:00 Test Item Value Reference Range Comments PROTEIN, URINE (BEAKER) (test raea=3642) 17 mg/dL 0-14 SODIUM, RANDOM [id number] 18:03:00 Test Item Value Reference Range Comments SODIUM URINE (BEAKER) (test eeke=833) < meq/L Reference Range: No [id number] 18:02:00 Test Item Value Reference Range Comments ALPHA-1 ANTITRYPSIN (BEAKER) (test htcl=318) 156.80 mg/dL 90.00-200.00 IRON, TIBC, % SAT. (WITHOUT FERRITIN)2018-12-04 18:02:00 Test Item Value Reference Range Comments IRON (BEAKER) (test ftbg=209) 140.0 ug/dL 40.0-160.0 TOTAL IRON BINDING CAPACITY (BEAKER) (test 258 ug/dL 250-450 qcmy=011) IRON % SATURATION (2) (BEAKER) (test alnl=3881) 54 % 20-55 RAD, ABDOMEN/KUB, 1 VIEW [id number] 18:00:00Reason for exam:->abdominal distentionShould this be performed [...] MDReport Verified Date/Time: 12/04/2018 18:00:28 Reading Location: [address] Consult Reading Room LACTIC ACID, [id number] 17:59:00 Test Item Value Reference Range Comments LACTATE BLOOD VENOUS (2) 5.4 mmol/L 0.5-2.2 Specimen slightly hemolyzed (BEAKER) (test solr=5582) [id number] 17:58:00 Test Item Value Reference Range Comments AMMONIA (BEAKER) (test vjkr=817) 121 mol/L 18-72 URINALYSIS W/ REFLEX URINE [id number] 17:57:00 Test Item Value Reference Range Comments COLOR (BEAKER) (test jqvp=823) Yellow CLARITY (BEAKER) (test bval=236) Clear SPECIFIC GRAVITY UA (BEAKER) (test batl=121) 1.022 1.001-1.035 PH UA (BEAKER) (test peci=939) 6.0 5.0-8.0 PROTEIN UA (BEAKER) (test ohhg=516) 10 mg/dL Negative GLUCOSE UA (BEAKER) (test lnfb=818) Negative Negative KETONES UA (BEAKER) (test wcye=001) Negative Negative BILIRUBIN UA (BEAKER) (test gqpu=434) Negative Negative BLOOD UA (BEAKER) (test pfug=847) Moderate Negative NITRITE UA (BEAKER) (test cqvp=921) Negative Negative LEUKOCYTE ESTERASE UA (BEAKER) (test wzfv=740) Small Negative UROBILINOGEN UA (BEAKER) (test qnbc=171) 0.2 mg/dL 0.2-1.0 RBC UA (BEAKER) (test jreh=487) 23 /HPF WBC UA (BEAKER) (test ihzp=127) 16 /HPF MUCUS (BEAKER) (test sakk=9733) Rare SOURCE(BEAKER) (test snax=8039) [id number] 17:57:00 Test Item Value Reference Range Comments PROTIME (BEAKER) (test gzsm=896) 19.5 seconds 11.9-14.2 INR (BEAKER) (test bbfk=521) 1.7 <=5.9 PARTIAL THROMBOPLASTIN TIME (BEAKER) (test 29.0 seconds 22.5-36.0 utcb=602) Effective 10/24/2018: PT Reference Range ChangeNew: 11.9-14.2 Previous: 11.7- 14.7RECOMMENDED COUMADIN/WARFARIN INR THERAPY RANGESSTANDARD DOSE: 2.0-3.0 Includes: PROPHYLAXIS for venous thrombosis, systemic embolization; TREATMENT for venous thrombosis and/or pulmonary embolus.HIGH RISK: Target INR is2.5-3.5 for patients wiht mechanical heart valves.[id number] 17:57:00 Test Item Value Reference Range Comments FIBRINOGEN LEVEL (BEAKER) (test cild=590) 224 mg/dl 225-434 BLOOD GAS, [id number] 17:46:00 Test Item Value Reference Range Comments PH ARTERIAL (BEAKER) (test eecz=910) 7.46 7.35-7.45 PCO2 ARTERIAL (BEAKER) (test askp=289) 27 mmHg 35-45 PO2 ARTERIAL (BEAKER) (test gres=660) 83 mmHg 80-90 O2 SATURATION ARTERIAL (BEAKER) (test vuxu=003) 97.0 % 96.0-97.0 HCO3 ARTERIAL (BEAKER) (test titc=278) 19 mmol/L 21-29 BASE EXCESS ARTERIAL (BEAKER) (test pdrf=512) -4.3 mmol/L -2.0-3.0 PATIENT TEMPERATURE (BEAKER) (test ythl=3246) 36.7 C FIO2 (BEAKER) (test fhrm=2456) 40.0 %
[2019-05-07] MEDS ORDERED: Ringers Lactate 1,000 ML IV ONE (09:55)
[2019-05-07] MEDS ORDERED: ONDANSETRON 4 MG/2 ML VIAL ONE (11:21)
[2019-05-07] MEDS ORDERED: LIDOCAINE 1% MPF 5 ML VIAL ONE (12:36)
[2019-05-07] MEDS ORDERED: propofoL 200 MG/20 ML VIAL IV ONE (12:36)
--- NOTE | 2019-05-07 12:58 | ENDO RPT ---
[address], [address] EGD PROCEDURE REPORT EXAM DATE: 05/07/2019 PATIENT NAME: Kaitlyn Sesay MR#: [id number] BIRTHDATE: 1960 ATTENDING: Riley Lacy Dr STATUS: outpatient [employer] OPERATOR: Abril Black RN and Svetlana Ng INDICATIONS: The patient is a 59 yr old Female here for an EGD due to follow-up of esophageal varices PROCEDURE PERFORMED: EGD with banding MEDICATIONS: Per Anesthesia. TOPICAL ANESTHETIC: none CONSENT: The patient understands the risks and benefits of the procedure and understands that these risks include, but are not limited to: sedation, allergic reaction, infection, perforation and/or bleeding. Alternative means of evaluation and treatment include, among others: physical exam, x-rays, and/or surgical intervention. The patient elects to proceed with this endoscopic procedure. DESCRIPTION OF PROCEDURE: During intra-op preparation period all mechanical medical equipment was checked for proper function. Hand hygiene and appropriate measures for infection prevention was taken. Procedure, possible complications, and alternatives including but not limited to the possibility of bleeding, perforation, tear, infection, sepsis, need for surgery, need for blood transfusion, and anesthesia related complications were explained to the patient. After the risks, benefits and alternatives of the procedure were thoroughly explained, Informed consent was verified, confirmed and timeout was successfully executed by the treatment team. The patient was placed in the left lateral position. The patient was anesthetized with topical anesthesia. Through the anesthetized oropharyngeal area, the scope was passed without any difficulty. The [id number] ([id number]) and Pentax [id number] ([id number]) endoscope was introduced through the mouth and advanced to the second portion of the duodenum. Retroflexed views revealed no abnormalities. The gastroscope was then slowly withdrawn and removed. Grade II varices were found in the lower esophagus. Esophageal banding was performed. Gastropathy was found in the body of the stomach. ADVERSE EVENTS: There were no complications. IMPRESSIONS: 1. Three columns of grade II varices in the lower esophagus, s/p banding X3 2. Portal hypertensive gastropathy in the body of the stomach RECOMMENDATIONS: follow-up: GI clinic 1 week(s) REPEAT EXAM: Return in 1 month(s) for EGD with possible further esophageal varices banding. Riley Lacy Dr eSigned: Riley Lacy Dr 05/07/2019 12:57 PM cc: Sita Whyte CPT CODES: ICD9 CODES: PATIENT NAME: Kaitlyn Sesay MR#: [id number]
[2019-05-07] MEDS ORDERED: NS 0.9% VIAL 10 ML ONE (12:59)
[2019-05-07] MEDS ORDERED: Phenylephrine HCl 10 MG/ML 1 ML VIAL ONE (12:59)
[2019-05-07] MEDS ORDERED: PROMETHAZINE INJ 25 MG/ML AMP ONE (13:05)
[2019-05-07] MEDS ORDERED: HYDROMORPHONE HCL 1 MG/ML INJ ONE (13:22)
[2019-05-07] MEDS ORDERED: HYDROMORPHONE HCL 1 MG/ML INJ IV ONE (13:31)
[2019-05-07] MEDS ORDERED: MEPERIDINE HCL 25 MG/0.5 ML ONE (13:46)
[2019-05-07 14:22] VITALS: O2SAT 100
[2019-05-07 14:26] VITALS: TEMP 97.5
[2019-05-07 14:39] VITALS: BP 116/59
== END 2019-05-07 14:15 | disposition home or self-care (01) ==
LOC: OR 09:45
PROVIDERS: ATTEND Internal Medicine Gastroenterology
PROC: 06L38CZ Occlusion of Esophageal Vein with Extraluminal Device, Via Natural or Artificial Opening Endoscopic (ICD-10-PCS; principal; 2019-05-07 13:00)
DX: K74.60 Unspecified cirrhosis of liver (principal); I85.10 Secondary esophageal varices without bleeding; K76.6 Portal hypertension; K31.89 Other diseases of stomach and duodenum; K21.9 Gastro-esophageal reflux disease without esophagitis; I10 Essential (primary) hypertension; E07.9 Disorder of thyroid, unspecified; M19.90 Unspecified osteoarthritis, unspecified site; F17.210 Nicotine dependence, cigarettes, uncomplicated; Z88.0 Allergy status to penicillin; Z88.1 Allergy status to other antibiotic agents; Z88.2 Allergy status to sulfonamides; Z88.8 Allergy status to other drugs, medicaments and biological substances; Z80.0 Family history of malignant neoplasm of digestive organs; Z83.79 Family history of other diseases of the digestive system; Z82.49 Family history of ischemic heart disease and other diseases of the circulatory system
CPT/HCPCS: 43244; J2704; J2550; J2370; J2175; J1170 ×2; J7120; J2405

== ENCOUNTER 2019-07-03 06:21 | Day surgery (SDC) | payer OTHER ==
--- OUTSIDE RECORDS SUMMARY | 2019-07-03 06:33 | XMS REPORT ---
:1960 [facility] [address] [place] [address] [place] [id number] Care Team Providers Name Role Phone DONAVON MISTRY Unavailable Unavailable YRN PORTILLO Unavailable Unavailable Problems This patient has no known problems. Allergies, Adverse Reactions, Alerts This patient has no known allergies or adverse reactions. Medications This patient has no known medications. 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 Small bowel NOSB. Gastric [...] evaluated Immunohistochemistry technical testing was performed at [facility], Pathology Laboratory where it was developed and [...] (BEAKER) (test 207 mg/dL 70-110 TESTED AT [facility] [address] [place] [address] dwrf=9679) [facility] [address] POCT-GLUCOSE [id number] 08:03:00 Test Item Value Reference Range Comments POC-GLUCOSE METER (BEAKER) 117 mg/dL 70-110 TESTED AT [address] (test johm=1715) [place] [address] [id number] 06:09:00 Test Item Value Reference Range Comments MAGNESIUM (BEAKER) (test prmc=686) 1.9 mg/dL 1.6-2.6 BASIC METABOLIC [id number] 06:09:00 Test Item Value Reference Range Comments SODIUM (BEAKER) (test 136 meq/L 136-145 oeib=839) POTASSIUM (BEAKER) (test 3.8 meq/L 3.5-5.1 psam=156) CHLORIDE (BEAKER) (test 100 meq/L 98-107 jxpn=583) CO2 (BEAKER) (test 29 meq/L 22-29 gcxs=591) BLOOD UREA NITROGEN 10 mg/dL 7-21 (BEAKER) (test ipwy=351) CREATININE (BEAKER) (test 0.71 mg/dL 0.57-1.25 yqbh=263) GLUCOSE RANDOM (BEAKER) 100 mg/dL 70-105 (test hwkh=753) CALCIUM (BEAKER) (test 8.6 mg/dL 8.4-10.2 zmpz=154) EGFR (BEAKER) (test 84 mL/min/1.73 sq m ESTIMATED GFR IS NOT yjgl=8412) ACCURATE CREATININE CLEARANCE IN PREDICTING GLOMERULAR FILTRATION RATE. ESTIMATED GFR IS NOT APPLICABLE FOR DIALYSIS PATIENTS. HEPATIC FUNCTION [id number] 06:09:00 Test Item Value Reference Range Comments TOTAL PROTEIN (BEAKER) (test skce=961) 5.8 gm/dL 6.0-8.3 ALBUMIN (BEAKER) (test zsbz=9135) 3.3 g/dL 3.5-5.0 BILIRUBIN TOTAL (BEAKER) (test gggg=730) 1.5 mg/dL 0.2-1.2 BILIRUBIN DIRECT (BEAKER) (test ytme=165) 0.9 mg/dL 0.1-0.5 ALKALINE PHOSPHATASE (BEAKER) (test ksis=329) 70 U/L 40-150 AST (SGOT) (BEAKER) (test jtjx=447) 38 U/L 5-34 ALT (SGPT) (BEAKER) (test hluv=757) 44 U/L 6-55 [id number] 05:47:00 Test Item Value Reference Range Comments PROTIME (BEAKER) (test pnrj=137) 17.3 seconds 11.9-14.2 INR (BEAKER) (test wakm=860) 1.5 <=5.9 PARTIAL THROMBOPLASTIN TIME (BEAKER) (test 36.2 seconds 22.5-36.0 eook=758) Effective 10/24/2018: PT Reference Range ChangeNew: 11.9-14.2 Previous: 11.7- 14.7RECOMMENDED COUMADIN/WARFARIN INR THERAPY RANGESSTANDARD DOSE: 2.0-3.0 Includes: PROPHYLAXIS for venous thrombosis, systemic embolization; TREATMENT for venous thrombosis and/or pulmonary embolus.HIGH RISK: Target INR is2.5-3.5 for patients wiht mechanical heart valves.CBC W/PLT COUNT & AUTO [id number] 05:46:00 Test Item Value Reference Range Comments WHITE BLOOD CELL COUNT (BEAKER) (test pgba=652) 8.4 K/ L 3.5-10.5 RED BLOOD CELL COUNT (BEAKER) (test tlux=810) 2.61 M/ L 3.93-5.22 HEMOGLOBIN (BEAKER) (test bbul=796) 8.3 GM/DL 11.2-15.7 HEMATOCRIT (BEAKER) (test zjqr=183) 25.5 % 34.1-44.9 MEAN CORPUSCULAR VOLUME (BEAKER) (test akss=412) 97.7 fL 79.4-94.8 MEAN CORPUSCULAR HEMOGLOBIN (BEAKER) (test 31.8 pg 25.6-32.2 tuxl=373) MEAN CORPUSCULAR HEMOGLOBIN CONC (BEAKER) (test 32.5 GM/DL 32.2-35.5 czgq=624) RED CELL DISTRIBUTION WIDTH (BEAKER) (test 20.8 % 11.7-14.4 gpza=182) PLATELET COUNT (BEAKER) (test koai=925) 89 K/CU MM 150-450 MEAN PLATELET VOLUME (BEAKER) (test mfuf=436) 11.3 fL 9.4-12.3 NUCLEATED RED BLOOD CELLS (BEAKER) (test 0 /100 WBC 0-0 wgai=802) NEUTROPHILS RELATIVE PERCENT (BEAKER) (test 55 % vobv=482) LYMPHOCYTES RELATIVE PERCENT (BEAKER) (test 27 % hcws=855) MONOCYTES RELATIVE PERCENT (BEAKER) (test 16 % iokt=936) EOSINOPHILS RELATIVE PERCENT (BEAKER) (test 2 % vexj=483) BASOPHILS RELATIVE PERCENT (BEAKER) (test 1 % pymg=899) NEUTROPHILS ABSOLUTE COUNT (BEAKER) (test 4.57 K/ L 1.56-6.13 mahu=874) LYMPHOCYTES ABSOLUTE COUNT (BEAKER) (test 2.23 K/ L 1.18-3.74 zize=011) MONOCYTES ABSOLUTE COUNT (BEAKER) (test jxfh=991) 1.30 K/ L 0.24-0.36 EOSINOPHILS ABSOLUTE COUNT (BEAKER) (test 0.18 K/ L 0.04-0.36 htei=520) BASOPHILS ABSOLUTE COUNT (BEAKER) (test jchy=872) 0.04 K/ L 0.01-0.08 IMMATURE GRANULOCYTES-RELATIVE PERCENT (BEAKER) 1 % 0-1 (test qquh=2039) POCT-GLUCOSE [id number] 23:48:00 Test Item Value Reference Range Comments POC-GLUCOSE METER (BEAKER) 182 mg/dL 70-110 TESTED AT [address] (test cbny=2358) [facility] [address] POCT-GLUCOSE [id number] 18:04:00 Test Item Value Reference Range Comments POC-GLUCOSE METER (BEAKER) 95 mg/dL 70-110 TESTED AT [address] (test mpfz=2557) [facility] [address] HEMOGLOBIN AND [id number] 17:04:00 Test Item Value Reference Range Comments HEMOGLOBIN (BEAKER) (test oiev=902) 8.8 GM/DL 11.2-15.7 HEMATOCRIT (BEAKER) (test xdlu=898) 27.4 % 34.1-44.9 BLOOD GAS, [id number] 15:45:00 Test Item Value Reference Range Comments PH ARTERIAL (BEAKER) (test taab=327) 7.55 7.35-7.45 PCO2 ARTERIAL (BEAKER) (test njmn=140) 31 mmHg 35-45 PO2 ARTERIAL (BEAKER) (test kdpj=882) 62 mmHg 80-90 O2 SATURATION ARTERIAL (BEAKER) (test rhqy=236) 94.5 % 96.0-97.0 HCO3 ARTERIAL (BEAKER) (test cxje=792) 27 mmol/L 21-29 BASE EXCESS ARTERIAL (BEAKER) (test vlia=057) 4.5 mmol/L -2.0-3.0 PATIENT TEMPERATURE (BEAKER) (test fuaa=7021) 37.0 C Please draw blood w/ patient on room air and sitting for at least 15 minutes prior to lab drawPOCT-GLUCOSE [id number] 11:29:00 Test Item Value Reference Range Comments POC-GLUCOSE METER (BEAKER) 205 mg/dL 70-110 TESTED AT [address] (test rxrv=5757) [place] [id number] RAD, CHEST, 1 VIEW, NON [id number] 08:46:00Reason for exam:->shortness of breathShould this be [...] MDReport Verified Date/Time: 12/14/2018 08:46:53 Reading Location: [facility] Radiology Reading Room Electronically signed by: DAPHNE BISHOP M.D. on 08:46 AMPOCT-GLUCOSE [id number] 08:21:00 Test Item Value Reference Range Comments POC-GLUCOSE METER (BEAKER) 107 mg/dL 70-110 TESTED AT [facility] [address] [facility] (test rxfj=5223) [facility] [address] HEMOGLOBIN [id number] 08:02:00 Test Item Value Reference Range Comments HEMOGLOBIN A1C (BEAKER) (test usoa=621) 5.1 % 4.3-6.1 [id number] 07:51:00 Test Item Value Reference Range Comments MAGNESIUM (BEAKER) (test jzzw=943) 1.8 mg/dL 1.6-2.6 BASIC METABOLIC [id number] 07:51:00 Test Item Value Reference Range Comments SODIUM (BEAKER) (test 137 meq/L 136-145 pqry=792) POTASSIUM (BEAKER) (test 3.3 meq/L 3.5-5.1 tjje=373) CHLORIDE (BEAKER) (test 100 meq/L 98-107 djjv=369) CO2 (BEAKER) (test 28 meq/L 22-29 jplc=225) BLOOD UREA NITROGEN 11 mg/dL 7-21 (BEAKER) (test ylnm=461) CREATININE (BEAKER) (test 0.65 mg/dL 0.57-1.25 pbzz=051) GLUCOSE RANDOM (BEAKER) 91 mg/dL 70-105 (test fldf=855) CALCIUM (BEAKER) (test 8.3 mg/dL 8.4-10.2 vrmi=733) EGFR (BEAKER) (test 93 mL/min/1.73 sq m ESTIMATED GFR IS NOT qbor=7169) ACCURATE CREATININE CLEARANCE IN PREDICTING GLOMERULAR FILTRATION RATE. ESTIMATED GFR IS NOT APPLICABLE FOR DIALYSIS PATIENTS. Specimen slightly ictericHEPATIC FUNCTION [id number] 07:51:00 Test Item Value Reference Range Comments TOTAL PROTEIN (BEAKER) (test tbkw=006) 5.4 gm/dL 6.0-8.3 ALBUMIN (BEAKER) (test rxae=0489) 3.2 g/dL 3.5-5.0 BILIRUBIN TOTAL (BEAKER) (test srfu=322) 1.9 mg/dL 0.2-1.2 BILIRUBIN DIRECT (BEAKER) (test ggqw=821) 0.9 mg/dL 0.1-0.5 ALKALINE PHOSPHATASE (BEAKER) (test pomz=734) 63 U/L 40-150 AST (SGOT) (BEAKER) (test scci=018) 40 U/L 5-34 ALT (SGPT) (BEAKER) (test yctj=741) 48 U/L 6-55 Specimen slightly ictericCBC W/PLT COUNT & AUTO [id number] 05:44 :00 Test Item Value Reference Range Comments WHITE BLOOD CELL COUNT (BEAKER) (test jsge=456) 8.1 K/ L 3.5-10.5 RED BLOOD CELL COUNT (BEAKER) (test uftp=289) 2.55 M/ L 3.93-5.22 HEMOGLOBIN (BEAKER) (test yamb=668) 7.9 GM/DL 11.2-15.7 HEMATOCRIT (BEAKER) (test qvny=531) 25.1 % 34.1-44.9 MEAN CORPUSCULAR VOLUME (BEAKER) (test urfk=967) 98.4 fL 79.4-94.8 MEAN CORPUSCULAR HEMOGLOBIN (BEAKER) (test 31.0 pg 25.6-32.2 efqt=491) MEAN CORPUSCULAR HEMOGLOBIN CONC (BEAKER) (test 31.5 GM/DL 32.2-35.5 kygl=292) RED CELL DISTRIBUTION WIDTH (BEAKER) (test 21.1 % 11.7-14.4 uzqr=245) PLATELET COUNT (BEAKER) (test fjzw=671) 81 K/CU MM 150-450 MEAN PLATELET VOLUME (BEAKER) (test ezas=236) 12.1 fL 9.4-12.3 NUCLEATED RED BLOOD CELLS (BEAKER) (test 0 /100 WBC 0-0 neoc=874) NEUTROPHILS RELATIVE PERCENT (BEAKER) (test 55 % rftu=017) LYMPHOCYTES RELATIVE PERCENT (BEAKER) (test 28 % loma=770) MONOCYTES RELATIVE PERCENT (BEAKER) (test 13 % iuwr=561) EOSINOPHILS RELATIVE PERCENT (BEAKER) (test 3 % efkt=802) BASOPHILS RELATIVE PERCENT (BEAKER) (test 1 % cacu=265) NEUTROPHILS ABSOLUTE COUNT (BEAKER) (test 4.46 K/ L 1.56-6.13 bkjf=464) LYMPHOCYTES ABSOLUTE COUNT (BEAKER) (test 2.25 K/ L 1.18-3.74 qlhx=660) MONOCYTES ABSOLUTE COUNT (BEAKER) (test mydy=400) 1.09 K/ L 0.24-0.36 EOSINOPHILS ABSOLUTE COUNT (BEAKER) (test 0.22 K/ L 0.04-0.36 rsco=692) BASOPHILS ABSOLUTE COUNT (BEAKER) (test igpy=112) 0.06 K/ L 0.01-0.08 IMMATURE GRANULOCYTES-RELATIVE PERCENT (BEAKER) 1 % 0-1 (test rbqr=5226) [id number] 05:41:00 Test Item Value Reference Range Comments PROTIME (BEAKER) (test rjum=091) 18.5 seconds 11.9-14.2 INR (BEAKER) (test czoy=121) 1.6 <=5.9 PARTIAL THROMBOPLASTIN TIME (BEAKER) (test 38.0 seconds 22.5-36.0 tayc=754) Effective 10/24/2018: PT Reference Range ChangeNew: 11.9-14.2 Previous: 11.7- 14.7RECOMMENDED COUMADIN/WARFARIN INR THERAPY RANGESSTANDARD DOSE: 2.0-3.0 Includes: PROPHYLAXIS for venous thrombosis, systemic embolization; TREATMENT for venous thrombosis and/or pulmonary embolus.HIGH RISK: Target INR is2.5-3.5 for patients wiht mechanical heart valves.POCT-GLUCOSE [id number] 00:43:00 Test Item Value Reference Range Comments POC-GLUCOSE METER (BEAKER) 131 mg/dL 70-110 TESTED AT [address] (test yhke=7064) [facility] [address] POCT-GLUCOSE [id number] 17:27:00 Test Item Value Reference Range Comments POC-GLUCOSE METER (BEAKER) 133 mg/dL 70-110 TESTED AT [place] [id number] [facility] (test awuz=7449) [facility] [address] POCT-GLUCOSE [id number] 14:27:00 Test Item Value Reference Range Comments POC-GLUCOSE METER (BEAKER) 136 mg/dL 70-110 TESTED AT [facility] [address] [facility] (test eraz=8607) [facility] [address] POCT-GLUCOSE [id number] 12:53:00 Test Item Value Reference Range Comments POC-GLUCOSE METER (BEAKER) 207 mg/dL 70-110 TESTED AT [facility] [address] [facility] (test futk=2339) [facility] [address] [id number] 07:55:00 Test Item Value Reference Range Comments PHOSPHORUS (BEAKER) (test gqsi=919) 2.9 mg/dL 2.3-4.7 [id number] 07:55:00 Test Item Value Reference Range Comments MAGNESIUM (BEAKER) (test udiw=114) 1.9 mg/dL 1.6-2.6 BASIC METABOLIC [id number] 07:55:00 Test Item Value Reference Range Comments SODIUM (BEAKER) (test 138 meq/L 136-145 ziva=835) POTASSIUM (BEAKER) (test 3.5 meq/L 3.5-5.1 vqhs=269) CHLORIDE (BEAKER) (test 103 meq/L 98-107 hjmu=557) CO2 (BEAKER) (test 27 meq/L 22-29 tfud=063) BLOOD UREA NITROGEN 14 mg/dL 7-21 (BEAKER) (test rbnn=167) CREATININE (BEAKER) (test 0.72 mg/dL 0.57-1.25 wxdt=060) GLUCOSE RANDOM (BEAKER) 112 mg/dL 70-105 (test elnx=521) CALCIUM (BEAKER) (test 8.8 mg/dL 8.4-10.2 jgph=896) EGFR (BEAKER) (test 83 mL/min/1.73 sq m ESTIMATED GFR IS NOT aodh=2832) ACCURATE CREATININE CLEARANCE IN PREDICTING GLOMERULAR FILTRATION RATE. ESTIMATED GFR IS NOT APPLICABLE FOR DIALYSIS PATIENTS. Specimen slightly ictericHEPATIC FUNCTION [id number] 07:55:00 Test Item Value Reference Range Comments TOTAL PROTEIN (BEAKER) (test pjpu=983) 6.0 gm/dL 6.0-8.3 ALBUMIN (BEAKER) (test sbuu=6077) 3.6 g/dL 3.5-5.0 BILIRUBIN TOTAL (BEAKER) (test sake=460) 2.1 mg/dL 0.2-1.2 BILIRUBIN DIRECT (BEAKER) (test fbvm=370) 1.0 mg/dL 0.1-0.5 ALKALINE PHOSPHATASE (BEAKER) (test aydg=580) 67 U/L 40-150 AST (SGOT) (BEAKER) (test ysps=076) 44 U/L 5-34 ALT (SGPT) (BEAKER) (test xewl=442) 64 U/L 6-55 Specimen slightly ictericPOCT-GLUCOSE [id number] 07:52:00 Test Item Value Reference Range Comments POC-GLUCOSE METER (BEAKER) 117 mg/dL 70-110 TESTED AT [facility] [address] [facility] (test rbnp=1593) [place] [address] CBC W/PLT COUNT & AUTO [id number] 06:01:00 Test Item Value Reference Range Comments WHITE BLOOD CELL COUNT (BEAKER) (test texw=779) 10.1 K/ L 3.5-10.5 RED BLOOD CELL COUNT (BEAKER) (test qyex=055) 2.79 M/ L 3.93-5.22 HEMOGLOBIN (BEAKER) (test snwf=603) 8.6 GM/DL 11.2-15.7 HEMATOCRIT (BEAKER) (test msyy=427) 28.0 % 34.1-44.9 MEAN CORPUSCULAR VOLUME (BEAKER) (test bjaq=509) 100.4 fL 79.4-94.8 MEAN CORPUSCULAR HEMOGLOBIN (BEAKER) (test 30.8 pg 25.6-32.2 yhbq=120) MEAN CORPUSCULAR HEMOGLOBIN CONC (BEAKER) (test 30.7 GM/DL 32.2-35.5 tvdx=769) RED CELL DISTRIBUTION WIDTH (BEAKER) (test 21.1 % 11.7-14.4 pite=017) PLATELET COUNT (BEAKER) (test jnwx=349) 89 K/CU MM 150-450 MEAN PLATELET VOLUME (BEAKER) (test vwma=478) 11.6 fL 9.4-12.3 NUCLEATED RED BLOOD CELLS (BEAKER) (test 0 /100 WBC 0-0 ghuq=646) NEUTROPHILS RELATIVE PERCENT (BEAKER) (test 65 % cmnl=555) LYMPHOCYTES RELATIVE PERCENT (BEAKER) (test 19 % jtsy=591) MONOCYTES RELATIVE PERCENT (BEAKER) (test 13 % xhkx=553) EOSINOPHILS RELATIVE PERCENT (BEAKER) (test 2 % vjqp=006) BASOPHILS RELATIVE PERCENT (BEAKER) (test 1 % yjet=231) NEUTROPHILS ABSOLUTE COUNT (BEAKER) (test 6.56 K/ L 1.56-6.13 rxko=103) LYMPHOCYTES ABSOLUTE COUNT (BEAKER) (test 1.87 K/ L 1.18-3.74 whgg=491) MONOCYTES ABSOLUTE COUNT (BEAKER) (test glsz=288) 1.34 K/ L 0.24-0.36 EOSINOPHILS ABSOLUTE COUNT (BEAKER) (test 0.23 K/ L 0.04-0.36 fuyi=736) BASOPHILS ABSOLUTE COUNT (BEAKER) (test bbhe=345) 0.06 K/ L 0.01-0.08 IMMATURE GRANULOCYTES-RELATIVE PERCENT (BEAKER) 1 % 0-1 (test gqer=1736) [id number] 05:56:00 Test Item Value Reference Range Comments PROTIME (BEAKER) (test gcbx=560) 18.7 seconds 11.9-14.2 INR (BEAKER) (test qsbl=698) 1.7 <=5.9 PARTIAL THROMBOPLASTIN TIME (BEAKER) (test 39.7 seconds 22.5-36.0 npkz=540) Effective 10/24/2018: PT Reference Range ChangeNew: 11.9-14.2 Previous: 11.7- 14.7RECOMMENDED COUMADIN/WARFARIN INR THERAPY RANGESSTANDARD DOSE: 2.0-3.0 Includes: PROPHYLAXIS for venous thrombosis, systemic embolization; TREATMENT for venous thrombosis and/or pulmonary embolus.HIGH RISK: Target INR is2.5-3.5 for patients wiht mechanical heart valves.BLOOD [id number] 02:01:00 Test Item Value Reference Range Comments CULTURE (BEAKER) (test otpb=6626) No growth in 5 days BLOOD [id number] 02:01:00 Test Item Value Reference Range Comments CULTURE (BEAKER) (test hmni=3088) No growth in 5 days POCT-GLUCOSE [id number] 00:06:00 Test Item Value Reference Range Comments POC-GLUCOSE METER (BEAKER) 118 mg/dL 70-110 TESTED AT [address] (test rvzx=8643) [facility] [address] POCT-GLUCOSE [id number] 17:25:00 Test Item Value Reference Range Comments POC-GLUCOSE METER (BEAKER) 105 mg/dL 70-110 TESTED AT [facility] [address] (test bkvd=1826) [facility] [address] HEMOGLOBIN AND [id number] 14:25:00 Test Item Value Reference Range Comments HEMOGLOBIN (BEAKER) (test kxma=568) 8.9 GM/DL 11.2-15.7 HEMATOCRIT (BEAKER) (test hcec=165) 28.5 % 34.1-44.9 Contact hospitalist if Hgb <7.0RAD, ABDOMEN/KUB, 1 VIEW [id number] 14:09: 00Reason for exam:->abd distentionFINAL REPORT Abdomen [...] Verified Date/ Time: 12/12/2018 14:09:05 Reading Location: [address] Consult Reading Room RAD, CHEST, 1 VIEW, NON [id number] 14:06:00Reason for exam:->hypoxiaShould this be performed at [...] Jenkins Verified Date/Time: 12/12/2018 14:06:55 Reading Location: [facility] Consult Reading Room POCT-GLUCOSE [id number] 12:31:00 Test Item Value Reference Range Comments POC-GLUCOSE METER (BEAKER) 194 mg/dL 70-110 TESTED AT [facility] [address] [facility] (test ycii=7569) [facility] [address] POCT-GLUCOSE [id number] 07:44:00 Test Item Value Reference Range Comments POC-GLUCOSE METER (BEAKER) 116 mg/dL 70-110 TESTED AT [facility] [address] [facility] (test yssv=7224) [facility] [address] [id number] 06:16:00 Test Item Value Reference Range Comments PHOSPHORUS (BEAKER) (test esiy=346) 2.8 mg/dL 2.3-4.7 [id number] 06:16:00 Test Item Value Reference Range Comments MAGNESIUM (BEAKER) (test rxzf=686) 1.9 mg/dL 1.6-2.6 BASIC METABOLIC [id number] 06:16:00 Test Item Value Reference Range Comments SODIUM (BEAKER) (test 140 meq/L 136-145 umyd=470) POTASSIUM (BEAKER) (test 3.8 meq/L 3.5-5.1 wpso=970) CHLORIDE (BEAKER) (test 106 meq/L 98-107 nqax=202) CO2 (BEAKER) (test 29 meq/L 22-29 kcto=331) BLOOD UREA NITROGEN 16 mg/dL 7-21 (BEAKER) (test kgyb=502) CREATININE (BEAKER) (test 0.73 mg/dL 0.57-1.25 lkdf=820) GLUCOSE RANDOM (BEAKER) 101 mg/dL 70-105 (test mcyb=573) CALCIUM (BEAKER) (test 8.8 mg/dL 8.4-10.2 tdoh=011) EGFR (BEAKER) (test 81 mL/min/1.73 sq m ESTIMATED GFR IS NOT tska=1901) ACCURATE CREATININE CLEARANCE IN PREDICTING GLOMERULAR FILTRATION RATE. ESTIMATED GFR IS NOT APPLICABLE FOR DIALYSIS PATIENTS. Specimen slightly ictericHEPATIC FUNCTION [id number] 06:16:00 Test Item Value Reference Range Comments TOTAL PROTEIN (BEAKER) (test zrln=325) 5.5 gm/dL 6.0-8.3 ALBUMIN (BEAKER) (test dvsv=8007) 3.6 g/dL 3.5-5.0 BILIRUBIN TOTAL (BEAKER) (test bvaj=255) 2.1 mg/dL 0.2-1.2 BILIRUBIN DIRECT (BEAKER) (test mcbj=891) 1.0 mg/dL 0.1-0.5 ALKALINE PHOSPHATASE (BEAKER) (test aotg=482) 52 U/L 40-150 AST (SGOT) (BEAKER) (test qddq=702) 39 U/L 5-34 ALT (SGPT) (BEAKER) (test umiq=246) 70 U/L 6-55 Specimen slightly ictericPT/[id number] 05:33:00 Test Item Value Reference Range Comments PROTIME (BEAKER) (test tqad=008) 19.9 seconds 11.9-14.2 INR (BEAKER) (test ceki=489) 1.8 <=5.9 PARTIAL THROMBOPLASTIN TIME (BEAKER) (test 38.2 seconds 22.5-36.0 eoxz=636) Effective 10/24/2018: PT Reference Range ChangeNew: 11.9-14.2 Previous: 11.7- 14.7RECOMMENDED COUMADIN/WARFARIN INR THERAPY RANGESSTANDARD DOSE: 2.0-3.0 Includes: PROPHYLAXIS for venous thrombosis, systemic embolization; TREATMENT for venous thrombosis and/or pulmonary embolus.HIGH RISK: Target INR is2.5-3.5 for patients wiht mechanical heart valves.CBC W/PLT COUNT & AUTO [id number] 05:21:00 Test Item Value Reference Range Comments WHITE BLOOD CELL COUNT (BEAKER) (test iwvl=363) 8.7 K/ L 3.5-10.5 RED BLOOD CELL COUNT (BEAKER) (test thce=324) 2.44 M/ L 3.93-5.22 HEMOGLOBIN (BEAKER) (test qhom=237) 7.5 GM/DL 11.2-15.7 HEMATOCRIT (BEAKER) (test qvhj=975) 24.5 % 34.1-44.9 MEAN CORPUSCULAR VOLUME (BEAKER) (test mtkj=730) 100.4 fL 79.4-94.8 MEAN CORPUSCULAR HEMOGLOBIN (BEAKER) (test 30.7 pg 25.6-32.2 mtkx=727) MEAN CORPUSCULAR HEMOGLOBIN CONC (BEAKER) (test 30.6 GM/DL 32.2-35.5 rgsy=900) RED CELL DISTRIBUTION WIDTH (BEAKER) (test 21.3 % 11.7-14.4 iuku=648) PLATELET COUNT (BEAKER) (test hxei=819) 83 K/CU MM 150-450 MEAN PLATELET VOLUME (BEAKER) (test qnvp=976) 11.5 fL 9.4-12.3 NUCLEATED RED BLOOD CELLS (BEAKER) (test 0 /100 WBC 0-0 lkzy=824) NEUTROPHILS RELATIVE PERCENT (BEAKER) (test 52 % ddls=803) LYMPHOCYTES RELATIVE PERCENT (BEAKER) (test 27 % rsum=252) MONOCYTES RELATIVE PERCENT (BEAKER) (test 16 % wluq=501) EOSINOPHILS RELATIVE PERCENT (BEAKER) (test 4 % zkmt=285) BASOPHILS RELATIVE PERCENT (BEAKER) (test 1 % oyxh=319) NEUTROPHILS ABSOLUTE COUNT (BEAKER) (test 4.49 K/ L 1.56-6.13 bvvk=627) LYMPHOCYTES ABSOLUTE COUNT (BEAKER) (test 2.36 K/ L 1.18-3.74 daos=785) MONOCYTES ABSOLUTE COUNT (BEAKER) (test betm=913) 1.41 K/ L 0.24-0.36 EOSINOPHILS ABSOLUTE COUNT (BEAKER) (test 0.34 K/ L 0.04-0.36 ovua=666) BASOPHILS ABSOLUTE COUNT (BEAKER) (test zbrz=355) 0.05 K/ L 0.01-0.08 IMMATURE GRANULOCYTES-RELATIVE PERCENT (BEAKER) 1 % 0-1 (test xtrv=8196) POCT-GLUCOSE [id number] 00:10:00 Test Item Value Reference Range Comments POC-GLUCOSE METER (BEAKER) 127 mg/dL 70-110 TESTED AT [address] (test pnlu=3503) [facility] [id number] POCT-GLUCOSE [id number] 17:40:00 Test Item Value Reference Range Comments POC-GLUCOSE METER (BEAKER) 165 mg/dL 70-110 TESTED AT [address] (test qzho=9036) [facility] [id number] POCT-GLUCOSE [id number] 12:35:00 Test Item Value Reference Range Comments POC-GLUCOSE METER (BEAKER) 190 mg/dL 70-110 TESTED AT [address] (test aqmm=9643) [facility] [id number] POCT-GLUCOSE [id number] 08:29:00 Test Item Value Reference Range Comments POC-GLUCOSE METER (BEAKER) 173 mg/dL 70-110 TESTED AT [facility] [address] [facility] (test msln=5752) [facility] [address] CBC W/PLT COUNT & AUTO [id number] 05:21:00 Test Item Value Reference Range Comments WHITE BLOOD CELL COUNT (BEAKER) (test ydcq=418) 9.4 K/ L 3.5-10.5 RED BLOOD CELL COUNT (BEAKER) (test jzrm=933) 2.86 M/ L 3.93-5.22 HEMOGLOBIN (BEAKER) (test jnqu=674) 8.9 GM/DL 11.2-15.7 HEMATOCRIT (BEAKER) (test njog=886) 28.9 % 34.1-44.9 MEAN CORPUSCULAR VOLUME (BEAKER) (test dnoq=085) 101.0 fL 79.4-94.8 MEAN CORPUSCULAR HEMOGLOBIN (BEAKER) (test 31.1 pg 25.6-32.2 enyp=608) MEAN CORPUSCULAR HEMOGLOBIN CONC (BEAKER) (test 30.8 GM/DL 32.2-35.5 hges=682) RED CELL DISTRIBUTION WIDTH (BEAKER) (test 21.9 % 11.7-14.4 jqkq=207) PLATELET COUNT (BEAKER) (test pwkh=216) 118 K/CU MM 150-450 MEAN PLATELET VOLUME (BEAKER) (test jciq=396) 11.2 fL 9.4-12.3 NUCLEATED RED BLOOD CELLS (BEAKER) (test 1 /100 WBC 0-0 zxit=275) NEUTROPHILS RELATIVE PERCENT (BEAKER) (test 55 % luga=455) LYMPHOCYTES RELATIVE PERCENT (BEAKER) (test 24 % snjl=798) MONOCYTES RELATIVE PERCENT (BEAKER) (test 16 % stnn=311) EOSINOPHILS RELATIVE PERCENT (BEAKER) (test 3 % nloi=020) BASOPHILS RELATIVE PERCENT (BEAKER) (test 1 % lpxn=029) NEUTROPHILS ABSOLUTE COUNT (BEAKER) (test 5.22 K/ L 1.56-6.13 lcyu=146) LYMPHOCYTES ABSOLUTE COUNT (BEAKER) (test 2.30 K/ L 1.18-3.74 isan=684) MONOCYTES ABSOLUTE COUNT (BEAKER) (test 1.50 K/ L 0.24-0.36 cial=555) EOSINOPHILS ABSOLUTE COUNT (BEAKER) (test 0.30 K/ L 0.04-0.36 jipc=511) BASOPHILS ABSOLUTE COUNT (BEAKER) (test 0.07 K/ L 0.01-0.08 hzgt=965) IMMATURE GRANULOCYTES-RELATIVE PERCENT (BEAKER) 1 % 0-1 (test qhjw=3348) [id number] 05:18:00 Test Item Value Reference Range Comments PHOSPHORUS (BEAKER) (test vagl=010) 2.1 mg/dL 2.3-4.7 [id number] 05:18:00 Test Item Value Reference Range Comments MAGNESIUM (BEAKER) (test xiom=154) 2.2 mg/dL 1.6-2.6 BASIC METABOLIC [id number] 05:18:00 Test Item Value Reference Range Comments SODIUM (BEAKER) (test 143 meq/L 136-145 tmyy=066) POTASSIUM (BEAKER) (test 3.8 meq/L 3.5-5.1 zhcf=721) CHLORIDE (BEAKER) (test 110 meq/L 98-107 jbok=855) CO2 (BEAKER) (test 27 meq/L 22-29 hbxs=899) BLOOD UREA NITROGEN 19 mg/dL 7-21 (BEAKER) (test gibe=674) CREATININE (BEAKER) (test 0.75 mg/dL 0.57-1.25 nmbb=744) GLUCOSE RANDOM (BEAKER) 118 mg/dL 70-105 (test xmui=295) CALCIUM (BEAKER) (test 8.8 mg/dL 8.4-10.2 uodq=442) EGFR (BEAKER) (test 79 mL/min/1.73 sq m ESTIMATED GFR IS NOT mlpi=7659) ACCURATE CREATININE CLEARANCE IN PREDICTING GLOMERULAR FILTRATION RATE. ESTIMATED GFR IS NOT APPLICABLE FOR DIALYSIS PATIENTS. HEPATIC FUNCTION [id number] 05:18:00 Test Item Value Reference Range Comments TOTAL PROTEIN (BEAKER) (test wpow=185) 5.6 gm/dL 6.0-8.3 ALBUMIN (BEAKER) (test obzf=2743) 3.3 g/dL 3.5-5.0 BILIRUBIN TOTAL (BEAKER) (test szxt=951) 1.8 mg/dL 0.2-1.2 BILIRUBIN DIRECT (BEAKER) (test zbjl=724) 0.9 mg/dL 0.1-0.5 ALKALINE PHOSPHATASE (BEAKER) (test dgxg=294) 69 U/L 40-150 AST (SGOT) (BEAKER) (test afwt=340) 51 U/L 5-34 ALT (SGPT) (BEAKER) (test rien=300) 110 U/L 6-55 [id number] 05:05:00 Test Item Value Reference Range Comments PROTIME (BEAKER) (test imdh=511) 19.4 seconds 11.9-14.2 INR (BEAKER) (test sjcx=782) 1.7 <=5.9 PARTIAL THROMBOPLASTIN TIME (BEAKER) (test 35.9 seconds 22.5-36.0 rgwb=134) Effective 10/24/2018: PT Reference Range ChangeNew: 11.9-14.2 Previous: 11.7- 14.7RECOMMENDED COUMADIN/WARFARIN INR THERAPY RANGESSTANDARD DOSE: 2.0-3.0 Includes: PROPHYLAXIS for venous thrombosis, systemic embolization; TREATMENT for venous thrombosis and/or pulmonary embolus.HIGH RISK: Target INR is2.5-3.5 for patients wiht mechanical heart valves.[id number] 05:05:00 Test Item Value Reference Range Comments FIBRINOGEN LEVEL (BEAKER) (test ledy=972) 184 mg/dl 225-434 LACTIC ACID, [id number] 05:02:00 Test Item Value Reference Range Comments LACTATE BLOOD VENOUS (2) (BEAKER) (test 1.8 mmol/L 0.5-2.2 nenw=8225) POCT-GLUCOSE [id number] 22:06:00 Test Item Value Reference Range Comments POC-GLUCOSE METER (BEAKER) 295 mg/dL 70-110 TESTED AT [address] (test zfsa=0389) [facility] [address] POCT-GLUCOSE [id number] 18:38:00 Test Item Value Reference Range Comments POC-GLUCOSE METER (BEAKER) 181 mg/dL 70-110 TESTED AT [address] (test zhgn=9887) [facility] [address] BLOOD [id number] 16:53:00 Test Item Value Reference Range Comments CULTURE (BEAKER) From Anaerobic Bottle Only (test eofz=8978) Coagulase negative Staphylococcus GRAM STAIN RESULT From anaerobic bottle (BEAKER) (test only: gram positive jzyx=4811) cocci in clusters POCT-GLUCOSE [id number] 13:01:00 Test Item Value Reference Range Comments POC-GLUCOSE METER (BEAKER) 143 mg/dL 70-110 TESTED AT [facility] [address] (test yphu=6134) [facility] [address] RAD, ABDOMEN/KUB, 1 VIEW [id number] 08:18:00Reason for exam:->ileusFINAL REPORT INDICATION:Ileus. COMPARISON: December [...] MDReport Verified Date/Time: 12/10/2018 08:18:25 Reading Location: [facility] Diagnostic Imaging Reading Room - [place] [id number] CBC W/PLT COUNT & AUTO [id number] 07:36:00 Test Item Value Reference Range Comments WHITE BLOOD CELL COUNT (BEAKER) (test skeo=348) 10.7 K/ L 3.5-10.5 RED BLOOD CELL COUNT (BEAKER) (test ltsl=102) 2.84 M/ L 3.93-5.22 HEMOGLOBIN (BEAKER) (test qlnf=090) 8.7 GM/DL 11.2-15.7 HEMATOCRIT (BEAKER) (test wpem=044) 28.5 % 34.1-44.9 MEAN CORPUSCULAR VOLUME (BEAKER) (test ivul=908) 100.4 fL 79.4-94.8 MEAN CORPUSCULAR HEMOGLOBIN (BEAKER) (test 30.6 pg 25.6-32.2 smhr=901) MEAN CORPUSCULAR HEMOGLOBIN CONC (BEAKER) (test 30.5 GM/DL 32.2-35.5 xzqq=669) RED CELL DISTRIBUTION WIDTH (BEAKER) (test 22.5 % 11.7-14.4 mstn=465) PLATELET COUNT (BEAKER) (test aqvf=198) 120 K/CU MM 150-450 MEAN PLATELET VOLUME (BEAKER) (test ihpe=024) 11.5 fL 9.4-12.3 NUCLEATED RED BLOOD CELLS (BEAKER) (test 1 /100 WBC 0-0 virz=739) (CELLAVISION MANUAL DIFF)2018-12-10 07:36:00 Test Item Value Reference Range Comments NEUTROPHILS - REL (CELLAVISION)(BEAKER) (test 81 % kfcl=8087) LYMPHOCYTES - REL (CELLAVISION)(BEAKER) (test 9 % uvtv=1678) MONOCYTES - REL (CELLAVISION)(BEAKER) (test 8 % tngi=7255) EOSINOPHILS - REL (CELLAVISION)(BEAKER) (test 1 % smhj=9878) BASOPHILS - REL (CELLAVISION)(BEAKER) (test 1 % nqzx=1847) NEUTROPHILS - ABS (CELLAVISION)(BEAKER) (test 8.67 K/ul 1.56-6.13 imum=2850) LYMPHOCYTES - ABS (CELLAVISION)(BEAKER) (test 0.96 K/ul 1.18-3.74 calz=1345) MONOCYTES - ABS (CELLAVISION)(BEAKER) (test 0.86 K/uL 0.24-0.36 tucn=5592) EOSINOPHILS - ABS (CELLAVISION)(BEAKER) (test 0.11 K/uL 0.04-0.36 bvwl=6162) BASOPHILS - ABS (CELLAVISION)(BEAKER) (test 0.11 K/uL 0.01-0.08 rgdn=4331) TOTAL COUNTED (BEAKER) (test ygtb=8321) 100 MANUAL NRBC PER 100 CELLS (BEAKER) (test 1 /100 WBC 0-0 cays=2294) WBC MORPHOLOGY (BEAKER) (test nevu=179) Normal PLT MORPHOLOGY (BEAKER) (test oazb=688) Normal POLYCHROMATOPHILLIC RBCS(BEAKER) (test jujj=222) 2+ moderate HYPOCHROMIA (BEAKER) (test sxrz=465) 1+ few ARTIFACT (CELLAVISION)(BEAKER) (test pslw=1549) Present PLATELET CONCENTRATION (CELLAVISION)(BEAKER) Decreased (test wodo=9410) Received comment: User comments: Slide comments:[id number] 05:18:00 Test Item Value Reference Range Comments PHOSPHORUS (BEAKER) (test oirq=583) 2.5 mg/dL 2.3-4.7 [id number] 05:18:00 Test Item Value Reference Range Comments MAGNESIUM (BEAKER) (test spbt=732) 2.2 mg/dL 1.6-2.6 BASIC METABOLIC [id number] 05:18:00 Test Item Value Reference Range Comments SODIUM (BEAKER) (test 146 meq/L 136-145 ydrc=338) POTASSIUM (BEAKER) (test 3.9 meq/L 3.5-5.1 itzq=704) CHLORIDE (BEAKER) (test 113 meq/L 98-107 aqud=596) CO2 (BEAKER) (test 26 meq/L 22-29 wszh=076) BLOOD UREA NITROGEN 19 mg/dL 7-21 (BEAKER) (test qdui=704) CREATININE (BEAKER) (test 0.68 mg/dL 0.57-1.25 zghn=902) GLUCOSE RANDOM (BEAKER) 119 mg/dL 70-105 (test cqsp=397) CALCIUM (BEAKER) (test 8.4 mg/dL 8.4-10.2 fvbl=429) EGFR (BEAKER) (test 88 mL/min/1.73 sq m ESTIMATED GFR IS NOT zuig=7159) ACCURATE CREATININE CLEARANCE IN PREDICTING GLOMERULAR FILTRATION RATE. ESTIMATED GFR IS NOT APPLICABLE FOR DIALYSIS PATIENTS. HEPATIC FUNCTION [id number] 05:18:00 Test Item Value Reference Range Comments TOTAL PROTEIN (BEAKER) (test tels=031) 5.5 gm/dL 6.0-8.3 ALBUMIN (BEAKER) (test smes=1841) 3.3 g/dL 3.5-5.0 BILIRUBIN TOTAL (BEAKER) (test hxpm=410) 2.0 mg/dL 0.2-1.2 BILIRUBIN DIRECT (BEAKER) (test time=427) 1.0 mg/dL 0.1-0.5 ALKALINE PHOSPHATASE (BEAKER) (test mfqm=659) 65 U/L 40-150 AST (SGOT) (BEAKER) (test kcde=394) 52 U/L 5-34 ALT (SGPT) (BEAKER) (test ukse=519) 136 U/L 6-55 LACTIC ACID, [id number] 05:00:00 Test Item Value Reference Range Comments LACTATE BLOOD VENOUS (2) (BEAKER) (test 2.0 mmol/L 0.5-2.2 rfbd=8700) [id number] 04:39:00 Test Item Value Reference Range Comments FIBRINOGEN LEVEL (BEAKER) (test adyz=000) 221 mg/dl 225-434 [id number] 04:39:00 Test Item Value Reference Range Comments PROTIME (BEAKER) (test kymt=912) 17.5 seconds 11.9-14.2 INR (BEAKER) (test fxum=539) 1.5 <=5.9 PARTIAL THROMBOPLASTIN TIME (BEAKER) (test 37.8 seconds 22.5-36.0 qjyj=396) Effective 10/24/2018: PT Reference Range ChangeNew: 11.9-14.2 Previous: 11.7- 14.7RECOMMENDED COUMADIN/WARFARIN INR THERAPY RANGESSTANDARD DOSE: 2.0-3.0 Includes: PROPHYLAXIS for venous thrombosis, systemic embolization; TREATMENT for venous thrombosis and/or pulmonary embolus.HIGH RISK: Target INR is2.5-3.5 for patients wiht mechanical heart valves.U/S, ABDOMINAL, [id number] 01: 07:00Reason for exam:->ASCITES EVAL Should this [...] FLOR WILLIS MD on12/10/2018 01:07 AMPOCT- GLUCOSE [id number] 00:25:00 Test Item Value Reference Range Comments POC-GLUCOSE METER (BEAKER) 134 mg/dL 70-110 TESTED AT [address] (test dxwj=6399) [place] [address] BLOOD [id number] 20:01:00 Test Item Value Reference Range Comments CULTURE (BEAKER) (test icgo=2634) No growth in 5 days HEMOGLOBIN AND [id number] 17:57:00 Test Item Value Reference Range Comments HEMOGLOBIN (BEAKER) (test zkhy=970) 8.8 GM/DL 11.2-15.7 HEMATOCRIT (BEAKER) (test stmp=891) 28.2 % 34.1-44.9 POCT-GLUCOSE [id number] 17:57:00 Test Item Value Reference Range Comments POC-GLUCOSE METER (BEAKER) 175 mg/dL 70-110 TESTED AT [address] (test ftrc=2603) [place] [address] POCT-GLUCOSE [id number] 13:23:00 Test Item Value Reference Range Comments POC-GLUCOSE METER (BEAKER) 110 mg/dL 70-110 TESTED AT [address] (test njme=3807) [place] [address] CBC W/PLT COUNT & AUTO [id number] 09:54:00 Test Item Value Reference Range Comments WHITE BLOOD CELL COUNT (BEAKER) (test onfm=183) 9.9 K/ L 3.5-10.5 RED BLOOD CELL COUNT (BEAKER) (test fnez=405) 2.64 M/ L 3.93-5.22 HEMOGLOBIN (BEAKER) (test rqps=722) 8.3 GM/DL 11.2-15.7 HEMATOCRIT (BEAKER) (test smng=624) 26.2 % 34.1-44.9 MEAN CORPUSCULAR VOLUME (BEAKER) (test tyfo=248) 99.2 fL 79.4-94.8 MEAN CORPUSCULAR HEMOGLOBIN (BEAKER) (test 31.4 pg 25.6-32.2 ommu=917) MEAN CORPUSCULAR HEMOGLOBIN CONC (BEAKER) (test 31.7 GM/DL 32.2-35.5 xcpf=434) RED CELL DISTRIBUTION WIDTH (BEAKER) (test 22.9 % 11.7-14.4 niio=270) PLATELET COUNT (BEAKER) (test bmoq=183) 118 K/CU MM 150-450 MEAN PLATELET VOLUME (BEAKER) (test ykmk=353) 11.5 fL 9.4-12.3 NUCLEATED RED BLOOD CELLS (BEAKER) (test 1 /100 WBC 0-0 eluq=847) (CELLAVISION MANUAL DIFF)2018-12-09 09:54:00 Test Item Value Reference Range Comments NEUTROPHILS - REL (CELLAVISION)(BEAKER) (test 76 % huoc=4512) LYMPHOCYTES - REL (CELLAVISION)(BEAKER) (test 11 % xwps=7955) MONOCYTES - REL (CELLAVISION)(BEAKER) (test 10 % xxqg=3813) EOSINOPHILS - REL (CELLAVISION)(BEAKER) (test 2 % yffd=9962) BASOPHILS - REL (CELLAVISION)(BEAKER) (test 1 % txsq=7081) NEUTROPHILS - ABS (CELLAVISION)(BEAKER) (test 7.52 K/ul 1.56-6.13 sjmv=0727) LYMPHOCYTES - ABS (CELLAVISION)(BEAKER) (test 1.09 K/ul 1.18-3.74 fanh=7441) MONOCYTES - ABS (CELLAVISION)(BEAKER) (test 0.99 K/uL 0.24-0.36 rrue=2367) EOSINOPHILS - ABS (CELLAVISION)(BEAKER) (test 0.20 K/uL 0.04-0.36 cjom=6809) BASOPHILS - ABS (CELLAVISION)(BEAKER) (test 0.10 K/uL 0.01-0.08 bawn=7104) TOTAL COUNTED (BEAKER) (test ehix=8918) 100 MANUAL NRBC PER 100 CELLS (BEAKER) (test 1 /100 WBC 0-0 cgkf=2797) WBC MORPHOLOGY (BEAKER) (test pbiv=720) Normal PLT MORPHOLOGY (BEAKER) (test rnee=214) Normal POLYCHROMATOPHILLIC RBCS(BEAKER) (test sqeo=976) 1+ few ANISOCYTOSIS (BEAKER) (test ibro=044) 1+ few MACROCYTES (BEAKER) (test yzym=585) 1+ few POIKILOCYTES (BEAKER) (test uckp=635) 2+ moderate ARTIFACT (CELLAVISION)(BEAKER) (test fzbq=4292) Present PLATELET CONCENTRATION (CELLAVISION)(BEAKER) Decreased (test nsgq=5423) Received comment: User comments: Slide comments:RAD, ABDOMEN/KUB, 1 VIEW [id number] 07:43:00Reason for exam:->ileusFINAL REPORT ONE VIEW ABDOMEN [...] Verified Date/Time: 12/09/2018 07:43:19 Reading Location : [address] Reading Room POCT-GLUCOSE [id number] 05:30:00 Test Item Value Reference Range Comments POC-GLUCOSE METER (BEAKER) 112 mg/dL 70-110 TESTED AT [facility] [address] [facility] (test kflk=6842) [facility] [address] [id number] 05:09:00 Test Item Value Reference Range Comments MAGNESIUM (BEAKER) (test 2.1 mg/dL 1.6-2.6 Specimen slightly hemolyzed ajby=941) [id number] 05:09:00 Test Item Value Reference Range Comments PHOSPHORUS (BEAKER) (test 2.2 mg/dL 2.3-4.7 Specimen slightly hemolyzed dfmk=950) BASIC METABOLIC [id number] 05:09:00 Test Item Value Reference Range Comments SODIUM (BEAKER) (test 140 meq/L 136-145 lfxp=407) POTASSIUM (BEAKER) (test 4.1 meq/L 3.5-5.1 Specimen slightly aqcw=060) hemolyzed CHLORIDE (BEAKER) (test 108 meq/L 98-107 jxgm=071) CO2 (BEAKER) (test 24 meq/L 22-29 qasj=319) BLOOD UREA NITROGEN 18 mg/dL 7-21 (BEAKER) (test wknm=834) CREATININE (BEAKER) (test 0.65 mg/dL 0.57-1.25 Specimen slightly flew=178) hemolyzed GLUCOSE RANDOM (BEAKER) 124 mg/dL 70-105 (test udlh=589) CALCIUM (BEAKER) (test 8.1 mg/dL 8.4-10.2 zwjh=827) EGFR (BEAKER) (test 93 mL/min/1.73 sq m ESTIMATED GFR IS NOT xhfv=6828) ACCURATE CREATININE CLEARANCE IN PREDICTING GLOMERULAR FILTRATION RATE. ESTIMATED GFR IS NOT APPLICABLE FOR DIALYSIS PATIENTS. Specimen slightly ictericHEPATIC FUNCTION [id number] 05:09:00 Test Item Value Reference Range Comments TOTAL PROTEIN (BEAKER) (test 5.4 gm/dL 6.0-8.3 Specimen slightly hemolyzed ompw=860) ALBUMIN (BEAKER) (test 3.2 g/dL 3.5-5.0 Specimen slightly hemolyzed fmkg=0413) BILIRUBIN TOTAL (BEAKER) (test 2.2 mg/dL 0.2-1.2 Specimen slightly hemolyzed iyes=132) BILIRUBIN DIRECT (BEAKER) (test 0.9 mg/dL 0.1-0.5 Specimen slightly hemolyzed uayt=947) ALKALINE PHOSPHATASE (BEAKER) 63 U/L 40-150 (test coxe=765) AST (SGOT) (BEAKER) (test 70 U/L 5-34 Specimen slightly hemolyzed omzu=859) ALT (SGPT) (BEAKER) (test 169 U/L 6-55 Specimen slightly hemolyzed ztpu=196) Specimen slightly ictericLACTIC ACID, [id number] 04:54:00 Test Item Value Reference Range Comments LACTATE BLOOD VENOUS (2) (BEAKER) (test 1.3 mmol/L 0.5-2.2 kvcb=0984) Specimen slightly ictericPT/[id number] 04:45:00 Test Item Value Reference Range Comments PROTIME (BEAKER) (test hjqu=004) 16.8 seconds 11.9-14.2 INR (BEAKER) (test xwyk=521) 1.4 <=5.9 PARTIAL THROMBOPLASTIN TIME (BEAKER) (test 29.5 seconds 22.5-36.0 cejo=287) Effective 10/24/2018: PT Reference Range ChangeNew: 11.9-14.2 Previous: 11.7- 14.7RECOMMENDED COUMADIN/WARFARIN INR THERAPY RANGESSTANDARD DOSE: 2.0-3.0 Includes: PROPHYLAXIS for venous thrombosis, systemic embolization; TREATMENT for venous thrombosis and/or pulmonary embolus.HIGH RISK: Target INR is2.5-3.5 for patients wiht mechanical heart valves.[id number] 04:45:00 Test Item Value Reference Range Comments FIBRINOGEN LEVEL (BEAKER) (test ulwm=377) 212 mg/dl 225-434 POCT-GLUCOSE [id number] 23:51:00 Test Item Value Reference Range Comments POC-GLUCOSE METER (BEAKER) 127 mg/dL 70-110 TESTED AT [facility] [address] [facility] (test ozfw=9896) [facility] [address] [id number] 18:46:00 Test Item Value Reference Range Comments PHOSPHORUS (BEAKER) (test hvbv=191) 2.8 mg/dL 2.3-4.7 [id number] 18:46:00 Test Item Value Reference Range Comments MAGNESIUM (BEAKER) (test qils=091) 2.3 mg/dL 1.6-2.6 BASIC METABOLIC [id number] 18:46:00 Test Item Value Reference Range Comments SODIUM (BEAKER) (test 139 meq/L 136-145 vuwo=012) POTASSIUM (BEAKER) (test 4.0 meq/L 3.5-5.1 qnrg=367) CHLORIDE (BEAKER) (test 107 meq/L 98-107 erns=287) CO2 (BEAKER) (test 24 meq/L 22-29 ebgh=286) BLOOD UREA NITROGEN 19 mg/dL 7-21 (BEAKER) (test lbzt=175) CREATININE (BEAKER) (test 0.68 mg/dL 0.57-1.25 oszo=393) GLUCOSE RANDOM (BEAKER) 114 mg/dL 70-105 (test hbbx=384) CALCIUM (BEAKER) (test 8.2 mg/dL 8.4-10.2 grbs=830) EGFR (BEAKER) (test 88 mL/min/1.73 sq m ESTIMATED GFR IS NOT edjc=2834) ACCURATE CREATININE CLEARANCE IN PREDICTING GLOMERULAR FILTRATION RATE. ESTIMATED GFR IS NOT APPLICABLE FOR DIALYSIS PATIENTS. Specimen slightly ictericPOCT-GLUCOSE [id number] 17:54:00 Test Item Value Reference Range Comments POC-GLUCOSE METER (BEAKER) 93 mg/dL 70-110 TESTED AT [address] (test iukc=2042) [place] [address] LACTIC ACID, [id number] 12:49:00 Test Item Value Reference Range Comments LACTATE BLOOD VENOUS (2) (BEAKER) (test 1.9 mmol/L 0.5-2.2 odxm=9016) Specimen slightly ictericPOCT-GLUCOSE [id number] 12:09:00 Test Item Value Reference Range Comments POC-GLUCOSE METER (BEAKER) 142 mg/dL 70-110 TESTED AT [address] (test wfsy=1638) [place] [address] RAD, ABDOMEN/KUB, 1 VIEW [id number] 08:31:00Reason for exam:->ileusShould this be performed at [...] MDReport Verified Date/Time: 12/08/2018 08:31:46 Reading Location: [facility] C013Y CT Body Reading Room [id number] 08:02:00 Test Item Value Reference Range Comments PHOSPHORUS (BEAKER) (test iczo=001) 1.7 mg/dL 2.3-4.7 POCT-GLUCOSE [id number] 05:40:00 Test Item Value Reference Range Comments POC-GLUCOSE METER (BEAKER) 128 mg/dL 70-110 TESTED AT [address] (test tshn=2245) [place] [address] [id number] 05:14:00 Test Item Value Reference Range Comments MAGNESIUM (BEAKER) (test qoab=194) 2.2 mg/dL 1.6-2.6 BASIC METABOLIC [id number] 05:14:00 Test Item Value Reference Range Comments SODIUM (BEAKER) (test 141 meq/L 136-145 msmx=441) POTASSIUM (BEAKER) (test 4.0 meq/L 3.5-5.1 gfbd=229) CHLORIDE (BEAKER) (test 109 meq/L 98-107 fbdr=998) CO2 (BEAKER) (test 25 meq/L 22-29 aiyc=454) BLOOD UREA NITROGEN 21 mg/dL 7-21 (BEAKER) (test guox=486) CREATININE (BEAKER) (test 0.66 mg/dL 0.57-1.25 eimp=371) GLUCOSE RANDOM (BEAKER) 118 mg/dL 70-105 (test tftk=599) CALCIUM (BEAKER) (test 8.3 mg/dL 8.4-10.2 epmd=666) EGFR (BEAKER) (test 91 mL/min/1.73 sq m ESTIMATED GFR IS NOT njja=2989) ACCURATE CREATININE CLEARANCE IN PREDICTING GLOMERULAR FILTRATION RATE. ESTIMATED GFR IS NOT APPLICABLE FOR DIALYSIS PATIENTS. Specimen slightly ictericHEPATIC FUNCTION [id number] 05:14:00 Test Item Value Reference Range Comments TOTAL PROTEIN (BEAKER) (test xkxt=458) 5.4 gm/dL 6.0-8.3 ALBUMIN (BEAKER) (test xsuq=9954) 3.4 g/dL 3.5-5.0 BILIRUBIN TOTAL (BEAKER) (test dupt=371) 2.4 mg/dL 0.2-1.2 BILIRUBIN DIRECT (BEAKER) (test tafm=481) 1.0 mg/dL 0.1-0.5 ALKALINE PHOSPHATASE (BEAKER) (test fgsh=868) 65 U/L 40-150 AST (SGOT) (BEAKER) (test awrp=075) 94 U/L 5-34 ALT (SGPT) (BEAKER) (test eiin=214) 229 U/L 6-55 Specimen slightly [id number] 05:09:00 Test Item Value Reference Range Comments FIBRINOGEN LEVEL (BEAKER) (test dvct=383) 223 mg/dl 225-434 [id number] 05:09:00 Test Item Value Reference Range Comments PROTIME (BEAKER) (test ouow=406) 16.4 seconds 11.9-14.2 INR (BEAKER) (test kplq=508) 1.4 <=5.9 PARTIAL THROMBOPLASTIN TIME (BEAKER) (test 32.1 seconds 22.5-36.0 phtd=342) Effective 10/24/2018: PT Reference Range ChangeNew: 11.9-14.2 Previous: 11.7- 14.7RECOMMENDED COUMADIN/WARFARIN INR THERAPY RANGESSTANDARD DOSE: 2.0-3.0 Includes: PROPHYLAXIS for venous thrombosis, systemic embolization; TREATMENT for venous thrombosis and/or pulmonary embolus.HIGH RISK: Target INR is2.5-3.5 for patients wiht mechanical heart valves.CBC W/PLT COUNT & AUTO [id number] 04:41:00 Test Item Value Reference Range Comments WHITE BLOOD CELL COUNT (BEAKER) (test tiwc=536) 10.2 K/ L 3.5-10.5 RED BLOOD CELL COUNT (BEAKER) (test qmqw=055) 2.63 M/ L 3.93-5.22 HEMOGLOBIN (BEAKER) (test vrne=189) 8.3 GM/DL 11.2-15.7 HEMATOCRIT (BEAKER) (test rzdq=207) 26.1 % 34.1-44.9 MEAN CORPUSCULAR VOLUME (BEAKER) (test ejdj=590) 99.2 fL 79.4-94.8 MEAN CORPUSCULAR HEMOGLOBIN (BEAKER) (test 31.6 pg 25.6-32.2 lqld=042) MEAN CORPUSCULAR HEMOGLOBIN CONC (BEAKER) (test 31.8 GM/DL 32.2-35.5 wwez=032) RED CELL DISTRIBUTION WIDTH (BEAKER) (test 23.0 % 11.7-14.4 pudt=776) PLATELET COUNT (BEAKER) (test awwh=045) 106 K/CU MM 150-450 MEAN PLATELET VOLUME (BEAKER) (test mzxi=447) 11.6 fL 9.4-12.3 NUCLEATED RED BLOOD CELLS (BEAKER) (test 2 /100 WBC 0-0 fjbn=562) NEUTROPHILS RELATIVE PERCENT (BEAKER) (test 53 % umxh=515) LYMPHOCYTES RELATIVE PERCENT (BEAKER) (test 26 % powb=498) MONOCYTES RELATIVE PERCENT (BEAKER) (test 17 % wqpi=517) EOSINOPHILS RELATIVE PERCENT (BEAKER) (test 2 % nbrb=607) BASOPHILS RELATIVE PERCENT (BEAKER) (test 0 % xycf=178) NEUTROPHILS ABSOLUTE COUNT (BEAKER) (test 5.44 K/ L 1.56-6.13 nbat=563) LYMPHOCYTES ABSOLUTE COUNT (BEAKER) (test 2.68 K/ L 1.18-3.74 azqc=509) MONOCYTES ABSOLUTE COUNT (BEAKER) (test 1.78 K/ L 0.24-0.36 ptil=921) EOSINOPHILS ABSOLUTE COUNT (BEAKER) (test 0.21 K/ L 0.04-0.36 ndsd=094) BASOPHILS ABSOLUTE COUNT (BEAKER) (test 0.03 K/ L 0.01-0.08 kkrr=765) IMMATURE GRANULOCYTES-RELATIVE PERCENT (BEAKER) 1 % 0-1 (test dtum=1785) HEMOGLOBIN AND [id number] 04:38:00 Test Item Value Reference Range Comments HEMOGLOBIN (BEAKER) (test pije=778) 8.3 GM/DL 11.2-15.7 HEMATOCRIT (BEAKER) (test nwsb=652) 26.1 % 34.1-44.9 POCT-GLUCOSE [id number] 00:02:00 Test Item Value Reference Range Comments POC-GLUCOSE METER (BEAKER) 125 mg/dL 70-110 TESTED AT [facility] [address] [place] [address] (test iiuo=5903) [facility] [address] [id number] 23:12:00 Test Item Value Reference Range Comments POTASSIUM (BEAKER) (test fxgv=538) 5.1 meq/L 3.5-5.1 [id number] 23:12:00 Test Item Value Reference Range Comments MAGNESIUM (BEAKER) (test eycz=328) 2.3 mg/dL 1.6-2.6 HEMOGLOBIN AND [id number] 22:46:00 Test Item Value Reference Range Comments HEMOGLOBIN (BEAKER) (test nndc=586) 7.8 GM/DL 11.2-15.7 HEMATOCRIT (BEAKER) (test qvgt=791) 23.9 % 34.1-44.9 BLOOD CULTURE IDENTIFICATION [id number] 20:39:00 Test Item Value Reference Range Comments LISTERIA MONOCYTOGENES (test Not detected Not detected lsor=8054767) STAPHYLOCOCCUS (test Detected Not detected Coagulase negative Staph xdrk=[id number]) species (CoNS)- methicillin susceptibleFirst-line therapy: Cefazolin or Oxacillin (Oxacillin preferred if WO[employer] R[employer]ER involvement) MecA NOT DETECTEDPossible contamination. The likelihood of pathogenicity is increased if the organism is observed in multiple blood cultures obtained from separate venipunctures.Reference Range: Not Detected STAPHYLOCOCCUS AUREUS (test Not detected Not detected pmwf=4297524) STREPTOCOCCUS (test Not detected Not detected yrzy=3005398) STREPTOCOCCUS AGALACTIAE Not detected Not detected (GROUP B) (test llyt=5740560) STREPTOCOCCUS PNEUMONIAE Not detected Not detected (test biwi=3597036) STREPTOCOCCUS PYOGENES (GROUP Not detected Not detected A) (test nlhi=0153927) ACINETOBACTER BAUMANNII (test Not detected Not detected pzii=6311583) HAEMOPHILUS INFLUENZAE (test Not detected Not detected ujko=1494549) NEISSERIA MENINGITIDIS (test Not detected Not detected yytp=7345755) ENTEROBACTERIACEAE (test Not detected Not detected cyce=7034246) ENTEROBACTER CLOACOE COMPLEX Not detected Not detected (test oorm=0999552) KLEBSIELLA OXYTOCA (test Not detected Not detected ypnv=7113953) KLEBSIELLA PNEUMONIAE (test Not detected Not detected eock=8774) PROTEUS (test elqb=0175252) Not detected Not detected SERRATIA MARCESCENS (test Not detected Not detected dsll=4288908) LINDA ALBICANS (test Not detected Not detected yyqf=6139157) LINDA GLABRATA (test Not detected Not detected nwxy=1784012) LINDA KRUSEI (test Not detected Not detected kcsb=7316201) LINDA PARAPSILOSIS (test Not detected Not detected clht=2188763) LINDA TROPICALIS (test Not detected Not detected naoz=3195848) ESCHERICHIA COLI (test Not detected Not detected gurg=5132560) METHICILLIN-RESISTANCE GENE Not detected Not detected (test ryqu=4408740) VANCOMYCIN-RESISTANCE GENE Not detected (test oavk=4848185) CARBAPENEM-RESISTANCE GENE Not detected (test hwiw=1379763) ENTEROCOCCUS-BEAKER (test Not detected Not detected mzqx=4403386) PSEUDOMONAS AERUGINOSA-BEAKER Not detected Not detected (test dels=4517297) Other bacteria and resistance markers not targeted by this PCR panel cannot be excluded; therefore clinical correlation and follow up of serology, culture results, and other molecular studies is required. The results are not intended to be used as the sole means for clinical diagnosis or patient management decisions. This sample was tested at the [facility] using the Green Clean FilmArray Blood Culture ID Panel. It is FDA cleared and has been verified and approved by the [facility] for clinical use. This laboratory is CLIA-certified and College ofAmerican Pathologists (CAP)-accredited to perform high complexity testing.POCT-GLUCOSE [id number] 18:12:00 Test Item Value Reference Range Comments POC-GLUCOSE METER (BEAKER) 146 mg/dL 70-110 TESTED AT [facility] [address] (test vzve=4697) [facility] [address] LACTIC ACID, [id number] 15:57:00 Test Item Value Reference Range Comments LACTATE BLOOD VENOUS (2) (BEAKER) (test 2.2 mmol/L 0.5-2.2 csnk=8541) Specimen slightly ictericHEMOGLOBIN AND [id number] 15:42:00 Test Item Value Reference Range Comments HEMOGLOBIN (BEAKER) (test zeip=994) 8.3 GM/DL 11.2-15.7 HEMATOCRIT (BEAKER) (test cnic=261) 25.0 % 34.1-44.9 RAD, ABDOMEN/KUB, 1 VIEW [id number] 15:11:00Reason for exam:->suspected ileusShould this be performed [...] Sterneport Verified Date/Time: 12/07/2018 15:11:34 Reading Location: [facility] Reading Room Electronically signed by: JULIA STERN MD on 2018 03:11 [id number] 12:18:00 Test Item Value Reference Range Comments PROCALCITONIN (BEAKER) (test vbav=8544) 0.09 ng/mL <0.05 SEPSIS RISK (ng/mL)Low: 0.05-0.50Intermediate: 0.51-2.00High: & gt;=2.01POCT-GLUCOSE [id number] 12:08:00 Test Item Value Reference Range Comments POC-GLUCOSE METER (BEAKER) 128 mg/dL 70-110 TESTED AT [address] (test ulhs=9519) [place] [id number] LACTIC ACID, [id number] 11:54:00 Test Item Value Reference Range Comments LACTATE BLOOD VENOUS (2) (BEAKER) (test 1.7 mmol/L 0.5-2.2 eunn=8714) POCT-GLUCOSE [id number] 09:43:00 Test Item Value Reference Range Comments POC-GLUCOSE METER (BEAKER) 142 mg/dL 70-110 TESTED AT [address] (test rgnv=4438) [place] [id number] POCT-GLUCOSE [id number] 09:41:00 Test Item Value Reference Range Comments POC-GLUCOSE METER (BEAKER) 147 mg/dL 70-110 TESTED AT [address] (test jpgz=8454) [place] [address] POCT-GLUCOSE [id number] 09:38:00 Test Item Value Reference Range Comments POC-GLUCOSE METER (BEAKER) 149 mg/dL 70-110 TESTED AT [address] (test cdoj=4196) [place] [id number] POCT-GLUCOSE [id number] 09:38:00 Test Item Value Reference Range Comments POC-GLUCOSE METER (BEAKER) 147 mg/dL 70-110 TESTED AT [address] (test mpbn=4499) [place] [id number] VANCOMYCIN LEVEL, [id number] 09:37:00 Test Item Value Reference Range Comments VANCOMYCIN TROUGH (BEAKER) (test yyqo=617) 10.5 ug/mL 10.0-20.0 POCT-GLUCOSE [id number] 09:35:00 Test Item Value Reference Range Comments POC-GLUCOSE METER (BEAKER) 161 mg/dL 70-110 TESTED AT [address] (test cwrm=6882) [place] [id number] HEMOGLOBIN AND [id number] 09:18:00 Test Item Value Reference Range Comments HEMOGLOBIN (BEAKER) (test dxea=829) 9.3 GM/DL 11.2-15.7 HEMATOCRIT (BEAKER) (test plld=101) 28.0 % 34.1-44.9 RAD, CHEST, 1 VIEW, NON [id number] 09:12:00Reason for exam:->Picc line placementShould this be [...] Verified Date/ Time: 12/07/2018 09:12:03 Reading Location: [facility] Reading Room RAD , ABDOMEN/KUB, 1 VIEW [id number] 04:39:00Reason for exam:->Concern for SBO vs Ileus [...] Goldman MDReportVerified Date/Time: 12/07/2018 04:39:54 Reading Location: [address] Reading Room [id number] 04:12:00 Test Item Value Reference Range Comments PHOSPHORUS (BEAKER) (test gzfz=381) 3.5 mg/dL 2.3-4.7 [id number] 04:12:00 Test Item Value Reference Range Comments MAGNESIUM (BEAKER) (test ouko=377) 1.8 mg/dL 1.6-2.6 BASIC METABOLIC [id number] 04:12:00 Test Item Value Reference Range Comments SODIUM (BEAKER) (test 141 meq/L 136-145 jgyt=871) POTASSIUM (BEAKER) (test 3.5 meq/L 3.5-5.1 euhh=035) CHLORIDE (BEAKER) (test 109 meq/L 98-107 xxmj=952) CO2 (BEAKER) (test 21 meq/L 22-29 lgpb=850) BLOOD UREA NITROGEN 27 mg/dL 7-21 (BEAKER) (test bune=484) CREATININE (BEAKER) (test 0.77 mg/dL 0.57-1.25 wqso=255) GLUCOSE RANDOM (BEAKER) 144 mg/dL 70-105 (test tgbs=370) CALCIUM (BEAKER) (test 8.6 mg/dL 8.4-10.2 iffv=359) EGFR (BEAKER) (test 76 mL/min/1.73 sq m ESTIMATED GFR IS NOT ffsu=2329) ACCURATE CREATININE CLEARANCE IN PREDICTING GLOMERULAR FILTRATION RATE. ESTIMATED GFR IS NOT APPLICABLE FOR DIALYSIS PATIENTS. Specimen slightly ictericHEPATIC FUNCTION [id number] 04:12:00 Test Item Value Reference Range Comments TOTAL PROTEIN (BEAKER) (test eisi=484) 5.9 gm/dL 6.0-8.3 ALBUMIN (BEAKER) (test xonz=4539) 3.4 g/dL 3.5-5.0 BILIRUBIN TOTAL (BEAKER) (test tqpe=017) 2.3 mg/dL 0.2-1.2 BILIRUBIN DIRECT (BEAKER) (test aghg=380) 1.0 mg/dL 0.1-0.5 ALKALINE PHOSPHATASE (BEAKER) (test bdgb=236) 78 U/L 40-150 AST (SGOT) (BEAKER) (test yqhc=573) 204 U/L 5-34 ALT (SGPT) (BEAKER) (test xkfq=387) 392 U/L 6-55 Specimen slightly ictericLACTIC ACID, [id number] 03:49:00 Test Item Value Reference Range Comments LACTATE BLOOD VENOUS (2) 2.3 mmol/L 0.5-2.2 Specimen slightly hemolyzed (BEAKER) (test dlbb=6620) Specimen slightly ictericPT/[id number] 03:47:00 Test Item Value Reference Range Comments PROTIME (BEAKER) (test fntc=547) 16.3 seconds 11.9-14.2 INR (BEAKER) (test ygei=710) 1.4 <=5.9 PARTIAL THROMBOPLASTIN TIME (BEAKER) (test 25.9 seconds 22.5-36.0 juce=081) Effective 10/24/2018: PT Reference Range ChangeNew: 11.9-14.2 Previous: 11.7- 14.7RECOMMENDED COUMADIN/WARFARIN INR THERAPY RANGESSTANDARD DOSE: 2.0-3.0 Includes: PROPHYLAXIS for venous thrombosis, systemic embolization; TREATMENT for venous thrombosis and/or pulmonary embolus.HIGH RISK: Target INR is2.5-3.5 for patients wiht mechanical heart valves.[id number] 03:47:00 Test Item Value Reference Range Comments FIBRINOGEN LEVEL (BEAKER) (test mbob=009) 252 mg/dl 225-434 CBC W/PLT COUNT & AUTO [id number] 03:43:00 Test Item Value Reference Range Comments WHITE BLOOD CELL COUNT (BEAKER) (test bfhx=641) 14.3 K/ L 3.5-10.5 RED BLOOD CELL COUNT (BEAKER) (test osoo=614) 3.04 M/ L 3.93-5.22 HEMOGLOBIN (BEAKER) (test lnky=065) 9.6 GM/DL 11.2-15.7 HEMATOCRIT (BEAKER) (test ivbd=226) 28.9 % 34.1-44.9 MEAN CORPUSCULAR VOLUME (BEAKER) (test cfwj=684) 95.1 fL 79.4-94.8 MEAN CORPUSCULAR HEMOGLOBIN (BEAKER) (test 31.6 pg 25.6-32.2 yviw=139) MEAN CORPUSCULAR HEMOGLOBIN CONC (BEAKER) (test 33.2 GM/DL 32.2-35.5 otxo=331) RED CELL DISTRIBUTION WIDTH (BEAKER) (test 22.7 % 11.7-14.4 ztaw=572) PLATELET COUNT (BEAKER) (test vgkg=145) 133 K/CU MM 150-450 MEAN PLATELET VOLUME (BEAKER) (test jzja=752) 12.0 fL 9.4-12.3 NUCLEATED RED BLOOD CELLS (BEAKER) (test 3 /100 WBC 0-0 cipm=757) NEUTROPHILS RELATIVE PERCENT (BEAKER) (test 67 % plpr=989) LYMPHOCYTES RELATIVE PERCENT (BEAKER) (test 17 % wbgd=838) MONOCYTES RELATIVE PERCENT (BEAKER) (test 15 % psbv=344) EOSINOPHILS RELATIVE PERCENT (BEAKER) (test 0 % viur=028) BASOPHILS RELATIVE PERCENT (BEAKER) (test 0 % tcai=534) NEUTROPHILS ABSOLUTE COUNT (BEAKER) (test 9.64 K/ L 1.56-6.13 ynpd=312) LYMPHOCYTES ABSOLUTE COUNT (BEAKER) (test 2.41 K/ L 1.18-3.74 fpdt=422) MONOCYTES ABSOLUTE COUNT (BEAKER) (test 2.13 K/ L 0.24-0.36 gaen=566) EOSINOPHILS ABSOLUTE COUNT (BEAKER) (test 0.01 K/ L 0.04-0.36 gnqp=692) BASOPHILS ABSOLUTE COUNT (BEAKER) (test 0.06 K/ L 0.01-0.08 nehg=523) IMMATURE GRANULOCYTES-RELATIVE PERCENT (BEAKER) 1 % 0-1 (test fara=3766) BLOOD GAS, [id number] 00:47:00 Test Item Value Reference Range Comments PH VENOUS (BEAKER) (test bxnr=211) 7.44 7.32-7.42 PCO2 VENOUS (BEAKER) (test bwoe=396) 36 mmHg 41-51 PO2 VENOUS (BEAKER) (test oejg=270) 43 mmHg 25-40 O2 SATURATION VENOUS (BEAKER) (test znxu=544) 81.3 % 40.0-70.0 HCO3 VENOUS (BEAKER) (test oaxf=201) 24 mmol/L 21-29 BASE EXCESS VENOUS (BEAKER) (test ekbc=129) -0.2 mmol/L -2.0-3.0 PATIENT TEMPERATURE (BEAKER) (test jygd=8956) 36.7 C FIO2 (BEAKER) (test nihp=5171) 21.0 % HEMOGLOBIN AND [id number] 00:36:00 Test Item Value Reference Range Comments HEMOGLOBIN (BEAKER) (test hlxn=456) 9.7 GM/DL 11.2-15.7 HEMATOCRIT (BEAKER) (test rplp=308) 29.0 % 34.1-44.9 CT, [id number] 00:24:00FINAL REPORT EXAM: CT of the abdomen [...] 12/07/2018 00:24:22 12:24 AMRAD, ABDOMEN/KUB, 1 VIEW [id number] 18: 47:00Reason for exam:->abdominal distensionShould this be [...] Macey PhippsortVerified Date/Time: 12/06/2018 18:47:51 Reading Location: [address] Reading Room Electronically signed by: MACEY PHIPPS MD on 12/06 06:47 [id number] 18:17:00 Test Item Value Reference Range Comments PHOSPHORUS (BEAKER) (test 3.0 mg/dL 2.3-4.7 Specimen slightly hemolyzed huvl=205) BASIC METABOLIC [id number] 18:17:00 Test Item Value Reference Range Comments SODIUM (BEAKER) (test 142 meq/L 136-145 vefz=104) POTASSIUM (BEAKER) (test 3.3 meq/L 3.5-5.1 Specimen slightly fkic=850) hemolyzed CHLORIDE (BEAKER) (test 112 meq/L 98-107 blod=569) CO2 (BEAKER) (test 20 meq/L 22-29 xcgd=301) BLOOD UREA NITROGEN 25 mg/dL 7-21 (BEAKER) (test qayp=946) CREATININE (BEAKER) (test 0.73 mg/dL 0.57-1.25 Specimen slightly ndcg=534) hemolyzed GLUCOSE RANDOM (BEAKER) 150 mg/dL 70-105 (test xyvz=104) CALCIUM (BEAKER) (test 8.2 mg/dL 8.4-10.2 spid=713) EGFR (BEAKER) (test 81 mL/min/1.73 sq m ESTIMATED GFR IS NOT phmz=6029) ACCURATE CREATININE CLEARANCE IN PREDICTING GLOMERULAR FILTRATION RATE. ESTIMATED GFR IS NOT APPLICABLE FOR DIALYSIS PATIENTS. RAD, CHEST, 1 VIEW, NON [id number] 18:15:00Reason for exam:->shortness of breathShould this be [...] Phipps MDReportVerified Date/Time: 12/06/2018 18:15:51 Reading Location: [address] Reading Room Electronically signed by: MACEY PHIPPS MD on 12/06 06:15 PMCBC W/PLT COUNT & AUTO [id number] 18:00:00 Test Item Value Reference Range Comments WHITE BLOOD CELL COUNT (BEAKER) (test yjdp=755) 12.6 K/ L 3.5-10.5 RED BLOOD CELL COUNT (BEAKER) (test ycwb=821) 2.95 M/ L 3.93-5.22 HEMOGLOBIN (BEAKER) (test fpti=963) 9.3 GM/DL 11.2-15.7 HEMATOCRIT (BEAKER) (test fama=898) 28.1 % 34.1-44.9 MEAN CORPUSCULAR VOLUME (BEAKER) (test iekd=663) 95.3 fL 79.4-94.8 MEAN CORPUSCULAR HEMOGLOBIN (BEAKER) (test 31.5 pg 25.6-32.2 vpde=824) MEAN CORPUSCULAR HEMOGLOBIN CONC (BEAKER) (test 33.1 GM/DL 32.2-35.5 reio=325) RED CELL DISTRIBUTION WIDTH (BEAKER) (test 23.1 % 11.7-14.4 tlkx=860) PLATELET COUNT (BEAKER) (test kvem=957) 126 K/CU MM 150-450 MEAN PLATELET VOLUME (BEAKER) (test kcod=847) 11.5 fL 9.4-12.3 NUCLEATED RED BLOOD CELLS (BEAKER) (test 3 /100 WBC 0-0 ubss=795) (CELLAVISION MANUAL DIFF)2018-12-06 18:00:00 Test Item Value Reference Range Comments NEUTROPHILS - REL (CELLAVISION)(BEAKER) (test 75 % qdus=2554) LYMPHOCYTES - REL (CELLAVISION)(BEAKER) (test 15 % fdru=9736) MONOCYTES - REL (CELLAVISION)(BEAKER) (test 7 % qfvl=1855) BASOPHILS - REL (CELLAVISION)(BEAKER) (test 1 % vrpw=1837) BANDS - REL (CELLAVISION)(BEAKER) (test 2 % 0-10 vuje=3786) NEUTROPHILS - ABS (CELLAVISION)(BEAKER) (test 9.45 K/ul 1.56-6.13 hqgh=7129) LYMPHOCYTES - ABS (CELLAVISION)(BEAKER) (test 1.89 K/ul 1.18-3.74 oljb=0263) MONOCYTES - ABS (CELLAVISION)(BEAKER) (test 0.88 K/uL 0.24-0.36 ysut=4027) BASOPHILS - ABS (CELLAVISION)(BEAKER) (test 0.13 K/uL 0.01-0.08 dhcu=8967) BANDS - ABS (CELLAVISION)(BEAKER) (test 0.25 K/uL 0.00-0.80 talq=2049) TOTAL COUNTED (BEAKER) (test rzra=6021) 100 MANUAL NRBC PER 100 CELLS (BEAKER) (test 3 /100 WBC 0-0 hfvq=9201) SMUDGE CELLS (BEAKER) (test elue=2608) Present GIANT PLATELETS (BEAKER) (test jovt=787) Present POLYCHROMATOPHILLIC RBCS(BEAKER) (test qchc=742) 1+ few ANISOCYTOSIS (BEAKER) (test nsul=283) 2+ moderate MICROCYTES (BEAKER) (test wuct=285) 2+ moderate POIKILOCYTES (BEAKER) (test tvju=359) 1+ few ELLIPTOCYTES (BEAKER) (test xnyj=755) 1+ few ARTIFACT (CELLAVISION)(BEAKER) (test oyoi=3785) Present PLATELET CONCENTRATION (CELLAVISION)(BEAKER) Decreased (test ngrv=8490) Received comment: User comments: Slide comments:HEMOGLOBIN AND [id number] 17:32:00 Test Item Value Reference Range Comments HEMOGLOBIN (BEAKER) (test bpwq=349) 9.3 GM/DL 11.2-15.7 HEMATOCRIT (BEAKER) (test ogbl=895) 28.1 % 34.1-44.9 ANTI-NUCLEAR ANTIBODY (SATNAM)2018-12-06 10:40:00 Test Item Value Reference Range Comments ANTI-NUCLEAR ANTIBODY (SATNAM) (BEAKER) (test Negative Negative jske=543) Test performed by IFA method.Test performed by IFA method.LACTIC ACID, [id number] 09:53:00 Test Item Value Reference Range Comments LACTATE BLOOD VENOUS (2) (BEAKER) (test 1.6 mmol/L 0.5-2.2 zzvt=0995) [id number] 09:48:00 Test Item Value Reference Range Comments AMMONIA (BEAKER) (test wuks=743) 54 mol/L 18-72 POCT-GLUCOSE [id number] 06:27:00 Test Item Value Reference Range Comments POC-GLUCOSE METER (BEAKER) 181 mg/dL 70-110 TESTED AT [facility] [address] [facility] [address] (test iwrv=0742) [facility] [address] [id number] 04:38:00 Test Item Value Reference Range Comments PHOSPHORUS (BEAKER) (test 1.4 mg/dL 2.3-4.7 Specimen slightly hemolyzed szou=964) [id number] 04:33:00 Test Item Value Reference Range Comments MAGNESIUM (BEAKER) (test 1.9 mg/dL 1.6-2.6 Specimen slightly hemolyzed vuma=682) BASIC METABOLIC [id number] 04:33:00 Test Item Value Reference Range Comments SODIUM (BEAKER) (test 146 meq/L 136-145 hpgw=339) POTASSIUM (BEAKER) (test 3.4 meq/L 3.5-5.1 Specimen slightly poah=366) hemolyzed CHLORIDE (BEAKER) (test 116 meq/L 98-107 sesc=790) CO2 (BEAKER) (test 21 meq/L 22-29 fksw=582) BLOOD UREA NITROGEN 29 mg/dL 7-21 (BEAKER) (test lgny=877) CREATININE (BEAKER) (test 0.73 mg/dL 0.57-1.25 Specimen slightly cnrt=513) hemolyzed GLUCOSE RANDOM (BEAKER) 226 mg/dL 70-105 (test ybjy=091) CALCIUM (BEAKER) (test 8.0 mg/dL 8.4-10.2 whdq=822) EGFR (BEAKER) (test 81 mL/min/1.73 sq m ESTIMATED GFR IS NOT ixje=5485) ACCURATE CREATININE CLEARANCE IN PREDICTING GLOMERULAR FILTRATION RATE. ESTIMATED GFR IS NOT APPLICABLE FOR DIALYSIS PATIENTS. HEPATIC FUNCTION [id number] 04:33:00 Test Item Value Reference Range Comments TOTAL PROTEIN (BEAKER) (test 5.2 gm/dL 6.0-8.3 Specimen slightly hemolyzed tsky=732) ALBUMIN (BEAKER) (test 3.0 g/dL 3.5-5.0 Specimen slightly hemolyzed yvjk=8423) BILIRUBIN TOTAL (BEAKER) (test 1.4 mg/dL 0.2-1.2 Specimen slightly hemolyzed wjrx=619) BILIRUBIN DIRECT (BEAKER) (test 0.5 mg/dL 0.1-0.5 Specimen slightly hemolyzed kxcb=019) ALKALINE PHOSPHATASE (BEAKER) 55 U/L 40-150 (test mfvr=689) AST (SGOT) (BEAKER) (test 282 U/L 5-34 Specimen slightly hemolyzed fnjl=935) ALT (SGPT) (BEAKER) (test 443 U/L 6-55 Specimen slightly hemolyzed ripr=697) CBC W/PLT COUNT & AUTO [id number] 04:30:00 Test Item Value Reference Range Comments WHITE BLOOD CELL COUNT (BEAKER) (test mhrm=304) 12.3 K/ L 3.5-10.5 RED BLOOD CELL COUNT (BEAKER) (test ozhz=604) 2.78 M/ L 3.93-5.22 HEMOGLOBIN (BEAKER) (test ieso=822) 8.7 GM/DL 11.2-15.7 HEMATOCRIT (BEAKER) (test tsuk=797) 27.3 % 34.1-44.9 MEAN CORPUSCULAR VOLUME (BEAKER) (test dgyu=997) 98.2 fL 79.4-94.8 MEAN CORPUSCULAR HEMOGLOBIN (BEAKER) (test 31.3 pg 25.6-32.2 loea=173) MEAN CORPUSCULAR HEMOGLOBIN CONC (BEAKER) (test 31.9 GM/DL 32.2-35.5 obfn=333) RED CELL DISTRIBUTION WIDTH (BEAKER) (test 22.3 % 11.7-14.4 mhow=925) PLATELET COUNT (BEAKER) (test qnmd=838) 112 K/CU MM 150-450 MEAN PLATELET VOLUME (BEAKER) (test hyym=951) 11.9 fL 9.4-12.3 NUCLEATED RED BLOOD CELLS (BEAKER) (test 2 /100 WBC 0-0 iwpw=986) NEUTROPHILS RELATIVE PERCENT (BEAKER) (test 61 % qdcp=500) LYMPHOCYTES RELATIVE PERCENT (BEAKER) (test 24 % tohl=399) MONOCYTES RELATIVE PERCENT (BEAKER) (test 12 % pxps=093) EOSINOPHILS RELATIVE PERCENT (BEAKER) (test 2 % jucq=397) BASOPHILS RELATIVE PERCENT (BEAKER) (test 1 % ijrt=605) NEUTROPHILS ABSOLUTE COUNT (BEAKER) (test 7.52 K/ L 1.56-6.13 njdb=560) LYMPHOCYTES ABSOLUTE COUNT (BEAKER) (test 2.97 K/ L 1.18-3.74 kiua=526) MONOCYTES ABSOLUTE COUNT (BEAKER) (test 1.44 K/ L 0.24-0.36 quea=262) EOSINOPHILS ABSOLUTE COUNT (BEAKER) (test 0.20 K/ L 0.04-0.36 poeg=674) BASOPHILS ABSOLUTE COUNT (BEAKER) (test 0.06 K/ L 0.01-0.08 bsxx=578) IMMATURE GRANULOCYTES-RELATIVE PERCENT (BEAKER) 1 % 0-1 (test rvfb=8318) [id number] 04:29:00 Test Item Value Reference Range Comments PROTIME (BEAKER) (test aane=255) 16.8 seconds 11.9-14.2 INR (BEAKER) (test qsjn=206) 1.4 <=5.9 PARTIAL THROMBOPLASTIN TIME (BEAKER) (test 27.0 seconds 22.5-36.0 lnok=626) Effective 10/24/2018: PT Reference Range ChangeNew: 11.9-14.2 Previous: 11.7- 14.7RECOMMENDED COUMADIN/WARFARIN INR THERAPY RANGESSTANDARD DOSE: 2.0-3.0 Includes: PROPHYLAXIS for venous thrombosis, systemic embolization; TREATMENT for venous thrombosis and/or pulmonary embolus.HIGH RISK: Target INR is2.5-3.5 for patients wiht mechanical heart valves.[id number] 04:29:00 Test Item Value Reference Range Comments FIBRINOGEN LEVEL (BEAKER) (test yisj=364) 218 mg/dl 225-434 POCT-GLUCOSE [id number] 00:18:00 Test Item Value Reference Range Comments POC-GLUCOSE METER (BEAKER) 153 mg/dL 70-110 TESTED AT [address] (test hsus=2718) [place] [id number] HEMOGLOBIN AND [id number] 00:17:00 Test Item Value Reference Range Comments HEMOGLOBIN (BEAKER) (test vuan=480) 9.1 GM/DL 11.2-15.7 HEMATOCRIT (BEAKER) (test fqvr=282) 27.7 % 34.1-44.9 POCT-GLUCOSE [id number] 18:00:00 Test Item Value Reference Range Comments POC-GLUCOSE METER (BEAKER) 177 mg/dL 70-110 TESTED AT [address] (test seog=3999) [facility] [address] BASIC METABOLIC [id number] 13:48:00 Test Item Value Reference Range Comments SODIUM (BEAKER) (test 148 meq/L 136-145 eyef=739) POTASSIUM (BEAKER) (test 3.4 meq/L 3.5-5.1 thho=126) CHLORIDE (BEAKER) (test 119 meq/L 98-107 gyke=696) CO2 (BEAKER) (test 25 meq/L 22-29 ihbq=089) BLOOD UREA NITROGEN 36 mg/dL 7-21 (BEAKER) (test dzle=295) CREATININE (BEAKER) (test 0.73 mg/dL 0.57-1.25 mlqg=106) GLUCOSE RANDOM (BEAKER) 165 mg/dL 70-105 (test gdpv=739) CALCIUM (BEAKER) (test 7.8 mg/dL 8.4-10.2 pksy=548) EGFR (BEAKER) (test 81 mL/min/1.73 sq m ESTIMATED GFR IS NOT ucpr=2629) ACCURATE CREATININE CLEARANCE IN PREDICTING GLOMERULAR FILTRATION RATE. ESTIMATED GFR IS NOT APPLICABLE FOR DIALYSIS PATIENTS. [id number] 13:45:00 Test Item Value Reference Range Comments PHOSPHORUS (BEAKER) (test nlds=442) 2.1 mg/dL 2.3-4.7 HEMOGLOBIN AND [id number] 13:30:00 Test Item Value Reference Range Comments HEMOGLOBIN (BEAKER) (test qgaf=083) 6.9 GM/DL 11.2-15.7 HEMATOCRIT (BEAKER) (test wcwm=200) 21.5 % 34.1-44.9 POCT-GLUCOSE [id number] 12:17:00 Test Item Value Reference Range Comments POC-GLUCOSE METER (BEAKER) 179 mg/dL 70-110 TESTED AT [facility] [address] [facility] (test nvlf=0731) [facility] [address] CBC W/PLT COUNT & AUTO [id number] 10:50:00 Test Item Value Reference Range Comments WHITE BLOOD CELL COUNT (BEAKER) (test pmjp=243) 14.7 K/ L 3.5-10.5 RED BLOOD CELL COUNT (BEAKER) (test rnix=362) 2.30 M/ L 3.93-5.22 HEMOGLOBIN (BEAKER) (test uwns=729) 7.4 GM/DL 11.2-15.7 HEMATOCRIT (BEAKER) (test rvep=798) 22.5 % 34.1-44.9 MEAN CORPUSCULAR VOLUME (BEAKER) (test rskj=262) 97.8 fL 79.4-94.8 MEAN CORPUSCULAR HEMOGLOBIN (BEAKER) (test 32.2 pg 25.6-32.2 ffqi=755) MEAN CORPUSCULAR HEMOGLOBIN CONC (BEAKER) (test 32.9 GM/DL 32.2-35.5 fvxz=304) RED CELL DISTRIBUTION WIDTH (BEAKER) (test 22.2 % 11.7-14.4 yhdq=770) PLATELET COUNT (BEAKER) (test ugmm=901) 120 K/CU MM 150-450 MEAN PLATELET VOLUME (BEAKER) (test zqaj=699) 11.9 fL 9.4-12.3 NUCLEATED RED BLOOD CELLS (BEAKER) (test 2 /100 WBC 0-0 cxtr=615) (CELLAVISION MANUAL DIFF)2018-12-05 10:50:00 Test Item Value Reference Range Comments NEUTROPHILS - REL (CELLAVISION)(BEAKER) (test 77 % dfkc=0103) LYMPHOCYTES - REL (CELLAVISION)(BEAKER) (test 15 % vamj=7634) MONOCYTES - REL (CELLAVISION)(BEAKER) (test 8 % uuha=8085) BANDS - REL (CELLAVISION)(BEAKER) (test 1 % 0-10 jwtb=8539) NEUTROPHILS - ABS (CELLAVISION)(BEAKER) (test 11.32 K/ul 1.56-6.13 mona=4285) LYMPHOCYTES - ABS (CELLAVISION)(BEAKER) (test 2.21 K/ul 1.18-3.74 fudt=9808) MONOCYTES - ABS (CELLAVISION)(BEAKER) (test 1.18 K/uL 0.24-0.36 rkct=3397) BANDS - ABS (CELLAVISION)(BEAKER) (test 0.15 K/uL 0.00-0.80 larh=8951) TOTAL COUNTED (BEAKER) (test fcsy=4336) 100 MANUAL NRBC PER 100 CELLS (BEAKER) (test 3 /100 WBC 0-0 zzhf=2541) WBC MORPHOLOGY (BEAKER) (test lclj=082) Normal PLT MORPHOLOGY (BEAKER) (test afcx=220) Normal POLYCHROMATOPHILLIC RBCS(BEAKER) (test qwpr=896) 1+ few MICROCYTES (BEAKER) (test fvpi=972) 1+ few MACROCYTES (BEAKER) (test fkbt=884) 1+ few OVALOCYTES (BEAKER) (test hfes=235) 1+ few ARTIFACT (CELLAVISION)(BEAKER) (test oxkx=4682) Present PLATELET CONCENTRATION (CELLAVISION)(BEAKER) Decreased (test hzmq=4496) Received comment: User comments: Slide comments:POCT-GLUCOSE [id number] 06: 14:00 Test Item Value Reference Range Comments POC-GLUCOSE METER (BEAKER) 173 mg/dL 70-110 TESTED AT [facility] [address] [facility] (test bcqw=7922) [facility] [address] U/S, ABDOMINAL, WITH [id number] 05:32:00Reason for exam:->evaluate portal vein, evaluate biliary [...] MDReport Verified Date/Time: 12/05/2018 05:32:17 BASIC METABOLIC [id number] 04:35:00 Test Item Value Reference Range Comments SODIUM (BEAKER) (test 150 meq/L 136-145 cali=932) POTASSIUM (BEAKER) (test 3.6 meq/L 3.5-5.1 mybn=092) CHLORIDE (BEAKER) (test 121 meq/L 98-107 shlu=160) CO2 (BEAKER) (test 20 meq/L 22-29 dkmb=188) BLOOD UREA NITROGEN 38 mg/dL 7-21 (BEAKER) (test sxoy=993) CREATININE (BEAKER) (test 0.73 mg/dL 0.57-1.25 ukzq=185) GLUCOSE RANDOM (BEAKER) 162 mg/dL 70-105 (test bkvv=493) CALCIUM (BEAKER) (test 8.2 mg/dL 8.4-10.2 ulzi=296) EGFR (BEAKER) (test 81 mL/min/1.73 sq m ESTIMATED GFR IS NOT sumx=7847) ACCURATE CREATININE CLEARANCE IN PREDICTING GLOMERULAR FILTRATION RATE. ESTIMATED GFR IS NOT APPLICABLE FOR DIALYSIS PATIENTS. [id number] 04:34:00 Test Item Value Reference Range Comments PHOSPHORUS (BEAKER) (test qsne=560) 2.0 mg/dL 2.3-4.7 [id number] 04:34:00 Test Item Value Reference Range Comments MAGNESIUM (BEAKER) (test epri=823) 2.1 mg/dL 1.6-2.6 HEPATIC FUNCTION [id number] 04:34:00 Test Item Value Reference Range Comments TOTAL PROTEIN (BEAKER) (test yqdm=124) 4.9 gm/dL 6.0-8.3 ALBUMIN (BEAKER) (test qdyq=0300) 3.0 g/dL 3.5-5.0 BILIRUBIN TOTAL (BEAKER) (test axgm=865) 0.9 mg/dL 0.2-1.2 BILIRUBIN DIRECT (BEAKER) (test uxoo=228) 0.5 mg/dL 0.1-0.5 ALKALINE PHOSPHATASE (BEAKER) (test negm=780) 50 U/L 40-150 AST (SGOT) (BEAKER) (test rqsz=571) 505 U/L 5-34 ALT (SGPT) (BEAKER) (test xojv=538) 549 U/L 6-55 [id number] 04:15:00 Test Item Value Reference Range Comments AMMONIA (BEAKER) (test mlol=371) 97 mol/L 18-72 LACTIC ACID, [id number] 04:10:00 Test Item Value Reference Range Comments LACTATE BLOOD VENOUS (2) (BEAKER) (test 2.6 mmol/L 0.5-2.2 ejwi=0447) [id number] 03:54:00 Test Item Value Reference Range Comments PROTIME (BEAKER) (test qvwu=686) 19.2 seconds 11.9-14.2 INR (BEAKER) (test mxzq=857) 1.7 <=5.9 PARTIAL THROMBOPLASTIN TIME (BEAKER) (test 31.6 seconds 22.5-36.0 qcbd=549) Effective 10/24/2018: PT Reference Range ChangeNew: 11.9-14.2 Previous: 11.7- 14.7RECOMMENDED COUMADIN/WARFARIN INR THERAPY RANGESSTANDARD DOSE: 2.0-3.0 Includes: PROPHYLAXIS for venous thrombosis, systemic embolization; TREATMENT for venous thrombosis and/or pulmonary embolus.HIGH RISK: Target INR is2.5-3.5 for patients wiht mechanical heart valves.[id number] 03:54:00 Test Item Value Reference Range Comments FIBRINOGEN LEVEL (BEAKER) (test amif=077) 188 mg/dl 225-434 POCT-GLUCOSE [id number] 00:17:00 Test Item Value Reference Range Comments POC-GLUCOSE METER (BEAKER) 185 mg/dL 70-110 TESTED AT [facility] [address] (test egkm=4565) [place] [address] HEMOGLOBIN AND [id number] 21:43:00 Test Item Value Reference Range Comments HEMOGLOBIN (BEAKER) (test lqgm=476) 8.1 GM/DL 11.2-15.7 HEMATOCRIT (BEAKER) (test ctbs=179) 24.3 % 34.1-44.9 [id number] 19:32:00 Test Item Value Reference Range Comments FERRITIN (BEAKER) (test pmkt=190) 2039 ng/mL 5-275 T4, [id number] 18:58:00 Test Item Value Reference Range Comments FREE T4 (BEAKER) (test uysp=136) 0.91 ng/dL 0.70-1.48 (CELLAVISION MANUAL DIFF)2018-12-04 18:52:00 Test Item Value Reference Range Comments NEUTROPHILS - REL (CELLAVISION)(BEAKER) (test 79 % apzm=9059) LYMPHOCYTES - REL (CELLAVISION)(BEAKER) (test 15 % vbho=2899) MONOCYTES - REL (CELLAVISION)(BEAKER) (test 4 % akbq=6850) BANDS - REL (CELLAVISION)(BEAKER) (test 1 % 0-10 rzbl=3980) NEUTROPHILS - ABS (CELLAVISION)(BEAKER) (test 14.38 K/ul 1.56-6.13 hmij=4146) LYMPHOCYTES - ABS (CELLAVISION)(BEAKER) (test 2.73 K/ul 1.18-3.74 wkkb=2080) MONOCYTES - ABS (CELLAVISION)(BEAKER) (test 0.73 K/uL 0.24-0.36 aadr=5664) BANDS - ABS (CELLAVISION)(BEAKER) (test 0.18 K/uL 0.00-0.80 hkdg=0455) TOTAL COUNTED (BEAKER) (test sljv=0829) 100 MANUAL NRBC PER 100 CELLS (BEAKER) (test 3 /100 WBC 0-0 sepx=2691) SMUDGE CELLS (BEAKER) (test qypr=1178) Present GIANT PLATELETS (BEAKER) (test zhpk=367) Present PLASMACYTOID LYMPHS(BEAKER) (test lviy=8134) Present POLYCHROMATOPHILLIC RBCS(BEAKER) (test ivfu=756) 1+ few ANISOCYTOSIS (BEAKER) (test fcjt=518) 1+ few MACROCYTES (BEAKER) (test wvwp=718) 1+ few POIKILOCYTES (BEAKER) (test xfiq=080) 1+ few OVALOCYTES (BEAKER) (test zabm=843) 1+ few ARTIFACT (CELLAVISION)(BEAKER) (test roax=4571) Present HELMET CELLS (CELLAVISION)(BEAKER) (test 1+ few qlvb=6542) PLATELET CONCENTRATION (CELLAVISION)(BEAKER) Adequate (test uwmq=5540) Received comment: User comments: Slide comments:[id number] 18:41:00 Test Item Value Reference Range Comments PROCALCITONIN (BEAKER) (test ayvv=6624) 0.20 ng/mL <0.05 SEPSIS RISK (ng/mL)Low: 0.05-0.50Intermediate: 0.51-2.00High: & gt;=2.01HEPATITIS A ANTIBODY, [id number] 18:27:00 Test Item Value Reference Range Comments HEPATITIS A IGG ANTIBODY (BEAKER) (test thwe=2150) Reactive Nonreactive HEPATITIS B SURFACE [id number] 18:26:00 Test Item Value Reference Range Comments HEPATITIS B SURFACE ANTIBODY (BEAKER) (test < mIU/mL <8.0 eaam=857) TSH/FREE T4 IF [id number] 18:26:00 Test Item Value Reference Range Comments THYROID STIMULATING HORMONE (BEAKER) (test 0.08 uIU/mL 0.35-4.94 freu=807) ALPHA FETOPROTEIN (AFP), TUMOR [id number] 18:26:00 Test Item Value Reference Range Comments ALPHA-FETOPROTEIN (BEAKER) (test rtzq=7137) 2.2 ng/mL <10.0 HEPATITIS A ANTIBODY, [id number] 18:26:00 Test Item Value Reference Range Comments HEPATITIS A IGM ANTIBODY (BEAKER) (test Nonreactive Nonreactive dmhz=757) HEPATITIS B CORE ANTIBODY, [id number] 18:26:00 Test Item Value Reference Range Comments HEPATITIS B CORE TOTAL ANTIBODY (BEAKER) (test Nonreactive Nonreactive uhcr=863) HEPATITIS B SURFACE [id number] 18:23:00 Test Item Value Reference Range Comments HEPATITIS B SURFACE ANTIGEN (2) (BEAKER) (test Nonreactive Nonreactive txls=1453) HEPATITIS C [id number] 18:23:00 Test Item Value Reference Range Comments HEPATITIS C ANTIBODY (BEAKER) (test nnmx=424) Nonreactive Nonreactive RAD, CHEST, 1 VIEW, NON [id number] 18:18:00Reason for exam:->hypoxemiaIs the patient ?->NoShould this [...] MDReport Verified Date/Time: 12/04/2018 18:18:54 Reading Location: [address] Consult Reading Room CBC W/PLT COUNT & AUTO [id number] 18:17:00 Test Item Value Reference Range Comments WHITE BLOOD CELL COUNT (BEAKER) (test ugdu=548) 18.2 K/ L 3.5-10.5 RED BLOOD CELL COUNT (BEAKER) (test oxaq=503) 2.70 M/ L 3.93-5.22 HEMOGLOBIN (BEAKER) (test txwo=811) 8.5 GM/DL 11.2-15.7 HEMATOCRIT (BEAKER) (test lctk=109) 26.1 % 34.1-44.9 MEAN CORPUSCULAR VOLUME (BEAKER) (test bfcf=140) 96.7 fL 79.4-94.8 MEAN CORPUSCULAR HEMOGLOBIN (BEAKER) (test 31.5 pg 25.6-32.2 crsw=204) MEAN CORPUSCULAR HEMOGLOBIN CONC (BEAKER) (test 32.6 GM/DL 32.2-35.5 tqcy=431) RED CELL DISTRIBUTION WIDTH (BEAKER) (test 22.2 % 11.7-14.4 urwa=022) PLATELET COUNT (BEAKER) (test jflt=995) 158 K/CU MM 150-450 MEAN PLATELET VOLUME (BEAKER) (test yzzn=225) 11.4 fL 9.4-12.3 NUCLEATED RED BLOOD CELLS (BEAKER) (test 1 /100 WBC 0-0 alsc=795) NEUTROPHILS RELATIVE PERCENT (BEAKER) (test 71 % exqp=914) LYMPHOCYTES RELATIVE PERCENT (BEAKER) (test 18 % xlwi=034) MONOCYTES RELATIVE PERCENT (BEAKER) (test 10 % qtjc=664) EOSINOPHILS RELATIVE PERCENT (BEAKER) (test 0 % lpjb=640) BASOPHILS RELATIVE PERCENT (BEAKER) (test 0 % vxxo=940) NEUTROPHILS ABSOLUTE COUNT (BEAKER) (test 12.85 K/ L 1.56-6.13 hpfh=445) LYMPHOCYTES ABSOLUTE COUNT (BEAKER) (test 3.35 K/ L 1.18-3.74 hwcb=511) MONOCYTES ABSOLUTE COUNT (BEAKER) (test 1.74 K/ L 0.24-0.36 vryh=943) EOSINOPHILS ABSOLUTE COUNT (BEAKER) (test 0.01 K/ L 0.04-0.36 mawd=549) BASOPHILS ABSOLUTE COUNT (BEAKER) (test 0.08 K/ L 0.01-0.08 xwiz=424) IMMATURE GRANULOCYTES-RELATIVE PERCENT (BEAKER) 1 % 0-1 (test rffs=3491) B-TYPE NATRIURETIC FACTOR (BNP)2018-12-04 18:10:00 Test Item Value Reference Range Comments B-TYPE NATRIURETIC PEPTIDE (BEAKER) (test 155 pg/mL 0-100 ktwt=201) COMPREHENSIVE METABOLIC [id number] 18:08:00 Test Item Value Reference Range Comments TOTAL PROTEIN (BEAKER) 5.5 gm/dL 6.0-8.3 (test noqk=624) ALBUMIN (BEAKER) (test 3.3 g/dL 3.5-5.0 igcb=7135) ALKALINE PHOSPHATASE 55 U/L 40-150 (BEAKER) (test xhtt=616) BILIRUBIN TOTAL (BEAKER) 1.1 mg/dL 0.2-1.2 (test hgnz=239) SODIUM (BEAKER) (test 150 meq/L 136-145 ronj=749) POTASSIUM (BEAKER) (test 3.5 meq/L 3.5-5.1 pupg=813) CHLORIDE (BEAKER) (test 122 meq/L 98-107 tgix=110) CO2 (BEAKER) (test 18 meq/L 22-29 iyub=235) BLOOD UREA NITROGEN 38 mg/dL 7-21 (BEAKER) (test ucco=487) CREATININE (BEAKER) (test 0.78 mg/dL 0.57-1.25 eplt=298) GLUCOSE RANDOM (BEAKER) 168 mg/dL 70-105 (test ulcb=876) CALCIUM (BEAKER) (test 8.5 mg/dL 8.4-10.2 aluc=786) AST (SGOT) (BEAKER) (test 825 U/L 5-34 izof=812) ALT (SGPT) (BEAKER) (test 712 U/L 6-55 nwwk=395) EGFR (BEAKER) (test 75 mL/min/1.73 sq m ESTIMATED GFR IS NOT vdmf=8932) ACCURATE CREATININE CLEARANCE IN PREDICTING GLOMERULAR FILTRATION RATE. ESTIMATED GFR IS NOT APPLICABLE FOR DIALYSIS PATIENTS. [id number] 18:07:00 Test Item Value Reference Range Comments PHOSPHORUS (BEAKER) (test snjd=422) 2.2 mg/dL 2.3-4.7 [id number] 18:07:00 Test Item Value Reference Range Comments MAGNESIUM (BEAKER) (test pvcs=896) 2.0 mg/dL 1.6-2.6 CHLORIDE, RANDOM [id number] 18:03:00 Test Item Value Reference Range Comments CHLORIDE URINE (BEAKER) (test bzvf=352) 58 meq/L Reference Range: No NormalsCREATININE, RANDOM [id number] 18:03:00 Test Item Value Reference Range Comments CREATININE URINE (BEAKER) (test hqzx=088) 90.3 mg/dL Reference Range: No NormalsPROTEIN, RANDOM [id number] 18:03:00 Test Item Value Reference Range Comments PROTEIN, URINE (BEAKER) (test ixar=3796) 17 mg/dL 0-14 SODIUM, RANDOM [id number] 18:03:00 Test Item Value Reference Range Comments SODIUM URINE (BEAKER) (test dwcy=791) < meq/L Reference Range: No [id number] 18:02:00 Test Item Value Reference Range Comments ALPHA-1 ANTITRYPSIN (BEAKER) (test xrkr=925) 156.80 mg/dL 90.00-200.00 IRON, TIBC, % SAT. (WITHOUT FERRITIN)2018-12-04 18:02:00 Test Item Value Reference Range Comments IRON (BEAKER) (test vqir=067) 140.0 ug/dL 40.0-160.0 TOTAL IRON BINDING CAPACITY (BEAKER) (test 258 ug/dL 250-450 neaa=896) IRON % SATURATION (2) (BEAKER) (test ubwn=8217) 54 % 20-55 RAD, ABDOMEN/KUB, 1 VIEW [id number] 18:00:00Reason for exam:->abdominal distentionShould this be performed [...] MDReport Verified Date/Time: 12/04/2018 18:00:28 Reading Location: [address] Consult Reading Room LACTIC ACID, [id number] 17:59:00 Test Item Value Reference Range Comments LACTATE BLOOD VENOUS (2) 5.4 mmol/L 0.5-2.2 Specimen slightly hemolyzed (BEAKER) (test mupy=0379) [id number] 17:58:00 Test Item Value Reference Range Comments AMMONIA (BEAKER) (test ophs=098) 121 mol/L 18-72 URINALYSIS W/ REFLEX URINE [id number] 17:57:00 Test Item Value Reference Range Comments COLOR (BEAKER) (test dnaa=630) Yellow CLARITY (BEAKER) (test zoln=719) Clear SPECIFIC GRAVITY UA (BEAKER) (test rjgl=215) 1.022 1.001-1.035 PH UA (BEAKER) (test dhea=460) 6.0 5.0-8.0 PROTEIN UA (BEAKER) (test ytwj=617) 10 mg/dL Negative GLUCOSE UA (BEAKER) (test hydo=296) Negative Negative KETONES UA (BEAKER) (test xlzm=837) Negative Negative BILIRUBIN UA (BEAKER) (test kmng=640) Negative Negative BLOOD UA (BEAKER) (test oayu=861) Moderate Negative NITRITE UA (BEAKER) (test nwph=055) Negative Negative LEUKOCYTE ESTERASE UA (BEAKER) (test szwo=440) Small Negative UROBILINOGEN UA (BEAKER) (test jvfe=483) 0.2 mg/dL 0.2-1.0 RBC UA (BEAKER) (test kabp=907) 23 /HPF WBC UA (BEAKER) (test cdwq=787) 16 /HPF MUCUS (BEAKER) (test lwuj=2257) Rare SOURCE(BEAKER) (test ybxc=3812) [id number] 17:57:00 Test Item Value Reference Range Comments PROTIME (BEAKER) (test zqom=711) 19.5 seconds 11.9-14.2 INR (BEAKER) (test qmie=110) 1.7 <=5.9 PARTIAL THROMBOPLASTIN TIME (BEAKER) (test 29.0 seconds 22.5-36.0 pvtu=216) Effective 10/24/2018: PT Reference Range ChangeNew: 11.9-14.2 Previous: 11.7- 14.7RECOMMENDED COUMADIN/WARFARIN INR THERAPY RANGESSTANDARD DOSE: 2.0-3.0 Includes: PROPHYLAXIS for venous thrombosis, systemic embolization; TREATMENT for venous thrombosis and/or pulmonary embolus.HIGH RISK: Target INR is2.5-3.5 for patients wiht mechanical heart valves.[id number] 17:57:00 Test Item Value Reference Range Comments FIBRINOGEN LEVEL (BEAKER) (test sadz=664) 224 mg/dl 225-434 BLOOD GAS, [id number] 17:46:00 Test Item Value Reference Range Comments PH ARTERIAL (BEAKER) (test stpl=059) 7.46 7.35-7.45 PCO2 ARTERIAL (BEAKER) (test snzw=456) 27 mmHg 35-45 PO2 ARTERIAL (BEAKER) (test pkaw=872) 83 mmHg 80-90 O2 SATURATION ARTERIAL (BEAKER) (test qgtr=520) 97.0 % 96.0-97.0 HCO3 ARTERIAL (BEAKER) (test bqsw=799) 19 mmol/L 21-29 BASE EXCESS ARTERIAL (BEAKER) (test jjnu=985) -4.3 mmol/L -2.0-3.0 PATIENT TEMPERATURE (BEAKER) (test pacv=6470) 36.7 C FIO2 (BEAKER) (test ycpd=1219) 40.0 %
[2019-07-03] MEDS ORDERED: Ringers Lactate 1,000 ML IV ONE (06:40)
[2019-07-03] MEDS ORDERED: ONDANSETRON 4 MG/2 ML VIAL ONE (06:58)
[2019-07-03] MEDS ORDERED: PROMETHAZINE INJ 25 MG/ML AMP ONE (08:06)
[2019-07-03] MEDS ORDERED: LIDOCAINE 1% MPF 5 ML VIAL ONE (08:07)
[2019-07-03] MEDS ORDERED: propofoL 200 MG/20 ML VIAL IV ONE (08:07)
[2019-07-03] MEDS ORDERED: EPINEPHRINE/PF 1 MG/ML AMP ONE (08:12)
--- NOTE | 2019-07-03 08:31 | ENDO RPT ---
[address], [address] EGD PROCEDURE REPORT EXAM DATE: 07/03/2019 PATIENT NAME: Kaitlyn Sesay MR#: [id number] BIRTHDATE: 1960 ATTENDING: Riley Lacy Dr STATUS: outpatient PICTURE PAINTER: Christina Ng and Abril Black RN INDICATIONS: The patient is a 59 yr old Female here for an EGD due to bleeding varices PROCEDURE PERFORMED: EGD, diagnostic MEDICATIONS: Per Anesthesia. TOPICAL ANESTHETIC: none CONSENT: The patient understands the risks and benefits of the procedure and understands that these risks include, but are not limited to: sedation, allergic reaction, infection, perforation and/or bleeding. Alternative means of evaluation and treatment include, among others: physical exam, x-rays, and/or surgical intervention. The patient elects to proceed with this endoscopic procedure. DESCRIPTION OF PROCEDURE: During intra-op preparation period all mechanical medical equipment was checked for proper function. Hand hygiene and appropriate measures for infection prevention was taken. Procedure, possible complications, and alternatives including but not limited to the possibility of bleeding, perforation, tear, infection, sepsis, need for surgery, need for blood transfusion, and anesthesia related complications were explained to the patient. After the risks, benefits and alternatives of the procedure were thoroughly explained, Informed consent was verified, confirmed and timeout was successfully executed by the treatment team. The patient was placed in the left lateral position. The patient was anesthetized with topical anesthesia. Through the anesthetized oropharyngeal area, the scope was passed without any difficulty. The Pentax [id number] ([id number]) endoscope was introduced through the mouth and advanced to the second portion of the duodenum. Retroflexed views revealed no abnormalities. The gastroscope was then slowly withdrawn and removed. Grade II varices were found in the lower esophagus. Moderate amount of solid > liquid retained food was present in the body/fundus of the stomach. ADVERSE EVENTS: There were no complications. IMPRESSIONS: 1. 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 Moderate amount of retained solid > liquid food in the body/fundus of the stomach (unable to suction out with endoscope) RECOMMENDATIONS: gastric emptying study REPEAT EXAM: Return in 1 week(s) for EGD after 24 hour fast with only clear liquids the day before EGD. Riley Lacy Dr eSigned: Riley Lacy Dr 07/03/2019 8:30 AM cc: Sita Whyte CPT CODES: ICD9 CODES: PATIENT NAME: Kaitlyn Sesay MR#: [id number]
[2019-07-03 10:01] VITALS: O2SAT 100
[2019-07-03 10:02] VITALS: BP 121/66; TEMP 97.1
== END 2019-07-03 09:00 | disposition home or self-care (01) ==
LOC: OR 06:21
PROVIDERS: ATTEND Internal Medicine Gastroenterology
PROC: 0DJ08ZZ Inspection of Upper Intestinal Tract, Via Natural or Artificial Opening Endoscopic (ICD-10-PCS; principal; 2019-07-03 08:00)
DX: I85.11 Secondary esophageal varices with bleeding (principal); K74.60 Unspecified cirrhosis of liver; I10 Essential (primary) hypertension; E07.9 Disorder of thyroid, unspecified; Z88.0 Allergy status to penicillin; Z88.2 Allergy status to sulfonamides; Z88.3 Allergy status to other anti-infective agents; Z88.6 Allergy status to analgesic agent; Z88.8 Allergy status to other drugs, medicaments and biological substances; F17.200 Nicotine dependence, unspecified, uncomplicated; Z80.0 Family history of malignant neoplasm of digestive organs; Z83.79 Family history of other diseases of the digestive system; Z82.49 Family history of ischemic heart disease and other diseases of the circulatory system
CPT/HCPCS: 43235; J2704; J2550; J7120; J2405; J0171

== ENCOUNTER 2019-07-18 14:48 | Inpatient (IN) | payer OTHER ==
--- OUTSIDE RECORDS SUMMARY | 2019-07-18 15:00 | XMS REPORT ---
:1960 [facility] Address [address] [place] [address] Dr. Zaragoza [address] [place] [address] Care Team Providers Name Role Phone DONAVON MISTRY Unavailable Unavailable YRN PORTILLO Unavailable Unavailable Problems This patient has no known problems. Allergies, Adverse Reactions, Alerts This patient has no known allergies or adverse reactions. Medications This patient has no known medications. Results Test Description Test Time Test Comments Text Results Atomic Results Result Comments AMMONIA 2019-07-18 11:24:00 Test Item Value Reference Range Comments AMMONIA (BEAKER) (test whqn=671) 121 mol/L 18-72 Sample not centrifuged within 15 minutes of collection. Result may be spuriously elevated.[id number] 10:38:00 Test Item Value Reference Range Comments AMMONIA (BEAKER) (test lynn=723) 54 mol/L 18-72 Sample not centrifuged within 15 minutes of collection.Result may be spuriously elevated.TISSUE [id number] 17:34:00Surgical Pathology Report Case: [id number] Authorizing Provider: Donavon Mistry MD Collected: 01/21/2019 1144 Ordering Location: [facility] Endoscopy Received: 2018 1444 Services Pathologist: Rachael Savage MD Specimens: A) - Small Bowel, NOS, Small Bowel Biopsy B) -Stomach , Antrum, Gastric Antrum Biopsy A. SMALL BOWEL BIOPSY- DUODENAL MUCOSA WITH NO DIAGNOSTIC ALTERATIONB. STOMACH ANTRUM BIOPSY- CHRONIC INACTIVE GASTRITIS, MILD- NO INTESTINAL METAPLASIA, DYSPLASIA OR INVASIVE CARCINOMA IDENTIIFIED- NO HELICOBACTER PYLORI LIKE ORGANISMS IDENTIFIED ON WARTHIN STARRY STAIN Signing Pathologist Direct Phone Line: [phone] signed by Rachael Savage MD on 2018 at 5:34 [id number] X 2, [id number] VARICES WITHOUT BLEEDINGA. Small bowel NOSB. Gastric antrumPart A. The specimen is received in formalin container labeled with the patient's name, date of and medical record number. The specimen consists of multiple portions of lindquist-brown tissue 0.6 x 0.4 x 0.3 cm in aggregate submitted intoto in one cassette.Part B. The specimen is received in formalin container labeled with the patient's name, date of and medical record number and consists of multiple portions of lindquist-brown tissue 0.6 x 0.4 x 0.3 cm in aggregate submitted in toto in one cassette. CB/ ewPerformed.The interpretation of this case included the use of immunohistochemistry or special stains.Control Slides Examined: In-house known positive controls were evaluated along with the test tissue. These control slides run alongside of the patients sample show appropriate staining. Internal positive and negative controls when available are evaluated Immunohistochemistry technical testing was performed at [facility] where it was developed and its performance characteristics weredetermined. It has not been cleared or approved by the U.S. Food and Drug Administration. The FDA has determined that such clearance or approval is not necessary. The test is used for clinical purposes. It should not be regarded as investigational or for research. This laboratory is certified under the Clinical Laboratory Improvement Amendments of 1988 (CLIA- 88) as qualified to perform high complexity clinical laboratory testing.POCT- GLUCOSE [id number] 11:56:00 Test Item Value Reference Range Comments POC-GLUCOSE METER (BEAKER) 207 mg/dL 70-110 TESTED AT [address] (test lqdd=8416) [place] [id number] POCT-GLUCOSE [id number] 08:03:00 Test Item Value Reference Range Comments POC-GLUCOSE METER (BEAKER) 117 mg/dL 70-110 TESTED AT [address] (test geaf=4350) [place] [address] [id number] 06:09:00 Test Item Value Reference Range Comments MAGNESIUM (BEAKER) (test anco=985) 1.9 mg/dL 1.6-2.6 BASIC METABOLIC [id number] 06:09:00 Test Item Value Reference Range Comments SODIUM (BEAKER) (test 136 meq/L 136-145 jfjd=086) POTASSIUM (BEAKER) (test 3.8 meq/L 3.5-5.1 yoby=739) CHLORIDE (BEAKER) (test 100 meq/L 98-107 tdrk=683) CO2 (BEAKER) (test 29 meq/L 22-29 xqmg=603) BLOOD UREA NITROGEN 10 mg/dL 7-21 (BEAKER) (test umqd=822) CREATININE (BEAKER) (test 0.71 mg/dL 0.57-1.25 znpt=000) GLUCOSE RANDOM (BEAKER) 100 mg/dL 70-105 (test oywo=102) CALCIUM (BEAKER) (test 8.6 mg/dL 8.4-10.2 xvvq=326) EGFR (BEAKER) (test 84 mL/min/1.73 sq m ESTIMATED GFR IS NOT xjtk=4644) ACCURATE CREATININE CLEARANCE IN PREDICTING GLOMERULAR FILTRATION RATE. ESTIMATED GFR IS NOT APPLICABLE FOR DIALYSIS PATIENTS. HEPATIC FUNCTION [id number] 06:09:00 Test Item Value Reference Range Comments TOTAL PROTEIN (BEAKER) (test kwxw=826) 5.8 gm/dL 6.0-8.3 ALBUMIN (BEAKER) (test xnbi=0386) 3.3 g/dL 3.5-5.0 BILIRUBIN TOTAL (BEAKER) (test oagw=263) 1.5 mg/dL 0.2-1.2 BILIRUBIN DIRECT (BEAKER) (test nlys=667) 0.9 mg/dL 0.1-0.5 ALKALINE PHOSPHATASE (BEAKER) (test csrt=210) 70 U/L 40-150 AST (SGOT) (BEAKER) (test xsda=298) 38 U/L 5-34 ALT (SGPT) (BEAKER) (test uzfg=417) 44 U/L 6-55 [id number] 05:47:00 Test Item Value Reference Range Comments PROTIME (BEAKER) (test gqlk=458) 17.3 seconds 11.9-14.2 INR (BEAKER) (test khje=117) 1.5 <=5.9 PARTIAL THROMBOPLASTIN TIME (BEAKER) (test 36.2 seconds 22.5-36.0 xxbs=047) Effective 10/24/2018: PT Reference Range ChangeNew: 11.9-14.2 Previous: 11.7- 14.7RECOMMENDED COUMADIN/WARFARIN INR THERAPY RANGESSTANDARD DOSE: 2.0-3.0 Includes: PROPHYLAXIS for venous thrombosis, systemic embolization; TREATMENT for venous thrombosis and/or pulmonary embolus.HIGH RISK: Target INR is2.5-3.5 for patients wiht mechanical heart valves.CBC W/PLT COUNT & AUTO [id number] 05:46:00 Test Item Value Reference Range Comments WHITE BLOOD CELL COUNT (BEAKER) (test uhgs=801) 8.4 K/ L 3.5-10.5 RED BLOOD CELL COUNT (BEAKER) (test lfpy=942) 2.61 M/ L 3.93-5.22 HEMOGLOBIN (BEAKER) (test cqpk=016) 8.3 GM/DL 11.2-15.7 HEMATOCRIT (BEAKER) (test yzhy=262) 25.5 % 34.1-44.9 MEAN CORPUSCULAR VOLUME (BEAKER) (test vakb=330) 97.7 fL 79.4-94.8 MEAN CORPUSCULAR HEMOGLOBIN (BEAKER) (test 31.8 pg 25.6-32.2 ruze=053) MEAN CORPUSCULAR HEMOGLOBIN CONC (BEAKER) (test 32.5 GM/DL 32.2-35.5 hoty=941) RED CELL DISTRIBUTION WIDTH (BEAKER) (test 20.8 % 11.7-14.4 fkfi=978) PLATELET COUNT (BEAKER) (test djrd=736) 89 K/CU MM 150-450 MEAN PLATELET VOLUME (BEAKER) (test mnmn=911) 11.3 fL 9.4-12.3 NUCLEATED RED BLOOD CELLS (BEAKER) (test 0 /100 WBC 0-0 fkii=191) NEUTROPHILS RELATIVE PERCENT (BEAKER) (test 55 % gqgw=616) LYMPHOCYTES RELATIVE PERCENT (BEAKER) (test 27 % hqqn=362) MONOCYTES RELATIVE PERCENT (BEAKER) (test 16 % urnl=032) EOSINOPHILS RELATIVE PERCENT (BEAKER) (test 2 % bnwb=323) BASOPHILS RELATIVE PERCENT (BEAKER) (test 1 % qwyf=573) NEUTROPHILS ABSOLUTE COUNT (BEAKER) (test 4.57 K/ L 1.56-6.13 xxkt=995) LYMPHOCYTES ABSOLUTE COUNT (BEAKER) (test 2.23 K/ L 1.18-3.74 oghd=872) MONOCYTES ABSOLUTE COUNT (BEAKER) (test fyec=423) 1.30 K/ L 0.24-0.36 EOSINOPHILS ABSOLUTE COUNT (BEAKER) (test 0.18 K/ L 0.04-0.36 qaqu=929) BASOPHILS ABSOLUTE COUNT (BEAKER) (test floa=136) 0.04 K/ L 0.01-0.08 IMMATURE GRANULOCYTES-RELATIVE PERCENT (BEAKER) 1 % 0-1 (test stcr=3693) POCT-GLUCOSE [id number] 23:48:00 Test Item Value Reference Range Comments POC-GLUCOSE METER (BEAKER) 182 mg/dL 70-110 TESTED AT [address] (test hprw=4890) [place] [address] POCT-GLUCOSE [id number] 18:04:00 Test Item Value Reference Range Comments POC-GLUCOSE METER (BEAKER) 95 mg/dL 70-110 TESTED AT [address] (test izwb=7605) [place] [address] HEMOGLOBIN AND [id number] 17:04:00 Test Item Value Reference Range Comments HEMOGLOBIN (BEAKER) (test wahm=025) 8.8 GM/DL 11.2-15.7 HEMATOCRIT (BEAKER) (test mjgt=396) 27.4 % 34.1-44.9 BLOOD GAS, [id number] 15:45:00 Test Item Value Reference Range Comments PH ARTERIAL (BEAKER) (test bnnu=743) 7.55 7.35-7.45 PCO2 ARTERIAL (BEAKER) (test kwes=354) 31 mmHg 35-45 PO2 ARTERIAL (BEAKER) (test fkik=135) 62 mmHg 80-90 O2 SATURATION ARTERIAL (BEAKER) (test ntjn=472) 94.5 % 96.0-97.0 HCO3 ARTERIAL (BEAKER) (test sovi=378) 27 mmol/L 21-29 BASE EXCESS ARTERIAL (BEAKER) (test fhgy=854) 4.5 mmol/L -2.0-3.0 PATIENT TEMPERATURE (BEAKER) (test ljkn=3879) 37.0 C Please draw blood w/ patient on room air and sitting for at least 15 minutes prior to lab drawPOCT-GLUCOSE [id number] 11:29:00 Test Item Value Reference Range Comments POC-GLUCOSE METER (BEAKER) 205 mg/dL 70-110 TESTED AT [address] (test olnc=9258) [place] [address] RAD, CHEST, 1 VIEW, NON [id number] 08:46:00Reason for exam:->shortness of breathShould this be [...] MDReport Verified Date/Time: 12/14/2018 08:46:53 Reading Location: [facility] Radiology Reading Room Electronically signed by: DAPHNE BISHOP M.D. on 08:46 AMPOCT-GLUCOSE [id number] 08:21:00 Test Item Value Reference Range Comments POC-GLUCOSE METER (BEAKER) 107 mg/dL 70-110 TESTED AT [address] (test tiug=9671) [facility] [address] HEMOGLOBIN [id number] 08:02:00 Test Item Value Reference Range Comments HEMOGLOBIN A1C (BEAKER) (test jddb=429) 5.1 % 4.3-6.1 [id number] 07:51:00 Test Item Value Reference Range Comments MAGNESIUM (BEAKER) (test utwg=974) 1.8 mg/dL 1.6-2.6 BASIC METABOLIC [id number] 07:51:00 Test Item Value Reference Range Comments SODIUM (BEAKER) (test 137 meq/L 136-145 rqze=125) POTASSIUM (BEAKER) (test 3.3 meq/L 3.5-5.1 rymw=378) CHLORIDE (BEAKER) (test 100 meq/L 98-107 ezan=881) CO2 (BEAKER) (test 28 meq/L 22-29 porj=660) BLOOD UREA NITROGEN 11 mg/dL 7-21 (BEAKER) (test fppg=645) CREATININE (BEAKER) (test 0.65 mg/dL 0.57-1.25 bjhx=751) GLUCOSE RANDOM (BEAKER) 91 mg/dL 70-105 (test jhoh=801) CALCIUM (BEAKER) (test 8.3 mg/dL 8.4-10.2 vdve=274) EGFR (BEAKER) (test 93 mL/min/1.73 sq m ESTIMATED GFR IS NOT fqix=0102) ACCURATE CREATININE CLEARANCE IN PREDICTING GLOMERULAR FILTRATION RATE. ESTIMATED GFR IS NOT APPLICABLE FOR DIALYSIS PATIENTS. Specimen slightly ictericHEPATIC FUNCTION [id number] 07:51:00 Test Item Value Reference Range Comments TOTAL PROTEIN (BEAKER) (test vzvf=615) 5.4 gm/dL 6.0-8.3 ALBUMIN (BEAKER) (test ymdq=4007) 3.2 g/dL 3.5-5.0 BILIRUBIN TOTAL (BEAKER) (test kppy=924) 1.9 mg/dL 0.2-1.2 BILIRUBIN DIRECT (BEAKER) (test upoc=257) 0.9 mg/dL 0.1-0.5 ALKALINE PHOSPHATASE (BEAKER) (test xubp=842) 63 U/L 40-150 AST (SGOT) (BEAKER) (test jhtv=708) 40 U/L 5-34 ALT (SGPT) (BEAKER) (test ccnd=828) 48 U/L 6-55 Specimen slightly ictericCBC W/PLT COUNT & AUTO [id number] 05:44 :00 Test Item Value Reference Range Comments WHITE BLOOD CELL COUNT (BEAKER) (test skya=271) 8.1 K/ L 3.5-10.5 RED BLOOD CELL COUNT (BEAKER) (test ffga=345) 2.55 M/ L 3.93-5.22 HEMOGLOBIN (BEAKER) (test yovj=630) 7.9 GM/DL 11.2-15.7 HEMATOCRIT (BEAKER) (test eytj=732) 25.1 % 34.1-44.9 MEAN CORPUSCULAR VOLUME (BEAKER) (test mkwx=373) 98.4 fL 79.4-94.8 MEAN CORPUSCULAR HEMOGLOBIN (BEAKER) (test 31.0 pg 25.6-32.2 pvpq=650) MEAN CORPUSCULAR HEMOGLOBIN CONC (BEAKER) (test 31.5 GM/DL 32.2-35.5 qxkb=403) RED CELL DISTRIBUTION WIDTH (BEAKER) (test 21.1 % 11.7-14.4 ymrw=707) PLATELET COUNT (BEAKER) (test agjh=058) 81 K/CU MM 150-450 MEAN PLATELET VOLUME (BEAKER) (test iaqf=155) 12.1 fL 9.4-12.3 NUCLEATED RED BLOOD CELLS (BEAKER) (test 0 /100 WBC 0-0 bxib=598) NEUTROPHILS RELATIVE PERCENT (BEAKER) (test 55 % efci=942) LYMPHOCYTES RELATIVE PERCENT (BEAKER) (test 28 % cwki=464) MONOCYTES RELATIVE PERCENT (BEAKER) (test 13 % yqts=386) EOSINOPHILS RELATIVE PERCENT (BEAKER) (test 3 % awmm=123) BASOPHILS RELATIVE PERCENT (BEAKER) (test 1 % vnav=055) NEUTROPHILS ABSOLUTE COUNT (BEAKER) (test 4.46 K/ L 1.56-6.13 yprq=870) LYMPHOCYTES ABSOLUTE COUNT (BEAKER) (test 2.25 K/ L 1.18-3.74 bhof=805) MONOCYTES ABSOLUTE COUNT (BEAKER) (test nrhe=786) 1.09 K/ L 0.24-0.36 EOSINOPHILS ABSOLUTE COUNT (BEAKER) (test 0.22 K/ L 0.04-0.36 ylvy=927) BASOPHILS ABSOLUTE COUNT (BEAKER) (test hwaz=349) 0.06 K/ L 0.01-0.08 IMMATURE GRANULOCYTES-RELATIVE PERCENT (BEAKER) 1 % 0-1 (test zgyl=9182) [id number] 05:41:00 Test Item Value Reference Range Comments PROTIME (BEAKER) (test jxjv=642) 18.5 seconds 11.9-14.2 INR (BEAKER) (test cidi=546) 1.6 <=5.9 PARTIAL THROMBOPLASTIN TIME (BEAKER) (test 38.0 seconds 22.5-36.0 dnne=545) Effective 10/24/2018: PT Reference Range ChangeNew: 11.9-14.2 Previous: 11.7- 14.7RECOMMENDED COUMADIN/WARFARIN INR THERAPY RANGESSTANDARD DOSE: 2.0-3.0 Includes: PROPHYLAXIS for venous thrombosis, systemic embolization; TREATMENT for venous thrombosis and/or pulmonary embolus.HIGH RISK: Target INR is2.5-3.5 for patients wiht mechanical heart valves.POCT-GLUCOSE [id number] 00:43:00 Test Item Value Reference Range Comments POC-GLUCOSE METER (BEAKER) 131 mg/dL 70-110 TESTED AT [address] (test ujbh=8564) [facility] [address] POCT-GLUCOSE [id number] 17:27:00 Test Item Value Reference Range Comments POC-GLUCOSE METER (BEAKER) 133 mg/dL 70-110 TESTED AT [address] (test ibha=6888) [facility] [address] POCT-GLUCOSE [id number] 14:27:00 Test Item Value Reference Range Comments POC-GLUCOSE METER (BEAKER) 136 mg/dL 70-110 TESTED AT [address] (test yuoj=3048) [facility] [address] POCT-GLUCOSE [id number] 12:53:00 Test Item Value Reference Range Comments POC-GLUCOSE METER (BEAKER) 207 mg/dL 70-110 TESTED AT [address] (test qjhf=9096) [place] [address] [id number] 07:55:00 Test Item Value Reference Range Comments PHOSPHORUS (BEAKER) (test qtve=842) 2.9 mg/dL 2.3-4.7 [id number] 07:55:00 Test Item Value Reference Range Comments MAGNESIUM (BEAKER) (test bvfh=304) 1.9 mg/dL 1.6-2.6 BASIC METABOLIC [id number] 07:55:00 Test Item Value Reference Range Comments SODIUM (BEAKER) (test 138 meq/L 136-145 raag=330) POTASSIUM (BEAKER) (test 3.5 meq/L 3.5-5.1 gtoo=871) CHLORIDE (BEAKER) (test 103 meq/L 98-107 uqjt=278) CO2 (BEAKER) (test 27 meq/L 22-29 uinm=042) BLOOD UREA NITROGEN 14 mg/dL 7-21 (BEAKER) (test ikzr=652) CREATININE (BEAKER) (test 0.72 mg/dL 0.57-1.25 jpxc=253) GLUCOSE RANDOM (BEAKER) 112 mg/dL 70-105 (test vexw=947) CALCIUM (BEAKER) (test 8.8 mg/dL 8.4-10.2 wisk=838) EGFR (BEAKER) (test 83 mL/min/1.73 sq m ESTIMATED GFR IS NOT wpse=7836) ACCURATE CREATININE CLEARANCE IN PREDICTING GLOMERULAR FILTRATION RATE. ESTIMATED GFR IS NOT APPLICABLE FOR DIALYSIS PATIENTS. Specimen slightly ictericHEPATIC FUNCTION [id number] 07:55:00 Test Item Value Reference Range Comments TOTAL PROTEIN (BEAKER) (test bkku=750) 6.0 gm/dL 6.0-8.3 ALBUMIN (BEAKER) (test djqm=5859) 3.6 g/dL 3.5-5.0 BILIRUBIN TOTAL (BEAKER) (test gvob=500) 2.1 mg/dL 0.2-1.2 BILIRUBIN DIRECT (BEAKER) (test fmgh=035) 1.0 mg/dL 0.1-0.5 ALKALINE PHOSPHATASE (BEAKER) (test jzhn=059) 67 U/L 40-150 AST (SGOT) (BEAKER) (test kzoh=060) 44 U/L 5-34 ALT (SGPT) (BEAKER) (test lbks=765) 64 U/L 6-55 Specimen slightly ictericPOCT-GLUCOSE [id number] 07:52:00 Test Item Value Reference Range Comments POC-GLUCOSE METER (BEAKER) 117 mg/dL 70-110 TESTED AT [facility] [address] [facility] (test itrc=0564) [facility] [address] CBC W/PLT COUNT & AUTO [id number] 06:01:00 Test Item Value Reference Range Comments WHITE BLOOD CELL COUNT (BEAKER) (test uxks=967) 10.1 K/ L 3.5-10.5 RED BLOOD CELL COUNT (BEAKER) (test lrvx=888) 2.79 M/ L 3.93-5.22 HEMOGLOBIN (BEAKER) (test lcxp=113) 8.6 GM/DL 11.2-15.7 HEMATOCRIT (BEAKER) (test jjil=083) 28.0 % 34.1-44.9 MEAN CORPUSCULAR VOLUME (BEAKER) (test rsvs=456) 100.4 fL 79.4-94.8 MEAN CORPUSCULAR HEMOGLOBIN (BEAKER) (test 30.8 pg 25.6-32.2 atdf=754) MEAN CORPUSCULAR HEMOGLOBIN CONC (BEAKER) (test 30.7 GM/DL 32.2-35.5 vzkr=140) RED CELL DISTRIBUTION WIDTH (BEAKER) (test 21.1 % 11.7-14.4 etrn=279) PLATELET COUNT (BEAKER) (test eido=767) 89 K/CU MM 150-450 MEAN PLATELET VOLUME (BEAKER) (test ivtn=571) 11.6 fL 9.4-12.3 NUCLEATED RED BLOOD CELLS (BEAKER) (test 0 /100 WBC 0-0 hjxk=020) NEUTROPHILS RELATIVE PERCENT (BEAKER) (test 65 % rivh=294) LYMPHOCYTES RELATIVE PERCENT (BEAKER) (test 19 % yeyf=913) MONOCYTES RELATIVE PERCENT (BEAKER) (test 13 % tiij=077) EOSINOPHILS RELATIVE PERCENT (BEAKER) (test 2 % wbvo=260) BASOPHILS RELATIVE PERCENT (BEAKER) (test 1 % fjez=795) NEUTROPHILS ABSOLUTE COUNT (BEAKER) (test 6.56 K/ L 1.56-6.13 dcjh=598) LYMPHOCYTES ABSOLUTE COUNT (BEAKER) (test 1.87 K/ L 1.18-3.74 tamg=070) MONOCYTES ABSOLUTE COUNT (BEAKER) (test jqkj=895) 1.34 K/ L 0.24-0.36 EOSINOPHILS ABSOLUTE COUNT (BEAKER) (test 0.23 K/ L 0.04-0.36 ehbr=275) BASOPHILS ABSOLUTE COUNT (BEAKER) (test vjxi=190) 0.06 K/ L 0.01-0.08 IMMATURE GRANULOCYTES-RELATIVE PERCENT (BEAKER) 1 % 0-1 (test sygl=9299) PT/[id number] 05:56:00 Test Item Value Reference Range Comments PROTIME (BEAKER) (test rzjx=637) 18.7 seconds 11.9-14.2 INR (BEAKER) (test twso=872) 1.7 <=5.9 PARTIAL THROMBOPLASTIN TIME (BEAKER) (test 39.7 seconds 22.5-36.0 olme=286) Effective 10/24/2018: PT Reference Range ChangeNew: 11.9-14.2 Previous: 11.7- 14.7RECOMMENDED COUMADIN/WARFARIN INR THERAPY RANGESSTANDARD DOSE: 2.0-3.0 Includes: PROPHYLAXIS for venous thrombosis, systemic embolization; TREATMENT for venous thrombosis and/or pulmonary embolus.HIGH RISK: Target INR is2.5-3.5 for patients wiht mechanical heart valves.BLOOD [id number] 02:01:00 Test Item Value Reference Range Comments CULTURE (BEAKER) (test nzkb=9075) No growth in 5 days BLOOD [id number] 02:01:00 Test Item Value Reference Range Comments CULTURE (BEAKER) (test ihfk=6924) No growth in 5 days POCT-GLUCOSE [id number] 00:06:00 Test Item Value Reference Range Comments POC-GLUCOSE METER (BEAKER) 118 mg/dL 70-110 TESTED AT [facility] [address] [facility] (test hqsh=5627) [facility] [address] POCT-GLUCOSE [id number] 17:25:00 Test Item Value Reference Range Comments POC-GLUCOSE METER (BEAKER) 105 mg/dL 70-110 TESTED AT [address] (test wtse=1611) [place] [id number] HEMOGLOBIN AND [id number] 14:25:00 Test Item Value Reference Range Comments HEMOGLOBIN (BEAKER) (test bvnf=383) 8.9 GM/DL 11.2-15.7 HEMATOCRIT (BEAKER) (test pbvo=092) 28.5 % 34.1-44.9 Contact hospitalist if Hgb <7.0RAD, ABDOMEN/KUB, 1 VIEW [id number] 14:09: 00Reason for exam:->abd distentionFINAL REPORT Abdomen , one view CLINICAL INDICATION: Abdominal distention COMPARISON: 12/10/2018 IMPRESSION:Dilated small bowel loops are again noted throughout the abdomen, similar to prior. There is also gaseous distention of the ascending and transverse colon. No gas is noted in the sigmoid colon or rectum. Overall, the bowel gas pattern is unchanged. Signed: Alex Jenkins MDRepmiss[facility] bapt[facility] Verified Date/ Time: 12/12/2018 14:09:05 Reading Location: [address] Consult Reading Room RAD, CHEST, 1 VIEW, NON [id number] 14:06:00Reason for exam:->hypoxiaShould this be performed at the bedside?->YesFINAL REPORT Chest, portable AP view History: Hypoxia Comparison: 12/07/2018 IMPRESSION: The heart is stable in size. There are low lung volumes. Bibasilar atelectasis is present. There is a small right pleural effusion. There is no pneumothorax. Left upper extremity PICC tip terminates in the right atrium. Signed: Alex Jenkins MDReport Verified Date/Time: 12/12/2018 14:06:55 Reading Location: [facility] [id number] Consult Reading Room POCT-GLUCOSE [id number] 12:31:00 Test Item Value Reference Range Comments POC-GLUCOSE METER (BEAKER) 194 mg/dL 70-110 TESTED AT [facility] [address] [facility] (test fnfw=0666) [facility] [address] POCT-GLUCOSE [id number] 07:44:00 Test Item Value Reference Range Comments POC-GLUCOSE METER (BEAKER) 116 mg/dL 70-110 TESTED AT [place] [id number] [facility] (test fkqt=9736) [facility] [address] [id number] 06:16:00 Test Item Value Reference Range Comments PHOSPHORUS (BEAKER) (test blzn=386) 2.8 mg/dL 2.3-4.7 [id number] 06:16:00 Test Item Value Reference Range Comments MAGNESIUM (BEAKER) (test hjkc=638) 1.9 mg/dL 1.6-2.6 BASIC METABOLIC [id number] 06:16:00 Test Item Value Reference Range Comments SODIUM (BEAKER) (test 140 meq/L 136-145 vlds=756) POTASSIUM (BEAKER) (test 3.8 meq/L 3.5-5.1 exub=701) CHLORIDE (BEAKER) (test 106 meq/L 98-107 sgpg=086) CO2 (BEAKER) (test 29 meq/L 22-29 qdic=425) BLOOD UREA NITROGEN 16 mg/dL 7-21 (BEAKER) (test nzhb=588) CREATININE (BEAKER) (test 0.73 mg/dL 0.57-1.25 jccv=179) GLUCOSE RANDOM (BEAKER) 101 mg/dL 70-105 (test msqh=956) CALCIUM (BEAKER) (test 8.8 mg/dL 8.4-10.2 lhrg=869) EGFR (BEAKER) (test 81 mL/min/1.73 sq m ESTIMATED GFR IS NOT brqt=3338) ACCURATE CREATININE CLEARANCE IN PREDICTING GLOMERULAR FILTRATION RATE. ESTIMATED GFR IS NOT APPLICABLE FOR DIALYSIS PATIENTS. Specimen slightly ictericHEPATIC FUNCTION [id number] 06:16:00 Test Item Value Reference Range Comments TOTAL PROTEIN (BEAKER) (test auow=413) 5.5 gm/dL 6.0-8.3 ALBUMIN (BEAKER) (test bdcx=9675) 3.6 g/dL 3.5-5.0 BILIRUBIN TOTAL (BEAKER) (test luot=700) 2.1 mg/dL 0.2-1.2 BILIRUBIN DIRECT (BEAKER) (test ofuk=228) 1.0 mg/dL 0.1-0.5 ALKALINE PHOSPHATASE (BEAKER) (test kbem=619) 52 U/L 40-150 AST (SGOT) (BEAKER) (test pwqs=908) 39 U/L 5-34 ALT (SGPT) (BEAKER) (test deke=712) 70 U/L 6-55 Specimen slightly ictericPT/[id number] 05:33:00 Test Item Value Reference Range Comments PROTIME (BEAKER) (test ream=067) 19.9 seconds 11.9-14.2 INR (BEAKER) (test nrbp=341) 1.8 <=5.9 PARTIAL THROMBOPLASTIN TIME (BEAKER) (test 38.2 seconds 22.5-36.0 oijh=563) Effective 10/24/2018: PT Reference Range ChangeNew: 11.9-14.2 Previous: 11.7- 14.7RECOMMENDED COUMADIN/WARFARIN INR THERAPY RANGESSTANDARD DOSE: 2.0-3.0 Includes: PROPHYLAXIS for venous thrombosis, systemic embolization; TREATMENT for venous thrombosis and/or pulmonary embolus.HIGH RISK: Target INR is2.5-3.5 for patients wiht mechanical heart valves.CBC W/PLT COUNT & AUTO [id number] 05:21:00 Test Item Value Reference Range Comments WHITE BLOOD CELL COUNT (BEAKER) (test fvrv=316) 8.7 K/ L 3.5-10.5 RED BLOOD CELL COUNT (BEAKER) (test bscj=698) 2.44 M/ L 3.93-5.22 HEMOGLOBIN (BEAKER) (test uqoc=065) 7.5 GM/DL 11.2-15.7 HEMATOCRIT (BEAKER) (test gjmt=636) 24.5 % 34.1-44.9 MEAN CORPUSCULAR VOLUME (BEAKER) (test texw=378) 100.4 fL 79.4-94.8 MEAN CORPUSCULAR HEMOGLOBIN (BEAKER) (test 30.7 pg 25.6-32.2 wayf=974) MEAN CORPUSCULAR HEMOGLOBIN CONC (BEAKER) (test 30.6 GM/DL 32.2-35.5 gyoy=852) RED CELL DISTRIBUTION WIDTH (BEAKER) (test 21.3 % 11.7-14.4 cims=167) PLATELET COUNT (BEAKER) (test ncez=164) 83 K/CU MM 150-450 MEAN PLATELET VOLUME (BEAKER) (test bdwd=367) 11.5 fL 9.4-12.3 NUCLEATED RED BLOOD CELLS (BEAKER) (test 0 /100 WBC 0-0 hmnr=208) NEUTROPHILS RELATIVE PERCENT (BEAKER) (test 52 % huow=599) LYMPHOCYTES RELATIVE PERCENT (BEAKER) (test 27 % omjn=472) MONOCYTES RELATIVE PERCENT (BEAKER) (test 16 % yfcj=560) EOSINOPHILS RELATIVE PERCENT (BEAKER) (test 4 % ekvi=334) BASOPHILS RELATIVE PERCENT (BEAKER) (test 1 % macp=753) NEUTROPHILS ABSOLUTE COUNT (BEAKER) (test 4.49 K/ L 1.56-6.13 tnsj=915) LYMPHOCYTES ABSOLUTE COUNT (BEAKER) (test 2.36 K/ L 1.18-3.74 sblo=040) MONOCYTES ABSOLUTE COUNT (BEAKER) (test irap=330) 1.41 K/ L 0.24-0.36 EOSINOPHILS ABSOLUTE COUNT (BEAKER) (test 0.34 K/ L 0.04-0.36 rdkt=045) BASOPHILS ABSOLUTE COUNT (BEAKER) (test apro=882) 0.05 K/ L 0.01-0.08 IMMATURE GRANULOCYTES-RELATIVE PERCENT (BEAKER) 1 % 0-1 (test ufhe=0292) POCT-GLUCOSE [id number] 00:10:00 Test Item Value Reference Range Comments POC-GLUCOSE METER (BEAKER) 127 mg/dL 70-110 TESTED AT [facility] [id number] [facility] (test xink=2440) [facility] [address] POCT-GLUCOSE [id number] 17:40:00 Test Item Value Reference Range Comments POC-GLUCOSE METER (BEAKER) 165 mg/dL 70-110 TESTED AT [place] [id number] [facility] (test zyma=5540) [facility] [address] POCT-GLUCOSE [id number] 12:35:00 Test Item Value Reference Range Comments POC-GLUCOSE METER (BEAKER) 190 mg/dL 70-110 TESTED AT [address] (test slql=7564) [facility] [id number] POCT-GLUCOSE [id number] 08:29:00 Test Item Value Reference Range Comments POC-GLUCOSE METER (BEAKER) 173 mg/dL 70-110 TESTED AT [address] (test rrky=1976) [facility] [address] CBC W/PLT COUNT & AUTO [id number] 05:21:00 Test Item Value Reference Range Comments WHITE BLOOD CELL COUNT (BEAKER) (test jarb=574) 9.4 K/ L 3.5-10.5 RED BLOOD CELL COUNT (BEAKER) (test qzby=296) 2.86 M/ L 3.93-5.22 HEMOGLOBIN (BEAKER) (test zohw=504) 8.9 GM/DL 11.2-15.7 HEMATOCRIT (BEAKER) (test zoqj=179) 28.9 % 34.1-44.9 MEAN CORPUSCULAR VOLUME (BEAKER) (test jaiy=058) 101.0 fL 79.4-94.8 MEAN CORPUSCULAR HEMOGLOBIN (BEAKER) (test 31.1 pg 25.6-32.2 rcxr=517) MEAN CORPUSCULAR HEMOGLOBIN CONC (BEAKER) (test 30.8 GM/DL 32.2-35.5 hrzi=549) RED CELL DISTRIBUTION WIDTH (BEAKER) (test 21.9 % 11.7-14.4 thln=843) PLATELET COUNT (BEAKER) (test xebb=583) 118 K/CU MM 150-450 MEAN PLATELET VOLUME (BEAKER) (test kedj=283) 11.2 fL 9.4-12.3 NUCLEATED RED BLOOD CELLS (BEAKER) (test 1 /100 WBC 0-0 ykmz=903) NEUTROPHILS RELATIVE PERCENT (BEAKER) (test 55 % zdtn=057) LYMPHOCYTES RELATIVE PERCENT (BEAKER) (test 24 % rhdp=123) MONOCYTES RELATIVE PERCENT (BEAKER) (test 16 % dwcz=361) EOSINOPHILS RELATIVE PERCENT (BEAKER) (test 3 % fpnb=404) BASOPHILS RELATIVE PERCENT (BEAKER) (test 1 % ipxl=682) NEUTROPHILS ABSOLUTE COUNT (BEAKER) (test 5.22 K/ L 1.56-6.13 jukg=194) LYMPHOCYTES ABSOLUTE COUNT (BEAKER) (test 2.30 K/ L 1.18-3.74 dgjs=640) MONOCYTES ABSOLUTE COUNT (BEAKER) (test 1.50 K/ L 0.24-0.36 umoz=840) EOSINOPHILS ABSOLUTE COUNT (BEAKER) (test 0.30 K/ L 0.04-0.36 qpxv=107) BASOPHILS ABSOLUTE COUNT (BEAKER) (test 0.07 K/ L 0.01-0.08 atfj=535) IMMATURE GRANULOCYTES-RELATIVE PERCENT (BEAKER) 1 % 0-1 (test mcaw=7323) [id number] 05:18:00 Test Item Value Reference Range Comments PHOSPHORUS (BEAKER) (test szgk=568) 2.1 mg/dL 2.3-4.7 [id number] 05:18:00 Test Item Value Reference Range Comments MAGNESIUM (BEAKER) (test bkud=798) 2.2 mg/dL 1.6-2.6 BASIC METABOLIC [id number] 05:18:00 Test Item Value Reference Range Comments SODIUM (BEAKER) (test 143 meq/L 136-145 fepl=874) POTASSIUM (BEAKER) (test 3.8 meq/L 3.5-5.1 ymun=516) CHLORIDE (BEAKER) (test 110 meq/L 98-107 tong=884) CO2 (BEAKER) (test 27 meq/L 22-29 tdve=191) BLOOD UREA NITROGEN 19 mg/dL 7-21 (BEAKER) (test lnls=959) CREATININE (BEAKER) (test 0.75 mg/dL 0.57-1.25 hxfb=443) GLUCOSE RANDOM (BEAKER) 118 mg/dL 70-105 (test vmem=691) CALCIUM (BEAKER) (test 8.8 mg/dL 8.4-10.2 mudh=743) EGFR (BEAKER) (test 79 mL/min/1.73 sq m ESTIMATED GFR IS NOT axfu=9737) ACCURATE CREATININE CLEARANCE IN PREDICTING GLOMERULAR FILTRATION RATE. ESTIMATED GFR IS NOT APPLICABLE FOR DIALYSIS PATIENTS. HEPATIC FUNCTION [id number] 05:18:00 Test Item Value Reference Range Comments TOTAL PROTEIN (BEAKER) (test gjwl=620) 5.6 gm/dL 6.0-8.3 ALBUMIN (BEAKER) (test ylzc=1713) 3.3 g/dL 3.5-5.0 BILIRUBIN TOTAL (BEAKER) (test hhti=063) 1.8 mg/dL 0.2-1.2 BILIRUBIN DIRECT (BEAKER) (test gdsh=950) 0.9 mg/dL 0.1-0.5 ALKALINE PHOSPHATASE (BEAKER) (test glcf=171) 69 U/L 40-150 AST (SGOT) (BEAKER) (test glre=641) 51 U/L 5-34 ALT (SGPT) (BEAKER) (test trbd=080) 110 U/L 6-55 [id number] 05:05:00 Test Item Value Reference Range Comments PROTIME (BEAKER) (test opjf=469) 19.4 seconds 11.9-14.2 INR (BEAKER) (test wfst=661) 1.7 <=5.9 PARTIAL THROMBOPLASTIN TIME (BEAKER) (test 35.9 seconds 22.5-36.0 uxul=024) Effective 10/24/2018: PT Reference Range ChangeNew: 11.9-14.2 Previous: 11.7- 14.7RECOMMENDED COUMADIN/WARFARIN INR THERAPY RANGESSTANDARD DOSE: 2.0-3.0 Includes: PROPHYLAXIS for venous thrombosis, systemic embolization; TREATMENT for venous thrombosis and/or pulmonary embolus.HIGH RISK: Target INR is2.5-3.5 for patients wiht mechanical heart valves.[id number] 05:05:00 Test Item Value Reference Range Comments FIBRINOGEN LEVEL (BEAKER) (test cmca=896) 184 mg/dl 225-434 LACTIC ACID, [id number] 05:02:00 Test Item Value Reference Range Comments LACTATE BLOOD VENOUS (2) (BEAKER) (test 1.8 mmol/L 0.5-2.2 krna=9398) POCT-GLUCOSE [id number] 22:06:00 Test Item Value Reference Range Comments POC-GLUCOSE METER (BEAKER) 295 mg/dL 70-110 TESTED AT [facility] [address] [facility] (test oylx=3612) [facility] [address] POCT-GLUCOSE [id number] 18:38:00 Test Item Value Reference Range Comments POC-GLUCOSE METER (BEAKER) 181 mg/dL 70-110 TESTED AT [place] [id number] [facility] (test xorj=1945) [facility] [address] BLOOD [id number] 16:53:00 Test Item Value Reference Range Comments CULTURE (BEAKER) From Anaerobic Bottle Only (test tfys=5248) Coagulase negative Staphylococcus GRAM STAIN RESULT From anaerobic bottle (BEAKER) (test only: gram positive rsmk=3418) cocci in clusters POCT-GLUCOSE [id number] 13:01:00 Test Item Value Reference Range Comments POC-GLUCOSE METER (BEAKER) 143 mg/dL 70-110 TESTED AT [address] (test ciyf=5882) [facility] [address] RAD, ABDOMEN/KUB, 1 VIEW [id number] 08:18:00Reason for exam:->ileusFINAL REPORT INDICATION:Ileus. COMPARISON: December [...] MDReport Verified Date/Time: 12/10/2018 08:18:25 Reading Location: [facility] Diagnostic Imaging Reading Room - [place] [address] CBC W/PLT COUNT & AUTO [id number] 07:36:00 Test Item Value Reference Range Comments WHITE BLOOD CELL COUNT (BEAKER) (test qonc=691) 10.7 K/ L 3.5-10.5 RED BLOOD CELL COUNT (BEAKER) (test txtr=940) 2.84 M/ L 3.93-5.22 HEMOGLOBIN (BEAKER) (test rqnz=369) 8.7 GM/DL 11.2-15.7 HEMATOCRIT (BEAKER) (test gpwn=224) 28.5 % 34.1-44.9 MEAN CORPUSCULAR VOLUME (BEAKER) (test goqg=024) 100.4 fL 79.4-94.8 MEAN CORPUSCULAR HEMOGLOBIN (BEAKER) (test 30.6 pg 25.6-32.2 qpbr=227) MEAN CORPUSCULAR HEMOGLOBIN CONC (BEAKER) (test 30.5 GM/DL 32.2-35.5 ythw=939) RED CELL DISTRIBUTION WIDTH (BEAKER) (test 22.5 % 11.7-14.4 vzfg=665) PLATELET COUNT (BEAKER) (test ozvf=164) 120 K/CU MM 150-450 MEAN PLATELET VOLUME (BEAKER) (test vqxx=865) 11.5 fL 9.4-12.3 NUCLEATED RED BLOOD CELLS (BEAKER) (test 1 /100 WBC 0-0 kkfx=037) (CELLAVISION MANUAL DIFF)2018-12-10 07:36:00 Test Item Value Reference Range Comments NEUTROPHILS - REL (CELLAVISION)(BEAKER) (test 81 % crdu=1214) LYMPHOCYTES - REL (CELLAVISION)(BEAKER) (test 9 % sqqu=3270) MONOCYTES - REL (CELLAVISION)(BEAKER) (test 8 % wmra=0999) EOSINOPHILS - REL (CELLAVISION)(BEAKER) (test 1 % fdlr=8821) BASOPHILS - REL (CELLAVISION)(BEAKER) (test 1 % qayz=1992) NEUTROPHILS - ABS (CELLAVISION)(BEAKER) (test 8.67 K/ul 1.56-6.13 abus=6727) LYMPHOCYTES - ABS (CELLAVISION)(BEAKER) (test 0.96 K/ul 1.18-3.74 xjgx=0162) MONOCYTES - ABS (CELLAVISION)(BEAKER) (test 0.86 K/uL 0.24-0.36 mwjs=9267) EOSINOPHILS - ABS (CELLAVISION)(BEAKER) (test 0.11 K/uL 0.04-0.36 vlvt=0667) BASOPHILS - ABS (CELLAVISION)(BEAKER) (test 0.11 K/uL 0.01-0.08 mibm=6917) TOTAL COUNTED (BEAKER) (test fafc=9534) 100 MANUAL NRBC PER 100 CELLS (BEAKER) (test 1 /100 WBC 0-0 sqtq=8046) WBC MORPHOLOGY (BEAKER) (test qqtq=906) Normal PLT MORPHOLOGY (BEAKER) (test zjdr=941) Normal POLYCHROMATOPHILLIC RBCS(BEAKER) (test qtlw=995) 2+ moderate HYPOCHROMIA (BEAKER) (test nugw=507) 1+ few ARTIFACT (CELLAVISION)(BEAKER) (test ilsp=9500) Present PLATELET CONCENTRATION (CELLAVISION)(BEAKER) Decreased (test zizv=5520) Received comment: User comments: Slide comments:[id number] 05:18:00 Test Item Value Reference Range Comments PHOSPHORUS (BEAKER) (test nwxs=921) 2.5 mg/dL 2.3-4.7 [id number] 05:18:00 Test Item Value Reference Range Comments MAGNESIUM (BEAKER) (test mvbt=151) 2.2 mg/dL 1.6-2.6 BASIC METABOLIC [id number] 05:18:00 Test Item Value Reference Range Comments SODIUM (BEAKER) (test 146 meq/L 136-145 nogz=284) POTASSIUM (BEAKER) (test 3.9 meq/L 3.5-5.1 arxh=698) CHLORIDE (BEAKER) (test 113 meq/L 98-107 azfy=310) CO2 (BEAKER) (test 26 meq/L 22-29 lumj=290) BLOOD UREA NITROGEN 19 mg/dL 7-21 (BEAKER) (test mwlu=890) CREATININE (BEAKER) (test 0.68 mg/dL 0.57-1.25 dnbg=951) GLUCOSE RANDOM (BEAKER) 119 mg/dL 70-105 (test fpju=059) CALCIUM (BEAKER) (test 8.4 mg/dL 8.4-10.2 rfxn=433) EGFR (BEAKER) (test 88 mL/min/1.73 sq m ESTIMATED GFR IS NOT cjer=2204) ACCURATE CREATININE CLEARANCE IN PREDICTING GLOMERULAR FILTRATION RATE. ESTIMATED GFR IS NOT APPLICABLE FOR DIALYSIS PATIENTS. HEPATIC FUNCTION [id number] 05:18:00 Test Item Value Reference Range Comments TOTAL PROTEIN (BEAKER) (test nrkv=551) 5.5 gm/dL 6.0-8.3 ALBUMIN (BEAKER) (test dhlm=2250) 3.3 g/dL 3.5-5.0 BILIRUBIN TOTAL (BEAKER) (test fnjn=343) 2.0 mg/dL 0.2-1.2 BILIRUBIN DIRECT (BEAKER) (test ykrz=548) 1.0 mg/dL 0.1-0.5 ALKALINE PHOSPHATASE (BEAKER) (test wlpa=106) 65 U/L 40-150 AST (SGOT) (BEAKER) (test yrti=622) 52 U/L 5-34 ALT (SGPT) (BEAKER) (test huqo=286) 136 U/L 6-55 LACTIC ACID, [id number] 05:00:00 Test Item Value Reference Range Comments LACTATE BLOOD VENOUS (2) (BEAKER) (test 2.0 mmol/L 0.5-2.2 qcph=9569) [id number] 04:39:00 Test Item Value Reference Range Comments FIBRINOGEN LEVEL (BEAKER) (test jled=876) 221 mg/dl 225-434 PT/[id number] 04:39:00 Test Item Value Reference Range Comments PROTIME (BEAKER) (test kbob=178) 17.5 seconds 11.9-14.2 INR (BEAKER) (test ljdo=379) 1.5 <=5.9 PARTIAL THROMBOPLASTIN TIME (BEAKER) (test 37.8 seconds 22.5-36.0 ginu=830) Effective 10/24/2018: PT Reference Range ChangeNew: 11.9-14.2 Previous: 11.7- 14.7RECOMMENDED COUMADIN/WARFARIN INR THERAPY RANGESSTANDARD DOSE: 2.0-3.0 Includes: PROPHYLAXIS for venous thrombosis, systemic embolization; TREATMENT for venous thrombosis and/or pulmonary embolus.HIGH RISK: Target INR is2.5-3.5 for patients wiht mechanical heart valves.U/S, ABDOMINAL, [id number] 01: 07:00Reason for exam:->ASCITES EVAL Should this [...] FLOR WILLIS MD on12/10/2018 01:07 AMPOCT- GLUCOSE [id number] 00:25:00 Test Item Value Reference Range Comments POC-GLUCOSE METER (BEAKER) 134 mg/dL 70-110 TESTED AT [address] (test etfj=5360) [place] [address] BLOOD [id number] 20:01:00 Test Item Value Reference Range Comments CULTURE (BEAKER) (test yark=2142) No growth in 5 days HEMOGLOBIN AND [id number] 17:57:00 Test Item Value Reference Range Comments HEMOGLOBIN (BEAKER) (test mlun=233) 8.8 GM/DL 11.2-15.7 HEMATOCRIT (BEAKER) (test gcfz=898) 28.2 % 34.1-44.9 POCT-GLUCOSE [id number] 17:57:00 Test Item Value Reference Range Comments POC-GLUCOSE METER (BEAKER) 175 mg/dL 70-110 TESTED AT [address] (test djcg=5251) [place] [address] POCT-GLUCOSE [id number] 13:23:00 Test Item Value Reference Range Comments POC-GLUCOSE METER (BEAKER) 110 mg/dL 70-110 TESTED AT [address] (test ykge=7996) [place] [address] CBC W/PLT COUNT & AUTO [id number] 09:54:00 Test Item Value Reference Range Comments WHITE BLOOD CELL COUNT (BEAKER) (test kkse=779) 9.9 K/ L 3.5-10.5 RED BLOOD CELL COUNT (BEAKER) (test dban=874) 2.64 M/ L 3.93-5.22 HEMOGLOBIN (BEAKER) (test ytnr=214) 8.3 GM/DL 11.2-15.7 HEMATOCRIT (BEAKER) (test cxxn=387) 26.2 % 34.1-44.9 MEAN CORPUSCULAR VOLUME (BEAKER) (test xwve=457) 99.2 fL 79.4-94.8 MEAN CORPUSCULAR HEMOGLOBIN (BEAKER) (test 31.4 pg 25.6-32.2 tcsl=722) MEAN CORPUSCULAR HEMOGLOBIN CONC (BEAKER) (test 31.7 GM/DL 32.2-35.5 wibw=339) RED CELL DISTRIBUTION WIDTH (BEAKER) (test 22.9 % 11.7-14.4 gssg=981) PLATELET COUNT (BEAKER) (test iykz=490) 118 K/CU MM 150-450 MEAN PLATELET VOLUME (BEAKER) (test chrc=770) 11.5 fL 9.4-12.3 NUCLEATED RED BLOOD CELLS (BEAKER) (test 1 /100 WBC 0-0 gtvc=853) (CELLAVISION MANUAL DIFF)2018-12-09 09:54:00 Test Item Value Reference Range Comments NEUTROPHILS - REL (CELLAVISION)(BEAKER) (test 76 % dxoc=1783) LYMPHOCYTES - REL (CELLAVISION)(BEAKER) (test 11 % sswv=8548) MONOCYTES - REL (CELLAVISION)(BEAKER) (test 10 % nfwz=2429) EOSINOPHILS - REL (CELLAVISION)(BEAKER) (test 2 % lvof=4070) BASOPHILS - REL (CELLAVISION)(BEAKER) (test 1 % bceu=5906) NEUTROPHILS - ABS (CELLAVISION)(BEAKER) (test 7.52 K/ul 1.56-6.13 vobt=9324) LYMPHOCYTES - ABS (CELLAVISION)(BEAKER) (test 1.09 K/ul 1.18-3.74 ezzw=2513) MONOCYTES - ABS (CELLAVISION)(BEAKER) (test 0.99 K/uL 0.24-0.36 rpcr=5433) EOSINOPHILS - ABS (CELLAVISION)(BEAKER) (test 0.20 K/uL 0.04-0.36 xoef=8193) BASOPHILS - ABS (CELLAVISION)(BEAKER) (test 0.10 K/uL 0.01-0.08 erzi=6245) TOTAL COUNTED (BEAKER) (test zqap=4637) 100 MANUAL NRBC PER 100 CELLS (BEAKER) (test 1 /100 WBC 0-0 uqro=7717) WBC MORPHOLOGY (BEAKER) (test mwcm=864) Normal PLT MORPHOLOGY (BEAKER) (test czef=492) Normal POLYCHROMATOPHILLIC RBCS(BEAKER) (test alnj=796) 1+ few ANISOCYTOSIS (BEAKER) (test vzby=822) 1+ few MACROCYTES (BEAKER) (test mxry=915) 1+ few POIKILOCYTES (BEAKER) (test nbjw=916) 2+ moderate ARTIFACT (CELLAVISION)(BEAKER) (test lmyh=9678) Present PLATELET CONCENTRATION (CELLAVISION)(BEAKER) Decreased (test gohp=8655) Received comment: User comments: Slide comments:RAD, ABDOMEN/KUB, 1 VIEW [id number] 07:43:00Reason for exam:->ileusFINAL REPORT ONE VIEW ABDOMEN [...] clips in the right abdomen. Signed: Macey Phippseport Verified Date/Time: 12/09/2018 07:43:19 Reading Location : [address] Reading Room POCT-GLUCOSE [id number] 05:30:00 Test Item Value Reference Range Comments POC-GLUCOSE METER (BEAKER) 112 mg/dL 70-110 TESTED AT [facility] [address] [facility] (test emoa=4342) [facility] [address] [id number] 05:09:00 Test Item Value Reference Range Comments MAGNESIUM (BEAKER) (test 2.1 mg/dL 1.6-2.6 Specimen slightly hemolyzed vohv=065) [id number] 05:09:00 Test Item Value Reference Range Comments PHOSPHORUS (BEAKER) (test 2.2 mg/dL 2.3-4.7 Specimen slightly hemolyzed jmyy=204) BASIC METABOLIC [id number] 05:09:00 Test Item Value Reference Range Comments SODIUM (BEAKER) (test 140 meq/L 136-145 evyw=478) POTASSIUM (BEAKER) (test 4.1 meq/L 3.5-5.1 Specimen slightly uufj=542) hemolyzed CHLORIDE (BEAKER) (test 108 meq/L 98-107 icgs=932) CO2 (BEAKER) (test 24 meq/L 22-29 girc=864) BLOOD UREA NITROGEN 18 mg/dL 7-21 (BEAKER) (test bnul=315) CREATININE (BEAKER) (test 0.65 mg/dL 0.57-1.25 Specimen slightly lynl=305) hemolyzed GLUCOSE RANDOM (BEAKER) 124 mg/dL 70-105 (test ssin=439) CALCIUM (BEAKER) (test 8.1 mg/dL 8.4-10.2 njpp=528) EGFR (BEAKER) (test 93 mL/min/1.73 sq m ESTIMATED GFR IS NOT quso=2699) ACCURATE CREATININE CLEARANCE IN PREDICTING GLOMERULAR FILTRATION RATE. ESTIMATED GFR IS NOT APPLICABLE FOR DIALYSIS PATIENTS. Specimen slightly ictericHEPATIC FUNCTION [id number] 05:09:00 Test Item Value Reference Range Comments TOTAL PROTEIN (BEAKER) (test 5.4 gm/dL 6.0-8.3 Specimen slightly hemolyzed wgic=508) ALBUMIN (BEAKER) (test 3.2 g/dL 3.5-5.0 Specimen slightly hemolyzed athk=4912) BILIRUBIN TOTAL (BEAKER) (test 2.2 mg/dL 0.2-1.2 Specimen slightly hemolyzed jyvd=935) BILIRUBIN DIRECT (BEAKER) (test 0.9 mg/dL 0.1-0.5 Specimen slightly hemolyzed atsy=220) ALKALINE PHOSPHATASE (BEAKER) 63 U/L 40-150 (test gqgk=709) AST (SGOT) (BEAKER) (test 70 U/L 5-34 Specimen slightly hemolyzed yfhl=842) ALT (SGPT) (BEAKER) (test 169 U/L 6-55 Specimen slightly hemolyzed vbyc=071) Specimen slightly ictericLACTIC ACID, [id number] 04:54:00 Test Item Value Reference Range Comments LACTATE BLOOD VENOUS (2) (BEAKER) (test 1.3 mmol/L 0.5-2.2 npfy=9994) Specimen slightly ictericPT/[id number] 04:45:00 Test Item Value Reference Range Comments PROTIME (BEAKER) (test prbu=205) 16.8 seconds 11.9-14.2 INR (BEAKER) (test eqbx=375) 1.4 <=5.9 PARTIAL THROMBOPLASTIN TIME (BEAKER) (test 29.5 seconds 22.5-36.0 vwsp=190) Effective 10/24/2018: PT Reference Range ChangeNew: 11.9-14.2 Previous: 11.7- 14.7RECOMMENDED COUMADIN/WARFARIN INR THERAPY RANGESSTANDARD DOSE: 2.0-3.0 Includes: PROPHYLAXIS for venous thrombosis, systemic embolization; TREATMENT for venous thrombosis and/or pulmonary embolus.HIGH RISK: Target INR is2.5-3.5 for patients wiht mechanical heart valves.[id number] 04:45:00 Test Item Value Reference Range Comments FIBRINOGEN LEVEL (BEAKER) (test vkvw=254) 212 mg/dl 225-434 POCT-GLUCOSE [id number] 23:51:00 Test Item Value Reference Range Comments POC-GLUCOSE METER (BEAKER) 127 mg/dL 70-110 TESTED AT [facility] [address] [place] [address] (test gztj=2774) [facility] [address] [id number] 18:46:00 Test Item Value Reference Range Comments PHOSPHORUS (BEAKER) (test nlri=707) 2.8 mg/dL 2.3-4.7 [id number] 18:46:00 Test Item Value Reference Range Comments MAGNESIUM (BEAKER) (test ezbc=699) 2.3 mg/dL 1.6-2.6 BASIC METABOLIC [id number] 18:46:00 Test Item Value Reference Range Comments SODIUM (BEAKER) (test 139 meq/L 136-145 rdxd=975) POTASSIUM (BEAKER) (test 4.0 meq/L 3.5-5.1 veyf=625) CHLORIDE (BEAKER) (test 107 meq/L 98-107 adjl=886) CO2 (BEAKER) (test 24 meq/L 22-29 zpro=247) BLOOD UREA NITROGEN 19 mg/dL 7-21 (BEAKER) (test nagp=538) CREATININE (BEAKER) (test 0.68 mg/dL 0.57-1.25 pljt=552) GLUCOSE RANDOM (BEAKER) 114 mg/dL 70-105 (test qfgw=741) CALCIUM (BEAKER) (test 8.2 mg/dL 8.4-10.2 injw=253) EGFR (BEAKER) (test 88 mL/min/1.73 sq m ESTIMATED GFR IS NOT vdwo=1861) ACCURATE CREATININE CLEARANCE IN PREDICTING GLOMERULAR FILTRATION RATE. ESTIMATED GFR IS NOT APPLICABLE FOR DIALYSIS PATIENTS. Specimen slightly ictericPOCT-GLUCOSE [id number] 17:54:00 Test Item Value Reference Range Comments POC-GLUCOSE METER (BEAKER) 93 mg/dL 70-110 TESTED AT [address] (test qxbf=6789) [facility] [address] LACTIC ACID, [id number] 12:49:00 Test Item Value Reference Range Comments LACTATE BLOOD VENOUS (2) (BEAKER) (test 1.9 mmol/L 0.5-2.2 fykv=1865) Specimen slightly ictericPOCT-GLUCOSE [id number] 12:09:00 Test Item Value Reference Range Comments POC-GLUCOSE METER (BEAKER) 142 mg/dL 70-110 TESTED AT [address] (test btvu=4188) [facility] [address] RAD, ABDOMEN/KUB, 1 VIEW [id number] 08:31:00Reason for exam:->ileusShould this be performed at [...] versus early small bowel obstruction. Signed: Daphne Bishopeport Verified Date/Time: 12/08/2018 08:31:46 Reading Location: [facility] [address] Body Reading Room [id number] 08:02:00 Test Item Value Reference Range Comments PHOSPHORUS (BEAKER) (test qyjd=314) 1.7 mg/dL 2.3-4.7 POCT-GLUCOSE [id number] 05:40:00 Test Item Value Reference Range Comments POC-GLUCOSE METER (BEAKER) 128 mg/dL 70-110 TESTED AT [facility] [address] (test iaum=1733) [facility] [address] [id number] 05:14:00 Test Item Value Reference Range Comments MAGNESIUM (BEAKER) (test fjvj=743) 2.2 mg/dL 1.6-2.6 BASIC METABOLIC [id number] 05:14:00 Test Item Value Reference Range Comments SODIUM (BEAKER) (test 141 meq/L 136-145 pcyi=453) POTASSIUM (BEAKER) (test 4.0 meq/L 3.5-5.1 uppr=679) CHLORIDE (BEAKER) (test 109 meq/L 98-107 ejnr=979) CO2 (BEAKER) (test 25 meq/L 22-29 vpyp=790) BLOOD UREA NITROGEN 21 mg/dL 7-21 (BEAKER) (test qhot=447) CREATININE (BEAKER) (test 0.66 mg/dL 0.57-1.25 hzpj=204) GLUCOSE RANDOM (BEAKER) 118 mg/dL 70-105 (test xtsg=285) CALCIUM (BEAKER) (test 8.3 mg/dL 8.4-10.2 rcnz=688) EGFR (BEAKER) (test 91 mL/min/1.73 sq m ESTIMATED GFR IS NOT dzdt=1776) ACCURATE CREATININE CLEARANCE IN PREDICTING GLOMERULAR FILTRATION RATE. ESTIMATED GFR IS NOT APPLICABLE FOR DIALYSIS PATIENTS. Specimen slightly ictericHEPATIC FUNCTION [id number] 05:14:00 Test Item Value Reference Range Comments TOTAL PROTEIN (BEAKER) (test maqz=264) 5.4 gm/dL 6.0-8.3 ALBUMIN (BEAKER) (test nfad=7285) 3.4 g/dL 3.5-5.0 BILIRUBIN TOTAL (BEAKER) (test cfrq=586) 2.4 mg/dL 0.2-1.2 BILIRUBIN DIRECT (BEAKER) (test qeeb=003) 1.0 mg/dL 0.1-0.5 ALKALINE PHOSPHATASE (BEAKER) (test tiig=951) 65 U/L 40-150 AST (SGOT) (BEAKER) (test fjtu=594) 94 U/L 5-34 ALT (SGPT) (BEAKER) (test uibh=786) 229 U/L 6-55 Specimen slightly [id number] 05:09:00 Test Item Value Reference Range Comments FIBRINOGEN LEVEL (BEAKER) (test dcfh=765) 223 mg/dl 225-434 [id number] 05:09:00 Test Item Value Reference Range Comments PROTIME (BEAKER) (test rlft=726) 16.4 seconds 11.9-14.2 INR (BEAKER) (test vihv=757) 1.4 <=5.9 PARTIAL THROMBOPLASTIN TIME (BEAKER) (test 32.1 seconds 22.5-36.0 shxi=754) Effective 10/24/2018: PT Reference Range ChangeNew: 11.9-14.2 Previous: 11.7- 14.7RECOMMENDED COUMADIN/WARFARIN INR THERAPY RANGESSTANDARD DOSE: 2.0-3.0 Includes: PROPHYLAXIS for venous thrombosis, systemic embolization; TREATMENT for venous thrombosis and/or pulmonary embolus.HIGH RISK: Target INR is2.5-3.5 for patients wiht mechanical heart valves.CBC W/PLT COUNT & AUTO [id number] 04:41:00 Test Item Value Reference Range Comments WHITE BLOOD CELL COUNT (BEAKER) (test cvur=664) 10.2 K/ L 3.5-10.5 RED BLOOD CELL COUNT (BEAKER) (test ohza=445) 2.63 M/ L 3.93-5.22 HEMOGLOBIN (BEAKER) (test cupa=983) 8.3 GM/DL 11.2-15.7 HEMATOCRIT (BEAKER) (test iijs=809) 26.1 % 34.1-44.9 MEAN CORPUSCULAR VOLUME (BEAKER) (test tavh=830) 99.2 fL 79.4-94.8 MEAN CORPUSCULAR HEMOGLOBIN (BEAKER) (test 31.6 pg 25.6-32.2 gkna=052) MEAN CORPUSCULAR HEMOGLOBIN CONC (BEAKER) (test 31.8 GM/DL 32.2-35.5 fcim=965) RED CELL DISTRIBUTION WIDTH (BEAKER) (test 23.0 % 11.7-14.4 hklf=064) PLATELET COUNT (BEAKER) (test xtzb=098) 106 K/CU MM 150-450 MEAN PLATELET VOLUME (BEAKER) (test mmgh=712) 11.6 fL 9.4-12.3 NUCLEATED RED BLOOD CELLS (BEAKER) (test 2 /100 WBC 0-0 gpol=081) NEUTROPHILS RELATIVE PERCENT (BEAKER) (test 53 % dyrv=161) LYMPHOCYTES RELATIVE PERCENT (BEAKER) (test 26 % gycg=125) MONOCYTES RELATIVE PERCENT (BEAKER) (test 17 % kgee=292) EOSINOPHILS RELATIVE PERCENT (BEAKER) (test 2 % fkrd=431) BASOPHILS RELATIVE PERCENT (BEAKER) (test 0 % vedt=439) NEUTROPHILS ABSOLUTE COUNT (BEAKER) (test 5.44 K/ L 1.56-6.13 wjmg=894) LYMPHOCYTES ABSOLUTE COUNT (BEAKER) (test 2.68 K/ L 1.18-3.74 dtmq=728) MONOCYTES ABSOLUTE COUNT (BEAKER) (test 1.78 K/ L 0.24-0.36 emlu=593) EOSINOPHILS ABSOLUTE COUNT (BEAKER) (test 0.21 K/ L 0.04-0.36 vmov=420) BASOPHILS ABSOLUTE COUNT (BEAKER) (test 0.03 K/ L 0.01-0.08 ehdm=709) IMMATURE GRANULOCYTES-RELATIVE PERCENT (BEAKER) 1 % 0-1 (test zcbx=2865) HEMOGLOBIN AND [id number] 04:38:00 Test Item Value Reference Range Comments HEMOGLOBIN (BEAKER) (test llum=602) 8.3 GM/DL 11.2-15.7 HEMATOCRIT (BEAKER) (test wcqb=251) 26.1 % 34.1-44.9 POCT-GLUCOSE [id number] 00:02:00 Test Item Value Reference Range Comments POC-GLUCOSE METER (BEAKER) 125 mg/dL 70-110 TESTED AT [facility] [address] [facility] (test xtzu=1281) [facility] [address] [id number] 23:12:00 Test Item Value Reference Range Comments POTASSIUM (BEAKER) (test bnoz=598) 5.1 meq/L 3.5-5.1 [id number] 23:12:00 Test Item Value Reference Range Comments MAGNESIUM (BEAKER) (test rjbx=872) 2.3 mg/dL 1.6-2.6 HEMOGLOBIN AND [id number] 22:46:00 Test Item Value Reference Range Comments HEMOGLOBIN (BEAKER) (test vfnp=905) 7.8 GM/DL 11.2-15.7 HEMATOCRIT (BEAKER) (test wfqm=380) 23.9 % 34.1-44.9 BLOOD CULTURE IDENTIFICATION [id number] 20:39:00 Test Item Value Reference Range Comments LISTERIA MONOCYTOGENES (test Not detected Not detected bmmn=[id number]) STAPHYLOCOCCUS (test Detected Not detected Coagulase negative Staph ypfu=[id number]) species (CoNS)- methicillin susceptibleFirst-line therapy: Cefazolin or Oxacillin (Oxacillin preferred if [employer] involvement) MecA NOT DETECTEDPossible contamination. The likelihood of pathogenicity is increased if the organism is observed in multiple blood cultures obtained from separate venipunctures.Reference Range: Not Detected STAPHYLOCOCCUS AUREUS (test Not detected Not detected iiju=[id number]) STREPTOCOCCUS (test Not detected Not detected gxml=[id number]) STREPTOCOCCUS AGALACTIAE Not detected Not detected (GROUP B) (test owqj=5219832) STREPTOCOCCUS PNEUMONIAE Not detected Not detected (test mayf=8605376) STREPTOCOCCUS PYOGENES (GROUP Not detected Not detected A) (test nzcu=9658149) ACINETOBACTER BAUMANNII (test Not detected Not detected nikq=1625021) HAEMOPHILUS INFLUENZAE (test Not detected Not detected wcpk=[id number]) NEISSERIA MENINGITIDIS (test Not detected Not detected xxdq=6934470) ENTEROBACTERIACEAE (test Not detected Not detected nvng=5109765) ENTEROBACTER CLOACOE COMPLEX Not detected Not detected (test iyle=6186809) KLEBSIELLA OXYTOCA (test Not detected Not detected vgia=1697074) KLEBSIELLA PNEUMONIAE (test Not detected Not detected pwoy=7026) PROTEUS (test ycsi=0724853) Not detected Not detected SERRATIA MARCESCENS (test Not detected Not detected yqwt=8458670) LINDA ALBICANS (test Not detected Not detected ezdw=6096936) LINDA GLABRATA (test Not detected Not detected bxvu=6884093) LINDA KRUSEI (test Not detected Not detected wmzk=8735406) LINDA PARAPSILOSIS (test Not detected Not detected psms=1005838) LINDA TROPICALIS (test Not detected Not detected tirf=0256390) ESCHERICHIA COLI (test Not detected Not detected mfau=7557375) METHICILLIN-RESISTANCE GENE Not detected Not detected (test cbfi=3615773) VANCOMYCIN-RESISTANCE GENE Not detected (test hhqt=8082329) CARBAPENEM-RESISTANCE GENE Not detected (test hykw=3533020) ENTEROCOCCUS-BEAKER (test Not detected Not detected vprk=4723042) PSEUDOMONAS AERUGINOSA-BEAKER Not detected Not detected (test dpeh=0372303) Other bacteria and resistance markers not targeted by this PCR panel cannot be excluded; therefore clinical correlation and follow up of serology, culture results, and other molecular studies is required. The results are not intended to be used as the sole means for clinical diagnosis or patient management decisions. This sample was tested at the [facility] Molecular Diagnostics Laboratory using the [facility] Blood Culture ID Panel. It is FDA cleared and has been verified and approved by the [facility] Molecular Diagnostics Laboratory for clinical use. This laboratory is CLIA-certified and College ofAmerican Pathologists (CAP)-accredited to perform high complexity testing.POCT-GLUCOSE [id number] 18:12:00 Test Item Value Reference Range Comments POC-GLUCOSE METER (BEAKER) 146 mg/dL 70-110 TESTED AT [facility] [address] (test psre=4021) [facility] [address] LACTIC ACID, [id number] 15:57:00 Test Item Value Reference Range Comments LACTATE BLOOD VENOUS (2) (BEAKER) (test 2.2 mmol/L 0.5-2.2 dssh=5461) Specimen slightly ictericHEMOGLOBIN AND [id number] 15:42:00 Test Item Value Reference Range Comments HEMOGLOBIN (BEAKER) (test llcu=739) 8.3 GM/DL 11.2-15.7 HEMATOCRIT (BEAKER) (test hpgw=332) 25.0 % 34.1-44.9 RAD, ABDOMEN/KUB, 1 VIEW [id number] 15:11:00Reason for exam:->suspected ileusShould this be performed [...] tissue mass. Bones are osteopenic. Signed: Julia Stern MDReport Verified Date/Time: 12/07/2018 15:11:34 Reading Location: [facility] Reading Room Electronically signed by: JULIA STERN MD on 2018 03:11 [id number] 12:18:00 Test Item Value Reference Range Comments PROCALCITONIN (BEAKER) (test itdu=6607) 0.09 ng/mL <0.05 SEPSIS RISK (ng/mL)Low: 0.05-0.50Intermediate: 0.51-2.00High: & gt;=2.01POCT-GLUCOSE [id number] 12:08:00 Test Item Value Reference Range Comments POC-GLUCOSE METER (BEAKER) 128 mg/dL 70-110 TESTED AT [address] (test egqj=5362) [place] [id number] LACTIC ACID, [id number] 11:54:00 Test Item Value Reference Range Comments LACTATE BLOOD VENOUS (2) (BEAKER) (test 1.7 mmol/L 0.5-2.2 wvzt=6756) POCT-GLUCOSE [id number] 09:43:00 Test Item Value Reference Range Comments POC-GLUCOSE METER (BEAKER) 142 mg/dL 70-110 TESTED AT [address] (test zgmr=5390) [place] [address] POCT-GLUCOSE [id number] 09:41:00 Test Item Value Reference Range Comments POC-GLUCOSE METER (BEAKER) 147 mg/dL 70-110 TESTED AT [address] (test wvkq=9238) [place] [address] POCT-GLUCOSE [id number] 09:38:00 Test Item Value Reference Range Comments POC-GLUCOSE METER (BEAKER) 149 mg/dL 70-110 TESTED AT [address] (test vvqn=4694) [place] [address] POCT-GLUCOSE [id number] 09:38:00 Test Item Value Reference Range Comments POC-GLUCOSE METER (BEAKER) 147 mg/dL 70-110 TESTED AT [address] (test zewy=3181) [place] [address] VANCOMYCIN LEVEL, [id number] 09:37:00 Test Item Value Reference Range Comments VANCOMYCIN TROUGH (BEAKER) (test tkue=883) 10.5 ug/mL 10.0-20.0 POCT-GLUCOSE [id number] 09:35:00 Test Item Value Reference Range Comments POC-GLUCOSE METER (BEAKER) 161 mg/dL 70-110 TESTED AT [facility] [address] (test jofw=9077) [facility] [address] HEMOGLOBIN AND [id number] 09:18:00 Test Item Value Reference Range Comments HEMOGLOBIN (BEAKER) (test bvov=282) 9.3 GM/DL 11.2-15.7 HEMATOCRIT (BEAKER) (test vvie=074) 28.0 % 34.1-44.9 RAD, CHEST, 1 VIEW, NON [id number] 09:12:00Reason for exam:->Picc line placementShould this be performed at the bedside?->YesFINAL REPORT TECHNIQUE: Frontal chest radiographs dated 12/07/2018. CLINICAL HISTORY: PICC placement COMPARISON STUDY: Chest radiograph dated 12/06/2018 IMPRESSION:Left-sided PICCis seen with the tip projected over the right atrium. There is bibasilar atelectasis/scarring, unchanged. No pleural effusion or pneumothorax. Cardiomediastinal silhouette is normal in size. No pulmonary edema. Bones are osteopenic. Signed: Julia Stern Verified Date/ Time: 12/07/2018 09:12:03 Reading Location: [facility] Reading Room RAD , ABDOMEN/KUB, 1 VIEW [id number] 04:39:00Reason for exam:->Concern for SBO vs Ileus [...] Goldman MDReportVerified Date/Time: 12/07/2018 04:39:54 Reading Location: [address] Reading Room [id number] 04:12:00 Test Item Value Reference Range Comments PHOSPHORUS (BEAKER) (test nytv=517) 3.5 mg/dL 2.3-4.7 [id number] 04:12:00 Test Item Value Reference Range Comments MAGNESIUM (BEAKER) (test nbpk=003) 1.8 mg/dL 1.6-2.6 BASIC METABOLIC [id number] 04:12:00 Test Item Value Reference Range Comments SODIUM (BEAKER) (test 141 meq/L 136-145 ilgn=769) POTASSIUM (BEAKER) (test 3.5 meq/L 3.5-5.1 ddyw=269) CHLORIDE (BEAKER) (test 109 meq/L 98-107 lnrm=660) CO2 (BEAKER) (test 21 meq/L 22-29 ltqr=707) BLOOD UREA NITROGEN 27 mg/dL 7-21 (BEAKER) (test tslw=627) CREATININE (BEAKER) (test 0.77 mg/dL 0.57-1.25 xpud=985) GLUCOSE RANDOM (BEAKER) 144 mg/dL 70-105 (test dvfr=539) CALCIUM (BEAKER) (test 8.6 mg/dL 8.4-10.2 nneh=672) EGFR (BEAKER) (test 76 mL/min/1.73 sq m ESTIMATED GFR IS NOT czvf=4585) ACCURATE CREATININE CLEARANCE IN PREDICTING GLOMERULAR FILTRATION RATE. ESTIMATED GFR IS NOT APPLICABLE FOR DIALYSIS PATIENTS. Specimen slightly ictericHEPATIC FUNCTION [id number] 04:12:00 Test Item Value Reference Range Comments TOTAL PROTEIN (BEAKER) (test enqg=686) 5.9 gm/dL 6.0-8.3 ALBUMIN (BEAKER) (test pzoi=5820) 3.4 g/dL 3.5-5.0 BILIRUBIN TOTAL (BEAKER) (test mjgw=956) 2.3 mg/dL 0.2-1.2 BILIRUBIN DIRECT (BEAKER) (test iugy=020) 1.0 mg/dL 0.1-0.5 ALKALINE PHOSPHATASE (BEAKER) (test ppyq=604) 78 U/L 40-150 AST (SGOT) (BEAKER) (test rjpt=206) 204 U/L 5-34 ALT (SGPT) (BEAKER) (test froh=663) 392 U/L 6-55 Specimen slightly ictericLACTIC ACID, [id number] 03:49:00 Test Item Value Reference Range Comments LACTATE BLOOD VENOUS (2) 2.3 mmol/L 0.5-2.2 Specimen slightly hemolyzed (BEAKER) (test rrgj=3017) Specimen slightly ictericPT/[id number] 03:47:00 Test Item Value Reference Range Comments PROTIME (BEAKER) (test jton=918) 16.3 seconds 11.9-14.2 INR (BEAKER) (test pdms=849) 1.4 <=5.9 PARTIAL THROMBOPLASTIN TIME (BEAKER) (test 25.9 seconds 22.5-36.0 tymt=794) Effective 10/24/2018: PT Reference Range ChangeNew: 11.9-14.2 Previous: 11.7- 14.7RECOMMENDED COUMADIN/WARFARIN INR THERAPY RANGESSTANDARD DOSE: 2.0-3.0 Includes: PROPHYLAXIS for venous thrombosis, systemic embolization; TREATMENT for venous thrombosis and/or pulmonary embolus.HIGH RISK: Target INR is2.5-3.5 for patients wiht mechanical heart valves.[id number] 03:47:00 Test Item Value Reference Range Comments FIBRINOGEN LEVEL (BEAKER) (test caub=750) 252 mg/dl 225-434 CBC W/PLT COUNT & AUTO [id number] 03:43:00 Test Item Value Reference Range Comments WHITE BLOOD CELL COUNT (BEAKER) (test mpat=945) 14.3 K/ L 3.5-10.5 RED BLOOD CELL COUNT (BEAKER) (test gkrt=559) 3.04 M/ L 3.93-5.22 HEMOGLOBIN (BEAKER) (test xzvj=197) 9.6 GM/DL 11.2-15.7 HEMATOCRIT (BEAKER) (test nqwb=837) 28.9 % 34.1-44.9 MEAN CORPUSCULAR VOLUME (BEAKER) (test mrlb=428) 95.1 fL 79.4-94.8 MEAN CORPUSCULAR HEMOGLOBIN (BEAKER) (test 31.6 pg 25.6-32.2 pewg=630) MEAN CORPUSCULAR HEMOGLOBIN CONC (BEAKER) (test 33.2 GM/DL 32.2-35.5 mvve=000) RED CELL DISTRIBUTION WIDTH (BEAKER) (test 22.7 % 11.7-14.4 qzsv=599) PLATELET COUNT (BEAKER) (test cldd=022) 133 K/CU MM 150-450 MEAN PLATELET VOLUME (BEAKER) (test aefq=693) 12.0 fL 9.4-12.3 NUCLEATED RED BLOOD CELLS (BEAKER) (test 3 /100 WBC 0-0 ejhh=237) NEUTROPHILS RELATIVE PERCENT (BEAKER) (test 67 % ozyo=143) LYMPHOCYTES RELATIVE PERCENT (BEAKER) (test 17 % enad=320) MONOCYTES RELATIVE PERCENT (BEAKER) (test 15 % vugt=485) EOSINOPHILS RELATIVE PERCENT (BEAKER) (test 0 % iwmz=251) BASOPHILS RELATIVE PERCENT (BEAKER) (test 0 % odig=474) NEUTROPHILS ABSOLUTE COUNT (BEAKER) (test 9.64 K/ L 1.56-6.13 uiag=739) LYMPHOCYTES ABSOLUTE COUNT (BEAKER) (test 2.41 K/ L 1.18-3.74 jwbw=647) MONOCYTES ABSOLUTE COUNT (BEAKER) (test 2.13 K/ L 0.24-0.36 ptvd=572) EOSINOPHILS ABSOLUTE COUNT (BEAKER) (test 0.01 K/ L 0.04-0.36 isos=953) BASOPHILS ABSOLUTE COUNT (BEAKER) (test 0.06 K/ L 0.01-0.08 fyfz=278) IMMATURE GRANULOCYTES-RELATIVE PERCENT (BEAKER) 1 % 0-1 (test vtgv=0818) BLOOD GAS, [id number] 00:47:00 Test Item Value Reference Range Comments PH VENOUS (BEAKER) (test mpbp=896) 7.44 7.32-7.42 PCO2 VENOUS (BEAKER) (test dknf=978) 36 mmHg 41-51 PO2 VENOUS (BEAKER) (test hmlr=033) 43 mmHg 25-40 O2 SATURATION VENOUS (BEAKER) (test paoi=730) 81.3 % 40.0-70.0 HCO3 VENOUS (BEAKER) (test jkfr=935) 24 mmol/L 21-29 BASE EXCESS VENOUS (BEAKER) (test eerp=720) -0.2 mmol/L -2.0-3.0 PATIENT TEMPERATURE (BEAKER) (test alme=3234) 36.7 C FIO2 (BEAKER) (test kewi=0541) 21.0 % HEMOGLOBIN AND [id number] 00:36:00 Test Item Value Reference Range Comments HEMOGLOBIN (BEAKER) (test dvhr=411) 9.7 GM/DL 11.2-15.7 HEMATOCRIT (BEAKER) (test ptbw=963) 29.0 % 34.1-44.9 CT, [id number] 00:24:00FINAL REPORT EXAM: CT of the abdomen [...] 12/07/2018 00:24:22 12:24 AMRAD, ABDOMEN/KUB, 1 VIEW [id number] 18: 47:00Reason for exam:->abdominal distensionShould this be [...] Phipps MDReportVerified Date/Time: 12/06/2018 18:47:51 Reading Location: [address] Transitional Reading Room Electronically signed by: MACEY PHIPPS MD on 12/06 06:47 [id number] 18:17:00 Test Item Value Reference Range Comments PHOSPHORUS (BEAKER) (test 3.0 mg/dL 2.3-4.7 Specimen slightly hemolyzed jzao=678) BASIC METABOLIC [id number] 18:17:00 Test Item Value Reference Range Comments SODIUM (BEAKER) (test 142 meq/L 136-145 toco=424) POTASSIUM (BEAKER) (test 3.3 meq/L 3.5-5.1 Specimen slightly ravw=546) hemolyzed CHLORIDE (BEAKER) (test 112 meq/L 98-107 ahcb=751) CO2 (BEAKER) (test 20 meq/L 22-29 rbhi=575) BLOOD UREA NITROGEN 25 mg/dL 7-21 (BEAKER) (test nwjp=669) CREATININE (BEAKER) (test 0.73 mg/dL 0.57-1.25 Specimen slightly czqt=224) hemolyzed GLUCOSE RANDOM (BEAKER) 150 mg/dL 70-105 (test kqgj=412) CALCIUM (BEAKER) (test 8.2 mg/dL 8.4-10.2 myna=480) EGFR (BEAKER) (test 81 mL/min/1.73 sq m ESTIMATED GFR IS NOT encl=0191) ACCURATE CREATININE CLEARANCE IN PREDICTING GLOMERULAR FILTRATION RATE. ESTIMATED GFR IS NOT APPLICABLE FOR DIALYSIS PATIENTS. RAD, CHEST, 1 VIEW, NON [id number] 18:15:00Reason for exam:->shortness of breathShould this be [...] Phipps MDReportVerified Date/Time: 12/06/2018 18:15:51 Reading Location: [address] Transitional Reading Room Electronically signed by: MACEY PHIPPS MD on 12/06 06:15 PMCBC W/PLT COUNT & AUTO [id number] 18:00:00 Test Item Value Reference Range Comments WHITE BLOOD CELL COUNT (BEAKER) (test ctju=416) 12.6 K/ L 3.5-10.5 RED BLOOD CELL COUNT (BEAKER) (test ebwz=378) 2.95 M/ L 3.93-5.22 HEMOGLOBIN (BEAKER) (test zfhs=687) 9.3 GM/DL 11.2-15.7 HEMATOCRIT (BEAKER) (test ocfo=002) 28.1 % 34.1-44.9 MEAN CORPUSCULAR VOLUME (BEAKER) (test vfcp=026) 95.3 fL 79.4-94.8 MEAN CORPUSCULAR HEMOGLOBIN (BEAKER) (test 31.5 pg 25.6-32.2 uibx=847) MEAN CORPUSCULAR HEMOGLOBIN CONC (BEAKER) (test 33.1 GM/DL 32.2-35.5 jgkf=494) RED CELL DISTRIBUTION WIDTH (BEAKER) (test 23.1 % 11.7-14.4 zxwi=280) PLATELET COUNT (BEAKER) (test mecw=426) 126 K/CU MM 150-450 MEAN PLATELET VOLUME (BEAKER) (test stbk=691) 11.5 fL 9.4-12.3 NUCLEATED RED BLOOD CELLS (BEAKER) (test 3 /100 WBC 0-0 xxsp=622) (CELLAVISION MANUAL DIFF)2018-12-06 18:00:00 Test Item Value Reference Range Comments NEUTROPHILS - REL (CELLAVISION)(BEAKER) (test 75 % fzjd=3749) LYMPHOCYTES - REL (CELLAVISION)(BEAKER) (test 15 % mkzt=9051) MONOCYTES - REL (CELLAVISION)(BEAKER) (test 7 % ipkx=7174) BASOPHILS - REL (CELLAVISION)(BEAKER) (test 1 % kyiy=3153) BANDS - REL (CELLAVISION)(BEAKER) (test 2 % 0-10 rqpe=0555) NEUTROPHILS - ABS (CELLAVISION)(BEAKER) (test 9.45 K/ul 1.56-6.13 ahuc=7664) LYMPHOCYTES - ABS (CELLAVISION)(BEAKER) (test 1.89 K/ul 1.18-3.74 qspl=1142) MONOCYTES - ABS (CELLAVISION)(BEAKER) (test 0.88 K/uL 0.24-0.36 tobm=8101) BASOPHILS - ABS (CELLAVISION)(BEAKER) (test 0.13 K/uL 0.01-0.08 dddw=8921) BANDS - ABS (CELLAVISION)(BEAKER) (test 0.25 K/uL 0.00-0.80 dyhw=9032) TOTAL COUNTED (BEAKER) (test puor=1253) 100 MANUAL NRBC PER 100 CELLS (BEAKER) (test 3 /100 WBC 0-0 rpzf=5117) SMUDGE CELLS (BEAKER) (test mrmy=9874) Present GIANT PLATELETS (BEAKER) (test lqqf=471) Present POLYCHROMATOPHILLIC RBCS(BEAKER) (test qjbm=750) 1+ few ANISOCYTOSIS (BEAKER) (test yqyz=892) 2+ moderate MICROCYTES (BEAKER) (test pevn=373) 2+ moderate POIKILOCYTES (BEAKER) (test mimd=337) 1+ few ELLIPTOCYTES (BEAKER) (test gwnn=827) 1+ few ARTIFACT (CELLAVISION)(BEAKER) (test rgki=5964) Present PLATELET CONCENTRATION (CELLAVISION)(BEAKER) Decreased (test xrdw=5858) Received comment: User comments: Slide comments:HEMOGLOBIN AND [id number] 17:32:00 Test Item Value Reference Range Comments HEMOGLOBIN (BEAKER) (test gyhj=717) 9.3 GM/DL 11.2-15.7 HEMATOCRIT (BEAKER) (test xema=129) 28.1 % 34.1-44.9 ANTI-NUCLEAR ANTIBODY (SATNAM)2018-12-06 10:40:00 Test Item Value Reference Range Comments ANTI-NUCLEAR ANTIBODY (SATNAM) (BEAKER) (test Negative Negative vhxv=670) Test performed by IFA method.Test performed by IFA method.LACTIC ACID, [id number] 09:53:00 Test Item Value Reference Range Comments LACTATE BLOOD VENOUS (2) (BEAKER) (test 1.6 mmol/L 0.5-2.2 qusx=4055) POCT-GLUCOSE [id number] 06:27:00 Test Item Value Reference Range Comments POC-GLUCOSE METER (BEAKER) 181 mg/dL 70-110 TESTED AT [facility] [address] (test vmov=8870) [place] [address] [id number] 04:38:00 Test Item Value Reference Range Comments PHOSPHORUS (BEAKER) (test 1.4 mg/dL 2.3-4.7 Specimen slightly hemolyzed iccf=087) [id number] 04:33:00 Test Item Value Reference Range Comments MAGNESIUM (BEAKER) (test 1.9 mg/dL 1.6-2.6 Specimen slightly hemolyzed ijwi=548) BASIC METABOLIC [id number] 04:33:00 Test Item Value Reference Range Comments SODIUM (BEAKER) (test 146 meq/L 136-145 mdbu=133) POTASSIUM (BEAKER) (test 3.4 meq/L 3.5-5.1 Specimen slightly fffj=250) hemolyzed CHLORIDE (BEAKER) (test 116 meq/L 98-107 avvy=644) CO2 (BEAKER) (test 21 meq/L 22-29 mbkd=994) BLOOD UREA NITROGEN 29 mg/dL 7-21 (BEAKER) (test azph=655) CREATININE (BEAKER) (test 0.73 mg/dL 0.57-1.25 Specimen slightly aqib=267) hemolyzed GLUCOSE RANDOM (BEAKER) 226 mg/dL 70-105 (test yqdd=406) CALCIUM (BEAKER) (test 8.0 mg/dL 8.4-10.2 xnkd=662) EGFR (BEAKER) (test 81 mL/min/1.73 sq m ESTIMATED GFR IS NOT ecxt=6139) ACCURATE CREATININE CLEARANCE IN PREDICTING GLOMERULAR FILTRATION RATE. ESTIMATED GFR IS NOT APPLICABLE FOR DIALYSIS PATIENTS. HEPATIC FUNCTION [id number] 04:33:00 Test Item Value Reference Range Comments TOTAL PROTEIN (BEAKER) (test 5.2 gm/dL 6.0-8.3 Specimen slightly hemolyzed wbpn=153) ALBUMIN (BEAKER) (test 3.0 g/dL 3.5-5.0 Specimen slightly hemolyzed htva=0865) BILIRUBIN TOTAL (BEAKER) (test 1.4 mg/dL 0.2-1.2 Specimen slightly hemolyzed ifdu=803) BILIRUBIN DIRECT (BEAKER) (test 0.5 mg/dL 0.1-0.5 Specimen slightly hemolyzed yust=434) ALKALINE PHOSPHATASE (BEAKER) 55 U/L 40-150 (test yyin=087) AST (SGOT) (BEAKER) (test 282 U/L 5-34 Specimen slightly hemolyzed cltt=852) ALT (SGPT) (BEAKER) (test 443 U/L 6-55 Specimen slightly hemolyzed ztzy=383) CBC W/PLT COUNT & AUTO [id number] 04:30:00 Test Item Value Reference Range Comments WHITE BLOOD CELL COUNT (BEAKER) (test ojjg=685) 12.3 K/ L 3.5-10.5 RED BLOOD CELL COUNT (BEAKER) (test hjqb=716) 2.78 M/ L 3.93-5.22 HEMOGLOBIN (BEAKER) (test nfyh=403) 8.7 GM/DL 11.2-15.7 HEMATOCRIT (BEAKER) (test viec=846) 27.3 % 34.1-44.9 MEAN CORPUSCULAR VOLUME (BEAKER) (test lwrp=731) 98.2 fL 79.4-94.8 MEAN CORPUSCULAR HEMOGLOBIN (BEAKER) (test 31.3 pg 25.6-32.2 cref=459) MEAN CORPUSCULAR HEMOGLOBIN CONC (BEAKER) (test 31.9 GM/DL 32.2-35.5 begl=663) RED CELL DISTRIBUTION WIDTH (BEAKER) (test 22.3 % 11.7-14.4 xcjs=068) PLATELET COUNT (BEAKER) (test kbyj=335) 112 K/CU MM 150-450 MEAN PLATELET VOLUME (BEAKER) (test foir=879) 11.9 fL 9.4-12.3 NUCLEATED RED BLOOD CELLS (BEAKER) (test 2 /100 WBC 0-0 hakb=087) NEUTROPHILS RELATIVE PERCENT (BEAKER) (test 61 % tthg=912) LYMPHOCYTES RELATIVE PERCENT (BEAKER) (test 24 % gipq=054) MONOCYTES RELATIVE PERCENT (BEAKER) (test 12 % alea=974) EOSINOPHILS RELATIVE PERCENT (BEAKER) (test 2 % fhxi=930) BASOPHILS RELATIVE PERCENT (BEAKER) (test 1 % qtew=116) NEUTROPHILS ABSOLUTE COUNT (BEAKER) (test 7.52 K/ L 1.56-6.13 ajrc=943) LYMPHOCYTES ABSOLUTE COUNT (BEAKER) (test 2.97 K/ L 1.18-3.74 jwkm=242) MONOCYTES ABSOLUTE COUNT (BEAKER) (test 1.44 K/ L 0.24-0.36 oait=813) EOSINOPHILS ABSOLUTE COUNT (BEAKER) (test 0.20 K/ L 0.04-0.36 xweb=201) BASOPHILS ABSOLUTE COUNT (BEAKER) (test 0.06 K/ L 0.01-0.08 ilbb=643) IMMATURE GRANULOCYTES-RELATIVE PERCENT (BEAKER) 1 % 0-1 (test dmol=3317) [id number] 04:29:00 Test Item Value Reference Range Comments PROTIME (BEAKER) (test lwwe=377) 16.8 seconds 11.9-14.2 INR (BEAKER) (test jldy=153) 1.4 <=5.9 PARTIAL THROMBOPLASTIN TIME (BEAKER) (test 27.0 seconds 22.5-36.0 ycsg=681) Effective 10/24/2018: PT Reference Range ChangeNew: 11.9-14.2 Previous: 11.7- 14.7RECOMMENDED COUMADIN/WARFARIN INR THERAPY RANGESSTANDARD DOSE: 2.0-3.0 Includes: PROPHYLAXIS for venous thrombosis, systemic embolization; TREATMENT for venous thrombosis and/or pulmonary embolus.HIGH RISK: Target INR is2.5-3.5 for patients wiht mechanical heart valves.[id number] 04:29:00 Test Item Value Reference Range Comments FIBRINOGEN LEVEL (BEAKER) (test meoj=177) 218 mg/dl 225-434 POCT-GLUCOSE [id number] 00:18:00 Test Item Value Reference Range Comments POC-GLUCOSE METER (BEAKER) 153 mg/dL 70-110 TESTED AT [facility] [address] [facility] (test pmps=6252) [facility] [address] HEMOGLOBIN AND [id number] 00:17:00 Test Item Value Reference Range Comments HEMOGLOBIN (BEAKER) (test anoh=071) 9.1 GM/DL 11.2-15.7 HEMATOCRIT (BEAKER) (test uokr=474) 27.7 % 34.1-44.9 POCT-GLUCOSE [id number] 18:00:00 Test Item Value Reference Range Comments POC-GLUCOSE METER (BEAKER) 177 mg/dL 70-110 TESTED AT [address] (test jpjr=9729) [place] [id number] BASIC METABOLIC [id number] 13:48:00 Test Item Value Reference Range Comments SODIUM (BEAKER) (test 148 meq/L 136-145 dout=387) POTASSIUM (BEAKER) (test 3.4 meq/L 3.5-5.1 ddod=045) CHLORIDE (BEAKER) (test 119 meq/L 98-107 ogoa=644) CO2 (BEAKER) (test 25 meq/L 22-29 dqnu=714) BLOOD UREA NITROGEN 36 mg/dL 7-21 (BEAKER) (test rmtz=730) CREATININE (BEAKER) (test 0.73 mg/dL 0.57-1.25 ykrw=526) GLUCOSE RANDOM (BEAKER) 165 mg/dL 70-105 (test ozjp=646) CALCIUM (BEAKER) (test 7.8 mg/dL 8.4-10.2 ohiu=698) EGFR (BEAKER) (test 81 mL/min/1.73 sq m ESTIMATED GFR IS NOT zwgi=1630) ACCURATE CREATININE CLEARANCE IN PREDICTING GLOMERULAR FILTRATION RATE. ESTIMATED GFR IS NOT APPLICABLE FOR DIALYSIS PATIENTS. [id number] 13:45:00 Test Item Value Reference Range Comments PHOSPHORUS (BEAKER) (test qxhf=667) 2.1 mg/dL 2.3-4.7 HEMOGLOBIN AND [id number] 13:30:00 Test Item Value Reference Range Comments HEMOGLOBIN (BEAKER) (test yzpc=606) 6.9 GM/DL 11.2-15.7 HEMATOCRIT (BEAKER) (test zkkm=856) 21.5 % 34.1-44.9 POCT-GLUCOSE [id number] 12:17:00 Test Item Value Reference Range Comments POC-GLUCOSE METER (BEAKER) 179 mg/dL 70-110 TESTED AT [place] [id number] [facility] (test dybn=4771) [place] [id number] CBC W/PLT COUNT & AUTO [id number] 10:50:00 Test Item Value Reference Range Comments WHITE BLOOD CELL COUNT (BEAKER) (test wlzi=302) 14.7 K/ L 3.5-10.5 RED BLOOD CELL COUNT (BEAKER) (test fqud=079) 2.30 M/ L 3.93-5.22 HEMOGLOBIN (BEAKER) (test joqk=677) 7.4 GM/DL 11.2-15.7 HEMATOCRIT (BEAKER) (test buut=509) 22.5 % 34.1-44.9 MEAN CORPUSCULAR VOLUME (BEAKER) (test zlwf=017) 97.8 fL 79.4-94.8 MEAN CORPUSCULAR HEMOGLOBIN (BEAKER) (test 32.2 pg 25.6-32.2 olam=945) MEAN CORPUSCULAR HEMOGLOBIN CONC (BEAKER) (test 32.9 GM/DL 32.2-35.5 jcqu=227) RED CELL DISTRIBUTION WIDTH (BEAKER) (test 22.2 % 11.7-14.4 olfk=167) PLATELET COUNT (BEAKER) (test gwzu=288) 120 K/CU MM 150-450 MEAN PLATELET VOLUME (BEAKER) (test osar=721) 11.9 fL 9.4-12.3 NUCLEATED RED BLOOD CELLS (BEAKER) (test 2 /100 WBC 0-0 qabn=772) (CELLAVISION MANUAL DIFF)2018-12-05 10:50:00 Test Item Value Reference Range Comments NEUTROPHILS - REL (CELLAVISION)(BEAKER) (test 77 % jhye=1086) LYMPHOCYTES - REL (CELLAVISION)(BEAKER) (test 15 % abkj=3625) MONOCYTES - REL (CELLAVISION)(BEAKER) (test 8 % dyqy=5463) BANDS - REL (CELLAVISION)(BEAKER) (test 1 % 0-10 hucz=7198) NEUTROPHILS - ABS (CELLAVISION)(BEAKER) (test 11.32 K/ul 1.56-6.13 dtil=8741) LYMPHOCYTES - ABS (CELLAVISION)(BEAKER) (test 2.21 K/ul 1.18-3.74 eyrb=0287) MONOCYTES - ABS (CELLAVISION)(BEAKER) (test 1.18 K/uL 0.24-0.36 cafj=1674) BANDS - ABS (CELLAVISION)(BEAKER) (test 0.15 K/uL 0.00-0.80 lnvn=3632) TOTAL COUNTED (BEAKER) (test ywru=2979) 100 MANUAL NRBC PER 100 CELLS (BEAKER) (test 3 /100 WBC 0-0 mhfs=7280) WBC MORPHOLOGY (BEAKER) (test hfio=963) Normal PLT MORPHOLOGY (BEAKER) (test gpay=636) Normal POLYCHROMATOPHILLIC RBCS(BEAKER) (test hals=715) 1+ few MICROCYTES (BEAKER) (test czkq=643) 1+ few MACROCYTES (BEAKER) (test civa=727) 1+ few OVALOCYTES (BEAKER) (test vihh=172) 1+ few ARTIFACT (CELLAVISION)(BEAKER) (test bqqd=0170) Present PLATELET CONCENTRATION (CELLAVISION)(BEAKER) Decreased (test zyap=4788) Received comment: User comments: Slide comments:POCT-GLUCOSE [id number] 06: 14:00 Test Item Value Reference Range Comments POC-GLUCOSE METER (BEAKER) 173 mg/dL 70-110 TESTED AT [address] (test kxlw=7423) [facility] [id number] U/S, ABDOMINAL, WITH [id number] 05:32:00Reason for exam:->evaluate portal vein, evaluate biliary [...] identified on this examination. Signed: Howard Ahuja [facility] Verified Date/Time: 12/05/2018 05:32:17 BASIC METABOLIC [id number] 04:35:00 Test Item Value Reference Range Comments SODIUM (BEAKER) (test 150 meq/L 136-145 edwf=637) POTASSIUM (BEAKER) (test 3.6 meq/L 3.5-5.1 mpso=126) CHLORIDE (BEAKER) (test 121 meq/L 98-107 yxcl=608) CO2 (BEAKER) (test 20 meq/L 22-29 gxtl=181) BLOOD UREA NITROGEN 38 mg/dL 7-21 (BEAKER) (test exhn=720) CREATININE (BEAKER) (test 0.73 mg/dL 0.57-1.25 rhha=327) GLUCOSE RANDOM (BEAKER) 162 mg/dL 70-105 (test oqre=075) CALCIUM (BEAKER) (test 8.2 mg/dL 8.4-10.2 xbff=346) EGFR (BEAKER) (test 81 mL/min/1.73 sq m ESTIMATED GFR IS NOT ucql=9603) ACCURATE CREATININE CLEARANCE IN PREDICTING GLOMERULAR FILTRATION RATE. ESTIMATED GFR IS NOT APPLICABLE FOR DIALYSIS PATIENTS. [id number] 04:34:00 Test Item Value Reference Range Comments PHOSPHORUS (BEAKER) (test khft=991) 2.0 mg/dL 2.3-4.7 [id number] 04:34:00 Test Item Value Reference Range Comments MAGNESIUM (BEAKER) (test tvzt=632) 2.1 mg/dL 1.6-2.6 HEPATIC FUNCTION [id number] 04:34:00 Test Item Value Reference Range Comments TOTAL PROTEIN (BEAKER) (test mbgp=199) 4.9 gm/dL 6.0-8.3 ALBUMIN (BEAKER) (test wihd=9595) 3.0 g/dL 3.5-5.0 BILIRUBIN TOTAL (BEAKER) (test tvjl=022) 0.9 mg/dL 0.2-1.2 BILIRUBIN DIRECT (BEAKER) (test kopq=417) 0.5 mg/dL 0.1-0.5 ALKALINE PHOSPHATASE (BEAKER) (test hqlp=808) 50 U/L 40-150 AST (SGOT) (BEAKER) (test xhfq=494) 505 U/L 5-34 ALT (SGPT) (BEAKER) (test uogd=199) 549 U/L 6-55 [id number] 04:15:00 Test Item Value Reference Range Comments AMMONIA (BEAKER) (test flhz=666) 97 mol/L 18-72 LACTIC ACID, [id number] 04:10:00 Test Item Value Reference Range Comments LACTATE BLOOD VENOUS (2) (BEAKER) (test 2.6 mmol/L 0.5-2.2 mlto=3788) [id number] 03:54:00 Test Item Value Reference Range Comments PROTIME (BEAKER) (test howc=112) 19.2 seconds 11.9-14.2 INR (BEAKER) (test ewlu=335) 1.7 <=5.9 PARTIAL THROMBOPLASTIN TIME (BEAKER) (test 31.6 seconds 22.5-36.0 fomn=162) Effective 10/24/2018: PT Reference Range ChangeNew: 11.9-14.2 Previous: 11.7- 14.7RECOMMENDED COUMADIN/WARFARIN INR THERAPY RANGESSTANDARD DOSE: 2.0-3.0 Includes: PROPHYLAXIS for venous thrombosis, systemic embolization; TREATMENT for venous thrombosis and/or pulmonary embolus.HIGH RISK: Target INR is2.5-3.5 for patients wiht mechanical heart valves.[id number] 03:54:00 Test Item Value Reference Range Comments FIBRINOGEN LEVEL (BEAKER) (test kgwd=226) 188 mg/dl 225-434 POCT-GLUCOSE [id number] 00:17:00 Test Item Value Reference Range Comments POC-GLUCOSE METER (BEAKER) 185 mg/dL 70-110 TESTED AT [facility] [address] [facility] (test jtrb=2168) [facility] [address] HEMOGLOBIN AND [id number] 21:43:00 Test Item Value Reference Range Comments HEMOGLOBIN (BEAKER) (test kzab=340) 8.1 GM/DL 11.2-15.7 HEMATOCRIT (BEAKER) (test tejj=823) 24.3 % 34.1-44.9 [id number] 19:32:00 Test Item Value Reference Range Comments FERRITIN (BEAKER) (test jlmg=193) 2039 ng/mL 5-275 T4, [id number] 18:58:00 Test Item Value Reference Range Comments FREE T4 (BEAKER) (test velx=310) 0.91 ng/dL 0.70-1.48 (CELLAVISION MANUAL DIFF)2018-12-04 18:52:00 Test Item Value Reference Range Comments NEUTROPHILS - REL (CELLAVISION)(BEAKER) (test 79 % dfka=5516) LYMPHOCYTES - REL (CELLAVISION)(BEAKER) (test 15 % jrkf=1257) MONOCYTES - REL (CELLAVISION)(BEAKER) (test 4 % tpmm=6954) BANDS - REL (CELLAVISION)(BEAKER) (test 1 % 0-10 ovhq=3942) NEUTROPHILS - ABS (CELLAVISION)(BEAKER) (test 14.38 K/ul 1.56-6.13 fpft=2170) LYMPHOCYTES - ABS (CELLAVISION)(BEAKER) (test 2.73 K/ul 1.18-3.74 wgvj=9686) MONOCYTES - ABS (CELLAVISION)(BEAKER) (test 0.73 K/uL 0.24-0.36 uukk=8223) BANDS - ABS (CELLAVISION)(BEAKER) (test 0.18 K/uL 0.00-0.80 hzwe=4483) TOTAL COUNTED (BEAKER) (test sjek=9961) 100 MANUAL NRBC PER 100 CELLS (BEAKER) (test 3 /100 WBC 0-0 ftbw=9393) SMUDGE CELLS (BEAKER) (test lyyr=4400) Present GIANT PLATELETS (BEAKER) (test jgvg=759) Present PLASMACYTOID LYMPHS(BEAKER) (test cxkh=7357) Present POLYCHROMATOPHILLIC RBCS(BEAKER) (test yhxi=405) 1+ few ANISOCYTOSIS (BEAKER) (test xtom=049) 1+ few MACROCYTES (BEAKER) (test cflk=942) 1+ few POIKILOCYTES (BEAKER) (test morl=229) 1+ few OVALOCYTES (BEAKER) (test lwbe=753) 1+ few ARTIFACT (CELLAVISION)(BEAKER) (test wojv=1068) Present HELMET CELLS (CELLAVISION)(BEAKER) (test 1+ few dflq=8217) PLATELET CONCENTRATION (CELLAVISION)(BEAKER) Adequate (test kiok=5043) Received comment: User comments: Slide comments:[id number] 18:41:00 Test Item Value Reference Range Comments PROCALCITONIN (BEAKER) (test jgvn=6296) 0.20 ng/mL <0.05 SEPSIS RISK (ng/mL)Low: 0.05-0.50Intermediate: 0.51-2.00High: & gt;=2.01HEPATITIS A ANTIBODY, [id number] 18:27:00 Test Item Value Reference Range Comments HEPATITIS A IGG ANTIBODY (BEAKER) (test ropd=2030) Reactive Nonreactive HEPATITIS B SURFACE [id number] 18:26:00 Test Item Value Reference Range Comments HEPATITIS B SURFACE ANTIBODY (BEAKER) (test < mIU/mL <8.0 guwf=343) TSH/FREE T4 IF [id number] 18:26:00 Test Item Value Reference Range Comments THYROID STIMULATING HORMONE (BEAKER) (test 0.08 uIU/mL 0.35-4.94 dczw=943) ALPHA FETOPROTEIN (AFP), TUMOR [id number] 18:26:00 Test Item Value Reference Range Comments ALPHA-FETOPROTEIN (BEAKER) (test xmmb=9288) 2.2 ng/mL <10.0 HEPATITIS A ANTIBODY, [id number] 18:26:00 Test Item Value Reference Range Comments HEPATITIS A IGM ANTIBODY (BEAKER) (test Nonreactive Nonreactive udpp=735) HEPATITIS B CORE ANTIBODY, [id number] 18:26:00 Test Item Value Reference Range Comments HEPATITIS B CORE TOTAL ANTIBODY (BEAKER) (test Nonreactive Nonreactive yfst=453) HEPATITIS B SURFACE [id number] 18:23:00 Test Item Value Reference Range Comments HEPATITIS B SURFACE ANTIGEN (2) (BEAKER) (test Nonreactive Nonreactive dlel=5923) HEPATITIS C [id number] 18:23:00 Test Item Value Reference Range Comments HEPATITIS C ANTIBODY (BEAKER) (test epmu=550) Nonreactive Nonreactive RAD, CHEST, 1 VIEW, NON [id number] 18:18:00Reason for exam:->hypoxemiaIs the patient ?->NoShould this [...] MDReport Verified Date/Time: 12/04/2018 18:18:54 Reading Location: [address] Consult Reading Room CBC W/PLT COUNT & AUTO [id number] 18:17:00 Test Item Value Reference Range Comments WHITE BLOOD CELL COUNT (BEAKER) (test biop=919) 18.2 K/ L 3.5-10.5 RED BLOOD CELL COUNT (BEAKER) (test ktkv=462) 2.70 M/ L 3.93-5.22 HEMOGLOBIN (BEAKER) (test fyig=235) 8.5 GM/DL 11.2-15.7 HEMATOCRIT (BEAKER) (test wxow=107) 26.1 % 34.1-44.9 MEAN CORPUSCULAR VOLUME (BEAKER) (test aqtk=497) 96.7 fL 79.4-94.8 MEAN CORPUSCULAR HEMOGLOBIN (BEAKER) (test 31.5 pg 25.6-32.2 fgmq=849) MEAN CORPUSCULAR HEMOGLOBIN CONC (BEAKER) (test 32.6 GM/DL 32.2-35.5 ptxz=050) RED CELL DISTRIBUTION WIDTH (BEAKER) (test 22.2 % 11.7-14.4 gslc=975) PLATELET COUNT (BEAKER) (test jhju=424) 158 K/CU MM 150-450 MEAN PLATELET VOLUME (BEAKER) (test cmzd=235) 11.4 fL 9.4-12.3 NUCLEATED RED BLOOD CELLS (BEAKER) (test 1 /100 WBC 0-0 yhfw=755) NEUTROPHILS RELATIVE PERCENT (BEAKER) (test 71 % bsza=602) LYMPHOCYTES RELATIVE PERCENT (BEAKER) (test 18 % sogj=010) MONOCYTES RELATIVE PERCENT (BEAKER) (test 10 % lsqk=663) EOSINOPHILS RELATIVE PERCENT (BEAKER) (test 0 % qhvz=961) BASOPHILS RELATIVE PERCENT (BEAKER) (test 0 % cdad=892) NEUTROPHILS ABSOLUTE COUNT (BEAKER) (test 12.85 K/ L 1.56-6.13 jpvw=845) LYMPHOCYTES ABSOLUTE COUNT (BEAKER) (test 3.35 K/ L 1.18-3.74 kwem=653) MONOCYTES ABSOLUTE COUNT (BEAKER) (test 1.74 K/ L 0.24-0.36 vtso=945) EOSINOPHILS ABSOLUTE COUNT (BEAKER) (test 0.01 K/ L 0.04-0.36 lxgp=878) BASOPHILS ABSOLUTE COUNT (BEAKER) (test 0.08 K/ L 0.01-0.08 fyds=595) IMMATURE GRANULOCYTES-RELATIVE PERCENT (BEAKER) 1 % 0-1 (test uyeb=5694) B-TYPE NATRIURETIC FACTOR (BNP)2018-12-04 18:10:00 Test Item Value Reference Range Comments B-TYPE NATRIURETIC PEPTIDE (BEAKER) (test 155 pg/mL 0-100 bqde=789) COMPREHENSIVE METABOLIC [id number] 18:08:00 Test Item Value Reference Range Comments TOTAL PROTEIN (BEAKER) 5.5 gm/dL 6.0-8.3 (test xklb=069) ALBUMIN (BEAKER) (test 3.3 g/dL 3.5-5.0 pyyl=7386) ALKALINE PHOSPHATASE 55 U/L 40-150 (BEAKER) (test yndm=754) BILIRUBIN TOTAL (BEAKER) 1.1 mg/dL 0.2-1.2 (test oieb=598) SODIUM (BEAKER) (test 150 meq/L 136-145 eezn=459) POTASSIUM (BEAKER) (test 3.5 meq/L 3.5-5.1 docx=893) CHLORIDE (BEAKER) (test 122 meq/L 98-107 ftob=765) CO2 (BEAKER) (test 18 meq/L 22-29 eycb=960) BLOOD UREA NITROGEN 38 mg/dL 7-21 (BEAKER) (test gvks=166) CREATININE (BEAKER) (test 0.78 mg/dL 0.57-1.25 woiw=493) GLUCOSE RANDOM (BEAKER) 168 mg/dL 70-105 (test azal=611) CALCIUM (BEAKER) (test 8.5 mg/dL 8.4-10.2 hrmc=005) AST (SGOT) (BEAKER) (test 825 U/L 5-34 ksgm=807) ALT (SGPT) (BEAKER) (test 712 U/L 6-55 qykt=317) EGFR (BEAKER) (test 75 mL/min/1.73 sq m ESTIMATED GFR IS NOT jrih=2993) ACCURATE CREATININE CLEARANCE IN PREDICTING GLOMERULAR FILTRATION RATE. ESTIMATED GFR IS NOT APPLICABLE FOR DIALYSIS PATIENTS. [id number] 18:07:00 Test Item Value Reference Range Comments PHOSPHORUS (BEAKER) (test vcfi=091) 2.2 mg/dL 2.3-4.7 [id number] 18:07:00 Test Item Value Reference Range Comments MAGNESIUM (BEAKER) (test obuc=756) 2.0 mg/dL 1.6-2.6 CHLORIDE, RANDOM [id number] 18:03:00 Test Item Value Reference Range Comments CHLORIDE URINE (BEAKER) (test xjub=434) 58 meq/L Reference Range: No NormalsCREATININE, RANDOM [id number] 18:03:00 Test Item Value Reference Range Comments CREATININE URINE (BEAKER) (test fypl=898) 90.3 mg/dL Reference Range: No NormalsPROTEIN, RANDOM [id number] 18:03:00 Test Item Value Reference Range Comments PROTEIN, URINE (BEAKER) (test ixva=9861) 17 mg/dL 0-14 SODIUM, RANDOM [id number] 18:03:00 Test Item Value Reference Range Comments SODIUM URINE (BEAKER) (test sbpx=301) < meq/L Reference Range: No [id number] 18:02:00 Test Item Value Reference Range Comments ALPHA-1 ANTITRYPSIN (BEAKER) (test yxff=287) 156.80 mg/dL 90.00-200.00 IRON, TIBC, % SAT. (WITHOUT FERRITIN)2018-12-04 18:02:00 Test Item Value Reference Range Comments IRON (BEAKER) (test hxil=073) 140.0 ug/dL 40.0-160.0 TOTAL IRON BINDING CAPACITY (BEAKER) (test 258 ug/dL 250-450 xugv=437) IRON % SATURATION (2) (BEAKER) (test vzsc=4318) 54 % 20-55 RAD, ABDOMEN/KUB, 1 VIEW [id number] 18:00:00Reason for exam:->abdominal distentionShould this be performed [...] MDReport Verified Date/Time: 12/04/2018 18:00:28 Reading Location: [address] Consult Reading Room LACTIC ACID, [id number] 17:59:00 Test Item Value Reference Range Comments LACTATE BLOOD VENOUS (2) 5.4 mmol/L 0.5-2.2 Specimen slightly hemolyzed (BEAKER) (test icqs=4864) URINALYSIS W/ REFLEX URINE [id number] 17:57:00 Test Item Value Reference Range Comments COLOR (BEAKER) (test sufx=632) Yellow CLARITY (BEAKER) (test nmme=281) Clear SPECIFIC GRAVITY UA (BEAKER) (test pzcn=791) 1.022 1.001-1.035 PH UA (BEAKER) (test saga=891) 6.0 5.0-8.0 PROTEIN UA (BEAKER) (test wvix=634) 10 mg/dL Negative GLUCOSE UA (BEAKER) (test rctn=889) Negative Negative KETONES UA (BEAKER) (test gucy=673) Negative Negative BILIRUBIN UA (BEAKER) (test dhzg=159) Negative Negative BLOOD UA (BEAKER) (test vvrg=410) Moderate Negative NITRITE UA (BEAKER) (test pzop=902) Negative Negative LEUKOCYTE ESTERASE UA (BEAKER) (test eccq=372) Small Negative UROBILINOGEN UA (BEAKER) (test fkpp=530) 0.2 mg/dL 0.2-1.0 RBC UA (BEAKER) (test rgfh=010) 23 /HPF WBC UA (BEAKER) (test mrjc=407) 16 /HPF MUCUS (BEAKER) (test aaqw=2728) Rare SOURCE(BEAKER) (test dbzh=2137) [id number] 17:57:00 Test Item Value Reference Range Comments PROTIME (BEAKER) (test ljgo=191) 19.5 seconds 11.9-14.2 INR (BEAKER) (test kxwu=951) 1.7 <=5.9 PARTIAL THROMBOPLASTIN TIME (BEAKER) (test 29.0 seconds 22.5-36.0 depx=550) Effective 10/24/2018: PT Reference Range ChangeNew: 11.9-14.2 Previous: 11.7- 14.7RECOMMENDED COUMADIN/WARFARIN INR THERAPY RANGESSTANDARD DOSE: 2.0-3.0 Includes: PROPHYLAXIS for venous thrombosis, systemic embolization; TREATMENT for venous thrombosis and/or pulmonary embolus.HIGH RISK: Target INR is2.5-3.5 for patients wiht mechanical heart valves.[id number] 17:57:00 Test Item Value Reference Range Comments FIBRINOGEN LEVEL (BEAKER) (test iond=446) 224 mg/dl 225-434 BLOOD GAS, [id number] 17:46:00 Test Item Value Reference Range Comments PH ARTERIAL (BEAKER) (test eftd=774) 7.46 7.35-7.45 PCO2 ARTERIAL (BEAKER) (test goat=654) 27 mmHg 35-45 PO2 ARTERIAL (BEAKER) (test situ=438) 83 mmHg 80-90 O2 SATURATION ARTERIAL (BEAKER) (test ajis=693) 97.0 % 96.0-97.0 HCO3 ARTERIAL (BEAKER) (test tbhi=406) 19 mmol/L 21-29 BASE EXCESS ARTERIAL (BEAKER) (test flnp=196) -4.3 mmol/L -2.0-3.0 PATIENT TEMPERATURE (BEAKER) (test mtil=0337) 36.7 C FIO2 (BEAKER) (test dwzx=8612) 40.0 %
--- NOTE | 2019-07-18 15:29 | RAD REPORT ---
EXAM DESCRIPTION: RAD - Chest Single View - 07/18/2019 3:24 pm CLINICAL HISTORY: abd pain Chest pain. COMPARISON: Chest Single View dated 04/26/2019; Chest Single View dated 04/22/2019; Chest Single Vie w dated 12/01/2018; CHEST PA AND LAT 2 VIEW dated 06/18/2012 FINDINGS: Portable technique limits examination quality. The lungs are grossly clear. The heart is upper limit of normal in size. No displaced fractures. IMPRESSION: No acute intrathoracic process suspected.
[2019-07-18 15:53] LABS: Absolute Lymphocytes (CBC) 0.5 K/uL (0.7-4.9); Basophils % 0.3 % (0-1.3); Hematocrit 33.8 % (36.0-45.0); Lymphocytes % 12.4 % (15.3-44.8); MPV 9.6 fL (7.6-11.3)
[2019-07-18 15:59] LABS: Protime INR 1.15
[2019-07-18] MEDS ORDERED: NA CHLORIDE 0.9% 1,000 ML ONE (16:00)
[2019-07-18] MEDS ORDERED: PROMETHAZINE INJ 25 MG/ML AMP ONE ×2 (16:00→17:20)
[2019-07-18 16:16] LABS: Albumin 3.2 g/dL (3.4-5.0); Bilirubin Direct 0.3 mg/dL (0-0.2); Bilirubin Total 1.2 mg/dL (0.2-1.0); Magnesium 1.8 mg/dL (1.8-2.4); Potassium 3.4 mmol/L (3.5-5.1); Protein, Total 7.6 g/dL (6.4-8.2)
[2019-07-18 16:22] LABS: Urine Blood 1+ (NEG); Urine Glucose NEGATIVE (NEG); Urine Protein NEGATIVE (NEG); Urine Specific Gravity 1.005 (1.005-1.030); Urine pH 5.5 (5.0-7.0)
[2019-07-18 16:41] LABS: Urine Bacteria <20 /HPF (<20); Urine Culture Reflex Order NOT NEEDED; Urine RBC <5 /HPF (NONE SEEN)
--- NOTE | 2019-07-18 16:50 | RAD REPORT ---
EXAM DESCRIPTION: CT - Chest Abdomen Pelvis W Cont - 07/18/2019 4:33 pm CLINICAL HISTORY: Chest and abdomen pain. ABDOMINAL DISTENTION COMPARISON: No comparisons TECHNIQUE: Approximately 100 mL nonionic IV contrast was administered to the patient. All CT scans are performed using dose optimization technique as appropriate and may include automated exposure control or mA/KV adjustment according to patient size. FINDINGS: The lungs are mildly emphysematous.Scattered areas of ground-glass opacity could represent minimal alveolitis.Trace right pleural effusion.Mildly prominent mediastinal adenopathy seen in the pretracheal region measuring up to 10-11 mm. Fatty liver infiltration is seen. The spleen is mildly enlarged. The pancreas, adrenal glands and kid neys show no acute process. Significant thickening and inflammation involves the colon particularly the ascending and transverse colon compatible with moderately severe right-sided colitis. No pneumatosis. The appendix is not iden tified as a discrete structure, however, no secondary findings of appendicitis are identified. No ev idence of free intraperitoneal air or abscess. Upper limit of normal the aortocaval lymph node presen t measuring 10-11 mm. No worrisome osseous finding. IMPRESSION: Moderate right-sided colitis is identified.
--- NOTE | 2019-07-18 17:28 | ER ---
Nurse's Notes [facility] Name: Kaitlyn Sesay Age: 59 yrs Sex: Female : 1960 Arrival Date: 07/18/2019 Time: 14:51 Bed 13 Private MD: Tavares Dillon R Diagnosis: Infectious gastroenteritis and colitis, unspecified-Moderately severe right sided colitis;Fever presenting with conditions classified elsewhere Presentation: 07/18 14:57 Presenting complaint: Patient states: yesterday about 4pm i started with stomach cramps tw2 and low grade fever 99.1 then today it went up to 102.9, i took 2 tylenol at 1pm today so it brought my temperature down a little, and i am nauseous,and i am having bad diarrhea. Transition of care: patient was not received from another setting of care. Onset of symptoms was July 18, 2019. Risk Assessment: Do you want to hurt yourself or someone else? Patient reports no desire to harm self or others. Initial Sepsis Screen: Does the patient meet any 2 criteria? No. Patient's initial sepsis screen is negative. Does the patient have a suspected source of infection? No. Patient's initial sepsis screen is negative. Care prior to arrival: None. 14:57 Method Of Arrival: Ambulatory tw2 14:57 Acuity: VIKRAM 3 tw2 Triage Assessment: 14:59 General: Appears uncomfortable, Behavior is calm, cooperative, appropriate for age. tw2 Pain: Complains of pain in abdomen. GI: Reports lower abdominal pain, bloating, diarrhea, nausea. Historical: - Allergies: 15:00 Cephalexin; tw2 15:00 Azithromycin; tw2 15:00 PENICILLINS; tw2 15:00 Rocephin; tw2 15:00 Rofecoxib; tw2 15:00 Sulfa (Sulfonamide Antibiotics); tw2 - Home Meds: 15:00 sufentanil citrate intravenous for pain pump [Active]; levothyroxine 150 mcg tab 1 tab tw2 once daily [Active]; pravastatin 40 mg Oral tab 1 tab once daily [Active]; gabapentin 600 mg Oral tab 1 tab 3 times per day [Active]; bupivicaine [Active]; - PMHx: 15:00 Chronic pain; GI Bleed; liver failure; Thyroid problem; tw2 - Immunization history:: Adult Immunizations. - Coronavirus screen:: The patient has NOT traveled to [place] in the past 14 days. - Social history:: Smoking status: . - Ebola Screening: : Patient denies travel to an Ebola-affected area in the 21 days before illness onset. Screenin:15 Abuse screen: Denies threats or abuse. Denies injuries from another. Nutritional bp screening: No deficits noted. Tuberculosis screening: No symptoms or risk factors identified. Fall Risk None identified. Assessment: 15:15 General: SEE TRIAGE NOTE. bp 16:09 Reassessment: IVF INFUSING. NO S/S NAUSEA/VOMITING AT THIS TIME. VS STABLE ON MONITOR. bp 18:00 Reassessment: ADMIT INITIATED. PT RESTING QUIETLY, VS STABLE ON MONITOR. bp 19:38 Reassessment: Patient appears in no apparent distress at this time. IV SITE SHOWS rv REDNESS AND TENDERNESS. INSERTED ANOTHER IV LINE IN THE OPPOSITE ARM. PREVIOUS IV TERMINATED. PATIENT UPDATED ON THE WAITING TIME. Vital Signs: 15:00 BP 137 / 83; Pulse 91; Resp 17; Temp 100.1(TE); Pulse Ox 99% on R/A; Weight 65.77 kg tw2 (R); Height 5 ft. 5 in. (165.10 cm); Pain 6/10; 16:08 BP 132 / 80; Pulse 87; Resp 16; Pulse Ox 99% ; bp 17:00 BP 120 / 76; Pulse 91; Resp 16; Pulse Ox 99% ; bp 18:00 BP 124 / 73; Pulse 88; Resp 17; Pulse Ox 99% ; bp 18:54 BP 127 / 71; Pulse 84; Resp 17; Temp 99.2; Pulse Ox 100% ; bp 15:00 Body Mass Index 24.13 (65.77 kg, 165.10 cm) tw2 ED Course: 14:51 Patient arrived in ED. rg4 14:51 aTvares Dillon MD is Private Physician. rg4 14:59 Triage completed. tw2 14:59 Arm band placed on. tw2 15:07 Beverley Leal [facility]-C [facility]. snw 15:07 Jamil Waters MD is Attending Physician. snw 15:14 Beau Zambrano, SRI is Primary Nurse. bp 15:15 Patient has correct armband on for positive identification. Bed in low position. Call bp light in reach. Side rails up X2. Adult w/ patient. 15:30 Inserted saline lock: 18 gauge in right forearm, using aseptic technique. Blood bp collected. 16:10 Urine collected: clean catch specimen, clear. 3 16:35 CT Chest, Abdomen, Pelvis - W/Contrast In Process Unspecified. EDMS 17:26 Tavares Dillon MD is Hospitalizing Provider. snw 17:32 called and left message on Dr Cordero cell phone for pt admission consult. 4 19:36 Inserted saline lock: 20 gauge in left forearm, using aseptic technique. rv 19:48 No provider procedures requiring assistance completed. IV with fluids infusing freely, rv with good blood return, Patient admitted, IV remains in place. Administered Medications: 15:45 Drug: Phenergan 12.5 mg Route: IVP; Site: right forearm; bp 17:32 Follow up: Response: Nausea is decreased bp 15:45 Drug: NS 0.9% 1000 ml Route: IV; Rate: 1 bolus; Site: right forearm; bp 17:32 Follow up: IV Status: Completed infusion; IV Intake: 1000ml bp 17:15 Drug: Phenergan 6.25 mg Route: IVP; Site: right forearm; bp 17:45 Follow up: Response: Nausea is decreased bp 17:44 Drug: Cipro 400 mg Volume: 200 ml; Route: IVPB; Infused Over: 60 mins; Site: right bp forearm; 19:47 Follow up: IV Status: Completed infusion rv Intake: 17:32 IV: 1000ml; Total: 1000ml. bp Outcome: 17:27 Decision to Hospitalize by Provider. snw 19:49 Admitted to Tele accompanied by nurse, via wheelchair, room 427, with chart, Report rv called to PEDRO PABLO FIERRO 19:49 Condition: good 19:49 Discharge instructions given to patient, Instructed on the need for admit, Demonstrated understanding of instructions. 19:50 Patient left the ED. rv Signatures: Dispatcher [employer] EDOR Beverley Leal, GEOPHYSICAL PARTY CHIEF-C GEOPHYSICAL PARTY CHIEF-Csnw Maryjane Salinas, RN RN tw2 Dayanara Johnson 4 Tiff Farmer 3 Beau Zambrano RN RN bp Adrian Barrientos, RN RN Lewis Yousif [facility]
--- NOTE | 2019-07-18 17:29 | EDPHYS ---
Physician Documentation [facility] Name: Kaitlyn Sesay Age: 59 yrs Sex: Female : 1960 Arrival Date: 07/18/2019 Time: 14:51 Bed 13 Private MD: Tavares Dillon R ED Physician Jamil Waters HPI: 07/18 15:36 This 59 yrs old Female presents to ER via Ambulatory with complaints of snw Fever, Diarrhea, Headache. 15:36 The patient reports fever, that was measured at 102.9 degrees Fahrenheit. Onset: The snw symptoms/episode began/occurred suddenly, yesterday. Modifying factors: there are no obvious modifying factors. Associated signs and symptoms: Pertinent positives: abdominal pain, chills, decreased appetite, diarrhea, myalgias, nausea. Severity of symptoms: At their worst the symptoms were moderate severe in the emergency department the symptoms are unchanged. It is unknown whether or not the patient has had similar symptoms in the past. 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 Dillon, set to ED for eval. Historical: - Allergies: 15:00 Cephalexin; tw2 15:00 Azithromycin; tw2 15:00 PENICILLINS; tw2 15:00 Rocephin; tw2 15:00 Rofecoxib; tw2 15:00 Sulfa (Sulfonamide Antibiotics); tw2 - Home Meds: 15:00 sufentanil citrate intravenous for pain pump [Active]; levothyroxine 150 mcg tab 1 tab tw2 once daily [Active]; pravastatin 40 mg Oral tab 1 tab once daily [Active]; gabapentin 600 mg Oral tab 1 tab 3 times per day [Active]; bupivicaine [Active]; - PMHx: 15:00 Chronic pain; GI Bleed; liver failure; Thyroid problem; tw2 - Immunization history:: Adult Immunizations. - Coronavirus screen:: The patient has NOT traveled to [place] in the past 14 days. - Social history:: Smoking status: . - Ebola Screening: : Patient denies travel to an Ebola-affected area in the 21 days before illness onset. ROS: 15:34 Eyes: Negative for injury, pain, redness, and discharge, ENT: Negative for injury, snw pain, and discharge, Neck: Negative for injury, pain, and swelling, Cardiovascular: Negative for chest pain, palpitations, and edema, Respiratory: Negative for shortness of breath, cough, wheezing, and pleuritic chest pain, Back: Negative for injury and pain, MS/Extremity: Negative for injury and deformity, Skin: Negative for injury, rash, and discoloration. 15:34 : Negative for injury, bleeding, discharge, and swelling. 15:34 Constitutional: Positive for body aches, chills, fever, malaise. 15:34 Abdomen/GI: Positive for abdominal pain, nausea, diarrhea, abdominal distension, of the left lower quadrant. 15:34 : 15:34 Neuro: Positive for headache. Exam: 15:21 Back: No spinal tenderness. No costovertebral tenderness. Full range of motion. snw Skin: Warm, dry with normal turgor. Normal color with no rashes, no lesions, and no evidence of cellulitis. MS/ Extremity: Pulses equal, no cyanosis. Neurovascular intact. Full, normal range of motion. Neuro: Awake and alert, GCS 15, oriented to person, place, time, and situation. Cranial nerves II-XII grossly intact. Motor strength 5/5 in all extremities. Sensory grossly intact. Cerebellar exam normal. Normal gait. 15:21 Head/Face: Normocephalic, atraumatic. Eyes: Pupils equal round and reactive to light, extra-ocular motions intact. Lids and lashes normal. Conjunctiva and sclera are non-icteric and not injected. Cornea within normal limits. Periorbital areas with no swelling, redness, or edema. ENT: Nares patent. No nasal discharge, no septal abnormalities noted. Tympanic membranes are normal and external auditory canals are clear. Oropharynx with no redness, swelling, or masses, exudates, or evidence of obstruction, uvula midline. Mucous membranes moist. Neck: Trachea midline, no thyromegaly or masses palpated, and no cervical lymphadenopathy. Supple, full range of motion without nuchal rigidity, or vertebral point tenderness. No Meningismus. Chest/axilla: Normal chest wall appearance and motion. Nontender with no deformity. No lesions are appreciated. Cardiovascular: Regular rate and rhythm with a normal S1 and S2. No gallops, murmurs, or rubs. Normal PMI, no JVD. No pulse deficits. Respiratory: Lungs have equal breath sounds bilaterally, clear to auscultation and percussion. No rales, rhonchi or wheezes noted. No increased work of breathing, no retractions or nasal flaring. Abdomen/GI: Soft, non-tender, with normal bowel sounds. No tympany. No guarding or rebound. No evidence of tenderness throughout. Pain pump to right mid abd, mild distension at left mid abdomen 15:21 Constitutional: The patient appears alert, awake, febrile, frail. 15:21 Abdomen/GI: guaiac negative. Vital Signs: 15:00 BP 137 / 83; Pulse 91; Resp 17; Temp 100.1(TE); Pulse Ox 99% on R/A; Weight 65.77 kg tw2 (R); Height 5 ft. 5 in. (165.10 cm); Pain 6/10; 16:08 BP 132 / 80; Pulse 87; Resp 16; Pulse Ox 99% ; bp 17:00 BP 120 / 76; Pulse 91; Resp 16; Pulse Ox 99% ; bp 18:00 BP 124 / 73; Pulse 88; Resp 17; Pulse Ox 99% ; bp 18:54 BP 127 / 71; Pulse 84; Resp 17; Temp 99.2; Pulse Ox 100% ; bp 15:00 Body Mass Index 24.13 (65.77 kg, 165.10 cm) tw2 MDM: 15:08 Patient medically screened. snw 15:40 Differential diagnosis: bacterial infection, UTI, gastroenteritis, diverticulitis, snw colitis, GIB. Data reviewed: vital signs, nurses notes, diagnostic data from outside facility, old medical records, lab test result(s). Data interpreted: Pulse oximetry: on room air is 99 %. Interpretation: normal. Counseling: I had a detailed discussion with the patient and/or guardian regarding: the historical points, exam findings, and any diagnostic results supporting the discharge/admit diagnosis, the presence of at least one elevated blood pressure reading (>120/80) during this emergency department visit, lab results, radiology results. 17:27 Physician consultation: Tavares Dillon MD was called at 17:27, was contacted at 17:27, snw regarding admission, to the medical/surgical unit. would like consultation with Dr. NUÑEZ, pt has seen both Dr. Lacy and Dr. 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 07/18 15:10 Order name: Basic Metabolic Panel; Complete Time: 16:18 07/18 15:10 Order name: CBC with Diff 07/18 15:10 Order name: LFT's; Complete Time: 16:18 07/18 15:10 Order name: Magnesium; Complete Time: 16:18 07/18 15:10 Order name: NT PRO-BNP; Complete Time: 16:18 07/18 15:10 Order name: PT-INR 07/18 15:10 Order name: XRAY Chest (1 view) 07/18 15:10 Order name: Flu; Complete Time: 16:29 07/18 15:22 Order name: AMMONIA; Complete Time: 16:17 07/18 15:22 Order name: Lactate; Complete Time: 16:17 07/18 15:22 Order name: Procalcitonin; Complete Time: 16:49 07/18 15:42 Order name: Urine Culture 07/18 15:42 Order name: Urine Microscopic Only; Complete Time: 16:49 07/18 16:16 Order name: Urine Dipstick--Ancillary (enter results); Complete Time: 16:29 4 07/18 15:10 Order name: EKG; Complete Time: 15:12 07/18 15:10 Order name: Cardiac monitoring; Complete Time: 15:17 07/18 15:10 Order name: EKG - Nurse/Tech; Complete Time: 16:04 07/18 15:10 Order name: IV Saline Lock; Complete Time: 15:51 07/18 15:10 Order name: Labs collected and sent; Complete Time: 15:51 07/18 15:10 Order name: O2 Per Protocol; Complete Time: 15:17 07/18 15:10 Order name: O2 Sat Monitoring; Complete Time: 15:17 07/18 15:27 Order name: CT Chest, Abdomen, Pelvis - W/Contrast; Complete Time: 19:17 07/18 15:42 Order name: Urine Dipstick-Ancillary (obtain specimen); Complete Time: 16:01 07/18 16:22 Order name: BRUNA; Complete Time: 16:29 EDMS Administered Medications: 15:45 Drug: Phenergan 12.5 mg Route: IVP; Site: right forearm; bp 17:32 Follow up: Response: Nausea is decreased bp 15:45 Drug: NS 0.9% 1000 ml Route: IV; Rate: 1 bolus; Site: right forearm; bp 17:32 Follow up: IV Status: Completed infusion; IV Intake: 1000ml bp 17:15 Drug: Phenergan 6.25 mg Route: IVP; Site: right forearm; bp 17:45 Follow up: Response: Nausea is decreased bp 17:44 Drug: Cipro 400 mg Volume: 200 ml; Route: IVPB; Infused Over: 60 mins; Site: right bp forearm; 19:47 Follow up: IV Status: Completed infusion rv Disposition: 07/19 08:47 Co-signature as Attending Physician, Jamil Waters MD I agree with the assessment and kdr plan of care. Disposition: 07/18/19 17:27 Hospitalization ordered by Tavares Dillon for Observation. Preliminary diagnosis are Infectious gastroenteritis and colitis, unspecified - Moderately severe right sided colitis, Fever presenting with conditions classified elsewhere. - Bed requested for Telemetry/MedSurg (observation). - Status is Observation. rv - Condition is Stable. - Problem is new. - Symptoms have worsened. Signatures: Dispatcher [employer] EDMS Jamil Waters MD MD [facility] Beverley Leal, [employer] ELEVATOR TENDER-[employer] Maryjane Salinas RN RN 2 Beau Zambrano RN RN Adrian Barrientos RN RN Lewis Yousif [facility] Corrections: (The following items were deleted from the chart) 07/18 15:36 15:21 Head/Face: Normocephalic, atraumatic. Eyes: Pupils equal round and reactive to snw light, extra-ocular motions intact. Lids and lashes normal. Conjunctiva and sclera are non-icteric and not injected. Cornea within normal limits. Periorbital areas with no swelling, redness, or edema. ENT: Nares patent. No nasal discharge, no septal abnormalities noted. Tympanic membranes are normal and external auditory canals are clear. Oropharynx with no redness, swelling, or masses, exudates, or evidence of obstruction, uvula midline. Mucous membranes moist. Neck: Trachea midline, no thyromegaly or masses palpated, and no cervical lymphadenopathy. Supple, full range of motion without nuchal rigidity, or vertebral point tenderness. No Meningismus. Chest/axilla: Normal chest wall appearance and motion. Nontender with no deformity. No lesions are appreciated. Cardiovascular: Regular rate and rhythm with a normal S1 and S2. No gallops, murmurs, or rubs. Normal PMI, no JVD. No pulse deficits. Respiratory: Lungs have equal breath sounds bilaterally, clear to auscultation and percussion. No rales, rhonchi or wheezes noted. No increased work of breathing, no retractions or nasal flaring. Abdomen/GI: Soft, non-tender, with normal bowel sounds. No distension or tympany. No guarding or rebound. No evidence of tenderness throughout. snw 18:54 17:27 Hospitalization Ordered by Tavares Dillon MD for Observation. Preliminary diagnosis dh4 is Infectious gastroenteritis and colitis, unspecified - Moderately severe right sided colitis; Fever presenting with conditions classified elsewhere. Bed requested for Telemetry/MedSurg (observation). Status is Observation. Condition is Stable. Problem is new. Symptoms have worsened. sn 19:50 18:54 07/18/2019 17:27 Hospitalization Ordered by Tavares Dillon MD for Observation. rv Preliminary diagnosis is Infectious gastroenteritis and colitis, unspecified - Moderately severe right sided colitis; Fever presenting with conditions classified elsewhere. Bed requested for Telemetry/MedSurg (observation). Status is Observation. Condition is Stable. Problem is new. Symptoms have worsened. dh4
[2019-07-18] MEDS ORDERED: CIPROFLOXACIN 400mg IV 400 MG/200 ML BAG IV ONE (17:45)
[2019-07-18] MEDS ORDERED: ACETAMINOPHEN 500 MG TAB PO ONE (21:07)
[2019-07-18] MEDS: D5 0.45 NS 1,000 ML IV SCH (21:10)
[2019-07-18] MEDS: PROMETHAZINE INJ 25 MG/ML AMP IV PRN (21:29)
[2019-07-18 21:36] LABS: Anisocytosis 2+; Blood Morphology Comment NOTED (NOT SEEN); Ovalocytes SLIGHT; Platelet Estimate DECR; Poikilocytosis SLIGHT; Urine White Blood Cell Casts OK
[2019-07-18] MEDS ORDERED: DIPHENHYDRAMINE 25 MG TAB/CAP PO PRN (21:56)
[2019-07-18 22:17] VITALS: BMI 24.1
[2019-07-18] MEDS: MELATONIN 5 MG TABLET PO SCH (23:44)
[2019-07-19] MEDS: LEVOTHYROXINE SOD 0.125 MG TAB PO SCH (05:36)
[2019-07-19] MEDS: PROMETHAZINE INJ 25 MG/ML AMP IV PRN ×4 (05:36→21:41)
[2019-07-19] MEDS: D5 0.45 NS 1,000 ML IV SCH ×3 (05:37→20:14)
[2019-07-19 05:44] LABS: Absolute Lymphocytes (CBC) 1.1 K/uL (0.7-4.9); Basophils % 0.8 % (0-1.3); Hematocrit 31.7 % (36.0-45.0); Lymphocytes % 41.4 % (15.3-44.8); MPV 9.8 fL (7.6-11.3); RBC Red Blood Cell Count 3.73 M/uL (3.86-4.86)
[2019-07-19 06:07] LABS: BUN Blood Urea Nitrogen 5 mg/dL (7-18); Bicarbonate 25 mmol/L (21-32); Glucose Level 93 mg/dL (74-106); Potassium 3.4 mmol/L (3.5-5.1); Sodium Level 144 mmol/L (136-145)
[2019-07-19] MEDS: CIPROFLOXACIN 400mg IV 400 MG/200 ML BAG IV SCH ×3 (08:00→20:11)
[2019-07-19] MEDS ORDERED: POTASSIUM CL SA 10 MEQ TAB PO ONE (08:56)
[2019-07-19] MEDS: LACTOBACILLUS/ACIDOPHILUS TAB PO SCH (09:38)
[2019-07-19] MEDS: METRONIDAZOLE 250mg IVPB 250 MG/50 ML BAG IV SCH ×2 (09:38→16:15)
[2019-07-19] MEDS: GABAPENTIN 300 MG CAP PO SCH ×2 (09:39→20:12)
[2019-07-19] MEDS: ASCORBIC ACID 500 MG TABLET PO SCH (09:39)
[2019-07-19] MEDS: ACETAMINOPHEN 325 MG TABLET PO PRN (10:50)
[2019-07-19] MEDS: METRONIDAZOLE 500mg IVPB 500 MG/100 ML BAG IV SCH ×2 (16:49→16:51)
[2019-07-19] MEDS: DIPHENHYDRAMINE 25 MG TAB/CAP PO SCH (20:12)
[2019-07-19] MEDS: MELATONIN 5 MG TABLET PO SCH (20:12)
[2019-07-19] MEDS ORDERED: METRONIDAZOLE 250mg IVPB 250 MG/50 ML BAG IV SCH (21:00)
--- NOTE | 2019-07-19 22:19 | HP ---
Date of Admission: 07/18/2019 Chief Complaint: Diarrhea, abdominal pain. History Of Present Illness: A 59-year-old female, who is known to have cirrhosis and esophageal vari mavis as well as other medical problems, was brought to the emergency room because of fever of 102 and diarrhea. She had a CAT scan done and it was reported as colitis, moderate in the right-sided colon. Patient is admitted. The patient is being followed by Dr. Lacy and he just did a gastric emptyin g study recently. Past Medical History: As mentioned earlier, she has multiple medical issues that includes history of pain management issues, history of hypothyroidism, anxiety, and depression. Home Medicines: Please refer to the chart. Surgical Procedures: She had a pain pump put in. Allergies: SHE HAS MULTIPLE ALLERGIES THAT INCLUDES KEFLEX, ZITHROMAX, PENICILLIN, ROCEPHIN, SULFA. Review of Systems: Patient denied any chest pain or shortness of breath. Physical Examination: General: Revealed 59-year-old female, anxious. Vital Signs: Normal. HEENT: Negative. Neck: Supple. JVD negative. Chest: Clear. Heart: Regular. Abdomen: Mild to moderate tenderness in umbilical area. Bowel sounds present. Extremities: No edema. Laboratory Data: White count was normal, hemoglobin 11 g. Chem profile, BUN and creatinine normal. Potassium 3.4. Ammonia level 34. Procalcitonin normal. Assessment: 1.Right-sided colitis. 2.Known cirrhosis of the liver. 3.Known esophageal varices, requiring intervention in the past. 4.Chronic pain management issues. 5.Anxiety and neurosis. Plan: N.p.o., IV fluids, IV Cipro, Flagyl. GI consultation has done. ÓSCAR/DAMI Voice ID: [id number]
[2019-07-20] MEDS: METRONIDAZOLE 500mg IVPB 500 MG/100 ML BAG IV SCH ×3 (00:06→17:17)
[2019-07-20] MEDS: D5 0.45 NS 1,000 ML IV SCH ×4 (00:09→20:14)
[2019-07-20] MEDS: LEVOTHYROXINE SOD 0.125 MG TAB PO SCH (05:36)
[2019-07-20] MEDS: CIPROFLOXACIN 400mg IV 400 MG/200 ML BAG IV SCH (08:35)
[2019-07-20] MEDS: LACTOBACILLUS/ACIDOPHILUS TAB PO SCH (08:36)
[2019-07-20] MEDS: GABAPENTIN 300 MG CAP PO SCH ×2 (08:36→21:50)
[2019-07-20] MEDS: ASCORBIC ACID 500 MG TABLET PO SCH (08:36)
[2019-07-20] MEDS: PROMETHAZINE INJ 25 MG/ML AMP IV PRN ×3 (10:21→21:57)
[2019-07-20 12:06] LABS: Absolute Lymphocytes (CBC) 1.1 K/uL (0.7-4.9); Hematocrit 34.7 % (36.0-45.0); Lymphocytes % 31.7 % (15.3-44.8); MPV 10.1 fL (7.6-11.3); RBC Red Blood Cell Count 4.08 M/uL (3.86-4.86)
[2019-07-20 12:17] LABS: ALT/SGPT 14 U/L (12-78); AST/SGOT 25 U/L (15-37); Albumin 2.8 g/dL (3.4-5.0); Alkaline Phosphatase 91 U/L (45-117); BUN Blood Urea Nitrogen 4 mg/dL (7-18); Bicarbonate 27 mmol/L (21-32); Bilirubin Total 0.6 mg/dL (0.2-1.0); Glucose Level 89 mg/dL (74-106); Potassium 3.8 mmol/L (3.5-5.1); Protein, Total 6.9 g/dL (6.4-8.2); Sodium Level 144 mmol/L (136-145)
[2019-07-20 13:00] LABS: C.diff Antigen/Toxin Ag pos : Tox neg (NEG : NEG)
[2019-07-20] MEDS ORDERED: VANCOMYCIN ORAL SOLN 250 MG/5 ML OSYR PO SCH (13:54)
--- NOTE | 2019-07-20 14:05 | P.PN ---
Subjective Date of Service: 07/20/19 Primary Care Provider: Dr. Dillon Chief Complaint: Abdominal pain Patient seen and examined chart reviewed and case discussed with RN and Dr. Cordero. Hospitalist service covering for Dr. Dillon over the weekend. Patient continues to have loose bowel movements, diarrhea and abdominal pain. Does complain of some nausea. Was able to tolerate her liquid diet. Review of Systems 10-point ROS is otherwise unremarkable Physical Examination - Vital Signs Temperature: 97.7 F Blood Pressure: 116/58 Pulse: 99 Respirations: 16 Pulse Ox (%): 100 - Physical Exam General: Alert, Oriented x3, Mild distress, Other (Ill-appearing female) HEENT: Atraumatic, PERRLA, Other (Dry mucous membranes), EOMI Neck: Supple, JVD not distended Respiratory: Clear to auscultation bilaterally, Normal air movement Cardiovascular: No edema, Normal pulses, Regular rate/rhythm, Normal S1 S2 Gastrointestinal: Normal bowel sounds, No rebound, No guarding, Distended, Tenderness Musculoskeletal: No tenderness Integumentary: No rashes Neurological: Normal speech, Normal strength at 5/5 x4 extr, Normal tone, Cranial nerves 3-12 intact, Normal affect - Studies Laboratory Tests 07/18/19 07/18/19 07/18/19 15:40 15:40 15:40 WBC 4.3 RBC 4.00 Hgb 11.0 L Hct 33.8 L MCV 84.5 MCH 27.5 MCHC 32.6 RDW 23.0 H Plt Count 124 L MPV 9.6 Neutrophils % 79.3 H Lymphocytes % 12.4 L Monocytes % 7.6 Eosinophils % 0.4 Basophils % 0.3 Absolute Neutrophils 3.4 Absolute Lymphocytes 0.5 L Absolute Monocytes 0.3 Absolute Eosinophils 0.0 Absolute Basophils 0.0 Poikilocytosis Slight Anisocytosis 2+ Ovalocytes Slight Morphology Comment Noted PT 13.5 H INR 1.15 Sodium 140 Potassium 3.4 L Chloride 110 H Carbon Dioxide 23 BUN 6 L Creatinine 0.77 Estimated GFR 76 L Glucose 108 H Lactic Acid Calcium 8.4 L Magnesium 1.8 Total Bilirubin 1.2 H Direct Bilirubin 0.3 H AST 25 ALT 17 Alkaline Phosphatase 113 Ammonia NT-Pro-B Natriuret Pep 108 Serum Total Protein 7.6 Albumin 3.2 L Globulin 4.4 H Albumin/Globulin Ratio 0.7 L Procalcitonin Urine pH Ur Specific [place] Glucose (UA)(Auto) Urine Ketones Urine Blood Urine Nitrite Ur Leukocyte Esterase Urine RBC Urine WBC Ur Squamous Epith Cells Urine Bacteria Urine Culture Reflexed Urine Total Protein 07/18/19 07/18/19 07/18/19 15:40 15:40 15:40 WBC RBC Hgb Hct MCV MCH MCHC RDW Plt Count MPV Neutrophils % Lymphocytes % Monocytes % Eosinophils % Basophils % Absolute Neutrophils Absolute Lymphocytes Absolute Monocytes Absolute Eosinophils Absolute Basophils Poikilocytosis Anisocytosis Ovalocytes Morphology Comment PT INR Sodium Potassium Chloride Carbon Dioxide BUN Creatinine Estimated GFR Glucose Lactic Acid 1.8 Calcium Magnesium Total Bilirubin Direct Bilirubin AST ALT Alkaline Phosphatase Ammonia 34 NT-Pro-B Natriuret Pep Serum Total Protein Albumin Globulin Albumin/Globulin Ratio Procalcitonin < 0.05 Urine pH Ur Specific [place] Glucose (UA)(Auto) Urine Ketones Urine Blood Urine Nitrite Ur Leukocyte Esterase Urine RBC Urine WBC Ur Squamous Epith Cells Urine Bacteria Urine Culture Reflexed Urine Total Protein 07/18/19 07/18/19 16:10 16:16 WBC RBC Hgb Hct MCV MCH MCHC RDW Plt Count MPV Neutrophils % Lymphocytes % Monocytes % Eosinophils % Basophils % Absolute Neutrophils Absolute Lymphocytes Absolute Monocytes Absolute Eosinophils Absolute Basophils Poikilocytosis Anisocytosis Ovalocytes Morphology Comment PT INR Sodium Potassium Chloride Carbon Dioxide BUN Creatinine Estimated GFR Glucose Lactic Acid Calcium Magnesium Total Bilirubin Direct Bilirubin AST ALT Alkaline Phosphatase Ammonia NT-Pro-B Natriuret Pep Serum Total Protein Albumin Globulin Albumin/Globulin Ratio Procalcitonin Urine pH 5.5 Ur Specific [place] 1.005 Glucose (UA)(Auto) Negative Urine Ketones Negative Urine Blood 1+ H Urine Nitrite Negative Ur Leukocyte Esterase Negative Urine RBC <5 Urine WBC <5 Ur Squamous Epith Cells <5 Urine Bacteria <20 Urine Culture Reflexed Not needed Urine Total Protein Negative Microbiology Data (last 24 hrs): 07/18/19 16:10 Clean Catch Urine [place] Count - Final BETWEEN 10,000 & 100,000 CFU/ML 07/18/19 16:10 Clean Catch Urine - Final MIXED SOWMYA. C. diff antigen positive Medications List Reviewed: Yes Assessment And Plan - Plan Assessment and plan: 1. C. diff colitis. CT scan reviewed. Shows severe right-sided colitis. C. diff antigen is positive and despite toxin being negative patient has signs and symptoms of C. diff. Will discontinue Cipro continue Flagyl and add p.o. vancocin. Continue isolation. add pro biotic 's. 2. Intractable nausea. No vomiting. Patient currently on liquid diet. Will continue IV anti emetics and IV fluids 3. Hypokalemia. Replaced. Continue monitor 4. Leukopenia. Patient is neutropenic however on today's CBC absolute neutrophils now up to 1500. Patient is at risk for severe infections and his immunocompromised. 5. Thrombocytopenia. Likely due to history of liver cirrhosis. Continue to monitor 6. Known cirrhosis of the liver. Continue with low sodium and fluid restriction. 7. Known esophageal varices, requiring intervention in the past. Appreciate GI input 8. Chronic pain management issues. Continue home medication regimen. Stable 9. Anxiety and depression. Stable 10. Adenopathy. Found to have a pretracheal and aortocaval lymph nodes 10 mm. Will need repeat CT scan as outpatient to continue monitoring and for signs of resolution Patient is unable to go home due to inability to tolerate a solid diet. Continues to have significant amount of diarrhea, abdominal pain. Will treat for C. diff. Monitor for signs of colonic perforation due to severe colitis. DVT prophylaxis with SCDs Discharge Plan: Home Plan to discharge in: 48 Hours - Code Status/Comfort Care Code Status Assessed: Yes
[2019-07-20] MEDS: VANCOMYCIN ORAL SOLN 250 MG/5 ML OSYR PO SCH (17:18)
[2019-07-20] MEDS: ACETAMINOPHEN 325 MG TABLET PO PRN (17:24)
[2019-07-20] MEDS: DIPHENHYDRAMINE 25 MG TAB/CAP PO SCH (21:50)
[2019-07-20] MEDS: MELATONIN 5 MG TABLET PO SCH (21:50)
[2019-07-21] MEDS: METRONIDAZOLE 500mg IVPB 500 MG/100 ML BAG IV SCH ×3 (00:36→17:57)
[2019-07-21] MEDS: VANCOMYCIN ORAL SOLN 250 MG/5 ML OSYR PO SCH ×4 (00:36→17:57)
[2019-07-21] MEDS: D5 0.45 NS 1,000 ML IV SCH ×3 (03:35→21:00)
[2019-07-21] MEDS: PROMETHAZINE INJ 25 MG/ML AMP IV PRN ×4 (03:43→22:04)
[2019-07-21] MEDS: LEVOTHYROXINE SOD 0.125 MG TAB PO SCH (05:20)
[2019-07-21 06:35] LABS: Absolute Lymphocytes (CBC) 1.2 K/uL (0.7-4.9); Basophils % 0.8 % (0-1.3); Hematocrit 31.1 % (36.0-45.0); Lymphocytes % 44.2 % (15.3-44.8); MPV 10.2 fL (7.6-11.3); RBC Red Blood Cell Count 3.66 M/uL (3.86-4.86)
[2019-07-21 07:07] LABS: BUN Blood Urea Nitrogen 3 mg/dL (7-18); Bicarbonate 25 mmol/L (21-32); Glucose Level 103 mg/dL (74-106); Potassium 3.4 mmol/L (3.5-5.1); Sodium Level 145 mmol/L (136-145)
[2019-07-21 07:31] LABS: Anisocytosis 1+; Blood Morphology Comment NOTED (NOT SEEN); Platelet Estimate DECR; Urine White Blood Cell Casts OK
[2019-07-21] MEDS: LACTOBACILLUS/ACIDOPHILUS TAB PO SCH (09:44)
[2019-07-21] MEDS: GABAPENTIN 300 MG CAP PO SCH ×2 (09:44→21:41)
[2019-07-21] MEDS: ASCORBIC ACID 500 MG TABLET PO SCH (09:44)
--- NOTE | 2019-07-21 10:23 | P.PN ---
Subjective Date of Service: 07/21/19 Primary Care Provider: Dr. Dillon Chief Complaint: Abdominal pain Subjective: Improving Patient seen and examined chart reviewed and case discussed with RN and Dr. Cordero. Hospitalist service covering for Dr. Dillon over the weekend. Patient continues to have loose bowel movements, diarrhea and abdominal pain. Does complain of some nausea. Was able to tolerate her liquid diet. Had 1 episode of diarrhea today Review of Systems 10-point ROS is otherwise unremarkable Physical Examination - Vital Signs Temperature: 97.3 F Blood Pressure: 107/58 Pulse: 68 Respirations: 16 Pulse Ox (%): 98 - Physical Exam General: Alert, Oriented x3, Mild distress, Other (ill appearing female) HEENT: Atraumatic, PERRLA, EOMI Neck: Supple, JVD not distended Respiratory: Clear to auscultation bilaterally, Normal air movement Cardiovascular: No edema, Normal pulses, Regular rate/rhythm, Normal S1 S2 Gastrointestinal: Normal bowel sounds, Soft and benign, Non-distended, No rebound, No guarding, Tenderness Musculoskeletal: No tenderness Integumentary: No rashes Neurological: Normal speech, Normal strength at 5/5 x4 extr, Normal tone, Cranial nerves 3-12 intact, Normal affect - Studies Laboratory Data (last 24 hrs) 07/20/19 11:51: Sodium 144, Potassium 3.8, BUN 4 L, Creatinine 0.66, Glucose 89 , Total Bilirubin 0.6, AST 25, ALT 14, Alkaline Phosphatase 91 07/20/19 11:51: WBC 3.4 L D, Hgb 11.0 L, Hct 34.7 L, Plt Count 115 L Microbiology Data (last 24 hrs): 07/18/19 16:10 Clean Catch Urine [place] Count - Final BETWEEN 10,000 & 100,000 CFU/ML 07/18/19 16:10 Clean Catch Urine - Final MIXED SOWMYA. Medications List Reviewed: Yes Assessment And Plan - Plan Assessment and plan: 1. C. diff colitis. CT scan reviewed. Shows severe right-sided colitis. C. diff antigen is positive and despite toxin being negative patient has signs and symptoms of C. diff. Continue Flagyl and p.o. vancocin. Continue isolation. continue pro biotic 's. 2. Intractable nausea. No vomiting. Patient currently on liquid diet. Will continue IV anti emetics and IV fluids. Advance diet as tolerated. 3. Hypokalemia. Replaced. Continue monitor 4. Leukopenia. Patient is neutropenic however on today's CBC absolute neutrophils now up to 900. Patient is at risk for severe infections and is immunocompromised. 5. Thrombocytopenia. Likely due to history of liver cirrhosis. Continue to monitor 6. Known cirrhosis of the liver. Continue with low sodium and fluid restriction. 7. Known esophageal varices, requiring intervention in the past. Appreciate GI input 8. Chronic pain management issues. Continue home medication regimen. Stable 9. Anxiety and depression. Stable 10. Adenopathy. Found to have a pretracheal and aortocaval lymph nodes 10 mm. Will need repeat CT scan as outpatient to continue monitoring and for signs of resolution. Patient made aware of CT scan findings Patient is unable to go home due to inability to tolerate a solid diet. Continues to have significant amount of diarrhea, abdominal pain. Will treat for C. diff. Monitor for signs of colonic perforation due to severe colitis. DVT prophylaxis with SCDs Transfer service to Dr. Dillon in am. Plan to discharge in: 24 Hours - Code Status/Comfort Care Code Status Assessed: Yes
[2019-07-21] MEDS ORDERED: MELATONIN 5 MG TABLET PO ONE ×2 (21:09→21:22)
[2019-07-21] MEDS: DIPHENHYDRAMINE 25 MG TAB/CAP PO SCH (21:41)
[2019-07-21] MEDS: MELATONIN 5 MG TABLET PO SCH (21:42)
[2019-07-22] MEDS: VANCOMYCIN ORAL SOLN 250 MG/5 ML OSYR PO SCH ×3 (00:02→11:51)
[2019-07-22] MEDS: METRONIDAZOLE 500mg IVPB 500 MG/100 ML BAG IV SCH ×2 (00:02→09:04)
[2019-07-22 04:18] LABS: Absolute Lymphocytes (CBC) 1.3 K/uL (0.7-4.9); Basophils % 0.8 % (0-1.3); Hematocrit 30.5 % (36.0-45.0); Lymphocytes % 41.8 % (15.3-44.8); MPV 9.2 fL (7.6-11.3); RBC Red Blood Cell Count 3.61 M/uL (3.86-4.86)
[2019-07-22 04:41] LABS: BUN Blood Urea Nitrogen 4 mg/dL (7-18); Bicarbonate 26 mmol/L (21-32); Glucose Level 111 mg/dL (74-106); Potassium 3.4 mmol/L (3.5-5.1); Sodium Level 144 mmol/L (136-145)
[2019-07-22] MEDS: LEVOTHYROXINE SOD 0.125 MG TAB PO SCH (05:23)
[2019-07-22] MEDS: D5 0.45 NS 1,000 ML IV SCH ×2 (05:23→15:34)
[2019-07-22] MEDS: PROMETHAZINE INJ 25 MG/ML AMP IV PRN ×2 (05:24→10:34)
[2019-07-22] MEDS: GABAPENTIN 300 MG CAP PO SCH (09:04)
[2019-07-22] MEDS: ASCORBIC ACID 500 MG TABLET PO SCH (09:04)
[2019-07-22] MEDS: LACTOBACILLUS/ACIDOPHILUS TAB PO SCH (09:04)
[2019-07-22 10:45] VITALS: O2SAT 96
[2019-07-22 17:12] VITALS: BP 149/68; TEMP 98.8
== END 2019-07-22 18:00 | disposition home or self-care (01) | DRG 373 ==
LOC: ER 14:48 → ERHOLD 18:02 → 4TH 19:48 → OBSVTOIN 07-20 20:38
PROVIDERS: ADMIT Internal Medicine; ATTEND Internal Medicine
DX: A04.72 Enterocolitis due to Clostridium difficile, not specified as recurrent (principal); E87.6 Hypokalemia; D72.819 Decreased white blood cell count, unspecified; D69.6 Thrombocytopenia, unspecified; K74.60 Unspecified cirrhosis of liver; F41.8 Other specified anxiety disorders; R59.9 Enlarged lymph nodes, unspecified
CPT/HCPCS: 36415; 71045; 71260; 74177; 80048; 80053; 80076; 81003; 81015; 82140; 83605; 83735; 83880; 84145; 85025; 85610; 87086; 87088; 87324; 87449; 87493; 87804; 96361; 96365; 96366; 96375; 99285; G0378; J0744; J2550; J7030; J7799; Q9967

== ENCOUNTER 2022-05-27 11:22 | Emergency (ER) | payer OTHER ==
--- OUTSIDE RECORDS SUMMARY | 2022-05-27 11:30 | XMS REPORT | Continuity of Care Document ---
:1960 Author Organization [facility] t Address [address] [place] [address] Care Team Providers Name Role Phone Tavares Whyte Primary Care Physician Unavailable YEISON WHIPPLE Attending Clinician Unavailable Zoila Pete Attending Clinician Unavailable Yeison Whipple MD Attending Clinician Sheng Galan CRNA Attending Clinician Samy Malik MD Attending Clinician [phone] Doctor Unassigned, [place] Attending Clinician Unavailable Only, Adc Test Attending Clinician Unavailable DONAVON MISTRY Attending Clinician Unavailable YRN PORTILLO Attending Clinician Unavailable YEISON WHIPPLE Admitting Clinician Unavailable Tavares Whyte Admitting Clinician Unavailable Yeison Whipple MD Admitting Clinician DONAVON MISTRY Admitting Clinician Unavailable YRN PORTILLO Admitting Clinician Unavailable Payers Payer Name Policy Type Policy Number Effective Date Expiration Date Ziyad [place] [employer] [id number] 2007 00:00:00 SPRING Problems Condition Condition Condition Status Onset Resolution Last Treating Co mments Source Name Details Category Date Date Treatment Clinician Date Hepatic Hepatic Disease Active [facility] encephal[facility] encephalop 8-26 Montse dontae sinha athy 00:00: Medical 00 Center 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 hypertensi 01-21 Montse kes on on 00:00: Medical Center Fatty Fatty Disease Active [facility] liver liver 01[facility]21 [facility] [place] Hypoxia Hypoxia Disease Active [facility] 12[facility]05 [facility] 00:[facility]: [facility] 00 [place] Hypernatre Hypernatre Disease Active [facility] jonathan jonathan 12-05 [facility] 00:[facility]: [facility] [place] Acute GI Acute GI Disease [facility] bleeding bleeding 12[facility]05 [facility] 00:[facility]: [facility] [place] Esophageal Esophageal Disease Active [facility] varices varices 12-05 [facility] 00:00: Medical [place] Cirrhosis, Cirrhosis, Disease Active [facility] nonalcohol nonalcohol 12-04 [facility] kes ic ic 00:00: Medical [place] Acute Acute Disease Active [facility] hepatic hepatic 12-04 [facility] encephalop encephalop 00:00: Me dical athy athy 00 [place] No known No known Disease Unive rs active active ity of problems problems [facility] Allergies, Adverse Reactions, Alerts Allergy Allergy Status Severity Reaction(s) Onset Inactive Treating Comm ents Source Name Type Date Date Clinician Penicill Propensi Active RASH [facility] ty to 12-04 [facility] adverse 00:00: Medical reaction 00 Center s Steroids Propensi Active Other (See Generaliz [facility] ty to Comments) 12-04 ed [facility] adverse 00:00: swelling Medical reaction Center s Steroids Propensi Active Other (See Generaliz [facility] ty to Comments) 12-04 ed [facility] adverse 00:00: swelling Medical reaction 00 Center s Sulfur Propensi Active Anaphylaxis [facility] ty to 12-04 [facility] adverse 00:00: Medical reaction 00 Center s Rofecoxi Propensi Active Swelling [facility] b ty to 12-04 [facility] adverse 00:00: Medical reaction 00 Center s Bee Propensi Active Anaphylaxis BEE [facility] ty to 12-04 [facility] adverse 00:00: Medical reaction 00 Center s Cephalex Propensi Active Rash [facility] in ty to 12-04 [facility] adverse 00:00: Medical reaction Center s Eszopicl Propensi Active Nausea Only, headach e [facility] one ty to Other (See 12-04 [facility] adverse Comments) 00:00: Medica l reaction 00 Center s Meloxica Propensi Active Swelling [facility] m ty to 12-04 [facility] adverse 00:00: Medical reaction 00 Center s Oxycodon Propensi Active Nausea And 2019- ANYTHING [facility] e ty to Vomiting 12-04 IN THE [facility] adverse 00:00: OXY Medical reaction 00 FAMILY Center s Penicill Propensi Active 2018- RASH [facility] ins ty to 12-04 [facility] adverse 00:00: Medical reaction 00 Center s Ceftriax Propensi Active Rash [facility] one ty to 12-04 [facility] adverse 00:00: Medical reaction 00 Center s Shrimp Propensi Active Rash And [facility] ty to 12-04 generaliz [facility] adverse 00:00: ed Medical reaction 00 swelling Center s Sulfa Propensi Active Rash Univers (Sulfona ty to 01-02 ity of mide adverse 00:00: [place] Antibiot reaction 00 Medica l ics) s to Branch drug BEE DRUG Active High Swelling Univers STING / INGREDI 01-02 ity of VENOM 00:00: [place] 00 Medical Branch ZOLPIDEM DRUG Active Med Other-Cmnt Univ ers TARTRATE INGREDI 01-02 ity of 00:00: [place] [facility] CEPHALEX DRUG Active Med Rash Univers IN INGREDI 01-02 ity of 00:00: [place] 00 Medical Branch ESZOPICL DRUG Active Med N/V Univers ONE INGREDI 01-02 ity of 00:00: [place] 00 Medical Branch NSAIDS Drug Active Med Swelling Univers (NON-KIKO Class 01-02 ity of ROIDAL 00:00: [place] ANTI-INF 00 Medical LAMMATOR Branch Y DRUG) OXYCODON DRUG Active Med N/V Univers E INGREDI 01-02 ity of 00:00: [place] 00 Medical Branch PENICILL Drug Active Med Rash Univers INS Class 01-02 ity of 00:00: [place] 00 Medical Branch PREDNISO DRUG Active Med Swelling Univer s NE INGREDI 01-02 ity of 00:00: [place] [facility] SULFA Drug Active Med Rash Univers (SULFONA Class 01-02 ity of MIDE 00:00: [place] ANTIBIOT 00 Medical ICS) Branch Zolpidem Propensi Active Other - See Sleepwal k Univers Tartrate ty to comments 01-02 ing ity of adverse 00:00: [place] reaction 00 Medical s to Branch drug Bee Propensi Active Swelling Univer s Sting / ty to 01-02 ity of Venom adverse 00:00: [place] reaction Medical s to Branch drug Cephalex Propensi Active Rash Univer s in ty to 01-02 ity of adverse 00:00: [place] reaction 00 Medical s to Branch drug Eszopicl Propensi Active Nausea Headache Univ ers one ty to and/or 01-02 ity of adverse Vomiting 00:00: [place] reaction Medical s to Branch drug Nsaids Propensi Active Swelling 08/10/15 Unive rs (Non-Kiko ty to 01-02 Pt denies ity o f roidal adverse 00:00: allergies [place] Anti-Inf reaction to NSAIDS Med ical lammator s to Branch y Drug) drug Oxycodon Propensi Active Nausea Univer s e ty to and/or 01-02 ity of adverse Vomiting 00:00: [place] reaction Medical s to Branch drug Penicill Propensi Active Rash Univer s ins ty to 01-02 ity of adverse 00:00: [place] reaction Medical s to Branch drug Predniso Propensi Active Swelling Pt states U nivers ne ty to 01-02 she ity of adverse 00:00: swells [place] reaction 00 with Medical s to steroids Branch drug predniso DA Active [place] [facility], 11-12 [place] LYMPH NODE 00:00: d SWELLING [facility] meloxica DA Active [place] [facility]WE[facility] m 11-12 [place] 00:00: d 00 [facility] rofecoxi DA Active [place] [facility] b 11-12 [place] 00:00: d 00 [facility] Center ceftriax DA Active [place] RASH [facility] one 11-12 [place] sodium 00:00: d 00 Medical Center Cephalex DA Active [place] RASH [facility] in 11-12 [place] Monohydr 00:00: d ate 00 Medical Center Penicill DA Active [place] RASH [facility] ins 11-12 [place] 00:00: d 00 [facility] Sulfa DA Active [place] RASH [facility] (Sulfona 11-12 [place] mide 00:00: d Antibiot 00 Medical ics) Center Shellfis DA Active [place] RASH [facility] h 11-12 [place] 00:00: d 00 Medical Center STEROIDS DA Active U SWELLING [facility] 02-04 [place] 00:00: d 00 Medical Center BEE DA Active [facility] ANAPHYLACTIC [facility] STING 02-01 [place] 00:00: d 00 Medical Center Social History Social Habit Start Date Stop Date Quantity Comments Source History of tobacco Cigarette Smoker University of use [facility] Exposure to Not sure University SARS-CoV-2 (event) [place] [facility] History SDOH [facility] Alcohol Std Drinks Medica l Center History SDOH [facility] Alcohol Binge Medical Tian ter History SDOH [facility] Alcohol Comment Medical C enter Cigarettes smoked 2019-11-01 2019-11-01 Univers ity of current (pack per 00:00:00 00:00:00 [facility] ) - Reported Branch Alcohol intake 2019-01-21 2019-01-[address] [facility] 00:00:00 00:00:00 non-drinker of Medical Ce nter alcohol (finding) Tobacco use and 2019-01-18 2019-01-[address] [facility] [address] Montse kes exposure 00:00:00 00:00:00 Medical Center History SDOH 2019-01-18 2019-01-[address] [facility] Alcohol Frequency 00:00:00 00:00:[address] [facility] Sex Assigned At [address] [address] Montse kes 00:00:00 00:00:00 [facility] Smoking Status Start Date Stop Date Source Current every day 2019-11-01 00:00:00 [facility] smoker Medical Branch Former smoker 2019-01-18 00:00:00 2019-01-18 00:00:[address] [facility] [address] [facility] Medications Ordered Filled Start Stop Current Ordering Indication Dosage Frequency Signature Comments Components Source Medication Medication Date Date Medication? Clinician (SIG) Name Name gabapentin Yes 600mg Take 600 Un roni (NEURONTIN) 6-08 mg by ity of 600 mg 13:38: mouth 3 [place] tablet 28 (three) Medical times Branch daily. gabapentin Yes 600mg Take 600 Un roni (NEURONTIN) 6-08 mg by ity of 600 mg 13:38: mouth 3 [place] tablet 28 (three) Medical times Branch daily. gabapentin 2020-0 Yes 600mg Take 600 Un roni (NEURONTIN) 6-08 mg by ity of 600 mg 13:38: mouth 3 [place] tablet 28 (three) Medical times Branch daily. lactated 2020-0 Yes 1000mL at 75 Univer s ringers IV 6-08 mL/hr, ity of infusion 13:15: 1,000 mL, [place] 1,000 mL 00 IV Medical Infusion, Branch CONTINUOUS , Starting Mon11/04/19 at 0815, Until Discontinu ed, Routine, PACU FENTanyl PF 2020-0 Yes 25ug 25 mcg, Uni vers (SUBLIMAZE 6-08 Slow IV ity of (PF)) 13:10: Push, [place] injection 44 Q5MIN PRN, Medi all 25 mcg 4 doses, Branch Starting 11/04/19 at 0810, Until Discontinu ed, Routine, Pain (scale 7-10), PACU FENTanyl PF 2020-0 Yes 25ug 25 mcg, Uni vers (SUBLIMAZE 6-08 Slow IV ity of (PF)) 13:10: Push, [place] injection 44 Q5MIN PRN, Medi all 25 mcg 4 doses, Branch Starting Mon11/04/19 at 0810, Until Discontinu ed, Routine, Pain (scale 4-6), PACU ondansetron 2020-0 Yes 4mg 4 mg, Slow Univers (ZOFRAN 6-08 IV Push, ity of (PF)) 13:10: PRN, 1 [place] injection 4 44 dose, Medical mg Starting Branch Mon11/04/19 at 0810, Until Discontinu ed, Routine, Nausea and Vomiting (N/V), PACU sodium 2020-0 Yes PRN, Univers chloride 6-08 Starting ity of 0.9 % 13:10: Mon11/04/19 [place] irrigation 00 at 0810, Medic al solution Until Branch Discontinu ed, Intra-op ondansetron 2020-0 2020- No Slow IV Un roni (ZOFRAN 6-08 06-08 Push, ONCE ity o f (PF)) 12:50: 13:05 INTRA [place] injection 00 :06 PROCEDURE, Medi all Starting Branch 6/8/20 at 0750, Until Mon11/04/19 at 0805, Routine, Intra-op bupivacaine 2020-0 Yes PRN, Univer s -epinephrin 11-03 Starting ity of e-pf 12:39: 11/04/19 [place] (SENSORCAIN 00 at 0739, Medi all E Until Branch W/EPINEPHRI Discontinu NE) 0.25 ed, %-1:200,000 Routine, injection Intra-op PHENYLephri 2020-0 2020- No ONCE INTRA Univers ne 1000 11-03 PROCEDURE, ity o f mcg/10 mL 12:39: 13:05 Starting Chi as in 0.9% 00 :06 Mon11/04/19 Medica l NaCl at 0739, Branch syringe Until Mon11/04/19 at 0805, Routine, Intra-op ciprofloxac 2020-0 2020- No Administer Univers in in 5 % 11-03 over 60 ity of dextrose 12:38: 13:05 Minutes, [place] (CIPRO) 00 :06 ONCE INTRA Medica l piggyback PROCEDURE, Bran ch Starting Mon11/04/19 at 0738, Until Mon11/04/19 at 0805, SHIVA, Intra-op lidocaine 2020-0 2020- No ONCE INTRA U nivers 1% 11-03 PROCEDURE, ity of (XYLOCAINE) 12:25: 13:05 Starting [place] 100 mg/10 00 :06 11/04/19 Medi all mL (1 %) at 0725, Branch injection Until Mon11/04/19 at 0805, Routine, Intra-op succinylcho 2020-0 2020- No Intravenou Univers line 11-0308 s, ONCE ity of (QUELICIN) 12:25: 13:05 INTRA [place] injection 00 :06 PROCEDURE, Medi all Starting Branch 11/04/19 at 0725, Until Mon11/04/19 at 0805, Routine, Intra-op propofol IV 2020-0 2020- No Intravenou Univers infusion 11-0308 s, ONCE ity of 12:25: 13:05 INTRA [place] 00 :06 PROCEDURE, Medical Starting Branch 11/04/19 at 0725, Until Mon11/04/19 at 0805, Routine, Intra-op FENTanyl PF 2020-0 2020- No Intravenou Univers (SUBLIMAZE 11-03-08 s, ONCE ity o f (PF)) 12:25: 13:05 INTRA [place] injection 00 :06 PROCEDURE, Medi all Starting Branch 11/04/19 at 0725, Until 11/04/19 at 0805, Routine, Intra-op midazolam 2019- 2020- No IV Push, Uni vers (VERSED) 11-03-08 ONCE INTRA ity of injection 12:17: 13:05 PROCEDURE, [place] 00 :06 Starting Medical 11/04/19 Branch at 0717, Until Mon11/04/19 at 0805, Routine, Intra-op lactated 2019- No 1000mL at 20 Unive rs ringers IV 11-03-08 mL/hr, ity of infusion 11:45: 12:23 1,000 mL, Chi as 1,000 mL 00 :00 IV Medical Infusion, Branch ONCE, 1 dose, [facility] 11/04/19 at 0645, Routine, DSU Pre-op Levothyroxi 2019- No 150ug Take 150 Univers ne 10-31-05 mcg by ity of (TIROSINT) 16:53: 00:00 mouth [place] 150 mcg Cap 34 :00 daily. Medica l Branch pravastatin 2019- No 40mg Take 40 mg Univers (PRAVACHOL) 10-31-05 by mouth ity of 40 mg 16:53: 00:00 at [place] tablet 34 :00 bedtime. Medical Branch metoprolol 2019- No 100mg Take 100 U nivers succinate 10-31 06-05 mg by ity of XL (TOPROL 16:53: 00:00 mouth [place] XL) 100 mg 34 :00 daily. Medical 24 hr Branch tablet HYDROcodone 2020- No 1{tbl} Take 1 Tab Univers -acetaminop 10-31-05 by mouth 2 i ty of hen (NORCO) 16:53: 00:00 (two) [place] 10-325 mg 34 :00 times Medical tablet daily. Branch cyclobenzap 2020- No 10mg Take 10 mg Univers rine 10-31 06-05 by mouth 2 ity of (FLEXERIL) 16:53: 00:00 (two) [place] 10 mg 34 :00 times Medical tablet daily. Branch diazepam 2020-0 2020- No 10mg Take 10 mg Un roni (VALIUM) 10 10-31-05 by mouth ity of mg tablet 16:53: 00:00 at [place] 34 :00 bedtime. Medical Branch diphenhydrA 2019- No 50mg Take 50 mg Univers MINE 10-31-05 by mouth ity of (BENADRYL) 16:53: 00:00 at [place] 25 mg 34 :00 bedtime. Medical capsule Branch aspirin 81 2019- No 81mg Take 81 mg Univers mg EC 10-3105 by mouth ity of tablet 16:53: 00:00 daily. [place] 34 :00 Medical Branch lansoprazol 2019- No 15mg Take 15 mg Univers e 10-31 by mouth ity of (PREVACID) 16:53: 00:00 daily. [place] 15 mg 34 :00 Medical capsule Branch ACETAMINOPH 2019- No 1{tbl} Take 1 Tab Univers EN/DIPHENHY 10-31 by mouth ity of DRAMINE 16:53: 00:00 at bedtime Chi as (TYLENOL PM 34 :00 as needed. Me dical ORAL) Branch SUFentanil No 25ug 25 mcg by U tunde in Total 10-31 Intratheca ity of Volume 16:53: 00:00 l route [place] 34 :00 every 1 Medical (one) Branch hour. Indication s: Pain pump pregabalin 2019- No 75mg Take 75 mg Univers (LYRICA) 75 10-31-05 by mouth 3 i ty of mg capsule 16:53: 00:00 (three) Chi as 34 :00 times Medical daily. Branch losartan 2019- No 100mg Take 100 Uni vers (COZAAR) 10-31 06-05 mg by ity of 100 mg 16:53: 00:00 mouth [place] tablet 34 :00 daily. Medical Branch amitriptyli Yes 25mg Take 25 mg Univers ne 25 mg 5-23 by mouth ity of tablet 00:00: at [place] 00 bedtime. Medical Branch amitriptyli 0 Yes 25mg Take 25 mg Univers ne 25 mg 5-23 by mouth ity of tablet 00:00: at [place] 00 bedtime. Medical Branch amitriptyli Yes 25mg Take 25 mg Univers ne 25 mg 5-23 by mouth ity of tablet 00:00: at [place] 00 bedtime. Medical Branch gabapentin 2019- Yes 600mg [id number] Take [address] (NEURONTIN) 8-26 [id number] mg by L ukes 600 MG 14:11: 3D mouth 3 Medical tablet 41 (three) Center times daily. levothyroxi 2019-0 Yes 125ug Take [address] ne 8-26 mcg by [facility]ukes (SYNTHROID, 14:11: mouth Medic al LEVOTHROID) 41 Every Center 125 MCG morning on tablet an empty stomach. pravastatin 2019-0 Yes 40mg QD Take [address] (PRAVACHOL) 8-26 by mouth Luke s 40 MG 14:11: daily. Medical tablet 41 Center spironolact 0 Yes 50mg Take [address] [facility] one 8-26 by mouth [facility]ukes (ALDACTONE) 14:11: every Medic al 50 MG 41 other day. Center tablet furosemide Yes 20mg Take [address] (LASIX) 20 8-26 by mouth [facility]ukes MG tablet 14:11: every Medical 41 other day. Center traMADol 0 Yes 50mg Take [address] (ULTRAM) 50 8-26 by mouth Luke s mg tablet 14:11: every 6 Medic al 41 (six) Center hours as needed for Pain. meclizine 0 Yes 12.5mg Take 12.[address] (ANTIVERT) 8-26 mg by [facility]ukes 12.5 mg 14:11: mouth 2 Medical tablet 41 (two) Center times daily as needed. melatonin 2019-0 Yes QD Take by [facility]I [facility] t 10 mg Tab 8- mouth [facility]ukes 14:11: nightly. Medical 41 Center diphenhydrA 2019-0 Yes 25mg Take [address] MINE 8-26 by mouth [facility]ukes (BENADRYL) 14:11: every 6 Medi all 25 mg 41 (six) Center capsule hours as needed for Itching. gabapentin 2018-0 Yes 600mg [id number] Take [address] (NEURONTIN) 8-26 [id number] mg by L ukes 600 MG 14:11: 3D mouth 3 Medical tablet 41 (three) Center times daily. levothyroxi 2019-0 Yes 125ug Take [address] ne 8-26 mcg by Lukes (SYNTHROID, 14:11: mouth Medic al LEVOTHROID) 41 Every Center 125 MCG morning on tablet an empty stomach. pravastatin 2019-0 Yes 40mg QD Take [address] (PRAVACHOL) 8-26 by mouth Luke s 40 MG 14:11: daily. Medical tablet 41 Center spironolact Yes 50mg Take [address] [facility] one 8-26 by mouth [facility]ukes (ALDACTONE) 14:11: every Medic al 50 MG 41 other day. Center tablet furosemide Yes 20mg Take [address] (LASIX) 20 8-26 by mouth [facility]ukes MG tablet 14:11: every Medical 41 other day. [place] traMADol Yes 50mg Take [address] (ULTRAM) 50 8-26 by mouth Luke s mg tablet 14:11: every 6 Medic al 41 (six) Center hours as needed for Pain. meclizine 0 Yes 12.5mg Take 12.[address] (ANTIVERT) 8-26 mg by [facility]ukes 12.5 mg 14:11: mouth 2 Medical tablet 41 (two) Center times daily as needed. melatonin 2018- Yes QD Take by [facility]I [facility] t 10 mg Tab 8- mouth [facility]ukes 14:11: nightly. [address] diphenhydrA 0 Yes 25mg Take [address] MINE 8-26 by mouth [facility]ukes (BENADRYL) 14:11: every 6 Medi all 25 mg 41 (six) Center capsule hours as needed for Itching. gabapentin 2019-0 Yes 600mg Q.[id number] Take [address] (NEURONTIN) 8-26 [id number] mg by L ukes 600 MG 14:11: 3D mouth 3 Medical tablet 41 (three) Center times daily. levothyroxi 2019-0 Yes 125ug Take [address] ne 8-26 mcg by Lukes (SYNTHROID, 14:11: mouth Medic al LEVOTHROID) 41 Every Center 125 MCG morning on tablet an empty stomach. pravastatin 2019-0 Yes 40mg QD Take [address] (PRAVACHOL) 8-26 by mouth Luke s 40 MG 14:11: daily. Medical tablet 41 Center spironolact 0 Yes 50mg Take [address] one 8-26 by mouth [facility]ukes (ALDACTONE) 14:11: every Medic al 50 MG 41 other day. Center tablet furosemide 0 Yes 20mg Take [address] (LASIX) 20 8-26 by mouth [facility]ukes MG tablet 14:11: every Medical 41 other day. Center traMADol 0 Yes 50mg Take [address] (ULTRAM) 50 8-26 by mouth Luke s mg tablet 14:11: every 6 Medic al 41 (six) Center hours as needed for Pain. meclizine 0 Yes 12.5mg Take 12.[address] (ANTIVERT) 8-26 mg by [facility]ukes 12.5 mg 14:11: mouth 2 Medical tablet 41 (two) Center times daily as needed. melatonin Yes QD Take by [facility] t 10 mg Tab 8-26 mouth [facility]ukes 14:11: nightly. Medical 41 Center diphenhydrA 0 Yes 25mg Take [address] MINE 8-26 by mouth [facility]ukes (BENADRYL) 14:11: every 6 Medi all 25 mg 41 (six) Center capsule hours as needed for Itching. lactulose Yes 20g Q.5D Take 30 [facility] (CHRONULAC) 7-20 mLs (20 g [place] 20 gram/30 00:00: total) by Me dical mL solution 00 mouth 2 Cente r (two) times daily Titrate for 2-3 bowel movements daily (can decrease/i ncrease medication for effect). zinc Yes Apply as [facility] oxide-zi 7-20 needed to [place] latum 00:00: rectal Medical (CRITIC-AID 00 area to Cente r ) 20-51 % help with Pste skin topical breakdown. paste lactulose Yes 20g Q.5D Take 30 [facility] (CHRONULAC) 7-20 mLs (20 g [place] 20 gram/30 00:00: total) by Me dical mL solution 00 mouth 2 Cente r (two) times daily Titrate for 2-3 bowel movements daily (can decrease/i ncrease medication for effect). zinc Yes Apply as [facility] oxide-zi 7-20 needed to [place] latum 00:00: rectal Medical (CRITIC-AID 00 area to Cente r ) 20-51 % help with Pste skin topical breakdown. paste lactulose Yes 20g Q.5D Take 30 [facility] (CHRONULAC) 7-20 mLs (20 g [place] 20 gram/30 00:00: total) by Me dical mL solution 00 mouth 2 Cente r (two) times daily Titrate for 2-3 bowel movements daily (can decrease/i ncrease medication for effect). zinc Yes Apply as [facility] oxide-zi 7-20 needed to [place] es latum 00:00: rectal Medical (CRITIC-AID 00 area to Cente r ) 20-51 % help with Pste skin topical breakdown. paste Levothyroxi Yes 150ug Take 150 U nivers ne 1-02 mcg by ity of (TIROSINT) 14:44: mouth [place] 150 mcg Cap 02 daily. Medica l Branch pravastatin Yes 40mg Take 40 mg Univers (PRAVACHOL) 1-02 by mouth ity of 40 mg 14:44: at [place] tablet 02 bedtime. Medical Branch metoprolol Yes 100mg Take 100 Un roni succinate 1-02 mg by ity of XL (TOPROL 14:44: mouth [place] XL) 100 mg 02 daily. Medical 24 hr Branch tablet HYDROcodone Yes 1{tbl} Take 1 Tab Univers -acetaminop 1-02 by mouth 2 it y of hen (NORCO) 14:44: (two) [place] 10-325 mg 02 times Medical tablet daily. Branch cyclobenzap Yes 10mg Take 10 mg Univers rine 1-02 by mouth 2 ity of (FLEXERIL) 14:44: (two) [place] 10 mg 02 times Medical tablet daily. Branch diazepam Yes 10mg Take 10 mg Uni vers (VALIUM) 10 1-02 by mouth ity of mg tablet 14:44: at [place] 02 bedtime. Medical Branch diphenhydrA Yes 50mg Take 50 mg Univers MINE 1-02 by mouth ity of (BENADRYL) 14:44: at [place] 25 mg 02 bedtime. Medical capsule Branch aspirin 81 2017 Yes 81mg Take 81 mg U nivers mg EC 1-02 by mouth ity of tablet 14:44: daily. [place] 02 Medical Branch lansoprazol Yes 15mg Take 15 mg Univers e 05-30 by mouth ity of (PREVACID) 14:44: daily. [place] 15 mg 02 Medical capsule Branch SUFentanil Yes 25ug 25 mcg by Un roni in Total 05-30 Intratheca ity o f Volume 14:44: l route [place] 02 every 1 Medical (one) Branch hour. Indication s: Pain pump Levothyroxi Yes 150ug Take 150 U nivers ne 1-02 mcg by ity of (TIROSINT) 14:44: mouth [place] 150 mcg Cap 02 daily. Medica l Branch pravastatin Yes 40mg Take 40 mg Univers (PRAVACHOL) 02 by mouth ity of 40 mg 14:44: at [place] tablet 02 bedtime. Medical Branch metoprolol Yes 100mg Take 100 Un roni succinate -02 mg by ity of XL (TOPROL 14:44: mouth [place] XL) 100 mg 02 daily. Medical 24 hr Branch tablet HYDROcodone Yes 1{tbl} Take 1 Tab Univers -acetaminop 05-30 by mouth 2 it y of hen (NORCO) 14:44: (two) [place] 10-325 mg 02 times Medical tablet daily. Branch cyclobenzap Yes 10mg Take 10 mg Univers rine 02 by mouth 2 ity of (FLEXERIL) 14:44: (two) [place] 10 mg 02 times Medical tablet daily. Branch diazepam Yes 10mg Take 10 mg Uni vers (VALIUM) 10 05-30 by mouth ity of mg tablet 14:44: at [place] 02 bedtime. Medical Branch diphenhydrA Yes 50mg Take 50 mg Univers MINE 05-30 by mouth ity of (BENADRYL) 14:44: at [place] 25 mg 02 bedtime. Medical capsule Branch aspirin 81 2017 Yes 81mg Take 81 mg U nivers mg EC 05-30 by mouth ity of tablet 14:44: daily. [place] 02 Medical Branch lansoprazol Yes 15mg Take 15 mg Univers e 05-30 by mouth ity of (PREVACID) 14:44: daily. [place] 15 mg 02 Medical capsule Branch SUFentanil Yes 25ug 25 mcg by Un roni in Total 05-30 Intratheca ity o f Volume 14:44: l route [place] 02 every 1 Medical (one) Branch hour. Indication s: Pain pump ACETAMINOPH Yes 1{tbl} Take 1 Tab Univers EN/DIPHENHY 1-02 by mouth ity of DRAMINE 14:44: at bedtime [place] (TYLENOL PM 01 as needed. Me dical ORAL) Branch pregabalin Yes 75mg Take 75 mg U nivers (LYRICA) 75 1-02 by mouth 3 it y of mg capsule 14:44: (three) [place] 01 times Medical daily. Branch losartan Yes 100mg Take 100 Univ ers (COZAAR) 1-02 mg by ity of 100 mg 14:44: mouth [place] tablet 01 daily. Medical Branch gabapentin Yes 600mg Take 600 Un roni (NEURONTIN) 1-02 mg by ity of 600 mg 14:44: mouth 3 [place] tablet 01 (three) Medical times [place] daily. ACETAMINOPH Yes 1{tbl} Take 1 Tab Univers EN/DIPHENHY 1-02 by mouth ity of DRAMINE 14:44: at bedtime [place] (TYLENOL PM 01 as needed. Me dical ORAL) Branch pregabalin Yes 75mg Take 75 mg U nivers (LYRICA) 75 1-02 by mouth 3 it y of mg capsule 14:44: (three) [place] 01 times Medical daily. Branch losartan Yes 100mg Take 100 Univ ers (COZAAR) 1-02 mg by ity of 100 mg 14:44: mouth [place] tablet 01 daily. Medical Branch gabapentin Yes 600mg Take 600 Un roni (NEURONTIN) 1-02 mg by ity of 600 mg 14:44: mouth 3 [place] tablet 01 (three) Medical times [place] daily. Vital Signs Vital Name Observation Time Observation Value Comments Source Systolic blood 2019-11-04 13:35:00 134 mm[Hg] [facility] Diastolic blood 2019-11-04 13:35:00 59 mm[Hg[facility] Heart rate 2019-11-04 13:35:00 84 /min Universi ty [facility] Respiratory rate 2019-11-04 13:35:00 20 /min [facility] Clinic Oxygen saturation in 2019-11-04 13:35:00 96 /min [facility] Arterial blood by [facility] Pulse oximetry [place] Body temperature 2019-11-04 13:05:00 36.5 Julissa [facility] Body height 2019-10-25 14:46:00 167.6 cm [facility] Body weight 2019-10-25 14:46:00 87.1 kg [facility] BMI 2019-10-25 14:46:00 31.01 kg/m2 [facility] Respiratory rate 2019-11-04 13:01:00 21 /min [facility] Procedure Date / Time Performed Performing Clinician Sourc e INTUBATION 2019-11-04 12:45:34 Mendez Tate [facility] DAY SURGERY - ADC 2019-11-04 05:01:00 Doctor Unassigned, [facility] 2019-10-28 05:01:00 Doctor Un[facility]igned, [facility] En[facility]ters Start End Encounter Admission Attending Care Care Encounter Source Date/Time Date/Time Type Type Clinicians Facility Department ID 2021-03-25 Outpatient [facility] [id number] Univers 23:02:16 [facility] 2022-04-18 2022-04-18 Outpatient Zoila Pina [facility] RADI LA00 [id number] [facility] 09:37:00 09:37:00 08 [facility] 2022-03-23 2022-03-23 Outpatient Zoila Pina [facility] RADI LA00 [id number] [facility] 08:31:00 08:31:00 38 [facility] 2019-11-04 2019-11-04 [facility] 1.2.840.114 [id number] [facility] 06:03:00 08:38:00 Encounter Yeison Ziyad Mrakus 350.1.13.10 ityamileth [place] [id number] Med [place] [id number] [place] 2019-11-04 2019-11-[address] [facility] 1.2.840.11 4 [id number] Univers 07:23:00 08:05:00 Samy Malik 35 0.1.13.10 [place] [id number] [facility] 020 Branch 2019-11-04 2019-11-04 Orders Doctor JUAN A 1.2.840.114 [id number] Univers 00:00:00 00:00:00 Only Unassigned, YEIMY 350.1.13.[address] [place] [facility] 4.2.7.2.686 Chi as [id number] [address] 2019-11-01 2019-11-01 Outpatient R [facility] [id number] Univers 09:15:00 09:15:00 [facility] 2019-11-01 2019-11-01 Laboratory Only, Adc Test [facility] 1.2.840. 114 [id number] Univers 08:58:47 09:13:47 Only Yeison [place] 350.1.13.1 0 [place] [id number] [place] dical [facility] [address] [facility] 2019-10-28 2019-10-28 Outpatient [facility] [id number] Univers 09:30:00 09:30:00 [facility] 2019-10-28 2019-10-28 Orders Doctor JUAN A 1.2.840.114 [id number] Univers 00:00:00 00:00:00 Only Unassigned, YEIMY 350.1.13.[address] [place] [facility] 4.2.7.2.686 Chi as [phone] [address] Results Test Description Test Time Test Comments Results Result [facility] e Comments - CT CHEST 2022-04-18 W/CONTRAST 13:07:00 [facility] 1960 Sex: F [facility]: [facility] [place] [facility] 1960 Age/S: 62 / F [id number] Unit #: [id number] Loc: [place] [address] Phys: Zoila Pete DO Acct: [id number] Dis Date: Status: REG CLI PHONE #: [phone] Exam Date: 04/18/2022 1103 FAX #: Reason: CHRONIC LYMPHADENITIS EXPECT MESENTERIC EXAMS: CPT: [id number] CT CHEST W/CONTRAST 09030 Location Code: S17 EXAMINATION: - CT CHEST W/CONTRAST CLINICAL INDICATION: Female, 62 years old with CHRONIC LYMPHADENITIS TECHNIQUE: Axial post-contrast contiguous images were obtained through the chest followed by coronal and sagittal multiplanar reformations. One or more of the following dose reduction techniques were used: Automated exposure control, adjustment of the mA and/or kV according to patient size, and/or iterative reconstruction. COMPARISON: None FINDINGS: Chest: Medical Devices: None. Lymph Nodes: A prevascular space lymph node measures 1.9 x 0.9 cm. Multiple enlarged retrocaval/pretrachea l space lymph nodes are present, with the largest measuring 2.0 x 2.3 cm. Enlarged subcarinal lymph node measuring up to 1.8 x 2.0 cm. Left axillary lymph nodes contain a fatty hilum and measure up to 11 mm in short axis on the left and 11 mm in short axis on the right. Lungs/Airways/Pleura: Trachea and main bronchi are patent. There are scattered patchy predominantly groundglass opacities in the periphery of the lungs. They are most pronounced in the anterior aspects of the upper lobes and right middle lobe. No pneumothorax is identified. No pulmonary nodules or masses are identified. No pleural effusion is present. Heart/Vessels: Heart is normal in size. Coronary calcifications. No pericardial effusion is present. Aorta is normal in caliber and contour. Minimal calcific plaque within the thoracic aorta. Cephalization of the pulmonary vasculature. Soft Tissues: Visualized thyroid gland is normal. The nondistended esophagus appears grossly unremarkable. No soft tissue abnormality of the chest is demonstrated. PAGE 1 Signed Report (CONTINUED) Name: LATRICE PEREIRA [facility] : 1960 Age/S: 62 / F [id number] [address] Unit #: [id number] Loc: [place] [address] Phys: Zoila Pete Acct: [id number] Dis Date: Status: REG CLI PHONE #: [phone] Exam Date: 04/18/2022 1103 FAX #: Reason: CHRONIC LYMPHADENITIS EXPECT MESENTERIC EXAMS: CPT: [id number] CT CHEST W/CONTRAST 52918 (Continued) Upper Abdomen: Abdomen: The gallbladder is surgically absent. Bones: No evidence of acute osseous abnormality. IMPRESSION: Mediastinal lymphadenopathy with the largest in the prevascular space measuring up to 1.9 x 0.9 cm, retrocaval/pretrachea l space measuring up to 2.0 x 2.3 cm and a subcarinal node measuring up to 1.8 x 2.0 cm. Scattered patchy and predominantly groundglass opacities in the periphery of the lungs can be seen with pneumonia, edema, with other etiologies not excluded. at 1307 Reported and signed by: Nash Alegria M.D. CC: Zoila Pete DO; Tavares Whyte MD Technologist:Sharon Rm, RT,(R),(CT) CTDI: DLP: Trnscb Date/Time: 04/18/2022 (1307) [email or web address] Orig Print D/T: S: 04/18/2022 (4041) PAGE 2 Signed Report - US HEAD AND NECK 2022-04-18 12:33:00 [facility] : 1960 Sex: F Name: LATRICE PEREIRA : 1960 Age/S: 62 / F [address] Unit #: [id number] Loc: [place] [address] Phys: Zoila Pete DO Acct: [id number] Dis Date: Status: REG CLI PHONE #: [phone] Exam Date: 04/18/2022 1045 FAX #: Reason: CHRONIC LYMPHADENITIS EXCEPT MESENTERIC EXAMS: CPT: [id number] US HEAD AND NECK 84691 Location Code: S17 EXAMINATION: - US HEAD AND NECK CLINICAL INDICATION: Female, 62 years old with CHRONIC LYMPHADENITIS . COMPARISON: CT neck March 23, 2022. TECHNIQUE: Grayscale and color Doppler evaluation of the thyroid gland is performed. FINDINGS: The echogenicity of the thyroid is heterogeneous. Thyroid vascularity is within normal limits Right Lobe: The right lobe measures 2.5 x 0.5 x 1.0cm. -No definite thyroid masses are seen. Left Lobe: The left lobe measures 2.1 x 0.4 x 0.9cm. -No definite thyroid masses are seen. Isthmus: The isthmus measures 0.1cm. -No definite isthmus masses are seen. Extrathyroidal Soft Tissue: On the right side of the neck, there are predominantly hypoechoic lymph nodes, the largest measuring up to 1.7 x 0.4 x 1.5 cm. On the left side of the neck there are predominantly hypoechoic lymph nodes, with the largest measuring up to 1.1 x 0.5 x 0.7 cm. IMPRESSION: No evidence of thyroid nodules. Bilateral neck lymph nodes with the largest on the right measuring up to 1.7 x 0.5 x 1.5 cm and on the left measuring up to 1.1 x 0.5 x 0.7 cm. PAGE 1 Signed Report (CONTINUED) Name: LATRICE PEREIRA : 1960 Age/S: 62 / F [address] [address] Unit #: [id number] Loc: [place] [address] Phys: Zoila Pete DO Acct: [id number] Dis Date: Status: REG CLI PHONE #: [phone] Exam Date: 04/18/2022 1045 FAX #: Reason: CHRONIC LYMPHADENITIS EXCEPT MESENTERIC EXAMS: CPT: [id number] US HEAD AND NECK 65100 (Continued) at 1233 Reported and signed by: Nash Alegria M.D. CC: Zoila Pete DO; Tavares Whyte MD Technologist: Kassi Nelson RDMS Trnscb Date/Time: 04/18/2022 (1233) [email or web address] PAGE 2 Signed Report Name: LATRICE PEREIRA [facility] : 1960 Age/S: 62 / F [address] [address] Unit #: [id number] Loc: [place] [address] Phys: Zoila Pete DO Acct: [id number] Dis Date: Status: REG CLI PHONE #: [phone] Exam Date: 04/18/2022 1045 FAX #: Reason: CHRONIC LYMPHADENITIS EXCEPT MESENTERIC EXAMS: CPT: [id number] US HEAD AND NECK 55120 (Continued) Orig Print D/T: S: 04/18/2022 (4865) Probe: PAGE 3 Signed Report - CT NECK 2022-03-23 W/CONTRAST 11:11:00 [facility] : 1960 Sex: F Name: LATRICE PEREIRA [facility] : 1960 Age/S: 62 / F [address] Unit #: [id number] Loc: [place] [address] Phys: Zoila Pete DO Acct: [id number] Dis Date: Status: REG CLI PHONE #: [phone] Exam Date: 03/23/2022 1010 FAX #: Reason: PARALYSIS OF VOCAL CORDS AND LARYNX EXAMS: CPT: [id number] CT NECK W/CONTRAST 48283 LOCATION: B2 EXAM: CT NECK WITH CONTRAST HISTORY: PARALYSIS OF VOCAL CORDS AND LARYNX TECHNIQUE: Axial CT images were obtained of the neck with intravenous contrast. Coronal and sagittal reformatted images were created from the data set. One or more of the following dose reduction techniques were used: Automated exposure control, adjustment of the mA and/or kV according to patient size, and/or iterative reconstruction. COMPARISON: None FINDINGS: The aerodigestive structures are within normal limits. Specifically, the nasal cavity, nasopharynx, oral cavity, oropharynx, hypopharynx, larynx, and visualized trachea and esophagus demonstrate no masses or abnormal enhancement. A lower paratracheal lymph node conglomerations measure up to 3.6 cm. The parotid and submandibular glands appear within normal limits. The thyroid gland is not visualized. Evaluation of the visualized portions of the brain parenchyma and orbits demonstrates no abnormality. The visualized paranasal sinuses are predominantly clear. The tympanomastoid cavities are unopacified. There is normal intravascular enhancement. Confluent bilateral airspace opacities in the lung apices. The visualized osseous structures are within normal limits. Following administration of intravenous contrast material, there is no abnormal enhancement. IMPRESSION: 1. Large lower paratracheal lymph nodes measuring up to 3.6 cm are along the expected course of the recurrent laryngeal nerve. No other neck masses. 2. Bilateral pulmonary edema and/or pneumonia in the visualized lung PAGE 1 Signed Report (CONTINUED) Name: LATRICE PEREIRA : 1960 Age/S: 62 / F [address] [address] Unit #: [id number] Loc: [place] [address] Phys: Zoila Pete DO Acct: [id number] Dis Date: Status: REG CLI PHONE #: [phone] Exam Date: 03/23/2022 1010 FAX #: Reason: PARALYSIS OF VOCAL CORDS AND LARYNX EXAMS: CPT: [id number] CT NECK W/CONTRAST 35126 (Continued) apices. at 1111 Reported and signed by: Dru Kaur M.D. CC: Zoila Pete DO; Tavares Whyte MD Technologist:Sharon Rm, RT,(R),(CT) CTDI: DLP: Trnscb Date/Time: 03/23/2022 (1111) [email or web address] Orig Print D/T: S: 03/23/2022 (1114) PAGE 2 Signed Report BLOOD UREA NITROGEN 2022-03-23 09:40:00 Test Item Value Reference Range Interpretation Comme nts BLOOD UREA NITROGEN (test code = BUN) 11 MG/DL 7-18 N CREATININE W ESTIMATED [id number] 09:40:00 Test Item Value Reference Range Interpretation Comments GLOMERULAR FILTRATION >=60 max estimate >60 RATE (test code = GFR) estGFR CREATININE (test code = 0.9 MG/DL 0.6-1.0 N CREAT) [id number] 12:45:34Mendez Tate CRNA ? ? 11/04/2019 ?7:47 AMIntubationDate/Time: 11/04/2019 7:23 AMUrgency: elective Airway not difficult General Information and Staff Patient location during procedure: ORResident/CHILD AND ADOLESCENT PSYCHIATRIST: Mendez Tate CRNAPerformed: resident/CHILD AND ADOLESCENT PSYCHIATRIST Indications and Patient ConditionIndications for airway management: anesthesiaSpontaneous ventilation: presentSedation level: deepPreoxygenated: yesPatient position: sniffingMILS maintained throughoutMask difficulty assessment: 0 - not attemptedNo planned trial extubation Final Airway DetailsFinal airway type: endotracheal airway Successful airway: ETTCuffed: yes Successful intubation technique: direct laryngoscopyEndotracheal tube insertion site: oralBlade: MacintoshBlade size: #3ETT size (mm): 7.0Cormack-Lehane Classification: grade I - full view of glottisPlacement verified by: chest auscultation and capnometry Measured from: lipsNumber of attempts at approach: 1[facility]2020-02-20 11:24:00 Test Item Value Reference Range Interpretation Comments AMMONIA (BEAKER) (test code = 348) 121 mol/L 18-72 H Sample not centrifuged within 15 minutes of collection. Result may be spuriously elevated.[id number] 10:38:00 Test Item Value Reference Range Interpretation Comments AMMONIA (BEAKER) (test code = 348) 54 mol/L 18-72 Sample not centrifuged within 15 minutes of collection.Result may be spuriously elevated.TISSUE [id number] 17:34:00Surgical Pathology Report Case: [id number] Authorizing Provider: Donavon Mistry MD Collected: 01/21/2019 1144 Ordering Location: 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 Small bowel NOSB. Gastric [...] evaluated Immunohistochemistry technical testing was performed at [facility], Pathology Laboratory where it was developed and its performance characteristics were determined. It has not been cleared or approved by the U.S. Food and Drug Administration. The FDA has determined that such clearance or approval is not necessary. The test is usedfor clinical purposes. It should not be regarded as investigational or for research. This laboratoryis certified under the Clinical Laboratory Improvement Amendments of 1988 (CLIA-88) as qualified to perform high complexity clinical laboratory testing.POCT-GLUCOSE [id number] 11:56:00 Test Item Value Reference Range Interpretation Comments POC-GLUCOSE METER 207 mg/dL 70-110 H TESTED AT [facility] 6720 [facility] (test code = [facility] 1538) [address] POCT-GLUCOSE [id number] 08:03:00 Test Item Value Reference Range Interpretation Comments POC-GLUCOSE METER 117 mg/dL 70-110 H TESTED AT [place] [address] ([facility]) (test code = [facility] 1538) [address] [id number] 06:09:00 Test Item Value Reference Range Interpretation Comments MAGNESIUM (BEAKER) (test code = 1.9 mg/dL 1.6-2.6 627) BASIC METABOLIC [id number] 06:09:00 Test Item Value Reference Range Interpretation Comments SODIUM (BEAKER) 136 meq/L 136-145 (test code = 381) POTASSIUM (BEAKER) 3.8 meq/L 3.5-5.1 (test code = 379) CHLORIDE (BEAKER) 100 meq/L 98-107 (test code = 382) CO2 (BEAKER) (test 29 meq/L 22-29 code = 355) BLOOD UREA NITROGEN 10 mg/dL 7-21 (BEAKER) (test code = 354) CREATININE (BEAKER) 0.71 mg/dL 0.57-1.25 (test code = 358) GLUCOSE RANDOM 100 mg/dL 70-105 (BEAKER) (test code = 652) CALCIUM (BEAKER) 8.6 mg/dL 8.4-10.2 (test code = 697) EGFR (BEAKER) (test 84 mL/min/1.73 ESTIMA NATHALIE GFR IS code = 1092) sq m NOT ACCURATE CREATININE CLEARANCE IN PREDICTING GLOMERULAR FILTRATION RATE . ESTIMATED GFR I S NOT APPLICABLE FOR DIALYSIS PATIEN TS. HEPATIC FUNCTION [id number] 06:09:00 Test Item Value Reference Range Interpretation Comments TOTAL PROTEIN (BEAKER) (test code = 5.8 gm/dL 6.0-8.3 L 770) ALBUMIN (BEAKER) (test code = 1145) 3.3 g/dL 3.5-5.0 L BILIRUBIN TOTAL (BEAKER) (test code 1.5 mg/dL 0.2-1.2 H = 377) BILIRUBIN DIRECT (BEAKER) (test 0.9 mg/dL 0.1-0.5 H code = 706) ALKALINE PHOSPHATASE (BEAKER) (test 70 U/L 40-150 code = 346) AST (SGOT) (BEAKER) (test code = 38 U/L 5-34 H 353) ALT (SGPT) (BEAKER) (test code = 44 U/L 6-55 347) [id number] 05:47:00 Test Item Value Reference Range Interpretation Comments PROTIME (BEAKER) (test code = 17.3 seconds 11.9-14.2 H 759) INR (BEAKER) (test code = 370) 1.5 <=5.9 PARTIAL THROMBOPLASTIN TIME 36.2 seconds 22.5-36.0 H (BEAKER) (test code = 760) Effective 10/24/2018: PT Reference Range ChangeNew: 11.9-14.2 Previous: 11.7- 14.7RECOMMENDED COUMADIN/WARFARIN INR THERAPY RANGESSTANDARD DOSE: 2.0-3.0 Includes: PROPHYLAXIS for venous thrombosis, systemic embolization; TREATMENT for venous thrombosis and/or pulmonary embolus.HIGH RISK: Target INR is 2.5-3.5 for patients wiht mechanical heart valves.CBC W/PLT COUNT & AUTO [id number] 05:46:00 Test Item Value Reference Range Interpretation Comments WHITE BLOOD CELL COUNT (BEAKER) 8.4 K/ L 3.5-10.5 (test code = 775) RED BLOOD CELL COUNT (BEAKER) 2.61 M/ L 3.93-5.22 L (test code = 761) HEMOGLOBIN (BEAKER) (test code = 8.3 GM/DL 11.2-15.7 L 410) HEMATOCRIT (BEAKER) (test code = 25.5 % 34.1-44.9 L 411) MEAN CORPUSCULAR VOLUME (BEAKER) 97.7 fL 79.4-94.8 H (test code = 753) MEAN CORPUSCULAR HEMOGLOBIN 31.8 pg 25.6-32.2 (BEAKER) (test code = 751) MEAN CORPUSCULAR HEMOGLOBIN CONC 32.5 GM/DL 32.2-35.5 (BEAKER) (test code = 752) RED CELL DISTRIBUTION WIDTH 20.8 % 11.7-14.4 H (BEAKER) (test code = 412) PLATELET COUNT (BEAKER) (test code 89 K/CU MM 150-450 L = 756) MEAN PLATELET VOLUME (BEAKER) 11.3 fL 9.4-12.3 (test code = 754) NUCLEATED RED BLOOD CELLS (BEAKER) 0 /100 WBC 0-0 (test code = 413) NEUTROPHILS RELATIVE PERCENT 55 % (BEAKER) (test code = 429) LYMPHOCYTES RELATIVE PERCENT 27 % (BEAKER) (test code = 430) MONOCYTES RELATIVE PERCENT 16 % (BEAKER) (test code = 431) EOSINOPHILS RELATIVE PERCENT 2 % (BEAKER) (test code = 432) BASOPHILS RELATIVE PERCENT 1 % (BEAKER) (test code = 437) NEUTROPHILS ABSOLUTE COUNT 4.57 K/ L 1.56-6.13 (BEAKER) (test code = 670) LYMPHOCYTES ABSOLUTE COUNT 2.23 K/ L 1.18-3.74 (BEAKER) (test code = 414) MONOCYTES ABSOLUTE COUNT (BEAKER) 1.30 K/ L 0.24-0.36 H (test code = 415) EOSINOPHILS ABSOLUTE COUNT 0.18 K/ L 0.04-0.36 (BEAKER) (test code = 416) BASOPHILS ABSOLUTE COUNT (BEAKER) 0.04 K/ L 0.01-0.08 (test code = 417) IMMATURE GRANULOCYTES-RELATIVE 1 % 0-1 PERCENT (BEAKER) (test code = 2801) POCT-GLUCOSE [id number] 23:48:00 Test Item Value Reference Range Interpretation Comments POC-GLUCOSE METER 182 mg/dL 70-110 H TESTED AT [facility] 6720 (BEAKER) (test code = [place]ANE [place] 1538) [address] POCT-GLUCOSE [id number] 18:04:00 Test Item Value Reference Range Interpretation Comments POC-GLUCOSE METER 95 mg/dL 70-110 TESTED AT [place] [address] ([facility]) (test code = ANALI Lorenzo [facility] [address] 1538) HEMOGLOBIN AND [id number] 17:04:00 Test Item Value Reference Range Interpretation Comments HEMOGLOBIN (BEAKER) (test code = 8.8 GM/DL 11.2-15.7 L 410) HEMATOCRIT (BEAKER) (test code = 27.4 % 34.1-44.9 L 411) BLOOD GAS, [id number] 15:45:00 Test Item Value Reference Range Interpretation Comments PH ARTERIAL (BEAKER) (test code = 7.55 7.35-7.45 H 383) PCO2 ARTERIAL (BEAKER) (test code 31 mmHg 35-45 L = 384) PO2 ARTERIAL (BEAKER) (test code = 62 mmHg 80-90 L 385) O2 SATURATION ARTERIAL (BEAKER) 94.5 % 96.0-97.0 L (test code = 386) HCO3 ARTERIAL (BEAKER) (test code 27 mmol/L 21-29 = 388) BASE EXCESS ARTERIAL (BEAKER) 4.5 mmol/L -2.0-3.0 H (test code = 387) PATIENT TEMPERATURE (BEAKER) (test 37.0 C code = 1818) Please draw blood w/ patient on room air and sitting for at least 15 minutes prior to lab drawPOCT-GLUCOSE [id number] 11:29:00 Test Item Value Reference Range Interpretation Comments POC-GLUCOSE METER 205 mg/dL 70-110 H TESTED AT [place] [address] ([facility]) (test code = ANALI Lorenzo [facility] 1538) [address] RAD, CHEST, 1 VIEW, NON [id number] 08:46:00Reason for exam:->shortness of breathShould this be [...] MDReport Verified Date/Time: 12/14/2018 08:46:53 Reading Location: [facility] Reading Room POCT- GLUCOSE [id number] 08:21:00 Test Item Value Reference Range Interpretation Comments POC-GLUCOSE METER 107 mg/dL 70-110 TESTED AT [facility] 6720 (BEAKER) (test code = [place] 1538) [address] HEMOGLOBIN [id number] 08:02:00 Test Item Value Reference Range Interpretation Comments HEMOGLOBIN A1C (BEAKER) (test code = 5.1 % 4.3-6.1 368) [id number] 07:51:00 Test Item Value Reference Range Interpretation Comments MAGNESIUM (BEAKER) (test code = 1.8 mg/dL 1.6-2.6 627) BASIC METABOLIC [id number] 07:51:00 Test Item Value Reference Range Interpretation Comments SODIUM (BEAKER) 137 meq/L 136-145 (test code = 381) POTASSIUM (BEAKER) 3.3 meq/L 3.5-5.1 L (test code = 379) CHLORIDE (BEAKER) 100 meq/L 98-107 (test code = 382) CO2 (BEAKER) (test 28 meq/L 22-29 code = 355) BLOOD UREA NITROGEN 11 mg/dL 7-21 (BEAKER) (test code = 354) CREATININE (BEAKER) 0.65 mg/dL 0.57-1.25 (test code = 358) GLUCOSE RANDOM 91 mg/dL 70-105 (BEAKER) (test code = 652) CALCIUM (BEAKER) 8.3 mg/dL 8.4-10.2 L (test code = 697) EGFR (BEAKER) (test 93 mL/min/1.73 ESTIMA NATHALIE GFR IS code = 1092) sq m NOT ACCURATE CREATININE CLEARANCE IN PREDICTING GLOMERULAR FILTRATION RATE . ESTIMATED GFR I S NOT APPLICABLE FOR DIALYSIS PATIEN TS. Specimen slightly ictericHEPATIC FUNCTION [id number] 07:51:00 Test Item Value Reference Range Interpretation Comments TOTAL PROTEIN (BEAKER) (test code = 5.4 gm/dL 6.0-8.3 L 770) ALBUMIN (BEAKER) (test code = 1145) 3.2 g/dL 3.5-5.0 L BILIRUBIN TOTAL (BEAKER) (test code 1.9 mg/dL 0.2-1.2 H = 377) BILIRUBIN DIRECT (BEAKER) (test 0.9 mg/dL 0.1-0.5 H code = 706) ALKALINE PHOSPHATASE (BEAKER) (test 63 U/L 40-150 code = 346) AST (SGOT) (BEAKER) (test code = 40 U/L 5-34 H 353) ALT (SGPT) (BEAKER) (test code = 48 U/L 6-55 347) Specimen slightly ictericCBC W/PLT COUNT & AUTO [id number] 05:44:00 Test Item Value Reference Range Interpretation Comments WHITE BLOOD CELL COUNT (BEAKER) 8.1 K/ L 3.5-10.5 (test code = 775) RED BLOOD CELL COUNT (BEAKER) 2.55 M/ L 3.93-5.22 L (test code = 761) HEMOGLOBIN (BEAKER) (test code = 7.9 GM/DL 11.2-15.7 L 410) HEMATOCRIT (BEAKER) (test code = 25.1 % 34.1-44.9 L 411) MEAN CORPUSCULAR VOLUME (BEAKER) 98.4 fL 79.4-94.8 H (test code = 753) MEAN CORPUSCULAR HEMOGLOBIN 31.0 pg 25.6-32.2 (BEAKER) (test code = 751) MEAN CORPUSCULAR HEMOGLOBIN CONC 31.5 GM/DL 32.2-35.5 L (BEAKER) (test code = 752) RED CELL DISTRIBUTION WIDTH 21.1 % 11.7-14.4 H (BEAKER) (test code = 412) PLATELET COUNT (BEAKER) (test code 81 K/CU MM 150-450 L = 756) MEAN PLATELET VOLUME (BEAKER) 12.1 fL 9.4-12.3 (test code = 754) NUCLEATED RED BLOOD CELLS (BEAKER) 0 /100 WBC 0-0 (test code = 413) NEUTROPHILS RELATIVE PERCENT 55 % (BEAKER) (test code = 429) LYMPHOCYTES RELATIVE PERCENT 28 % (BEAKER) (test code = 430) MONOCYTES RELATIVE PERCENT 13 % (BEAKER) (test code = 431) EOSINOPHILS RELATIVE PERCENT 3 % (BEAKER) (test code = 432) BASOPHILS RELATIVE PERCENT 1 % (BEAKER) (test code = 437) NEUTROPHILS ABSOLUTE COUNT 4.46 K/ L 1.56-6.13 (BEAKER) (test code = 670) LYMPHOCYTES ABSOLUTE COUNT 2.25 K/ L 1.18-3.74 (BEAKER) (test code = 414) MONOCYTES ABSOLUTE COUNT (BEAKER) 1.09 K/ L 0.24-0.36 H (test code = 415) EOSINOPHILS ABSOLUTE COUNT 0.22 K/ L 0.04-0.36 (BEAKER) (test code = 416) BASOPHILS ABSOLUTE COUNT (BEAKER) 0.06 K/ L 0.01-0.08 (test code = 417) IMMATURE GRANULOCYTES-RELATIVE 1 % 0-1 PERCENT (BEAKER) (test code = 2801) [id number] 05:41:00 Test Item Value Reference Range Interpretation Comments PROTIME (BEAKER) (test code = 18.5 seconds 11.9-14.2 H 759) INR (BEAKER) (test code = 370) 1.6 <=5.9 PARTIAL THROMBOPLASTIN TIME 38.0 seconds 22.5-36.0 H (BEAKER) (test code = 760) Effective 10/24/2018: PT Reference Range ChangeNew: 11.9-14.2 Previous: 11.7- 14.7RECOMMENDED COUMADIN/WARFARIN INR THERAPY RANGESSTANDARD DOSE: 2.0-3.0 Includes: PROPHYLAXIS for venous thrombosis, systemic embolization; TREATMENT for venous thrombosis and/or pulmonary embolus.HIGH RISK: Target INR is 2.5-3.5 for patients wiht mechanical heart valves.POCT-GLUCOSE [id number] 00:43:00 Test Item Value Reference Range Interpretation Comments POC-GLUCOSE METER 131 mg/dL 70-110 H TESTED AT [facility] 67[address] ([facility]) (test code = ANALI Lroenzo [place] 1538) [address] POCT-GLUCOSE [id number] 17:27:00 Test Item Value Reference Range Interpretation Comments POC-GLUCOSE METER 133 mg/dL 70-110 H TESTED AT [facility] 67[address] ([facility]) (test code = ANALI Lorenzo [place] 1538) [address] POCT-GLUCOSE [id number] 14:27:00 Test Item Value Reference Range Interpretation Comments POC-GLUCOSE METER 136 mg/dL 70-110 H TESTED AT [facility] 6720 (BEAKER) (test code = ANALI Lorenzo [place] 1538) [address] POCT-GLUCOSE [id number] 12:53:00 Test Item Value Reference Range Interpretation Comments POC-GLUCOSE METER 207 mg/dL 70-110 H TESTED AT [facility] 6720 (BEAKER) (test code = ANALI Lorenzo [place] 1538) [address] [id number] 07:55:00 Test Item Value Reference Range Interpretation Comments PHOSPHORUS (BEAKER) (test code = 2.9 mg/dL 2.3-4.7 604) [id number] 07:55:00 Test Item Value Reference Range Interpretation Comments MAGNESIUM (BEAKER) (test code = 1.9 mg/dL 1.6-2.6 627) BASIC METABOLIC [id number] 07:55:00 Test Item Value Reference Range Interpretation Comments SODIUM (BEAKER) 138 meq/L 136-145 (test code = 381) POTASSIUM (BEAKER) 3.5 meq/L 3.5-5.1 (test code = 379) CHLORIDE (BEAKER) 103 meq/L 98-107 (test code = 382) CO2 (BEAKER) (test 27 meq/L 22-29 code = 355) BLOOD UREA NITROGEN 14 mg/dL 7-21 (BEAKER) (test code = 354) CREATININE (BEAKER) 0.72 mg/dL 0.57-1.25 (test code = 358) GLUCOSE RANDOM 112 mg/dL 70-105 H (BEAKER) (test code = 652) CALCIUM (BEAKER) 8.8 mg/dL 8.4-10.2 (test code = 697) EGFR (BEAKER) (test 83 mL/min/1.73 ESTIMA NATHALIE GFR IS code = 1092) sq m NOT ACCURATE CREATININE CLEARANCE IN PREDICTING GLOMERULAR FILTRATION RATE . ESTIMATED GFR I S NOT APPLICABLE FOR DIALYSIS PATIEN TS. Specimen slightly ictericHEPATIC FUNCTION [id number] 07:55:00 Test Item Value Reference Range Interpretation Comments TOTAL PROTEIN (BEAKER) (test code = 6.0 gm/dL 6.0-8.3 770) ALBUMIN (BEAKER) (test code = 1145) 3.6 g/dL 3.5-5.0 BILIRUBIN TOTAL (BEAKER) (test code 2.1 mg/dL 0.2-1.2 H = 377) BILIRUBIN DIRECT (BEAKER) (test 1.0 mg/dL 0.1-0.5 H code = 706) ALKALINE PHOSPHATASE (BEAKER) (test 67 U/L 40-150 code = 346) AST (SGOT) (BEAKER) (test code = 44 U/L 5-34 H 353) ALT (SGPT) (BEAKER) (test code = 64 U/L 6-55 H 347) Specimen slightly ictericPOCT-GLUCOSE [id number] 07:52:00 Test Item Value Reference Range Interpretation Comments POC-GLUCOSE METER 117 mg/dL 70-110 H TESTED AT [facility] 6720 (BEAKER) (test code = ANALI Lorenzo [place] 1538) [address] CBC W/PLT COUNT & AUTO [id number] 06:01:00 Test Item Value Reference Range Interpretation Comments WHITE BLOOD CELL COUNT (BEAKER) 10.1 K/ L 3.5-10.5 (test code = 775) RED BLOOD CELL COUNT (BEAKER) 2.79 M/ L 3.93-5.22 L (test code = 761) HEMOGLOBIN (BEAKER) (test code = 8.6 GM/DL 11.2-15.7 L 410) HEMATOCRIT (BEAKER) (test code = 28.0 % 34.1-44.9 L 411) MEAN CORPUSCULAR VOLUME (BEAKER) 100.4 fL 79.4-94.8 H (test code = 753) MEAN CORPUSCULAR HEMOGLOBIN 30.8 pg 25.6-32.2 (BEAKER) (test code = 751) MEAN CORPUSCULAR HEMOGLOBIN CONC 30.7 GM/DL 32.2-35.5 L (BEAKER) (test code = 752) RED CELL DISTRIBUTION WIDTH 21.1 % 11.7-14.4 H (BEAKER) (test code = 412) PLATELET COUNT (BEAKER) (test code 89 K/CU MM 150-450 L = 756) MEAN PLATELET VOLUME (BEAKER) 11.6 fL 9.4-12.3 (test code = 754) NUCLEATED RED BLOOD CELLS (BEAKER) 0 /100 WBC 0-0 (test code = 413) NEUTROPHILS RELATIVE PERCENT 65 % (BEAKER) (test code = 429) LYMPHOCYTES RELATIVE PERCENT 19 % (BEAKER) (test code = 430) MONOCYTES RELATIVE PERCENT 13 % (BEAKER) (test code = 431) EOSINOPHILS RELATIVE PERCENT 2 % (BEAKER) (test code = 432) BASOPHILS RELATIVE PERCENT 1 % (BEAKER) (test code = 437) NEUTROPHILS ABSOLUTE COUNT 6.56 K/ L 1.56-6.13 H (BEAKER) (test code = 670) LYMPHOCYTES ABSOLUTE COUNT 1.87 K/ L 1.18-3.74 (BEAKER) (test code = 414) MONOCYTES ABSOLUTE COUNT (BEAKER) 1.34 K/ L 0.24-0.36 H (test code = 415) EOSINOPHILS ABSOLUTE COUNT 0.23 K/ L 0.04-0.36 (BEAKER) (test code = 416) BASOPHILS ABSOLUTE COUNT (BEAKER) 0.06 K/ L 0.01-0.08 (test code = 417) IMMATURE GRANULOCYTES-RELATIVE 1 % 0-1 PERCENT (BEAKER) (test code = 2801) [id number] 05:56:00 Test Item Value Reference Range Interpretation Comments PROTIME (BEAKER) (test code = 18.7 seconds 11.9-14.2 H 759) INR (BEAKER) (test code = 370) 1.7 <=5.9 PARTIAL THROMBOPLASTIN TIME 39.7 seconds 22.5-36.0 H (BEAKER) (test code = 760) Effective 10/24/2018: PT Reference Range ChangeNew: 11.9-14.2 Previous: 11.7- 14.7RECOMMENDED COUMADIN/WARFARIN INR THERAPY RANGESSTANDARD DOSE: 2.0-3.0 Includes: PROPHYLAXIS for venous thrombosis, systemic embolization; TREATMENT for venous thrombosis and/or pulmonary embolus.HIGH RISK: Target INR is 2.5-3.5 for patients wiht mechanical heart valves.BLOOD [id number] 02:01:00 Test Item Value Reference Range Interpretation Comments CULTURE (BEAKER) (test No growth in 5 days code = 1095) BLOOD [id number] 02:01:00 Test Item Value Reference Range Interpretation Comments CULTURE (BEAKER) (test No growth in 5 days code = 1095) POCT-GLUCOSE [id number] 00:06:00 Test Item Value Reference Range Interpretation Comments POC-GLUCOSE METER 118 mg/dL 70-110 H TESTED AT [facility] [address] ([facility]) (test code = ANALI Lorenzo [place] 1538) [address] POCT-GLUCOSE [id number] 17:25:00 Test Item Value Reference Range Interpretation Comments POC-GLUCOSE METER 105 mg/dL 70-110 TESTED AT [facility] 67[address] ([facility]) (test code = ANALI Lorenzo [place] 1538) [address] HEMOGLOBIN AND [id number] 14:25:00 Test Item Value Reference Range Interpretation Comments HEMOGLOBIN (BEAKER) (test code = 8.9 GM/DL 11.2-15.7 L 410) HEMATOCRIT (BEAKER) (test code = 28.5 % 34.1-44.9 L 411) Contact hospitalist if Hgb <7.0RAD, ABDOMEN/KUB, 1 VIEW [id number] 14:09:00 Reason for exam:->abd distentionFINAL REPORT Abdomen, one view CLINICAL INDICATION: Abdominal distention COMPARISON: 12/10/2018 IMPRESSION:Dilated small bowel loops are again noted throughout the abdomen, similarto prior. There is also gaseous distention of the ascending and transverse colon. No gas is noted inthe sigmoid colon or rectum. Overall, the bowel gas pattern is unchanged. Signed: Alex Jenkins Verified Date/Time: 12/12/2018 14:09:05 Reading Location: [address] Consult Reading Room RAD, CHEST, 1 VIEW, NON [id number] 14:06:00Reason for exam:->hypoxiaShould this be performed at [...] Jenkins Verified Date/Time: 12/12/2018 14:06:55 Reading Location: [place] [id number] Consult Reading Room POCT-GLUCOSE [id number] 12:31:00 Test Item Value Reference Range Interpretation Comments POC-GLUCOSE METER 194 mg/dL 70-110 H TESTED AT [facility] 67[address] (BEAKER) (test code = ANALI Lorenzo [place] 1538) [address] POCT-GLUCOSE [id number] 07:44:00 Test Item Value Reference Range Interpretation Comments POC-GLUCOSE METER 116 mg/dL 70-110 H TESTED AT [facility] 67[address] (BEAKER) (test code = ANALI Lorenzo [place] 1538) [address] [id number] 06:16:00 Test Item Value Reference Range Interpretation Comments PHOSPHORUS (BEAKER) (test code = 2.8 mg/dL 2.3-4.7 604) [id number] 06:16:00 Test Item Value Reference Range Interpretation Comments MAGNESIUM (BEAKER) (test code = 1.9 mg/dL 1.6-2.6 627) BASIC METABOLIC [id number] 06:16:00 Test Item Value Reference Range Interpretation Comments SODIUM (BEAKER) 140 meq/L 136-145 (test code = 381) POTASSIUM (BEAKER) 3.8 meq/L 3.5-5.1 (test code = 379) CHLORIDE (BEAKER) 106 meq/L 98-107 (test code = 382) CO2 (BEAKER) (test 29 meq/L 22-29 code = 355) BLOOD UREA NITROGEN 16 mg/dL 7-21 (BEAKER) (test code = 354) CREATININE (BEAKER) 0.73 mg/dL 0.57-1.25 (test code = 358) GLUCOSE RANDOM 101 mg/dL 70-105 (BEAKER) (test code = 652) CALCIUM (BEAKER) 8.8 mg/dL 8.4-10.2 (test code = 697) EGFR (BEAKER) (test 81 mL/min/1.73 ESTIMA NATHALIE GFR IS code = 1092) sq m NOT ACCURATE CREATININE CLEARANCE IN PREDICTING GLOMERULAR FILTRATION RATE . ESTIMATED GFR I S NOT APPLICABLE FOR DIALYSIS PATIEN TS. Specimen slightly ictericHEPATIC FUNCTION [id number] 06:16:00 Test Item Value Reference Range Interpretation Comments TOTAL PROTEIN (BEAKER) (test code = 5.5 gm/dL 6.0-8.3 L 770) ALBUMIN (BEAKER) (test code = 1145) 3.6 g/dL 3.5-5.0 BILIRUBIN TOTAL (BEAKER) (test code 2.1 mg/dL 0.2-1.2 H = 377) BILIRUBIN DIRECT (BEAKER) (test 1.0 mg/dL 0.1-0.5 H code = 706) ALKALINE PHOSPHATASE (BEAKER) (test 52 U/L 40-150 code = 346) AST (SGOT) (BEAKER) (test code = 39 U/L 5-34 H 353) ALT (SGPT) (BEAKER) (test code = 70 U/L 6-55 H 347) Specimen slightly ictericPT/[id number] 05:33:00 Test Item Value Reference Range Interpretation Comments PROTIME (BEAKER) (test code = 19.9 seconds 11.9-14.2 H 759) INR (BEAKER) (test code = 370) 1.8 <=5.9 PARTIAL THROMBOPLASTIN TIME 38.2 seconds 22.5-36.0 H (BEAKER) (test code = 760) Effective 10/24/2018: PT Reference Range ChangeNew: 11.9-14.2 Previous: 11.7- 14.7RECOMMENDED COUMADIN/WARFARIN INR THERAPY RANGESSTANDARD DOSE: 2.0-3.0 Includes: PROPHYLAXIS for venous thrombosis, systemic embolization; TREATMENT for venous thrombosis and/or pulmonary embolus.HIGH RISK: Target INR is 2.5-3.5 for patients wiht mechanical heart valves.CBC W/PLT COUNT & AUTO [id number] 05:21:00 Test Item Value Reference Range Interpretation Comments WHITE BLOOD CELL COUNT (BEAKER) 8.7 K/ L 3.5-10.5 (test code = 775) RED BLOOD CELL COUNT (BEAKER) 2.44 M/ L 3.93-5.22 L (test code = 761) HEMOGLOBIN (BEAKER) (test code = 7.5 GM/DL 11.2-15.7 L 410) HEMATOCRIT (BEAKER) (test code = 24.5 % 34.1-44.9 L 411) MEAN CORPUSCULAR VOLUME (BEAKER) 100.4 fL 79.4-94.8 H (test code = 753) MEAN CORPUSCULAR HEMOGLOBIN 30.7 pg 25.6-32.2 (BEAKER) (test code = 751) MEAN CORPUSCULAR HEMOGLOBIN CONC 30.6 GM/DL 32.2-35.5 L (BEAKER) (test code = 752) RED CELL DISTRIBUTION WIDTH 21.3 % 11.7-14.4 H (BEAKER) (test code = 412) PLATELET COUNT (BEAKER) (test code 83 K/CU MM 150-450 L = 756) MEAN PLATELET VOLUME (BEAKER) 11.5 fL 9.4-12.3 (test code = 754) NUCLEATED RED BLOOD CELLS (BEAKER) 0 /100 WBC 0-0 (test code = 413) NEUTROPHILS RELATIVE PERCENT 52 % (BEAKER) (test code = 429) LYMPHOCYTES RELATIVE PERCENT 27 % (BEAKER) (test code = 430) MONOCYTES RELATIVE PERCENT 16 % (BEAKER) (test code = 431) EOSINOPHILS RELATIVE PERCENT 4 % (BEAKER) (test code = 432) BASOPHILS RELATIVE PERCENT 1 % (BEAKER) (test code = 437) NEUTROPHILS ABSOLUTE COUNT 4.49 K/ L 1.56-6.13 (BEAKER) (test code = 670) LYMPHOCYTES ABSOLUTE COUNT 2.36 K/ L 1.18-3.74 (BEAKER) (test code = 414) MONOCYTES ABSOLUTE COUNT (BEAKER) 1.41 K/ L 0.24-0.36 H (test code = 415) EOSINOPHILS ABSOLUTE COUNT 0.34 K/ L 0.04-0.36 (BEAKER) (test code = 416) BASOPHILS ABSOLUTE COUNT (BEAKER) 0.05 K/ L 0.01-0.08 (test code = 417) IMMATURE GRANULOCYTES-RELATIVE 1 % 0-1 PERCENT (BEAKER) (test code = 2801) POCT-GLUCOSE [id number] 00:10:00 Test Item Value Reference Range Interpretation Comments POC-GLUCOSE METER 127 mg/dL 70-110 H TESTED AT [facility] 67[address] (BEAKER) (test code = ANA[place] 1538) [address] POCT-GLUCOSE [id number] 17:40:00 Test Item Value Reference Range Interpretation Comments POC-GLUCOSE METER 165 mg/dL 70-110 H TESTED AT [place] [address] (BEAKER) (test code = ANALI Lorenzo [place] 1538) [address] POCT-GLUCOSE [id number] 12:35:00 Test Item Value Reference Range Interpretation Comments POC-GLUCOSE METER 190 mg/dL 70-110 H TESTED AT [place] [address] (BEAKER) (test code = ANALI Lorenzo [place] 1538) [address] POCT-GLUCOSE [id number] 08:29:00 Test Item Value Reference Range Interpretation Comments POC-GLUCOSE METER 173 mg/dL 70-110 H TESTED AT [place] [address] (BEAKER) (test code = ANALI Lorenzo [facility] 1538) [address] CBC W/PLT COUNT & AUTO [id number] 05:21:00 Test Item Value Reference Range Interpretation Comments WHITE BLOOD CELL COUNT (BEAKER) 9.4 K/ L 3.5-10.5 (test code = 775) RED BLOOD CELL COUNT (BEAKER) 2.86 M/ L 3.93-5.22 L (test code = 761) HEMOGLOBIN (BEAKER) (test code = 8.9 GM/DL 11.2-15.7 L 410) HEMATOCRIT (BEAKER) (test code = 28.9 % 34.1-44.9 L 411) MEAN CORPUSCULAR VOLUME (BEAKER) 101.0 fL 79.4-94.8 H (test code = 753) MEAN CORPUSCULAR HEMOGLOBIN 31.1 pg 25.6-32.2 (BEAKER) (test code = 751) MEAN CORPUSCULAR HEMOGLOBIN CONC 30.8 GM/DL 32.2-35.5 L (BEAKER) (test code = 752) RED CELL DISTRIBUTION WIDTH 21.9 % 11.7-14.4 H (BEAKER) (test code = 412) PLATELET COUNT (BEAKER) (test 118 K/CU MM 150-450 L code = 756) MEAN PLATELET VOLUME (BEAKER) 11.2 fL 9.4-12.3 (test code = 754) NUCLEATED RED BLOOD CELLS 1 /100 WBC 0-0 H (BEAKER) (test code = 413) NEUTROPHILS RELATIVE PERCENT 55 % (BEAKER) (test code = 429) LYMPHOCYTES RELATIVE PERCENT 24 % (BEAKER) (test code = 430) MONOCYTES RELATIVE PERCENT 16 % (BEAKER) (test code = 431) EOSINOPHILS RELATIVE PERCENT 3 % (BEAKER) (test code = 432) BASOPHILS RELATIVE PERCENT 1 % (BEAKER) (test code = 437) NEUTROPHILS ABSOLUTE COUNT 5.22 K/ L 1.56-6.13 (BEAKER) (test code = 670) LYMPHOCYTES ABSOLUTE COUNT 2.30 K/ L 1.18-3.74 (BEAKER) (test code = 414) MONOCYTES ABSOLUTE COUNT (BEAKER) 1.50 K/ L 0.24-0.36 H (test code = 415) EOSINOPHILS ABSOLUTE COUNT 0.30 K/ L 0.04-0.36 (BEAKER) (test code = 416) BASOPHILS ABSOLUTE COUNT (BEAKER) 0.07 K/ L 0.01-0.08 (test code = 417) IMMATURE GRANULOCYTES-RELATIVE 1 % 0-1 PERCENT (BEAKER) (test code = 2801) [id number] 05:18:00 Test Item Value Reference Range Interpretation Comments PHOSPHORUS (BEAKER) (test code = 2.1 mg/dL 2.3-4.7 L 604) [id number] 05:18:00 Test Item Value Reference Range Interpretation Comments MAGNESIUM (BEAKER) (test code = 2.2 mg/dL 1.6-2.6 627) BASIC METABOLIC [id number] 05:18:00 Test Item Value Reference Range Interpretation Comments SODIUM (BEAKER) 143 meq/L 136-145 (test code = 381) POTASSIUM (BEAKER) 3.8 meq/L 3.5-5.1 (test code = 379) CHLORIDE (BEAKER) 110 meq/L 98-107 H (test code = 382) CO2 (BEAKER) (test 27 meq/L 22-29 code = 355) BLOOD UREA NITROGEN 19 mg/dL 7-21 (BEAKER) (test code = 354) CREATININE (BEAKER) 0.75 mg/dL 0.57-1.25 (test code = 358) GLUCOSE RANDOM 118 mg/dL 70-105 H (BEAKER) (test code = 652) CALCIUM (BEAKER) 8.8 mg/dL 8.4-10.2 (test code = 697) EGFR (BEAKER) (test 79 mL/min/1.73 ESTIMA NATHALIE GFR IS code = 1092) sq m NOT ACCURATE CREATININE CLEARANCE IN PREDICTING GLOMERULAR FILTRATION RATE . ESTIMATED GFR I S NOT APPLICABLE FOR DIALYSIS PATIEN TS. HEPATIC FUNCTION [id number] 05:18:00 Test Item Value Reference Range Interpretation Comments TOTAL PROTEIN (BEAKER) (test code = 5.6 gm/dL 6.0-8.3 L 770) ALBUMIN (BEAKER) (test code = 1145) 3.3 g/dL 3.5-5.0 L BILIRUBIN TOTAL (BEAKER) (test code 1.8 mg/dL 0.2-1.2 H = 377) BILIRUBIN DIRECT (BEAKER) (test 0.9 mg/dL 0.1-0.5 H code = 706) ALKALINE PHOSPHATASE (BEAKER) (test 69 U/L 40-150 code = 346) AST (SGOT) (BEAKER) (test code = 51 U/L 5-34 H 353) ALT (SGPT) (BEAKER) (test code = 110 U/L 6-55 H 347) [id number] 05:05:00 Test Item Value Reference Range Interpretation Comments PROTIME (BEAKER) (test code = 19.4 seconds 11.9-14.2 H 759) INR (BEAKER) (test code = 370) 1.7 <=5.9 PARTIAL THROMBOPLASTIN TIME 35.9 seconds 22.5-36.0 (BEAKER) (test code = 760) Effective 10/24/2018: PT Reference Range ChangeNew: 11.9-14.2 Previous: 11.7- 14.7RECOMMENDED COUMADIN/WARFARIN INR THERAPY RANGESSTANDARD DOSE: 2.0-3.0 Includes: PROPHYLAXIS for venous thrombosis, systemic embolization; TREATMENT for venous thrombosis and/or pulmonary embolus.HIGH RISK: Target INR is 2.5-3.5 for patients wiht mechanical heart valves.[id number] 05:05:00 Test Item Value Reference Range Interpretation Comments FIBRINOGEN LEVEL (BEAKER) (test 184 mg/dl 225-434 L code = 658) LACTIC ACID, [id number] 05:02:00 Test Item Value Reference Range Interpretation Comments LACTATE BLOOD VENOUS (2) (BEAKER) 1.8 mmol/L 0.5-2.2 (test code = 2872) POCT-GLUCOSE [id number] 22:06:00 Test Item Value Reference Range Interpretation Comments POC-GLUCOSE METER 295 mg/dL 70-110 H TESTED AT [facility] 6720 ([facility]) (test code = ANALI [place] 1538) [address] POCT-GLUCOSE [id number] 18:38:00 Test Item Value Reference Range Interpretation Comments POC-GLUCOSE METER 181 mg/dL 70-110 H TESTED AT [facility] 6720 ([facility]) (test code = [place] 1538) [address] BLOOD [id number] 16:53:00 Test Item Value Reference Range Interpretation Comments CULTURE A From Anaerobic Bottle ([facility]) (test Only Coagulas e code = 1095) negative Staphylococcus GRAM STAIN From anaerobic RESULT ([facility]) bottle only: gram (test code = positive cocci in 1123) clusters POCT-GLUCOSE [id number] 13:01:00 Test Item Value Reference Range Interpretation Comments POC-GLUCOSE METER 143 mg/dL 70-110 H TESTED AT [place] [address] ([facility]) (test code = ANALI Lorenzo [facility] 1538) [address] RAD, ABDOMEN/KUB, 1 VIEW [id number] 08:18:00Reason for exam:->ileusFINAL REPORT INDICATION:Ileus. COMPARISON: December [...] pain pump again noted. Signed: Gabriel Borja MDRort Verified Date/Time: 12/10/2018 08:18:25 Reading Location: [facility] Diagnostic Imaging Reading Room - [place] [address] CBC W/PLT COUNT & AUTO [id number] 07:36:00 Test Item Value Reference Range Interpretation Comments WHITE BLOOD CELL COUNT (BEAKER) 10.7 K/ L 3.5-10.5 H (test code = 775) RED BLOOD CELL COUNT (BEAKER) 2.84 M/ L 3.93-5.22 L (test code = 761) HEMOGLOBIN (BEAKER) (test code = 8.7 GM/DL 11.2-15.7 L 410) HEMATOCRIT (BEAKER) (test code = 28.5 % 34.1-44.9 L 411) MEAN CORPUSCULAR VOLUME (BEAKER) 100.4 fL 79.4-94.8 H (test code = 753) MEAN CORPUSCULAR HEMOGLOBIN 30.6 pg 25.6-32.2 (BEAKER) (test code = 751) MEAN CORPUSCULAR HEMOGLOBIN CONC 30.5 GM/DL 32.2-35.5 L (BEAKER) (test code = 752) RED CELL DISTRIBUTION WIDTH 22.5 % 11.7-14.4 H (BEAKER) (test code = 412) PLATELET COUNT (BEAKER) (test 120 K/CU MM 150-450 L code = 756) MEAN PLATELET VOLUME (BEAKER) 11.5 fL 9.4-12.3 (test code = 754) NUCLEATED RED BLOOD CELLS 1 /100 WBC 0-0 H (BEAKER) (test code = 413) (CELLAVISION MANUAL DIFF)[id number] 07:36:00 Test Item Value Reference Range Interpretation Comments NEUTROPHILS - REL 81 % (CELLAVISION)(BEAKER) (test code = 2816) LYMPHOCYTES - REL 9 % (CELLAVISION)(BEAKER) (test code = 2817) MONOCYTES - REL 8 % (CELLAVISION)(BEAKER) (test code = 2818) EOSINOPHILS - REL 1 % (CELLAVISION)(BEAKER) (test code = 2819) BASOPHILS - REL 1 % (CELLAVISION)(BEAKER) (test code = 2820) NEUTROPHILS - ABS 8.67 K/ul 1.56-6.13 H (CELLAVISION)(BEAKER) (test code = 2830) LYMPHOCYTES - ABS 0.96 K/ul 1.18-3.74 L (CELLAVISION)(BEAKER) (test code = 2831) MONOCYTES - ABS 0.86 K/uL 0.24-0.36 H (CELLAVISION)(BEAKER) (test code = 2832) EOSINOPHILS - ABS 0.11 K/uL 0.04-0.36 (CELLAVISION)(BEAKER) (test code = 2834) BASOPHILS - ABS 0.11 K/uL 0.01-0.08 H (CELLAVISION)(BEAKER) (test code = 2835) TOTAL COUNTED (BEAKER) (test code 100 = 1351) MANUAL NRBC PER 100 CELLS 1 /100 WBC 0-0 H (BEAKER) (test code = 1353) WBC MORPHOLOGY (BEAKER) (test Normal code = 487) PLT MORPHOLOGY (BEAKER) (test Normal code = 486) POLYCHROMATOPHILLIC RBCS(BEAKER) 2+ moderate (test code = 478) HYPOCHROMIA (BEAKER) (test code = 1+ few 963) ARTIFACT (CELLAVISION)(BEAKER) Present (test code = 3432) PLATELET CONCENTRATION Decreased (CELLAVISION)(BEAKER) (test code = 3438) Received comment: User comments: Slide comments:[id number] 05:18:00 Test Item Value Reference Range Interpretation Comments PHOSPHORUS (BEAKER) (test code = 2.5 mg/dL 2.3-4.7 604) [id number] 05:18:00 Test Item Value Reference Range Interpretation Comments MAGNESIUM (BEAKER) (test code = 2.2 mg/dL 1.6-2.6 627) BASIC METABOLIC [id number] 05:18:00 Test Item Value Reference Range Interpretation Comments SODIUM (BEAKER) 146 meq/L 136-145 H (test code = 381) POTASSIUM (BEAKER) 3.9 meq/L 3.5-5.1 (test code = 379) CHLORIDE (BEAKER) 113 meq/L 98-107 H (test code = 382) CO2 (BEAKER) (test 26 meq/L 22-29 code = 355) BLOOD UREA NITROGEN 19 mg/dL 7-21 (BEAKER) (test code = 354) CREATININE (BEAKER) 0.68 mg/dL 0.57-1.25 (test code = 358) GLUCOSE RANDOM 119 mg/dL 70-105 H (BEAKER) (test code = 652) CALCIUM (BEAKER) 8.4 mg/dL 8.4-10.2 (test code = 697) EGFR (BEAKER) (test 88 mL/min/1.73 ESTIMA NATHALIE GFR IS code = 1092) sq m NOT ACCURATE CREATININE CLEARANCE IN PREDICTING GLOMERULAR FILTRATION RATE . ESTIMATED GFR I S NOT APPLICABLE FOR DIALYSIS PATIEN TS. HEPATIC FUNCTION [id number] 05:18:00 Test Item Value Reference Range Interpretation Comments TOTAL PROTEIN (BEAKER) (test code = 5.5 gm/dL 6.0-8.3 L 770) ALBUMIN (BEAKER) (test code = 1145) 3.3 g/dL 3.5-5.0 L BILIRUBIN TOTAL (BEAKER) (test code 2.0 mg/dL 0.2-1.2 H = 377) BILIRUBIN DIRECT (BEAKER) (test 1.0 mg/dL 0.1-0.5 H code = 706) ALKALINE PHOSPHATASE (BEAKER) (test 65 U/L 40-150 code = 346) AST (SGOT) (BEAKER) (test code = 52 U/L 5-34 H 353) ALT (SGPT) (BEAKER) (test code = 136 U/L 6-55 H 347) LACTIC ACID, [id number] 05:00:00 Test Item Value Reference Range Interpretation Comments LACTATE BLOOD VENOUS (2) (BEAKER) 2.0 mmol/L 0.5-2.2 (test code = 2872) [id number] 04:39:00 Test Item Value Reference Range Interpretation Comments FIBRINOGEN LEVEL (BEAKER) (test 221 mg/dl 225-434 L code = 658) [id number] 04:39:00 Test Item Value Reference Range Interpretation Comments PROTIME (BEAKER) (test code = 17.5 seconds 11.9-14.2 H 759) INR (BEAKER) (test code = 370) 1.5 <=5.9 PARTIAL THROMBOPLASTIN TIME 37.8 seconds 22.5-36.0 H (BEAKER) (test code = 760) Effective 10/24/2018: PT Reference Range ChangeNew: 11.9-14.2 Previous: 11.7- 14.7RECOMMENDED COUMADIN/WARFARIN INR THERAPY RANGESSTANDARD DOSE: 2.0-3.0 Includes: PROPHYLAXIS for venous thrombosis, systemic embolization; TREATMENT for venous thrombosis and/or pulmonary embolus.HIGH RISK: Target INR is 2.5-3.5 for patients wiht mechanical heart valves.U/S, ABDOMINAL, [id number] 01:07:00Reason for exam:->ASCITES EVAL Should this be performed at the bedside?->YesFINAL REPORT Exam: Limited abdominal ultrasound. Clinical History: ASCITES EVAL. Comparison: No prior study for direct comparison. Findings: Limited abdominal ultrasound was performed evaluating all four abdominal quadrants to evaluate for ascites. There is small ascites in the right upper quadrant. Impression: Small right upper quadrant ascites. Signed: Flor Willis Verified Date/Time: 12/10/2018 01:07:16 POCT- GLUCOSE [id number] 00:25:00 Test Item Value Reference Range Interpretation Comments POC-GLUCOSE METER 134 mg/dL 70-110 H TESTED AT [place] [address] ([facility]) (test code = [facility] 1538) [address] BLOOD [id number] 20:01:00 Test Item Value Reference Range Interpretation Comments CULTURE ([facility]) (test No growth in 5 days code = 1095) HEMOGLOBIN AND [id number] 17:57:00 Test Item Value Reference Range Interpretation Comments HEMOGLOBIN ([facility]) (test code = 8.8 GM/DL 11.2-15.7 L 410) HEMATOCRIT ([facility]) (test code = 28.2 % 34.1-44.9 L 411) POCT-GLUCOSE [id number] 17:57:00 Test Item Value Reference Range Interpretation Comments POC-GLUCOSE METER 175 mg/dL 70-110 H TESTED AT [place] [address] ([facility]) (test code = [facility] 1538) [address] POCT-GLUCOSE [id number] 13:23:00 Test Item Value Reference Range Interpretation Comments POC-GLUCOSE METER 110 mg/dL 70-110 TESTED AT [place] [address] ([facility]) (test code = [facility] 1538) [address] CBC W/PLT COUNT & AUTO [id number] 09:54:00 Test Item Value Reference Range Interpretation Comments WHITE BLOOD CELL COUNT ([facility]) 9.9 K/ L 3.5-10.5 (test code = 775) RED BLOOD CELL COUNT (BEAKER) 2.64 M/ L 3.93-5.22 L (test code = 761) HEMOGLOBIN (BEAKER) (test code = 8.3 GM/DL 11.2-15.7 L 410) HEMATOCRIT (BEAKER) (test code = 26.2 % 34.1-44.9 L 411) MEAN CORPUSCULAR VOLUME (BEAKER) 99.2 fL 79.4-94.8 H (test code = 753) MEAN CORPUSCULAR HEMOGLOBIN 31.4 pg 25.6-32.2 (BEAKER) (test code = 751) MEAN CORPUSCULAR HEMOGLOBIN CONC 31.7 GM/DL 32.2-35.5 L (BEAKER) (test code = 752) RED CELL DISTRIBUTION WIDTH 22.9 % 11.7-14.4 H (BEAKER) (test code = 412) PLATELET COUNT (BEAKER) (test 118 K/CU MM 150-450 L code = 756) MEAN PLATELET VOLUME (BEAKER) 11.5 fL 9.4-12.3 (test code = 754) NUCLEATED RED BLOOD CELLS 1 /100 WBC 0-0 H (BEAKER) (test code = 413) (CELLAVISION MANUAL DIFF)2018-12-09 09:54:00 Test Item Value Reference Range Interpretation Comments NEUTROPHILS - REL 76 % (CELLAVISION)(BEAKER) (test code = 2816) LYMPHOCYTES - REL 11 % (CELLAVISION)(BEAKER) (test code = 2817) MONOCYTES - REL 10 % (CELLAVISION)(BEAKER) (test code = 2818) EOSINOPHILS - REL 2 % (CELLAVISION)(BEAKER) (test code = 2819) BASOPHILS - REL 1 % (CELLAVISION)(BEAKER) (test code = 2820) NEUTROPHILS - ABS 7.52 K/ul 1.56-6.13 H (CELLAVISION)(BEAKER) (test code = 2830) LYMPHOCYTES - ABS 1.09 K/ul 1.18-3.74 L (CELLAVISION)(BEAKER) (test code = 2831) MONOCYTES - ABS 0.99 K/uL 0.24-0.36 H (CELLAVISION)(BEAKER) (test code = 2832) EOSINOPHILS - ABS 0.20 K/uL 0.04-0.36 (CELLAVISION)(BEAKER) (test code = 2834) BASOPHILS - ABS 0.10 K/uL 0.01-0.08 H (CELLAVISION)(BEAKER) (test code = 2835) TOTAL COUNTED (BEAKER) (test code 100 = 1351) MANUAL NRBC PER 100 CELLS 1 /100 WBC 0-0 H (BEAKER) (test code = 1353) WBC MORPHOLOGY (BEAKER) (test Normal code = 487) PLT MORPHOLOGY (BEAKER) (test Normal code = 486) POLYCHROMATOPHILLIC RBCS(BEAKER) 1+ few (test code = 478) ANISOCYTOSIS (BEAKER) (test code 1+ few = 961) MACROCYTES (BEAKER) (test code = 1+ few 964) POIKILOCYTES (BEAKER) (test code 2+ moderate = 966) ARTIFACT (CELLAVISION)(BEAKER) Present (test code = 3432) PLATELET CONCENTRATION Decreased (CELLAVISION)(BEAKER) (test code = 3438) Received comment: User comments: Slide comments:RAD, ABDOMEN/KUB, 1 VIEW AP 2018-12-09 07:43:00Reason for exam:->ileusFINAL REPORT ONE VIEW ABDOMEN HISTORY: Adynamic ileus COMPARISON: 12/08/2018 FINDINGS: Single supine AP image of the abdomen was obtained. There are multiple mildly dilated loops oflarge and small intestine consistent with the clinical history of adynamic ileus. Overall gaseous distention is without appreciable change. No obvious free air is seen on these supine images. Nasogastric tube tip is in the region of the stomach. There are surgical clips in the right abdomen. Signed: Macey Mayoeport Verified Date/Time: 12/09/2018 07:43:19 Reading Location: [address] Reading Room POCT-GLUCOSE [id number] 05:30:00 Test Item Value Reference Range Interpretation Comments POC-GLUCOSE METER 112 mg/dL 70-110 H TESTED AT [facility] 6720 (BEAKER) (test code = ANA[place] 1538) [address] [id number] 05:09:00 Test Item Value Reference Range Interpretation Comments MAGNESIUM (BEAKER) 2.1 mg/dL 1.6-2.6 Specimen slightly (test code = 627) hemolyzed [id number] 05:09:00 Test Item Value Reference Range Interpretation Comments PHOSPHORUS (BEAKER) 2.2 mg/dL 2.3-4.7 L Specimen slightly (test code = 604) hemolyzed BASIC METABOLIC [id number] 05:09:00 Test Item Value Reference Range Interpretation Comments SODIUM (BEAKER) 140 meq/L 136-145 (test code = 381) POTASSIUM (BEAKER) 4.1 meq/L 3.5-5.1 Specimen slightly (test code = 379) hemolyzed CHLORIDE (BEAKER) 108 meq/L 98-107 H (test code = 382) CO2 (BEAKER) (test 24 meq/L 22-29 code = 355) BLOOD UREA NITROGEN 18 mg/dL 7-21 (BEAKER) (test code = 354) CREATININE (BEAKER) 0.65 mg/dL 0.57-1.25 Specimen slightly (test code = 358) hemolyzed GLUCOSE RANDOM 124 mg/dL 70-105 H (BEAKER) (test code = 652) CALCIUM (BEAKER) 8.1 mg/dL 8.4-10.2 L (test code = 697) EGFR (BEAKER) (test 93 mL/min/1.73 ESTIMA NATHALIE GFR IS code = 1092) sq m NOT ACCURATE CREATININE CLEARANCE IN PREDICTING GLOMERULAR FILTRATION RATE . ESTIMATED GFR I S NOT APPLICABLE FOR DIALYSIS PATIEN TS. Specimen slightly ictericHEPATIC FUNCTION [id number] 05:09:00 Test Item Value Reference Range Interpretation Comments TOTAL PROTEIN (BEAKER) 5.4 gm/dL 6.0-8.3 L Speci men slightly (test code = 770) hemolyzed ALBUMIN (BEAKER) (test 3.2 g/dL 3.5-5.0 L Speci men slightly code = 1145) hemolyzed BILIRUBIN TOTAL 2.2 mg/dL 0.2-1.2 H Specimen sli ghtly (BEAKER) (test code = hemoly zed 377) BILIRUBIN DIRECT 0.9 mg/dL 0.1-0.5 H Specimen sl ightly (BEAKER) (test code = hemoly zed 706) ALKALINE PHOSPHATASE 63 U/L 40-150 (BEAKER) (test code = 346) AST (SGOT) (BEAKER) 70 U/L 5-34 H Specimen slightly (test code = 353) hemolyzed ALT (SGPT) (BEAKER) 169 U/L 6-55 H Specimen slightly (test code = 347) hemolyzed Specimen slightly ictericLACTIC ACID, [id number] 04:54:00 Test Item Value Reference Range Interpretation Comments LACTATE BLOOD VENOUS (2) (BEAKER) 1.3 mmol/L 0.5-2.2 (test code = 2872) Specimen slightly ictericPT/[id number] 04:45:00 Test Item Value Reference Range Interpretation Comments PROTIME (BEAKER) (test code = 16.8 seconds 11.9-14.2 H 759) INR (BEAKER) (test code = 370) 1.4 <=5.9 PARTIAL THROMBOPLASTIN TIME 29.5 seconds 22.5-36.0 (BEAKER) (test code = 760) Effective 10/24/2018: PT Reference Range ChangeNew: 11.9-14.2 Previous: 11.7- 14.7RECOMMENDED COUMADIN/WARFARIN INR THERAPY RANGESSTANDARD DOSE: 2.0-3.0 Includes: PROPHYLAXIS for venous thrombosis, systemic embolization; TREATMENT for venous thrombosis and/or pulmonary embolus.HIGH RISK: Target INR is 2.5-3.5 for patients wiht mechanical heart valves.[id number] 04:45:00 Test Item Value Reference Range Interpretation Comments FIBRINOGEN LEVEL (BEAKER) (test 212 mg/dl 225-434 L code = 658) POCT-GLUCOSE [id number] 23:51:00 Test Item Value Reference Range Interpretation Comments POC-GLUCOSE METER 127 mg/dL 70-110 H TESTED AT [facility] 6720 ([facility]) (test code = [facility] [place] 1538) [address] [id number] 18:46:00 Test Item Value Reference Range Interpretation Comments PHOSPHORUS (BEAKER) (test code = 2.8 mg/dL 2.3-4.7 604) [id number] 18:46:00 Test Item Value Reference Range Interpretation Comments MAGNESIUM (BEAKER) (test code = 2.3 mg/dL 1.6-2.6 627) BASIC METABOLIC [id number] 18:46:00 Test Item Value Reference Range Interpretation Comments SODIUM (BEAKER) 139 meq/L 136-145 (test code = 381) POTASSIUM (BEAKER) 4.0 meq/L 3.5-5.1 (test code = 379) CHLORIDE (BEAKER) 107 meq/L 98-107 (test code = 382) CO2 (BEAKER) (test 24 meq/L 22-29 code = 355) BLOOD UREA NITROGEN 19 mg/dL 7-21 (BEAKER) (test code = 354) CREATININE (BEAKER) 0.68 mg/dL 0.57-1.25 (test code = 358) GLUCOSE RANDOM 114 mg/dL 70-105 H (BEAKER) (test code = 652) CALCIUM (BEAKER) 8.2 mg/dL 8.4-10.2 L (test code = 697) EGFR (BEAKER) (test 88 mL/min/1.73 ESTIMA NATHALIE GFR IS code = 1092) sq m NOT ACCURATE CREATININE CLEARANCE IN PREDICTING GLOMERULAR FILTRATION RATE . ESTIMATED GFR I S NOT APPLICABLE FOR DIALYSIS PATIEN TS. Specimen slightly ictericPOCT-GLUCOSE [id number] 17:54:00 Test Item Value Reference Range Interpretation Comments POC-GLUCOSE METER 93 mg/dL 70-110 TESTED AT [facility] 6720 ([facility]) (test code = ANALI Lorenzo [facility] [address] 1538) LACTIC ACID, [id number] 12:49:00 Test Item Value Reference Range Interpretation Comments LACTATE BLOOD VENOUS (2) (BEAKER) 1.9 mmol/L 0.5-2.2 (test code = 2872) Specimen slightly ictericPOCT-GLUCOSE [id number] 12:09:00 Test Item Value Reference Range Interpretation Comments POC-GLUCOSE METER 142 mg/dL 70-110 H TESTED AT [facility] 6720 ([facility]) (test code = [facility] 1538) [address] RAD, ABDOMEN/KUB, 1 VIEW [id number] 08:31:00Reason for exam:->ileusShould this be performed at [...] MDReport Verified Date/Time: 12/08/2018 08:31:46 Reading Location: [facility] C013Y CT Body Reading Room [id number] 08:02:00 Test Item Value Reference Range Interpretation Comments PHOSPHORUS (BEAKER) (test code = 1.7 mg/dL 2.3-4.7 L 604) POCT-GLUCOSE [id number] 05:40:00 Test Item Value Reference Range Interpretation Comments POC-GLUCOSE METER 128 mg/dL 70-110 H TESTED AT [facility] 6720 (BEAKER) (test code = VIKTORZANE Lorenzo [facility] 1538) [address] [id number] 05:14:00 Test Item Value Reference Range Interpretation Comments MAGNESIUM (BEAKER) (test code = 2.2 mg/dL 1.6-2.6 627) BASIC METABOLIC [id number] 05:14:00 Test Item Value Reference Range Interpretation Comments SODIUM (BEAKER) 141 meq/L 136-145 (test code = 381) POTASSIUM (BEAKER) 4.0 meq/L 3.5-5.1 (test code = 379) CHLORIDE (BEAKER) 109 meq/L 98-107 H (test code = 382) CO2 (BEAKER) (test 25 meq/L 22-29 code = 355) BLOOD UREA NITROGEN 21 mg/dL 7-21 (BEAKER) (test code = 354) CREATININE (BEAKER) 0.66 mg/dL 0.57-1.25 (test code = 358) GLUCOSE RANDOM 118 mg/dL 70-105 H (BEAKER) (test code = 652) CALCIUM (BEAKER) 8.3 mg/dL 8.4-10.2 L (test code = 697) EGFR (BEAKER) (test 91 mL/min/1.73 ESTIMA NATHALIE GFR IS code = 1092) sq m NOT ACCURATE CREATININE CLEARANCE IN PREDICTING GLOMERULAR FILTRATION RATE . ESTIMATED GFR I S NOT APPLICABLE FOR DIALYSIS PATIEN TS. Specimen slightly ictericHEPATIC FUNCTION [id number] 05:14:00 Test Item Value Reference Range Interpretation Comments TOTAL PROTEIN (BEAKER) (test code = 5.4 gm/dL 6.0-8.3 L 770) ALBUMIN (BEAKER) (test code = 1145) 3.4 g/dL 3.5-5.0 L BILIRUBIN TOTAL (BEAKER) (test code 2.4 mg/dL 0.2-1.2 H = 377) BILIRUBIN DIRECT (BEAKER) (test 1.0 mg/dL 0.1-0.5 H code = 706) ALKALINE PHOSPHATASE (BEAKER) (test 65 U/L 40-150 code = 346) AST (SGOT) (BEAKER) (test code = 94 U/L 5-34 H 353) ALT (SGPT) (BEAKER) (test code = 229 U/L 6-55 H 347) Specimen slightly [id number] 05:09:00 Test Item Value Reference Range Interpretation Comments FIBRINOGEN LEVEL (BEAKER) (test 223 mg/dl 225-434 L code = 658) [id number] 05:09:00 Test Item Value Reference Range Interpretation Comments PROTIME (BEAKER) (test code = 16.4 seconds 11.9-14.2 H 759) INR (BEAKER) (test code = 370) 1.4 <=5.9 PARTIAL THROMBOPLASTIN TIME 32.1 seconds 22.5-36.0 (BEAKER) (test code = 760) Effective 10/24/2018: PT Reference Range ChangeNew: 11.9-14.2 Previous: 11.7- 14.7RECOMMENDED COUMADIN/WARFARIN INR THERAPY RANGESSTANDARD DOSE: 2.0-3.0 Includes: PROPHYLAXIS for venous thrombosis, systemic embolization; TREATMENT for venous thrombosis and/or pulmonary embolus.HIGH RISK: Target INR is 2.5-3.5 for patients wiht mechanical heart valves.CBC W/PLT COUNT & AUTO [id number] 04:41:00 Test Item Value Reference Range Interpretation Comments WHITE BLOOD CELL COUNT (BEAKER) 10.2 K/ L 3.5-10.5 (test code = 775) RED BLOOD CELL COUNT (BEAKER) 2.63 M/ L 3.93-5.22 L (test code = 761) HEMOGLOBIN (BEAKER) (test code = 8.3 GM/DL 11.2-15.7 L 410) HEMATOCRIT (BEAKER) (test code = 26.1 % 34.1-44.9 L 411) MEAN CORPUSCULAR VOLUME (BEAKER) 99.2 fL 79.4-94.8 H (test code = 753) MEAN CORPUSCULAR HEMOGLOBIN 31.6 pg 25.6-32.2 (BEAKER) (test code = 751) MEAN CORPUSCULAR HEMOGLOBIN CONC 31.8 GM/DL 32.2-35.5 L (BEAKER) (test code = 752) RED CELL DISTRIBUTION WIDTH 23.0 % 11.7-14.4 H (BEAKER) (test code = 412) PLATELET COUNT (BEAKER) (test 106 K/CU MM 150-450 L code = 756) MEAN PLATELET VOLUME (BEAKER) 11.6 fL 9.4-12.3 (test code = 754) NUCLEATED RED BLOOD CELLS 2 /100 WBC 0-0 H (BEAKER) (test code = 413) NEUTROPHILS RELATIVE PERCENT 53 % (BEAKER) (test code = 429) LYMPHOCYTES RELATIVE PERCENT 26 % (BEAKER) (test code = 430) MONOCYTES RELATIVE PERCENT 17 % (BEAKER) (test code = 431) EOSINOPHILS RELATIVE PERCENT 2 % (BEAKER) (test code = 432) BASOPHILS RELATIVE PERCENT 0 % (BEAKER) (test code = 437) NEUTROPHILS ABSOLUTE COUNT 5.44 K/ L 1.56-6.13 (BEAKER) (test code = 670) LYMPHOCYTES ABSOLUTE COUNT 2.68 K/ L 1.18-3.74 (BEAKER) (test code = 414) MONOCYTES ABSOLUTE COUNT (BEAKER) 1.78 K/ L 0.24-0.36 H (test code = 415) EOSINOPHILS ABSOLUTE COUNT 0.21 K/ L 0.04-0.36 (BEAKER) (test code = 416) BASOPHILS ABSOLUTE COUNT (BEAKER) 0.03 K/ L 0.01-0.08 (test code = 417) IMMATURE GRANULOCYTES-RELATIVE 1 % 0-1 PERCENT (BEAKER) (test code = 2801) HEMOGLOBIN AND [id number] 04:38:00 Test Item Value Reference Range Interpretation Comments HEMOGLOBIN (BEAKER) (test code = 8.3 GM/DL 11.2-15.7 L 410) HEMATOCRIT (BEAKER) (test code = 26.1 % 34.1-44.9 L 411) POCT-GLUCOSE [id number] 00:02:00 Test Item Value Reference Range Interpretation Comments POC-GLUCOSE METER 125 mg/dL 70-110 H TESTED AT [facility] 6720 (BEAKER) (test code = [place] 1538) [address] [id number] 23:12:00 Test Item Value Reference Range Interpretation Comments POTASSIUM (BEAKER) (test code = 5.1 meq/L 3.5-5.1 379) [id number] 23:12:00 Test Item Value Reference Range Interpretation Comments MAGNESIUM (BEAKER) (test code = 2.3 mg/dL 1.6-2.6 627) HEMOGLOBIN AND [id number] 22:46:00 Test Item Value Reference Range Interpretation Comments HEMOGLOBIN (BEAKER) (test code = 7.8 GM/DL 11.2-15.7 L 410) HEMATOCRIT (BEAKER) (test code = 23.9 % 34.1-44.9 L 411) BLOOD CULTURE IDENTIFICATION [id number] 20:39:00 Test Item Value Reference Interpretation Comments Range LISTERIA MONOCYTOGENES Not detected Not detected (test code = 20160229) STAPHYLOCOCCUS (test Detected Not detected A Coagula se negative code = 20160503) Staph specie s (CoNS)- methici llin susceptibleFirs t-alvino e therapy: Cefa zolin or Oxacillin (Oxacillin pref erred if RADIO MECHANIC APPRENTICE involvem ent) MecA NOT DETECTEDPossibl e contamination. The likelihood of pathogenicity i s increased if th e organism is obs erved in multiple blo od cultures obtain ed from separate venipunctures.R efere nce Range: Not Detected STAPHYLOCOCCUS AUREUS Not detected Not detected (test code = 20160504) STREPTOCOCCUS (test Not detected Not detected code = 4741531) STREPTOCOCCUS Not detected Not detected AGALACTIAE (GROUP B) (test code = 1373375) STREPTOCOCCUS Not detected Not detected PNEUMONIAE (test code = 7301651) STREPTOCOCCUS PYOGENES Not detected Not detected (GROUP A) (test code = 2827703) ACINETOBACTER BAUMANNII Not detected Not detected (test code = 9255049) HAEMOPHILUS INFLUENZAE Not detected Not detected (test code = 2472948) NEISSERIA MENINGITIDIS Not detected Not detected (test code = 1216003) ENTEROBACTERIACEAE Not detected Not detected (test code = 8802420) ENTEROBACTER CLOACOE Not detected Not detected COMPLEX (test code = 1461944) KLEBSIELLA OXYTOCA Not detected Not detected (test code = 5865786) KLEBSIELLA PNEUMONIAE Not detected Not detected (test code = 1650) PROTEUS (test code = Not detected Not detected 7477102) SERRATIA MARCESCENS Not detected Not detected (test code = 4094334) LINDA ALBICANS (test Not detected Not detected code = 9949608) LINDA GLABRATA (test Not detected Not detected code = 3893522) LINDA KRUSEI (test Not detected Not detected code = 0098253) LINDA PARAPSILOSIS Not detected Not detected (test code = 8727809) LINDA TROPICALIS Not detected Not detected (test code = 6279053) ESCHERICHIA COLI (test Not detected Not detected code = 4960485) METHICILLIN-RESISTANCE Not detected Not detected GENE (test code = 9834555) VANCOMYCIN-RESISTANCE Not detected GENE (test code = 8789264) CARBAPENEM-RESISTANCE Not detected GENE (test code = 7223678) ENTEROCOCCUS-BEAKER Not detected Not detected (test code = 9792257) PSEUDOMONAS Not detected Not detected AERUGINOSA-BEAKER (test code = 7607540) Other bacteria and resistance markers not targeted [...] [facility] Molecular Diagnostics Laboratory using the [employer] Blood Culture ID Panel. It is FDA cleared and has been verified and approved by the [facility] Molecular Diagnostics Laboratory for clinical use. This laboratory is CLIA-certified and College ofAmerican Pathologists (CAP)-accredited to perform high complexity testing.POCT-GLUCOSE [id number] 18:12:00 Test Item Value Reference Range Interpretation Comments POC-GLUCOSE METER 146 mg/dL 70-110 H TESTED AT [facility] 7756 ([facility]) (test code = [place] 1538) [address] LACTIC ACID, [id number] 15:57:00 Test Item Value Reference Range Interpretation Comments LACTATE BLOOD VENOUS (2) ([facility]) 2.2 mmol/L 0.5-2.2 (test code = 2872) Specimen slightly ictericHEMOGLOBIN AND [id number] 15:42:00 Test Item Value Reference Range Interpretation Comments HEMOGLOBIN (BEAKER) (test code = 8.3 GM/DL 11.2-15.7 L 410) HEMATOCRIT (BEAKER) (test code = 25.0 % 34.1-44.9 L 411) RAD, ABDOMEN/KUB, 1 VIEW [id number] 15:11:00Reason for exam:->suspected ileusShould this be performed at the bedside?->YesFINAL REPORT Technique: Supine views of the abdomen dated 12/07/2018. HISTORY: Patel spected ileus. COMPARISON: Abdominal radiograph performed earlier the same day IMPRESSION:There has been no change in the appearance of the dilated loops of small bowel throughout the abdomen. Air is also seen in the ascending colon. Small bowel measures up to approximately 5.4 cm. No free intraperitoneal air. No abnormal soft tissue mass. Bones are osteopenic. Signed: Julia Sterneport Verified Date/Time: 12/07/2018 15:11:34 Reading Location: [facility] Reading Room [id number] 12:18:00 Test Item Value Reference Range Interpretation Comments PROCALCITONIN (BEAKER) (test code 0.09 ng/mL <0.05 H = 3036) SEPSIS RISK (ng/mL)Low: 0.05-0.50Intermediate: 0.51-2.00High: >=2.01POCT- GLUCOSE [id number] 12:08:00 Test Item Value Reference Range Interpretation Comments POC-GLUCOSE METER 128 mg/dL 70-110 H TESTED AT [facility] 6720 (BEAKER) (test code = ANA[facility] JUD[place] 1538) [address] LACTIC ACID, [id number] 11:54:00 Test Item Value Reference Range Interpretation Comments LACTATE BLOOD VENOUS (2) (BEAKER) 1.7 mmol/L 0.5-2.2 (test code = 2872) POCT-GLUCOSE [id number] 09:43:00 Test Item Value Reference Range Interpretation Comments POC-GLUCOSE METER 142 mg/dL 70-110 H TESTED AT [place] [address] ([facility]) (test code = ANALI Lorenzo [facility] 1538) [address] POCT-GLUCOSE [id number] 09:41:00 Test Item Value Reference Range Interpretation Comments POC-GLUCOSE METER 147 mg/dL 70-110 H TESTED AT [place] [address] ([facility]) (test code = ANALI Lorenzo [place] 1538) [address] POCT-GLUCOSE [id number] 09:38:00 Test Item Value Reference Range Interpretation Comments POC-GLUCOSE METER 149 mg/dL 70-110 H TESTED AT [place] [address] ([facility]) (test code = ANALI Lorenzo [facility] 1538) [address] POCT-GLUCOSE [id number] 09:38:00 Test Item Value Reference Range Interpretation Comments POC-GLUCOSE METER 147 mg/dL 70-110 H TESTED AT [place] [address] ([facility]) (test code = ANALI Lorenzo [facility] 1538) [address] VANCOMYCIN LEVEL, [id number] 09:37:00 Test Item Value Reference Range Interpretation Comments VANCOMYCIN TROUGH ([facility]) (test 10.5 ug/mL 10.0-20.0 code = 522) POCT-GLUCOSE [id number] 09:35:00 Test Item Value Reference Range Interpretation Comments POC-GLUCOSE METER 161 mg/dL 70-110 H TESTED AT [place] [address] ([facility]) (test code = ANALI Lorenzo [facility] 1538) [address] HEMOGLOBIN AND [id number] 09:18:00 Test Item Value Reference Range Interpretation Comments HEMOGLOBIN ([facility]) (test code = 9.3 GM/DL 11.2-15.7 L 410) HEMATOCRIT ([facility]) (test code = 28.0 % 34.1-44.9 L 411) RAD, CHEST, 1 VIEW, NON [id number] 09:12:00Reason for exam:->Picc line placementShould this be performed at the bedside?->YesFINAL REPORT TECHNIQUE: Frontal chest radiographs dated 12/07/2018. CLINICAL HIST ORY: PICC placement COMPARISON STUDY: Chest radiograph dated 12/06/2018 IMPRESSION:Left-sided PICC isseen with the tip projected over the right atrium. There is bibasilar atelectasis/scarring, unchanged. No pleural effusion or pneumothorax. Cardiomediastinal silhouette is normal in size. No pulmonary e steve. Bones are osteopenic. Signed: Julia Stern MDReport Verified Date/Time: 12/07/2018 09:12:03 Reading Location: [facility] Reading Room , ABDOMEN/KUB, 1 VIEW [id number] 04:39:00Reason for exam:->Concern for SBO vs Ileus [...] previously administered oral contrast. Signed: Sheng Goldman MDReport Verified Date/Time: 12/07/2018 04:39:54 Reading Location: [address] Reading Room [id number] 04:12:00 Test Item Value Reference Range Interpretation Comments PHOSPHORUS (BEAKER) (test code = 3.5 mg/dL 2.3-4.7 604) [id number] 04:12:00 Test Item Value Reference Range Interpretation Comments MAGNESIUM (BEAKER) (test code = 1.8 mg/dL 1.6-2.6 627) BASIC METABOLIC [id number] 04:12:00 Test Item Value Reference Range Interpretation Comments SODIUM (BEAKER) 141 meq/L 136-145 (test code = 381) POTASSIUM (BEAKER) 3.5 meq/L 3.5-5.1 (test code = 379) CHLORIDE (BEAKER) 109 meq/L 98-107 H (test code = 382) CO2 (BEAKER) (test 21 meq/L 22-29 L code = 355) BLOOD UREA NITROGEN 27 mg/dL 7-21 H (BEAKER) (test code = 354) CREATININE (BEAKER) 0.77 mg/dL 0.57-1.25 (test code = 358) GLUCOSE RANDOM 144 mg/dL 70-105 H (BEAKER) (test code = 652) CALCIUM (BEAKER) 8.6 mg/dL 8.4-10.2 (test code = 697) EGFR (BEAKER) (test 76 mL/min/1.73 ESTIMA NATHALIE GFR IS code = 1092) sq m NOT ACCURATE CREATININE CLEARANCE IN PREDICTING GLOMERULAR FILTRATION RATE . ESTIMATED GFR I S NOT APPLICABLE FOR DIALYSIS PATIEN TS. Specimen slightly ictericHEPATIC FUNCTION [id number] 04:12:00 Test Item Value Reference Range Interpretation Comments TOTAL PROTEIN (BEAKER) (test code = 5.9 gm/dL 6.0-8.3 L 770) ALBUMIN (BEAKER) (test code = 1145) 3.4 g/dL 3.5-5.0 L BILIRUBIN TOTAL (BEAKER) (test code 2.3 mg/dL 0.2-1.2 H = 377) BILIRUBIN DIRECT (BEAKER) (test 1.0 mg/dL 0.1-0.5 H code = 706) ALKALINE PHOSPHATASE (BEAKER) (test 78 U/L 40-150 code = 346) AST (SGOT) (BEAKER) (test code = 204 U/L 5-34 H 353) ALT (SGPT) (BEAKER) (test code = 392 U/L 6-55 H 347) Specimen slightly ictericLACTIC ACID, [id number] 03:49:00 Test Item Value Reference Range Interpretation Comments LACTATE BLOOD VENOUS 2.3 mmol/L 0.5-2.2 H Specime n slightly (2) (BEAKER) (test hemolyzed code = 8996) Specimen slightly ictericPT/[id number] 03:47:00 Test Item Value Reference Range Interpretation Comments PROTIME (BEAKER) (test code = 16.3 seconds 11.9-14.2 H 759) INR (BEAKER) (test code = 370) 1.4 <=5.9 PARTIAL THROMBOPLASTIN TIME 25.9 seconds 22.5-36.0 (BEAKER) (test code = 760) Effective 10/24/2018: PT Reference Range ChangeNew: 11.9-14.2 Previous: 11.7- 14.7RECOMMENDED COUMADIN/WARFARIN INR THERAPY RANGESSTANDARD DOSE: 2.0-3.0 Includes: PROPHYLAXIS for venous thrombosis, systemic embolization; TREATMENT for venous thrombosis and/or pulmonary embolus.HIGH RISK: Target INR is 2.5-3.5 for patients wiht mechanical heart valves.[id number] 03:47:00 Test Item Value Reference Range Interpretation Comments FIBRINOGEN LEVEL (BEAKER) (test 252 mg/dl 225-434 code = 658) CBC W/PLT COUNT & AUTO [id number] 03:43:00 Test Item Value Reference Range Interpretation Comments WHITE BLOOD CELL COUNT (BEAKER) 14.3 K/ L 3.5-10.5 H (test code = 775) RED BLOOD CELL COUNT (BEAKER) 3.04 M/ L 3.93-5.22 L (test code = 761) HEMOGLOBIN (BEAKER) (test code = 9.6 GM/DL 11.2-15.7 L 410) HEMATOCRIT (BEAKER) (test code = 28.9 % 34.1-44.9 L 411) MEAN CORPUSCULAR VOLUME (BEAKER) 95.1 fL 79.4-94.8 H (test code = 753) MEAN CORPUSCULAR HEMOGLOBIN 31.6 pg 25.6-32.2 (BEAKER) (test code = 751) MEAN CORPUSCULAR HEMOGLOBIN CONC 33.2 GM/DL 32.2-35.5 (BEAKER) (test code = 752) RED CELL DISTRIBUTION WIDTH 22.7 % 11.7-14.4 H (BEAKER) (test code = 412) PLATELET COUNT (BEAKER) (test 133 K/CU MM 150-450 L code = 756) MEAN PLATELET VOLUME (BEAKER) 12.0 fL 9.4-12.3 (test code = 754) NUCLEATED RED BLOOD CELLS 3 /100 WBC 0-0 H (BEAKER) (test code = 413) NEUTROPHILS RELATIVE PERCENT 67 % (BEAKER) (test code = 429) LYMPHOCYTES RELATIVE PERCENT 17 % (BEAKER) (test code = 430) MONOCYTES RELATIVE PERCENT 15 % (BEAKER) (test code = 431) EOSINOPHILS RELATIVE PERCENT 0 % (BEAKER) (test code = 432) BASOPHILS RELATIVE PERCENT 0 % (BEAKER) (test code = 437) NEUTROPHILS ABSOLUTE COUNT 9.64 K/ L 1.56-6.13 H (BEAKER) (test code = 670) LYMPHOCYTES ABSOLUTE COUNT 2.41 K/ L 1.18-3.74 (BEAKER) (test code = 414) MONOCYTES ABSOLUTE COUNT (BEAKER) 2.13 K/ L 0.24-0.36 H (test code = 415) EOSINOPHILS ABSOLUTE COUNT 0.01 K/ L 0.04-0.36 L (BEAKER) (test code = 416) BASOPHILS ABSOLUTE COUNT (BEAKER) 0.06 K/ L 0.01-0.08 (test code = 417) IMMATURE GRANULOCYTES-RELATIVE 1 % 0-1 PERCENT (BEAKER) (test code = 2801) BLOOD GAS, [id number] 00:47:00 Test Item Value Reference Range Interpretation Comments PH VENOUS (BEAKER) (test code = 7.44 7.32-7.42 H 701) PCO2 VENOUS (BEAKER) (test code = 36 mmHg 41-51 L 755) PO2 VENOUS (BEAKER) (test code = 43 mmHg 25-40 H 702) O2 SATURATION VENOUS (BEAKER) 81.3 % 40.0-70.0 H (test code = 703) HCO3 VENOUS (BEAKER) (test code = 24 mmol/L 21-29 705) BASE EXCESS VENOUS (BEAKER) (test -0.2 mmol/L -2.0-3.0 code = 704) PATIENT TEMPERATURE (BEAKER) 36.7 C (test code = 1818) FIO2 (BEAKER) (test code = 1819) 21.0 % HEMOGLOBIN AND [id number] 00:36:00 Test Item Value Reference Range Interpretation Comments HEMOGLOBIN (BEAKER) (test code = 9.7 GM/DL 11.2-15.7 L 410) HEMATOCRIT (BEAKER) (test code = 29.0 % 34.1-44.9 L 411) CT, [id number] 00:24:00FINAL REPORT EXAM: CT of the abdomen and pelvis, without contrast CLINICAL HISTORY: Bowel obstruction, low- grade TECHNIQUE: CT of the abdomen and pelvis was performed without the in travenous administration of contrast. This exam was performed according to our departmental dose optimization program which includes automated exposure control, adjustment of the mA and/or kV accordingto patient's size and/or use of iterative reconstructive technique. COMPARISON: None FINDINGS: Please note study is limited due to lack of intravenous contrast. LOWER CHEST: Small bilateral pleural effusions with associated compressive atelectasis. Mild bibasilar discoid atelectasis and/or linear scarring. Mild superimposed pulmonary interstitial edema cannot be excluded. Calcified bilateral lower lobe granulomas. Small hiatal hernia. Mild diffuse mural thickening of the distal esophagus, nonspecificLIVER: Cirrhotic morphology.BILE DUCTS: Within normal limits.GALL BLADDER: Status post cholecystectomy.PANCREAS: Diffuse parenchymal atrophy.SPLEEN: Within normal limits.ADRENALS: Within normal limits.K IDNEYS/URETERS: Within normal limits. URINARY BLADDER: Collapsed around [...] the colon most pronounced in the ascending colonwhich may represent a colitis (infectious, inflammatory or ischemic). Nonvisualization of the appendix. PERITONEUM/RETROPERITONEUM: Small abdominal and small to moderate pelvic [...] ascending colon which may represent a colitis (infectious, inflammatory or ischemic). Alternative, this may be reactive to ascites. Follow-up colonoscopy after symptoms subsided is recommended to exclude malignancyin the ascending colon. Multiple dilated fluid-filled small bowel loops with air-fluid levels without a definite transition point which may represent an ileus or partial small bowel obstruction. Serialfollow-up abdominal radiographs are recommended to ensure passage of oral contrast into the colon toexclude a complete small bowel obstruction. Small hiatal hernia. Small abdominal and small to moderate pelvic ascites. No free air or fluid collection. Small bilateral pleural effusions. Mild superimposed pulmonary interstitial edema cannot be excluded. Signed: Flor Willisort Verified Date/Time: 12/07/2018 00:24:22 RAD, ABDOMEN/KUB, 1 VIEW [id number] 18:47:00Reason for exam:->abdominal distensionShould this be performed at the bedside?->YesFINAL REPORT ONE VIEW ABDOMEN HISTORY: Abdominal distention, bowel obstruction C OMPARISON: 12/04/2018 FINDINGS: 2 supine AP images of the abdomen and pelvis were obtained. There is gas in the stomach. There is gas in multiple dilated small bowel loops throughout the abdomen and pelvis. There is questionable gas in the large intestine. These findings may reflect a small bowel obstruction. Adynamic ileus is also a consideration. Overall, the small bowel distention is unchanged or slightly increased. No obvious free air is seen on these supine images. Signed: Macey Phipps Verified Date/Time: 12/06/2018 18:47:51 Reading Location: [address] Reading Room [id number] 18:17:00 Test Item Value Reference Range Interpretation Comments PHOSPHORUS (BEAKER) 3.0 mg/dL 2.3-4.7 Specimen slightly (test code = 604) hemolyzed BASIC METABOLIC [id number] 18:17:00 Test Item Value Reference Range Interpretation Comments SODIUM (BEAKER) 142 meq/L 136-145 (test code = 381) POTASSIUM (BEAKER) 3.3 meq/L 3.5-5.1 L Specimen slightly (test code = 379) hemolyzed CHLORIDE (BEAKER) 112 meq/L 98-107 H (test code = 382) CO2 (BEAKER) (test 20 meq/L 22-29 L code = 355) BLOOD UREA NITROGEN 25 mg/dL 7-21 H (BEAKER) (test code = 354) CREATININE (BEAKER) 0.73 mg/dL 0.57-1.25 Specimen slightly (test code = 358) hemolyzed GLUCOSE RANDOM 150 mg/dL 70-105 H (BEAKER) (test code = 652) CALCIUM (BEAKER) 8.2 mg/dL 8.4-10.2 L (test code = 697) EGFR (BEAKER) (test 81 mL/min/1.73 ESTIMA NATHALIE GFR IS code = 1092) sq m NOT ACCURATE CREATININE CLEARANCE IN PREDICTING GLOMERULAR FILTRATION RATE . ESTIMATED GFR I S NOT APPLICABLE FOR DIALYSIS PATIEN TS. RAD, CHEST, 1 VIEW, NON [id number] 18:15:00Reason for exam:->shortness of breathShould this be performed at the bedside?->YesFINAL REPORT History: Shortness of breath Comparison: 12/04/2018 Findings: Interval increase in horizontal linear opacities in the lower lungs bilaterally suggestive of subsegmental atelectasis or atypical pneumonitis. No pleural effusions or pneumothorax are identified. Cardiac shadow normal in size. No acute skeletal abnormalities are identified. Signed: Macey Phippsi fied Date/Time: 12/06/2018 18:15:51 Reading Location: [address] Transitional Reading Room W/PLT COUNT & AUTO [id number] 18:00:00 Test Item Value Reference Range Interpretation Comments WHITE BLOOD CELL COUNT (BEAKER) 12.6 K/ L 3.5-10.5 H (test code = 775) RED BLOOD CELL COUNT (BEAKER) 2.95 M/ L 3.93-5.22 L (test code = 761) HEMOGLOBIN (BEAKER) (test code = 9.3 GM/DL 11.2-15.7 L 410) HEMATOCRIT (BEAKER) (test code = 28.1 % 34.1-44.9 L 411) MEAN CORPUSCULAR VOLUME (BEAKER) 95.3 fL 79.4-94.8 H (test code = 753) MEAN CORPUSCULAR HEMOGLOBIN 31.5 pg 25.6-32.2 (BEAKER) (test code = 751) MEAN CORPUSCULAR HEMOGLOBIN CONC 33.1 GM/DL 32.2-35.5 (BEAKER) (test code = 752) RED CELL DISTRIBUTION WIDTH 23.1 % 11.7-14.4 H (BEAKER) (test code = 412) PLATELET COUNT (BEAKER) (test 126 K/CU MM 150-450 L code = 756) MEAN PLATELET VOLUME (BEAKER) 11.5 fL 9.4-12.3 (test code = 754) NUCLEATED RED BLOOD CELLS 3 /100 WBC 0-0 H (BEAKER) (test code = 413) (CELLAVISION MANUAL DIFF)2018-12-06 18:00:00 Test Item Value Reference Range Interpretation Comments NEUTROPHILS - REL 75 % (CELLAVISION)(BEAKER) (test code = 2816) LYMPHOCYTES - REL 15 % (CELLAVISION)(BEAKER) (test code = 2817) MONOCYTES - REL 7 % (CELLAVISION)(BEAKER) (test code = 2818) BASOPHILS - REL 1 % (CELLAVISION)(BEAKER) (test code = 2820) BANDS - REL (CELLAVISION)(BEAKER) 2 % 0-10 (test code = 2826) NEUTROPHILS - ABS 9.45 K/ul 1.56-6.13 H (CELLAVISION)(BEAKER) (test code = 2830) LYMPHOCYTES - ABS 1.89 K/ul 1.18-3.74 (CELLAVISION)(BEAKER) (test code = 2831) MONOCYTES - ABS 0.88 K/uL 0.24-0.36 H (CELLAVISION)(BEAKER) (test code = 2832) BASOPHILS - ABS 0.13 K/uL 0.01-0.08 H (CELLAVISION)(BEAKER) (test code = 2835) BANDS - ABS (CELLAVISION)(BEAKER) 0.25 K/uL 0.00-0.80 (test code = 2840) TOTAL COUNTED (BEAKER) (test code 100 = 1351) MANUAL NRBC PER 100 CELLS 3 /100 WBC 0-0 H (BEAKER) (test code = 1353) SMUDGE CELLS (BEAKER) (test code Present = 1371) GIANT PLATELETS (BEAKER) (test Present code = 313) POLYCHROMATOPHILLIC RBCS(BEAKER) 1+ few (test code = 478) ANISOCYTOSIS (BEAKER) (test code 2+ moderate = 961) MICROCYTES (BEAKER) (test code = 2+ moderate 965) POIKILOCYTES (BEAKER) (test code 1+ few = 966) ELLIPTOCYTES (BEAKER) (test code 1+ few = 962) ARTIFACT (CELLAVISION)(BEAKER) Present (test code = 3432) PLATELET CONCENTRATION Decreased (CELLAVISION)(BEAKER) (test code = 3438) Received comment: User comments: Slide comments:HEMOGLOBIN AND HEMATOCRIT 2018-12-06 17:32:00 Test Item Value Reference Range Interpretation Comments HEMOGLOBIN (BEAKER) (test code = 9.3 GM/DL 11.2-15.7 L 410) HEMATOCRIT (BEAKER) (test code = 28.1 % 34.1-44.9 L 411) ANTI-NUCLEAR ANTIBODY (SATNAM)2018-12-06 10:40:00 Test Item Value Reference Range Interpretation Comments ANTI-NUCLEAR ANTIBODY (SATNAM) (BEAKER) Negative Negative (test code = 418) Test performed by IFA method.Test performed by IFA method.LACTIC ACID, VENOUS 2018-12-06 09:53:00 Test Item Value Reference Range Interpretation Comments LACTATE BLOOD VENOUS (2) (BEAKER) 1.6 mmol/L 0.5-2.2 (test code = 2872) POCT-GLUCOSE [id number] 06:27:00 Test Item Value Reference Range Interpretation Comments POC-GLUCOSE METER 181 mg/dL 70-110 H TESTED AT [facility] [address] (BEAKER) (test code = [address] [place] 1538) [id number] 04:38:00 Test Item Value Reference Range Interpretation Comments PHOSPHORUS (BEAKER) 1.4 mg/dL 2.3-4.7 LL Specimen slightly (test code = 604) hemolyzed [id number] 04:33:00 Test Item Value Reference Range Interpretation Comments MAGNESIUM (BEAKER) 1.9 mg/dL 1.6-2.6 Specimen slightly (test code = 627) hemolyzed BASIC METABOLIC [id number] 04:33:00 Test Item Value Reference Range Interpretation Comments SODIUM (BEAKER) 146 meq/L 136-145 H (test code = 381) POTASSIUM (BEAKER) 3.4 meq/L 3.5-5.1 L Specimen slightly (test code = 379) hemolyzed CHLORIDE (BEAKER) 116 meq/L 98-107 H (test code = 382) CO2 (BEAKER) (test 21 meq/L 22-29 L code = 355) BLOOD UREA NITROGEN 29 mg/dL 7-21 H (BEAKER) (test code = 354) CREATININE (BEAKER) 0.73 mg/dL 0.57-1.25 Specimen slightly (test code = 358) hemolyzed GLUCOSE RANDOM 226 mg/dL 70-105 H (BEAKER) (test code = 652) CALCIUM (BEAKER) 8.0 mg/dL 8.4-10.2 L (test code = 697) EGFR (BEAKER) (test 81 mL/min/1.73 ESTIMA NATHALIE GFR IS code = 1092) sq m NOT ACCURATE CREATININE CLEARANCE IN PREDICTING GLOMERULAR FILTRATION RATE . ESTIMATED GFR I S NOT APPLICABLE FOR DIALYSIS PATIEN TS. HEPATIC FUNCTION [id number] 04:33:00 Test Item Value Reference Range Interpretation Comments TOTAL PROTEIN (BEAKER) 5.2 gm/dL 6.0-8.3 L Speci men slightly (test code = 770) hemolyzed ALBUMIN (BEAKER) (test 3.0 g/dL 3.5-5.0 L Speci men slightly code = 1145) hemolyzed BILIRUBIN TOTAL 1.4 mg/dL 0.2-1.2 H Specimen sli ghtly (BEAKER) (test code = hemoly zed 377) BILIRUBIN DIRECT 0.5 mg/dL 0.1-0.5 Specimen sl ightly (BEAKER) (test code = hemoly zed 706) ALKALINE PHOSPHATASE 55 U/L 40-150 (BEAKER) (test code = 346) AST (SGOT) (BEAKER) 282 U/L 5-34 H Specimen slightly (test code = 353) hemolyzed ALT (SGPT) (BEAKER) 443 U/L 6-55 H Specimen slightly (test code = 347) hemolyzed CBC W/PLT COUNT & AUTO [id number] 04:30:00 Test Item Value Reference Range Interpretation Comments WHITE BLOOD CELL COUNT (BEAKER) 12.3 K/ L 3.5-10.5 H (test code = 775) RED BLOOD CELL COUNT (BEAKER) 2.78 M/ L 3.93-5.22 L (test code = 761) HEMOGLOBIN (BEAKER) (test code = 8.7 GM/DL 11.2-15.7 L 410) HEMATOCRIT (BEAKER) (test code = 27.3 % 34.1-44.9 L 411) MEAN CORPUSCULAR VOLUME (BEAKER) 98.2 fL 79.4-94.8 H (test code = 753) MEAN CORPUSCULAR HEMOGLOBIN 31.3 pg 25.6-32.2 (BEAKER) (test code = 751) MEAN CORPUSCULAR HEMOGLOBIN CONC 31.9 GM/DL 32.2-35.5 L (BEAKER) (test code = 752) RED CELL DISTRIBUTION WIDTH 22.3 % 11.7-14.4 H (BEAKER) (test code = 412) PLATELET COUNT (BEAKER) (test 112 K/CU MM 150-450 L code = 756) MEAN PLATELET VOLUME (BEAKER) 11.9 fL 9.4-12.3 (test code = 754) NUCLEATED RED BLOOD CELLS 2 /100 WBC 0-0 H (BEAKER) (test code = 413) NEUTROPHILS RELATIVE PERCENT 61 % (BEAKER) (test code = 429) LYMPHOCYTES RELATIVE PERCENT 24 % (BEAKER) (test code = 430) MONOCYTES RELATIVE PERCENT 12 % (BEAKER) (test code = 431) EOSINOPHILS RELATIVE PERCENT 2 % (BEAKER) (test code = 432) BASOPHILS RELATIVE PERCENT 1 % (BEAKER) (test code = 437) NEUTROPHILS ABSOLUTE COUNT 7.52 K/ L 1.56-6.13 H (BEAKER) (test code = 670) LYMPHOCYTES ABSOLUTE COUNT 2.97 K/ L 1.18-3.74 (BEAKER) (test code = 414) MONOCYTES ABSOLUTE COUNT (BEAKER) 1.44 K/ L 0.24-0.36 H (test code = 415) EOSINOPHILS ABSOLUTE COUNT 0.20 K/ L 0.04-0.36 (BEAKER) (test code = 416) BASOPHILS ABSOLUTE COUNT (BEAKER) 0.06 K/ L 0.01-0.08 (test code = 417) IMMATURE GRANULOCYTES-RELATIVE 1 % 0-1 PERCENT ([facility]) (test code = 2801) [id number] 04:29:00 Test Item Value Reference Range Interpretation Comments PROTIME (BEAKER) (test code = 16.8 seconds 11.9-14.2 H 759) INR ([facility]) (test code = 370) 1.4 <=5.9 PARTIAL THROMBOPLASTIN TIME 27.0 seconds 22.5-36.0 (BEAKER) (test code = 760) Effective 10/24/2018: PT Reference Range ChangeNew: 11.9-14.2 Previous: 11.7- 14.7RECOMMENDED COUMADIN/WARFARIN INR THERAPY RANGESSTANDARD DOSE: 2.0-3.0 Includes: PROPHYLAXIS for venous thrombosis, systemic embolization; TREATMENT for venous thrombosis and/or pulmonary embolus.HIGH RISK: Target INR is 2.5-3.5 for patients wiht mechanical heart valves.[id number] 04:29:00 Test Item Value Reference Range Interpretation Comments FIBRINOGEN LEVEL ([facility]) (test 218 mg/dl 225-434 L code = 658) POCT-GLUCOSE [id number] 00:18:00 Test Item Value Reference Range Interpretation Comments POC-GLUCOSE METER 153 mg/dL 70-110 H TESTED AT [place] [address] ([facility]) (test code = [facility] 1538) [id number] HEMOGLOBIN AND [id number] 00:17:00 Test Item Value Reference Range Interpretation Comments HEMOGLOBIN (BEAKER) (test code = 9.1 GM/DL 11.2-15.7 L 410) HEMATOCRIT ([facility]) (test code = 27.7 % 34.1-44.9 L 411) POCT-GLUCOSE [id number] 18:00:00 Test Item Value Reference Range Interpretation Comments POC-GLUCOSE METER 177 mg/dL 70-110 H TESTED AT [place] [address] ([facility]) (test code = [facility] 1538) [id number] BASIC METABOLIC [id number] 13:48:00 Test Item Value Reference Range Interpretation Comments SODIUM (AKER) 148 meq/L 136-145 H (test code = 381) POTASSIUM (BEAKER) 3.4 meq/L 3.5-5.1 L (test code = 379) CHLORIDE (BEAKER) 119 meq/L 98-107 H (test code = 382) CO2 (BEAKER) (test 25 meq/L 22-29 code = 355) BLOOD UREA NITROGEN 36 mg/dL 7-21 H (BEAKER) (test code = 354) CREATININE (BEAKER) 0.73 mg/dL 0.57-1.25 (test code = 358) GLUCOSE RANDOM 165 mg/dL 70-105 H (BEAKER) (test code = 652) CALCIUM (BEAKER) 7.8 mg/dL 8.4-10.2 L (test code = 697) EGFR (BEAKER) (test 81 mL/min/1.73 ESTIMA NATHALIE GFR IS code = 1092) sq m NOT ACCURATE CREATININE CLEARANCE IN PREDICTING GLOMERULAR FILTRATION RATE . ESTIMATED GFR I S NOT APPLICABLE FOR DIALYSIS PATIEN TS. [id number] 13:45:00 Test Item Value Reference Range Interpretation Comments PHOSPHORUS (BEAKER) (test code = 2.1 mg/dL 2.3-4.7 L 604) HEMOGLOBIN AND [id number] 13:30:00 Test Item Value Reference Range Interpretation Comments HEMOGLOBIN (BEAKER) (test code = 6.9 GM/DL 11.2-15.7 L 410) HEMATOCRIT (BEAKER) (test code = 21.5 % 34.1-44.9 L 411) POCT-GLUCOSE [id number] 12:17:00 Test Item Value Reference Range Interpretation Comments POC-GLUCOSE METER 179 mg/dL 70-110 H TESTED AT [facility] [address] (BEAKER) (test code = [place] 1538) [id number] CBC W/PLT COUNT & AUTO [id number] 10:50:00 Test Item Value Reference Range Interpretation Comments WHITE BLOOD CELL COUNT (BEAKER) 14.7 K/ L 3.5-10.5 H (test code = 775) RED BLOOD CELL COUNT (BEAKER) 2.30 M/ L 3.93-5.22 L (test code = 761) HEMOGLOBIN (BEAKER) (test code = 7.4 GM/DL 11.2-15.7 L 410) HEMATOCRIT (BEAKER) (test code = 22.5 % 34.1-44.9 L 411) MEAN CORPUSCULAR VOLUME (BEAKER) 97.8 fL 79.4-94.8 H (test code = 753) MEAN CORPUSCULAR HEMOGLOBIN 32.2 pg 25.6-32.2 (BEAKER) (test code = 751) MEAN CORPUSCULAR HEMOGLOBIN CONC 32.9 GM/DL 32.2-35.5 (BEAKER) (test code = 752) RED CELL DISTRIBUTION WIDTH 22.2 % 11.7-14.4 H (BEAKER) (test code = 412) PLATELET COUNT (BEAKER) (test 120 K/CU MM 150-450 L code = 756) MEAN PLATELET VOLUME (BEAKER) 11.9 fL 9.4-12.3 (test code = 754) NUCLEATED RED BLOOD CELLS 2 /100 WBC 0-0 H (BEAKER) (test code = 413) (CELLAVISION MANUAL DIFF)2018-12-05 10:50:00 Test Item Value Reference Range Interpretation Comments NEUTROPHILS - REL 77 % (CELLAVISION)(BEAKER) (test code = 2816) LYMPHOCYTES - REL 15 % (CELLAVISION)(BEAKER) (test code = 2817) MONOCYTES - REL 8 % (CELLAVISION)(BEAKER) (test code = 2818) BANDS - REL (CELLAVISION)(BEAKER) 1 % 0-10 (test code = 2826) NEUTROPHILS - ABS 11.32 K/ul 1.56-6.13 H (CELLAVISION)(BEAKER) (test code = 2830) LYMPHOCYTES - ABS 2.21 K/ul 1.18-3.74 (CELLAVISION)(BEAKER) (test code = 2831) MONOCYTES - ABS 1.18 K/uL 0.24-0.36 H (CELLAVISION)(BEAKER) (test code = 2832) BANDS - ABS (CELLAVISION)(BEAKER) 0.15 K/uL 0.00-0.80 (test code = 2840) TOTAL COUNTED (BEAKER) (test code 100 = 1351) MANUAL NRBC PER 100 CELLS (BEAKER) 3 /100 WBC 0-0 H (test code = 1353) WBC MORPHOLOGY (BEAKER) (test code Normal = 487) PLT MORPHOLOGY (BEAKER) (test code Normal = 486) POLYCHROMATOPHILLIC RBCS(BEAKER) 1+ few (test code = 478) MICROCYTES (BEAKER) (test code = 1+ few 965) MACROCYTES (BEAKER) (test code = 1+ few 964) OVALOCYTES (BEAKER) (test code = 1+ few 477) ARTIFACT (CELLAVISION)(BEAKER) Present (test code = 3432) PLATELET CONCENTRATION Decreased (CELLAVISION)(BEAKER) (test code = 3438) Received comment: User comments: Slide comments:POCT-GLUCOSE [id number] 06:14:00 Test Item Value Reference Range Interpretation Comments POC-GLUCOSE METER 173 mg/dL 70-110 H TESTED AT [facility] [address] (BEAKER) (test code = [place] 1538) [id number] U/S, ABDOMINAL, WITH [id number] 05:32:00Reason for exam:->evaluate portal vein, evaluate biliary [...] identified. Pancreas: Head and uncinate process: Not well-seen secondary to poor acoustic windowing.. Body and tail: Not well-seen. Spleen: Size: 10.1cm. Echogenicity: Unremarkable. Right kidney: Size: And 0.3 x 4.5 x 5.2 cm. Parenchyma: Normal echogenicity. No cysts. No stones. Hydronephrosis: None. Left kidney: Size: 10.4 x 5.0 x 5.0 cm. Parenchyma: Normal echogenicity. No cysts. No stones. Hydronephrosis: None. Ascites: Small volume intra-abdominal [...] not identified on this examination. Signed: Howard Fernándezeport Verified Date/Time: 12/05/2018 05:32:17 C METABOLIC [id number] 04:35:00 Test Item Value Reference Range Interpretation Comments SODIUM (BEAKER) 150 meq/L 136-145 H (test code = 381) POTASSIUM (BEAKER) 3.6 meq/L 3.5-5.1 (test code = 379) CHLORIDE (BEAKER) 121 meq/L 98-107 H (test code = 382) CO2 (BEAKER) (test 20 meq/L 22-29 L code = 355) BLOOD UREA NITROGEN 38 mg/dL 7-21 H (BEAKER) (test code = 354) CREATININE (BEAKER) 0.73 mg/dL 0.57-1.25 (test code = 358) GLUCOSE RANDOM 162 mg/dL 70-105 H (BEAKER) (test code = 652) CALCIUM (BEAKER) 8.2 mg/dL 8.4-10.2 L (test code = 697) EGFR (BEAKER) (test 81 mL/min/1.73 ESTIMA NATHALIE GFR IS code = 1092) sq m NOT ACCURATE CREATININE CLEARANCE IN PREDICTING GLOMERULAR FILTRATION RATE . ESTIMATED GFR I S NOT APPLICABLE FOR DIALYSIS PATIEN TS. [id number] 04:34:00 Test Item Value Reference Range Interpretation Comments PHOSPHORUS (BEAKER) (test code = 2.0 mg/dL 2.3-4.7 L 604) [id number] 04:34:00 Test Item Value Reference Range Interpretation Comments MAGNESIUM (BEAKER) (test code = 2.1 mg/dL 1.6-2.6 627) HEPATIC FUNCTION [id number] 04:34:00 Test Item Value Reference Range Interpretation Comments TOTAL PROTEIN (BEAKER) (test code = 4.9 gm/dL 6.0-8.3 L 770) ALBUMIN (BEAKER) (test code = 1145) 3.0 g/dL 3.5-5.0 L BILIRUBIN TOTAL (BEAKER) (test code 0.9 mg/dL 0.2-1.2 = 377) BILIRUBIN DIRECT (BEAKER) (test 0.5 mg/dL 0.1-0.5 code = 706) ALKALINE PHOSPHATASE (BEAKER) (test 50 U/L 40-150 code = 346) AST (SGOT) (BEAKER) (test code = 505 U/L 5-34 H 353) ALT (SGPT) (BEAKER) (test code = 549 U/L 6-55 H 347) [id number] 04:15:00 Test Item Value Reference Range Interpretation Comments AMMONIA (BEAKER) (test code = 348) 97 mol/L 18-72 H LACTIC ACID, [id number] 04:10:00 Test Item Value Reference Range Interpretation Comments LACTATE BLOOD VENOUS (2) (BEAKER) 2.6 mmol/L 0.5-2.2 H (test code = 2872) [id number] 03:54:00 Test Item Value Reference Range Interpretation Comments PROTIME (BEAKER) (test code = 19.2 seconds 11.9-14.2 H 759) INR (BEAKER) (test code = 370) 1.7 <=5.9 PARTIAL THROMBOPLASTIN TIME 31.6 seconds 22.5-36.0 (BEAKER) (test code = 760) Effective 10/24/2018: PT Reference Range ChangeNew: 11.9-14.2 Previous: 11.7- 14.7RECOMMENDED COUMADIN/WARFARIN INR THERAPY RANGESSTANDARD DOSE: 2.0-3.0 Includes: PROPHYLAXIS for venous thrombosis, systemic embolization; TREATMENT for venous thrombosis and/or pulmonary embolus.HIGH RISK: Target INR is 2.5-3.5 for patients wiht mechanical heart valves.[id number] 03:54:00 Test Item Value Reference Range Interpretation Comments FIBRINOGEN LEVEL (BEAKER) (test 188 mg/dl 225-434 L code = 658) POCT-GLUCOSE [id number] 00:17:00 Test Item Value Reference Range Interpretation Comments POC-GLUCOSE METER 185 mg/dL 70-110 H TESTED AT [facility] 6720 (BEAKER) (test code = [place] 1538) [address] HEMOGLOBIN AND [id number] 21:43:00 Test Item Value Reference Range Interpretation Comments HEMOGLOBIN (BEAKER) (test code = 8.1 GM/DL 11.2-15.7 L 410) HEMATOCRIT (BEAKER) (test code = 24.3 % 34.1-44.9 L 411) [id number] 19:32:00 Test Item Value Reference Range Interpretation Comments FERRITIN (BEAKER) (test code = 2039 ng/mL 5-275 H 361) T4, [id number] 18:58:00 Test Item Value Reference Range Interpretation Comments FREE T4 (BEAKER) (test code = 655) 0.91 ng/dL 0.70-1.48 (CELLAVISION MANUAL DIFF)2018-12-04 18:52:00 Test Item Value Reference Range Interpretation Comments NEUTROPHILS - REL 79 % (CELLAVISION)(BEAKER) (test code = 2816) LYMPHOCYTES - REL 15 % (CELLAVISION)(BEAKER) (test code = 2817) MONOCYTES - REL 4 % (CELLAVISION)(BEAKER) (test code = 2818) BANDS - REL (CELLAVISION)(BEAKER) 1 % 0-10 (test code = 2826) NEUTROPHILS - ABS 14.38 K/ul 1.56-6.13 H (CELLAVISION)(BEAKER) (test code = 2830) LYMPHOCYTES - ABS 2.73 K/ul 1.18-3.74 (CELLAVISION)(BEAKER) (test code = 2831) MONOCYTES - ABS 0.73 K/uL 0.24-0.36 H (CELLAVISION)(BEAKER) (test code = 2832) BANDS - ABS (CELLAVISION)(BEAKER) 0.18 K/uL 0.00-0.80 (test code = 2840) TOTAL COUNTED (BEAKER) (test code 100 = 1351) MANUAL NRBC PER 100 CELLS (BEAKER) 3 /100 WBC 0-0 H (test code = 1353) SMUDGE CELLS (BEAKER) (test code = Present 1371) GIANT PLATELETS (BEAKER) (test Present code = 313) PLASMACYTOID LYMPHS(BEAKER) (test Present code = 1677) POLYCHROMATOPHILLIC RBCS(BEAKER) 1+ few (test code = 478) ANISOCYTOSIS (BEAKER) (test code = 1+ few 961) MACROCYTES (BEAKER) (test code = 1+ few 964) POIKILOCYTES (BEAKER) (test code = 1+ few 966) OVALOCYTES (BEAKER) (test code = 1+ few 477) ARTIFACT (CELLAVISION)(BEAKER) Present (test code = 3432) HELMET CELLS (CELLAVISION)(BEAKER) 1+ few (test code = 3434) PLATELET CONCENTRATION Adequate (CELLAVISION)(BEAKER) (test code = 3438) Received comment: User comments: Slide comments:[id number] 18:41:00 Test Item Value Reference Range Interpretation Comments PROCALCITONIN (BEAKER) (test code 0.20 ng/mL <0.05 H = 3036) SEPSIS RISK (ng/mL)Low: 0.05-0.50Intermediate: 0.51-2.00High: >=2.01HEPATITIS A ANTIBODY, [id number] 18:27:00 Test Item Value Reference Range Interpretation Comments HEPATITIS A IGG ANTIBODY (BEAKER) Reactive Nonreactive A (test code = 2797) HEPATITIS B SURFACE [id number] 18:26:00 Test Item Value Reference Range Interpretation Comments HEPATITIS B SURFACE ANTIBODY < mIU/mL <8.0 (BEAKER) (test code = 647) TSH/FREE T4 IF [id number] 18:26:00 Test Item Value Reference Range Interpretation Comments THYROID STIMULATING HORMONE 0.08 uIU/mL 0.35-4.94 L (BEAKER) (test code = 772) ALPHA FETOPROTEIN (AFP), TUMOR [id number] 18:26:00 Test Item Value Reference Range Interpretation Comments ALPHA-FETOPROTEIN (BEAKER) (test 2.2 ng/mL <10.0 code = 1094) HEPATITIS A ANTIBODY, [id number] 18:26:00 Test Item Value Reference Range Interpretation Comments HEPATITIS A IGM ANTIBODY (BEAKER) Nonreactive Nonreactive (test code = 498) HEPATITIS B CORE ANTIBODY, [id number] 18:26:00 Test Item Value Reference Range Interpretation Comments HEPATITIS B CORE TOTAL ANTIBODY Nonreactive Nonreactive (BEAKER) (test code = 497) HEPATITIS B SURFACE [id number] 18:23:00 Test Item Value Reference Range Interpretation Comments HEPATITIS B SURFACE ANTIGEN (2) Nonreactive Nonreactive (BEAKER) (test code = 2585) HEPATITIS C [id number] 18:23:00 Test Item Value Reference Range Interpretation Comments HEPATITIS C ANTIBODY (BEAKER) Nonreactive Nonreactive (test code = 367) RAD, CHEST, 1 VIEW, NON [id number] 18:18:00Reason for exam:->hypoxemiaIs the patient ?->NoShould this be performed at the bedside?->Yes FINAL REPORT EXAM: Chest one view CLINICAL HISTORY: Hypoxemia FINDINGS: Patchy airway opacities are noted in both lungs which may represent edema versus pneumonitis. There is no evidence of pleural effusion or pneumothorax. The cardiac size is within normal limits. The regional osseous structures are Signed: Mario Palacios MDReport Verified Date/Time: 12/04/2018 18:18:54 ReadingLocation: [facility] B1 C013W Consult Reading Room CBC W/PLT COUNT & AUTO [id number] 18:17:00 Test Item Value Reference Range Interpretation Comments WHITE BLOOD CELL COUNT (BEAKER) 18.2 K/ L 3.5-10.5 H (test code = 775) RED BLOOD CELL COUNT (BEAKER) 2.70 M/ L 3.93-5.22 L (test code = 761) HEMOGLOBIN (BEAKER) (test code = 8.5 GM/DL 11.2-15.7 L 410) HEMATOCRIT (BEAKER) (test code = 26.1 % 34.1-44.9 L 411) MEAN CORPUSCULAR VOLUME (BEAKER) 96.7 fL 79.4-94.8 H (test code = 753) MEAN CORPUSCULAR HEMOGLOBIN 31.5 pg 25.6-32.2 (BEAKER) (test code = 751) MEAN CORPUSCULAR HEMOGLOBIN CONC 32.6 GM/DL 32.2-35.5 (BEAKER) (test code = 752) RED CELL DISTRIBUTION WIDTH 22.2 % 11.7-14.4 H (BEAKER) (test code = 412) PLATELET COUNT (BEAKER) (test 158 K/CU MM 150-450 code = 756) MEAN PLATELET VOLUME (BEAKER) 11.4 fL 9.4-12.3 (test code = 754) NUCLEATED RED BLOOD CELLS 1 /100 WBC 0-0 H (BEAKER) (test code = 413) NEUTROPHILS RELATIVE PERCENT 71 % (BEAKER) (test code = 429) LYMPHOCYTES RELATIVE PERCENT 18 % (BEAKER) (test code = 430) MONOCYTES RELATIVE PERCENT 10 % (BEAKER) (test code = 431) EOSINOPHILS RELATIVE PERCENT 0 % (BEAKER) (test code = 432) BASOPHILS RELATIVE PERCENT 0 % (BEAKER) (test code = 437) NEUTROPHILS ABSOLUTE COUNT 12.85 K/ L 1.56-6.13 H (BEAKER) (test code = 670) LYMPHOCYTES ABSOLUTE COUNT 3.35 K/ L 1.18-3.74 (BEAKER) (test code = 414) MONOCYTES ABSOLUTE COUNT (BEAKER) 1.74 K/ L 0.24-0.36 H (test code = 415) EOSINOPHILS ABSOLUTE COUNT 0.01 K/ L 0.04-0.36 L (BEAKER) (test code = 416) BASOPHILS ABSOLUTE COUNT (BEAKER) 0.08 K/ L 0.01-0.08 (test code = 417) IMMATURE GRANULOCYTES-RELATIVE 1 % 0-1 PERCENT (BEAKER) (test code = 2801) B-TYPE NATRIURETIC FACTOR (BNP)2018-12-04 18:10:00 Test Item Value Reference Range Interpretation Comments B-TYPE NATRIURETIC PEPTIDE (BEAKER) 155 pg/mL 0-100 H (test code = 700) COMPREHENSIVE METABOLIC [id number] 18:08:00 Test Item Value Reference Range Interpretation Comments TOTAL PROTEIN 5.5 gm/dL 6.0-8.3 L (BEAKER) (test code = 770) ALBUMIN (BEAKER) 3.3 g/dL 3.5-5.0 L (test code = 1145) ALKALINE PHOSPHATASE 55 U/L 40-150 (BEAKER) (test code = 346) BILIRUBIN TOTAL 1.1 mg/dL 0.2-1.2 (BEAKER) (test code = 377) SODIUM (BEAKER) (test 150 meq/L 136-145 H code = 381) POTASSIUM (BEAKER) 3.5 meq/L 3.5-5.1 (test code = 379) CHLORIDE (BEAKER) 122 meq/L 98-107 H (test code = 382) CO2 (BEAKER) (test 18 meq/L 22-29 L code = 355) BLOOD UREA NITROGEN 38 mg/dL 7-21 H (BEAKER) (test code = 354) CREATININE (BEAKER) 0.78 mg/dL 0.57-1.25 (test code = 358) GLUCOSE RANDOM 168 mg/dL 70-105 H (BEAKER) (test code = 652) CALCIUM (BEAKER) 8.5 mg/dL 8.4-10.2 (test code = 697) AST (SGOT) (BEAKER) 825 U/L 5-34 H (test code = 353) ALT (SGPT) (BEAKER) 712 U/L 6-55 H (test code = 347) EGFR (BEAKER) (test 75 mL/min/1.73 ESTIMA NATHALIE GFR IS code = 1092) sq m NOT ACCURATE CREATININE CLEARANCE IN PREDICTING GLOMERULAR FILTRATION RATE . ESTIMATED GFR I S NOT APPLICABLE FOR DIALYSIS PATIEN TS. [id number] 18:07:00 Test Item Value Reference Range Interpretation Comments PHOSPHORUS (BEAKER) (test code = 2.2 mg/dL 2.3-4.7 L 604) [id number] 18:07:00 Test Item Value Reference Range Interpretation Comments MAGNESIUM (BEAKER) (test code = 2.0 mg/dL 1.6-2.6 627) CHLORIDE, RANDOM [id number] 18:03:00 Test Item Value Reference Range Interpretation Comments CHLORIDE URINE (BEAKER) (test code = 58 meq/L 682) Reference Range: No NormalsCREATININE, RANDOM [id number] 18:03:00 Test Item Value Reference Range Interpretation Comments CREATININE URINE (BEAKER) (test 90.3 mg/dL code = 375) Reference Range: No NormalsPROTEIN, RANDOM [id number] 18:03:00 Test Item Value Reference Range Interpretation Comments PROTEIN, URINE (BEAKER) (test code = 17 mg/dL 0-14 H 1569) SODIUM, RANDOM [id number] 18:03:00 Test Item Value Reference Range Interpretation Comments SODIUM URINE (BEAKER) (test code = < meq/L 243) Reference Range: No [id number] 18:02:00 Test Item Value Reference Range Interpretation Comments ALPHA-1 ANTITRYPSIN (BEAKER) 156.80 mg/dL 90.00-200.00 (test code = 502) IRON, TIBC, % SAT. (WITHOUT FERRITIN)2018-12-04 18:02:00 Test Item Value Reference Range Interpretation Comments IRON (BEAKER) (test code = 547) 140.0 ug/dL 40.0-160.0 TOTAL IRON BINDING CAPACITY 258 ug/dL 250-450 (BEAKER) (test code = 769) IRON % SATURATION (2) (BEAKER) 54 % 20-55 (test code = 2590) RAD, ABDOMEN/KUB, 1 VIEW [id number] 18:00:00Reason for exam:->abdominal distentionShould this be performed at the bedside?->YesFINAL REPORT EXAM: KUB CLINICAL HISTORY: Abdominal distention FINDINGS: Moderate to severely dilated air-filled small bowel loops are noted throughout the abdomen with small amountof bowel gas in the rectum. This may represent generalized ileus versus distal obstruction. The reservoir of the spinal infusion pump is noted in the right lower quadrant. There is no evidence of pneumoperitoneum. The regional osseous structures are unremarkable. Signed: Mario Palacios MDReport Verified Date/Time: 12/04/2018 18:00:28 Reading Location: [facility] B1 C013W Consult Reading Room Electronicallysigned by: MARIO PALACIOS M.D. on 12/04/2018 06:00 PMLACTIC ACID, [id number] 17:59:00 Test Item Value Reference Range Interpretation Comments LACTATE BLOOD VENOUS 5.4 mmol/L 0.5-2.2 H Specime n slightly (2) (BEAKER) (test hemolyzed code = 2872) URINALYSIS W/ REFLEX URINE [id number] 17:57:00 Test Item Value Reference Range Interpretation Comments COLOR (BEAKER) (test code = 470) Yellow CLARITY (BEAKER) (test code = 469) Clear SPECIFIC GRAVITY UA (BEAKER) (test 1.022 1.001-1.035 code = 468) PH UA (BEAKER) (test code = 467) 6.0 5.0-8.0 PROTEIN UA (BEAKER) (test code = 10 mg/dL Negative A 464) GLUCOSE UA (BEAKER) (test code = Negative Negative 365) KETONES UA (BEAKER) (test code = Negative Negative 371) BILIRUBIN UA (BEAKER) (test code = Negative Negative 462) BLOOD UA (BEAKER) (test code = 461) Moderate Negative A NITRITE UA (BEAKER) (test code = Negative Negative 465) LEUKOCYTE ESTERASE UA (BEAKER) Small Negative A (test code = 466) UROBILINOGEN UA (BEAKER) (test code 0.2 mg/dL 0.2-1.0 = 463) RBC UA (BEAKER) (test code = 519) 23 /HPF WBC UA (BEAKER) (test code = 520) 16 /HPF MUCUS (BEAKER) (test code = 1574) Rare SOURCE(BEAKER) (test code = 2795) [id number] 17:57:00 Test Item Value Reference Range Interpretation Comments PROTIME (BEAKER) (test code = 19.5 seconds 11.9-14.2 H 759) INR (BEAKER) (test code = 370) 1.7 <=5.9 PARTIAL THROMBOPLASTIN TIME 29.0 seconds 22.5-36.0 (BEAKER) (test code = 760) Effective 10/24/2018: PT Reference Range ChangeNew: 11.9-14.2 Previous: 11.7- 14.7RECOMMENDED COUMADIN/WARFARIN INR THERAPY RANGESSTANDARD DOSE: 2.0-3.0 Includes: PROPHYLAXIS for venous thrombosis, systemic embolization; TREATMENT for venous thrombosis and/or pulmonary embolus.HIGH RISK: Target INR is 2.5-3.5 for patients wiht mechanical heart valves.[id number] 17:57:00 Test Item Value Reference Range Interpretation Comments FIBRINOGEN LEVEL (BEAKER) (test 224 mg/dl 225-434 L code = 658) BLOOD GAS, [id number] 17:46:00 Test Item Value Reference Range Interpretation Comments PH ARTERIAL (BEAKER) (test code = 7.46 7.35-7.45 H 383) PCO2 ARTERIAL (BEAKER) (test code 27 mmHg 35-45 L = 384) PO2 ARTERIAL (BEAKER) (test code 83 mmHg 80-90 = 385) O2 SATURATION ARTERIAL (BEAKER) 97.0 % 96.0-97.0 (test code = 386) HCO3 ARTERIAL (BEAKER) (test code 19 mmol/L 21-29 L = 388) BASE EXCESS ARTERIAL (BEAKER) -4.3 mmol/L -2.0-3.0 L (test code = 387) PATIENT TEMPERATURE (BEAKER) 36.7 C (test code = 1818) FIO2 (BEAKER) (test code = 1819) 40.0 %
[2022-05-27 12:41] LABS: Urine Blood 2+ (Negative); Urine Glucose Negative (Negative); Urine Protein Negative (Negative); Urine pH 6.5 (5.0-7.0)
[2022-05-27 13:06] LABS: Absolute Lymphocytes (CBC) 1.3 K/uL (0.7-4.9); Hematocrit 41.8 % (36.0-45.0); Lymphocytes % 29.3 % (15.3-44.8); MCV 95.3 fL (80-100); MPV 9.1 fL (7.6-11.3); RBC Red Blood Cell Count 4.39 M/uL (3.86-4.86)
[2022-05-27 13:10] LABS: Protime INR 1.05
[2022-05-27 13:25] LABS: Albumin 3.3 g/dL (3.4-5.0); Bilirubin Direct 0.2 mg/dL (0-0.2); Bilirubin Total 0.9 mg/dL (0.2-1.0); Potassium 4.3 mmol/L (3.5-5.1); Protein, Total 8.2 g/dL (6.4-8.2); Troponin High Sensitivity 53.1 pg/mL (<58.9)
[2022-05-27 13:44] LABS: SARS-COV-2 RT PCR NEGATIVE (NEGATIVE)
[2022-05-27] MEDS ORDERED: ONDANSETRON 4 MG/2 ML VIAL ONE (14:54)
--- NOTE | 2022-05-27 15:04 | RAD REPORT ---
EXAM DESCRIPTION: CT - Chest For Pe Angio - 05/27/2022 2:37 pm CLINICAL HISTORY: Chest pain COMPARISON: 2019 TECHNIQUE: Dynamically enhanced axial 3 mm thick images of the chest were obtained during administra tion of <100> mL Isovue 370 IV contrast. Coronal and oblique reconstruction images were generated and reviewed. Exam utilizes a protocol for optimal evaluation of pulmonary arterial tree. Maximum intensity projections 3D imaging was utilized All CT scans are performed using dose optimization technique as appropriate and may include automated exposure control or mA/KV adjustment according to patient size. FINDINGS: A pulmonary embolus is not seen. A thoracic aortic aneurysm is not noted. A pleural effusion is not seen. A pericardial effusion is not seen. Mild bilateral ground-glass opacities within the lungs IMPRESSION: Negative for a pulmonary embolism. Mild bilateral ground-glass opacities within the lungs indicative of an alveolitis
--- NOTE | 2022-05-27 15:26 | RAD REPORT ---
EXAM DESCRIPTION: Favio Single View05/27/2022 3:18 pm CLINICAL HISTORY: Chest pain COMPARISON: 2019 FINDINGS: Mild bilateral pulmonary opacities. The heart is normal size IMPRESSION: Mild bilateral pulmonary opacities may represent pneumonitis or pneumonia
--- NOTE | 2022-05-27 16:12 | ER ---
Nurse's Notes [facility] Name: Kaitlyn Sesay Age: 62 yrs Sex: Female : 1960 Arrival Date: 05/27/2022 Time: 11:24 Bed 15 Private MD: Aren Garduno Diagnosis: Pneumonia, unspecified organism Presentation: 05/27 12:08 Chief complaint: Patient states: SOB and chest pain since yesterday. Coronavirus iw screen: At this time, the client does not indicate any symptoms associated with coronavirus-19. Ebola Screen: Patient negative for fever greater than or equal to 101.5 degrees Fahrenheit, and additional compatible Ebola Virus Disease symptoms Patient denies exposure to infectious person. Patient denies travel to an Ebola-affected area in the 21 days before illness onset. No symptoms or risks identified at this time. Initial Sepsis Screen: Does the patient meet any 2 criteria? No. Patient's initial sepsis screen is negative. Does the patient have a suspected source of infection? No. Patient's initial sepsis screen is negative. Risk Assessment: Do you want to hurt yourself or someone else? Patient reports no desire to harm self or others. Onset of symptoms was May 26, 2022. 12:08 Method Of Arrival: Ambulatory iw 12:08 Acuity: VIKRAM 3 iw Historical: - Allergies: 12:19 Azithromycin; iw 12:19 Cephalexin; iw 12:19 PENICILLINS; iw 12:19 Rocephin; iw 12:19 Rofecoxib; iw 12:19 Sulfa (Sulfonamide Antibiotics); iw - Home Meds: 12:19 montelukast 10 mg oral tab 1 tab once daily [Active]; cetirizine 10 mg oral tab 1 tab iw once daily [Active]; levothyroxine 125 mcg tab 1 tab once daily [Active]; carvedilol 25 mg oral tab 1 tab 2 times per day [Active]; amitriptyline 50 mg Oral tab 1 tab once daily [Active]; - PMHx: 12:19 Chronic pain; GI Bleed; liver failure; Thyroid problem; iw - Immunization history:: Adult Immunizations up to date, Client reports receiving the 2nd dose of the Covid vaccine, Last tetanus immunization: unknown. - Family history:: not pertinent. - Social history:: Smoking status: Patient denies any tobacco usage or history of. - Hospitalizations: : No recent hospitalization is reported. Screenin:06 [facility] ED Fall Risk Assessment (Adult) History of falling in the last 3 months, kb3 including since admission No falls in past 3 months (0 pts) Confusion or Disorientation No (0 pts) Intoxicated or Sedated No (0 pts) Impaired Gait No (0 pts) Mobility Assist Device Used No (0 pt) Altered Elimination No (0 pt) Score/Fall Risk Level 0 - 2 = Low Risk Oriented to surroundings, Maintained a safe environment, Educated pt \T\ family on fall prevention, incl call for assistance when getting out of bed, Assessed \T\ reinforced patient's understanding of fall precautions, Provided non-skid footwear, Hourly rounding (assess needs \T\ fall precautionary measures) done, Used ambulatory aids as needed (educated on \T\ assisted with), Used gait belt as appropriate. Abuse screen: Denies threats or abuse. Denies injuries from another. Nutritional screening: No deficits noted. Tuberculosis screening: No symptoms or risk factors identified. Assessment: 14:06 General: Appears in no apparent distress. Behavior is calm, cooperative, Received care kb3 of pt from chairs, ambulatory with no distress. . 14:06 Pain: Complains of pain in chest Pain does not radiate. Pain currently is 5 out of 10 kb3 on a pain scale. Quality of pain is described as pressure, Pain began 2-3 days ago. 14:06 Cardiovascular: Reports chest pain, Heart tones present Rhythm is sinus rhythm. kb3 Respiratory: Reports shortness of breath on exertion Airway is patent Respiratory effort is even, unlabored, Breath sounds are clear bilaterally. the patient has mild shortness of breath. Vital Signs: 12:08 BP 226 / 89; Pulse 64; Resp 18; Pulse Ox 97% on R/A; iw 12:17 BP 192 / 74; iw 13:52 BP 120 / 75 Supine; Pulse 81; Resp 16; Pulse Ox 99% ; rs5 13:52 BP 122 / 83 Sitting; Pulse 90; Resp 17; Pulse Ox 100% on R/A; rs5 13:52 BP 134 / 116 Standing; Pulse 100; Resp 17; Pulse Ox 99% on R/A; rs5 15:00 BP 161 / 71; Pulse 57; Resp 20; Pulse Ox 97% ; kb3 16:00 BP 152 / 73; Pulse 55; Resp 20; Pulse Ox 98% ; kb3 ED Course: 11:24 Patient arrived in ED. rg4 11:25 Aren Garduno MD is Private Physician. rg4 12:05 Jori Mathis MD is Attending Physician. rn 12:08 Ute Noriega, RN is Primary Nurse. iw 12:09 Triage completed. iw 13:32 Inserted saline lock: 22 gauge in left hand, using aseptic technique. upper arm, using rs5 aseptic technique. Blood collected. 14:06 No provider procedures requiring assistance completed. Patient maintains SpO2 kb3 saturation greater than 95% on room air. 14:06 Patient has correct armband on for positive identification. Bed in low position. Call kb3 light in reach. Side rails up X 1. hand stapler on. Pulse ox on. NIBP on. 14:25 Inserted saline lock: 22 gauge in left forearm, using aseptic technique. Blood mb9 collected. 14:38 CT Chest For PE Angio In Process Unspecified. EDMS 15:05 Theodora Morataya, RN is Primary Nurse. kb3 15:20 XRAY Chest (1 view) In Process Unspecified. EDMS 16:30 IV discontinued, intact, bleeding controlled, No redness/swelling at site. kb3 16:54 Arm band placed on right wrist. kb3 Administered Medications: 14:55 Drug: Zofran (Ondansetron) 4 mg Route: IVP; Site: left forearm; kb3 15:45 Follow up: Response: No adverse reaction; Nausea is decreased kb3 16:14 Drug: LevaQUIN (levofloxacin) 500 mg Route: PO; kb3 Medication: 14:06 VIS not applicable for this client. kb3 Outcome: 16:12 Discharge ordered by . rn 16:30 Discharged to home ambulatory. kb3 16:30 Condition: stable kb3 16:30 Discharge instructions given to patient, Instructed on discharge instructions, follow up and referral plans. medication usage, Demonstrated understanding of instructions, follow-up care, medications, Prescriptions given X 1. 16:56 Patient left the ED. kb3 Signatures: Dispatcher [employer] EDMS Ute Noriega RN RN iw Jori Mathis MD MD rn Garcia, Rubi rg4 Theodora Morataya, SRI RN kb3 Estelita Henson RN RN mb9 Marcus Rico rs5 Corrections: (The following items were deleted from the chart) 12:10 12:08 Resp 18bpm; Pulse Ox 97% RA; iw iw
--- NOTE | 2022-05-27 16:12 | EDPHYS ---
Physician Documentation [facility] Name: Kaitlyn Sesay Age: 62 yrs Sex: Female : 1960 Arrival Date: 05/27/2022 Time: 11:24 Bed 15 Private MD: Aren Garduno ED Physician Jori Mathis HPI: 05/27 14:10 This 62 yrs old Female presents to ER via Ambulatory with complaints of Chest Pain, rn High Blood Pressure, Shortness Of Breath. 14:10 The patient or guardian reports chest pain that is located primarily in the substernal rn area. Onset: 2 day(s) ago. The pain does not radiate. Associated signs and symptoms: Pertinent positives: headache, shortness of breath, Pertinent negatives: abdominal pain, palpitations, syncope, vomiting. The chest pain is described as aching. Duration: The patient or guardian reports multiple episodes, that are intermittent. Modifying factors: The symptoms are alleviated by nothing. the symptoms are aggravated by nothing. Severity of pain: At its worst the pain was mild in the emergency department the pain is unchanged. The patient has experienced similar episodes in the past. The patient has been recently seen by a physician:. Historical: - Allergies: 12:19 Azithromycin; iw 12:19 Cephalexin; iw 12:19 PENICILLINS; iw 12:19 Rocephin; iw 12:19 Rofecoxib; iw 12:19 Sulfa (Sulfonamide Antibiotics); iw - Home Meds: 12:19 montelukast 10 mg oral tab 1 tab once daily [Active]; cetirizine 10 mg oral tab 1 tab iw once daily [Active]; levothyroxine 125 mcg tab 1 tab once daily [Active]; carvedilol 25 mg oral tab 1 tab 2 times per day [Active]; amitriptyline 50 mg Oral tab 1 tab once daily [Active]; - PMHx: 12:19 Chronic pain; GI Bleed; liver failure; Thyroid problem; iw - Immunization history:: Adult Immunizations up to date, Client reports receiving the 2nd dose of the Covid vaccine, Last tetanus immunization: unknown. - Family history:: not pertinent. - Social history:: Smoking status: Patient denies any tobacco usage or history of. - Hospitalizations: : No recent hospitalization is reported. ROS: 14:10 Constitutional: Negative for fever, chills, and weight loss, Eyes: Negative for injury, rn pain, redness, and discharge, Cardiovascular: Negative for palpitations, and edema, Respiratory: Negative for wheezing, and pleuritic chest pain Abdomen/GI: Negative for abdominal pain, nausea, vomiting, diarrhea, and constipation, Back: Negative for injury and pain, MS/Extremity: Negative for injury and deformity, Skin: Negative for injury, rash, and discoloration, Neuro: Negative for numbness, tingling, and seizure. Exam: 14:10 Constitutional: This is a well developed, well nourished patient who is awake, alert, rn and in no acute distress. Head/Face: Normocephalic, atraumatic. Neck: Trachea midline, no masses palpated, and no cervical lymphadenopathy. Supple, full range of motion without nuchal rigidity, or vertebral point tenderness. No Meningismus. Cardiovascular: Regular rate and rhythm. No pulse deficits. Respiratory: No increased work of breathing, no retractions or nasal flaring. Abdomen/GI: Soft, non-tender Skin: Warm, dry with normal turgor. Normal color with no rashes, no lesions, and no evidence of cellulitis. MS/ Extremity: Pulses equal, no cyanosis. Neuro: Awake and alert, GCS 15, oriented to person, place, time, and situation. Cranial nerves II-XII grossly intact. Motor strength 5/5 in all extremities. Sensory grossly intact. Cerebellar exam normal. Normal gait. 16:11 ECG was reviewed by the Attending Physician. rn Vital Signs: 12:08 BP 226 / 89; Pulse 64; Resp 18; Pulse Ox 97% on R/A; iw 12:17 BP 192 / 74; iw 13:52 BP 120 / 75 Supine; Pulse 81; Resp 16; Pulse Ox 99% ; rs5 13:52 BP 122 / 83 Sitting; Pulse 90; Resp 17; Pulse Ox 100% on R/A; rs5 13:52 BP 134 / 116 Standing; Pulse 100; Resp 17; Pulse Ox 99% on R/A; rs5 15:00 BP 161 / 71; Pulse 57; Resp 20; Pulse Ox 97% ; kb3 16:00 BP 152 / 73; Pulse 55; Resp 20; Pulse Ox 98% ; kb3 MDM: 12:05 Patient medically screened. rn 16:10 Differential diagnosis: acute pericarditis, anxiety, chest wall pain, pleurisy, rn pneumonia, pneumothorax, pulmonary embolus, stable angina. HEART Score: History: Slightly Suspicious (0), ECG: Normal (0), Age: > 45 and < 65 years (1), Risk Factors: No Risk Factors Known (0), Troponin: < or = 1 x Normal Limit (0), Total Score = 1. Data reviewed: vital signs, nurses notes, lab test result(s), EKG, radiologic studies, CT scan, plain films, and as a result, I will discharge patient. Counseling: I had a detailed discussion with the patient and/or guardian regarding: the historical points, exam findings, and any diagnostic results supporting the discharge/admit diagnosis, lab results, radiology results, the need for outpatient follow up, to return to the emergency department if symptoms worsen or persist or if there are any questions or concerns that arise at home. Response to treatment: the patient's symptoms have mildly improved after treatment, and as a result, I will discharge patient. Special discussion: I discussed with the patient/guardian in detail that at this point there is no indication for admission to the hospital. It is understood, however, that if the symptoms persist or worsen the patient needs to return immediately for re-evaluation. 05/27 12:17 Order name: Basic Metabolic Panel; Complete Time: 13:58 05/27 12:17 Order name: CBC with Diff; Complete Time: 13:13 05/27 12:17 Order name: LFT's; Complete Time: 13:58 05/27 12:17 Order name: NT PRO-BNP; Complete Time: 13:58 05/27 12:17 Order name: PT-INR; Complete Time: 13:58 rn 05/27 12:17 Order name: Troponin HS; Complete Time: 13:58 05/27 12:17 Order name: XRAY Chest (1 view); Complete Time: 15:41 rn 05/27 12:17 Order name: EKG; Complete Time: 12:18 rn 05/27 12:17 Order name: D-Dimer; Complete Time: 13:58 05/27 12:18 Order name: COVID-19/FLU A+B; Complete Time: 13:58 05/27 12:41 Order name: Urine Dipstick-Ancillary; Complete Time: 13:13 EDMS 05/27 13:14 Order name: CT Chest For PE Angio; Complete Time: 15:41 rn 05/27 12:17 Order name: Cardiac monitoring; Complete Time: 13:52 rn 05/27 12:17 Order name: EKG - Nurse/Tech; Complete Time: 13:52 rn 05/27 12:17 Order name: IV Saline Lock; Complete Time: 13:32 rn 05/27 12:17 Order name: Labs collected and sent; Complete Time: 13:32 rn 05/27 12:17 Order name: O2 Per Protocol; Complete Time: 13:52 rn 05/27 12:17 Order name: O2 Sat Monitoring; Complete Time: 13:52 rn EC:11 Rate is 54 beats/min. Rhythm is regular. QRS [place] is Normal. MD interval is normal. QRS rn interval is normal. QT interval is normal. No Q waves. T waves are Normal. No ST changes noted. Clinical impression: Sinus bradycardia. Interpreted by me. Reviewed by me. Administered Medications: 14:55 Drug: Zofran (Ondansetron) 4 mg Route: IVP; Site: left forearm; kb3 15:45 Follow up: Response: No adverse reaction; Nausea is decreased kb3 16:14 Drug: LevaQUIN (levofloxacin) 500 mg Route: PO; kb3 Disposition Summary: 05/27/22 16:12 Discharge Ordered Location: Home rn Problem: new rn Symptoms: have improved rn Condition: Stable rn Diagnosis - Pneumonia, unspecified organism rn Followup: rn - With: Private Physician - When: As needed - Reason: Recheck today's complaints, Re-evaluation by your physician Discharge Instructions: - Discharge Summary Sheet rn - Community-Acquired Pneumonia, Adult rn Forms: - Medication Reconciliation Form rn - Thank You Letter rn - 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
[2022-05-27] MEDS ORDERED: levoFLOXacin 500 MG TAB ONE (16:15)
[2022-05-27 17:40] VITALS: BP 152/73; O2SAT 98
--- NOTE | 2022-05-31 14:35 | EKG ---
Test Date: 2022-05-27 Test Time: 16:08:55 Director Targeted Marketing: JENY MEASUREMENT RESULTS: Intervals: Rate: 54 FL: 162 QRSD: 86 QT: 466 QTc: 441 [place]: P: 30 FL: 162 QRS: 53 T: 42 INTERPRETIVE STATEMENTS: Sinus bradycardia Otherwise normal ECG Compared to ECG 04/22/2019 17:32:04 Sinus rhythm no longer present Atrial premature complex(es) no longer present Myocardial infarct finding no longer present T-wave abnormality no longer present Possible ischemia no longer present Electronically Signed On 05-31-22 14:32:47 [employer]LL[employer] HAND by Michael Chávez
== END 2022-05-27 16:56 | disposition home or self-care (01) ==
LOC: ER 11:22
DX: J18.9 Pneumonia, unspecified organism (principal); Z20.822 Contact with and (suspected) exposure to COVID-19; E07.9 Disorder of thyroid, unspecified; Z88.0 Allergy status to penicillin; Z88.1 Allergy status to other antibiotic agents; Z88.2 Allergy status to sulfonamides
CPT/HCPCS: 85025; 80048; 36415; 85610; 85379; 80076; 81003; 84484; 83880; 0240U; 71275; 71045; 96374; 99285; Q9967; J2405; 93005

== ENCOUNTER 2022-06-21 10:16 | Emergency (ER) | payer OTHER ==
--- OUTSIDE RECORDS SUMMARY | 2022-06-21 10:24 | XMS REPORT | Continuity of Care Document ---
:1960 Author Organization [facility] t Address [address] [place] [address] Care Team Providers Name Role Phone Aren Garduno MD Primary Care Physician YEISON WHIPPLE Attending Clinician Unavailable Katarzyna Willis RN Attending Clinician Unavailable Eileen Clay MA Attending Clinician Unavailable Jj South MD Attending Clinician Provider , Not In System Attending Clinician Unavailable Provider , Not In System Attending Clinician Unavailable Zoila Pete Attending Clinician Unavailable Yeison Whipple MD Attending Clinician Beau Galan CRNA Attending Clinician Samy Malik MD Attending Clinician [phone] Doctor Unassigned, [place] Attending Clinician Unavailable Only, Adc Test Attending Clinician Unavailable JJ MISTRY Attending Clinician Unavailable YRN PORTILLO Attending Clinician Unavailable YEISON WHIPPLE Admitting Clinician Unavailable Tavares Whyte Admitting Clinician Unavailable Yeison Whipple MD Admitting Clinician JJ MISTRY Admitting Clinician Unavailable YRN PORTILLO Admitting Clinician Unavailable Payers Payer Name Policy Type Policy Number Effective Date Expiration Date Ziyad [place] [facility] [id number] 2007 00:00:00 [place] Problems Condition Condition Condition Status Onset Resolution Last Treating Co mments Source Name Details Category Date Date Treatment Clinician Date Hepatic Hepatic Disease Active [facility] encephal[facility] encephalop 01-21 [facility] athy athy 00:00: Medical 00 [place] 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 hypertensi 01-21 [facility] on on 00:00: Medical 00 [place] Fatty Fatty Disease Active [facility] liver liver 01-21 [facility] 00[facility]: Medical [place] Hypoxia Hypoxia Disease Active [facility] 12[facility]05 [facility] 00:[facility] 00 [place] Hypernatre Hypernatre Disease Active [facility] jonathan jonathan 12-05 [facility] Acute GI Acute GI Disease [facility] bleeding bleeding 12[facility]05 [facility] 00:[facility]: Medical 00 [place] Esophageal Esophageal Disease Active [facility] varices varices 12-05 [facility] 00:00: Medical 00 [place] Cirrhosis, Cirrhosis, Disease Active [facility] nonalcohol nonalcohol 12-04 [facility] ic ic 00:00: Medical 00 Center Acute Acute Disease Active [facility] hepatic hepatic 12-04 [facility] encephalop encephalop 00:00: Me dical athy athy 00 [place] No known No known Disease Unive rs active active ity of problems problems [facility] Allergies, Adverse Reactions, Alerts Allergy Allergy Status Severity Reaction(s) Onset Inactive Treating Comm ents Source Name Type Date Date Clinician Nsaids Propensi Active Rash Methodi (Non-Kiko ty to 06-01 roidal adverse 00:00: Hospita Anti-Inf reaction 00 l lammator s to y Drug) drug Oxycodon Propensi Active GI Migraines Met hodi e ty to Intolerance 06-01 ,nausea st adverse 00:00: Hospita reaction 00 l s to drug Penicill Propensi Active Rash Method i in ty to 06-01 adverse 00:00: Hospita reaction 00 l s to drug Ceftriax Propensi Active Rash Method i one ty to 06-01 adverse 00:00: Hospita reaction 00 l s to drug Azithrom Propensi Active Rash Rash Method i ycin ty to 1-04 st adverse 00:00: Hospita reaction 00 l s to drug Penicill Propensi Active RASH [facility] ty to 12-04 [facility] adverse 00:00: Medical reaction 00 Center s Steroids Propensi Active Other (See Generaliz [facility] ty to Comments) 12-04 ed [facility] adverse 00:00: swelling Medical reaction 00 Center s Steroids Propensi [...] adverse 00:00: Medical reaction 00 Center s Eszopicl Propensi Active Nausea Only, 2018- headach e [facility] one ty to Other (See 12-04 [facility] adverse Comments) 00:00: Medica l reaction 00 Center s Meloxica Propensi Active Swelling [facility] m ty to 12-04 [facility] adverse 00:00: Medical reaction 00 Center s Oxycodon Propensi Active Nausea And 2019- ANYTHING [facility] e ty to Vomiting 12-04 IN THE kes adverse 00:00: OXY Medical reaction 00 FAMILY Center s Penicill Propensi Active RASH [facility] ty to 12-04 [facility] adverse 00:00: Medical reaction 00 Center s Ceftriax Propensi Active Rash 2018- [facility] one ty to 12-04 [facility] [...] Branch drug BEE DRUG Active High Swelling 2015-0 Univers STING / INGREDI 01-02 ity of VENOM 00:00: [place] 00 [facility] Branch ZOLPIDEM DRUG Active Med Other-Cmnt Univ ers TARTRATE INGREDI 01-02 ity of 00:00: [place] 00 Medical Branch CEPHALEX DRUG Active Med Rash [...] NE INGREDI 01-02 ity of 00:00: [place] 00 Medical Branch SULFA Drug Active Med Rash [...] ity of [place] adverse 00:00: [place] reaction 00 Medical s to Branch drug Cephalex Propensi Active Rash Univer s in ty to 01-02 ity of adverse 00:00: [place] reaction 00 Medical s to Branch drug Eszopicl Propensi Active Nausea Headache Univ ers one ty to and/or 01-02 ity of adverse Vomiting 00:00: [place] reaction 00 Medical s to Branch drug Nsaids Propensi Active Swelling 08/10/15 Unive rs (Non-Kiko ty to 01-02 Pt denies ity o f roidal adverse 00:00: allergies [place] Anti-Inf reaction 00 to NSAIDS Med ical lammator s to Branch y Drug) drug Oxycodon Propensi Active Nausea 2015-0 Univer s e ty to and/or 01-02 ity of adverse Vomiting 00:00: [place] reaction 00 Medical s to Branch drug Penicill Propensi Active Rash Univer s ins ty to 01-02 ity of adverse 00:00: [place] reaction 00 Medical s to Branch drug Predniso Propensi Active Swelling Pt states U nivers ne ty to 01-02 she ity of adverse 00:00: swells [place] reaction 00 with Medical s to steroids Branch drug predniso [facility] 11-12 [place] LYMPH NODE 00:00: d SWELLING 00 [facility] Center meloxica DA Active [facility] 11-12 [place] 00:00: d 00 [facility] Center rofecoxi DA Active [facility] b 11-12 [place] 00:00: d 00 Medical [place] ceftriax DA Active [facility] one 11-12 [place] sodium 00:00: d 00 Medical Center Cephalex DA Active [facility] in 11-12 [place] Monohydr 00:00: d ate 00 Medical Center Penicill DA Active [facility] ins 11-12 [place] 00:00: d 00 Medical Center Sulfa DA Active [facility] (Sulfona 11-12 [place] mide 00:00: d Antibiot 00 Medical ics) Center Shellfis DA Active [facility] h 11-12 [place] 00:00: d 00 Medical Center STEROIDS DA Active [facility] SWELLING [facility] 9 [place] 00:00: d 00 Medical Center BEE DA Active [facility] ANAPHYLACTIC [facility] STING 02-01 [place] 00:00: d 00 Medical Center Family History Family Member Diagnosis Comments Start Date Stop Date Source Natural father [facility]m [facility] Natural father Heart disease [facility] Natural father Hypertension [facility] Other Hy[facility] Social History Social Habit Start Date Stop Date Quantity Comments Source Exposure to Not sure [facility] SARS-CoV-2 (event) [place] [facility] History SDOH [facility] Alcohol Std Drinks Medica l Center History SDOH [facility] Alcohol Binge Medical Tian ter History SDOH [facility] Alcohol Comment Medical C enter History of tobacco Cigarette Smoker [facility] Alcohol intake 2022-06-06 2022-06-06 [facility] 00:[facility]:00:00 non-drinker Hospital (finding) Cigarettes smoked 2022-06-01 2022-06-01 [facility] current (pack per 00:00:00 00:00:00 Hospita l day) - Reported Cigarette 2022-06-01 2022-06-01 [facility] pack-years 00:00:00 00:00:00 Hospital Tobacco use and 2019-01-18 2019-01-[address] [facility] [address] [facility] exposure 00:00:00 00:00:00 Medical Center History SDOH 2019-01-18 2019-01-[address] [facility] Alcohol Frequency 00:00:00 00:00:00 [facility] Sex Assigned At [birth year] [facility] 00:00:00 00:00:00 Hospital Smoking Status Start Date Stop Date Source Smokes tobacco daily 2022-06-01 00:00:00 [facility] Former smoker 2019-01-18 00:00:00 2019-01-18 00:00:00 [facility] Medications Ordered Filled Start Stop Current Ordering Indication Dosage Frequency Signature Comments Components Source Medication Medication Date Date Medication? Clinician (SIG) Name Name fentaNYL Yes 10ug Infuse 10 Meth pao 1-[address] 15:42: venous Hospita 14 catheter. l fentaNYL Yes 10ug Infuse 10 Meth pao 1-[address] 15:42: venous Hospita 14 catheter. l linaCLOtide Yes 290ug QD Take 1 Met hodi (LINZESS) 1-[address] 290 mcg 15:36: (290 mcg Hospit a capsule 27 total) by l mouth daily before breakfast. linaCLOtide Yes 290ug QD Take 1 Met hodi (LINZESS) 1-[address] 290 mcg 15:36: (290 mcg Hospit a capsule 27 total) by l mouth daily before breakfast. omega 2021-05 Yes TAKE 1 Methodi 3-dha-epa-f 2-[address] tolu oil 300 00:00: MOUTH Hospi ta mg (120 mg- 00 DAILY FOR l 180mg)-1,00 HIGH 0 mg CHOLESTERO capsule L omega 2021-05 Yes TAKE 1 Methodi 3-dha-epa-f 2-[address] tolu oil 300 00:00: MOUTH Hospi ta mg (120 mg- 00 DAILY FOR l 180mg)-1,00 HIGH 0 mg CHOLESTERO capsule L carvediloL 2021-05 Yes 25mg Q.5D Take 1 Metho di (COREG) 25 2-14 tablet (25 st MG tablet 00:00: mg total) Hos graciela 00 by mouth 2 l (two) times a day. carvediloL 2021-05 Yes 25mg Q.5D Take 1 Metho di (COREG) 25 2-14 tablet (25 st MG tablet 00:00: mg total) Hos graciela 00 by mouth 2 l (two) times a day. cetirizine 2021-05 Yes 10mg Q.5D Take 1 Metho di (ZyrTEC) 10 2-12 tablet (10 st MG tablet 00:00: mg total) Hos graciela 00 by mouth 2 l (two) times a day. levothyroxi 2021-05 Yes TAKE 1 Meth pao ne 2-[address] (SYNTHROID) 00:00: MOUTH Hospi ta 125 mcg 00 DAILY IN l tablet THE MORNING ON AN EMPTY STOMACH montelukast 2021-05 Yes 10mg QD Take 1 Meth pao (SINGULAIR) 2-12 tablet (10 st 10 mg 00:00: mg total) Hospita tablet 00 by mouth l nightly. cetirizine 2021-05 Yes 10mg Q.5D Take 1 Metho di (ZyrTEC) 10 2-12 tablet (10 st MG tablet 00:00: mg total) Hos graciela 00 by mouth 2 l (two) times a day. levothyroxi 2021-05 Yes TAKE 1 Meth pao ne 2-[address] (SYNTHROID) 00:00: MOUTH Hospi ta 125 mcg 00 DAILY IN l tablet THE MORNING ON AN EMPTY STOMACH montelukast 2021-05 Yes 10mg QD Take 1 Meth pao (SINGULAIR) 2-12 tablet (10 st 10 mg 00:00: mg total) Hospita tablet 00 by mouth l nightly. amitriptyli 2021-05 Yes 50mg QD Take 1 Meth pao ne (ELAVIL) 2-05 tablet (50 st 50 MG 00:00: mg total) Hospita tablet 00 by mouth l nightly. amitriptyli 2021-05 Yes 50mg QD Take 1 Meth pao ne (ELAVIL) 2-05 tablet (50 st 50 MG 00:00: mg total) Hospita tablet 00 by mouth l nightly. gabapentin 2021-05 Yes 600mg Q.[id number] Take 1 Methodi (NEURONTIN) 1-[id number] 600 mg 00:00: 3D (600 mg Hospita tablet 00 total) by l mouth 3 (three) times a day. gabapentin 2021-05 Yes 600mg Q.[id number] Take 1 Methodi (NEURONTIN) 1-[id number] 600 mg 00:00: 3D (600 mg Hospita tablet 00 total) by l mouth 3 (three) times a day. famotidine 2021-05 Yes 20mg Q.5D Take 1 Metho di (PEPCID) 20 0-21 tablet (20 st MG tablet 00:00: mg total) Hos graciela 00 by mouth 2 l (two) times a day. famotidine 2021-05 Yes 20mg Q.5D Take 1 Metho di (PEPCID) 20 0-21 tablet (20 st MG tablet 00:00: mg total) Hos graciela 00 by mouth 2 l (two) times a day. omeprazole 2021-05 Yes TAKE 1 Metho di (PriLOSEC) 0-[address] 20 MG 00:00: MOUTH Hospita capsule 00 EVERY l MORNING IN THE MORNING omeprazole 2021-05 Yes TAKE 1 Metho di (PriLOSEC) 0-[address] 20 MG 00:00: MOUTH Hospita capsule 00 EVERY l MORNING IN THE MORNING gabapentin 2020-0 Yes 600mg Take 600 Un [...] 2020- No Slow IV Un roni (ZOFRAN 608 06-08 Push, ONCE ity o f (PF)) 12:50: 13:05 INTRA [place] injection 00 :06 PROCEDURE, Medi all Starting Branch Mon11/04/19 at 0750, Until Mon11/04/19 at 0805, Routine, Intra-op bupivacaine 2020-0 Yes PRN, Univer s -epinephrin 6-08 Starting ity of e-pf 12:39: Mon11/04/19 [place] (SENSORCAIN 00 at 0739, Medi all E Until Branch W/EPINEPHRI Discontinu NE) 0.25 ed, %-1:200,000 Routine, injection Intra-op PHENYLephri 2020-0 2020- No ONCE INTRA Univers ne 1000 11-0308 PROCEDURE, ity o f mcg/10 mL 12:39: 13:05 Starting Chi as in 0.9% 00 :06 11/04/19 Medica l NaCl at 0739, Branch syringe Until Mon11/04/19 at 0805, Routine, Intra-op ciprofloxac 2020-0 2020- No Administer Univers in in 5 % 11-03 over 60 ity of dextrose 12:38: 13:05 [place], [place] (CIPRO) 00 :06 ONCE INTRA Medica l piggyback PROCEDURE, Bran ch Starting 11/04/19 at 0738, Until Mon11/04/19 at 0805, SHIVA, Intra-op FENTanyl PF 2019-0 2020- No Intravenou Univers (SUBLIMAZE 11-03 s, ONCE ity o f (PF)) 12:25: 13:05 INTRA [place] injection 00 :06 PROCEDURE, [facility] all Starting Branch 11/04/19 at 0725, Until Mon11/04/19 at 0805, Routine, Intra-op lidocaine 2019-0 2020- No ONCE INTRA U nivers 1% 11-0308 PROCEDURE, ity of (XYLOCAINE) 12:25: 13:05 Starting [place] 100 mg/10 00 :06 11/04/19 Medi all mL (1 %) at 0725, Branch injection Until Mon11/04/19 at 0805, Routine, Intra-op succinylcho 2020-0 2020- No Intravenou Univers line 11-03-08 s, ONCE ity of (QUELICIN) 12:25: 13:05 INTRA [place] injection 00 :06 PROCEDURE, Medi all Starting Branch 11/04/19 at 0725, Until Mon11/04/19 at 0805, Routine, Intra-op propofol IV 2020-0 2020- No Intravenou Univers infusion 11-03-08 s, ONCE ity of 12:25: 13:05 INTRA [place] 00 :06 PROCEDURE, Medical Starting Branch 11/04/19 at 0725, Until Mon11/04/19 at 0805, Routine, Intra-op midazolam 2020-0 2020- No IV Push, Uni vers (VERSED) 11-0308 ONCE INTRA ity of injection 12:17: 13:05 PROCEDURE, [place] 00 :06 Starting Medical 11/04/19 Branch at 0717, Until 11/04/19 at 0805, Routine, Intra-op lactated 2019-2019- No 1000mL at 20 Unive rs ringers IV 11-03 06-08 mL/hr, ity of infusion 11:45: 12:23 1,000 mL, Chi as 1,000 mL 00 :00 IV Medical Infusion, Branch ONCE, 1 dose, 11/04/19 at 0645, Routine, DSU Pre-op Levothyroxi [...] No 100mg Take 100 U nivers succinate 10-31-05 mg by ity of XL (TOPROL 16:53: 00:00 mouth [place] XL) 100 mg 34 :00 daily. Medical 24 hr Branch tablet HYDROcodone 2019- No 1{tbl} Take 1 Tab Univers -acetaminop 10-31-05 by mouth 2 i ty of hen (NORCO) 16:53: 00:00 (two) [place] 10-325 mg 34 :00 times Medical tablet daily. Branch cyclobenzap 2019- No 10mg Take 10 mg Univers rine 10-31-05 by mouth 2 ity of (FLEXERIL) 16:53: 00:00 (two) [place] 10 mg 34 :00 times Medical tablet daily. Branch diazepam 2019- No 10mg Take 10 mg Un roni (VALIUM) 10 10-31-05 by mouth ity of mg tablet 16:53: 00:00 at [place] 34 :00 bedtime. Medical Branch diphenhydrA 0 2019- No 50mg Take 50 mg Univers MINE 10-31-05 by mouth ity of (BENADRYL) 16:53: 00:00 at [place] 25 mg 34 :00 bedtime. Medical capsule Branch aspirin 81 2019- No 81mg Take 81 mg Univers mg EC 10-3105 by mouth ity of tablet 16:53: 00:00 daily. [place] 34 :00 Medical Branch lansoprazol 2019- No 15mg Take 15 mg Univers e 10-3105 by mouth ity of (PREVACID) 16:53: 00:00 daily. [place] 15 mg 34 :00 Medical capsule Branch ACETAMINOPH 2019- No 1{tbl} Take 1 Tab Univers EN/DIPHENHY 10-31 by mouth ity of DRAMINE 16:53: 00:00 at bedtime Chi as (TYLENOL PM 34 :00 as needed. Me dical ORAL) Branch SUFentanil No 25ug 25 mcg by Edmund griffiths in Total 10-31 Intratheca ity of Volume 16:53: 00:00 l route [place] 34 :00 every 1 Medical (one) Branch hour. Indication s: Pain pump pregabalin 2019- No 75mg Take 75 mg Univers (LYRICA) 75 10-31 by mouth 3 i ty of mg capsule 16:53: 00:00 (three) Chi as 34 :00 times Medical daily. Branch losartan 2019- No 100mg Take 100 Uni vers (COZAAR) 10-3105 mg by ity of 100 mg 16:53: 00:00 mouth [place] tablet 34 :00 daily. Medical Branch amitriptyli Yes 25mg Take 25 mg Univers ne 25 mg 5-23 by mouth ity of tablet 00:00: at [place] 00 bedtime. Medical Branch amitriptyli Yes 25mg Take 25 mg Univers ne 25 mg 5-23 by mouth ity of tablet 00:00: at [place] 00 bedtime. Medical Branch amitriptyli Yes 25mg Take 25 mg Univers ne 25 mg 5-23 by mouth ity of tablet 00:00: at [place] 00 bedtime. Medical Branch gabapentin Yes 600mg Q.[id number] Take [address] (NEURONTIN) 8-26 [id number] mg by L ukes 600 MG 14:11: [...] tablet 14:11: every Medical 41 other day. [place] traMADol Yes 50mg Take [address] (ULTRAM) 50 8-26 by mouth Luke s mg tablet 14:11: every 6 Medic al 41 (six) Center hours as needed for Pain. meclizine Yes 12.5mg Take 12.[address] (ANTIVERT) 8-26 mg by [facility] 12.5 mg 14:11: mouth 2 Medical tablet 41 (two) Center times daily as needed. melatonin 2018- Yes QD Take by [facility]I [facility] t 10 mg Tab 8-26 mouth [facility]ukes 14:11: nightly. [address] diphenhydrA 0 Yes 25mg Take [address] MINE 8-26 by mouth [facility]ukes (BENADRYL) 14:11: every 6 Medi all 25 mg 41 (six) Center capsule hours as needed for Itching. gabapentin 2019-0 Yes 600mg Q.[id number] Take [address] (NEURONTIN) 8-26 [id number] mg by L ukes 600 MG 14:11: 3D mouth 3 Medical tablet 41 (three) Center times daily. levothyroxi 2019-0 Yes 125ug Take [address] ne 8-26 mcg by Lukes (SYNTHROID, 14:11: mouth Medic al LEVOTHROID) 41 Every Center 125 MCG morning on tablet an empty stomach. pravastatin 20190 Yes 40mg QD Take 40 mg CHI [...] every Medical 41 other day. Center traMADol Yes 50mg Take [address] (ULTRAM) 50 8-26 by mouth Luke s mg tablet 14:11: every 6 Medic al 41 (six) Center hours as needed for Pain. meclizine 0 Yes 12.5mg Take 12.[address] (ANTIVERT) 8-26 mg by [facility]ukes 12.5 mg 14:11: mouth 2 Medical tablet 41 (two) Center times daily as needed. melatonin 0 Yes QD Take by [facility]I [facility] t 10 mg Tab 8-26 mouth [facility]ukes 14:11: nightly. Medical 41 Center diphenhydrA 0 Yes 25mg Take [address] MINE 8-26 by mouth [facility]ukes (BENADRYL) 14:11: every 6 Medi all 25 mg 41 (six) Center capsule hours as needed for Itching. gabapentin 0 Yes 600mg Q.[id number] Take [address] (NEURONTIN) 8-26 [id number] mg by L ukes 600 MG 14:11: 3D mouth 3 Medical tablet 41 (three) Center times daily. levothyroxi 0 Yes 125ug Take [address] ne 8-26 mcg by Lukes (SYNTHROID, 14:11: mouth Medic al LEVOTHROID) 41 Every Center 125 MCG morning on tablet an empty stomach. pravastatin 20190 Yes 40mg QD Take [address] (PRAVACHOL) 8-26 by mouth Luke s 40 MG 14:11: daily. Medical tablet 41 Center spironolact 2019-0 Yes 50mg Take [address] one 8-26 by mouth Lukes (ALDACTONE) 14:11: every Medic al 50 MG 41 other day. Center tablet furosemide 0 Yes 20mg Take [address] (LASIX) 20 8-26 by mouth Lukes MG tablet 14:11: every Medical 41 other day. Center traMADol Yes 50mg Take [address] (ULTRAM) 50 8-26 by mouth Luke s mg tablet 14:11: every 6 Medic al 41 (six) Center hours as needed for Pain. meclizine 2019-0 Yes 12.5mg Take 12.[address] (ANTIVERT) 8-26 mg by Lukes 12.5 mg 14:11: mouth 2 Medical tablet 41 (two) Center times daily as needed. melatonin 2019-0 Yes QD Take by [facility]I S t 10 mg Tab 8-26 mouth Lukes 14:11: nightly. Medical [address] [place] [address] diphenhydrA 2019-0 Yes 25mg Take [address] MINE 8-26 by mouth Lukes (BENADRYL) 14:11: every 6 Medi all 25 mg 41 (six) Center capsule hours as needed for Itching. gabapentin 2019-0 Yes 600mg Q.[id number] Take [address] (NEURONTIN) 8-26 [id number] mg by L ukes 600 MG 14:11: [...] 40 MG 14:11: daily. Medical tablet 41 [place] spironolact 2019-0 Yes 50mg Take [address] one 8-26 by mouth [facility]ukes (ALDACTONE) 14:11: every Medic al 50 MG 41 other day. Center tablet furosemide 2019-0 Yes 20mg Take [address] (LASIX) 20 8-26 by mouth Lukes MG tablet 14:11: every Medical 41 other day. Center traMADol 2019-0 Yes 50mg Take [address] (ULTRAM) 50 8-26 by mouth Luke s mg tablet 14:11: every 6 Medic al 41 (six) Center hours as needed for Pain. meclizine 2019-0 Yes 12.5mg Take 12.[address] (ANTIVERT) 8-26 mg by Lukes 12.5 mg 14:11: mouth 2 Medical tablet 41 (two) Center times daily as needed. melatonin 2019-0 Yes QD Take by [facility]I [facility] t 10 mg Tab 8-26 mouth [facility]ukes 14:11: nightly. Medical 41 [place] diphenhydrA 2019-0 Yes 25mg Take [address] MINE 8-26 by mouth [facility]ukes (BENADRYL) 14:11: every 6 Medi all 25 mg 41 (six) Center capsule hours as needed for Itching. gabapentin 2019-0 Yes 600mg Q.[id number] Take [address] (NEURONTIN) 8-26 [id number] mg by L ukes 600 MG 14:11: [...] 40 MG 14:11: daily. Medical tablet 41 [place] spironolact 0 Yes 50mg Take [address] one 8-26 by mouth [facility]ukes (ALDACTONE) 14:11: every Medic al 50 MG 41 other day. Center tablet furosemide 2018-0 Yes 20mg Take [address] (LASIX) 20 8-26 by mouth Lukes MG tablet 14:11: every Medical 41 other day. Center traMADol 2019-0 Yes 50mg Take [address] (ULTRAM) 50 8-26 by mouth Luke s mg tablet 14:11: every 6 Medic al 41 (six) Center hours as needed for Pain. meclizine 2019-0 Yes 12.5mg Take 12.[address] (ANTIVERT) 8-26 mg by Lukes 12.5 mg 14:11: mouth 2 Medical tablet 41 (two) Center times daily as needed. melatonin 2019-0 Yes QD Take by [facility] t 10 mg Tab 8-26 mouth Lukes 14:11: nightly. [address] diphenhydrA 2019-0 Yes 25mg Take [address] MINE 8-26 by mouth [facility]ukes (BENADRYL) 14:11: every 6 Medi all 25 mg 41 (six) Center capsule hours as needed for Itching. lactulose 2019-0 Yes 20g Q.5D Take 30 [facility] (CHRONULAC) 7-20 mLs (20 g Iwona es 20 gram/30 00:00: total) by La dical mL solution 00 mouth 2 Cente [...] with Pste skin topical breakdown. paste lactulose 2019-0 Yes 20g Q.5D Take 30 [facility] [...] Yes 15mg Take 15 mg Univers e 1-02 by mouth ity of (PREVACID) 14:44: daily. [place] 15 mg 02 Medical capsule Branch SUFentanil Yes 25ug 25 mcg by Un roni in Total 05-30 Intratheca ity o f Volume 14:44: l route [place] 02 every 1 Medical (one) Branch hour. Indication s: Pain pump Levothyroxi 2017 Yes 150ug Take 150 U nivers ne [...] 14:44: daily. [place] 02 Medical Branch lansoprazol 2017 Yes 15mg Take 15 mg Univers e 02 by mouth ity of (PREVACID) 14:44: daily. [...] 3 [place] tablet 01 (three) Medical times [place] daily. ACETAMINOPH Yes 1{tbl} Take 1 Tab [...] 3 [place] tablet 01 (three) Medical times [place] daily. Vital Signs Vital Name Observation Time Observation Value Comments Source Systolic blood 2019-11-04 13:35:00 134 mm[Hg] Univer sity of pressure [facility] Diastolic blood 2019-11-04 13:35:00 59 mm[Hg] Unive rsity of pressure [facility] Heart rate 2019-11-04 13:35:00 84 /min [facility] Respiratory rate 2019-11-04 13:35:00 20 /min Univ ersity of [facility] Oxygen saturation in 2019-11-04 13:35:00 96 /min [facility] Arterial blood by [facility] Pulse oximetry Branch Body temperature 2019-11-04 13:05:00 36.5 Julissa [facility] Body height 2019-10-25 14:46:00 167.6 cm [facility] Body weight 2019-10-25 14:46:00 87.1 kg [facility] BMI 2019-10-25 14:46:00 31.01 kg/m2 [facility] Respiratory rate 2019-11-04 13:01:00 21 /min [facility] Systolic blood 2022-06-06 15:38:00 146 mm[Hg] [facility] pressure Diastolic blood 2022-06-06 15:38:00 77 mm[Hg] [facility] pressure Heart rate 2022-06-06 15:38:00 55 /min [facility] [place] [facility] Body temperature 2022-06-06 15:38:00 36.5 Julissa [facility] Body height 2022-06-06 15:38:00 165.1 cm [facility] [place] [facility] Body weight 2022-06-06 15:38:00 84.369 kg [facility] [place] [facility] BMI 2022-06-06 15:38:00 30.95 kg/m2 [facility] [place] [facility] Oxygen saturation in 2022-06-06 15:38:00 97 /min [facility] Arterial blood by Pulse oximetry Procedures Procedure Date / Time Performing Clinician Source Performed CBC WITH PLATELET AND 2022-06-06 17:58:00 [facility] DIFFERENTIAL COMPREHENSIVE METABOLIC 2022-06-06 17:58:00 Jj [facility] PANEL PROTHROMBIN TIME WITH INR 2022-06-06 17:58:00 Jj [facility] PARTIAL THROMBOPLASTIN 2022-06-06 17:58:00 [facility]j [facility] TIME (PTT) ESTIMATED GFR 2022-06-06 17:58:00 [facility] US HEAD OR NECK LIMITED 2022-05-24 00:00:00 Provider, Not In [facility] CT CHEST W CONTRAST 2022-05-24 00:00:00 Provider, Not In [facility] CT SOFT TISSUE NECK W 2022-05-24 00:00:00 Provider, Not In [facility] CONTRAST System INTUBATION 2019-11-04 12:45:34 Mendez Tate [facility] [place] DAY SURGERY - ADC 2019-11-04 05:01:00 Doctor Unassigned, [facility] Name Medical Branch PHYSICIAN ORDERS 2019-10-28 05:01:00 Doctor Unassigned, [facility] Name Medical [place] Plan of Care Planned Activity Planned Date Details Comments Source Future Scheduled 2022-06-21 COVID-19 VACCINE (#1) [facility] Test 10:19:33 [code = COVID-19 VACCINE (#1)] Future Scheduled 2022-06-21 Pneumococcal Vaccine: [facility] Test 10:19:33 Pediatrics (0 to 5 Years) and At-Risk Patients (6 to 64 Years) (1 - PCV) [code = Pneumococcal Vaccine: Pediatrics (0 to 5 Years) and At-Risk Patients (6 to 64 Years) (1 - PCV)] Future Scheduled 2022-06-21 Hepatitis C screening [facility] Test 10:19:33 (procedure) [code = 359307805] Future Scheduled 2022-06-21 Screening for [facility] Test 10:19:33 malignant neoplasm of cervix (procedure) [code = 978011565] Future Scheduled 2022-06-21 BREAST CANCER [facility] Test 10:19:33 SCREENING [code = BREAST CANCER SCREENING] Future Scheduled 2022-06-21 COLONOSCOPY SCREENING [facility] Test 10:19:33 [code = COLONOSCOPY SCREENING] Future Scheduled 2022-06-21 Screening for [facility] Test 10:19:33 malignant neoplasm of lung (procedure) [code = 861692402] Future Scheduled 2022-06-21 SHINGLES VACCINES (1 [facility] Test 10:19:33 of 2) [code = SHINGLES VACCINES (1 of 2)] Future Scheduled 2022-06-21 HEPATITIS B VACCINES [facility] Test 10:19:33 (1 of 3 - Risk 3-dose series) [code = HEPATITIS B VACCINES (1 of 3 - Risk 3-dose series)] Future Scheduled 2022-06-21 INFLUENZA VACCINE [facility] Test 10:19:33 [code = INFLUENZA VACCINE] Future Scheduled 2022-06-10 COVID-19 VACCINE (#1) [facility] Test 12:48:44 [code = COVID-19 VACCINE (#1)] Future Scheduled 2022-06-10 Pneumococcal Vaccine: [facility] Test 12:48:44 Pediatrics (0 to 5 Years) and At-Risk Patients (6 to 64 Years) (1 - PCV) [code = Pneumococcal Vaccine: Pediatrics (0 to 5 Years) and At-Risk Patients (6 to 64 Years) (1 - PCV)] Future Scheduled 2022-06-10 Hepatitis C screening [facility] Test 12:48:44 (procedure) [code = 434646978] Future Scheduled 2022-06-10 Screening for [facility] Test 12:48:44 malignant neoplasm of cervix (procedure) [code = 852739247] Future Scheduled 2022-06-10 BREAST CANCER [facility] Test 12:48:44 SCREENING [code = BREAST CANCER SCREENING] Future Scheduled 2022-06-10 COLONOSCOPY SCREENING [facility] Test 12:48:44 [code = COLONOSCOPY SCREENING] Future Scheduled 2022-06-10 Screening for [facility] Test 12:48:44 malignant neoplasm of lung (procedure) [code = 761396985] Future Scheduled 2022-06-10 SHINGLES VACCINES (1 [facility] Test 12:48:44 of 2) [code = SHINGLES VACCINES (1 of 2)] Future Scheduled 2022-06-10 HEPATITIS B VACCINES [facility] Test 12:48:44 (1 of 3 - Risk 3-dose series) [code = HEPATITIS B VACCINES (1 of 3 - Risk 3-dose series)] Future Scheduled 2022-06-10 INFLUENZA VACCINE [facility] Test 12:48:44 [code = INFLUENZA VACCINE] Encounters Start End Encounter Admission Attending Care Care Encounter Source Date/Time Date/Time Type Type Clinicians Facility Department ID 2021-03-25 Outpatient SOLE, [facility] [id number] Univers 23:02:16 [facility] 2022-06-15 2022-06-15 Travel 1.2.840.1 1.2.468.600 [id number] Methodi 00:00:00 00:00:[address] 3.430.2.7 0.2.7.3.698 Ho spita .3.796638 084.8 l .8 2022-06-14 2022-06-14 Telephone Lazaro, 1.2.840.1 [id number] 2100 010545 Methodi 00:00:00 00:00:[address] 3.430.2.7 Hospit a .3.468958 l .8 2022-06-10 2022-06-10 Orders Obed, 1.2.840.1 [id number] 414 [id number] Methodi 00:00:00 00:00:00 Only Eileen 23413.1.[address] 3.430.2.7 Hospit a .3.039767 l .8 2022-06-10 2022-06-10 Alonzo Clay 1.2.840.1 [id number] 386 [id number] Methodi 00:00:00 00:00:00 Only Eileen 95223.1.[address] 3.430.2.7 Hospit a .3.248534 l .8 2022-06-07 2022-06-07 Transcrianna [place], 1.2.840.1 [id number] 21 [id number] Methodi 00:00:00 00:00:00 Orders Ray [address]359.1.[address] 3.430.2.7 Hospit a .3.705348 l .8 2022-06-07 2022-06-07 Orders Obed 1.2.840.1 [id number] 788 1093406 Methodi 00:00:00 00:00:00 Only Eileen 17714.1.[address] 3.430.2.7 Hospit a .3.971818 l .8 2022-06-07 2022-06-07 Transcribe [place], 1.2.840.1 [id number] 21 58718170 Methodi 00:00:00 00:00:00 Orders Ray [address]345.1.[address] 3.430.2.7 Hospit a .3.228331 l .8 2022-06-07 2022-06-07 Alonzo Clay 1.2.840.1 [id number] 605 [id number] Methodi 00:00:00 00:00:00 Only Eileen 61209.1.[address] 3.430.2.7 Hospit a .3.710290 l .8 2022-06-06 2022-06-06 Office [facility], 1.2.840.1 [id number] 25268 Methodi 09:30:00 11:52:43 Visit Ray 62163.1.[address] 3.430.2.7 Hospit a .3.980725 l .8 2022-06-06 2022-06-06 Office [facility], 1.2.840.1 [id number] 21001 01832 Methodi 09:30:00 11:52:43 Visit Ray 70303.1.[address] 3.430.2.7 Hospit a .3.699596 l .8 2022-06-06 2022-06-06 Lab [facility], 1.2.840.1 [id number] 39784 Methodi 11:40:00 11:45:[address] 3.430.2.7 Hospit a .3.632100 l .8 2022-06-06 2022-06-06 Lab [facility], 1.2.840.1 [id number] 21001 54963 Methodi 11:40:00 11:45:[address] 3.430.2.7 Hospit a .3.199574 l .8 2022-06-06 2022-06-06 Travel 1.2.840.1 1.2.396.993 8616 581108 Methodi 00:00:00 00:00:[address] 3.430.2.7 0.2.7.3.698 Ho spita .3.043679 084.8 l .8 2022-06-06 2022-06-06 Travel 1.2.840.1 1.2.521.607 8695 535034 Methodi 00:00:00 00:00:[address] 3.430.2.7 0.2.7.3.698 Ho spita .3.058490 084.8 l .8 2022-06-01 2022-06-01 Abstract Obed, 1.2.840.1 [id number] 10025198 Methodi 00:00:00 00:00:[address] 3.430.2.7 Hospit a .3.448405 l .8 2022-06-01 2022-06-01 Abstract Obed, 1.2.840.1 [id number] 40995599 Methodi 00:00:00 00:00:[address] 3.430.2.7 Hospit a .3.977409 l .8 2022-05-24 2022-05-24 Orders Provider, 1.2.840.1 [id number] 2099 847215 Methodi 00:00:00 00:00:00 [place] [address]08.1.[address] System 3.430.2.7 Hospit a .3.469511 l .8 2022-05-24 2022-05-24 Orders Provider, 1.2.840.1 [id number] 2099 256266 Methodi 00:00:00 00:00:00 [place] [address]843.1.[address] System 3.430.2.7 Hospit a .3.924163 l .8 2022-04-18 2022-04-18 Outpatient Zoila Pina [facility] RADI LA00 [id number] [facility] 09:37:00 09:37:00 08 [facility] 2022-03-23 2022-03-23 Outpatient Zoila Pina [facility] RAD[facility] LA00 [id number] [facility] 08:31:00 08:31:00 38 [facility] 2019-11-04 2019-11-04 [facility] 1.2.840.114 [id number] [id number] Univers 06:03:00 08:38:00 Encounter Yeison Aparicio 350.1.13.10 [phone] [place] [address] Branch 2019-11-04 2019-11-04 Anesthesia Beau Galan [facility] 1.2.840.11 4 [id number] Univers 07:23:00 08:05:00 Samy Malik 35 0.1.13.10 [facility] [place] 4[place].2.[place] [phone] [facility] 020 Branch 2019-11-04 2019-11-04 Orders Doctor JUAN A 1.2.840.114 [id number] Univers 00:00:00 00:00:00 Only Unassigned, YE[facility] 350.1.13.10 [facility] 4.2.7.2.686 Chi as [phone] [address] 2019-11-01 2019-11-[address] [facility] [id number] 85958 Univers 09:15:00 09:15:00 [facility] 2019-11-01 2019-11-01 Laboratory Only, Adc Test [facility] 1.2.840. 114 [id number] Univers 08:58:47 09:13:47 Only Sole Yeison Ziyad Aparicio 350.1.13.1 0 [facility] [place].2.686 [place] [phone] La dical [facility] 353 [facility] 2019-10-28 2019-10-[address] [facility] 04349 02656 Univers 09:30:00 09:30:00 [facility] 2019-10-28 2019-10-28 Orders Doctor JUAN A 1.2.840.114 [id number] Univers 00:00:00 00:00:00 Only Unassigned, YEIMY 350.1.13.10 [facility] 4.2.7.2.686 Chi as [phone] [address] Results Test Description Test Time Test Comments Results Result [facility] e Comments - CT CHEST 2022-04-18 W/CONTRAST 13:07:00 [facility] 1960 Sex: F Name: LATRICE PEREIRA [facility] : 1960 Age/S: 62 / F [address] [address] Unit #: [id number] Loc: [place] [address] Phys: Zoila Pete DO Acct: [id number] Dis Date: Status: REG CLI PHONE #: [phone] Exam Date: 04/18/2022 1103 FAX #: Reason: CHRONIC LYMPHADENITIS EXPECT MESENTERIC EXAMS: CPT: [id number] CT CHEST W/CONTRAST 91699 Location Code: S17 EXAMINATION: - CT CHEST [...] 1 Signed Report (CONTINUED) Name: LATRICE PEREIRA [facility] Grzegorz : 1960 Age/S: 62 / F [address] [address] Unit #: [id number] Loc: [place] [address] Phys: Zoila Pete DO Acct: [id number] Dis Date: Status: REG CLI PHONE #: [phone] Exam Date: 04/18/2022 1103 FAX #: Reason: CHRONIC LYMPHADENITIS EXPECT MESENTERIC EXAMS: CPT: [id number] CT CHEST W/CONTRAST 30727 (Continued) Upper Abdomen: Abdomen: The gallbladder is [...] RT,(R),(CT) CTDI: DLP: Trnscb Date/Time: 04/18/2022 (1307) [email or web address].[email or web address] Orig Print D/T: S: 04/18/2022 (1311) PAGE 2 Signed Report - US HEAD AND NECK 2022-04-18 12:33:00 [facility] 1960 Sex: F Name: LATRICE PEREIRA : 1960 Age/S: 62 / F [address] Unit #: [id number] Loc: [place] [address] Phys: Zoila Pete DO Acct: [id number] Dis Date: Status: REG CLI PHONE #: [phone] Exam Date: 04/18/2022 1045 FAX #: Reason: CHRONIC LYMPHADENITIS EXCEPT MESENTERIC EXAMS: CPT: [id number] US HEAD AND NECK 83647 Location Code: S17 EXAMINATION: - US HEAD [...] PEREIRA : 1960 Age/S: 62 / F [address] [address] Unit #: [id number] Loc: [place] [address] Phys: Zoila Pete DO Acct: [id number] Dis Date: Status: REG CLI PHONE #: [phone] Exam Date: 04/18/2022 1045 FAX #: Reason: CHRONIC LYMPHADENITIS EXCEPT MESENTERIC EXAMS: CPT: [id number] US HEAD AND NECK 02631 (Continued) at 1233 Reported and signed by: Nash Alegria M.D. CC: Zoila Pete DO; Tavares Whyte MD Technologist: Kassi Nelson RDMS Trnwvb Date/Time: 04/18/2022 (1233) [email or web address] PAGE 2 Signed Report Name: LATRICE PEREIRA [facility] : 1960 Age/S: 62 / F [address] [address] Unit #: [id number] Loc: [place] [address] Phys: Zoila Pete DO Acct: [id number] Dis Date: Status: REG CLI PHONE #: [phone] Exam Date: 04/18/2022 1045 FAX #: Reason: CHRONIC LYMPHADENITIS EXCEPT MESENTERIC EXAMS: CPT: [id number] US HEAD AND NECK 61994 (Continued) Orig Print D/T: S: 04/18/2022 (1255) Probe: PAGE 3 Signed Report - CT NECK 2022-03-23 W/CONTRAST 11:11:00 [facility] : 1960 Sex: F Name: LATRICE PEREIRA : 1960 Age/S: 62 / F [address] [address] Unit #: [id number] Loc: [place] [address] Phys: Zoila Pete DO Acct: [id number] Dis Date: Status: REG CLI PHONE #: [phone] Exam Date: 03/23/2022 1010 FAX #: Reason: PARALYSIS OF VOCAL CORDS AND LARYNX EXAMS: CPT: [id number] CT NECK W/CONTRAST 66138 LOCATION: B2 EXAM: CT NECK WITH CONTRAST [...] PEREIRA : 1960 Age/S: 62 / F [address] [address] Unit #: [id number] Loc: [place] [address] Phys: Zoila Pete DO Acct: [id number] Dis Date: Status: REG CLI PHONE #: [phone] Exam Date: 03/23/2022 1010 FAX #: Reason: PARALYSIS OF VOCAL CORDS AND LARYNX EXAMS: CPT: [id number] CT NECK W/CONTRAST 21486 (Continued) apices. at 1111 Reported and signed by: Dru Kaur M.D. CC: Zoila Pete DO; Tavares Whyte MD Technologist:Sharon Rm, RT,(R),(CT) CTDI: DLP: Trnscb Date/Time: 03/23/2022 (1111) [email or web address] Orig Print D/T: S: 03/23/2022 (7724) PAGE 2 Signed Report BLOOD UREA NITROGEN 2022-03-23 09:40:00 Test Item Value Reference Range Interpretation Comme nts BLOOD UREA NITROGEN (test code = BUN) 11 MG/DL 7-18 N CREATININE W ESTIMATED [id number] 09:40:00 Test Item Value Reference Range Interpretation Comments GLOMERULAR FILTRATION >=60 max estimate >60 RATE (test code = GFR) estGFR CREATININE (test code = 0.9 MG/DL 0.6-1.0 N CREAT) [id number] 12:45:34Mendez Tate CRNA ? ? 11/04/2019 ?7:47 AMIntubationDate/Time: 11/04/2019 7:23 AMUrgency: elective Airway not difficult General Information and Staff Patient location during procedure: ORResident/COPPER ETCHER: Mendez Tate CRNAPerformed: resident/COPPER ETCHER Indications and Patient ConditionIndications for airway management: [...] Measured from: lipsNumber of attempts at approach: 1Un[facility] AliceAMMONIA2020-[facility]-20 11:24:00 Test Item Value Reference Range Interpretation Comments AMMONIA (BEAKER) (test code = 348) 121 mol/L 18-72 H Sample not centrifuged within 15 minutes of collection. Result may be spuriously elevated.[id number] 10:38:00 Test Item Value Reference Range Interpretation Comments AMMONIA (BEAKER) (test code = 348) 54 mol/L 18-72 Sample not centrifuged within 15 minutes of collection.Result may be spuriously elevated.TISSUE [id number] 17:34:00Surgical Pathology Report Case: [id number] Authorizing Provider: Jj Mistry MD Collected: 01/21/2019 1144 Ordering Location: [facility] Endoscopy Received: 01/21/2019 1444 Services Pathologist: Rachael Savage MD Specimens: A) - Small Bowel, NOS, Small Bowel Biopsy B) - Stomach, Antrum, Gastric Antrum Biopsy A. SMALL BOWEL BIOPSY- DUODENAL MUCOSA WITH NO DIAGNOSTIC ALTERATIONB. STOMACH ANTRUM BIOPSY- CHRONIC INACTIVE GASTRITIS, MILD- NO INTESTINAL METAPLASIA, DYSPLASIA OR INVASIVE CARCINOMAIDENTIIFIED- NO HELICOBACTER PYLORI LIKE ORGANISMS IDENTIFIED ON WARTHIN STARRY STAIN Signing Pathologist Direct Phone Line: [phone] signed by aRchael Savage MD on 01/23/2019 at 5:34 [id number] X 2, [id number] VARICES WITHOUT BLEEDINGA. Small bowel NOSB. Gastric antrumPart A. The specimen is received in formalin container labeled with the patient's name, date of and medicalrecord number. The specimen consists of multiple portions of lindquist-brown tissue 0.6 x 0.4 x 0.3 cm in a ggregate submitted in toto in one cassette.Part B. [...] were evaluated along with the test tissue. Thesecontrol slides run alongside of the patients sample show appropriate staining. Internal positive andnegative controls when available are evaluated Immunohistochemistry technical testing was performed at [facility] Pathology Laboratory where it was developed and [...] to perform high complexity clinical laboratory testing.POCT-GLUCOSE [id number] 11:56:00 Test Item Value Reference Range Interpretation Comments POC-GLUCOSE METER 207 mg/dL 70-110 H TESTED AT [place] [address] ([facility]) (test code = ANALI Lorenzo [facility] 1538) [address] POCT-GLUCOSE [id number] 08:03:00 Test Item Value Reference Range Interpretation Comments POC-GLUCOSE METER 117 mg/dL 70-110 H TESTED AT [place] [address] ([facility]) (test code = [facility] Bj [facility] 1538) [address] [id number] 06:09:00 Test Item Value Reference Range Interpretation Comments MAGNESIUM (BEAKER) (test code = 1.9 mg/dL 1.6-2.6 627) BASIC METABOLIC [id number] 06:09:00 Test Item Value Reference Range Interpretation [...] APPLICABLE FOR DIALYSIS PATIEN TS. HEPATIC FUNCTION [id number] 06:09:00 Test Item Value Reference Range Interpretation [...] (test code = 44 U/L 6-55 347) [id number] 05:47:00 Test Item Value Reference Range Interpretation [...] mechanical heart valves.CBC W/PLT COUNT & AUTO [id number] 05:46:00 Test Item Value Reference Range Interpretation [...] PERCENT (BEAKER) (test code = 2801) POCT-GLUCOSE [id number] 23:48:00 Test Item Value Reference Range Interpretation Comments POC-GLUCOSE METER 182 mg/dL 70-110 H TESTED AT [facility] 6720 (BEAKER) (test code = ANALI [place] 1538) [address] POCT-GLUCOSE [id number] 18:04:00 Test Item Value Reference Range Interpretation Comments POC-GLUCOSE METER 95 mg/dL 70-110 TESTED AT [place] [address] [facility] (test code = NAALI Lorenzo [facility] [address] 1538) HEMOGLOBIN AND [id number] 17:04:00 Test Item Value Reference Range Interpretation Comments HEMOGLOBIN (BEAKER) (test code = 8.8 GM/DL 11.2-15.7 L 410) HEMATOCRIT (BEAKER) (test code = 27.4 % 34.1-44.9 L 411) BLOOD GAS, [id number] 15:45:00 Test Item Value Reference Range Interpretation [...] least 15 minutes prior to lab drawPOCT-GLUCOSE [id number] 11:29:00 Test Item Value Reference Range Interpretation Comments POC-GLUCOSE METER 205 mg/dL 70-110 H TESTED AT [place] [address] [facility] (test code = ANALI Lorenzo [facility] 1538) [address] RAD, CHEST, 1 VIEW, NON [id number] 08:46:00Reason for exam:->shortness of breathShould this be [...] MDReport Verified Date/Time: 12/14/2018 08:46:53 Reading Location: [facility] Radiology Reading Room POCT- GLUCOSE [id number] 08:21:00 Test Item Value Reference Range Interpretation Comments POC-GLUCOSE METER 107 mg/dL 70-110 TESTED AT [facility] 6720 (BEAKER) (test code = [place] 1538) [address] HEMOGLOBIN [id number] 08:02:00 Test Item Value Reference Range Interpretation Comments HEMOGLOBIN A1C (BEAKER) (test code = 5.1 % 4.3-6.1 368) [id number] 07:51:00 Test Item Value Reference Range Interpretation Comments MAGNESIUM (BEAKER) (test code = 1.8 mg/dL 1.6-2.6 627) BASIC METABOLIC [id number] 07:51:00 Test Item Value Reference Range Interpretation [...] DIALYSIS PATIEN TS. Specimen slightly ictericHEPATIC FUNCTION [id number] 07:51:00 Test Item Value Reference Range Interpretation [...] Specimen slightly ictericCBC W/PLT COUNT & AUTO [id number] 05:44:00 Test Item Value Reference Range Interpretation [...] 0-1 PERCENT (BEAKER) (test code = 2801) [id number] 05:41:00 Test Item Value Reference Range Interpretation [...] 2.5-3.5 for patients wiht mechanical heart valves.POCT-GLUCOSE [id number] 00:43:00 Test Item Value Reference Range Interpretation Comments POC-GLUCOSE METER 131 mg/dL 70-110 H TESTED AT [facility] 6720 ([facility]) (test code = [place] 1538) [address] POCT-GLUCOSE [id number] 17:27:00 Test Item Value Reference Range Interpretation Comments POC-GLUCOSE METER 133 mg/dL 70-110 H TESTED AT [facility] 6720 (BEAKER) (test code = [facility] 1538) [address] POCT-GLUCOSE [id number] 14:27:00 Test Item Value Reference Range Interpretation Comments POC-GLUCOSE METER 136 mg/dL 70-110 H TESTED AT [facility] 6720 (BEAKER) (test code = [facility] 1538) [address] POCT-GLUCOSE [id number] 12:53:00 Test Item Value Reference Range Interpretation Comments POC-GLUCOSE METER 207 mg/dL 70-110 H TESTED AT [facility] 6720 (BEAKER) (test code = [facility] 1538) [address] [id number] 07:55:00 Test Item Value Reference Range Interpretation Comments PHOSPHORUS (BEAKER) (test code = 2.9 mg/dL 2.3-4.7 604) [id number] 07:55:00 Test Item Value Reference Range Interpretation Comments MAGNESIUM (BEAKER) (test code = 1.9 mg/dL 1.6-2.6 627) BASIC METABOLIC [id number] 07:55:00 Test Item Value Reference Range Interpretation [...] DIALYSIS PATIEN TS. Specimen slightly ictericHEPATIC FUNCTION [id number] 07:55:00 Test Item Value Reference Range Interpretation [...] U/L 6-55 H 347) Specimen slightly ictericPOCT-GLUCOSE [id number] 07:52:00 Test Item Value Reference Range Interpretation Comments POC-GLUCOSE METER 117 mg/dL 70-110 H TESTED AT [facility] 6720 (BEAKER) (test code = ANALI Lorenzo [place] 1538) [address] CBC W/PLT COUNT & AUTO [id number] 06:01:00 Test Item Value Reference Range Interpretation [...] 0-1 PERCENT (BEAKER) (test code = 2801) [id number] 05:56:00 Test Item Value Reference Range Interpretation [...] 2.5-3.5 for patients wiht mechanical heart valves.BLOOD [id number] 02:01:00 Test Item Value Reference Range Interpretation Comments CULTURE (BEAKER) (test No growth in 5 days code = 1095) BLOOD [id number] 02:01:00 Test Item Value Reference Range Interpretation Comments CULTURE (KENNY) (test No growth in 5 days code = 1095) POCT-GLUCOSE [id number] 00:06:00 Test Item Value Reference Range Interpretation Comments POC-GLUCOSE METER 118 mg/dL 70-110 H TESTED AT [facility] 6720 (KENNY) (test code = ANALI Lorenzo [facility] 1538) [address] POCT-GLUCOSE [id number] 17:25:00 Test Item Value Reference Range Interpretation Comments POC-GLUCOSE METER 105 mg/dL 70-110 TESTED AT [facility] 6720 ([facility]) (test code = ANALI Lorenzo [facility] 1538) [address] HEMOGLOBIN AND [id number] 14:25:00 Test Item Value Reference Range Interpretation Comments HEMOGLOBIN (KENNY) (test code = 8.9 GM/DL 11.2-15.7 L 410) HEMATOCRIT (KENNY) (test code = 28.5 % 34.1-44.9 L 411) Contact hospitalist if Hgb <7.0RAD, ABDOMEN/KUB, 1 VIEW [id number] 14:09:00 Reason for exam:->abd distentionFINAL REPORT Abdomen, one view CLINICAL INDICATION: Abdominal distention COMPARISON: 12/10/2018 IMPRESSION:Dilated small bowel loops are again noted throughout the abdomen, similarto prior. There is also gaseous distention of the ascending and transverse colon. No gas is noted inthe sigmoid colon or rectum. Overall, the bowel gas pattern is unchanged. Signed: Alex Jenkins MDReport Verified Date/Time: 12/12/2018 14:09:05 Reading Location: [facility] C013W Consult Reading Room RAD, CHEST, 1 VIEW, NON [id number] 14:06:00Reason for exam:->hypoxiaShould this be performed at [...] MDReport Verified Date/Time: 12/12/2018 14:06:55 Reading Location: [address] Consult Reading Room POCT-GLUCOSE [id number] 12:31:00 Test Item Value Reference Range Interpretation Comments POC-GLUCOSE METER 194 mg/dL 70-110 H TESTED AT [facility] 6720 (BEAKER) (test code = ANALI Lorenzo [place] 1538) [address] POCT-GLUCOSE [id number] 07:44:00 Test Item Value Reference Range Interpretation Comments POC-GLUCOSE METER 116 mg/dL 70-110 H TESTED AT [facility] [address] (BEAKER) (test code = ANALI Lorenzo [place] 1538) [id number] 06:16:00 Test Item Value Reference Range Interpretation Comments PHOSPHORUS (BEAKER) (test code = 2.8 mg/dL 2.3-4.7 604) [id number] 06:16:00 Test Item Value Reference Range Interpretation Comments MAGNESIUM (BEAKER) (test code = 1.9 mg/dL 1.6-2.6 627) BASIC METABOLIC [id number] 06:16:00 Test Item Value Reference Range Interpretation [...] DIALYSIS PATIEN TS. Specimen slightly ictericHEPATIC FUNCTION [id number] 06:16:00 Test Item Value Reference Range Interpretation [...] 70 U/L 6-55 H 347) Specimen slightly ictericPT/[id number] 05:33:00 Test Item Value Reference Range Interpretation [...] mechanical heart valves.CBC W/PLT COUNT & AUTO [id number] 05:21:00 Test Item Value Reference Range Interpretation [...] PERCENT (BEAKER) (test code = 2801) POCT-GLUCOSE [id number] 00:10:00 Test Item Value Reference Range Interpretation Comments POC-GLUCOSE METER 127 mg/dL 70-110 H TESTED AT [facility] 67[address] (BEAKER) (test code = ANALI MOSS [place] 1538) 26363 POCT-GLUCOSE [id number] 17:40:00 Test Item Value Reference Range Interpretation Comments POC-GLUCOSE METER 165 mg/dL 70-110 H TESTED AT [place] [address] [facility] (test code = ANALI Lorenzo [facility] 1538) [address] POCT-GLUCOSE [id number] 12:35:00 Test Item Value Reference Range Interpretation Comments POC-GLUCOSE METER 190 mg/dL 70-110 H TESTED AT [place] [address] ([facility] (test code = ANALI Lorenzo [facility] 1538) [address] POCT-GLUCOSE [id number] 08:29:00 Test Item Value Reference Range Interpretation Comments POC-GLUCOSE METER 173 mg/dL 70-110 H TESTED AT [place] [address] ([facility]) (test code = ANALI Lorenzo [facility] 1538) [address] CBC W/PLT COUNT & AUTO [id number] 05:21:00 Test Item Value Reference Range Interpretation [...] 0-1 PERCENT (BEAKER) (test code = 2801) [id number] 05:18:00 Test Item Value Reference Range Interpretation Comments PHOSPHORUS (BEAKER) (test code = 2.1 mg/dL 2.3-4.7 L 604) [id number] 05:18:00 Test Item Value Reference Range Interpretation Comments MAGNESIUM (BEAKER) (test code = 2.2 mg/dL 1.6-2.6 627) BASIC METABOLIC [id number] 05:18:00 Test Item Value Reference Range Interpretation [...] APPLICABLE FOR DIALYSIS PATIEN TS. HEPATIC FUNCTION [id number] 05:18:00 Test Item Value Reference Range Interpretation [...] code = 110 U/L 6-55 H 347) [id number] 05:05:00 Test Item Value Reference Range Interpretation [...] is 2.5-3.5 for patients wiht mechanical heart valves.[id number] 05:05:00 Test Item Value Reference Range Interpretation Comments FIBRINOGEN LEVEL (BEAKER) (test 184 mg/dl 225-434 L code = 658) LACTIC ACID, [id number] 05:02:00 Test Item Value Reference Range Interpretation Comments LACTATE BLOOD VENOUS (2) (BEAKER) 1.8 mmol/L 0.5-2.2 (test code = 2872) POCT-GLUCOSE [id number] 22:06:00 Test Item Value Reference Range Interpretation Comments POC-GLUCOSE METER 295 mg/dL 70-110 H TESTED AT [facility] 67 ([facility]) (test code = [place]LI [place] 1538) [address] POCT-GLUCOSE [id number] 18:38:00 Test Item Value Reference Range Interpretation Comments POC-GLUCOSE METER 181 mg/dL 70-110 H TESTED AT [place] [address] ([facility]) (test code = ANALI Lorenzo [place] 1538) [address] BLOOD [id number] 16:53:00 Test Item Value Reference Range Interpretation Comments CULTURE A From Anaerobic Bottle ([facility]) (test Only Coagulas e code = 1095) negative Staphylococcus GRAM STAIN From anaerobic RESULT ([facility]) bottle only: gram (test code = positive cocci in 1123) clusters POCT-GLUCOSE [id number] 13:01:00 Test Item Value Reference Range Interpretation Comments POC-GLUCOSE METER 143 mg/dL 70-110 H TESTED AT [place] [address] ([facility]) (test code = ANALI Lorenzo [facility] 1538) [address] RAD, ABDOMEN/KUB, 1 VIEW [id number] 08:18:00Reason for exam:->ileusFINAL REPORT INDICATION:Ileus. COMPARISON: December [...] tube, and pain pump again noted. Signed: Trisha Borja MDReport Verified Date/Time: 12/10/2018 08:18:25 Reading Location: [facility] Diagnostic Imaging Reading Room - [place] [address] CBC W/PLT COUNT & AUTO [id number] 07:36:00 Test Item Value Reference Range Interpretation Comments WHITE BLOOD CELL COUNT ([facility]) 10.7 K/ L 3.5-10.5 H (test code [...] = 3438) Received comment: User comments: Slide comments:[id number] 05:18:00 Test Item Value Reference Range Interpretation Comments PHOSPHORUS (BEAKER) (test code = 2.5 mg/dL 2.3-4.7 604) [id number] 05:18:00 Test Item Value Reference Range Interpretation Comments MAGNESIUM (BEAKER) (test code = 2.2 mg/dL 1.6-2.6 627) BASIC METABOLIC [id number] 05:18:00 Test Item Value Reference Range Interpretation [...] APPLICABLE FOR DIALYSIS PATIEN TS. HEPATIC FUNCTION [id number] 05:18:00 Test Item Value Reference Range Interpretation [...] 136 U/L 6-55 H 347) LACTIC ACID, [id number] 05:00:00 Test Item Value Reference Range Interpretation Comments LACTATE BLOOD VENOUS (2) (BEAKER) 2.0 mmol/L 0.5-2.2 (test code = 2872) [id number] 04:39:00 Test Item Value Reference Range Interpretation Comments FIBRINOGEN LEVEL (BEAKER) (test 221 mg/dl 225-434 L code = 658) [id number] 04:39:00 Test Item Value Reference Range Interpretation [...] for patients wiht mechanical heart valves.U/S, ABDOMINAL, [id number] 01:07:00Reason for exam:->ASCITES EVAL Should this be [...] Willis Verified Date/Time: 12/10/2018 01:07:16 POCT- GLUCOSE [id number] 00:25:00 Test Item Value Reference Range Interpretation Comments POC-GLUCOSE METER 134 mg/dL 70-110 H TESTED AT [place] [address] ([facility]) (test code = ANALI Lorenzo [facility] 1538) [address] BLOOD [id number] 20:01:00 Test Item Value Reference Range Interpretation Comments CULTURE (BEAKER) (test No growth in 5 days code = 1095) HEMOGLOBIN AND [id number] 17:57:00 Test Item Value Reference Range Interpretation Comments HEMOGLOBIN (BEAKER) (test code = 8.8 GM/DL 11.2-15.7 L 410) HEMATOCRIT (BEAKER) (test code = 28.2 % 34.1-44.9 L 411) POCT-GLUCOSE [id number] 17:57:00 Test Item Value Reference Range Interpretation Comments POC-GLUCOSE METER 175 mg/dL 70-110 H TESTED AT [place] [address] ([employer]) (test code = ANALI Lorenzo [place] 1538) [address] POCT-GLUCOSE [id number] 13:23:00 Test Item Value Reference Range Interpretation Comments POC-GLUCOSE METER 110 mg/dL 70-110 TESTED AT [place] [address] ([email or web address]) (test code = ANALI Lorenzo [place] 1538) [address] CBC W/PLT COUNT & AUTO [id number] 09:54:00 Test Item Value Reference Range Interpretation Comments WHITE BLOOD CELL COUNT (BEAKER) 9.9 K/ L 3.5-10.5 (test code = [...] clips in the right abdomen. Signed: Macey Mayo Verified Date/Time: 12/09/2018 07:43:19 Reading Location: [facility] [address] [place] [address] Reading Room POCT-GLUCOSE [id number] 05:30:00 Test Item Value Reference Range Interpretation Comments POC-GLUCOSE METER 112 mg/dL 70-110 H TESTED AT [facility] 6720 (BEAKER) (test code = ANALI [place] 1538) [address] [id number] 05:09:00 Test Item Value Reference Range Interpretation Comments MAGNESIUM (BEAKER) 2.1 mg/dL 1.6-2.6 Specimen slightly (test code = 627) hemolyzed [id number] 05:09:00 Test Item Value Reference Range Interpretation Comments PHOSPHORUS (BEAKER) 2.2 mg/dL 2.3-4.7 L Specimen slightly (test code = 604) hemolyzed BASIC METABOLIC [id number] 05:09:00 Test Item Value Reference Range Interpretation [...] DIALYSIS PATIEN TS. Specimen slightly ictericHEPATIC FUNCTION [id number] 05:09:00 Test Item Value Reference Range Interpretation [...] = 347) hemolyzed Specimen slightly ictericLACTIC ACID, [id number] 04:54:00 Test Item Value Reference Range Interpretation Comments LACTATE BLOOD VENOUS (2) (BEAKER) 1.3 mmol/L 0.5-2.2 (test code = 2872) Specimen slightly ictericPT/[id number] 04:45:00 Test Item Value Reference Range Interpretation [...] is 2.5-3.5 for patients wiht mechanical heart valves.[id number] 04:45:00 Test Item Value Reference Range Interpretation Comments FIBRINOGEN LEVEL (BEAKER) (test 212 mg/dl 225-434 L code = 658) POCT-GLUCOSE [id number] 23:51:00 Test Item Value Reference Range Interpretation Comments POC-GLUCOSE METER 127 mg/dL 70-110 H TESTED AT [facility] 6720 ([facility]) (test code = ANALI [place] 1538) [address] [id number] 18:46:00 Test Item Value Reference Range Interpretation Comments PHOSPHORUS (BEAKER) (test code = 2.8 mg/dL 2.3-4.7 604) [id number] 18:46:00 Test Item Value Reference Range Interpretation Comments MAGNESIUM (BEAKER) (test code = 2.3 mg/dL 1.6-2.6 627) BASIC METABOLIC [id number] 18:46:00 Test Item Value Reference Range Interpretation [...] FOR DIALYSIS PATIEN TS. Specimen slightly ictericPOCT-GLUCOSE [id number] 17:54:00 Test Item Value Reference Range Interpretation Comments POC-GLUCOSE METER 93 mg/dL 70-110 TESTED AT [facility] 6720 ([facility]) (test [facility] = [facility] [address] 1538) LACTIC ACID, [id number] 12:49:00 Test Item Value Reference Range Interpretation Comments LACTATE BLOOD VENOUS (2) (BEAKER) 1.9 mmol/L 0.5-2.2 (test code = 2872) Specimen slightly ictericPOCT-GLUCOSE [id number] 12:09:00 Test Item Value Reference Range Interpretation Comments POC-GLUCOSE METER 142 mg/dL 70-110 H TESTED AT [facility] 6720 ([facility]) (test code = [facility] 1538) [address] RAD, ABDOMEN/KUB, 1 VIEW [id number] 08:31:00Reason for exam:->ileusShould this be performed at [...] MDReport Verified Date/Time: 12/08/2018 08:31:46 Reading Location: [facility] B1 C013Y CT Body Reading Room [id number] 08:02:00 Test Item Value Reference Range Interpretation Comments PHOSPHORUS (BEAKER) (test code = 1.7 mg/dL 2.3-4.7 L 604) POCT-GLUCOSE [id number] 05:40:00 Test Item Value Reference Range Interpretation Comments POC-GLUCOSE METER 128 mg/dL 70-110 H TESTED AT [facility] 6720 (BEAKER) (test code = ANALI Lorenzo [facility] 1538) [address] [id number] 05:14:00 Test Item Value Reference Range Interpretation Comments MAGNESIUM (BEAKER) (test code = 2.2 mg/dL 1.6-2.6 627) BASIC METABOLIC [id number] 05:14:00 Test Item Value Reference Range Interpretation [...] DIALYSIS PATIEN TS. Specimen slightly ictericHEPATIC FUNCTION [id number] 05:14:00 Test Item Value Reference Range Interpretation [...] 229 U/L 6-55 H 347) Specimen slightly [id number] 05:09:00 Test Item Value Reference Range Interpretation Comments FIBRINOGEN LEVEL (BEAKER) (test 223 mg/dl 225-434 L code = 658) [id number] 05:09:00 Test Item Value Reference Range Interpretation [...] mechanical heart valves.CBC W/PLT COUNT & AUTO [id number] 04:41:00 Test Item Value Reference Range Interpretation [...] (BEAKER) (test code = 2801) HEMOGLOBIN AND [id number] 04:38:00 Test Item Value Reference Range Interpretation Comments HEMOGLOBIN (BEAKER) (test code = 8.3 GM/DL 11.2-15.7 L 410) HEMATOCRIT (BEAKER) (test code = 26.1 % 34.1-44.9 L 411) POCT-GLUCOSE [id number] 00:02:00 Test Item Value Reference Range Interpretation Comments POC-GLUCOSE METER 125 mg/dL 70-110 H TESTED AT [facility] 6720 (BEAKER) (test code = ANALI [place] 1538) [address] [id number] 23:12:00 Test Item Value Reference Range Interpretation Comments POTASSIUM (BEAKER) (test code = 5.1 meq/L 3.5-5.1 379) [id number] 23:12:00 Test Item Value Reference Range Interpretation Comments MAGNESIUM (BEAKER) (test code = 2.3 mg/dL 1.6-2.6 627) HEMOGLOBIN AND [id number] 22:46:00 Test Item Value Reference Range Interpretation Comments HEMOGLOBIN (BEAKER) (test code = 7.8 GM/DL 11.2-15.7 L 410) HEMATOCRIT (BEAKER) (test code = 23.9 % 34.1-44.9 L 411) BLOOD CULTURE IDENTIFICATION [id number] 20:39:00 Test Item Value Reference Interpretation Comments Range LISTERIA MONOCYTOGENES Not detected Not detected (test code = 8375693) STAPHYLOCOCCUS (test Detected Not detected A Coagula se negative code = 20160503) Staph specie s (CoNS)- methici llin susceptibleFirs t-alvino e therapy: Cefa zolin or Oxacillin (Oxacillin pref erred if [employer] MEMBER involvem ent) MecA NOT DETECTEDPossibl e contamination. The likelihood of pathogenicity i s increased if th e organism is obs erved in multiple blo od cultures obtain ed from separate venipunctures.R efere nce Range: Not Detected STAPHYLOCOCCUS AUREUS Not detected Not detected (test code = 4418389) STREPTOCOCCUS (test Not detected Not detected code = 4301554) STREPTOCOCCUS Not detected Not detected AGALACTIAE (GROUP B) (test code = 9976887) STREPTOCOCCUS Not detected Not detected PNEUMONIAE (test code = 3076877) STREPTOCOCCUS PYOGENES Not detected Not detected (GROUP A) (test code = 4373444) ACINETOBACTER BAUMANNII Not detected Not detected (test code = 5470222) HAEMOPHILUS INFLUENZAE Not detected Not detected (test code = 7673145) NEISSERIA MENINGITIDIS Not detected Not detected (test code = 6777920) ENTEROBACTERIACEAE Not detected Not detected (test code = 1525674) ENTEROBACTER CLOACOE Not detected Not detected COMPLEX (test code = 3659748) KLEBSIELLA OXYTOCA Not detected Not detected (test code = 3138628) KLEBSIELLA PNEUMONIAE Not detected Not detected (test code = 1650) PROTEUS (test code = Not detected Not detected 3011060) SERRATIA MARCESCENS Not detected Not detected (test code = 0046907) LINDA ALBICANS (test Not detected Not detected code = 2159954) LINDA GLABRATA (test Not detected Not detected code = 5914586) LINDA KRUSEI (test Not detected Not detected code = 7473666) LINDA PARAPSILOSIS Not detected Not detected (test code = 6189946) LINDA TROPICALIS Not detected Not detected (test code = 3492585) ESCHERICHIA COLI (test Not detected Not detected code = 6894458) METHICILLIN-RESISTANCE Not detected Not detected GENE (test code = 2122656) VANCOMYCIN-RESISTANCE Not detected GENE (test code = 4038090) CARBAPENEM-RESISTANCE Not detected GENE (test code = 0912114) ENTEROCOCCUS-BEAKER Not detected Not detected (test code = 2407522) PSEUDOMONAS Not detected Not detected AERUGINOSA-BEAKER (test code = 3776289) Other bacteria and resistance markers not targeted by this PCR panel cannot be excluded; therefore clinical correlation and follow up of serology, culture results, and other molecular studies is required. The results are not intended to be used as the sole means for clinical diagnosis or patient management decisions. This sample was tested at the [facility] Molecular Diagnostics Laboratory using the [employer] Film[employer] Blood Culture ID Panel. It is FDA cleared and has been verified and approved by the [facility] for clinical use. This laboratory is CLIA-certified and College ofAmerican Pathologists (CAP)-accredited to perform high complexity testing.POCT-GLUCOSE [id number] 18:12:00 Test Item Value Reference Range Interpretation Comments POC-GLUCOSE METER 146 mg/dL 70-110 H TESTED AT [facility] 6720 (KENNY) (test code = [place]NALI [place] 1538) [address] LACTIC ACID, [id number] 15:57:00 Test Item Value Reference Range Interpretation Comments LACTATE BLOOD VENOUS (2) (BEAKER) 2.2 mmol/L 0.5-2.2 (test code = 2872) Specimen slightly ictericHEMOGLOBIN AND [id number] 15:42:00 Test Item Value Reference Range Interpretation Comments HEMOGLOBIN (BEAKER) (test code = 8.3 GM/DL 11.2-15.7 L 410) HEMATOCRIT (BEAKER) (test code = 25.0 % 34.1-44.9 L 411) RAD, ABDOMEN/KUB, 1 VIEW [id number] 15:11:00Reason for exam:->suspected ileusShould this be performed [...] tissue mass. Bones are osteopenic. Signed: Julia Sternepjuan antonio Verified Date/Time: 12/07/2018 15:11:34 Reading Location: [facility] Reading Room [id number] 12:18:00 Test Item Value Reference Range Interpretation Comments PROCALCITONIN (BEAKER) (test code 0.09 ng/mL <0.05 H = 3036) SEPSIS RISK (ng/mL)Low: 0.05-0.50Intermediate: 0.51-2.00High: >=2.01POCT- GLUCOSE [id number] 12:08:00 Test Item Value Reference Range Interpretation Comments POC-GLUCOSE METER 128 mg/dL 70-110 H TESTED AT [facility] 6720 (BEAKER) (test code = ANA[place] 1538) [address] LACTIC ACID, [id number] 11:54:00 Test Item Value Reference Range Interpretation Comments LACTATE BLOOD VENOUS (2) (BEAKER) 1.7 mmol/L 0.5-2.2 (test code = 2872) POCT-GLUCOSE [id number] 09:43:00 Test Item Value Reference Range Interpretation Comments POC-GLUCOSE METER 142 mg/dL 70-110 H TESTED AT [place] [address] ([facility]) (test code = [facility] 1538) [address] POCT-GLUCOSE [id number] 09:41:00 Test Item Value Reference Range Interpretation Comments POC-GLUCOSE METER 147 mg/dL 70-110 H TESTED AT [place] [address] ([facility]) (test code = [facility] 1538) [address] POCT-GLUCOSE [id number] 09:38:00 Test Item Value Reference Range Interpretation Comments POC-GLUCOSE METER 149 mg/dL 70-110 H TESTED AT [place] [address] ([facility]) (test code = [facility] 1538) [address] POCT-GLUCOSE [id number] 09:38:00 Test Item Value Reference Range Interpretation Comments POC-GLUCOSE METER 147 mg/dL 70-110 H TESTED AT [place] [address] ([facility]) (test code = [facility] 1538) [address] VANCOMYCIN LEVEL, [id number] 09:37:00 Test Item Value Reference Range Interpretation Comments VANCOMYCIN TROUGH ([facility]) (test 10.5 ug/mL 10.0-20.0 code = 522) POCT-GLUCOSE [id number] 09:35:00 Test Item Value Reference Range Interpretation Comments POC-GLUCOSE METER 161 mg/dL 70-110 H TESTED AT [place] [address] ([facility]) (test code = [facility] 1538) [address] HEMOGLOBIN AND [id number] 09:18:00 Test Item Value Reference Range Interpretation Comments HEMOGLOBIN ([facility]) (test code = 9.3 GM/DL 11.2-15.7 L 410) HEMATOCRIT ([facility]) (test code = 28.0 % 34.1-44.9 L 411) RAD, CHEST, 1 VIEW, NON [id number] 09:12:00Reason for exam:->Picc line placementShould this be [...] e steve. Bones are osteopenic. Signed: Julia Sterneport Verified Date/Time: 12/07/2018 09:12:03 Reading Location: [facility] Reading Room , ABDOMEN/KUB, 1 VIEW [id number] 04:39:00Reason for exam:->Concern for SBO vs Ileus [...] of the previously administered oral contrast. Signed: Beau Goldman Verified Date/Time: 12/07/2018 04:39:54 Reading Location: [address] Reading Room [id number] 04:12:00 Test Item Value Reference Range Interpretation Comments PHOSPHORUS (BEAKER) (test code = 3.5 mg/dL 2.3-4.7 604) [id number] 04:12:00 Test Item Value Reference Range Interpretation Comments MAGNESIUM (BEAKER) (test code = 1.8 mg/dL 1.6-2.6 627) BASIC METABOLIC [id number] 04:12:00 Test Item Value Reference Range Interpretation [...] DIALYSIS PATIEN TS. Specimen slightly ictericHEPATIC FUNCTION [id number] 04:12:00 Test Item Value Reference Range Interpretation [...] 6-55 H 347) Specimen slightly ictericLACTIC ACID, [id number] 03:49:00 Test Item Value Reference Range Interpretation Comments LACTATE BLOOD VENOUS 2.3 mmol/L 0.5-2.2 H Specime n slightly (2) (BEAKER) (test hemolyzed code = 0961) Specimen slightly ictericPT/[id number] 03:47:00 Test Item Value Reference Range Interpretation [...] is 2.5-3.5 for patients wiht mechanical heart valves.[id number] 03:47:00 Test Item Value Reference Range Interpretation Comments FIBRINOGEN LEVEL (BEAKER) (test 252 mg/dl 225-434 code = 658) CBC W/PLT COUNT & AUTO [id number] 03:43:00 Test Item Value Reference Range Interpretation [...] (BEAKER) (test code = 2801) BLOOD GAS, [id number] 00:47:00 Test Item Value Reference Range Interpretation [...] code = 1819) 21.0 % HEMOGLOBIN AND [id number] 00:36:00 Test Item Value Reference Range Interpretation Comments HEMOGLOBIN (BEAKER) (test code = 9.7 GM/DL 11.2-15.7 L 410) HEMATOCRIT (BEAKER) (test code = 29.0 % 34.1-44.9 L 411) CT, [id number] 00:24:00FINAL REPORT EXAM: CT of the abdomen [...] edema cannot be excluded. Signed: Flor Williseport Verified Date/Time: 12/07/2018 00:24:22 RAD, ABDOMEN/KUB, 1 VIEW [id number] 18:47:00Reason for exam:->abdominal distensionShould this be performed [...] Phipps Verified Date/Time: 12/06/2018 18:47:51 Reading Location: [address] Reading Room [id number] 18:17:00 Test Item Value Reference Range Interpretation Comments PHOSPHORUS (BEAKER) 3.0 mg/dL 2.3-4.7 Specimen slightly (test code = 604) hemolyzed BASIC METABOLIC [id number] 18:17:00 Test Item Value Reference Range Interpretation [...] PATIEN TS. RAD, CHEST, 1 VIEW, NON [id number] 18:15:00Reason for exam:->shortness of breathShould this be performed at the bedside?->YesFINAL REPORT History: Shortness of breath Comparison: 12/04/2018 Findings: Interval increase in horizontal linear opacities in the lower lungs bilaterally suggestive of subsegmental atelectasis or atypical pneumonitis. No pleural effusions or pneumothorax are identified. Cardiac shadow normal in size. No acute skeletal abnormalities are identified. Signed: Macey Phippseport Veri fied Date/Time: 12/06/2018 18:15:51 Reading Location: [address] Transitional Reading Room W/PLT COUNT & AUTO [id number] 18:00:00 Test Item Value Reference Range Interpretation [...] mmol/L 0.5-2.2 (test code = 2872) POCT-GLUCOSE [id number] 06:27:00 Test Item Value Reference Range Interpretation Comments POC-GLUCOSE METER 181 mg/dL 70-110 H TESTED AT [facility] 6720 (BEAKER) (test code = ANALI [place] 1538) [address] [id number] 04:38:00 Test Item Value Reference Range Interpretation Comments PHOSPHORUS (BEAKER) 1.4 mg/dL 2.3-4.7 LL Specimen slightly (test code = 604) hemolyzed [id number] 04:33:00 Test Item Value Reference Range Interpretation Comments MAGNESIUM (BEAKER) 1.9 mg/dL 1.6-2.6 Specimen slightly (test code = 627) hemolyzed BASIC METABOLIC [id number] 04:33:00 Test Item Value Reference Range Interpretation [...] APPLICABLE FOR DIALYSIS PATIEN TS. HEPATIC FUNCTION [id number] 04:33:00 Test Item Value Reference Range Interpretation [...] 347) hemolyzed CBC W/PLT COUNT & AUTO [id number] 04:30:00 Test Item Value Reference Range Interpretation [...] 0-1 PERCENT (BEAKER) (test code = 2801) [id number] 04:29:00 Test Item Value Reference Range Interpretation [...] is 2.5-3.5 for patients wiht mechanical heart valves.[id number] 04:29:00 Test Item Value Reference Range Interpretation Comments FIBRINOGEN LEVEL ([facility]) (test 218 mg/dl 225-434 L code = 658) POCT-GLUCOSE [id number] 00:18:00 Test Item Value Reference Range Interpretation Comments POC-GLUCOSE METER 153 mg/dL 70-110 H TESTED AT [place] [address] ([facility]) (test code = [facility] 1538) [address] HEMOGLOBIN AND [id number] 00:17:00 Test Item Value Reference Range Interpretation Comments HEMOGLOBIN (KENNY) (test code = 9.1 GM/DL 11.2-15.7 L 410) HEMATOCRIT ([facility]) (test code = 27.7 % 34.1-44.9 L 411) POCT-GLUCOSE [id number] 18:00:00 Test Item Value Reference Range Interpretation Comments POC-GLUCOSE METER 177 mg/dL 70-110 H TESTED AT [place] [address] ([facility]) (test code = [facility] 1538) [address] BASIC METABOLIC [id number] 13:48:00 Test Item Value Reference Range Interpretation Comments SODIUM (BEAKER) 148 meq/L 136-145 H (test code = [...] S NOT APPLICABLE FOR DIALYSIS PATIEN TS. [id number] 13:45:00 Test Item Value Reference Range Interpretation Comments PHOSPHORUS (BEAKER) (test code = 2.1 mg/dL 2.3-4.7 L 604) HEMOGLOBIN AND [id number] 13:30:00 Test Item Value Reference Range Interpretation Comments HEMOGLOBIN (BEAKER) (test code = 6.9 GM/DL 11.2-15.7 L 410) HEMATOCRIT (BEAKER) (test code = 21.5 % 34.1-44.9 L 411) POCT-GLUCOSE [id number] 12:17:00 Test Item Value Reference Range Interpretation Comments POC-GLUCOSE METER 179 mg/dL 70-110 H TESTED AT [facility] 6720 (BEAKER) (test code = [place] 1538) [id number] CBC W/PLT COUNT & AUTO [id number] 10:50:00 Test Item Value Reference Range Interpretation [...] 3438) Received comment: User comments: Slide comments:POCT-GLUCOSE [id number] 06:14:00 Test Item Value Reference Range Interpretation Comments POC-GLUCOSE METER 173 mg/dL 70-110 H TESTED AT [facility] 6720 (BEAKER) (test code = [place] 1538) [id number] U/S, ABDOMINAL, WITH [id number] 05:32:00Reason for exam:->evaluate portal vein, evaluate biliary system, evaluate for cirrhosisFINAL REPORT INDICATION: evaluate portal vein, evaluate biliary system, evaluate for cirrhosis COMPARISON: None TECHNIQUE: Real-time davis-scale transabdominal and color and spectral Doppler ultrasound. FINDINGS:Liver: Size: 14.4cm. Echogenicity: Increased parenchymal echogenicity.. Masses/lesions: None. Surface Nodularity: Nodular contour.. Intrahepatic bile ducts: Normal. Commonbile duct: 0.4cm. MPV: 0.8cm. Gallbladder: Not identified. [...] contour is severe hepatocellular dysfunction. Small volume intra-abdominalascites. Unremarkable hepatic Doppler. Gallbladder is not identified on this examination. Signed: Carol Abernathy MDReport Verified Date/Time: 12/05/2018 05:32:17 BASIC METABOLIC [id number] 04:35:00 Test Item Value Reference Range Interpretation [...] S NOT APPLICABLE FOR DIALYSIS PATIEN TS. [id number] 04:34:00 Test Item Value Reference Range Interpretation Comments PHOSPHORUS (BEAKER) (test code = 2.0 mg/dL 2.3-4.7 L 604) [id number] 04:34:00 Test Item Value Reference Range Interpretation Comments MAGNESIUM (BEAKER) (test code = 2.1 mg/dL 1.6-2.6 627) HEPATIC FUNCTION [id number] 04:34:00 Test Item Value Reference Range Interpretation [...] code = 549 U/L 6-55 H 347) [id number] 04:15:00 Test Item Value Reference Range Interpretation Comments AMMONIA (BEAKER) (test code = 348) 97 mol/L 18-72 H LACTIC ACID, [id number] 04:10:00 Test Item Value Reference Range Interpretation Comments LACTATE BLOOD VENOUS (2) (BEAKER) 2.6 mmol/L 0.5-2.2 H (test code = 2872) [id number] 03:54:00 Test Item Value Reference Range Interpretation [...] is 2.5-3.5 for patients wiht mechanical heart valves.[id number] 03:54:00 Test Item Value Reference Range Interpretation Comments FIBRINOGEN LEVEL (BEAKER) (test 188 mg/dl 225-434 L code = 658) POCT-GLUCOSE [id number] 00:17:00 Test Item Value Reference Range Interpretation Comments POC-GLUCOSE METER 185 mg/dL 70-110 H TESTED AT [facility] 6720 (BEAKER) (test code = [place] 1538) [id number] HEMOGLOBIN AND [id number] 21:43:00 Test Item Value Reference Range Interpretation Comments HEMOGLOBIN (BEAKER) (test code = 8.1 GM/DL 11.2-15.7 L 410) HEMATOCRIT (BEAKER) (test code = 24.3 % 34.1-44.9 L 411) [id number] 19:32:00 Test Item Value Reference Range Interpretation Comments FERRITIN (BEAKER) (test code = 2039 ng/mL 5-275 H 361) T4, [id number] 18:58:00 Test Item Value Reference Range Interpretation [...] = 3438) Received comment: User comments: Slide comments:[id number] 18:41:00 Test Item Value Reference Range Interpretation Comments PROCALCITONIN (BEAKER) (test code 0.20 ng/mL <0.05 H = 3036) SEPSIS RISK (ng/mL)Low: 0.05-0.50Intermediate: 0.51-2.00High: >=2.01HEPATITIS A ANTIBODY, [id number] 18:27:00 Test Item Value Reference Range Interpretation Comments HEPATITIS A IGG ANTIBODY (BEAKER) Reactive Nonreactive A (test code = 2797) HEPATITIS B SURFACE [id number] 18:26:00 Test Item Value Reference Range Interpretation Comments HEPATITIS B SURFACE ANTIBODY < mIU/mL <8.0 (BEAKER) (test code = 647) TSH/FREE T4 IF [id number] 18:26:00 Test Item Value Reference Range Interpretation Comments THYROID STIMULATING HORMONE 0.08 uIU/mL 0.35-4.94 L (BEAKER) (test code = 772) ALPHA FETOPROTEIN (AFP), TUMOR [id number] 18:26:00 Test Item Value Reference Range Interpretation Comments ALPHA-FETOPROTEIN (BEAKER) (test 2.2 ng/mL <10.0 code = 1094) HEPATITIS A ANTIBODY, [id number] 18:26:00 Test Item Value Reference Range Interpretation Comments HEPATITIS A IGM ANTIBODY (BEAKER) Nonreactive Nonreactive (test code = 498) HEPATITIS B CORE ANTIBODY, [id number] 18:26:00 Test Item Value Reference Range Interpretation Comments HEPATITIS B CORE TOTAL ANTIBODY Nonreactive Nonreactive (BEAKER) (test code = 497) HEPATITIS B SURFACE [id number] 18:23:00 Test Item Value Reference Range Interpretation Comments HEPATITIS B SURFACE ANTIGEN (2) Nonreactive Nonreactive (BEAKER) (test code = 2585) HEPATITIS C [id number] 18:23:00 Test Item Value Reference Range Interpretation Comments HEPATITIS C ANTIBODY (BEAKER) Nonreactive Nonreactive (test code = 367) RAD, CHEST, 1 VIEW, NON [id number] 18:18:00Reason for exam:->hypoxemiaIs the patient ?->NoShould this [...] Palacios MDReport Verified Date/Time: 12/04/2018 18:18:54 ReadingLocation: [facility] B1 C013W Consult Reading Room CBC W/PLT COUNT & AUTO [id number] 18:17:00 Test Item Value Reference Range Interpretation [...] H (test code = 700) COMPREHENSIVE METABOLIC [id number] 18:08:00 Test Item Value Reference Range Interpretation [...] S NOT APPLICABLE FOR DIALYSIS PATIEN TS. [id number] 18:07:00 Test Item Value Reference Range Interpretation Comments PHOSPHORUS (BEAKER) (test code = 2.2 mg/dL 2.3-4.7 L 604) [id number] 18:07:00 Test Item Value Reference Range Interpretation Comments MAGNESIUM (BEAKER) (test code = 2.0 mg/dL 1.6-2.6 627) CHLORIDE, RANDOM [id number] 18:03:00 Test Item Value Reference Range Interpretation Comments CHLORIDE URINE (BEAKER) (test code = 58 meq/L 682) Reference Range: No NormalsCREATININE, RANDOM [id number] 18:03:00 Test Item Value Reference Range Interpretation Comments CREATININE URINE (BEAKER) (test 90.3 mg/dL code = 375) Reference Range: No NormalsPROTEIN, RANDOM [id number] 18:03:00 Test Item Value Reference Range Interpretation Comments PROTEIN, URINE (BEAKER) (test code = 17 mg/dL 0-14 H 1569) SODIUM, RANDOM [id number] 18:03:00 Test Item Value Reference Range Interpretation Comments SODIUM URINE (BEAKER) (test code = < meq/L 243) Reference Range: No [id number] 18:02:00 Test Item Value Reference Range Interpretation [...] code = 2590) RAD, ABDOMEN/KUB, 1 VIEW [id number] 18:00:00Reason for exam:->abdominal distentionShould this be performed [...] MDReport Verified Date/Time: 12/04/2018 18:00:28 Reading Location: [address] Consult Reading Room Electronicallysigned by: MARIO PALACIOS M.D. on 12/04/2018 06:00 PMLACTIC ACID, [id number] 17:59:00 Test Item Value Reference Range Interpretation Comments LACTATE BLOOD VENOUS 5.4 mmol/L 0.5-2.2 H Specime n slightly (2) (BEAKER) (test hemolyzed code = 7542) URINALYSIS W/ REFLEX URINE [id number] 17:57:00 Test Item Value Reference Range Interpretation [...] 1574) Rare SOURCE(BEAKER) (test code = 2795) [id number] 17:57:00 Test Item Value Reference Range Interpretation [...] is 2.5-3.5 for patients wiht mechanical heart valves.[id number] 17:57:00 Test Item Value Reference Range Interpretation Comments FIBRINOGEN LEVEL (BEAKER) (test 224 mg/dl 225-434 L code = 658) BLOOD GAS, [id number] 17:46:00 Test Item Value Reference Range Interpretation [...]
[2022-06-21 11:28] LABS: Absolute Lymphocytes (CBC) 1.6 K/uL (0.7-4.9); Hematocrit 41.6 % (36.0-45.0); Lymphocytes % 33.6 % (15.3-44.8); MCV 95.5 fL (80-100); MPV 9.2 fL (7.6-11.3); RBC Red Blood Cell Count 4.36 M/uL (3.86-4.86)
[2022-06-21 11:47] LABS: Magnesium 2.1 mg/dL (1.6-2.4); Potassium 3.5 mmol/L (3.5-5.1); Troponin High Sensitivity 48.5 pg/mL (<58.9)
--- NOTE | 2022-06-21 13:02 | RAD REPORT ---
EXAM DESCRIPTION: Favio Single View06/21/2022 11:58 am CLINICAL HISTORY: Chest pain COMPARISON: April 2022 FINDINGS: Mild bilateral pulmonary opacities. Heart is mildly enlarged IMPRESSION: These findings may indicate mild CHF
[2022-06-21] MEDS ORDERED: FUROSEMIDE 40 MG TABLET ONE (13:42)
--- NOTE | 2022-06-21 14:42 | EDPHYS ---
Physician Documentation [facility] Name: Kaitlyn Sesay Age: 62 yrs Sex: Female : 1960 Arrival Date: 06/21/2022 Time: 10:19 Bed 15 Private MD: Aren Garduno ED Physician Fran Vaughn HPI: 06/21 10:55 This 62 yrs old Female presents to ER via Ambulatory with complaints of High kb Blood Pressure. 10:55 The patient has elevated blood pressure and discovered this at home. Onset: The kb symptoms/episode began/occurred 6 week(s) ago. Modifying factors: The symptoms are aggravated by activity. Associated signs and symptoms: Pertinent positives: chest pain, headache, Pertinent negatives: dizziness, dyspnea, lightheadedness, nausea, visual changes, vomiting, weakness. Severity of symptoms: At its worst the blood pressure was 210 mm Hg, in the emergency department the blood pressure is unchanged. The patient has experienced similar episodes in the past. The patient has been recently seen by a physician: the patient's primary care provider, with similar presenting complaints, The patient has been recently seen at the [facility] Emergency Department, a couple of weeks ago. Pt reports her blood pressure has been high for the last 6 weeks. Has been here for similar symptoms over the last 6 weeks and was referred back to PCP for medication adjustment for management of htn. Pt reports her PCP is out of the office today so she was told to come to the ER. Reports pressure has maintained around 160/90, but increases over 200 with activity. Reports chest pain that feels like indigestion and headache for the same amount of time. . Historical: - Allergies: 10:29 Azithromycin; 10:29 Cephalexin; 7 10:29 PENICILLINS; jl 10:29 Rocephin; 10:29 Rofecoxib; 10:29 Sulfa (Sulfonamide Antibiotics); jl7 - Home Meds: 10:29 ramipril 5 mg Oral cap 1 cap once daily [Active]; cetirizine 10 mg Oral cap daily jl7 [Active]; amitriptyline 50 mg Oral tab 1 tab once daily [Active]; gabapentin 600 mg Oral Tb24 3 tabs once daily [Active]; levothyroxine 125 mcg cap 1 cap once daily [Active]; pravastatin 40 mg Oral tab 1 tab once daily [Active]; albuterol sulfate 90 mcg/actuation Inhl aepb every 6 hours [Active]; bupivacaine HCl 0.5 % (5 mg/mL) injection soln for pain pump [Active]; carvedilol phosphate 90 mg ER oral once daily [Active]; famotidine 20 mg Oral tab 1 tab once daily [Active]; montelukast 10 mg Oral tab 1 tab once daily [Active]; sufentanil citrate 50 mcg/mL intravenous soln 25 mcg/hr for pain pump [Active]; - PMHx: 10:29 Thyroid problem; liver failure; GI Bleed; Chronic pain; Hypertensive disorder; jl7 Hypercholesterolemia; - Immunization history:: Client reports receiving the 2nd dose of the Covid vaccine. - Social history:: Smoking status: Patient reports the use of cigarette tobacco products, smokes one-half pack cigarettes per day. ROS: 10:52 Constitutional: Negative for fever, chills, and weight loss. kb 10:52 Cardiovascular: Positive for chest pain. 10:52 Neuro: Positive for headache. 10:52 All other systems are negative. Exam: 10:52 Constitutional: This is a well developed, well nourished patient who is awake, alert, kb and in no acute distress. Head/Face: Normocephalic, atraumatic. ENT: Moist Mucous membranes Cardiovascular: Regular rate and rhythm with a normal S1 and S2. No gallops, murmurs, or rubs. No pulse deficits. Respiratory: Respirations even and unlabored. No increased work of breathing. Talking in full sentences Abdomen/GI: Soft, non-tender. No distention Skin: Warm, dry with normal turgor. Normal color. MS/ Extremity: Pulses equal, no cyanosis. Neurovascular intact. Full, normal range of motion. Neuro: Awake and alert, GCS 15, oriented to person, place, time, and situation. Moves all extremities. Normal gait. Psych: Awake, alert, with orientation to person, place and time. Behavior, mood, and affect are within normal limits. 10:52 Constitutional: The patient appears anxious. 11:00 ECG was reviewed by the Attending Physician. kb Vital Signs: 10:25 BP 209 / 81; Pulse 63; Resp 17; Temp 97.7; Pulse Ox 98% ; Pain 0/10; jl7 10:29 Weight 83.91 kg; Height 5 ft. 6 in. (167.64 cm); Pain 7/10; jl7 10:45 BP 181 / 75; Pulse 58; Resp 18; Pulse Ox 97% on R/A; db 11:30 BP 163 / 76; Pulse 53; Resp 16; Pulse Ox 97% on R/A; db 12:00 BP 140 / 91; Pulse 78; Resp 18; Pulse Ox 100% on R/A; db 13:30 BP 154 / 73; Pulse 51; Resp 18; Pulse Ox 18% on R/A; db 14:30 BP 178 / 75; Pulse 49; Resp 18; Pulse Ox 99% on R/A; db 10:29 Body Mass Index 29.86 (83.91 kg, 167.64 cm) jl7 MDM: 10:33 Patient medically screened. kb 10:52 Data reviewed: vital signs, nurses notes. kb 10:53 Differential diagnosis: hypertensive crisis, uncontrolled hypertension. Data kb interpreted: Pulse oximetry: on room air is 98 %. Interpretation: normal. External Records Reviewed: ED noted reviewed from previous 2 visits (05/27 and 06/11). . Care significantly affected by the following chronic conditions: Hypertension. 06/21 10:34 Order name: Basic Metabolic Panel; Complete Time: 11:49 kb 06/21 10:34 Order name: CBC with Diff; Complete Time: 11:30 kb 06/21 10:34 Order name: Magnesium; Complete Time: 11:49 kb 06/21 10:34 Order name: NT PRO-BNP; Complete Time: 11:49 kb 06/21 10:34 Order name: Troponin HS; Complete Time: 11:49 kb 06/21 13:37 Order name: Troponin High Sensitivity; Complete Time: 14:33 kb 06/21 10:34 Order name: XRAY Chest (1 view); Complete Time: 13:05 kb 06/21 10:34 Order name: EKG; Complete Time: 10:34 kb 06/21 10:34 Order name: Cardiac monitoring; Complete Time: 10:58 kb 06/21 10:34 Order name: EKG - Nurse/Tech; Complete Time: 10:58 kb 06/21 10:34 Order name: IV Saline Lock; Complete Time: 10:58 kb 06/21 10:34 Order name: Labs collected and sent; Complete Time: 10:58 kb 06/21 10:34 Order name: O2 Per Protocol; Complete Time: 10:58 kb 06/21 10:34 Order name: O2 Sat Monitoring; Complete Time: 10:58 kb EC:00 Rate is 55 beats/min. Rhythm is regular. QRS Brinson is Normal. VA interval is normal at kb 160 msec. QRS interval is normal at 80 msec. QT interval is normal at 440 msec. Clinical impression: Sinus bradycardia. Administered Medications: 13:44 Drug: LaSIX (furosemide) 40 mg Route: PO; db Disposition: 18:48 Co-signature as Attending Physician, Fran Vaughn DO I was immediately available on-site ms3 in the Emergency Department for consultation in the care of the patient. Disposition Summary: 06/21/22 14:41 Discharge Ordered Location: Home kb Condition: Stable kb Diagnosis - Essential (primary) hypertension kb Followup: kb - With: Emergency Department - When: As needed - Reason: Worsening of condition Followup: kb - With: Private Physician - When: 2 - 3 days - Reason: Recheck today's complaints, Continuance of care, Re-evaluation by your physician Discharge Instructions: - Discharge Summary Sheet kb - Hypertension, Adult, [id number] kb Forms: - Medication Reconciliation Form kb - Thank You Letter kb - Antibiotic Education kb - Prescription Opioid Use kb Signatures: Dispatcher [employer] Candi Moreland, CARMEN-Matthew MORALES-Tyler Solis RN RN Fran Solis DO DO ms3 Brandi Levin RN RN db Corrections: (The following items were deleted from the chart) 10:37 10:29 Home Meds: carvedilol 25 mg Oral tab 1 tab 2 times per day; jl7 jl7 10:37 10:29 Home Meds: fentanyl citrate (PF) 25 mcg/hr intravenous resv for severe pain; Pain jl7 pump; jl7
--- NOTE | 2022-06-21 14:42 | ER ---
Nurse's Notes [facility] Name: Kaitlyn Sesay Age: 62 yrs Sex: Female : 1960 Arrival Date: 06/21/2022 Time: 10:19 Bed 15 Private MD: Aren Garduno Diagnosis: Essential (primary) hypertension Presentation: 06/21 10:25 Chief complaint: Patient states: High BP x 6 weeks, PCP just added Rampril 5mg daily to jl7 current Carvedilol. Reports still unable to get the BP down, systolic 160s, diastolic in the 90s. Coronavirus screen: At this time, the client does not indicate any symptoms associated with coronavirus-19. Ebola Screen: No symptoms or risks identified at this time. Initial Sepsis Screen: Does the patient meet any 2 criteria? No. Patient's initial sepsis screen is negative. Does the patient have a suspected source of infection? No. Patient's initial sepsis screen is negative. Risk Assessment: Do you want to hurt yourself or someone else? Patient reports no desire to harm self or others. Onset of symptoms was May 10, 2022. 10:25 Method Of Arrival: Ambulatory jl7 10:25 Acuity: VIKRAM 3 jl7 Triage Assessment: 10:29 General: Appears in no apparent distress. uncomfortable, Behavior is cooperative, jl7 appropriate for age, anxious. Pain: Complains of pain in ROY Pain currently is 7 out of 10 on a pain scale. Historical: - Allergies: 10:29 Azithromycin; jl7 10:29 Cephalexin; jl7 10:29 PENICILLINS; jl7 10:29 Rocephin; jl7 10:29 Rofecoxib; jl7 10:29 Sulfa (Sulfonamide Antibiotics); jl7 - Home Meds: 10:29 ramipril 5 mg Oral cap 1 cap once daily [Active]; cetirizine 10 mg Oral cap daily jl7 [Active]; amitriptyline 50 mg Oral tab 1 tab once daily [Active]; gabapentin 600 mg Oral Tb24 3 tabs once daily [Active]; levothyroxine 125 mcg cap 1 cap once daily [Active]; pravastatin 40 mg Oral tab 1 tab once daily [Active]; albuterol sulfate 90 mcg/actuation Inhl aepb every 6 hours [Active]; bupivacaine HCl 0.5 % (5 mg/mL) injection soln for pain pump [Active]; carvedilol phosphate 90 mg ER oral once daily [Active]; famotidine 20 mg Oral tab 1 tab once daily [Active]; montelukast 10 mg Oral tab 1 tab once daily [Active]; sufentanil citrate 50 mcg/mL intravenous soln 25 mcg/hr for pain pump [Active]; - PMHx: 10:29 Thyroid problem; liver failure; GI Bleed; Chronic pain; Hypertensive disorder; jl7 Hypercholesterolemia; - Immunization history:: Client reports receiving the 2nd dose of the Covid vaccine. - Social history:: Smoking status: Patient reports the use of cigarette tobacco products, smokes one-half pack cigarettes per day. Screenin:45 [facility] Fall Risk Assessment (Adult) History of falling in the last 3 months, db including since admission No falls in past 3 months (0 pts) Confusion or Disorientation No (0 pts) Intoxicated or Sedated No (0 pts) Impaired Gait No (0 pts) Mobility Assist Device Used No (0 pt) Altered Elimination No (0 pt) Score/Fall Risk Level 0 - 2 = Low Risk Oriented to surroundings, Maintained a safe environment. Abuse screen: Denies threats or abuse. Denies injuries from another. Nutritional screening: No deficits noted. Tuberculosis screening: No symptoms or risk factors identified. Assessment: 11:44 Reassessment: Patient appears in no apparent distress at this time. Patient and/or db family updated on plan of care and expected duration. Pain level reassessed. Patient is alert, oriented x 3, equal unlabored respirations, skin warm/dry/pink. patient states came in for uncontrolled high bp. General: Appears in no apparent distress. comfortable, Behavior is calm, cooperative. Pain: Denies pain. Neuro: No deficits noted. Level of Consciousness is awake, alert, obeys commands, Oriented to person, place, time, situation, Speech is normal. Cardiovascular: No deficits noted. Capillary refill. Respiratory: No deficits noted. Airway is patent Respiratory effort is even, unlabored, Respiratory pattern is regular, symmetrical. GI: No deficits noted. No signs and/or symptoms were reported involving the gastrointestinal system. : No deficits noted. No signs and/or symptoms were reported regarding the genitourinary system. 12:58 Reassessment: Patient appears in no apparent distress at this time. Patient and/or db family updated on plan of care and expected duration. Pain level reassessed. Patient is alert, oriented x 3, equal unlabored respirations, skin warm/dry/pink. 13:30 Reassessment: Patient appears in no apparent distress at this time. Patient and/or db family updated on plan of care and expected duration. Pain level reassessed. Patient is alert, oriented x 3, equal unlabored respirations, skin warm/dry/pink. patient resting. 14:30 Reassessment: Patient appears in no apparent distress at this time. Patient and/or db family updated on plan of care and expected duration. Pain level reassessed. Patient is alert, oriented x 3, equal unlabored respirations, skin warm/dry/pink. Vital Signs: 10:25 BP 209 / 81; Pulse 63; Resp 17; Temp 97.7; Pulse Ox 98% ; Pain 0/10; jl7 10:29 Weight 83.91 kg; Height 5 ft. 6 in. (167.64 cm); Pain 7/10; jl7 10:45 BP 181 / 75; Pulse 58; Resp 18; Pulse Ox 97% on R/A; db 11:30 BP 163 / 76; Pulse 53; Resp 16; Pulse Ox 97% on R/A; db 12:00 BP 140 / 91; Pulse 78; Resp 18; Pulse Ox 100% on R/A; db 13:30 BP 154 / 73; Pulse 51; Resp 18; Pulse Ox 18% on R/A; db 14:30 BP 178 / 75; Pulse 49; Resp 18; Pulse Ox 99% on R/A; db 10:29 Body Mass Index 29.86 (83.91 kg, 167.64 cm) jl7 Vitals: 10:45 Cardiac Rhythm Assessment Regular Sinus rhythm. db ED Course: 10:19 Patient arrived in ED. as 10:19 Aren Garduno MD is Private Physician. as 10:21 Candi Hall FNP-C is PHCP. kb 10:21 Fran Vaughn DO is Attending Physician. kb 10:28 Triage completed. jl7 10:29 Arm band placed on right wrist. jl7 10:46 Brandi Levin, RN is Primary Nurse. db 11:00 Inserted saline lock: 20 gauge in right forearm, using aseptic technique. ,using db aseptic technique. by other staff. 11:46 Allergy band placed. Placed in gown. Bed in low position. Call light in reach. Side db rails up X2. Client placed on continuous cardiac and pulse oximetry monitoring. NIBP monitoring applied. Warm blanket given. 12:00 XRAY Chest (1 view) In Process Unspecified. EDMS 14:56 No provider procedures requiring assistance completed. IV discontinued, intact, jl7 bleeding controlled, No redness/swelling at site. Pressure dressing applied. Administered Medications: 13:44 Drug: LaSIX (furosemide) 40 mg Route: PO; db Medication: 11:44 VIS not applicable for this client. db Outcome: 14:41 Discharge ordered by . carlos 14:56 Discharged to home ambulatory. jlYulia 14:56 Condition: good 14:56 Discharge instructions given to patient, Instructed on discharge instructions, follow up and referral plans. Demonstrated understanding of instructions, follow-up care. 14:57 Patient left the ED. jl7 Signatures: Dispatcher [employer] EDNC Candi Hall, CARMEN-C CARMEN-Nani Infante Jahala, RN RN Brandi Anderson, RN RN db Corrections: (The following items were deleted from the chart) 10:37 10:29 Home Meds: carvedilol 25 mg Oral tab 1 tab 2 times per day; jlYulia jl7 10:37 10:29 Home Meds: fentanyl citrate (PF) 25 mcg/hr intravenous resv for severe pain; Pain jl7 pump; jl7 14:56 14:56 Patient did not have IV access during this emergency room visit. jlYulia jl7
[2022-06-21 15:35] VITALS: TEMP 97.7
[2022-06-21 15:48] VITALS: BP 154/73; O2SAT 18
--- NOTE | 2022-06-23 18:13 | EKG ---
Test Date: 2022-06-21 Test Time: 10:55:53 Soa Engineer: MEASUREMENT RESULTS: Intervals: Rate: 55 AR: 160 QRSD: 80 QT: 460 QTc: 440 [place]: P: 36 AR: 160 QRS: 61 T: 43 INTERPRETIVE STATEMENTS: Sinus bradycardia Otherwise normal ECG Compared to ECG 06/11/2022 11:25:47 Sinus rhythm no longer present Electronically Signed On 06-23-22 18:11:04 GREEN PLUMBER by Michael Chávez
== END 2022-06-21 14:57 | disposition home or self-care (01) ==
LOC: ER 10:16
DX: I10 Essential (primary) hypertension (principal); F17.210 Nicotine dependence, cigarettes, uncomplicated; Z88.0 Allergy status to penicillin; Z88.1 Allergy status to other antibiotic agents; Z88.2 Allergy status to sulfonamides; Z88.3 Allergy status to other anti-infective agents
CPT/HCPCS: 36415; 71045; 80048; 83735; 83880; 84484; 85025; 93005; 99284

== ENCOUNTER 2023-01-31 11:15 | Emergency (ER) | payer OTHER ==
--- OUTSIDE RECORDS SUMMARY | 2023-01-31 11:23 | XMS REPORT | Continuity of Care Document ---
:1960 Author Organization [facility] t Address [address] [place] [address] Care Team Providers Name Role Phone Aren Garduno MD Primary Care Physician [phone] YEISON WHIPPLE Attending Clinician Unavailable Jj Andrea MD Attending Clinician Provider MD, Not In System Attending Clinician Unavailable Sharmin Cavanaugh MA Attending Clinician Unavailable Albaro ONEAL, Judi Posadas Attending Clinician [phone] Macey Gustafson MD Attending Clinician Provider, Unknown Attending Clinician Unavailable Eileen Clay MA Attending Clinician Unavailable Gwen Bryant MD Attending Clinician [phone] Alma San MD Attending Clinician Yevgeniy Liao MA Attending Clinician Unavailable Deonna Gutierres MA Attending Clinician Unavailable Doctor Unassigned, [place] Attending Clinician Unavailable Amanda Carbajal MA Attending Clinician Unavailable Lazaro FIERRO, Katarzyna Attending Clinician Unavailable Zoila Pete Attending Clinician Unavailable Sole MD, Yeison S Attending Clinician Beau Galan CRNA Attending Clinician Samy Malik MD Attending Clinician [phone] Only, Adc Test Attending Clinician Unavailable JJ MISTRY Attending Clinician Unavailable YRN PORTILLO Attending Clinician Unavailable YEISON WHIPPLE Admitting Clinician Unavailable MACEY GUSTAFSON Admitting Clinician Unavailable JJ ANDREA Admitting Clinician Unavailable Tavares Whyte Admitting Clinician Unavailable Yeison Whipple MD Admitting Clinician JJ MISTRY Admitting Clinician Unavailable YRN PORTILLO Admitting Clinician Unavailable Payers Payer Name Policy Type Policy Number Effective Date Expiration Date [place]ad [place] [employer] [id number] 2007 00:00:00 [place] Problems Condition Condition Condition Status Onset Resolution Last Treating Co mments Source Name Details Category Date Date Treatment Clinician Date Lymphadeno Lymphadeno Disease Active Overview : saw Luis, 2-[address] mediastina mediastina 00:00: g of this Hospita l l 00 note l might be different from the original. Added automatic ally from request for surgery [id number] Hepatic Hepatic Disease Recurre [facility] encephalop encephalop nce 01-21 [facility] 00:[facility]: Medical 00 Center Portal Portal Disease Recurre [facility] hypertensi hypertensi nce 8- [facility] on on 00:00: Medical 00 Center Fatty Fatty Disease Active [facility] liver liver 01[facility]21 [facility] Esophageal Esophageal Disease Recurre [facility] varices varices nce 12-05 [facility] Hypoxia Hypoxia Disease Active [facility] 12[facility]05 [facility] Hypernatre Hypernatre Disease Active [facility] jonathan jonathan 12-05 [facility] 00:[facility]: Medical 00 [place] Acute GI Acute GI Disease [facility] bleeding bleeding 12[facility]: Medical 00 [place] Cirrhosis, Cirrhosis, Disease Active [facility] nonalcohol nonalcohol 12-04 [facility] 00:00: Medical 00 Center Acute Acute Disease Active [facility] hepatic hepatic 12-04 encephalop encephalop 00:00: Me dical athy athy 00 Center No known No known Disease Unive rs active active ity of problems problems [facility] Allergies, Adverse Reactions, Alerts Allergy Allergy Status Severity Reaction(s) Onset Inactive Treating Comm ents Source Name Type Date Date Clinician Other Propensi Active Other (See Steroids, M ethodi ty to Comments) 2-[address] adverse 00:00: reaction Hospita reaction 00 of l s palpitati ons and sunburn like rash with hives.Felisha roximatel y 25 years ago, patient unable to recall name of steroid Nsaids Propensi Active Rash Methodi (Non-Kiko ty [...] Rash Rash Method i ycin ty to 06-01 adverse 00:00: Hospita reaction 00 l s to drug Penicill Propensi Active RASH [facility] ins ty to 12-04kes adverse 00:00: Medical reaction 00 Center s [...] Active Swelling [facility] b ty to 7-09 [facility] adverse 00:00: Medical reaction 00 Center s Bee Propensi Active Anaphylaxis 2019- BEE [facility] ty to 12-04 [facility] adverse 00:00: Medical reaction 00 Center s Cephalex Propensi Active Rash 2019-[address] [facility] [facility] in ty to 12-04 [facility] adverse 00:00: Medical reaction 00 Center s Eszopicl Propensi Active Nausea Only, 2019- headach e [facility] one ty to Other (See 12-04 [facility] adverse Comments) 00:00: Medica l reaction 00 Center s Meloxica Propensi Active Swelling 2018- [facility] ty to 12-04 [facility] adverse 00:00: Medical reaction 00 Center s Oxycodon Propensi Active Nausea And 2018- ANYTHING [facility] e ty to Vomiting 12-04 IN THE [facility] adverse 00:00: OXY Medical reaction [address] [facility] [place] Penicill Propensi Active 2019-[address] ins ty to 12-04 [facility] adverse 00:00: Medical reaction 00 [place] Ceftriax Propensi Active Rash 2019-[address] one ty to 12-04 [facility] adverse 00:00: Medical reaction 00 Center s Shrimp Propensi Active Rash 2018- And [facility] ty to 12-04 generaliz [...] INS Class 01-02 ity of 00:00: [place] [facility] PREDNISO DRUG Active Med Swelling Univer s NE INGREDI 01-02 ity of 00:00: [place] 00 Medical Branch SULFA Drug Active Med Rash Univers (SULFONA Class 01-02 ity of MIDE 00:00: [place] ANTIBIOT 00 Medical ICS) Branch Nsaids Propensi Active Swelling 08/10/15 Unive rs (Non-Kiko ty to 01-02 Pt denies ity o f roidal adverse 00:00: allergies [place] Anti-Inf reaction 00 to NSAIDS Med ical lammator s to Branch y Drug) drug Penicill Propensi Active Rash Univer s ins ty to 01-02 ity of adverse 00:00: [place] reaction 00 Medical s to Branch drug Sulfa Propensi Active Rash Univers (Sulfona ty to 01-02 ity of mide adverse 00:00: [place] Antibiot reaction 00 Medica l ics) s to Branch drug Zolpidem Propensi Active Other - See Sleepwal [...] to steroids Branch drug predniso DA Active [facility], 11-12 [place] LYMPH NODE 00:00: d SWELLING 00 [facility] meloxica DA Active [facility] m 11-12 [place] 00:00: d 00 [facility] rofecoxi DA Active [facility] b 11-12 [place] 00:00: d 00 [facility] ceftriax DA Active [facility] one 11-12 [place] sodium 00:00: d 00 Medical Center Cephalex DA Active [facility] in 11-12 [place] Monohydr 00:00: d ate 00 Medical Center Penicill DA Active [facility] ins 11-12 [place] 00:00: d 00 [facility] Sulfa DA Active [facility] (Sulfona 11-12 [place] mide 00:00: d Antibiot Medical ics) Center Shellfis DA Active [facility] h 11-12 [place] 00:00: d 00 Medical Center STEROIDS DA Active [facility]WE[facility]ING [facility] 02-04 [place] 00:00: d 00 Medical Center BEE DA Active [facility] ANAPHYLACTIC [facility] STING 02-01 [place] 00[facility]00: d 00 Medical Center Family History Family Member Diagnosis Comments Start Date Stop Date Source Natural father Anuerysm [facility] Natural father Heart disease [facility] Natural father Hypertension [facility] Other Hypertension [facility] Social History Social Habit Start Date Stop Date Quantity Comments Source Exposure to Not sure University of SARS-CoV-2 (event) [place] [facility] History SDOH [facility] Alcohol Comment Medical C enter History of tobacco Smokes tobacco Me thodist use daily Hospital Gender identity [facility] [place] [facility] Sexual orientation [facility] History SDOH [facility] Alcohol Std Drinks Medica l Center History SDOH [facility] Alcohol Binge Medical Tian ter History of Social 2022-12-26 2022-12-[address] function 00:00:00 00:00:00 Hospital Tobacco use and 2022-10-18 2022-10-18 Smokeless [facility] exposure 00:00:00 00:00:00 tobacco non-user Hospital Cigarettes smoked 2022-06-01 2022-06-01 [facility] current (pack per 00:00:00 00:00:00 [facility] l day) - Reported Cigarette 2022-06-01 2022-06-01 [facility] pack-years 00:00:00 00:00:00 Hospital Alcohol intake 2019-01-21 2019-01-[address] [facility] non-drinker of Medical Ce nter alcohol (finding) History SDOH 2019-01-18 2019-01-18 1 ROSA Dasilva Alcohol Frequency 00:00:00 00:00:00 [facility] Sex Assigned At [address] [facility] snows 00:00:00 00:00:00 [facility] Smoking Status Start Date Stop Date Source Smokes tobacco daily 2022-10-18 00:00:00 [facility] Former smoker 2019-01-18 00:00:00 2019-01-18 00:00:00 [facility] Medications Ordered Filled Start Stop Current Ordering Indication Dosage Frequency Signature Comments Components Source Medication Medication Date Date Medication? Clinician (SIG) Name Name linaCLOtide Yes 290ug QD Take 1 Met hodi (LINZESS) 7-[address] 290 mcg 10:32: (290 mcg Hospit a capsule 44 total) by l mouth daily before breakfast. carvedilol Yes 80mg QD Take 1 Metho di CR (COREG 7-[address] CR) 80 MG 10:32: (80 mg Hospit a 24 hr 44 total) by l capsule mouth daily. amLODIPine Yes 10mg QD Take 1 Metho di (NORVASC) 7-31 tablet (10 st 10 mg 10:32: mg total) Hospita tablet 44 by mouth l nightly. ramipriL 0 Yes 10mg QD Take 1 Methodi (ALTACE) 10 7-[address] MG capsule 10:32: (10 mg Hospi ta 44 total) by l mouth daily. ergocalcife Yes [id number] Q7D Take 1 Me thodi rol 7-[address] (VITAMIN 10:32: (50,000 Hospit a D2) 50,000 44 Units l unit total) by capsule mouth once a week. NEW, NOT STARTED NON Yes continuous Methodi FORMULARY 7-[address] 10:32: PUMPPRIMAR Hospita 44 Y Drug: l Sufentanil ( 50 mcg/ml)SEC ONDARY Drug: Bupivicain e ( 5.0 mg/ml)RESE RVOIR Volume: 1.6 mlCURRENT SETTINGS: 19.0 mlSTEP 1: 12:00 am - 12: 00 am ( 24 hours) : Sufentanil 24.972 mcg / DAY( 1.041 mcg/hr) : Bupivicain e 2.4972 mg /DAY ( 0.1041 mg/hr) Pump model: 8637-20Ser ial number: [id number] sodium 2022- No by Methodi chloride 10-19 05-[address] 0.9% 20:40: 00:00 route Hospita parenteral 01 :00 continuous l solution ly. 37.25 mL with SUfentanil (PF) 50 mcg/mL solution 12.5 mcg, BUPivacaine (PF) 0.5 % (5 mg/mL) solution 62.5 mg fentaNYL 2022- No 25ug Infuse 25 Met hodi 5- 05-[address] 12:35: 00:00 venous Hospita 02 :00 catheter. l Patient wears a pain pump25 mcg/hr via pain pump for chronic back painFills pump every 5 weeks. Next fill date is today 10/17/22 fentaNYL 2022-0 Yes 10ug Infuse 10 Meth pao 1-[address] 15:42: venous Hospita 14 catheter. l fentaNYL 0 Yes 10ug Infuse 10 Meth pao 1-[address] 15:42: venous Hospita 14 catheter. l linaCLOtide 0 Yes 290ug QD Take 1 Met hodi (LINZESS) 1-[address] 290 mcg 15:36: (290 mcg Hospit a capsule 27 total) by l mouth daily before breakfast. linaCLOtide 0 Yes 290ug QD Take 1 Met hodi (LINZESS) 1-[address] 290 mcg 15:36: (290 mcg Hospit a capsule 27 total) by l mouth daily before breakfast. omega 2021-05 Yes TAKE 1 Methodi 3-dha-epa-f 2-[address] tolu oil 300 00:00: MOUTH Hospi ta mg (120 mg- 00 DAILY FOR l 180mg)- HIGH 0 mg CHOLESTERO capsule L omega 2021-05 Yes TAKE 1 Methodi 3-dha-epa-f 2-[address] tolu oil 300 00:00: MOUTH Hospi ta mg (120 mg- 00 DAILY FOR l 180mg)- HIGH 0 mg CHOLESTERO capsule L omega 2021-05 Yes TAKE 1 Methodi 3-dha-epa-f 2-[address] tolu oil 300 00:00: MOUTH Hospi ta mg (120 mg- 00 DAILY FOR l 180mg)- HIGH 0 mg CHOLESTERO capsule L carvediloL [...] l (two) times a day. carvediloL 2021-05 No 25mg Q.5D Take 1 Meth pao (COREG) 25 2-14 05-22 tablet (25 st MG tablet 00:00: 00:00 mg total) Ho spita 00 :00 by mouth 2 l (two) times a [...] mouth l nightly. gabapentin 2021-05 Yes 600mg Q.[id number] Take 1 Methodi (NEURONTIN) 1-[id number] 600 mg 00:00: 3D (600 mg Hospita tablet 00 total) by l mouth 3 (three) times a day. gabapentin 2021-05 Yes 600mg Q.[id number] Take 1 Methodi (NEURONTIN) 1-[id number] 600 mg 00:00: 3D (600 mg Hospita tablet 00 total) by l mouth 3 (three) times a day. gabapentin 2021-05 Yes 600mg Q.[id number] Take 1 Methodi (NEURONTIN) 1-[id number] 600 mg 00:00: 3D (600 [...] IV Medical Infusion, Branch CONTINUOUS , Starting 11/04/19 at 0815, Until Discontinu ed, Routine, PACU [...] 6-08 Starting ity of 0.9 % 13:10: 11/04/19 [place] irrigation 00 at 0810, Medic al [...] 12:39: 11/04/19 [place] (SENSORCAIN 00 at 0739, [facility] all E Until Branch W/EPINEPHRI Discontinu NE) [...] Mon11/04/19 at 0805, SHIVA, Intra-op FENTanyl PF 2020-0 2020- No Intravenou Univers (SUBLIMAZE 11-0308 s, ONCE ity o f (PF)) 12:25: 13:05 INTRA [place] injection 00 :06 PROCEDURE, [facility] Starting Branch 11/04/19 at 0725, Until Mon11/04/19 at 0805, Routine, Intra-op lidocaine 2020-0 2020- No ONCE INTRA U nivers 1% 11-0308 PROCEDURE, ity of (XYLOCAINE) 12:25: 13:05 Starting [place] 100 mg/10 00 :06 11/04/19 [facility] mL (1 %) at 0725, Branch injection Until 11/04/19 at 0805, Routine, Intra-op succinylcho 2020-0 2020- No Intravenou Univers line 11-03-08 s, ONCE ity of (QUELICIN) 12:25: 13:05 INTRA [place] injection 00 :06 PROCEDURE, [facility] Starting Branch 11/04/19 at 0725, Until 11/04/19 at 0805, Routine, Intra-op propofol IV 2020-0 2020- No Intravenou Univers infusion 11-03-08 s, ONCE ity of 12:25: 13:05 INTRA [place] 00 :06 PROCEDURE, Medical Starting Branch 11/04/19 at 0725, Until 11/04/19 at 0805, Routine, Intra-op midazolam 2019-2019- No IV Push, Uni vers (VERSED) 11-03 06-08 ONCE INTRA ity of injection 12:17: 13:05 PROCEDURE, [place] 00 :06 Starting Medical 11/04/19 Branch at 0717, Until 11/04/19 at 0805, Routine, Intra-op lactated 2019- No 1000mL at 20 Unive rs ringers IV 11-03-08 mL/hr, ity of infusion 11:45: 12:23 1,000 mL, Chi as 1,000 mL 00 :00 IV Medical Infusion, Branch ONCE, 1 dose, 11/04/19 at 0645, Routine, DSU Pre-op gabapentin 2019-0 Yes 600mg Take 600 Un roni (NEURONTIN) 6-08 mg by ity of 600 mg 08:38: mouth 3 [place] tablet 28 (three) Medical times Branch daily. Levothyroxi 2019- No 150ug Take 150 Univers ne 10-31-05 mcg by ity of (TIROSINT) 16:53: 00:00 mouth [place] 150 mcg Cap 34 :00 daily. Medica l Branch pravastatin 2019- No 40mg Take 40 mg Univers (PRAVACHOL) 10-31-05 by mouth ity of 40 mg 16:53: 00:00 at [place] tablet 34 :00 bedtime. Medical Branch metoprolol 0 2019- No 100mg Take 100 U nivers succinate 10-31 06-05 mg by ity of XL (TOPROL 16:53: 00:00 mouth [place] XL) 100 mg 34 :00 daily. Medical 24 hr Branch tablet HYDROcodone 2019-0 2020- No 1{tbl} Take 1 Tab Univers -acetaminop 10-31 06-05 by mouth 2 i ty of hen (NORCO) 16:53: 00:00 (two) [place] 10-325 mg 34 :00 times Medical tablet daily. Branch cyclobenzap 2019-0 2019- No 10mg Take 10 mg Univers rine 10-31 06-05 by mouth 2 ity of (FLEXERIL) 16:53: 00:00 (two) [place] 10 mg 34 :00 times Medical tablet daily. Branch diazepam 2019- No 10mg Take 10 mg Un roni (VALIUM) 10 10-3105 by mouth ity of mg tablet 16:53: 00:00 at [place] 34 :00 bedtime. Medical Branch diphenhydrA 2019- No 50mg Take 50 mg Univers MINE 10-3105 by mouth ity of (BENADRYL) 16:53: 00:00 at [place] 25 mg 34 :00 bedtime. Medical capsule Branch aspirin 81 2019- No 81mg Take 81 mg Univers mg EC 10-31 by mouth ity of tablet 16:53: 00:00 daily. [place] 34 :00 Medical Branch lansoprazol 2019- No 15mg Take 15 mg Univers e 10-31 by mouth ity of (PREVACID) 16:53: 00:00 daily. [place] 15 mg 34 :00 Medical capsule Branch ACETAMINOPH 2019- No 1{tbl} Take 1 Tab Univers EN/DIPHENHY 10-31 by mouth ity of DRAMINE 16:53: 00:00 at bedtime Chi as (TYLENOL PM 34 :00 as needed. Me dical ORAL) Branch SUFentanil 2019- No 25ug 25 mcg by Edmund griffiths [...] by mouth ity of tablet 00:00: at [place] 00 bedtime. Medical Branch amitriptyli Yes 25mg Take 25 mg Univers ne 25 mg 5-23 by mouth ity of tablet 00:00: at [place] 00 bedtime. Medical Branch amitriptyli Yes 25mg Take 25 mg Univers ne 25 mg 5-23 by mouth ity of tablet 00:00: at [place] 00 bedtime. Medical Branch amitriptyli Yes 25mg Take 25 mg Univers ne 25 mg 5-23 by mouth ity of tablet 00:00: at [place] 00 bedtime. Medical Branch gabapentin 2018- Yes 600mg Q.[id number] Take [address] (NEURONTIN) 8-26 [id number] mg by L ukes 600 MG 14:11: 3D mouth 3 Medical tablet 41 (three) Center times daily. levothyroxi 2018- Yes 125ug Take [address] ne 8-26 mcg by [facility] (SYNTHROID, 14:11: mouth Medic al LEVOTHROID) 41 Every Center 125 MCG morning on tablet an empty stomach. pravastatin 2018- Yes 40mg QD Take 40 mg CHI [...] Center hours as needed for Pain. meclizine 2018- Yes 12.5mg Take 12.[address] (ANTIVERT) 8-26 mg by [facility] 12.5 mg 14:11: mouth 2 Medical tablet 41 (two) Center times daily as needed. melatonin 2018- Yes QD Take by [facility]I S t 10 mg Tab 8-26 mouth [facility]ukes 14:11: nightly. Medical 41 Center diphenhydrA 2018- Yes 25mg Take [address] MINE 8-26 by mouth [facility] (BENADRYL) 14:11: every 6 Medi all 25 mg 41 (six) Center capsule hours as needed for Itching. gabapentin 2019-0 Yes 600mg Q.[id number] Take [address] (NEURONTIN) 8-26 [id number] mg by L ukes 600 MG 14:11: [...] Center hours as needed for Pain. meclizine 2018-0 Yes 12.5mg Take 12.[address] (ANTIVERT) 8-26 mg by [facility] 12.5 mg 14:11: mouth 2 Medical tablet 41 (two) Center times daily as needed. melatonin 2018-0 Yes QD Take by [facility]I [facility] t 10 mg Tab 8-26 mouth [facility] 14:11: nightly. Medical 41 [place] diphenhydrA 0 Yes 25mg Take [address] MINE 8-26 by mouth [facility] (BENADRYL) 14:11: every 6 Medi all 25 mg 41 (six) Center capsule hours as needed for Itching. gabapentin 2019-0 Yes 600mg Q.[id number] Take [address] (NEURONTIN) 8-26 [id number] mg by L ukes 600 MG 14:11: 3D mouth 3 Medical tablet 41 (three) Center times daily. levothyroxi 2019-0 Yes 125ug Take [address] ne 8-26 mcg by [facility]ukes (SYNTHROID, 14:11: mouth Medic al LEVOTHROID) 41 Every Center 125 MCG morning on tablet an empty stomach. pravastatin 2019 Yes 40mg QD Take 40 mg CHI [...] 8-26 mouth [facility] 14:11: nightly. Medical 41 [place] diphenhydrA 0 Yes 25mg Take [address] MINE 8-26 by mouth [facility] (BENADRYL) 14:11: every 6 Medi all 25 mg 41 (six) Center capsule hours as needed for Itching. gabapentin 0 Yes 600mg Q.[id number] Take [address] (NEURONTIN) 8-26 [id number] mg by L ukes 600 MG 14:11: 3D mouth 3 Medical tablet 41 (three) Center times daily. levothyroxi 20190 Yes 125ug Take [address] ne 8-26 mcg by [facility]ukes (SYNTHROID, 14:11: mouth Medic al LEVOTHROID) 41 Every Center 125 MCG morning on tablet an empty stomach. pravastatin 20190 Yes 40mg QD Take [address] (PRAVACHOL) 8-26 by mouth Luke s 40 MG 14:11: daily. Medical tablet 41 [place] spironolact Yes 50mg Take [address] one 8-26 by mouth [facility] (ALDACTONE) 14:11: every Medic al 50 MG 41 other day. Center tablet furosemide Yes 20mg Take [address] (LASIX) 20 8-26 by mouth [facility] MG tablet 14:11: every Medical 41 other day. Center traMADol 2018-0 Yes 50mg Take [address] [...] capsule hours as needed for Itching. gabapentin Yes 600mg Q.[id number] Take [address] (NEURONTIN) 8-26 [id number] mg by Ward banges 600 MG 14:11: 3D mouth 3 Medical tablet 41 (three) Center times daily. levothyroxi 2019-0 Yes 125ug Take [address] ne 8-26 mcg by [facility]ukes (SYNTHROID, 14:11: mouth Medic al LEVOTHROID) 41 Every Center 125 MCG morning on tablet an empty stomach. pravastatin 0 Yes 40mg QD Take [address] (PRAVACHOL) 8-26 by mouth Luke s 40 MG 14:11: daily. Medical tablet 41 Center spironolact 0 Yes 50mg Take [address] one 8-26 by mouth [facility]ukes (ALDACTONE) 14:11: every Medic al 50 MG 41 other day. [place] tablet furosemide 2019-0 Yes 20mg Take [address] (LASIX) 20 8-26 by mouth [facility]ukes MG tablet 14:11: every Medical 41 other day. Center traMADol 2019-0 Yes 50mg Take [address] (ULTRAM) 50 8-26 by mouth Luke s mg tablet 14:11: every 6 Medic al 41 (six) Center hours as needed for Pain. meclizine 2018-0 Yes 12.5mg Take 12.[address] (ANTIVERT) 8-26 mg by [facility]ukes 12.5 mg 14:11: mouth 2 Medical tablet 41 (two) Center times daily as needed. melatonin 2018-0 Yes QD Take by [facility] t 10 mg Tab 8-26 mouth [facility]ukes 14:11: nightly. [address] diphenhydrA 0 Yes 25mg Take [address] MINE 8-26 by mouth [facility]ukes (BENADRYL) 14:11: every 6 Medi all 25 mg 41 (six) Center capsule hours as needed for Itching. gabapentin 2019-0 Yes 600mg Q.[id number] Take [address] (NEURONTIN) 8-26 [id number] mg by L ukes 600 MG 14:11: 3D mouth 3 Medical tablet 41 (three) Center times daily. levothyroxi 2018-0 Yes 125ug Take [address] ne 8-26 mcg by [facility]ukes (SYNTHROID, 14:11: mouth Medic al LEVOTHROID) 41 Every Center 125 MCG morning on tablet an empty stomach. pravastatin 0 Yes 40mg QD Take [address] (PRAVACHOL) 8-26 by mouth Luke s 40 MG 14:11: daily. Medical tablet 41 [place] spironolact 0 Yes 50mg Take [address] one 8-26 by mouth [facility]ukes (ALDACTONE) 14:11: every Medic al 50 MG 41 other day. [place] tablet furosemide 0 Yes 20mg Take [address] (LASIX) 20 8-26 by mouth [facility]ukes MG tablet 14:11: every Medical 41 other day. [place] traMADol 0 Yes 50mg Take 50 mg [...] mg Tab 8-26 mouth [facility]ukes 14:11: nightly. [address] diphenhydrA 0 Yes 25mg Take [address] MINE 8-26 by mouth [facility]ukes (BENADRYL) 14:11: every 6 Medi all 25 mg 41 (six) Center capsule hours as needed for Itching. lactulose 0 Yes 20g Q.5D Take 30 [facility] [...] with Pste skin topical breakdown. paste lactulose 0 Yes 20g Q.5D Take 30 [facility] S [...] with Pste skin topical breakdown. paste lactulose 0 Yes 20g Q.5D Take 30 [facility] [...] Yes 10mg Take 10 mg Univers rine -02 by mouth 2 ity of (FLEXERIL) 14:44: (two) [place] 10 mg 02 times Medical tablet daily. Branch diazepam Yes 10mg Take 10 mg Uni vers (VALIUM) 10 02 by mouth ity of mg tablet 14:44: at [place] 02 bedtime. Medical Branch diphenhydrA Yes 50mg Take 50 mg Univers MINE 02 by mouth ity of (BENADRYL) 14:44: at [...] daily. Medical 24 hr Branch tablet HYDROcodone 2017 Yes 1{tbl} Take 1 Tab Univers -acetaminop -02 by mouth 2 it y of hen [...] by mouth ity of tablet 14:44: daily. 02 Medical Branch lansoprazol Yes 15mg Take 15 mg Univers e 05-30 by mouth ity of (PREVACID) 14:44: daily. [place] 15 mg Medical capsule Branch SUFentanil Yes 25ug 25 mcg by Un roni in Total 05-30 Intratheca ity o f Volume 14:44: l route 02 every 1 Medical (one) Branch hour. Indication s: Pain pump ACETAMINOPH Yes 1{tbl} Take 1 Tab Univers EN/DIPHENHY -02 by mouth ity of DRAMINE 14:44: at bedtime [place] (TYLENOL PM 01 as needed. Me dical ORAL) Branch pregabalin Yes 75mg Take 75 mg U nivers (LYRICA) 75 -02 by mouth 3 it y of mg [...] 3 [place] tablet 01 (three) Medical times Branch daily. ACETAMINOPH 2017 Yes 1{tbl} Take 1 Tab Univers EN/DIPHENHY -02 by mouth ity of DRAMINE 14:44: at bedtime [place] (TYLENOL PM 01 as needed. Me dical ORAL) Branch pregabalin 20170 Yes 75mg Take 75 mg U nivers (LYRICA) 75 -02 by mouth 3 it y of mg capsule 14:44: (three) [place] 01 times Medical daily. Branch losartan Yes 100mg Take 100 Univ ers (COZAAR) 1-02 mg by ity of 100 mg 14:44: mouth [place] tablet 01 daily. Medical Branch gabapentin 2017-0 Yes 600mg Take 600 Un roni (NEURONTIN) 1-02 mg by ity of 600 mg 14:44: mouth 3 [place] tablet 01 (three) Medical times Branch daily. Immunizations Ordered Immunization Filled Immunization Date Status Commen ts Source Name Name BRITTNEY COVID-19 MRNA 2021-06-09 Completed Meth odist VACCINATION 00:00:00 [facility] COVID-19 2020-08-26 Completed Methodis t MRNA VACCINATION 00:00:00 [facility] COVID-19 2020-07-29 Completed Methodis t MRNA VACCINATION 00:00:00 Hospital Vital Signs Vital Name Observation Time Observation Value Comments Source Systolic blood 2019-11-04 13:35:00 134 mm[Hg] Univer sity [facility] Diastolic blood 2019-11-04 13:35:00 59 mm[Hg] Unive [facility] Heart rate 2019-11-04 13:35:00 84 /min [facility] Respiratory rate 2019-11-04 13:35:00 20 /min General acute hospital Oxygen saturation in 2019-11-04 13:35:00 96 /min [facility] Arterial blood by [facility] [place] [facility] Pulse oximetry Branch Body temperature 2019-11-04 13:05:00 36.5 Julissa [facility] acute hospital Body height 2019-10-25 14:46:00 167.6 cm [facility] Body weight 2019-10-25 14:46:00 87.1 kg [facility] BMI 2019-10-25 14:46:00 31.01 kg/m2 [facility] Respiratory rate 2019-11-04 13:01:00 21 /min General acute hospital Body height 2022-12-26 15:32:00 167.6 cm [facility] Body weight 2022-12-26 15:32:00 81.012 kg [facility] BMI 2022-12-26 15:32:00 28.83 kg/m2 [facility] Systolic blood 2022-10-19 01:00:00 113 mm[Hg] [facility] pressure Diastolic blood 2022-10-19 01:00:00 58 mm[Hg] [facility] pressure Heart rate 2022-10-19 01:00:00 52 /min [facility] Respiratory rate 2022-10-19 01:00:00 23 /min [facility] Oxygen saturation in 2022-10-19 01:00:00 98 /min [facility] Arterial blood by Pulse oximetry Body temperature 2022-10-18 22:05:00 35.67 Julissa [facility] Systolic blood 2022-06-06 15:38:00 146 mm[Hg] [facility] pressure Diastolic blood 2022-06-06 15:38:00 77 mm[Hg] [facility] pressure Heart rate 2022-06-06 15:38:00 55 /min [facility] Body temperature 2022-06-06 15:38:00 36.5 Julissa [facility] Body height 2022-06-06 15:38:00 165.1 cm [facility] Body weight 2022-06-06 15:38:00 84.369 kg [facility] BMI 2022-06-06 15:38:00 30.95 kg/m2 [facility] Oxygen saturation in 2022-06-06 15:38:00 97 /min [facility] Arterial blood by Pulse oximetry Procedures Procedure Date / Time Performing Clinician Source Performed EGD-EXTERNAL 2022-12-26 00:00:00 Provider, Not In [facility] ospital System CV SELECTIVE CORONARY 2022-10-18 21:46:59 Sj [facility] ANGIOGRAPHY ECG PRE/POST OP 2022-10-18 17:00:[address] CARDIAC OVERREAD 2022-10-06 18:40:39 Macey Gustafson [facility] CV CTA CORONARY ARTERIES 2022-10-06 18:39:14 Macey Gustafson [facility] W CONTRAST AND FFR POC CREATININE 2022-10-06 18:22:00 Macey Gustafson spital ESTIMATED GFR 2022-10-06 18:22:00 Macey Gustafson spichas FLOW CYTOMETRY EVALUATION 2022-09-01 20:00:00 Jj Andrea [facility] XR CHEST 1 VW PORTABLE 2022-09-01 18:05:00 Jj Andrea [facility] TISSUE CULTURE 2022-09-01 17:19:00 CailinJj tadeo [facility] CULTURE 2022-09-01 17:19:00 Jj Andrea [facility] GRAM STAIN 2022-09-01 17:19[facility]00 [facility] 2022-09-01 17:19[facility]00 [facility] 2022-09-01 17:19:00 [facility] FUNGUS CULTURE 2022-09-01 17:19:00 [facility] CYTOLOGY 2022-09-01 17:05:00 [facility] spital (NON-GYNECOLOGICAL) REQUEST SD AN ELECTIVE 2022-09-01 16:38:00 [facility] spital ENDOTRACHEAL AIRWAY BRONCHOSCOPY 2022-09-01 16:14:00 [facility] spital US, ENDOBRONCHIAL 2022-09-01 16:14:00 [facility] CBC WITH PLATELET AND 2022-09-01 15:29:00 [facility] DIFFERENTIAL M. PARTIAL THROMBOPLASTIN 2022-09-01 15:29:00 [facility] TIME (PTT) M. PROTHROMBIN TIME WITH INR 2022-09-01 15:29:00 [facility]. BASIC METABOLIC PANEL 2022-09-01 15:29:00 [facility] M. ESTIMATED GFR 2022-09-01 15:29:00 [facility]. ECG 12-LEAD 2022-09-01 15:27:59 Jj Andrea [facility] spital TEST NUC 2017 2022-08-15 00:00:00 Provider, Not In [facility] CBC WITH PLATELET AND 2022-07-18 18:05:00 [facility] DIFFERENTIAL COMPREHENSIVE METABOLIC 2022-07-18 18:05:00 [facility] PANEL PROTHROMBIN TIME WITH INR 2022-07-18 18:05:00 [facility] PARTIAL THROMBOPLASTIN 2022-07-18 18:05:00 Jj Andrea [facility] TIME (PTT) ESTIMATED GFR 2022-07-18 18:05:00 Jj Andrea spital EXTERNAL PROVIDER RECORDS 2022-07-07 06:01:00 Doctor Unassigned, [facility] FL ESOPHAGRAM DOUBLE 2022-06-29 20:41:52 Jj Andrea [facility] CONTRAST US AXILLA RIGHT 2022-06-29 19:18:59 Jj Andrea spital PET CT SKULL BASE TO MID 2022-06-29 18:49:08 Jj Andrea [facility] THIGH POC GLUCOSE 2022-06-29 17:14:00 Jj Andrea spital CBC WITH PLATELET AND 2022-06-06 17:58:00 Jj Andrea [facility] DIFFERENTIAL COMPREHENSIVE METABOLIC 2022-06-06 17:58:00 jJ Andrea [facility] PANEL PROTHROMBIN TIME WITH INR 2022-06-06 17:58:00 Jj Andrea [facility] PARTIAL THROMBOPLASTIN 2022-06-06 17:58:00 Jj Andrea [facility] TIME (PTT) ESTIMATED GFR 2022-06-06 17:58:00 Jj Andrea spital US HEAD OR NECK LIMITED 2022-05-24 00:00:00 Provider, Not In [facility] System CT CHEST W CONTRAST 2022-05-24 00:00:00 Provider, Not In [facility] System CT SOFT TISSUE NECK W 2022-05-24 00:00:00 Provider, Not In [facility] CONTRAST System CT CHEST EXTERNAL STUDY 2022-04-18 16:53:31 Jj Andrea [facility] US NECK EXTERNAL STUDY 2022-04-18 16:16:45 Zully [facility] CT NECK EXTERNAL STUDY 2022-03-23 15:04:00 Jj Andrea [facility] INTUBATION 2019-11-04 12:45:34 Mendez Tate [facility] DAY SURGERY - ADC 2019-11-04 05:01:00 Doctor Unassigned, [facility] [place] [facility] PHYSICIAN ORDERS 2019-10-28 05:01:00 Doctor Unassigned, [facility] Plan of Care Planned Activity Planned Date Details Comments Source Future Scheduled 2023-01-27 Screening for [facility] Test 13:10:31 malignant neoplasm of colon (procedure) [code = 836356488] Future Scheduled 2023-01-27 Screening for [facility] Test 13:10:31 malignant neoplasm of colon (procedure) [code = 752202633] Future Scheduled 2023-01-27 [facility] Test 13:10:31 malignant neoplasm of colon (procedure) [code = 600384772] Future Scheduled 2023-01-27 Pneumococcal Vaccine: [facility] Test 13:10:31 Pediatrics (0 to 5 Years) and At-Risk Patients (6 to 64 Years) (1 - PCV) [code = Pneumococcal Vaccine: Pediatrics (0 to 5 Years) and At-Risk Patients (6 to 64 Years) (1 - PCV)] Future Scheduled 2023-01-27 Hepatitis C screening [facility] Test 13:10:31 (procedure) [code = 221169634] Future Scheduled 2023-01-27 Screening for [facility] Test 13:10:31 malignant neoplasm of cervix (procedure) [code = 514344341] Future Scheduled 2023-01-27 BREAST CANCER [facility] Test 13:10:31 SCREENING [code = BREAST CANCER SCREENING] Future Scheduled 2023-01-27 Screening for [facility] Test 13:10:31 malignant neoplasm of colon (procedure) [code = 343021786] Future Scheduled 2023-01-27 Screening for [facility] Test 13:10:31 malignant neoplasm of colon (procedure) [code = 339484437] Future Scheduled 2023-01-27 SHINGLES VACCINES (1 [facility] Test 13:10:31 of 2) [code = SHINGLES VACCINES (1 of 2)] Future Scheduled 2023-01-27 HEPATITIS B VACCINES [facility] Test 13:10:31 (1 of 3 - Risk 3-dose series) [code = HEPATITIS B VACCINES (1 of 3 - Risk 3-dose series)] Future Scheduled 2023-01-27 COVID-19 VACCINE (4 - [facility] Test 13:10:31 Moderna series) [code = COVID-19 VACCINE (4 - Moderna series)] Future Scheduled 2023-01-27 INFLUENZA VACCINE (#1) [facility] Test 13:10:31 [code = INFLUENZA VACCINE (#1)] Future Scheduled 2022-06-21 COVID-19 VACCINE (#1) [facility] Test 10:19:33 [code = COVID-19 VACCINE (#1)] Future Scheduled 2022-06-21 Pneumococcal Vaccine: [facility] Test 10:19:33 Pediatrics (0 to 5 Years) and At-Risk Patients (6 to 64 Years) (1 - PCV) [code = Pneumococcal Vaccine: Pediatrics (0 to 5 Years) and At-Risk Patients (6 to 64 Years) (1 - PCV)] Future Scheduled 2022-06-21 Hepatitis C screening [facility] Test 10:19:33 (procedure) [code = 622815146] Future Scheduled 2022-06-21 Screening for [facility] Test 10:19:33 malignant neoplasm of cervix (procedure) [code = 159665782] Future Scheduled 2022-06-21 BREAST CANCER [facility] Test 10:19:33 SCREENING [code = BREAST CANCER SCREENING] Future Scheduled 2022-06-21 COLONOSCOPY SCREENING [facility] Test 10:19:33 [code = COLONOSCOPY SCREENING] Future Scheduled 2022-06-21 Screening for [facility] Test 10:19:33 malignant neoplasm of lung (procedure) [code = 362197444] Future Scheduled 2022-06-21 SHINGLES VACCINES (1 [facility] Test 10:19:33 of 2) [code = SHINGLES VACCINES (1 of 2)] Future Scheduled 2022-06-21 HEPATITIS B VACCINES [facility] Test 10:19:33 (1 of 3 - Risk 3-dose series) [code = HEPATITIS B VACCINES (1 of 3 - Risk 3-dose series)] Future Scheduled 2022-06-21 INFLUENZA VACCINE [facility] Test 10:19:33 [code = INFLUENZA VACCINE] Future Scheduled 2022-06-10 COVID-19 VACCINE (#1) [facility] Test 12:48:44 [code = COVID-19 VACCINE (#1)] Future Scheduled 2022-06-10 Pneumococcal Vaccine: [facility] Test 12:48:44 Pediatrics (0 to 5 Years) and At-Risk Patients (6 to 64 Years) (1 - PCV) [code = Pneumococcal Vaccine: Pediatrics (0 to 5 Years) and At-Risk Patients (6 to 64 Years) (1 - PCV)] Future Scheduled 2022-06-10 Hepatitis C screening [facility] Test 12:48:44 (procedure) [code = 446818967] Future Scheduled 2022-06-10 Screening for [facility] Test 12:48:44 malignant neoplasm of cervix (procedure) [code = 259375224] Future Scheduled 2022-06-10 BREAST CANCER [facility] Test 12:48:44 SCREENING [code = BREAST CANCER SCREENING] Future Scheduled 2022-06-10 COLONOSCOPY SCREENING [facility] Test 12:48:44 [code = COLONOSCOPY SCREENING] Future Scheduled 2022-06-10 Screening for [facility] Test 12:48:44 malignant neoplasm of lung (procedure) [code = 183182451] Future Scheduled 2022-06-10 SHINGLES VACCINES (1 [facility] Test 12:48:44 of 2) [code = SHINGLES VACCINES (1 of 2)] Future Scheduled 2022-06-10 HEPATITIS B VACCINES [facility] Test 12:48:44 (1 of 3 - Risk 3-dose series) [code = HEPATITIS B VACCINES (1 of 3 - Risk 3-dose series)] Future Scheduled 2022-06-10 INFLUENZA VACCINE [facility] Test 12:48:44 [code = INFLUENZA VACCINE] Encounters Start End Encounter Admission Attending Care Care Encounter Source Date/Time Date/Time Type Type Clinicians Facility Department ID 2021-03-25 Outpatient [facility] [id number] Univers 23:02:16 [facility] 2022-12-26 2022-12-26 Telemedici Zully 1.2.840.1 [id number] Methodi 10:30:00 11:06:04 geovani Gardner 19949.1.[address] 3.430.2.7 Hospit a .3.651330 l .8 2022-12-26 2022-12-26 Outpatient ZULLY [facility] [id number] [place] 00:00:00 00:00:00 JJ Carbajal [facility] 2022-12-26 2022-12-26 Orders Provider, 1.2.840.1 [id number] 2100 [id number] Methodi 00:00:00 00:00:00 Only [place] 46841.1.[address] System 3.430.2.7 Hospit a .3.400092 l .8 2022-12-13 2022-12-13 Telephone Cavanaugh, 1.2.840.6 [id number] 512 [id number] Methodi 00:00:00 00:00:[address] 3.430.2.7 Hospit a .3.314960 l .8 2022-12-09 2022-12-09 Telephone Albaro, 1.2.840.1 [id number] Methodi 00:00:00 00:00:00 Judi Posadas 85912.1.1 968 s t 3.430.2.7 Hospit a .3.001047 l .8 2022-11-10 2022-11-10 Telephone Albaro, 1.2.840.1 [id number] Methodi 00:00:00 00:00:00 Judi Posadas 53031.1.1 412 s t 3.430.2.7 Hospit a .3.445463 l .8 2022-10-18 2022-10-18 Hospital Macey Gustafson 1.2.840.1 [id number] 21 [id number] Methodi 11:28:00 20:40:[address] 3.430.2.7 Hospit a .3.947252 l .8 2022-10-18 2022-10-18 Surgery Macey Gustafson 1.2.840.1 [id number] Methodi 16:00:00 17:25:[address] 3.430.2.7 Hospit a .3.961394 l .8 2022-10-18 2022-10-18 Outpatient MACEY GUSTAFSON [facility] 021 2100 [id number] [place] 00:00:00 00:00:[address] 2022-10-18 2022-10-18 Travel 1.2.840.1 1.2.952.002 0056 061015 Methodi 00:00:00 00:00:[address] 3.430.2.7 0.2.7.3.698 Ho spita .3.152461 084.8 l .8 2022-10-17 2022-10-17 Documentat Provider, 1.2.840.1 [id number] 2 [id number] Methodi 00:00:00 00:00:00 ion Unknown 81348.1.[address] 3.430.2.7 Hospit a .3.503172 l .8 2022-10-06 2022-10-06 [facility] Macey 1.2.840.1 [id number] 21 [id number] Methodi 13:40:38 23:59:[address] 3.430.2.7 Hospit a .3.840766 l .8 2022-10-06 2022-10-06 [facility] Macey 1.2.840.1 [id number] 21 [id number] Methodi 12:43:16 13:39:[address] 3.430.2.7 Hospit a .3.748585 l .8 2022-10-06 2022-10-06 Outpatient SJMACEY Tellez [facility] 2100 [id number] [place] 00:00:00 00:00:[address] 2022-10-06 2022-10-[address] [facility] 2100 [id number] [place] 00:00:00 00:00:[address] 2022-10-05 2022-10-05 Travel 1.2.840.1 1.2.875.898 2945 [id number] Methodi 00:00:00 00:00:[address] 3.430.2.7 0.2.7.3.698 Ho spita .3.881952 084.8 l .8 2022-09-26 2022-09-26 Travel 1.2.840.1 1.2.124.915 1710 [id number] Methodi 00:00:00 00:00:[address] 3.430.2.7 0.2.7.3.698 Ho spita .3.452070 084.8 l .8 2022-09-23 2022-09-23 [facility] Macey Gustafson 1.2.840.1 [id number] 2 [id number] Methodi 00:00:00 00:00:[address] 3.430.2.7 Hospit a .3.004490 l .8 2022-09-16 2022-09-16 Orders Obed, 1.2.840.1 [id number] 030 [id number] Methodi 00:00:00 00:00:00 Only Eileen 97502.1.[address] 3.430.2.7 Hospit a .3.897439 l .8 2022-09-01 2022-09-01 [facility] 1.2.840.1 [id number] 2100 [id number] Methodi 08:49:00 15:40:00 Encounter Ray [address]489.1.[address] 3.430.2.7 Hospit a .3.201920 l .8 2022-09-01 2022-09-01 [facility] 1.2.840.1 [id number] 80971 [id number] Methodi 13:10:00 15:30:[address] 3.430.2.7 Hospit a .3.401122 l .8 2022-09-01 2022-09-01 Anesthesia Gwen Bryant 1.2.840.1 [id number] Methodi 11:12:00 12:51:00 Event Alma San 17310.1.[address] 3.430.2.7 Hospit a .3.591728 l .8 2022-09-01 2022-09-01 Outpatient [facility] 021 [id number] [place] 00:00:00 00:00:[address] RAY [address] 2022-09-01 2022-09-01 Travel 1.2.840.1 1.2.007.834 7256 089140 Methodi 00:00:00 00:00:[address] 3.430.2.7 0.2.7.3.698 Ho spita .3.128894 084.8 l .8 2022-08-31 2022-08-31 [facility] 1.2.840.1 [id number] Methodi 00:00:00 00:00:00 Judi Crenshaw. 27967.1.1 310 s t 3.430.2.7 Hospit a .3.521254 l .8 2022-08-30 2022-08-30 Telephone Chipedro pabloa, 1.2.840.7 [id number] 21 [id number] Methodi 00:00:00 00:00:[address] 3.430.2.7 Hospit a .3.847656 l .8 2022-08-29 2022-08-29 Prep for [facility], 1.2.840.1 [id number] 2 [id number] Methodi 00:00:00 00:00:00 Surgery Judi Crenhsaw. 56805.1.1 682 s t 3.430.2.7 Hospit a .3.712957 l .8 2022-08-19 2022-08-19 Telephone Obed, 1.2.840.1 [id number] 2 [id number] Methodi 00:00:00 00:00:[address] 3.430.2.7 Hospit a .3.673535 l .8 2022-08-15 2022-08-15 Orders Provider, 1.2.840.1 [id number] 2099 [id number] Methodi 00:00:00 00:00:00 Only Not In 47915.1.[address] System 3.430.2.7 Hospit a .3.430488 l .8 2022-08-10 2022-08-10 Telephone [place], 1.2.840.3 [id number] 21 [id number] Methodi 00:00:00 00:00:[address] 3.430.2.7 Hospit a .3.563641 l .8 2022-08-05 2022-08-05 Telephone Zully, 1.2.840.9 [id number] 21 [id number] Methodi 00:00:00 00:00:[address] 3.430.2.7 Hospit a .3.783709 l .8 2022-07-20 2022-07-20 Telephone Keshawn, 1.2.840.1 [id number] 2099 [id number] Methodi 00:00:00 00:00:[address] 3.430.2.7 Hospit a .3.962344 l .8 2022-07-20 2022-07-20 Telephone Keshawn, 1.2.840.1 [id number] 2099 [id number] Methodi 00:00:00 00:00:[address] 3.430.2.7 Hospit a .3.793879 l .8 2022-07-19 2022-07-19 Telephone Zully, 1.2.840.6 [id number] 21 [id number] Methodi 00:00:00 00:00:[address] 3.430.2.7 Hospit a .3.141875 l .8 2022-07-18 2022-07-18 Office Zully, 1.2.840.1 [id number] [id number] Methodi 10:30:00 12:17:52 Visit Ray 90866.1.[address] 3.430.2.7 Hospit a .3.340250 l .8 2022-07-18 2022-07-18 Lab Zully, 1.2.840.1 [id number] 79537 19909 Methodi 11:55:00 12:00:[address] 3.430.2.7 Hospit a .3.501327 l .8 2022-07-18 2022-07-18 [facility] [id number] [place] 00:00:00 00:00:00 RAY [address] 2022-07-18 2022-07-18 Outpatient ZULLY, [facility] [id number] 2120 [place] 00:00:00 00:00:00 RAY [address] 2022-07-18 2022-07-18 Travel 1.2.840.1 1.2.633.422 6949 859351 Methodi 00:00:00 00:00:[address] 3.430.2.7 0.2.7.3.698 Ho spita .3.952772 084.8 l .8 2022-07-14 2022-07-14 Abstract Nenita, 1.2.840.1 [id number] 2099 [id number] Methodi 00:00:00 00:00:[address] 3.430.2.7 Hospit a .3.004843 l .8 2022-07-07 2022-07-07 Orders Doctor JUAN A 1.2.840.114 [id number] 742 [facility] 00:00:00 00:00:00 Only Unassigned, YEIMY 350.1.13.10 ity [place] [facility] 4.2.7.2.686 Chi as 080.9077448 [place] [address] Branch 2022-07-05 2022-07-05 Telephone Glazer, 1.2.840.0 [id number] 855 [id number] Methodi 00:00:00 00:00:00 Amadna Posadas 34549.1.[address] 3.430.2.7 Hospit a .3.327200 l .8 2022-06-29 2022-06-29 [facility], 1.2.840.1 [id number] 2099 [id number] Methodi 21:07:05 23:59:00 Encounter Ray [address]28.1.[address] 3.430.2.7 Hospit a .3.090609 l .8 2022-06-29 2022-06-29 [facility], 1.2.840.1 [id number] 2100 [id number] Methodi 14:51:33 21:06:00 Encounter Ray 23707.1.[address] 3.430.2.7 Hospit a .3.830158 l .8 2022-06-29 2022-06-29 [facility], 1.2.840.1 [id number] 2099 [id number] Methodi 14:45:21 14:50:00 Encounter Ray [address]261.1.[address] 3.430.2.7 Hospit a .3.137347 l .8 2022-06-29 2022-06-29 [facility], 1.2.840.1 [id number] 2099 [id number] Methodi 14:02:22 14:44:00 Encounter Ray [address]279.1.[address] 3.430.2.7 Hospit a .3.217571 l .8 2022-06-29 2022-06-29 [facility], 1.2.840.1 [id number] 2099 [id number] Methodi 12:42:51 14:01:00 Encounter Ray [address]66.1.[address] 3.430.2.7 Hospit a .3.467527 l .8 2022-06-29 2022-06-29 [facility], 1.2.840.1 [id number] 2099 [id number] Methodi 11:00:00 12:41:00 Encounter Ray [address]1918.1.[address] 3.430.2.7 Hospit a .3.946911 l .8 2022-06-29 2022-06-29 [facility] [id number] 8068 [place] 00:00:00 00:00:00 RAY 923 Method i 2022-06-29 2022-06-29 Outpatient [facility] [id number] 6687 [place] 00:00:00 00:00:00 RAY 921 Method i 2022-06-29 2022-06-29 Outpatient [facility] [id number] 3717 [place] 00:00:00 00:00:00 RAY 504 Method i 2022-06-29 2022-06-29 Outpatient [facility] [id number] 1319 [place] 00:00:00 00:00:00 RAY 511 Method i 2022-06-29 2022-06-29 [facility] [id number] 3159 [place] 00:00:00 00:00:00 RAY [address] 2022-06-29 2022-06-29 Outpatient ZULLY [facility] [id number] 3309 [place] 00:00:00 00:00:00 RAY [address] 2022-06-29 2022-06-29 Orders Zully, 1.2.840.1 [id number] Methodi 00:00:00 00:00:00 Only Ray 79112.1.[address] 3.430.2.7 Hospit a .3.172104 l .8 2022-06-29 2022-06-29 Travel 1.2.840.1 1.2.895.720 0749 142946 Methodi 00:00:00 00:00:[address] 3.430.2.7 0.2.7.3.698 Ho spita .3.444511 084.8 l .8 2022-06-15 2022-06-15 Travel 1.2.840.1 1.2.214.019 7489 141947 Methodi 00:00:00 00:00:[address] 3.430.2.7 0.2.7.3.698 Ho spita .3.107184 084.8 l .8 2022-06-15 2022-06-15 Travel 1.2.840.1 1.2.020.822 5468 141947 Methodi 00:00:00 00:00:[address] 3.430.2.7 0.2.7.3.698 Ho spita .3.724549 084.8 l .8 2022-06-14 2022-06-14 Telephone Lazaro, 1.2.840.1 [id number] Methodi 00:00:00 00:00:[address] 3.430.2.7 Hospit a .3.776131 l .8 2022-06-14 2022-06-14 Telephone Lazaro, 1.2.840.1 [id number] 2100 [id number] Methodi 00:00:00 00:00:[address] 3.430.2.7 Hospit a .3.571757 l .8 2022-06-10 2022-06-10 Orders Obed, 1.2.840.1 [id number] Methodi 00:00:00 00:00:00 Only Eileen 42685.1.[address] 3.430.2.7 Hospit a .3.288670 l .8 2022-06-10 2022-06-10 Orders Obed 1.2.840.1 [id number] 124 [id number] Methodi 00:00:00 00:00:00 Only Eileen 99661.1.[address] 3.430.2.7 Hospit a .3.619916 l .8 2022-06-07 2022-06-07 Transcribe [place], 1.2.840.1 [id number] 21 [id number] Methodi 00:00:00 00:00:00 Orders Ray 93040.1.[address] 3.430.2.7 Hospit a .3.561244 l .8 2022-06-07 2022-06-07 Orders [place], 1.2.840.1 [id number] 676 2919398 Methodi 00:00:00 00:00:00 Only Eileen 67568.1.[address] 3.430.2.7 Hospit a .3.528980 l .8 2022-06-07 2022-06-07 Transcribe [place], 1.2.840.1 [id number] 81103719 Methodi 00:00:00 00:00:00 Orders Ray 08455.1.[address] 3.430.2.7 Hospit a .3.084677 l .8 2022-06-07 2022-06-07 Orders [place], 1.2.840.1 710050807 018 8326903 Methodi 00:00:00 00:00:00 Only Eileen 77341.1.[address] 3.430.2.7 Hospit a .3.029413 l .8 2022-06-06 2022-06-06 Office [facility], 1.2.840.1 590838777 61190 Methodi 09:30:00 11:52:43 Visit Ray 91634.1.[address] 3.430.2.7 Hospit a .3.205539 l .8 2022-06-06 2022-06-06 Office [facility], 1.2.840.1 [id number] 21001 30332 Methodi 09:30:00 11:52:43 Visit Ray 30645.1.[address] 3.430.2.7 Hospit a .3.428279 l .8 2022-06-06 2022-06-06 Lab [facility], 1.2.840.1 057728157 92857 Methodi 11:40:00 11:45:[address] 3.430.2.7 Hospit a .3.501704 l .8 2022-06-06 2022-06-06 Lab [facility], 1.2.840.1 953717046 21001 46420 Methodi 11:40:00 11:45:[address] 3.430.2.7 Hospit a .3.216967 l .8 2022-06-06 2022-06-06 Travel 1.2.840.1 1.2.487.780 5601 141244 Methodi 00:00:00 00:00:[address] 3.430.2.7 0.2.7.3.698 Ho spita .3.650282 084.8 l .8 2022-06-06 2022-06-06 Travel 1.2.840.1 1.2.932.680 5196 325397 Methodi 00:00:00 00:00:[address] 3.430.2.7 0.2.7.3.698 Ho spita .3.011067 084.8 l .8 2022-06-01 2022-06-01 Abstract [place], 1.2.840.1 217315792 10774034 Methodi 00:00:00 00:00:[address] 3.430.2.7 Hospit a .3.822243 l .8 2022-06-01 2022-06-01 Abstract [place], 1.2.840.1 849157465 09755555 Methodi 00:00:00 00:00:[address] 3.430.2.7 Hospit a .3.954960 l .8 2022-05-24 2022-05-24 Orders Provider, 1.2.840.1 542153417 2100 151619 Methodi 00:00:00 00:00:00 Only Not [place] 27574.1.[address] System 3.430.2.7 Hospit a .3.968074 l .8 2022-05-24 2022-05-24 Orders Provider, 1.2.840.1 621367252 2100 011123 Methodi 00:00:00 00:00:00 Only Not In 11626.1.[address] System 3.430.2.7 Hospit a .3.172763 l .8 2022-04-18 2022-04-18 Outpatient Zoila Pina [facility] RADI LA00 [id number] [facility] 09:37:00 09:37:00 08 [facility] 2022-03-23 2022-03-23 Outpatient Zoila Pina [facility] RADI LA00 [id number] [facility] 08:31:00 08:31:00 38 [facility] 2019-11-04 2019-11-04 [facility] 1.2.840.114 [id number] [facility] 06:03:00 08:38:00 Encounter Yeison Aparicio 350.1.13.10 [place] [id number] [address] 2019-11-04 2019-11-04 Anesthesia Beau Galan [facility] 1.2.840.11 4 [id number] Univers 07:23:00 08:05:00 Samy Malik 35 0.1.13.10 it[place] [id number] [facility] [address] 2019-11-04 2019-11-04 Orders Doctor JUAN A 1.2.840.114 [id number] Univers 00:00:00 00:00:00 Only Unassigned, YEIMY 350.1.13.10 [facility] 4.2.7.2.686 Chi as [id number] [address] 2019-11-01 2019-11-01 Outpatient Bj [facility] [id number] Univers 09:15:00 09:15:00 YEISON ity [facility] 2019-11-01 2019-11-01 Laboratory Only, Adc Test [facility] 1.2.840. 114 [id number] Univers 08:58:47 09:13:47 Only Yeison Whipple 350.1.13.1 0 [place] [id number] N[place] dical [facility] 353 [facility] 2019-10-28 2019-10-28 Outpatient Bj [facility] [id number] Univers 09:30:00 09:30:00 YEISON ity [facility] 2019-10-28 2019-10-28 Orders Doctor JUAN A 1.2.840.114 [id number] Univers 00:00:00 00:00:00 Only Unassigned, YEIMY 350.1.13.10 [facility] 4.2.7.2.686 [place] as [id number] [address] Results Test Description Test Time Test Comments Results Result Comments Source ECG Pre/Post Op 2022-10-19 06:56:46 Test Item Value Reference Range Interpretation Comme nts Ventricular rate (test code = 253) 48 Atrial rate (test code = 255) 48 SD interval (test code = 266) 160 QRSD interval (test code = 260) 78 QT interval (test code = 264) 464 QTC interval (test code = 265) 414 P axis 1 (test code = 267) 17 QRS axis 1 (test code = 268) 54 T wave axis (test code = 270) 40 EKG impression (test code = 273) Sinus bradycardia-Otherwise normal [facility]- [facility] [id number] 00:14:00 Test Item Value Reference Range Interpretation Comments AFB culture No growth Specimen isolate (test after 6 weeks InformationSp ecimen code = 543-9) of Source: Tissue Specimen incubation. Site: Mediastin um: Station 7 [facility] [id number] 19:06:00 Test Item Value Reference Range Interpretation Comments POC creatinine (test 0.9 mg/dl 0.5-0.9 Operato r Name: Jaswinder code = 34357-6) Edson ID: [id number] [facility] Campus[facility] [id number] 19:06:00 Test Item Value Reference Range Interpretation Comments Estimated GFR (test 67 mL/min/1.73 m2 Caterg ory Units code = 11511-7) Interpretati onG1 >=90 Normal or highG 2 60-89 Mildly decrease dG3a 45-59 Mildly to moder ately hdpmysdibT1b 30 -44 Moderately to s everely decreasedG4 15- 29 Severely decreasedG5 <15 Kidney failureThe eGFR was calculated usin g the Chronic Kidney Disease Epidemiology Co llaboration (CKD-EPI) equat ion. Interpretation is based on recommendations of the National Kidney Foundation-Kidn ey Disease Outcomes Qualit y Initiative (NKF-KDOQI) pub lished in 2014. [facility] [id number] 00:15:00 Test Item Value Reference Range Interpretation Comments Fungus culture No growth Specimen isolate (test after 4 weeks InformationSp ecimen code = 580-1) of Source: Tissue Specimen incubation. Site: Mediastin um: Station 7 [facility] [id number] 20:37:00 Test Item Value Reference Range Interpretation Comments AFB stain No acid fast Specimen (test code = bacilli (AFB) InformationSpe cimen 676-7) seen. Source: TissueS pecimen Site: Mediastin um: Station 7 [facility] [id number] 22:45:05 Test Item Value Reference Range Interpretation Comments Case number (test code = [id number]) Cytology See link below for (non-gynecological) PDF Lab Report report (test code = 1178) Result status (test code This is Final Report = [id number]) for [id number] [facility] CampusFlow cytometry [id number] 19:16:23 Test Item Value Reference Range Interpretation Comments Case number (test code = [id number]) Flow cytometry evaluation See link below for PDF (test code = 8309825) PDF Lab Report [facility] [id number] 14:18:00 Test Item Value Reference Range Interpretation Comments Anaerobic No anaerobic Specimen culture isolate organisms InformationS pecimen (test code = isolated. Source: TissueS pecimen 31171-5) Site: Mediastin um: Station 7 [facility] CampusTise [id number] 21:58:00 Test Item Value Reference Range Interpretation Comments Tissue culture No growth Specimen isolate (test after 3 days. InformationSp ecimen code = 44982-2) Source: Tiss ueSpecimen Site: Mediastin um: Station 7 [facility] [id number] 19:47:00 Test Item Value Reference Range Interpretation Comments Fungus smear No fungi Specimen (test code = observed. InformationSpec imen Source: 1443) TissueSpecimen Site: Mediastinum: St ation [address] [facility] [facility] 12 [id number] 11:34:43 Test Item Value Reference Range Interpretation Comments Ventricular rate (test 60 code = 253) Atrial rate (test code = 60 255) SD interval (test code = 144 266) QRSD interval (test code 86 = 260) QT interval (test code = 444 264) QTC interval (test code 444 = 265) P axis 1 (test code = -26 267) QRS axis 1 (test code = 113 268) T wave axis (test code = -8 270) EKG impression (test Poor data code = 273) quality-Probable Normal sinus rhythm-Right axis deviation-Low voltage QRS-Abnormal QRS-T angle, consider primary T wave abnormality-Abnormal ECG-No previous ECGs available-Electronica lly Signed By Yvon BAIRD, Keyla ([id number]) on 09/02/2022 6:34:41 AM [facility] CampusGram [id number] 04:01:00 Test Item Value Reference Range Interpretation Comments Gram stain No organisms Specimen isolate (test seen InformationSpe [facility] code = 1469) Source: TissueS pecimen Site: Mediastin um: Station 7 [facility] [id number] 17:28:00 Test Item Value Reference Range Interpretation Comments POC glucose (test 96 mg/dL 65-99 Surg Tech N marlo: Harris code = 41873-3) BlaineDevice ID: [id number] able: No Action Needed [facility]- CT CHEST W/[id number] 13:07:00 [facility] 1960 Sex: F Name: LATRICE PEREIRA [facility] : 1960 Age/S: 62 / F [address] [address] [place] Unit #: [id number] Loc: [place] [address] Phys: Zoila Pete DO Acct: [id number] Dis Date: Status: REG CLI PHONE #: [phone] Exam Date: 04/18/2022 1103 FAX #: Reason: CHRONIC LYMPHADENITIS EXPECT MESENTERIC EXAMS: CPT: [id number] CT CHEST W/CONTRAST 87624 Location Code: S17 EXAMINATION: - CT CHEST [...] measures 1.9 x 0.9 cm. Multiple enlarged retrocaval/pretracheal space lymph nodes are present, with the largest measuring 2.0 x 2.3 cm. Enlarged subcarinal lymph node measuring up to 1.8 x 2.0 cm. Left axillary lymph nodescontain a fatty hilum and measure up to [...] 1 Signed Report (CONTINUED) Name: LATRICE PEREIRA [facility]ITAL[facility]i Lantigua : 1960 Age/S: 62 / F [address] [address] [place] Unit #: [id number] Loc: [place] [address] Phys: YanciZoila DO Acct: [id number] Dis Date: Status: REG CLI PHONE #: [phone] Exam Date: 04/18/2022 1103 FAX #: Reason: CHRONIC LYMPHADENITIS EXPECT MESENTERIC EXAMS: CPT: [id number] CT CHEST W/CONTRAST 66288 (Continued) Upper Abdomen: Abdomen: The gallbladder is surgically absent. Bones: No evidence of acute osseous abnormality. IMPRESSION: Mediastinal lymphadenopathy with the largest in the prevascular space measuring up to 1.9 x 0.9 cm, retrocaval/pretracheal space measuringup to 2.0 x 2.3 cm and a subcarinal node measuring up to 1.8 x 2.0 cm. Scattered patchy and predomina ntly groundglass opacities in the periphery of the lungs can be seen with pneumonia, edema, with other etiologies not excluded. at 1307 Reported and signed by: Nash Alegria M.D. CC: Zoila Pete DO; Tavares Whyte MD Technologist:Sharon Rm, RT,(R),(CT) CTDI: DLP: Trnscb Date/Time: 04/18/2022 (1307) [email or web address] Orig Print D/T: S: 04/18/2022 (0271) PAGE 2 Signed Report- US HEAD AND EFEA2828-09-15 12:33:00[facility] : 1960 Sex: F Name: LATRICE PEREIRA [facility] : 1960 Age/S: 62 / F [address] [address] [place] Unit #: [id number] Loc: [place] [address] Phys: Zoila Pete DO Acct: [id number] Dis Date: Status: REG CLI PHONE #: [phone] Exam Date: 04/18/2022 1045 FAX #: Reason: CHRONIC LYMPHADENITIS EXCEPT MESENTERIC EXAMS: CPT: [id number] US HEAD AND NECK 82952 Location Code: S17 EXAMINATION: - US HEAD AND NECK CLINICAL INDICATION: Female, 62 years old with CHRONIC LYMPHADENITIS . COMPARISON: CT neck March 23, 2022. TECHNIQUE: Grayscale and color Doppler evaluation of the thyroid gland is performed. FINDINGS: The echogenicity ofthe thyroid is heterogeneous. Thyroid vascularity is within normal limits Right Lobe: The right lobemeasures 2.5 x 0.5 x 1.0cm. -No definite thyroid masses are seen. Left Lobe: The left lobe measures 2.1 x 0.4 x 0.9cm. -No definite thyroid masses are seen. Isthmus: The isthmus measures 0.1cm. -No definite isthmus masses are seen. Extrathyroidal Soft Tissue: On the right side of the neck, there are p redominantly hypoechoic lymph nodes, the largest measuring up to 1.7 x 0.4 x 1.5 cm. On the left side of the neck there are predominantly hypoechoic lymph nodes, with the largest measuring up to 1.1 x 0.5 x 0.7 cm. IMPRESSION: No evidence of thyroid nodules. Bilateral neck lymph nodes with the largeston the right measuring up to 1.7 x 0.5 x 1.5 cm and on the left measuring up to 1.1 x 0.5 x 0.7 cm. PAGE 1 Signed Report (CONTINUED) Name: LATRICE PEREIRA [place] : 1960 Age/S: 62 / F [address] [place] [address] Unit #: [id number] Loc: [place] [address] Phys: Zoila Pete DO Acct: [id number] Dis Date: Status: REG CLI PHONE #: [phone] Exam Date: 04/18/2022 1045 FAX #: Reason: CHRONIC LYMPHADENITIS EXCEPT MESENTERIC EXAMS: CPT: [id number] HEAD AND NECK 54448 (Continued) at 1233 Reported and signed by: Nash Alegria M.D. CC: Zoila Pete DO; Tavarse Whyte MD Technologist: Kassi Nelson RDMS Trnmsb Date/Time: 04/18/2022 (1233) [email or web address] PAGE 2 Signed Report Name: LATRICE PEREIRA [place] : 1960 Age/S: 62 / X[address] [facility] Unit #: [id number] Loc: [place] [address] Phys: Zoila Pete DO Acct: [id number] Dis Date: Status: REG CLI PHONE #: [phone] Exam Date: 04/18/2022 1045 FAX #: Reason: CHRONIC LYMPHADENITIS EXCEPT MESENTERIC EXAMS: CPT: [id number] HEAD AND NECK 55211 (Continued) Orig Print D/T:S: 04/18/2022 (1255) Probe: PAGE 3 Signed Report- CT NECK W/CONTRAST 2022-03-23 11:11:00 [facility] : 1960 Sex: F Name: LATRICE PEREIRA [facility] : 1960 Age/S: 62 / F [address] [address] [place] Unit #: [id number] Loc: [place] [address] Phys: ReedZoila lafleur DO Acct: [id number] Dis Date: Status: REG CLI PHONE #: [phone] Exam Date: 03/23/2022 1010 FAX #: Reason: PARALYSIS OF VOCAL CORDS AND LARYNX EXAMS: CPT: [id number] CT NECK W/CONTRAST 71211 LOCATION: B2 EXAM: CT NECK WITH CONTRAST HISTORY: PARALYSIS OF VOCAL CORDSAND LARYNX TECHNIQUE: Axial CT images were obtained of the neck with intravenous contrast. Coronal and sagittal reformatted images were created from the data set. One or more of the following dose reduction techniques were used: Automated exposure control, adjustment of the mA and/or kV according to patient size, and/or iterative reconstruction. COMPARISON: None FINDINGS: The aerodigestive structuresare within normal limits. Specifically, the nasal cavity, [...] limits. Following administration of intravenous contrast material, thereis no abnormal enhancement. IMPRESSION: 1. Large lower paratracheal lymph nodes measuring up to 3.6 cm are along the expected course of the recurrent laryngeal nerve. No other neck masses. 2. Bilateralpulmonary edema and/or pneumonia in the visualized lung PAGE 1 Signed Report (CONTINUED) Name: LATRICE PEREIRA : 1960 Age/S: 62 / F [address] [address] [place] Unit #: [id number] Loc: [place] [address] Phys: Zoila Pete DO Acct: [id number] Dis Date: Status: REG CLI PHONE #: [phone] Exam Date: 03/23/2022 1010 FAX #: Reason: PARALYSIS OF VOCAL CORDS AND LARYNX EXAMS: CPT: [id number] CTNECK W/CONTRAST 42989 (Continued) apices. at 1111 Reported and signed by: Dru Kaur M.D. CC: Zoila Pete DO; Tavares Whyte MD Technologist:Sharon Rm, RT,(R),(CT) CTDI: DLP: Trnscb Date/Time: 03/23/2022 (1111) [email or web address] Orig Print D/T: S: 03/23/2022 (1114) PAGE 2 Signed ReportBLOOD UREA [id number] 09:40:00 Test Item Value Reference Range Interpretation Comments BLOOD UREA NITROGEN (test code = 11 MG/DL 7-18 N BUN) CREATININE W ESTIMATED [id number] 09:40:00 Test Item Value Reference Range Interpretation Comments GLOMERULAR FILTRATION >=60 max estimate >60 RATE (test code = GFR) estGFR CREATININE (test code = 0.9 MG/DL 0.6-1.0 N CREAT) [id number] 12:45:34Mendez Tate, LOC ? ? 11/04/2019 ?7:47 AMIntubationDate/Time: 11/04/2019 7:23 AMUrgency: elective Airway not difficult General Information and Staff Patient location during procedure: ORResident/ENVIRONMENTAL PROFESSIONAL: Mendez Tate CRNAPerformed: resident/ENVIRONMENTAL PROFESSIONAL Indications and Patient ConditionIndications for airway management: [...] Measured from: lipsNumber of attempts at approach: 1UnHereford Regional Medical CenterAMMONIA2020-02-20 11:24:00 Test Item Value Reference Range Interpretation Comments AMMONIA (BEAKER) (test code = 348) 121 mol/L 18-72 H Sample not centrifuged within 15 minutes of collection. Result may be spuriously elevated.[id number] 10:38:00 Test Item Value Reference Range Interpretation Comments AMMONIA (BEAKER) (test code = 348) 54 mol/L 18-72 Sample not centrifuged within 15 minutes of collection.Result may be spuriously elevated.TISSUE [id number] 17:34:00Surgical Pathology Report Case: [id number] Authorizing Provider: Jj Mistry MD Collected: 01/21/2019 1144 Ordering Location: [facility] Endoscopy Received: 01/21/2019 1444 Services [...] STARRY STAIN Signing Pathologist Direct Phone Line: [phone] signed by Rachael Savage MD on 01/23/2019 at 5:34 [id number] X 2, [id number] VARICES WITHOUT BLEEDINGA. Small bowel NOSB. Gastric antrumPart A. Thespecimen is received in formalin container labeled with the patient's name, date of and medical record number. The specimen consists of multiple portions of lindquist-brown tissue 0.6 x 0.4 x 0.3 cm inaggregate submitted in toto in one cassette.Part B. [...] available are evaluated Immunohistochemistry [facility] where it was developed and its performancecharacteristics were determined. It has not been cleared [...] to perform high complexity clinical laboratory testing.POCT-GLUCOSE [id number] 11:56:00 Test Item Value Reference Range Interpretation Comments POC-GLUCOSE METER 207 mg/dL 70-110 H TESTED AT [facility] 67 ([facility]) (test code = VIKTORGEOVANI Bj [facility] 1538) [address] POCT-GLUCOSE [id number] 08:03:00 Test Item Value Reference Range Interpretation Comments POC-GLUCOSE METER 117 mg/dL 70-110 H TESTED AT [facility] 6720 ([facility]) (test code = VIKTORRI Bj [facility] 1538) [address] [id number] 06:09:00 Test Item Value Reference Range Interpretation Comments MAGNESIUM (Deezer) (test code = 1.9 mg/dL 1.6-2.6 627) BASIC METABOLIC [id number] 06:09:00 Test Item Value Reference Range Interpretation [...] APPLICABLE FOR DIALYSIS PATIEN TS. HEPATIC FUNCTION [id number] 06:09:00 Test Item Value Reference Range Interpretation [...] (test code = 44 U/L 6-55 347) PT/[id number] 05:47:00 Test Item Value Reference Range Interpretation [...] mechanical heart valves.CBC W/PLT COUNT & AUTO [id number] 05:46:00 Test Item Value Reference Range Interpretation [...] PERCENT (BEAKER) (test code = 2801) POCT-GLUCOSE [id number] 23:48:00 Test Item Value Reference Range Interpretation Comments POC-GLUCOSE METER 182 mg/dL 70-110 H TESTED AT [place] [address] ([facility]) (test code = [facility] 1538) [address] POCT-GLUCOSE [id number] 18:04:00 Test Item Value Reference Range Interpretation Comments POC-GLUCOSE METER 95 mg/dL 70-110 TESTED AT [place] [address] ([facility]) (test code = [facility] [address] 1538) HEMOGLOBIN AND [id number] 17:04:00 Test Item Value Reference Range Interpretation Comments HEMOGLOBIN (BEAKER) (test code = 8.8 GM/DL 11.2-15.7 L 410) HEMATOCRIT (BEAKER) (test code = 27.4 % 34.1-44.9 L 411) BLOOD GAS, [id number] 15:45:00 Test Item Value Reference Range Interpretation [...] least 15 minutes prior to lab drawPOCT-GLUCOSE [id number] 11:29:00 Test Item Value Reference Range Interpretation Comments POC-GLUCOSE METER 205 mg/dL 70-110 H TESTED AT [facility] 6720 ([facility]) (test code = ANALI Lorenzo [facility] 1538) [address] RAD, CHEST, 1 VIEW, NON [id number] 08:46:00Reason for exam:->shortness of breathShould this be [...] Impression: Bibasilar subsegmental atelectasis. Signed: Daphne Bishop Verified Date/Time: 12/14/2018 08:46:53 Reading Location: [facility] Radiology Reading Room POCT- GLUCOSE [id number] 08:21:00 Test Item Value Reference Range Interpretation Comments POC-GLUCOSE METER 107 mg/dL 70-110 TESTED AT [place] [address] ([facility]) (test code = ANALI Lorenzo [facility] 1538) [address] HEMOGLOBIN [id number] 08:02:00 Test Item Value Reference Range Interpretation Comments HEMOGLOBIN A1C (BEAKER) (test code = 5.1 % 4.3-6.1 368) [id number] 07:51:00 Test Item Value Reference Range Interpretation Comments MAGNESIUM (BEAKER) (test code = 1.8 mg/dL 1.6-2.6 627) BASIC METABOLIC [id number] 07:51:00 Test Item Value Reference Range Interpretation [...] DIALYSIS PATIEN TS. Specimen slightly ictericHEPATIC FUNCTION [id number] 07:51:00 Test Item Value Reference Range Interpretation [...] Specimen slightly ictericCBC W/PLT COUNT & AUTO [id number] 05:44:00 Test Item Value Reference Range Interpretation [...] 0-1 PERCENT (BEAKER) (test code = 2801) [id number] 05:41:00 Test Item Value Reference Range Interpretation [...] 2.5-3.5 for patients wiht mechanical heart valves.POCT-GLUCOSE [id number] 00:43:00 Test Item Value Reference Range Interpretation Comments POC-GLUCOSE METER 131 mg/dL 70-110 H TESTED AT [place] [address] ([facility]) (test code = VIKTORRI Bj [facility] 1538) [address] POCT-GLUCOSE [id number] 17:27:00 Test Item Value Reference Range Interpretation Comments POC-GLUCOSE METER 133 mg/dL 70-110 H TESTED AT [place] [address] ([facility]) (test code = [facility] 1538) [address] POCT-GLUCOSE [id number] 14:27:00 Test Item Value Reference Range Interpretation Comments POC-GLUCOSE METER 136 mg/dL 70-110 H TESTED AT [place] [address] ([facility]) (test code = [facility] 1538) [address] POCT-GLUCOSE [id number] 12:53:00 Test Item Value Reference Range Interpretation Comments POC-GLUCOSE METER 207 mg/dL 70-110 H TESTED AT [place] [address] ([facility]) (test code = [facility] 1538) [address] [id number] 07:55:00 Test Item Value Reference Range Interpretation Comments PHOSPHORUS (BEAKER) (test code = 2.9 mg/dL 2.3-4.7 604) [id number] 07:55:00 Test Item Value Reference Range Interpretation Comments MAGNESIUM (BEAKER) (test code = 1.9 mg/dL 1.6-2.6 627) BASIC METABOLIC [id number] 07:55:00 Test Item Value Reference Range Interpretation [...] DIALYSIS PATIEN TS. Specimen slightly ictericHEPATIC FUNCTION [id number] 07:55:00 Test Item Value Reference Range Interpretation [...] U/L 6-55 H 347) Specimen slightly ictericPOCT-GLUCOSE [id number] 07:52:00 Test Item Value Reference Range Interpretation Comments POC-GLUCOSE METER 117 mg/dL 70-110 H TESTED AT [facility] 6720 (BEAKER) (test code = [place] 1536) [address] CBC W/PLT COUNT & AUTO [id number] 06:01:00 Test Item Value Reference Range Interpretation [...] 0-1 PERCENT (BEAKER) (test code = 2801) [id number] 05:56:00 Test Item Value Reference Range Interpretation [...] 2.5-3.5 for patients wiht mechanical heart valves.BLOOD [id number] 02:01:00 Test Item Value Reference Range Interpretation Comments CULTURE (SCOOBYAKER) (test No growth in 5 days code = 1095) BLOOD [id number] 02:01:00 Test Item Value Reference Range Interpretation Comments [facility] (test No growth in 5 days code = 1095) POCT-GLUCOSE [id number] 00:06:00 Test Item Value Reference Range Interpretation Comments POC-GLUCOSE METER 118 mg/dL 70-110 H TESTED AT [place] [address] ([facility]) (test code = ANALI Lorenzo [facility] 1538) [address] POCT-GLUCOSE [id number] 17:25:00 Test Item Value Reference Range Interpretation Comments POC-GLUCOSE METER 105 mg/dL 70-110 TESTED AT [place] [address] ([facility]) (test code = ANALI Lorenzo [facility] 1538) [address] HEMOGLOBIN AND [id number] 14:25:00 Test Item Value Reference Range Interpretation Comments HEMOGLOBIN (BEAKER) (test code = 8.9 GM/DL 11.2-15.7 L 410) HEMATOCRIT (BEAKER) (test code = 28.5 % 34.1-44.9 L 411) Contact hospitalist if Hgb <7.0RAD, ABDOMEN/KUB, 1 VIEW [id number] 14:09:00 Reason for exam:->abd distentionFINAL REPORT Abdomen, one view CLINICAL INDICATION: Abdominal distention COMPARISON: 12/10/2018 IMPRESSION:Dilated small bowel loops are again noted throughout the abdomen, similarto prior. There is also gaseous distention of the ascending and transverse colon. No gas is noted inthe sigmoid colon or rectum. Overall, the bowel gas pattern is unchanged. Signed: Alex Velarde Verified Date/Time: 12/12/2018 14:09:05 Reading Location: [facility] C013 Consult Reading Room RAD, CHEST, 1 VIEW, NON [id number] 14:06:00Reason for exam:->hypoxiaShould this be performed at the bedside?->YesFINAL REPORT Chest, portable AP view History: Hypoxia Comparison: 12/07/2018 IMPRESSION: The heart is stable in size. There are low lung volumes. Bibasilar atelectasis is present. There is a small right pleural effusion. There is no pneumothorax. Left upper extremity PICC tip terminates in the right atrium. Signed: Alex Velarde Verified Date/Time: 12/12/2018 14:06:55 Reading Location: [facility] C013W Consult Reading Room POCT-GLUCOSE [id number] 12:31:00 Test Item Value Reference Range Interpretation Comments POC-GLUCOSE METER 194 mg/dL 70-110 H TESTED AT [facility] 67 ([facility]) (test code = ANALI Lorenzo [facility] 1538) [address] POCT-GLUCOSE [id number] 07:44:00 Test Item Value Reference Range Interpretation Comments POC-GLUCOSE METER 116 mg/dL 70-110 H TESTED AT [facility] 6720 [facility] (test code = ANALI Lorenzo [facility] 1538) [address] [id number] 06:16:00 Test Item Value Reference Range Interpretation Comments PHOSPHORUS (BEAKER) (test code = 2.8 mg/dL 2.3-4.7 604) [id number] 06:16:00 Test Item Value Reference Range Interpretation Comments MAGNESIUM (BEAKER) (test code = 1.9 mg/dL 1.6-2.6 627) BASIC METABOLIC [id number] 06:16:00 Test Item Value Reference Range Interpretation [...] DIALYSIS PATIEN TS. Specimen slightly ictericHEPATIC FUNCTION [id number] 06:16:00 Test Item Value Reference Range Interpretation [...] 70 U/L 6-55 H 347) Specimen slightly ictericPT/[id number] 05:33:00 Test Item Value Reference Range Interpretation [...] mechanical heart valves.CBC W/PLT COUNT & AUTO [id number] 05:21:00 Test Item Value Reference Range Interpretation [...] NEUTROPHILS ABSOLUTE COUNT 4.49 K/ L 1.56-6.13 ([facility]) (test code = 670) LYMPHOCYTES ABSOLUTE COUNT 2.36 K/ L 1.18-3.74 ([facility]) (test code = 414) MONOCYTES ABSOLUTE COUNT (AKER) 1.41 K/ L 0.24-0.36 H (test code = 415) EOSINOPHILS ABSOLUTE COUNT 0.34 K/ L 0.04-0.36 (AKER) (test code = 416) BASOPHILS ABSOLUTE COUNT (AKER) 0.05 K/ L 0.01-0.08 (test code = 417) IMMATURE GRANULOCYTES-RELATIVE 1 % 0-1 PERCENT ([facility]) (test code = 2801) POCT-GLUCOSE [id number] 00:10:00 Test Item Value Reference Range Interpretation Comments POC-GLUCOSE METER 127 mg/dL 70-110 H TESTED AT [place] [address] ([facility]) (test code = [facility] Bj [facility] 1538) [address] POCT-GLUCOSE [id number] 17:40:00 Test Item Value Reference Range Interpretation Comments POC-GLUCOSE METER 165 mg/dL 70-110 H TESTED AT [place] [address] ([facility]) (test code = [facility] Bj [facility] 1538) [address] POCT-GLUCOSE [id number] 12:35:00 Test Item Value Reference Range Interpretation Comments POC-GLUCOSE METER 190 mg/dL 70-110 H TESTED AT [place] [address] ([facility]) (test code = [facility] Bj [facility] 1538) [address] POCT-GLUCOSE [id number] 08:29:00 Test Item Value Reference Range Interpretation Comments POC-GLUCOSE METER 173 mg/dL 70-110 H TESTED AT [place] [address] ([facility]) (test code = [facility] 1538) [address] CBC W/PLT COUNT & AUTO [id number] 05:21:00 Test Item Value Reference Range Interpretation Comments WHITE BLOOD CELL COUNT ([facility]) 9.4 K/ L 3.5-10.5 (test code = 775) RED BLOOD CELL COUNT ([facility]) 2.86 M/ L 3.93-5.22 L (test code = 761) HEMOGLOBIN ([facility]) (test code = 8.9 GM/DL 11.2-15.7 L [...] 0-1 PERCENT (BEAKER) (test code = 2801) [id number] 05:18:00 Test Item Value Reference Range Interpretation Comments PHOSPHORUS (BEAKER) (test code = 2.1 mg/dL 2.3-4.7 L 604) [id number] 05:18:00 Test Item Value Reference Range Interpretation Comments MAGNESIUM (BEAKER) (test code = 2.2 mg/dL 1.6-2.6 627) BASIC METABOLIC [id number] 05:18:00 Test Item Value Reference Range Interpretation [...] APPLICABLE FOR DIALYSIS PATIEN TS. HEPATIC FUNCTION [id number] 05:18:00 Test Item Value Reference Range Interpretation [...] code = 110 U/L 6-55 H 347) [id number] 05:05:00 Test Item Value Reference Range Interpretation Comments PROTIME (BEAKER) (test code = 19.4 seconds 11.9-14.2 H 759) INR (BEAKER) (test code = 370) 1.7 <=5.9 PARTIAL THROMBOPLASTIN TIME 35.9 seconds 22.5-36.0 ([facility]) (test code = 760) Effective 10/24/2018: PT Reference Range ChangeNew: 11.9-14.2 Previous: 11.7- 14.7RECOMMENDED COUMADIN/WARFARIN INR THERAPY RANGESSTANDARD DOSE: 2.0-3.0 Includes: PROPHYLAXIS for venous thrombosis, systemic embolization; TREATMENT for venous thrombosis and/or pulmonary embolus.HIGH RISK: Target INR is 2.5-3.5 for patients wiht mechanical heart valves.[id number] 05:05:00 Test Item Value Reference Range Interpretation Comments FIBRINOGEN LEVEL ([facility]) (test 184 mg/dl 225-434 L code = 658) LACTIC ACID, [id number] 05:02:00 Test Item Value Reference Range Interpretation Comments LACTATE BLOOD VENOUS (2) ([facility]) 1.8 mmol/L 0.5-2.2 (test code = 2872) POCT-GLUCOSE [id number] 22:06:00 Test Item Value Reference Range Interpretation Comments POC-GLUCOSE METER 295 mg/dL 70-110 H TESTED AT [place] [address] ([facility]) (test code = ANALI [place] 1538) [address] POCT-GLUCOSE [id number] 18:38:00 Test Item Value Reference Range Interpretation Comments POC-GLUCOSE METER 181 mg/dL 70-110 H TESTED AT [place] [address] ([facility]) (test code = ANALI [place] 1538) [address] BLOOD [id number] 16:53:00 Test Item Value Reference Range Interpretation Comments CULTURE A From Anaerobic Bottle ([facility]) (test Only Coagulas e code = 1095) negative Staphylococcus GRAM STAIN From anaerobic RESULT ([facility]) bottle only: gram (test code = positive cocci in 1123) clusters POCT-GLUCOSE [id number] 13:01:00 Test Item Value Reference Range Interpretation Comments POC-GLUCOSE METER 143 mg/dL 70-110 H TESTED AT [facility] 67 ([facility]) (test code = ANALI [place] 1538) [address] RAD, ABDOMEN/KUB, 1 VIEW [id number] 08:18:00Reason for exam:->ileusFINAL REPORT INDICATION:Ileus. COMPARISON: December [...] and pain pump again noted. Signed: Trisha Hernandez MDReport Verified Date/Time: 12/10/2018 08:18:25 Reading Location: [facility] Diagnostic Imaging Reading Room - [place] [address] CBC W/PLT COUNT & AUTO [id number] 07:36:00 Test Item Value Reference Range Interpretation [...] = 3438) Received comment: User comments: Slide comments:[id number] 05:18:00 Test Item Value Reference Range Interpretation Comments PHOSPHORUS (BEAKER) (test code = 2.5 mg/dL 2.3-4.7 604) [id number] 05:18:00 Test Item Value Reference Range Interpretation Comments MAGNESIUM (BEAKER) (test code = 2.2 mg/dL 1.6-2.6 627) BASIC METABOLIC [id number] 05:18:00 Test Item Value Reference Range Interpretation [...] APPLICABLE FOR DIALYSIS PATIEN TS. HEPATIC FUNCTION [id number] 05:18:00 Test Item Value Reference Range Interpretation [...] 136 U/L 6-55 H 347) LACTIC ACID, [id number] 05:00:00 Test Item Value Reference Range Interpretation Comments LACTATE BLOOD VENOUS (2) (BEAKER) 2.0 mmol/L 0.5-2.2 (test code = 2872) [id number] 04:39:00 Test Item Value Reference Range Interpretation Comments FIBRINOGEN LEVEL (KENNY) (test 221 mg/dl 225-434 L code = 658) [id number] 04:39:00 Test Item Value Reference Range Interpretation [...] for patients wiht mechanical heart valves.U/S, ABDOMINAL, [id number] 01:07:00Reason for exam:->ASCITES EVAL Should this be performed at the bedside?->YesFINAL REPORT Exam: Limited abdominal ultrasound. Clinical History: ASCITES EVAL. Comparison: No prior study for direct comparison. Findings: Limited abdominal ultrasound was performed evaluating all four abdominal quadrants to evaluate for ascites. There is small ascites in the right upper quadrant. Impression: Small right upper quadrant ascites. Signed: Flor Griffiths [facility] Verified Date/Time: 12/10/2018 01:07:16 POCT- GLUCOSE [id number] 00:25:00 Test Item Value Reference Range Interpretation Comments POC-GLUCOSE METER 134 mg/dL 70-110 H TESTED AT [facility] 6720 ([place]) (test code = [place] 1538) [address] BLOOD [id number] 20:01:00 Test Item Value Reference Range Interpretation Comments CULTURE (KENNY) (test No growth in 5 days code = 1095) HEMOGLOBIN AND [id number] 17:57:00 Test Item Value Reference Range Interpretation Comments HEMOGLOBIN (BEAKER) (test code = 8.8 GM/DL 11.2-15.7 L 410) HEMATOCRIT (BEAKER) (test code = 28.2 % 34.1-44.9 L 411) POCT-GLUCOSE [id number] 17:57:00 Test Item Value Reference Range Interpretation Comments POC-GLUCOSE METER 175 mg/dL 70-110 H TESTED AT [place] [address] ([facility]) (test code = ANALI Lorenzo [place] 1538) [address] POCT-GLUCOSE [id number] 13:23:00 Test Item Value Reference Range Interpretation Comments POC-GLUCOSE METER 110 mg/dL 70-110 TESTED AT [place] [address] ([facility]) (test code = ANALI Lorenzo [place] 1538) [address] CBC W/PLT COUNT & AUTO [id number] 09:54:00 Test Item Value Reference Range Interpretation [...] in the right abdomen. Signed: Macey Mayo MDReport Verified Date/Time: 12/09/2018 07:43:19 Reading Location: [address] Transitional Reading Room POCT-GLUCOSE [id number] 05:30:00 Test Item Value Reference Range Interpretation Comments POC-GLUCOSE METER 112 mg/dL 70-110 H TESTED AT [facility] 6720 (BEAKER) (test code = ANALI Lorenzo [facility] 1538) [address] [id number] 05:09:00 Test Item Value Reference Range Interpretation Comments MAGNESIUM (BEAKER) 2.1 mg/dL 1.6-2.6 Specimen slightly (test code = 627) hemolyzed [id number] 05:09:00 Test Item Value Reference Range Interpretation Comments PHOSPHORUS (BEAKER) 2.2 mg/dL 2.3-4.7 L Specimen slightly (test code = 604) hemolyzed BASIC METABOLIC [id number] 05:09:00 Test Item Value Reference Range Interpretation [...] DIALYSIS PATIEN TS. Specimen slightly ictericHEPATIC FUNCTION [id number] 05:09:00 Test Item Value Reference Range Interpretation [...] = 347) hemolyzed Specimen slightly ictericLACTIC ACID, [id number] 04:54:00 Test Item Value Reference Range Interpretation Comments LACTATE BLOOD VENOUS (2) (BEAKER) 1.3 mmol/L 0.5-2.2 (test code = 2872) Specimen slightly ictericPT/[id number] 04:45:00 Test Item Value Reference Range Interpretation [...] is 2.5-3.5 for patients wiht mechanical heart valves.[id number] 04:45:00 Test Item Value Reference Range Interpretation Comments FIBRINOGEN LEVEL (BEAKER) (test 212 mg/dl 225-434 L code = 658) POCT-GLUCOSE [id number] 23:51:00 Test Item Value Reference Range Interpretation Comments POC-GLUCOSE METER 127 mg/dL 70-110 H TESTED AT [facility] 6720 (BEAKER) (test code = ANALI Lorenzo [place] 1538) [address] [id number] 18:46:00 Test Item Value Reference Range Interpretation Comments PHOSPHORUS (BEAKER) (test code = 2.8 mg/dL 2.3-4.7 604) [id number] 18:46:00 Test Item Value Reference Range Interpretation Comments MAGNESIUM (BEAKER) (test code = 2.3 mg/dL 1.6-2.6 627) BASIC METABOLIC [id number] 18:46:00 Test Item Value Reference Range Interpretation [...] FOR DIALYSIS PATIEN TS. Specimen slightly ictericPOCT-GLUCOSE [id number] 17:54:00 Test Item Value Reference Range Interpretation Comments POC-GLUCOSE METER 93 mg/dL 70-110 TESTED AT [facility] 6720 ([facility]) (test code = [place] [address] 1538) LACTIC ACID, [id number] 12:49:00 Test Item Value Reference Range Interpretation Comments LACTATE BLOOD VENOUS (2) ([facility]) 1.9 mmol/L 0.5-2.2 (test code = 2872) Specimen slightly ictericPOCT-GLUCOSE [id number] 12:09:00 Test Item Value Reference Range Interpretation Comments POC-GLUCOSE METER 142 mg/dL 70-110 H TESTED AT [facility] 67 ([facility]) (test code = VIKTORRI Bj [facility] 1538) [address] RAD, ABDOMEN/KUB, 1 VIEW [id number] 08:31:00Reason for exam:->ileusShould this be performed at [...] early small bowel obstruction. Signed: Daphne Bishop Verified Date/Time: 12/08/2018 08:31:46 Reading Location: [address] Body Reading Room [id number] 08:02:00 Test Item Value Reference Range Interpretation Comments PHOSPHORUS (BEAKER) (test code = 1.7 mg/dL 2.3-4.7 L 604) POCT-GLUCOSE [id number] 05:40:00 Test Item Value Reference Range Interpretation Comments POC-GLUCOSE METER 128 mg/dL 70-110 H TESTED AT [facility] 6720 [facility] (test code = [facility] Bj [facility] 1538) [address] [id number] 05:14:00 Test Item Value Reference Range Interpretation Comments MAGNESIUM (BEAKER) (test code = 2.2 mg/dL 1.6-2.6 627) BASIC METABOLIC [id number] 05:14:00 Test Item Value Reference Range Interpretation [...] DIALYSIS PATIEN TS. Specimen slightly ictericHEPATIC FUNCTION [id number] 05:14:00 Test Item Value Reference Range Interpretation [...] 229 U/L 6-55 H 347) Specimen slightly [id number] 05:09:00 Test Item Value Reference Range Interpretation Comments FIBRINOGEN LEVEL (BEAKER) (test 223 mg/dl 225-434 L code = 658) [id number] 05:09:00 Test Item Value Reference Range Interpretation [...] mechanical heart valves.CBC W/PLT COUNT & AUTO [id number] 04:41:00 Test Item Value Reference Range Interpretation [...] (BEAKER) (test code = 2801) HEMOGLOBIN AND [id number] 04:38:00 Test Item Value Reference Range Interpretation Comments HEMOGLOBIN (BEAKER) (test code = 8.3 GM/DL 11.2-15.7 L 410) HEMATOCRIT (BEAKER) (test code = 26.1 % 34.1-44.9 L 411) POCT-GLUCOSE [id number] 00:02:00 Test Item Value Reference Range Interpretation Comments POC-GLUCOSE METER 125 mg/dL 70-110 H TESTED AT [facility] 6720 (BEAKER) (test code = [place] 1538) [address] [id number] 23:12:00 Test Item Value Reference Range Interpretation Comments POTASSIUM (BEAKER) (test code = 5.1 meq/L 3.5-5.1 379) [id number] 23:12:00 Test Item Value Reference Range Interpretation Comments MAGNESIUM (BEAKER) (test code = 2.3 mg/dL 1.6-2.6 627) HEMOGLOBIN AND [id number] 22:46:00 Test Item Value Reference Range Interpretation Comments HEMOGLOBIN (BEAKER) (test code = 7.8 GM/DL 11.2-15.7 L 410) HEMATOCRIT (BEAKER) (test code = 23.9 % 34.1-44.9 L 411) BLOOD CULTURE IDENTIFICATION [id number] 20:39:00 Test Item Value Reference Interpretation Comments Range LISTERIA MONOCYTOGENES Not detected Not detected (test code = 2410632) STAPHYLOCOCCUS (test Detected Not detected A Coagula se negative code = 20160503) Staph specie s (CoNS)- methici llin susceptibleFirs t-alvino e therapy: Cefa zolin or Oxacillin (Oxacillin pref erred if PROTECTION OFFICER involvem ent) MecA NOT DETECTEDPossibl e contamination. The likelihood of pathogenicity i s increased if th e organism is obs erved in multiple blo od cultures obtain ed from separate venipunctures.R efere nce Range: Not Detected STAPHYLOCOCCUS AUREUS Not detected Not detected (test code = 9199159) STREPTOCOCCUS (test Not detected Not detected code = 8178804) STREPTOCOCCUS Not detected Not detected AGALACTIAE (GROUP B) (test code = 4586890) STREPTOCOCCUS Not detected Not detected PNEUMONIAE (test code = 2277437) STREPTOCOCCUS PYOGENES Not detected Not detected (GROUP A) (test code = 4685272) ACINETOBACTER BAUMANNII Not detected Not detected (test code = 3875061) HAEMOPHILUS INFLUENZAE Not detected Not detected (test code = 7393582) NEISSERIA MENINGITIDIS Not detected Not detected (test code = 4733680) ENTEROBACTERIACEAE Not detected Not detected (test code = 5495990) ENTEROBACTER CLOACOE Not detected Not detected COMPLEX (test code = 2572278) KLEBSIELLA OXYTOCA Not detected Not detected (test code = 7767949) KLEBSIELLA PNEUMONIAE Not detected Not detected (test code = 1650) PROTEUS (test code = Not detected Not detected 1285322) SERRATIA MARCESCENS Not detected Not detected (test code = 7174213) LINDA ALBICANS (test Not detected Not detected code = 6767546) LINDA GLABRATA (test Not detected Not detected code = 1119406) LINDA KRUSEI (test Not detected Not detected code = 3263227) LINDA PARAPSILOSIS Not detected Not detected (test code = 6210465) LINDA TROPICALIS Not detected Not detected (test code = 6489904) ESCHERICHIA COLI (test Not detected Not detected code = 3547037) METHICILLIN-RESISTANCE Not detected Not detected GENE (test code = 8784988) VANCOMYCIN-RESISTANCE Not detected GENE (test code = 1340357) CARBAPENEM-RESISTANCE Not detected GENE (test code = 1296746) ENTEROCOCCUS-BEAKER Not detected Not detected (test code = 6063538) PSEUDOMONAS Not detected Not detected AERUGINOSA-BEAKER (test code = 6190765) Other bacteria and resistance markers not targeted by this PCR panel cannot be excluded; therefore clinical correlation and follow up of serology, culture results, and other molecular studies is required. The results are not intended to be used as the sole means for clinical diagnosis or patient management decisions. This sample was tested at the [facility] Molecular Diagnostics Laboratory using the PLYmedia Blood Culture ID Panel. It is FDA cleared and has been verified and approved by the [facility]ostics [facility] for clinical use. This laboratory is CLIA-certified and College ofAmerican Pathologists (CAP)-accredited to perform high complexity testing.POCT-GLUCOSE [id number] 18:12:00 Test Item Value Reference Range Interpretation Comments POC-GLUCOSE METER 146 mg/dL 70-110 H TESTED AT [facility] 6720 (BEAKER) (test code = ANA[place] 1538) [address] LACTIC ACID, [id number] 15:57:00 Test Item Value Reference Range Interpretation Comments LACTATE BLOOD VENOUS (2) (AKER) 2.2 mmol/L 0.5-2.2 (test code = 2872) Specimen slightly ictericHEMOGLOBIN AND [id number] 15:42:00 Test Item Value Reference Range Interpretation Comments HEMOGLOBIN (BEAKER) (test code = 8.3 GM/DL 11.2-15.7 L 410) HEMATOCRIT (AKER) (test code = 25.0 % 34.1-44.9 L 411) RAD, ABDOMEN/KUB, 1 VIEW [id number] 15:11:00Reason for exam:->suspected ileusShould this be performed [...] mass. Bones are osteopenic. Signed: Julia Stern Verified Date/Time: 12/07/2018 15:11:34 Reading Location: [facility] Mammo Reading Room [id number] 12:18:00 Test Item Value Reference Range Interpretation Comments PROCALCITONIN ([facility]) (test code 0.09 ng/mL <0.05 H = 3036) SEPSIS RISK (ng/mL)Low: 0.05-0.50Intermediate: 0.51-2.00High: >=2.01POCT- GLUCOSE [id number] 12:08:00 Test Item Value Reference Range Interpretation Comments POC-GLUCOSE METER 128 mg/dL 70-110 H TESTED AT [place] [address] ([facility]) (test code = ANA[place] 1538) [address] LACTIC ACID, [id number] 11:54:00 Test Item Value Reference Range Interpretation Comments LACTATE BLOOD VENOUS (2) ([facility]) 1.7 mmol/L 0.5-2.2 (test code = 2872) POCT-GLUCOSE [id number] 09:43:00 Test Item Value Reference Range Interpretation Comments POC-GLUCOSE METER 142 mg/dL 70-110 H TESTED AT [facility] 6720 ([facility]) (test code = [place] 1538) [address] POCT-GLUCOSE [id number] 09:41:00 Test Item Value Reference Range Interpretation Comments POC-GLUCOSE METER 147 mg/dL 70-110 H TESTED AT [facility] 6720 ([facility]) (test code = [place] 1538) [address] POCT-GLUCOSE [id number] 09:38:00 Test Item Value Reference Range Interpretation Comments POC-GLUCOSE METER 149 mg/dL 70-110 H TESTED AT [facility] 6720 ([facility]) (test code = [place]NA[place] 1538) [address] POCT-GLUCOSE [id number] 09:38:00 Test Item Value Reference Range Interpretation Comments POC-GLUCOSE METER 147 mg/dL 70-110 H TESTED AT [facility] 6720 ([facility]) (test code = [place] 1538) [address] VANCOMYCIN LEVEL, [id number] 09:37:00 Test Item Value Reference Range Interpretation Comments VANCOMYCIN TROUGH (KENNY) (test 10.5 ug/mL 10.0-20.0 code = 522) POCT-GLUCOSE [id number] 09:35:00 Test Item Value Reference Range Interpretation Comments POC-GLUCOSE METER 161 mg/dL 70-110 H TESTED AT [facility] 6720 (KENNY) (test code = [place] 1538) [address] HEMOGLOBIN AND [id number] 09:18:00 Test Item Value Reference Range Interpretation Comments HEMOGLOBIN (KENNY) (test code = 9.3 GM/DL 11.2-15.7 L 410) HEMATOCRIT (KENNY) (test code = 28.0 % 34.1-44.9 L 411) RAD, CHEST, 1 VIEW, NON [id number] 09:12:00Reason for exam:->Picc line placementShould this be [...] e steve. Bones are osteopenic. Signed: Julia Sternepjuan antonio Verified Date/Time: 12/07/2018 09:12:03 Reading Location: [facility] Reading Room , ABDOMEN/KUB, 1 VIEW [id number] 04:39:00Reason for exam:->Concern for SBO vs Ileus [...] the previously administered oral contrast. Signed: Beau Rodriguezeport Verified Date/Time: 12/07/2018 04:39:54 Reading Location: [address] Reading Room [id number] 04:12:00 Test Item Value Reference Range Interpretation Comments PHOSPHORUS (BEAKER) (test code = 3.5 mg/dL 2.3-4.7 604) [id number] 04:12:00 Test Item Value Reference Range Interpretation Comments MAGNESIUM (BEAKER) (test code = 1.8 mg/dL 1.6-2.6 627) BASIC METABOLIC [id number] 04:12:00 Test Item Value Reference Range Interpretation [...] DIALYSIS PATIEN TS. Specimen slightly ictericHEPATIC FUNCTION [id number] 04:12:00 Test Item Value Reference Range Interpretation [...] 6-55 H 347) Specimen slightly ictericLACTIC ACID, [id number] 03:49:00 Test Item Value Reference Range Interpretation Comments LACTATE BLOOD VENOUS 2.3 mmol/L 0.5-2.2 H Specime n slightly (2) (BEAKER) (test hemolyzed code = 2872) Specimen slightly ictericPT/[id number] 03:47:00 Test Item Value Reference Range Interpretation [...] is 2.5-3.5 for patients wiht mechanical heart valves.[id number] 03:47:00 Test Item Value Reference Range Interpretation Comments FIBRINOGEN LEVEL (BEAKER) (test 252 mg/dl 225-434 code = 658) CBC W/PLT COUNT & AUTO [id number] 03:43:00 Test Item Value Reference Range Interpretation [...] (BEAKER) (test code = 2801) BLOOD GAS, [id number] 00:47:00 Test Item Value Reference Range Interpretation [...] code = 1819) 21.0 % HEMOGLOBIN AND [id number] 00:36:00 Test Item Value Reference Range Interpretation Comments HEMOGLOBIN (BEAKER) (test code = 9.7 GM/DL 11.2-15.7 L 410) HEMATOCRIT (BEAKER) (test code = 29.0 % 34.1-44.9 L 411) CT, [id number] 00:24:00FINAL REPORT EXAM: CT of the abdomen [...] interstitial edema cannot be excluded. Signed: Flor Griffiths [facility] Verified Date/Time: 12/07/2018 00:24:22 RAD, ABDOMEN/KUB, 1 VIEW [id number] 18:47:00Reason for exam:->abdominal distensionShould this be performed [...] seen on these supine images. Signed: Macey Phippseport Verified Date/Time: 12/06/2018 18:47:51 Reading Location: [address] Reading Room [id number] 18:17:00 Test Item Value Reference Range Interpretation Comments PHOSPHORUS (BEAKER) 3.0 mg/dL 2.3-4.7 Specimen slightly (test code = 604) hemolyzed BASIC METABOLIC [id number] 18:17:00 Test Item Value Reference Range Interpretation [...] PATIEN TS. RAD, CHEST, 1 VIEW, NON [id number] 18:15:00Reason for exam:->shortness of breathShould this be performed at the bedside?->YesFINAL REPORT History: Shortness of breath Comparison: 12/04/2018 Findings: Interval increase in horizontal linear opacities in the lower lungs bilaterally suggestive of subsegmental atelectasis or atypical pneumonitis. No pleural effusions or pneumothorax are identified. Cardiac shadow normal in size. No acute skeletal abnormalities are identified. Signed: Macey Phipps Adrian dugansunita Date/Time: 12/06/2018 18:15:51 Reading Location: [facility] [place] C013T Transitional Reading Room W/PLT COUNT & AUTO [id number] 18:00:00 Test Item Value Reference Range Interpretation [...] mmol/L 0.5-2.2 (test code = 2872) POCT-GLUCOSE [id number] 06:27:00 Test Item Value Reference Range Interpretation Comments POC-GLUCOSE METER 181 mg/dL 70-110 H TESTED AT [facility] 6720 (BEAKER) (test code = [place] 1538) [id number] 04:38:00 Test Item Value Reference Range Interpretation Comments PHOSPHORUS (BEAKER) 1.4 mg/dL 2.3-4.7 LL Specimen slightly (test code = 604) hemolyzed [id number] 04:33:00 Test Item Value Reference Range Interpretation Comments MAGNESIUM (BEAKER) 1.9 mg/dL 1.6-2.6 Specimen slightly (test code = 627) hemolyzed BASIC METABOLIC [id number] 04:33:00 Test Item Value Reference Range Interpretation [...] APPLICABLE FOR DIALYSIS PATIEN TS. HEPATIC FUNCTION [id number] 04:33:00 Test Item Value Reference Range Interpretation [...] 347) hemolyzed CBC W/PLT COUNT & AUTO [id number] 04:30:00 Test Item Value Reference Range Interpretation [...] 0-1 PERCENT (BEAKER) (test code = 2801) [id number] 04:29:00 Test Item Value Reference Range Interpretation [...] is 2.5-3.5 for patients wiht mechanical heart valves.[id number] 04:29:00 Test Item Value Reference Range Interpretation Comments FIBRINOGEN LEVEL (BEAKER) (test 218 mg/dl 225-434 L code = 658) POCT-GLUCOSE [id number] 00:18:00 Test Item Value Reference Range Interpretation Comments POC-GLUCOSE METER 153 mg/dL 70-110 H TESTED AT [facility] 67 [facility] (test code = ANALI Lorenzo [facility] 1538) [address] HEMOGLOBIN AND [id number] 00:17:00 Test Item Value Reference Range Interpretation Comments HEMOGLOBIN (BEAKER) (test code = 9.1 GM/DL 11.2-15.7 L 410) HEMATOCRIT (BEAKER) (test code = 27.7 % 34.1-44.9 L 411) POCT-GLUCOSE [id number] 18:00:00 Test Item Value Reference Range Interpretation Comments POC-GLUCOSE METER 177 mg/dL 70-110 H TESTED AT [place] [address] [facility] (test code = [facility] 1538) [address] BASIC METABOLIC [id number] 13:48:00 Test Item Value Reference Range Interpretation [...] S NOT APPLICABLE FOR DIALYSIS PATIEN TS. [id number] 13:45:00 Test Item Value Reference Range Interpretation Comments PHOSPHORUS (BEAKER) (test code = 2.1 mg/dL 2.3-4.7 L 604) HEMOGLOBIN AND [id number] 13:30:00 Test Item Value Reference Range Interpretation Comments HEMOGLOBIN (BEAKER) (test code = 6.9 GM/DL 11.2-15.7 L 410) HEMATOCRIT (BEAKER) (test code = 21.5 % 34.1-44.9 L 411) POCT-GLUCOSE [id number] 12:17:00 Test Item Value Reference Range Interpretation Comments POC-GLUCOSE METER 179 mg/dL 70-110 H TESTED AT [facility] 6720 (BEAKER) (test code = ANALI Lorenzo [place] 1538) [id number] CBC W/PLT COUNT & AUTO [id number] 10:50:00 Test Item Value Reference Range Interpretation [...] 3438) Received comment: User comments: Slide comments:POCT-GLUCOSE [id number] 06:14:00 Test Item Value Reference Range Interpretation Comments POC-GLUCOSE METER 173 mg/dL 70-110 H TESTED AT [facility] 6720 (BEAKER) (test code = ANALI [place] 1538) [address] U/S, ABDOMINAL, WITH [id number] 05:32:00Reason for exam:->evaluate portal vein, evaluate biliary system, evaluate for cirrhosisFINAL REPORT INDICATION: evaluate portal vein, evaluate biliary system, evaluat e for cirrhosis COMPARISON: None TECHNIQUE: Real-time davis-scale transabdominal and color and spectral Doppler ultrasound. FINDINGS:Liver: Size: 14.4cm. Echogenicity: Increased parenchymal echogenicity.. Masses/lesions: None. Surface Nodularity: Nodular contour.. Intrahepatic bile ducts: Normal. Common bile duct: 0.4cm. MPV: 0.8cm. Gallbladder: Not identified. Pancreas: Head and uncinate process: Notwell-seen secondary to poor acoustic windowing.. Body and tail: Not well-seen. Spleen: Size: 10.1cm.Echogenicity: Unremarkable. Right kidney: Size: And 0.3 x 4.5 x 5.2 cm. Parenchyma: Normal echogenicity. No cysts. No stones. Hydronephrosis: None. Left kidney: Size: 10.4 x 5.0 x 5.0 cm. Parenchyma: Normal echogenicity. No cysts. No stones. Hydronephrosis: None. Ascites: Small volume intra-abdominal ascites. The aorta measures 2.5 cm proximally, 2.1 cm midportion, distally not well seen secondary topoor acoustic windowing.. Regional Vasculature: The visible abdominal aorta, IVC and hepatic veins are patent. Color and Spectral imaging:MPV: Diameter: 0.8 Flow: Hepatopedal. Velocity: 24.3 cm/sec Filling defects: NoneLeft and right portal veins: Patent. Flow: Antegrade Filling defects: None. Hepaticarteries: Patent RI proper hepatic: 0.7 RI right hepatic: 0.7 RI left hepatic: 0.8 IVC, Hepatic venous confluence, right HV, middle HV and left HV are patent. Additional findings: None. IMPRESSION: Hepatic steatosis with nodular contour is severe hepatocellular dysfunction. Small volume intra-abdominal ascites. Unremarkable hepatic Doppler. Gallbladder is not identified on this examination. Signed: Carol Fernándezepjuan antonio Verified Date/Time: 12/05/2018 05:32:17 C METABOLIC [id number] 04:35:00 Test Item Value Reference Range Interpretation [...] S NOT APPLICABLE FOR DIALYSIS PATIEN TS. [id number] 04:34:00 Test Item Value Reference Range Interpretation Comments PHOSPHORUS (BEAKER) (test code = 2.0 mg/dL 2.3-4.7 L 604) [id number] 04:34:00 Test Item Value Reference Range Interpretation Comments MAGNESIUM (BEAKER) (test code = 2.1 mg/dL 1.6-2.6 627) HEPATIC FUNCTION [id number] 04:34:00 Test Item Value Reference Range Interpretation [...] code = 549 U/L 6-55 H 347) [id number] 04:15:00 Test Item Value Reference Range Interpretation Comments AMMONIA (BEAKER) (test code = 348) 97 mol/L 18-72 H LACTIC ACID, [id number] 04:10:00 Test Item Value Reference Range Interpretation Comments LACTATE BLOOD VENOUS (2) (BEAKER) 2.6 mmol/L 0.5-2.2 H (test code = 2872) [id number] 03:54:00 Test Item Value Reference Range Interpretation [...] is 2.5-3.5 for patients wiht mechanical heart valves.[id number] 03:54:00 Test Item Value Reference Range Interpretation Comments FIBRINOGEN LEVEL (BEAKER) (test 188 mg/dl 225-434 L code = 658) POCT-GLUCOSE [id number] 00:17:00 Test Item Value Reference Range Interpretation Comments POC-GLUCOSE METER 185 mg/dL 70-110 H TESTED AT [facility] 6720 (BEAKER) (test code = [place] 1538) [address] HEMOGLOBIN AND [id number] 21:43:00 Test Item Value Reference Range Interpretation Comments HEMOGLOBIN (BEAKER) (test code = 8.1 GM/DL 11.2-15.7 L 410) HEMATOCRIT (BEAKER) (test code = 24.3 % 34.1-44.9 L 411) [id number] 19:32:00 Test Item Value Reference Range Interpretation Comments FERRITIN (BEAKER) (test code = 2039 ng/mL 5-275 H 361) T4, [id number] 18:58:00 Test Item Value Reference Range Interpretation [...] = 3438) Received comment: User comments: Slide comments:[id number] 18:41:00 Test Item Value Reference Range Interpretation Comments PROCALCITONIN (BEAKER) (test code 0.20 ng/mL <0.05 H = 3036) SEPSIS RISK (ng/mL)Low: 0.05-0.50Intermediate: 0.51-2.00High: >=2.01HEPATITIS A ANTIBODY, [id number] 18:27:00 Test Item Value Reference Range Interpretation Comments HEPATITIS A IGG ANTIBODY (BEAKER) Reactive Nonreactive A (test code = 2797) HEPATITIS B SURFACE [id number] 18:26:00 Test Item Value Reference Range Interpretation Comments HEPATITIS B SURFACE ANTIBODY < mIU/mL <8.0 (BEAKER) (test code = 647) TSH/FREE T4 IF [id number] 18:26:00 Test Item Value Reference Range Interpretation Comments THYROID STIMULATING HORMONE 0.08 uIU/mL 0.35-4.94 L (BEAKER) (test code = 772) ALPHA FETOPROTEIN (AFP), TUMOR [id number] 18:26:00 Test Item Value Reference Range Interpretation Comments ALPHA-FETOPROTEIN (BEAKER) (test 2.2 ng/mL <10.0 code = 1094) HEPATITIS A ANTIBODY, [id number] 18:26:00 Test Item Value Reference Range Interpretation Comments HEPATITIS A IGM ANTIBODY (BEAKER) Nonreactive Nonreactive (test code = 498) HEPATITIS B CORE ANTIBODY, [id number] 18:26:00 Test Item Value Reference Range Interpretation Comments HEPATITIS B CORE TOTAL ANTIBODY Nonreactive Nonreactive (BEAKER) (test code = 497) HEPATITIS B SURFACE [id number] 18:23:00 Test Item Value Reference Range Interpretation Comments HEPATITIS B SURFACE ANTIGEN (2) Nonreactive Nonreactive (BEAKER) (test code = 2585) HEPATITIS C [id number] 18:23:00 Test Item Value Reference Range Interpretation Comments HEPATITIS C ANTIBODY (BEAKER) Nonreactive Nonreactive (test code = 367) RAD, CHEST, 1 VIEW, NON [id number] 18:18:00Reason for exam:->hypoxemiaIs the patient ?->NoShould this [...] Palacios MDReport Verified Date/Time: 12/04/2018 18:18:54 ReadingLocation: [facility] B1 C013W Consult Reading Room CBC W/PLT COUNT & AUTO [id number] 18:17:00 Test Item Value Reference Range Interpretation [...] H (test code = 700) COMPREHENSIVE METABOLIC [id number] 18:08:00 Test Item Value Reference Range Interpretation [...] S NOT APPLICABLE FOR DIALYSIS PATIEN TS. [id number] 18:07:00 Test Item Value Reference Range Interpretation Comments PHOSPHORUS (BEAKER) (test code = 2.2 mg/dL 2.3-4.7 L 604) [id number] 18:07:00 Test Item Value Reference Range Interpretation Comments MAGNESIUM (BEAKER) (test code = 2.0 mg/dL 1.6-2.6 627) CHLORIDE, RANDOM [id number] 18:03:00 Test Item Value Reference Range Interpretation Comments CHLORIDE URINE (BEAKER) (test code = 58 meq/L 682) Reference Range: No NormalsCREATININE, RANDOM [id number] 18:03:00 Test Item Value Reference Range Interpretation Comments CREATININE URINE (BEAKER) (test 90.3 mg/dL code = 375) Reference Range: No NormalsPROTEIN, RANDOM [id number] 18:03:00 Test Item Value Reference Range Interpretation Comments PROTEIN, URINE (BEAKER) (test code = 17 mg/dL 0-14 H 1569) SODIUM, RANDOM [id number] 18:03:00 Test Item Value Reference Range Interpretation Comments SODIUM URINE (BEAKER) (test code = < meq/L 243) Reference Range: No [id number] 18:02:00 Test Item Value Reference Range Interpretation [...] code = 2590) RAD, ABDOMEN/KUB, 1 VIEW [id number] 18:00:00Reason for exam:->abdominal distentionShould this be performed [...] MDReport Verified Date/Time: 12/04/2018 18:00:28 Reading Location: [facility] C013W Consult Reading Room Electronicallysigned by: MARIO PALACIOS M.D. on 12/04/2018 06:00 PMLACTIC ACID, [id number] 17:59:00 Test Item Value Reference Range Interpretation Comments LACTATE BLOOD VENOUS 5.4 mmol/L 0.5-2.2 H Specime n slightly (2) (BEAKER) (test hemolyzed code = 2872) URINALYSIS W/ REFLEX URINE [id number] 17:57:00 Test Item Value Reference Range Interpretation [...] 1574) Rare SOURCE(BEAKER) (test code = 2795) [id number] 17:57:00 Test Item Value Reference Range Interpretation [...] is 2.5-3.5 for patients wiht mechanical heart valves.[id number] 17:57:00 Test Item Value Reference Range Interpretation Comments FIBRINOGEN LEVEL (BEAKER) (test 224 mg/dl 225-434 L code = 658) BLOOD GAS, [id number] 17:46:00 Test Item Value Reference Range Interpretation [...]
[2023-01-31] MEDS ORDERED: CYCLOBENZAPRINE 10 MG TAB ONE (12:26)
[2023-01-31] MEDS ORDERED: KETOROLAC 30 MG/ML INJ ONE (12:26)
[2023-01-31] MEDS ORDERED: ONDANSETRON 4 MG (ODT) TAB ONE (12:42)
[2023-01-31] MEDS ORDERED: MORPHINE 4 MG/ML SYR ONE ×2 (13:06→15:58)
[2023-01-31 13:14] LABS: Absolute Lymphocytes (CBC) 1.5 K/uL (0.7-4.9); Hematocrit 44.3 % (36.0-45.0); Lymphocytes % 26.2 % (15.3-44.8); MCV 95.3 fL (80-100); MPV 9.5 fL (7.6-11.3); Platelets 146 thou/uL (152-406); RBC Red Blood Cell Count 4.65 M/uL (3.86-4.86)
[2023-01-31] MEDS ORDERED: HYDRALAZINE HCL 20 MG/ML VIAL ONE (13:26)
[2023-01-31 13:32] LABS: Potassium 3.9 mEq/L (3.5-5.1); Troponin High Sensitivity 46.7 pg/mL (<58.9)
--- NOTE | 2023-01-31 14:36 | RAD REPORT ---
EXAM DESCRIPTION: Favio Single View01/31/2023 2:12 pm CLINICAL HISTORY: Chest pain COMPARISON: May 2022 FINDINGS: The lungs appear clear of acute infiltrate. The heart is normal size IMPRESSION: No acute abnormalities displayed
--- NOTE | 2023-01-31 15:46 | ER ---
Nurse's Notes [facility] Name: Kaitlyn Sesay Age: 62 yrs Sex: Female : 1960 Arrival Date: 01/31/2023 Time: 11:15 Bed 10 Private MD: Diagnosis: Other secondary pulmonary hypertension;Radiculopathy, lumbar region Presentation: 01/31 11:48 Chief complaint: Left low back pain that radiates to leg x 3 days, home BP 197/105. hb Coronavirus screen: At this time, the client does not indicate any symptoms associated with coronavirus-19. Ebola Screen: No symptoms or risks identified at this time. Initial Sepsis Screen: Does the patient meet any 2 criteria? No. Patient's initial sepsis screen is negative. Does the patient have a suspected source of infection? No. Patient's initial sepsis screen is negative. Risk Assessment: Do you want to hurt yourself or someone else? Patient reports no desire to harm self or others. Onset of symptoms was January 28, 2023. 11:48 Method Of Arrival: Ambulatory hb 11:48 Acuity: VIKRAM 3 hb Historical: - Allergies: 11:50 Azithromycin; hb 11:50 Cephalexin; hb 11:50 PENICILLINS; hb 11:50 Rocephin; hb 11:50 Rofecoxib; hb 11:50 Sulfa (Sulfonamide Antibiotics); hb - PMHx: 11:50 Hypercholesterolemia; liver failure; Thyroid problem; Hypertensive disorder; Chronic hb pain; GI Bleed; - Immunization history:: Adult Immunizations up to date. - Social history:: Smoking status: Patient denies any tobacco usage or history of. Screenin:25 [facility] ED Fall Risk Assessment (Adult) History of falling in the last 3 months, mb9 including since admission No falls in past 3 months (0 pts) Confusion or Disorientation No (0 pts) Intoxicated or Sedated No (0 pts) Impaired Gait No (0 pts) Mobility Assist Device Used No (0 pt) Altered Elimination No (0 pt) Score/Fall Risk Level 0 - 2 = Low Risk Oriented to surroundings, Maintained a safe environment, Educated pt \T\ family on fall prevention, incl call for assistance when getting out of bed. Abuse screen: Denies threats or abuse. Nutritional screening: No deficits noted. Tuberculosis screening: No symptoms or risk factors identified. Assessment: 12:24 General: Appears uncomfortable, Behavior is cooperative. Pain: Complains of pain in mb9 back Pain radiates to left leg Pain currently is 10 out of 10 on a pain scale. Quality of pain is described as sharp, shooting, throbbing, Pain began 2-3 days ago. Is continuous, Aggravated by increased activity, repositioning, weight bearing. Neuro: Castro Agitation-Sedation Scale (RASS): 0 - Alert and Calm Level of Consciousness is awake, alert, obeys commands, Oriented to person, place, time, situation, Appropriate for age. Cardiovascular: Patient's skin is warm and dry. Respiratory: Airway is patent Respiratory effort is even, unlabored, Respiratory pattern is regular, symmetrical. GI: No signs and/or symptoms were reported involving the gastrointestinal system. : No signs and/or symptoms were reported regarding the genitourinary system. EENT: No signs and/or symptoms were reported regarding the EENT system. Derm: Skin is pink, warm \T\ dry. Musculoskeletal: Range of motion: intact in all extremities. 12:55 Reassessment: ERP notified of pts BP of 207/100. New orders at this time. mb9 13:39 Reassessment: No changes from previously documented assessment. Patient and/or family mb9 updated on plan of care and expected duration. Pain level reassessed. Patient is alert, oriented x 3, equal unlabored respirations, skin warm/dry/pink. 14:42 Reassessment: Patient and/or family updated on plan of care and expected duration. Pain mb9 level reassessed. Patient is alert, oriented x 3, equal unlabored respirations, skin warm/dry/pink. Patient states feeling better. Patient states symptoms have improved. Vital Signs: 11:48 BP 155 / 110; Pulse 65; Resp 18; Temp 97.5(O); Pulse Ox 98% on R/A; Pain 8/10; hb 12:54 BP 207 / 100; Pulse 60; Resp 16; Pulse Ox 100% on R/A; Pain 10/10; mb9 13:10 BP 191 / 91; Pulse 59; Resp 18; Pulse Ox 100% on R/A; mb9 13:39 BP 159 / 91; Pulse 69; Resp 16; Pulse Ox 99% on R/A; mb9 15:22 BP 147 / 84; Pulse 65; Resp 18; Pulse Ox 100% on R/A; mb9 16:00 BP 148 / 78; Pulse 62; Resp 15; Pulse Ox 100% on R/A; Pain 2/10; mb9 11:48 Pain Scale: Adult hb 12:54 Pain Scale: Adult mb9 16:00 Pain Scale: Adult mb9 ED Course: 11:18 Patient arrived in ED. rg4 11:25 [facility] jh7 11:25 Jori Mathis MD is Attending Physician. jh7 11:50 Triage completed. hb 11:50 Arm band placed on. hb 12:00 EKG done, by ED staff, reviewed by Marielena MORALES. mb9 12:13 Estelita Henson, SRI is Primary Nurse. mb9 12:25 Placed in gown. Bed in low position. Call light in reach. Side rails up X 1. Client mb9 placed on continuous cardiac and pulse oximetry monitoring. NIBP monitoring applied. 12:25 No provider procedures requiring assistance completed. Patient did not have IV access mb9 during this emergency room visit. 13:06 Troponin HS Sent. mb9 13:06 Basic Metabolic Panel Sent. mb9 13:06 CBC with Diff Sent. mb9 13:07 Inserted saline lock: 22 gauge in right hand, using aseptic technique. mb9 14:14 XRAY Chest (1 view) In Process Unspecified. EDMS Administered Medications: 12:23 Drug: Ketorolac IM 60 mg Route: IM; Site: right gluteus; mb9 12:45 Follow up: Response: No adverse reaction mb9 12:23 Drug: Cyclobenzaprine PO 10 mg Route: PO; mb9 12:44 Follow up: Response: No adverse reaction mb9 12:31 Drug: Ondansetron PO 4 mg Route: PO; mb9 12:44 Follow up: Response: No adverse reaction mb9 13:06 Drug: morphine IVP or IV 4 mg Route: IVP; Infused Over: 4 mins; Site: right hand; mb9 13:18 Follow up: Response: No adverse reaction mb9 13:18 Drug: hydrALAZINE IVP 10 mg Route: IVP; Site: right hand; mb9 15:43 Follow up: Response: No adverse reaction mb9 15:44 Drug: morphine IVP or IV 4 mg Route: IVP; Infused Over: 4 mins; Site: right hand; mb9 15:52 Follow up: Response: No adverse reaction mb9 Medication: 12:25 VIS not applicable for this client. mb9 Outcome: 15:46 Discharge ordered by . cp3 16:00 Discharged to home ambulatory, with family. mb9 16:00 Condition: stable 16:00 Discharge instructions given to patient, family, Instructed on discharge instructions, follow up and referral plans. Demonstrated understanding of instructions, follow-up care. 16:01 Patient left the ED. mb9 Signatures: Dispatcher [employer] Andria Orozco MD MD cp3 Debbie Harrison, RN RN Dayanara Moser 4 Marielena Crook FNP FNP 7 Estelita Henson RN RN mb9
--- NOTE | 2023-01-31 15:46 | EDPHYS ---
Physician Documentation [facility] Name: Kaitlyn Sesay Age: 62 yrs Sex: Female : 1960 Arrival Date: 01/31/2023 Time: :15 Bed 10 Private MD: ED Physician Jori Mathis HPI: 01/31 11:52 This 62 yrs old Female presents to ER via Ambulatory with complaints of High Blood jh7 Pressure. 11:52 The patient has elevated blood pressure and discovered this at home, with a home jh7 device. Onset: The symptoms/episode began/occurred 3 day(s) ago. Associated signs and symptoms: Pertinent negatives: chest pain, dizziness, dyspnea, headache, lightheadedness, nausea, visual changes, vomiting. Severity of symptoms: At its worst the blood pressure was 190 mm Hg. Patient complains of left sciatica pain for the past 3 days. She also reports that her blood pressure has increased as the pain is progressed. History of hypertension. No other symptoms at this time.. Historical: - Allergies: 11:50 Azithromycin; hb 11:50 Cephalexin; hb 11:50 PENICILLINS; hb 11:50 Rocephin; hb 11:50 Rofecoxib; hb 11:50 Sulfa (Sulfonamide Antibiotics); hb - PMHx: 11:50 Hypercholesterolemia; liver failure; Thyroid problem; Hypertensive disorder; Chronic hb pain; GI Bleed; - Immunization history:: Adult Immunizations up to date. - Social history:: Smoking status: Patient denies any tobacco usage or history of. ROS: 11:52 Constitutional: Negative for fever, chills, and weight loss, Eyes: Negative for injury, jh7 pain, redness, and discharge, Neck: Negative for injury, pain, and swelling, Cardiovascular: Negative for chest pain, palpitations, and edema, Respiratory: Negative for shortness of breath, cough, wheezing, and pleuritic chest pain, Back: Negative for injury and pain, Skin: Negative for injury, rash, and discoloration, Neuro: Negative for headache, weakness, numbness, tingling, and seizure. 11:52 MS/extremity: Positive for pain, of the left leg. 11:52 All other systems are negative. Exam: 11:52 Constitutional: This is a well developed, well nourished patient who is awake, alert, jh7 and in no acute distress. Eyes: Pupils equal round and reactive to light, extra-ocular motions intact. Lids and lashes normal. Conjunctiva and sclera are non-icteric and not injected. Cornea within normal limits. Periorbital areas with no swelling, redness, or edema. Neck: Trachea midline, no thyromegaly or masses palpated, and no cervical lymphadenopathy. Supple, full range of motion without nuchal rigidity, or vertebral point tenderness. No Meningismus. Cardiovascular: Regular rate and rhythm with a normal S1 and S2. No gallops, murmurs, or rubs. Normal PMI, no JVD. No pulse deficits. Respiratory: Lungs have equal breath sounds bilaterally, clear to auscultation and percussion. No rales, rhonchi or wheezes noted. No increased work of breathing, no retractions or nasal flaring. Abdomen/GI: Soft, non-tender, with normal bowel sounds. No distension or tympany. No guarding or rebound. No evidence of tenderness throughout. Skin: Warm, dry with normal turgor. Normal color with no rashes, no lesions, and no evidence of cellulitis. Neuro: Awake and alert, GCS 15, oriented to person, place, time, and situation. 11:52 Musculoskeletal/extremity: ROM: intact in all extremities, Circulation is intact in all extremities. Sensation intact. Left glute pain radiating down left leg, worsening with movement. Vital Signs: 11:48 BP 155 / 110; Pulse 65; Resp 18; Temp 97.5(O); Pulse Ox 98% on R/A; Pain 8/10; hb 12:54 BP 207 / 100; Pulse 60; Resp 16; Pulse Ox 100% on R/A; Pain 10/10; mb9 13:10 BP 191 / 91; Pulse 59; Resp 18; Pulse Ox 100% on R/A; mb9 13:39 BP 159 / 91; Pulse 69; Resp 16; Pulse Ox 99% on R/A; mb9 15:22 BP 147 / 84; Pulse 65; Resp 18; Pulse Ox 100% on R/A; mb9 16:00 BP 148 / 78; Pulse 62; Resp 15; Pulse Ox 100% on R/A; Pain 2/10; mb9 11:48 Pain Scale: Adult hb 12:54 Pain Scale: Adult mb9 16:00 Pain Scale: Adult mb9 MDM: 11:[address] [facility] [place] 15:46 Data reviewed: vital signs, nurses notes, EMS record, [facility] records, lab test cp3 result(s), EKG, radiologic studies. 01/31 12:53 Order name: Basic Metabolic Panel; Complete Time: 13:34 [facility] [place] 01/31 12:53 Order name: CBC with Diff; Complete Time: 13:21 [facility] [place] 01/31 12:53 Order name: Troponin HS; Complete Time: 13:34 [facility] [place] 01/31 12:53 Order name: XRAY Chest (1 view); Complete Time: 15:44 [facility] [place] 01/31 11:54 Order name: EKG - Nurse/Tech; Complete Time: 12:13 [facility] [place] 01/31 12:42 Order name: Recheck Blood Pressure; Complete Time: 12:55 [facility] [place] 01/31 12:53 Order name: Cardiac monitoring; Complete Time: 12:55 [facility] [place] 01/31 12:53 Order name: IV Saline Lock; Complete Time: 13:06 [facility] [place] 01/31 12:53 Order name: Labs collected and sent; Complete Time: 13:06 [facility] [place] 01/31 12:53 Order name: O2 Per Protocol; Complete Time: 12:55 [facility] [place] 01/31 12:53 Order name: O2 Sat Monitoring; Complete Time: 12:55 [facility] [place] EC:03 Rate is 56 beats/min. Rhythm is regular. QRS [place] is Normal. SC interval is normal at 7 152 msec. QRS interval is normal at 86 msec. QT interval is normal at 424 msec. No Q waves. T waves are Normal. Clinical impression: Sinus bradycardia. Administered Medications: 12:23 Drug: Ketorolac IM 60 mg Route: IM; Site: right gluteus; mb9 12:45 Follow up: Response: No adverse reaction mb9 12:23 Drug: Cyclobenzaprine PO 10 mg Route: PO; mb9 12:44 Follow up: Response: No adverse reaction mb9 12:31 Drug: Ondansetron PO 4 mg Route: PO; mb9 12:44 Follow up: Response: No adverse reaction mb9 13:06 Drug: morphine IVP or IV 4 mg Route: IVP; Infused Over: 4 mins; Site: right hand; mb9 13:18 Follow up: Response: No adverse reaction mb9 13:18 Drug: hydrALAZINE IVP 10 mg Route: IVP; Site: right hand; mb9 15:43 Follow up: Response: No adverse reaction mb9 15:44 Drug: morphine IVP or IV 4 mg Route: IVP; Infused Over: 4 mins; Site: right hand; mb9 15:52 Follow up: Response: No adverse reaction mb9 Disposition: 15:46 I reviewed the patient's care provided by Advanced Practice Provider \T\ agree w/ the cp3 diagnosis \T\ care plan. I personally saw the pt \T\ performed a substantive portion of the visit, incldng all aspects of the (History/Exam/Medical Decision Making). Disposition Summary: 01/31/23 15:46 Discharge Ordered Location: Home cp3 Condition: Stable cp3 Diagnosis - Other secondary pulmonary hypertension cp3 - Radiculopathy, lumbar region cp3 Discharge Instructions: - Discharge Summary Sheet cp3 - Hypertension, Adult cp3 - Radicular Pain cp3 Forms: - Medication Reconciliation Form cp3 - Thank You Letter cp3 - Antibiotic Education cp3 - Prescription Opioid Use cp3 - Patient Portal Instructions cp3 - Leadership Thank You Letter cp3 Signatures: Dispatcher [employer] Andria Orozco MD MD cp3 Debbie Harrison, RN RN Marielena Alonzo FNP FNP [facility] [place] Estelita Henson RN RN mb9
[2023-01-31 16:15] VITALS: TEMP 97.5
[2023-01-31 16:28] VITALS: O2SAT 100
[2023-01-31 16:30] VITALS: BP 148/78
--- NOTE | 2023-02-01 18:46 | EKG ---
Test Date: 2023-01-31 Test Time: 12:03:08 Township Supervisor: PABLO MEASUREMENT RESULTS: Intervals: Rate: 56 [place]: 152 QRSD: 86 QT: 424 QTc: 409 [place]: P: 43 [place]: 152 QRS: 77 T: 58 INTERPRETIVE STATEMENTS: Sinus bradycardia Nonspecific ST abnormality Abnormal ECG Compared to ECG 06/21/2022 10:55:53 ST (T wave) deviation now present Electronically Signed On 02-01-23 18:43:07 CDT by Michael Chávez
== END 2023-01-31 16:01 | disposition home or self-care (01) ==
LOC: ER 11:15
DX: I27.29 Other secondary pulmonary hypertension (principal); M54.16 Radiculopathy, lumbar region; E78.00 Pure hypercholesterolemia, unspecified; Z88.0 Allergy status to penicillin; Z88.2 Allergy status to sulfonamides; Z88.3 Allergy status to other anti-infective agents
CPT/HCPCS: 93005; 85025; 80048; 36415; 84484; 71045; 96375; 96372; 96374; 99284; Q0162; J0360

== ENCOUNTER 2023-07-04 14:44 | Observation (INO) | payer OTHER ==
--- NOTE | 2023-07-04 15:55 | RAD REPORT ---
EXAM DESCRIPTION: RAD - Chest Single View - 07/04/2023 3:47 pm CLINICAL HISTORY: COUGH Chest pain. COMPARISON: Chest Single View dated 01/31/2023; Chest Single View dated 06/21/2022; Chest Single View d ated 05/27/2022; Chest Single View dated 07/18/2019 FINDINGS: Portable technique limits examination quality. Interstitial markings are mildly prominent likely indicating underlying bronchitis or viral infection . The heart is upper limit of normal in size. No displaced fractures.
[2023-07-04] MEDS ORDERED: NA CHLORIDE 0.9% 2,000 ML ONE (16:01)
[2023-07-04] MEDS ORDERED: LEVALBUTEROL 1.25 MG/3 ML NEB ONE (16:01)
[2023-07-04 16:13] LABS: Albumin 3.1 g/dL (3.4-5.0); Bilirubin Total 0.7 mg/dL (0.2-1.0); Potassium 4.6 mEq/L (3.5-5.1); Protein, Total 7.7 g/dL (6.4-8.2)
[2023-07-04 16:21] LABS: Absolute Lymphocytes (CBC) 1.8 K/uL (0.7-4.9); Hematocrit 38.2 % (36.0-45.0); Lymphocytes % 31.6 % (15.3-44.8); MCV 95.2 fL (80-100); MPV 10.2 fL (7.6-11.3); Platelets 144 thou/uL (152-406); RBC Red Blood Cell Count 4.01 M/uL (3.86-4.86)
--- NOTE | 2023-07-04 17:52 | RAD REPORT ---
EXAM DESCRIPTION: CT - Chest For Pe Angio - 07/04/2023 5:36 pm CLINICAL HISTORY: Chest pain. Cough;Dyspnea COMPARISON: <Comparisons> TECHNIQUE: CT angiogram of the pulmonary arteries was performed with MIP. All CT scans are performed using dose optimization technique as appropriate and may include automated exposure control or mA/KV adjustment according to patient size. FINDINGS: No evidence of pulmonary thromboembolism. No acute aortic finding demonstrated. Prominent diffuse COPD. Areas of ground-glass opacity bilaterally likely representing alveolitis/infe ction. No significant pericardial or pleural fluid. Mildly enlarged lymph nodes in the mediastinum. No concerning bony finding. Mild liver cirrhosis. IMPRESSION: No evidence of pulmonary thromboembolism. Prominent COPD.
--- NOTE | 2023-07-04 19:18 | ER ---
Nurse's Notes [facility] Name: Kaitlyn Sesay Age: 63 yrs Sex: Female : 1960 Arrival Date: 07/04/2023 Time: 14:44 Bed 19 Private MD: Diagnosis: Shortness of breath;COPD/ Chronic obstructive pulmonary disease with (acute) exacerbation;SARS-associated coronavirus as the cause of diseases classified elsewhere Presentation: 07/04 15:00 Chief complaint: Patient states: she tested positive for COVID 07/02/2023, and today had ap3 a near syncopal episode. patient also states she started paxlovid today. patient reports a headache, light headedness and dizziness on standing. Coronavirus screen: At this time, the client does not indicate any symptoms associated with coronavirus-19. Ebola Screen: No symptoms or risks identified at this time. Initial Sepsis Screen: Does the patient meet any 2 criteria? No. Patient's initial sepsis screen is negative. Does the patient have a suspected source of infection? No. Patient's initial sepsis screen is negative. Risk Assessment: Do you want to hurt yourself or someone else? Patient reports no desire to harm self or others. Onset of symptoms is unknown. 15:00 Method Of Arrival: Ambulatory ap3 15:02 Acuity: VIKRAM 3 ap3 Triage Assessment: 15:03 General: Appears in no apparent distress. Behavior is calm, cooperative, appropriate ap3 for age. Pain: Complains of pain in headache. Neuro: Level of Consciousness is awake, alert, obeys commands, Oriented to person, place, time, situation, Appropriate for age Reports dizziness, headache a syncopal episode. Cardiovascular: Patient's skin is warm and dry. Respiratory: Reports shortness of breath cough that is Airway is patent Respiratory effort is even, unlabored, Respiratory pattern is regular, symmetrical, Onset: The symptoms/episode began/occurred gradually, the patient has mild shortness of breath. Historical: - Allergies: 15:02 Azithromycin; ap3 15:02 Cephalexin; ap3 15:02 PENICILLINS; ap3 15:02 Rocephin; ap3 15:02 Rofecoxib; ap3 15:02 Sulfa (Sulfonamide Antibiotics); ap3 - PMHx: 15:02 Chronic pain; GI Bleed; Hypercholesterolemia; Hypertensive disorder; liver failure; ap3 Thyroid problem; - Immunization history:: Client reports receiving the 2nd dose of the Covid vaccine. - Social history:: Smoking status: Patient reports the use of cigarette tobacco products, smokes one-half pack cigarettes per day. Screenin:04 [facility] ED Fall Risk Assessment (Adult) History of falling in the last 3 months, ap3 including since admission No falls in past 3 months (0 pts). Abuse screen: Denies threats or abuse. Nutritional screening: No deficits noted. Tuberculosis screening: No symptoms or risk factors identified. Assessment: 15:09 General: Appears uncomfortable, ill, well groomed, well developed, well nourished, me1 Behavior is calm, cooperative, appropriate for age, Reports. Pain: Denies pain. Neuro: Level of Consciousness is awake, alert, obeys commands, Oriented to person, place, time, situation, Appropriate for age Reports dizziness, headache she tested positive for COVID 07/02/2023, and today had a near syncopal episode. patient also states she started paxlovid today. patient reports a headache, light headedness and dizziness on standing. Cardiovascular: Capillary refill < 3 seconds Patient's skin is warm and dry. Respiratory: Airway is patent Trachea midline Respiratory effort is even, unlabored, Respiratory pattern is regular, symmetrical. 16:43 Reassessment: No changes from previously documented assessment. Patient and/or family ap3 updated on plan of care and expected duration. Pain level reassessed. 22:00 General: Appears in no apparent distress. comfortable, Behavior is calm, cooperative. jw7 22:00 Pain: Denies pain. Neuro: Level of Consciousness is awake, alert, obeys commands, jw7 Oriented to person, place, time, situation. Cardiovascular: Capillary refill < 3 seconds Patient's skin is warm and dry. Rhythm is sinus bradycardia. Respiratory: Airway is patent Trachea midline Respiratory effort is even, unlabored, Respiratory pattern is regular, symmetrical, Breath sounds are clear bilaterally. GI: Abdomen is flat, non-distended. : No deficits noted. No signs and/or symptoms were reported regarding the genitourinary system. EENT: No deficits noted. No signs and/or symptoms were reported regarding the EENT system. Derm: Skin is intact, is healthy with good turgor, Skin is dry, Skin is normal, Skin temperature is warm. Musculoskeletal: Circulation, motion, and sensation intact. Range of motion: intact in all extremities. Vital Signs: 15:02 BP 91 / 55; Pulse 57; Resp 17; Temp 97.6; Pulse Ox 98% on R/A; Weight 78.93 kg; Height ap3 5 ft. 6 in. ; 16:43 BP 95 / 61 RA; Pulse 49; ap3 17:45 BP 115 / 59; Pulse 55; Resp 18; Pulse Ox 97% on R/A; me1 18:30 BP 97 / 69 Supine; Pulse 53; me1 18:31 BP 92 / 48 Sitting; Pulse 57; me1 18:32 BP 80 / 45 Standing; Pulse 53; me1 22:00 BP 116 / 61; Pulse 53; Resp 15 S; Pulse Ox 98% on R/A; jw7 15:02 Body Mass Index 28.08 (78.93 kg, 167.64 cm) ap3 ED Course: 14:48 Patient arrived in ED. mg5 15:03 Triage completed. ap3 15:04 Arm band placed on right wrist. ap3 15:06 Clari Lewis, SRI is Primary Nurse. me1 15:08 Jamil Waters MD is Attending Physician. kdr 15:13 No provider procedures requiring assistance completed. me1 15:14 Patient has correct armband on for positive identification. Bed in low position. Call me1 light in reach. Side rails up X2. Provided Education on: POC. Verbalized understanding. . 15:34 Flu Sent. me1 15:34 COVID-19 SARS RT PCR Sent. me1 15:40 Inserted saline lock: 22 gauge in left forearm, using aseptic technique. Blood ap3 collected. 15:48 CXR XRAY In Process Unspecified. EDMS 17:38 CT Chest For PE Angio In Process Unspecified. EDMS 19:16 Mauro Benites MD is Hospitalizing Provider. kdr 19:45 Nicolas Beckett is Hospitalizing Provider. kdr 22:16 Patient admitted, IV remains in place. jw7 Administered Medications: 16:07 Drug: NS 0.9% IV 1000 ml IV at 1 bolus Per protocol; 1000 mL bolus Route: IV; Rate: 1 me1 bolus; Site: left forearm; 17:00 Follow up: IV Status: Completed infusion; IV Intake: 1000ml me1 16:07 Drug: Levalbuterol Inhalation 1.25 mg Inhalation once Route: Inhalation; me1 18:44 Follow up: Response: No adverse reaction; Wheezing diminished me1 16:08 Drug: NS 0.9% IV 1000 ml IV at 125 ml/hr continuous Route: IV; Rate: 125 ml/hr; Site: me1 left forearm; Medication: 15:14 VIS not applicable for this client. me1 Intake: 17:00 IV: 1000ml; Total: 1000ml. me1 Outcome: 19:17 Decision to Hospitalize by Provider. kdr 22:16 Admitted to ER Hold. Please see [facility] for further documentation. jw7 22:16 Condition: stable 22:16 Instructed on the need for admit, Demonstrated understanding of instructions, 02 11:52 Patient left the ED. bp Signatures: Dispatcher [employer] EDMS Jamil Waters MD MD kdr Beau Zambrano RN RN bp Keesha Mccarthy RN RN ap3 Ana María An RN RN 7 Clari Lewis RN RN me1 Danii Bravo mg5 Corrections: (The following items were deleted from the chart) 07/04 15:09 15:00 Chief complaint: Patient states: she tested positive for COVID 07/02/2023, and me1 today had a near syncopal episode. patient also states she started paxlovid today. patient reports a headache, light headedness and dizziness on standing ap3 15:38 15:00 Chief complaint: Patient states: she tested positive for COVID 07/02/2023, and me1 today had a near syncopal episode. patient also states she started paxlovid today. patient reports a headache, light headedness and dizziness on standing me1
--- NOTE | 2023-07-04 19:19 | EDPHYS ---
Physician Documentation [facility] Name: Kaitlyn Sesay Age: 63 yrs Sex: Female : 1960 Arrival Date: 07/04/2023 Time: 14:44 Bed 19 Private MD: ED Physician Jamil Waters HPI: 07/04 19:14 This 63 yrs old Female presents to ER via Ambulatory with complaints of Covid +, kdr Breathing Difficulty, Syncope. 19:14 Patient's been feeling ill since of last week. On Monday she took a COVID test kdr and was positive. Today she had a near syncopal episode when she was walking with her daughter. She is continue to have increasing shortness of breath. Patient states that she has had a history of an undiagnosed and undefined lung problem for the past year for which she has seen multiple doctors and had multiple test. Nothing has given a specific diagnosis. Patient did see a provider yesterday and was started on Paxlovid. She took her first dose this morning. Patient continues to have weakness, lightheadedness, dizziness on standing. Patient is otherwise nonacute appearing. It is noted that the patient is bradycardic with a rate in the 40s. Patient states that this is not her normal.. Onset: The symptoms/episode began/occurred gradually, 4 day(s) ago. Severity of symptoms: At their worst the symptoms were mild moderate just prior to arrival. The patient has experienced similar episodes in the past, but today's symptoms are worse, More significant. The patient has not recently seen a physician. Historical: - Allergies: 15:02 Azithromycin; ap3 15:02 Cephalexin; ap3 15:02 PENICILLINS; ap3 15:02 Rocephin; ap3 15:02 Rofecoxib; ap3 15:02 Sulfa (Sulfonamide Antibiotics); ap3 - PMHx: 15:02 Chronic pain; GI Bleed; Hypercholesterolemia; Hypertensive disorder; liver failure; ap3 Thyroid problem; - Immunization history:: Client reports receiving the 2nd dose of the Covid vaccine. - Social history:: Smoking status: Patient reports the use of cigarette tobacco products, smokes one-half pack cigarettes per day. ROS: 19:14 Constitutional: Negative for fever, chills, and weight loss, Eyes: Negative for injury, kdr pain, redness, and discharge, ENT: Negative for injury, pain, and discharge, Neck: Negative for injury, pain, and swelling, Cardiovascular: Negative for chest pain, palpitations, and edema, Abdomen/GI: Negative for abdominal pain, nausea, vomiting, diarrhea, and constipation, Back: Negative for injury and pain, : Negative for injury, bleeding, discharge, and swelling, MS/Extremity: Negative for injury and deformity, Skin: Negative for injury, rash, and discoloration, Neuro: Negative for headache, weakness, numbness, tingling, and seizure activity. Psych: Negative for depression, anxiety, suicide ideation, homicidal ideation, and hallucinations, Allergy/Immunology: Negative for hives, rash, and allergies, Endocrine: Negative for neck swelling, polydipsia, polyuria, polyphagia, and marked weight changes, Hematologic/Lymphatic: Negative for swollen nodes, abnormal bleeding, and unusual bruising, 19:14 Respiratory: Positive for cough, with no reported sputum, dyspnea on exertion, shortness of breath, on exertion. Negative for hemoptysis, orthopnea, 19:14 Neuro: Positive for dizziness, near syncope, weakness, Negative for headache, hearing loss, loss of consciousness, numbness, seizure activity, speech changes, tremor, visual changes, Exam: 19:14 Constitutional: This is a well developed, well nourished patient who is awake, alert, kdr and in no acute distress. Head/Face: Normocephalic, atraumatic. Eyes: Pupils equal round and reactive to light, extra-ocular motions intact. Lids and lashes normal. Conjunctiva and sclera are non-icteric and not injected. Cornea within normal limits. Periorbital areas with no swelling, redness, or edema. Neck: Trachea midline, no thyromegaly or masses palpated, and no cervical lymphadenopathy. Supple, full range of motion without nuchal rigidity, or vertebral point tenderness. No Meningismus. Chest/axilla: Normal chest wall appearance and motion. Nontender with no deformity. No lesions are appreciated. Cardiovascular: Regular rate and rhythm with a normal S1 and S2. No gallops, murmurs, or rubs. Normal PMI, no JVD. No pulse deficits. Abdomen/GI: Soft, non-tender, with normal bowel sounds. No distension or tympany. No guarding or rebound. No evidence of tenderness throughout. Back: No spinal tenderness. No costovertebral tenderness. Full range of motion. Skin: Warm, dry with normal turgor. Normal color with no rashes, no lesions, and no evidence of cellulitis. MS/ Extremity: Pulses equal, no cyanosis. Neurovascular intact. Full, normal range of motion. Neuro: Awake and alert, GCS 15, oriented to person, place, time, and situation. Cranial nerves II-XII grossly intact. Motor strength 5/5 in all extremities. Sensory grossly intact. Cerebellar exam normal. Normal gait. Psych: Awake, alert, with orientation to person, place and time. Behavior, mood, and affect are within normal limits. Vital Signs: 15:02 BP 91 / 55; Pulse 57; Resp 17; Temp 97.6; Pulse Ox 98% on R/A; Weight 78.93 kg; Height ap3 5 ft. 6 in. ; 16:43 BP 95 / 61 RA; Pulse 49; ap3 17:45 BP 115 / 59; Pulse 55; Resp 18; Pulse Ox 97% on R/A; me1 18:30 BP 97 / 69 Supine; Pulse 53; me1 18:31 BP 92 / 48 Sitting; Pulse 57; me1 18:32 BP 80 / 45 Standing; Pulse 53; me1 22:00 BP 116 / 61; Pulse 53; Resp 15 S; Pulse Ox 98% on R/A; jw7 15:02 Body Mass Index 28.08 (78.93 kg, 167.64 cm) ap3 MDM: 19:14 Data reviewed: vital signs, nurses notes. kdr 19:17 Patient medically screened. kdr 07/04 15:09 Order name: CBC with Diff; Complete Time: 16:32 kdr 07/04 15:09 Order name: CMP; Complete Time: 16:32 kdr 07/04 15:10 Order name: COVID-19 SARS RT PCR; Complete Time: 16:32 kdr 07/04 15:10 Order name: Flu; Complete Time: 16:32 kdr 07/04 21:05 Order name: Basic Metabolic Panel EDMS 07/04 21:05 Order name: Basic Metabolic Panel EDMS 07/04 21:05 Order name: CBC with Automated Diff EDMS 07/04 21:05 Order name: CBC with Automated Diff EDMS 07/04 15:09 Order name: CXR XRAY; Complete Time: 16:32 kdr 07/04 17:11 Order name: CT Chest For PE Angio; Complete Time: 18:35 kdr 07/04 15:10 Order name: EKG - Nurse/Tech; Complete Time: 16:33 kdr 07/04 15:10 Order name: Orthostatic Blood Pressure; Complete Time: 18:44 kdr Administered Medications: 16:07 Drug: NS 0.9% IV 1000 ml IV at 1 bolus Per protocol; 1000 mL bolus Route: IV; Rate: 1 me1 bolus; Site: left forearm; 17:00 Follow up: IV Status: Completed infusion; IV Intake: 1000ml me1 16:07 Drug: Levalbuterol Inhalation 1.25 mg Inhalation once Route: Inhalation; tx1 18:44 Follow up: Response: No adverse reaction; Wheezing diminished me1 16:08 Drug: NS 0.9% IV 1000 ml IV at 125 ml/hr continuous Route: IV; Rate: 125 ml/hr; [place] [facility] [place] Disposition Summary: 07/04/23 19:17 Hospitalization Ordered Notes: Hospitalization Status: Inpatient Admission kdr Condition: Fair kdr Problem: new kdr Symptoms: have improved kdr Bed/Room Type: Standard kdr Provider: Nicolas Beckett(07/04/23 19:45) kdr Location: Telemetry/MedSurg (Inpatient)(07/05/23 10:54) Room Assignment: [facility](07/05/23 10:54) Diagnosis - Shortness of breath kdr - COPD/ Chronic obstructive pulmonary disease with (acute) exacerbation kdr - SARS-associated coronavirus as the cause of diseases classified elsewhere kdr Forms: - Medication Reconciliation Form kdr - SBAR form kdr - Leadership Thank You Letter kdr Signatures: Dispatcher [employer] EDKY Judy King bd Jamil Waters MD MD kdr Loli Johnson RN RN Keesha Jamil RN RN ap3 Clari Lewis RN RN me1 Corrections: (The following items were deleted from the chart) 19:32 19:17 Telemetry/MedSurg (Inpatient) kdr cg 19:32 19:17 kdr cg 19:45 19:17 Mauro Benites kdr kdr 07/05 10:54 02 19:32 [facility] ER HOLD cg bd 07/05 10:54 02/06 19:32 ERHOLD- cg bd
[2023-07-04] MEDS ORDERED: ACETAMINOPHEN 325 MG TABLET PO PRN (21:00)
[2023-07-04] MEDS: NA CHLORIDE 0.9% 1,000 ML IV SCH (21:00)
[2023-07-04 23:07] VITALS: BMI 28.0
--- NOTE | 2023-07-05 04:01 | P.HP ---
Certification for Inpatient Patient admitted to: Inpatient With expected LOS: >2 Midnights Practitioner: I am a practitioner with admitting privileges, knowledge of patient current condition, hospital course, and medical plan of care. Services: Services provided to patient in accordance with Admission requirements found in Title 42 Section 412.3 of the Code of Federal Regulations Patient History Date of Service: 07/05/23 Reason for admission: COVID-19 disease. History of Present Illness: 63-year-old female patient with medical history significant for hypertension, hypothyroidism was evaluated for episode of near syncopal episode and dizzy spells with weakness. She was diagnosed with COVID-19 disease self test at home couple of days ago and has had poor oral intake. She continues complain of worsening shortness of breath, lethargy, malaise and she came to the ED with findings of mild acute kidney injury and volume depletion. She was started on IV fluid, breathing tr eatment and supportive care with pain medication and was admitted for inpatient care. She denies nausea, vomiting, fever, chills, diarrhea. Allergies venom-honey bee [bee venom (honey bee)] Allergy (Intermediate, Verified 07/03/19 07:05) Anaphylaxis ceftriaxone [From Rocephin] Allergy (Mild, Verified 07/04/23 20:03) Itching eszopiclone [From Lunesta] Allergy (Verified 07/03/19 07:05) headache meloxicam [From Mobic] Allergy (Verified 07/03/19 07:05) Unknown rofecoxib [From Vioxx] Allergy (Verified 07/03/19 07:05) Unknown zolpidem [From Ambien] Allergy (Verified 07/03/19 07:05) sleeps too long azithromycin [From Zithromax Z-Dioni] Adverse Reaction (Mild, Verified 07/03/19 07:05) sob/heart racing vomiting cephalexin monohydrate [From Keflex] Adverse Reaction (Mild, Verified 07/03/19 07:05) swelling Penicillins Adverse Reaction (Mild, Verified 07/03/19 07:05) swelling Sulfa (Sulfonamide Antibiotics) [Sulfa(Sulfonamide Antibiotics)] Adverse Reaction (Mild, Verified 07/03/19 07:05) Rash OXY MEDS Allergy (Uncoded 07/03/19 07:05) Unknown steroids Adverse Reaction (Mild, Uncoded 07/03/19 07:05) swelling Home Medications: Gabapentin 600 mg PO BID 04/23/19 Levothyroxine [Synthroid*] 125 mcg PO [id number] 04/23/19 Ascorbic Acid [Vitamin C] 1,000 mg PO DAILY 07/03/19 Diphenhydramine [Benadryl Tab/Cap] 25 mg PO BEDTIME 07/03/19 L.acidoph,Paracasei, B.lactis [Probiotic] 1 each PO DAILY 07/03/19 Melatonin 30 mg PO BEDTIME 07/03/19 - Past Medical/Surgical History Has patient received pneumonia vaccine in the past: No Diabetic: No -: HTN -: Hypothyroid -: chronic pain -: slipped disc -: Gi Bleed -: Liver Failure -: gallbladder -: , hysterectomy -: appendix -: pain pump R implant - Family History Brother -: Liver disease - Social History Smoking Status: Never smoker Alcohol use: No CD- Drugs: No Caffeine use: Yes Place of Residence: Home Physical Examination - Vital Signs Blood Pressure: 135/68 Pulse: 58 Respirations: 17 Pulse Ox (%): 99 - Physical Exam General: Alert, Oriented x3 HEENT: Atraumatic Neck: Supple Respiratory: Normal air movement Cardiovascular: Regular rate/rhythm, Normal S1 S2 Gastrointestinal: Soft and benign Musculoskeletal: No swelling Neurological: Normal speech, Normal strength at 5/5 x4 extr - Studies Laboratory Data (last 24 hrs) 07/04/23 07/04/23 15:40 15:40 WBC 5.80 Hgb 13.2 Hct 38.2 Plt Count 144 L Sodium 137 Potassium 4.6 BUN 17 Creatinine 1.34 H Glucose 117 H Total Bilirubin 0.7 AST 10 L ALT 21 Alkaline Phosphatase 101 Microbiology Data (last 24 hrs): 07/04/23 15:32 Nasopharnyx Influenza Type A Antigen Screen - Final 07/04/23 15:32 Nasopharnyx Influenza Type B Antigen Screen - Final Assessment and Plan - Plan COVID-19 disease: Patient has significant findings of COVID-19 disease positive state. Will continue as needed vitamin C, Tylenol, supplementation with multivitamin. Will continue breathing treatment as needed. Paxlovid dose to be completed. Monitor symptomatology closely. steroid dose to be continued. Hypertension: We will monitor vital signs per unit protocol and continue antihypertensive medications. Hyperlipidemia: Continue statin therapy. Hypothyroidism: Continue analysis. Acute kidney injury: Creatinine slightly elevated at 1.3. Will hydrate isotonic fluid and monitor symptomatology/labs. Prophylaxis: Lovenox for DVT prophylaxis. CODE STATUS: Full code. Disposition: We will treat her COVID-19 disease, continue supportive care and discharge home once deemed clinically stable. - Advance Directives Does patient have a Living Will: No Does patient have a Durable POA for Healthcare: No
[2023-07-05 07:40] LABS: Absolute Lymphocytes (CBC) 1.5 K/uL (0.7-4.9); Hematocrit 36.9 % (36.0-45.0); Lymphocytes % 37.8 % (15.3-44.8); MCV 95.2 fL (80-100); MPV 9.7 fL (7.6-11.3); Platelets 113 thou/uL (152-406); RBC Red Blood Cell Count 3.88 M/uL (3.86-4.86)
[2023-07-05 07:52] LABS: Potassium 3.9 mEq/L (3.5-5.1)
[2023-07-05] MEDS: PNEUMOCOCCAL VACCINE 0.5 ML IMVAC ONE (08:00)
[2023-07-05] MEDS: INFLUENZA VACCINE (for 6+ mo) 0.5 ML DOSE IMVAC ONE (08:00)
[2023-07-05] MEDS ORDERED: ENOXAPARIN 40 MG/0.4 ML SQ ONE (08:21)
[2023-07-05] MEDS ORDERED: dexAMETHasone 10 MG/ML VIAL ONE (08:21)
[2023-07-05] MEDS ORDERED: NA CHLORIDE 0.9% 1,000 ML ONE (08:21)
[2023-07-05] MEDS: ENOXAPARIN 40 MG/0.4 ML SQ SCH (08:49)
[2023-07-05] MEDS: dexAMETHasone 10 MG/ML VIAL IV SCH (08:49)
[2023-07-05] MEDS: NIRMATRELVIR/RITONAVIR TABLET PO SCH (08:49)
[2023-07-05] MEDS: ASCORBIC ACID 500 MG TABLET PO SCH (09:00)
[2023-07-05] MEDS ORDERED: NIRMATRELVIR/RITONAVIR TABLET PO SCH (09:00)
[2023-07-05] MEDS ORDERED: ONDANSETRON 4 MG/2 ML VIAL ONE (10:12)
[2023-07-05] MEDS ORDERED: ASCORBIC ACID 500 MG TABLET ONE (10:13)
[2023-07-05] MEDS: ONDANSETRON 4 MG (ODT) TAB PO PRN (10:20)
--- NOTE | 2023-07-05 16:24 | P.DS ---
Admission Date: 07/04/23 Discharge Date: 07/05/23 Disposition: ROUTINE DISCHARGE Discharge Condition: FAIR Reason for Admission: COVID-19 disease. - Problems (1) COVID-19 virus infection Current Visit: Yes Status: Acute (2) Chronic interstitial lung disease Current Visit: Yes Status: Acute (3) COPD (chronic obstructive pulmonary disease) Current Visit: No Status: Acute Brief History of Present Illness: 63-year-old female patient with medical history significant for hypertension, hypothyroidism was evaluated for episode of near syncopal episode and dizzy spells with weakness. She tested positive for COVID-19 disease using a home test a couple of days ago and reported poor oral intake. She began taking Paxlovid. She reports a history of chronic interstitial lung disease of unknown etiology after extensive workup in [place] she continues. She reported worsening shortness of breath, lethargy, malaise and so she came to the ED for evaluation. Notable findings in the ED mild acute kidney injury and volume depletion. Patient noted to be briefly hypotensive in the ED. Blood pressure responded well to IV hydration. She was also given breathing treatment and hospitalized for further management. Hospital Course: Patient placed under observation on the medical floor, given breathing treatment and continued Paxlovid. She was asymptomatic, not hypoxic on room air and reported feeling at baseline. Her blood pressure has been stable since admission and has been tolerating diet. Patient request to go home. She is discharged to continue Paxlovid. Vital Signs/Physical Exam: Temp Pulse Resp BP Pulse Ox 98.9 F 60 17 145/56 H 97 07/05/23 08:00 07/05/23 08:00 07/05/23 08:00 07/05/23 08:00 07/05/23 08:00 General: Alert, In no apparent distress, Oriented x3 HEENT: Mucous membr. moist/pink Neck: Supple, JVD not distended Respiratory: Crackles/rales Cardiovascular: No edema, Regular rate/rhythm, Normal S1 S2 Gastrointestinal: Normal bowel sounds, Soft and benign, Non-distended Musculoskeletal: No swelling Integumentary: No rashes, No cyanosis Neurological: Normal strength at 5/5 x4 extr, Cranial nerves 3-12 intact Laboratory Data at Discharge: WBC 4.10 thou/uL (4.3-10.9) L 07/05/23 07:30 Hgb 12.5 g/dL (12.0-15.0) 07/05/23 07:30 Hct 36.9 % (36.0-45.0) 07/05/23 07:30 Plt Count 113 thou/uL (152-406) L 07/05/23 07:30 Sodium 139 mEq/L (136-145) 07/05/23 07:30 Potassium 3.9 mEq/L (3.5-5.1) D 07/05/23 07:30 BUN 11 mg/dL (7-18) 07/05/23 07:30 Creatinine 0.84 mg/dL (0.55-1.02) 07/05/23 07:30 Glucose 108 mg/dL (74-106) H 07/05/23 07:30 Total Bilirubin 0.7 mg/dL (0.2-1.0) 07/04/23 15:40 AST 10 U/L (15-37) L 07/04/23 15:40 ALT 21 U/L (13-56) 07/04/23 15:40 Alkaline Phosphatase 101 U/L (45-117) 07/04/23 15:40 Home Medications: Gabapentin 600 mg PO TID 04/23/19 Levothyroxine [Synthroid*] 125 mcg PO [id number] 04/23/19 Ascorbic Acid [Vitamin C] 1,000 mg PO DAILY 07/03/19 Diphenhydramine [Benadryl*] 25 mg PO BEDTIME 07/03/19 L.acidoph,Paracasei, B.lactis [Probiotic] 1 each PO DAILY 07/03/19 Melatonin 30 mg PO BEDTIME 07/03/19 Amitriptyline [Elavil*] 50 mg PO DAILY 07/05/23 Carvedilol Phosphate [Carvedilol ER] 80 mg PO DAILY 07/05/23 Cetirizine HCl [Zyrtec] 10 mg PO DAILY 07/05/23 Famotidine [Pepcid*] 20 mg PO BID 07/05/23 Furosemide 20 mg PO DAILY 07/05/23 Linaclotide [Linzess] 290 mg PO DAILY 07/05/23 Montelukast [Singulair*] 10 mg PO BEDTIME 07/05/23 Nirmatrelvir/Ritonavir [Paxlovid 150-100 mg Dose Pack] 150 mg PO BID 07/05/23 Omeprazole 20 mg PO DAILY 07/05/23 Ramipril [Altace] 10 mg PO BEDTIME 07/05/23 Diet: AHA Activity: Ad esther Followup: Effie Azevedo DO [Primary Care Provider] - Time spent managing pt's care (in minutes): 28
--- NOTE | 2023-07-05 16:41 | EKG ---
Test Date: 2023-07-04 Test Time: 16:30:27 Set Up [employer] Machine: PAUL MEASUREMENT RESULTS: Intervals: Rate: 47 FL: 160 QRSD: 80 QT: 478 QTc: 423 [place]: P: 154 FL: 160 QRS: 150 T: 162 INTERPRETIVE STATEMENTS: Suspect arm lead reversal, interpretation assumes no reversal Unusual P axis, possible ectopic atrial bradycardia Right ventricular hypertrophy with repolarization abnormality T wave abnormality, consider inferior ischemia Abnormal ECG Compared to ECG 01/31/2023 12:03:08 Right ventricular hypertrophy now present Early repolarization now present T-wave abnormality now present Possible ischemia now present Sinus bradycardia no longer present ST (T wave) deviation no longer present Electronically Signed On 07-05-23 16:40:53 CONTINUITY TESTER by Jonathan Kinney
[2023-07-06 21:36] VITALS: BP 116/61; TEMP 97.6; O2SAT 98
== END 2023-07-05 20:05 | disposition home or self-care (01) ==
LOC: ER 14:44 → ERHOLD 21:00 → INTOOBSV 21:00 → 4TH 07-05 11:13
PROVIDERS: ADMIT Internal Medicine Nephrology; ATTEND Internal Medicine
DX: U07.1 COVID-19 (principal); J84.9 Interstitial pulmonary disease, unspecified; J44.9 Chronic obstructive pulmonary disease, unspecified; N17.9 Acute kidney failure, unspecified; E86.9 Volume depletion, unspecified; I10 Essential (primary) hypertension; E03.9 Hypothyroidism, unspecified; R55 Syncope and collapse; R53.1 Weakness; R42 Dizziness and giddiness; R06.02 Shortness of breath; E78.5 Hyperlipidemia, unspecified; Z88.0 Allergy status to penicillin; Z88.2 Allergy status to sulfonamides; Z91.030 Bee allergy status; Z88.3 Allergy status to other anti-infective agents; Z88.8 Allergy status to other drugs, medicaments and biological substances
CPT/HCPCS: 93005; 85025 ×2; 80048; 36415; 80053; 87635; 87804 ×2; 71275; 71045; Q9967; J7614; J1100; J2405; J8499; J7030 ×2; G0378; J1650

== ENCOUNTER 2023-07-26 18:45 | Observation (INO) | payer OTHER ==
[2023-07-26] MEDS ORDERED: dilTIAZem HCL 25 MG/5 ML VIAL IV ONE (19:21)
[2023-07-26] MEDS ORDERED: NA CHLORIDE 0.9% 1,000 ML ONE (19:21)
[2023-07-26 19:37] LABS: Absolute Lymphocytes (CBC) 2.3 K/uL (0.7-4.9); Hematocrit 39.9 % (36.0-45.0); Lymphocytes % 38.4 % (15.3-44.8); MCV 96.1 fL (80-100); MPV 9.7 fL (7.6-11.3); Platelets 148 thou/uL (152-406); RBC Red Blood Cell Count 4.15 M/uL (3.86-4.86)
--- NOTE | 2023-07-26 19:56 | RAD REPORT ---
EXAM DESCRIPTION: RAD - Chest Single View - 07/26/2023 7:51 pm CLINICAL HISTORY: new afib Chest pain. COMPARISON: Chest Single View dated 07/04/2023; Chest Single View dated 01/31/2023; Chest Single View da norma 06/21/2022; Chest Single View dated 05/27/2022 FINDINGS: Portable technique limits examination quality. Mild interstitial pulmonary edema. The heart is mildly enlarged in size. No displaced fractures. IMPRESSION: Mild CHF.
[2023-07-26] MEDS ORDERED: ENOXAPARIN 80 MG/0.8 ML SQ ONE (20:02)
[2023-07-26 20:14] LABS: Albumin 3.2 g/dL (3.4-5.0); Bilirubin Direct 0.2 mg/dL (0-0.2); Bilirubin Indirect, Calculated 0.4 mg/dL (0.2-0.8); Bilirubin Total 0.6 mg/dL (0.2-1.0); Troponin High Sensitivity 33.7 pg/mL (<58.9)
[2023-07-26] MEDS ORDERED: ACETAMINOPHEN 325 MG TABLET PO PRN (22:16)
[2023-07-26] MEDS ORDERED: ONDANSETRON 4 MG/2 ML VIAL IV PRN (22:16)
--- NOTE | 2023-07-26 22:18 | ER ---
Nurse's Notes [facility] Name: Kaitlyn Sesay Age: 63 yrs Sex: Female : 1960 Arrival Date: 07/26/2023 Time: 18:45 Bed 3 Private MD: Diagnosis: Unspecified atrial flutter;Acute diastolic (congestive) heart failure Presentation: 07/26 18:53 Chief complaint: Patient states: Chest palpitations and feel like I have indigestion vc1 real bad and my chest hurts. Risk Assessment: Do you want to hurt yourself or someone else? Patient reports no desire to harm self or others. Onset of symptoms was July 26, 2023 at 14:00. 18:53 Acuity: VIKRAM 3 vc1 18:53 Method Of Arrival: Ambulatory vc1 19:11 Coronavirus screen: Vaccine status: Patient reports receiving the 2nd dose of the covid vc1 vaccine. Client denies travel out of the [place] in the last 14 days. At this time, the client does not indicate any symptoms associated with coronavirus-19. Ebola Screen: Patient negative for fever greater than or equal to 101.5 degrees Fahrenheit, and additional compatible Ebola Virus Disease symptoms Patient denies exposure to infectious person. Patient denies travel to an Ebola-affected area in the 21 days before illness onset. No symptoms or risks identified at this time. Initial Sepsis Screen: Does the patient meet any 2 criteria? HR > 90 bpm. No. Patient's initial sepsis screen is negative. Does the patient have a suspected source of infection? No. Patient's initial sepsis screen is negative. Triage Assessment: 19:12 General: Appears in no apparent distress. uncomfortable, Behavior is calm, cooperative, vc1 appropriate for age. Pain: Complains of pain in chest Pain does not radiate. Pain currently is 3 out of 10 on a pain scale. Quality of pain is described as burning, Pain began around 2 pm Is continuous, Also complains of shortness of breath. EENT: No deficits noted. No signs and/or symptoms were reported regarding the EENT system. Neuro: Level of Consciousness is awake, alert, obeys commands. Cardiovascular: Reports chest pain, palpitations, shortness of breath, Heart tones S1 S2 Chest pain is described as mild, quality is indigestion. Respiratory: Reports shortness of breath Airway is patent Respiratory effort is even, unlabored, Respiratory pattern is regular, symmetrical. GI: No deficits noted. No signs and/or symptoms were reported involving the gastrointestinal system. : No deficits noted. No signs and/or symptoms were reported regarding the genitourinary system. Derm: No deficits noted. No signs and/or symptoms reported regarding the dermatologic system. Musculoskeletal: No deficits noted. No signs and/or symptoms reported regarding the musculoskeletal system. Historical: - Allergies: 19:11 Azithromycin; vc1 19:11 Cephalexin; vc1 19:11 PENICILLINS; vc1 19:11 Rocephin; vc1 19:11 Rofecoxib; vc1 19:11 Sulfa (Sulfonamide Antibiotics); vc1 - PMHx: 19:11 Chronic pain; Thyroid problem; liver failure; Hypertensive disorder; vc1 Hypercholesterolemia; GI Bleed; - Immunization history:: Client reports receiving the 2nd dose of the Covid vaccine, Flu vaccine is up to date. - Social history:: Smoking status: Patient reports the use of cigarette tobacco products, smokes one-half pack cigarettes per day. Screenin:12 [facility] ED Fall Risk Assessment (Adult) History of falling in the last 3 months, vc1 including since admission No falls in past 3 months (0 pts) Confusion or Disorientation No (0 pts) Intoxicated or Sedated No (0 pts) Impaired Gait No (0 pts) Mobility Assist Device Used No (0 pt) Altered Elimination No (0 pt) Score/Fall Risk Level 0 - 2 = Low Risk Oriented to surroundings, Maintained a safe environment, Educated pt \T\ family on fall prevention, incl call for assistance when getting out of bed. Abuse screen: Denies threats or abuse. Nutritional screening: No deficits noted. Tuberculosis screening: No symptoms or risk factors identified. Assessment: 19:15 Cardiovascular: Reports palpitations, Capillary refill < 3 seconds Patient's skin is tm6 warm and dry. Rhythm is atrial fibrillation with rapid ventricular response. Respiratory: Airway is patent Respiratory effort is even, unlabored, Respiratory pattern is regular, symmetrical. GI: Abdomen is flat, non-distended. GI: No signs and/or symptoms were reported involving the gastrointestinal system. : No signs and/or symptoms were reported regarding the genitourinary system. EENT: No signs and/or symptoms were reported regarding the EENT system. Derm: No signs and/or symptoms reported regarding the dermatologic system. Musculoskeletal: No signs and/or symptoms reported regarding the musculoskeletal system. 19:42 General: Appears in no apparent distress. Behavior is calm, cooperative. Pain: Denies tm6 pain. Neuro: Level of Consciousness is awake, alert, obeys commands, Oriented to person, place, time, situation. 19:43 Cardiovascular: Rhythm is sinus bradycardia. tm6 21:43 Reassessment: Patient appears in no apparent distress at this time. No changes from tm6 previously documented assessment. Patient and/or family updated on plan of care and expected duration. Pain level reassessed. Patient is alert, oriented x 3, equal unlabored respirations, skin warm/dry/pink. Vital Signs: 18:53 BP 103 / 89; Pulse 65; Resp 14; Temp 97.2; Pulse Ox 99% ; Weight 79.83 kg; Height 5 ft. vc1 6 in. ; Pain 5/10; 19:15 BP 114 / 87; Pulse 143; Resp 20; Pulse Ox 98% ; Pain 0/10; tm6 19:30 BP 126 / 75; Pulse 123; Resp 28; Pulse Ox 98% on R/A; Pain 0/10; tm6 19:42 BP 126 / 75; Pulse 53; Pulse Ox 96% ; Pain 0/10; tm6 20:55 BP 117 / 70; Pulse 59; Resp 20; Pulse Ox 99% on R/A; Pain 0/10; tm6 21:42 BP 123 / 68; Pulse 52; Resp 16; Pulse Ox 97% on R/A; Pain 0/10; tm6 22:50 BP 154 / 77; Pulse 54; Resp 16; Pulse Ox 100% ; bp 23:33 BP 131 / 76; Pulse 56; Resp 15; Pulse Ox 99% ; bp 18:53 Body Mass Index 28.41 (79.83 kg, 167.64 cm) vc1 18:53 Pain Scale: Adult vc1 19:15 Pain Scale: Adult tm6 19:30 Pain Scale: Adult tm6 19:42 Pain Scale: Adult tm6 20:55 Pain Scale: Adult tm6 21:42 Pain Scale: Adult tm6 [place] Coma Score: 22:22 Eye Response: spontaneous(4). Motor Response: obeys commands(6). Verbal Response: sp4 oriented(5). Total: 15. ED Course: 18:49 Patient arrived in ED. ae5 18:55 Shahid San MD is Attending Physician. sp3 18:56 Triage completed. vc1 19:12 Arm band placed on right wrist. vc1 19:18 CBC with Diff Sent. as9 19:18 Basic Metabolic Panel Sent. as9 19:18 LFT's Sent. as9 19:18 Magnesium Sent. as9 19:18 NT PRO-BNP Sent. as9 19:18 PT-INR Sent. as9 19:19 Troponin HS Sent. as9 19:37 Beau Zambrano, RN is Primary Nurse. bp 19:53 XRAY Chest (1 view) In Process Unspecified. EDMS 22:15 Attending Physician role handed off by Shahid San MD sp4 22:15 Jmi Jorgensen MD is Attending Physician. sp4 22:16 Nicolas Beckett is Hospitalizing Provider. sp4 23:32 Patient has correct armband on for positive identification. bp 23:32 No provider procedures requiring assistance completed. Patient admitted, IV remains in bp place. Administered Medications: 19:26 Drug: Diltiazem IVP 10 mg IVP once; Over 2 minutes Route: IVP; Site: left forearm; tm6 20:07 Follow up: Response: No adverse reaction bp 20:06 Drug: Enoxaparin Sub-Q 80 mg Sub-Q once Route: Sub-Q; Site: left lower abdomen; bp 20:07 Follow up: Response: No adverse reaction bp Outcome: 22:17 Decision to Hospitalize by Provider. sp4 23:32 Admitted to ICU accompanied by nurse, via wheelchair, room 3, with chart, Report called bp to OSITO FIERRO 23:32 Condition: stable 23:32 Instructed on the need for admit, 23:33 Patient left the ED. bp Signatures: Dispatcher [employer] EDMS Beau Zambrano, RN RN bp Shahid San MD MD sp3 Hayley Atkins RN RN vc1 Jim Jorgensen MD MD sp4 Brock Jefferson RN RN tm6 Lizbeth Singer ae5 Dakota Farias, RN RN as9
--- NOTE | 2023-07-26 22:18 | EDPHYS ---
Physician Documentation [facility] Name: Kaitlyn Sesay Age: 63 yrs Sex: Female : 1960 Arrival Date: 07/26/2023 Time: 18:45 Bed 3 Private MD: ED Physician Jim Jorgensen HPI: 07/26 19:45 This 63 yrs old Female presents to ER via Ambulatory with complaints of Blood Pressure sp3 Problem. 19:45 63-year-old female with a history of hypertension, hyperlipidemia, prior liver sp3 abnormalities, chronic pain presents to the ED with chest pain that started off and on for the last several days and significantly worsened today coupled with palpitations and shortness of breath. She denies any other symptoms including headache, fever, URI symptoms, trauma, abdominal pain, nausea, vomiting, diarrhea, rash, prolonged immobilization, known sick contacts, travel history, or any other signs or symptoms on ROS at this time.. Historical: - Allergies: 19:11 Azithromycin; vc1 19:11 Cephalexin; vc1 19:11 PENICILLINS; vc1 19:11 Rocephin; vc1 19:11 Rofecoxib; vc1 19:11 Sulfa (Sulfonamide Antibiotics); vc1 - PMHx: 19:11 Chronic pain; Thyroid problem; liver failure; Hypertensive disorder; vc1 Hypercholesterolemia; GI Bleed; - Immunization history:: Client reports receiving the 2nd dose of the Covid vaccine, Flu vaccine is up to date. - Social history:: Smoking status: Patient reports the use of cigarette tobacco products, smokes one-half pack cigarettes per day. ROS: 19:46 Constitutional: Negative for fever, chills, and weight loss, Eyes: Negative for injury, sp3 pain, redness, and discharge, ENT: Negative for injury, pain, and discharge, Neck: Negative for injury, pain, and swelling, Respiratory: Negative for shortness of breath, cough, wheezing, and pleuritic chest pain, Abdomen/GI: Negative for abdominal pain, nausea, vomiting, diarrhea, and constipation, Back: Negative for injury and pain, MS/Extremity: Negative for injury and deformity, Skin: Negative for injury, rash, and discoloration, Neuro: Negative for headache, weakness, numbness, tingling, and seizure, Psych: Negative for depression, anxiety, suicide ideation, homicidal ideation, and hallucinations, Allergy/Immunology: Negative for hives, rash, and allergies, Endocrine: Negative for neck swelling, polydipsia, polyuria, polyphagia, and marked weight changes, 19:46 All other systems are negative, Exam: 19:46 Constitutional: This is a well developed, well nourished patient who is awake, alert, sp3 and in no acute distress. Head/Face: Normocephalic, atraumatic. Eyes: Pupils equal round and reactive to light, extra-ocular motions intact. Lids and lashes normal. Conjunctiva and sclera are non-icteric and not injected. Cornea within normal limits. Periorbital areas with no swelling, redness, or edema. Neck: Trachea midline, no thyromegaly or masses palpated, and no cervical lymphadenopathy. Supple, full range of motion without nuchal rigidity, or vertebral point tenderness. No Meningismus. Chest/axilla: Normal chest wall appearance and motion. Nontender with no deformity. No lesions are appreciated. Respiratory: Lungs have equal breath sounds bilaterally, clear to auscultation and percussion. No rales, rhonchi or wheezes noted. No increased work of breathing, no retractions or nasal flaring. Abdomen/GI: Soft, non-tender, with normal bowel sounds. No distension or tympany. No guarding or rebound. No evidence of tenderness throughout. Back: No spinal tenderness. No costovertebral tenderness. Full range of motion. Skin: Warm, dry with normal turgor. Normal color with no rashes, no lesions, and no evidence of cellulitis. MS/ Extremity: Pulses equal, no cyanosis. Neurovascular intact. Full, normal range of motion. Neuro: Awake and alert, GCS 15, oriented to person, place, time, and situation. Cranial nerves II-XII grossly intact. Motor strength 5/5 in all extremities. Sensory grossly intact. Cerebellar exam normal. Normal gait. Psych: Awake, alert, with orientation to person, place and time. Behavior, mood, and affect are within normal limits. 19:46 Cardiovascular: Irregularly irregular heartbeat consistent with atrial fibrillation in the 140s with episodic hypotension., 19:46 ECG was reviewed by the Attending Physician. Initial EKG demonstrates atrial flutter pattern with ventricular capture at 145 bpm with normal QTc, normal axis, normal QRS and nonspecific diffuse ST/T changes without evidence of acute ischemia. Vital Signs: 18:53 BP 103 / 89; Pulse 65; Resp 14; Temp 97.2; Pulse Ox 99% ; Weight 79.83 kg; Height 5 ft. vc1 6 in. ; Pain 5/10; 19:15 BP 114 / 87; Pulse 143; Resp 20; Pulse Ox 98% ; Pain 0/10; tm6 19:30 BP 126 / 75; Pulse 123; Resp 28; Pulse Ox 98% on R/A; Pain 0/10; tm6 19:42 BP 126 / 75; Pulse 53; Pulse Ox 96% ; Pain 0/10; tm6 20:55 BP 117 / 70; Pulse 59; Resp 20; Pulse Ox 99% on R/A; Pain 0/10; tm6 21:42 BP 123 / 68; Pulse 52; Resp 16; Pulse Ox 97% on R/A; Pain 0/10; tm6 22:50 BP 154 / 77; Pulse 54; Resp 16; Pulse Ox 100% ; bp 23:33 BP 131 / 76; Pulse 56; Resp 15; Pulse Ox 99% ; bp 18:53 Body Mass Index 28.41 (79.83 kg, 167.64 cm) vc1 18:53 Pain Scale: Adult vc1 19:15 Pain Scale: Adult tm6 19:30 Pain Scale: Adult tm6 19:42 Pain Scale: Adult tm6 20:55 Pain Scale: Adult tm6 21:42 Pain Scale: Adult tm6 [place] Coma Score: 22:22 Eye Response: spontaneous(4). Motor Response: obeys commands(6). Verbal Response: sp4 oriented(5). Total: 15. MDM: 18:55 Patient medically screened. sp3 19:47 Data reviewed: vital signs, nurses notes, lab test result(s), EKG, radiologic studies. sp3 ED course: 63-year-old female with chest pain and atrial flutter/fibrillation with RVR. Patient was given Cardizem 10 mg IV which has broken her fibrillation into return sinus rhythm. Repeat EKG is pending however monitor demonstrates sinus rhythm at 60 bpm. CBC is normal but remainder of labs are pending. Will give Lovenox 1 dose and aspirin as well as place patient observation with cardiology consultation for ischemic rule out.. 22:22 Differential diagnosis: acute myocardial infarction, acute pericarditis, anxiety, sp4 coronary artery disease chest wall pain, congestive heart failure. HEART Score: History: Moderately Suspicious (1), ECG: Non specific repolarization disturbance / LBTB / PM (1), Age: > or = 65 years (2), Risk Factors: > or = 3 Risk factors for atherosclerotic disease (2), Troponin: < or = 1 x Normal Limit (0), Total Score = 6. Consideration of Admission/Observation Patient was admitted/placed on observation. Escalation of care including admission/observation considered. Management of patient was discussed with the following: Hospitalist: Sujit Harry 07/26 19:08 Order name: Basic Metabolic Panel; Complete Time: 22:15 sp3 07/26 19:08 Order name: CBC with Diff; Complete Time: 19:45 sp3 07/26 19:08 Order name: LFT's; Complete Time: 22:15 sp3 07/26 19:08 Order name: Magnesium; Complete Time: 22:15 sp3 07/26 19:08 Order name: NT PRO-BNP; Complete Time: 22:15 sp3 07/26 19:08 Order name: PT-INR; Complete Time: 19:59 sp3 07/26 19:08 Order name: Troponin HS; Complete Time: 22:15 sp3 07/26 19:48 Order name: ASA; Complete Time: 22:15 sp3 07/26 22:23 Order name: Basic Metabolic Panel EDMS 07/26 22:23 Order name: Basic Metabolic Panel EDMS 07/26 22:23 Order name: CBC with Automated Diff EDMS 07/26 22:23 Order name: CBC with Automated Diff EDMS 07/26 22:23 Order name: Lipid Profile EDMS 07/26 22:23 Order name: Lipid Profile EDMS 07/26 22:23 Order name: Magnesium EDMS 07/26 22:23 Order name: Magnesium EDMS 07/26 22:23 Order name: Phosphorus EDMS 07/26 22:23 Order name: Phosphorus EDMS 07/26 22:23 Order name: Thyroid Stimulating Hormone EDMS 07/26 22:23 Order name: Thyroid Stimulating Hormone EDMS 07/26 22:23 Order name: Troponin High Sensitivity EDMS 07/26 22:23 Order name: Troponin High Sensitivity EDMS 07/26 22:23 Order name: Troponin High Sensitivity EDMS 07/26 19:08 Order name: XRAY Chest (1 view); Complete Time: 19:59 3 07/26 22:23 Order name: Echo with Doppler [facility] 07/26 19:08 Order name: EKG; Complete Time: 19:09 3 07/26 19:08 Order name: Cardiac monitoring; Complete Time: 19:23 sp3 07/26 19:08 Order name: EKG - Nurse/Tech; Complete Time: 19:13 3 07/26 19:08 Order name: IV Saline Lock; Complete Time: 19:13 sp3 07/26 19:08 Order name: Labs collected and sent; Complete Time: 19:26 3 07/26 19:08 Order name: O2 Per Protocol; Complete Time: 19:23 3 07/26 19:08 Order name: O2 Sat Monitoring; Complete Time: 19:23 sp3 Administered Medications: 19:26 Drug: Diltiazem IVP 10 mg IVP once; Over 2 minutes Route: IVP; Site: left forearm; tm6 20:07 Follow up: Response: No adverse reaction bp 20:06 Drug: Enoxaparin Sub-Q 80 mg Sub-Q once Route: Sub-Q; Site: left lower abdomen; bp 20:07 Follow up: Response: No adverse reaction bp Disposition Summary: 07/26/23 22:17 Hospitalization Ordered Notes: Hospitalization Status: Inpatient Admission sp4 Provider: Nicolas Beckett spAdolfo Condition: Stable sp4 Problem: new sp4 Symptoms: have improved sp4 Bed/Room Type: Standard sp4 Location: Intensive Care Unit(07/26/23 22:41) rv1 Room Assignment: 3-(07/26/23 22:41) rv1 Diagnosis - Unspecified atrial flutter sp4 - Acute diastolic (congestive) heart failure sp4 Forms: - Medication Reconciliation Form sp4 - SBAR form sp4 - Leadership Thank You Letter sp4 Signatures: Dispatcher [employer] Beau Garcia, SRI RN Shahid Reynolds MD MD sp3 Hayley Atkins RN RN vc1 Shaniqua Kelley rv1 Jim Jorgensen MD MD sp4 Brock Jefferson RN RN tm6 Corrections: (The following items were deleted from the chart) 22:41 22:17 Telemetry/MedSurg ([facility]) sp4 rv1 :41 22:17 sp4 rv1
--- NOTE | 2023-07-26 22:28 | P.HP ---
Certification for Inpatient Patient admitted to: Inpatient With expected LOS: >2 Midnights Practitioner: I am a practitioner with admitting privileges, knowledge of patient current condition, hospital course, and medical plan of care. Services: Services provided to patient in accordance with Admission requirements found in Title 42 Section 412.3 of the Code of Federal Regulations Patient History Date of Service: 07/26/23 Reason for admission: Palpitation History of Present Illness: 63-year-old woman with a history of hypertension hypothyroidism presented to the emergency department with a complaint of intermittent palpitations. Symptoms associated with shortness of breath, chest pain and lightheadedness. Patient reports high blood pressure readings with systolic up to 150 today. She therefore presented to the emergency department for evaluation. EKG done in the emergency department demonstrated atrial flutter with a viable block. Chest x- ray demonstrated mild CHF, initial troponin negative. Patient converted to sinus bradycardia after a dose of IV Cardizem given in the ED. Patient was asymptomatic and still in sinus bradycardia during my examination in the ED. She is hospitalized for further evaluation and management. Allergies venom-honey bee [bee venom (honey bee)] Allergy (Intermediate, Verified 07/03/19 07:05) Anaphylaxis ceftriaxone [From Rocephin] Allergy (Mild, Verified 07/04/23 20:03) Itching eszopiclone [From Lunesta] Allergy (Verified 07/03/19 07:05) headache meloxicam [From Mobic] Allergy (Verified 07/03/19 07:05) Unknown rofecoxib [From Vioxx] Allergy (Verified 07/03/19 07:05) Unknown zolpidem [From Ambien] Allergy (Verified 07/03/19 07:05) sleeps too long azithromycin [From Zithromax Z-Dioni] Adverse Reaction (Mild, Verified 07/03/19 07:05) sob/heart racing vomiting cephalexin monohydrate [From Keflex] Adverse Reaction (Mild, Verified 07/03/19 07:05) swelling Penicillins Adverse Reaction (Mild, Verified 07/03/19 07:05) swelling Sulfa (Sulfonamide Antibiotics) [Sulfa(Sulfonamide Antibiotics)] Adverse Reaction (Mild, Verified 07/03/19 07:05) Rash OXY MEDS Allergy (Uncoded 07/03/19 07:05) Unknown steroids Adverse Reaction (Mild, Uncoded 07/03/19 07:05) swelling Home Medications: Gabapentin 600 mg PO TID 04/23/19 Levothyroxine [Synthroid*] 125 mcg PO [id number] 04/23/19 Ascorbic Acid [Vitamin C] 1,000 mg PO DAILY 07/03/19 Diphenhydramine [Benadryl*] 25 mg PO BEDTIME 07/03/19 L.acidoph,Paracasei, B.lactis [Probiotic] 1 each PO DAILY 07/03/19 Melatonin 30 mg PO BEDTIME 07/03/19 Amitriptyline [Elavil*] 50 mg PO DAILY 07/05/23 Carvedilol Phosphate [Carvedilol ER] 80 mg PO DAILY 07/05/23 Cetirizine HCl [Zyrtec] 10 mg PO DAILY 07/05/23 Famotidine [Pepcid*] 20 mg PO BID 07/05/23 Furosemide 20 mg PO DAILY 07/05/23 Linaclotide [Linzess] 290 mg PO DAILY 07/05/23 Montelukast [Singulair*] 10 mg PO BEDTIME 07/05/23 Nirmatrelvir/Ritonavir [Paxlovid 150-100 mg Dose Pack] 150 mg PO BID 07/05/23 Omeprazole 20 mg PO DAILY 07/05/23 Ramipril [Altace] 10 mg PO BEDTIME 07/05/23 - Past Medical/Surgical History Diabetic: No -: HTN -: Hypothyroid -: chronic pain -: slipped disc -: Gi Bleed -: Liver Failure -: gallbladder -: , hysterectomy -: appendix -: pain pump R implant - Family History Brother -: Liver disease - Social History Alcohol use: No CD- Drugs: No Caffeine use: Yes Review of Systems Other: Patient denied any cough, abdominal pain, nausea vomiting or diarrhea. Except as documented, all other systems reviewed and negative. Physical Examination - Physical Exam General: Alert, In no apparent distress, Oriented x3 HEENT: Mucous membr. moist/pink Neck: Supple, JVD not distended Respiratory: Clear to auscultation bilaterally, Normal air movement Cardiovascular: No edema, Normal S1 S2, Other (Bradycardia, normal rhythm) Capillary refill: <2 Seconds Gastrointestinal: Normal bowel sounds, Soft and benign, Non-distended, No tenderness Musculoskeletal: No swelling, No tenderness Integumentary: No rashes, No cyanosis Neurological: Normal speech, Normal strength at 5/5 x4 extr, Cranial nerves 3-12 intact Lymphatics: No axilla or inguinal lymphadenopathy - Studies Laboratory Data (last 24 hrs) 07/26/23 07/26/23 07/26/23 19:15 19:15 19:15 WBC 5.90 Hgb 13.6 Hct 39.9 Plt Count 148 L PT 11.9 INR 1.00 Sodium 141 Potassium 4.0 BUN 12 Creatinine 1.02 Glucose 150 H Magnesium 2.0 Total Bilirubin 0.6 AST 17 ALT 23 Alkaline Phosphatase 112 Assessment and Plan - Problems (Diagnosis) (1) Atrial flutter Current Visit: Yes Status: Acute (2) Hypothyroidism Current Visit: Yes Status: Acute (3) Hypertension Current Visit: Yes Status: Acute - Plan Atrial flutter New onset. Admit to the medical floor Telemetry Spontaneous cardioversion with IV Cardizem bolus. Patient currently in sinus bradycardia. Resume home dose Coreg Cardiology consult Obtain echocardiogram Initial troponin is negative. Trend troponin Essential hypertension Blood pressure readings improved in the ED Resume home antihypertensives. Acquired hypothyroidism Check TSH and free T4 to rule out iatrogenic hyperthyroidism causing atrial flutter/A-fib. Adjust Synthroid dose based on TSH result. DVT prophylaxis: Lovenox SQ. - Advance Directives Does patient have a Living Will: No Does patient have a Durable POA for Healthcare: No
[2023-07-27] MEDS ORDERED: IBUPROFEN 200 MG TAB PO ONE (00:33)
[2023-07-27] MEDS: METOPROLOL TAR 25 MG TAB ONE (00:34)
[2023-07-27] MEDS: IBUPROFEN 200 MG TAB PO ONE (00:37)
[2023-07-27] MEDS: METOPROLOL XL 25 MG TAB PO SCH (00:39)
[2023-07-27 01:19] VITALS: BMI 28.6
[2023-07-27] MEDS ORDERED: DILTIAZEM INJ 125 MG/25 ML 125 MG in NA CHLORIDE 0.9% 100 ML IV SCH (01:45)
[2023-07-27] MEDS ORDERED: dilTIAZem HCL 25 MG/5 ML VIAL IV ONE (01:49)
[2023-07-27] MEDS ORDERED: NA CHLORIDE 0.9% 0 ML ONE (01:50)
[2023-07-27 04:58] LABS: Absolute Lymphocytes (CBC) 2.3 K/uL (0.7-4.9); Hematocrit 38.3 % (36.0-45.0); Lymphocytes % 46.9 % (15.3-44.8); MCV 96.9 fL (80-100); MPV 9.8 fL (7.6-11.3); Platelets 116 thou/uL (152-406); RBC Red Blood Cell Count 3.95 M/uL (3.86-4.86)
[2023-07-27 05:28] LABS: Magnesium 2.1 mg/dL (1.6-2.4); Phosphorus 3.2 mg/dL (2.5-4.9); Potassium 3.7 mEq/L (3.5-5.1); Thyroid Stimulating Hormone 0.392 uIU/mL (0.358-3.740)
[2023-07-27] MEDS ORDERED: ENOXAPARIN 40 MG/0.4 ML SQ ONE (07:46)
[2023-07-27] MEDS ORDERED: PNEUMOCOCCAL VACCINE 0.5 ML IMVAC ONE (08:00)
[2023-07-27] MEDS: POTASSIUM CL SA 10 MEQ TAB PO ONE (08:01)
[2023-07-27] MEDS: ENOXAPARIN 40 MG/0.4 ML SQ SCH (08:01)
[2023-07-27] MEDS ORDERED: FAMOTIDINE 20 MG/2 ML VIAL IV SCH (09:01)
[2023-07-27 09:23] VITALS: TEMP 97.3; O2SAT 97
[2023-07-27] MEDS: FAMOTIDINE 20 MG TAB PO SCH (09:34)
--- NOTE | 2023-07-27 13:14 | P.CNS ---
Date of Consult: 07/27/23 Chief Complaint: Palpitation History of Present Illness: patient presented with SOB and new onset palpitations, denies any other associated symptoms, patient has history of hypothyroid and sleep apnea. with recent COVID infection. Allergies venom-honey bee [bee venom (honey bee)] Allergy (Intermediate, Verified 07/03/19 07:05) Anaphylaxis ceftriaxone [From Rocephin] Allergy (Mild, Verified 07/04/23 20:03) Itching eszopiclone [From Lunesta] Allergy (Verified 07/03/19 07:05) headache meloxicam [From Mobic] Allergy (Verified 07/03/19 07:05) Unknown rofecoxib [From Vioxx] Allergy (Verified 07/03/19 07:05) Unknown zolpidem [From Ambien] Allergy (Verified 07/03/19 07:05) sleeps too long azithromycin [From Zithromax Z-Dioni] Adverse Reaction (Mild, Verified 07/03/19 07:05) sob/heart racing vomiting cephalexin monohydrate [From Keflex] Adverse Reaction (Mild, Verified 07/03/19 07:05) swelling Penicillins Adverse Reaction (Mild, Verified 07/03/19 07:05) swelling Sulfa (Sulfonamide Antibiotics) [Sulfa(Sulfonamide Antibiotics)] Adverse Reaction (Mild, Verified 07/03/19 07:05) Rash OXY MEDS Allergy (Uncoded 07/03/19 07:05) Unknown steroids Adverse Reaction (Mild, Uncoded 07/03/19 07:05) swelling Home Medications: Gabapentin 600 mg PO TID 04/23/19 Levothyroxine [Synthroid*] 125 mcg PO [id number] 04/23/19 Ascorbic Acid [Vitamin C] 1,000 mg PO DAILY 07/03/19 Amitriptyline [Elavil*] 50 mg PO BEDTIME 07/05/23 Carvedilol Phosphate [Carvedilol ER] 80 mg PO DAILY 07/05/23 Famotidine [Pepcid*] 20 mg PO BID 07/05/23 Furosemide 20 mg PO EVERY 3RD DAY 07/05/23 Linaclotide [Linzess] 290 mg PO DAILY 07/05/23 Montelukast [Singulair*] 10 mg PO BEDTIME 07/05/23 Omeprazole 20 mg PO DAILY 07/05/23 Ramipril [Altace] 10 mg PO BEDTIME 07/05/23 Potassium Chloride 0.5 tab PO DAILY 07/27/23 - Past Medical/Surgical History Diabetic: No -: HTN -: Hypothyroid -: chronic pain -: slipped disc -: Gi Bleed -: Liver Failure -: gallbladder -: , hysterectomy -: appendix -: pain pump R implant - Family History Brother Medical History: Liver disease - Social History Smoking Status: Current every day smoker Alcohol use: No CD- Drugs: No Caffeine use: Yes Place of Residence: Home Review of Systems 10-point ROS is otherwise unremarkable Physical Examination Temp Pulse Resp BP Pulse Ox 97.3 F 54 16 131/92 H 100 07/27/23 12:00 07/27/23 13:00 07/27/23 13:00 07/27/23 13:00 07/27/23 12:00 General: Alert HEENT: Atraumatic Neck: Supple Respiratory: Clear to auscultation bilaterally Cardiovascular: No edema, Normal S1 S2 Gastrointestinal: Normal bowel sounds Laboratory Data (last 24 hrs) 07/26/23 07/26/23 07/26/23 19:15 19:15 19:15 WBC 5.90 Hgb 13.6 Hct 39.9 Plt Count 148 L PT 11.9 INR 1.00 Sodium 141 Potassium 4.0 BUN 12 Creatinine 1.02 Glucose 150 H Magnesium 2.0 Total Bilirubin 0.6 AST 17 ALT 23 Alkaline Phosphatase 112 - Problems (1) Atrial flutter Current Visit: Yes Status: Acute Plan: Continue Toprol XL 25 mg daily Start Eliquis 5 mg po BID follow up with cardiology in clinic.
[2023-07-27 13:24] VITALS: BP 131/92
--- NOTE | 2023-07-27 14:03 | ECHO ---
HEIGHT: 5 ft 6 in WEIGHT: 177 lb 11.081 oz DATE OF STUDY: 07/27/[address]: Nicolas Beckett MD 2-DIMENSIONAL: YES M.MODE: YES DOPPLER: YES COLOR FLOW: YES TDS: NO PORTABLE: YES DEFINITY: NO BUBBLE STUDY: NO DIAGNOSIS: ATRIAL FLUTTER CARDIAC HISTORY: CATHERIZATION: SURGERY: PROSTHETIC VALVE: PACEMAKER: MEASUREMENTS (cm) DIASTOLIC (NORMALS) SYSTOLIC (NORMALS) IVSd 0.9 (0.6-1.2) LA Diam 3.5 (1.9-4.0) LVEF 69% LVIDd 4.1 (3.5-5.7) LVIDs 2.5 (2.0-3.5) %FS 38% LVPWd 0.9 (0.6-1.2) Ao Diam 2.6 (2.0-3.7) 2 DIMENSIONAL ASSESSMENT: RIGHT ATRIUM: NORMAL LEFT ATRIUM: NORMAL RIGHT VENTRICLE: NORMAL LEFT VENTRICLE: NORMAL TRICUSPID VALVE: MILD TRICUSPID REGURGITATION MITRAL VALVE: NORMAL PULMONIC VALVE: NORMAL AORTIC VALVE: NORMAL PERICARDIAL EFFUSION: NONE AORTIC ROOT: NORMAL LEFT VENTRICULAR WALL MOTION: NORMAL. DOPPLER/COLOR FLOW: NORMAL. COMMENTS: 1. NORMAL LEFT VENTRICULAR SYSTOLIC FUNCTION, EJECTION FRACTION 55-60%, NORMAL WALL MOTION. 2. MILD TRICUSPID REGURGITATION, RIGHT VENTRICULAR SYSOTLIC PRESSURE 35-40mmHg 3. NORMAL DIASTOLIC FUNCTION. TECHNOLOGIST: NEERAJ GONZALEZ
--- NOTE | 2023-07-27 15:24 | EKG ---
Test Date: 2023-07-26 Test Time: 19:52:23 Occupational Therapist'S Assistant: SHANTI MEASUREMENT RESULTS: Intervals: Rate: 53 MS: 156 QRSD: 74 QT: 416 QTc: 390 [place]: P: 38 MS: 156 QRS: 66 T: 47 INTERPRETIVE STATEMENTS: Sinus bradycardia Otherwise normal ECG Compared to ECG 07/26/2023 18:53:02 Atrial flutter no longer present Myocardial infarct finding no longer present Electronically Signed On 07-27-23 15:22:44 WASHER ASSEMBLER by Michael Chávez
--- NOTE | 2023-07-27 15:24 | EKG ---
Test Date: 2023-07-26 Test Time: 18:53:02 Slime Plant Operator Helper: SILVER MEASUREMENT RESULTS: Intervals: Rate: 145 ME: QRSD: 94 QT: 264 QTc: 410 [place]: P: ME: QRS: 57 T: -30 INTERPRETIVE STATEMENTS: Atrial flutter with variable AV block Posterior infarct, age undetermined Abnormal ECG Compared to ECG 07/04/2023 16:30:27 Myocardial infarct finding now present Right ventricular hypertrophy no longer present Early repolarization no longer present T-wave abnormality no longer present Possible ischemia no longer present Electronically Signed On 07-27-23 15:23:21 CLOTH NEUTRALIZER by Michael Chávez
== END 2023-07-27 15:16 | disposition home or self-care (01) ==
LOC: ER 18:45 → INTOOBSV 22:14 → ERHOLD 22:14 → 3RD-ICU 23:57
PROVIDERS: ADMIT Internal Medicine; ATTEND Hospitalist
DX: I48.92 Unspecified atrial flutter (principal); I10 Essential (primary) hypertension; E03.9 Hypothyroidism, unspecified; R07.9 Chest pain, unspecified; R06.02 Shortness of breath; Z88.0 Allergy status to penicillin; Z88.2 Allergy status to sulfonamides; Z88.8 Allergy status to other drugs, medicaments and biological substances; Z91.030 Bee allergy status
CPT/HCPCS: 36415; 71045; 80048; 80061; 80076; 80179; 83735; 83880; 84100; 84443; 84484; 85025; 85610; 93005; 93306; 94760; 96372; 96374; 99285; G0378; J1650; J7030

== ENCOUNTER 2023-10-29 13:35 | Inpatient (IN) | payer OTHER ==
[2023-10-29 14:41] LABS: Absolute Basophils 0.1 K/uL (0-0.5); Absolute Lymphocytes (CBC) 1.2 K/uL (0.7-4.9); Absolute Monocytes 1.6 K/uL (0.1-1.3); Absolute Neutrophil 17.7 K/uL (1.8-8.0); Basophils % 0.3 % (0-1.3); Eosinophils % 0.1 % (0-4.4); Hematocrit 50.2 % (36.0-45.0); Hemoglobin 16.5 g/dL (12.0-15.0); Lymphocytes % 5.8 % (15.3-44.8); MCH 31.8 pg (27.0-35.0); MCHC 32.9 g/dL (32.0-36.0); MCV 96.5 fL (80-100); MPV 10.7 fL (7.6-11.3); Monocytes % 7.7 % (3.3-12.3); Neutrophils % 86.1 % (41.7-73.7); Platelets 208 thou/uL (152-406)
[2023-10-29 14:54] LABS: PT Prothrombin Time 12.6 SECONDS (9.5-12.5); PTT, Activated Partial Thromb 22.4 SECONDS (24.3-36.9); Protime INR 1.15
--- NOTE | 2023-10-29 15:04 | RAD REPORT ---
EXAM DESCRIPTION: Favio Single View10/29/2023 2:38 pm CLINICAL HISTORY: Chest pain COMPARISON: June 2023 FINDINGS: Mild to moderate bilateral interstitial lung opacities without change. Heart is mildly enlarged IMPRESSION: Mild to moderate bilateral interstitial lung opacities probably are mostly if not all ch ronic
--- NOTE | 2023-10-29 15:06 | RAD REPORT ---
EXAM DESCRIPTION: CT - Head Brain Wo Cont - 10/29/2023 2:42 pm CLINICAL HISTORY: Syncope COMPARISON: 1999 TECHNIQUE: Computed axial tomography of the head was obtained. IV contrast was not requested. All CT scans are performed using dose optimization technique as appropriate and may include automated exposure control or mA/KV adjustment according to patient size. FINDINGS: An intracranial bleed is not seen The ventricles are normal in caliber No significant hypodense areas within the brain visualized No extra-axial fluid collection is noted. Fluid within the sinuses/ mastoids is not seen IMPRESSION: No acute intracranial abnormality is seen If patient's symptoms persist MRI of the brain would be recommended
[2023-10-29] MEDS ORDERED: ONDANSETRON 4 MG/2 ML VIAL ONE (15:08)
[2023-10-29 15:16] LABS: Albumin 3.2 g/dL (3.4-5.0); Albumin/Globulin Ratio 0.7 (1.1-1.8); Anion Gap 9.5 mEq/L (5.0-15.0); Bilirubin Direct 0.3 mg/dL (0-0.2); Bilirubin Indirect, Calculated 1.4 mg/dL (0.2-0.8); Bilirubin Total 1.7 mg/dL (0.2-1.0); Globulin 4.8 g/dL (2.3-3.5); Magnesium 2.6 mg/dL (1.6-2.4); Potassium 4.5 mEq/L (3.5-5.1); Troponin High Sensitivity 46.4 pg/mL (<58.9)
--- NOTE | 2023-10-29 16:24 | RAD REPORT ---
EXAM DESCRIPTION: CT - Chest Abd Pelvis Wo Con - 10/29/2023 4:06 pm CLINICAL HISTORY: Chest and abdominal pain COMPARISON: CT chest June 2023 Chest and abdomen 2019 TECHNIQUE: Computed axial tomography of the chest, abdomen and pelvis was obtained. Oral contrast wa s given. IV contrast was not requested. All CT scans are performed using dose optimization technique as appropriate and may include automated exposure control or mA/KV adjustment according to patient size. FINDINGS: The evaluation of mediastinum, ramona, vessels and solid organs is limited secondary to the lack of IV contrast administration [id number] bilateral interstitial opacities. Mild bilateral ground-glass opacities within the l ungs. No mediastinal or hilar lymphadenopathy is seen. A pleural effusion is not present. A pericardial effusion is not seen. Coronary arterial calcifications Cirrhotic liver. Cholecystectomy. Spleen, pancreas, adrenals kidneys appear grossly normal. There is no evidence of diverticulitis. Hysterectomy. No adnexal mass. Neurostimulator device is in place. Cecum is mildly distended measuring 7.8 centimeters IMPRESSION: Mild to moderate chronic appearing interstitial lung opacities. Mild bilateral ground-glass opacities the lungs indicative of an alveolitis Mild cecal distention
--- NOTE | 2023-10-29 16:26 | RAD REPORT ---
EXAM DESCRIPTION: RAD - Ankle Left 3 View -10/29/2023 3:59 pm CLINICAL HISTORY: Left ankle pain FINDINGS: No fracture or dislocation is seen.
--- NOTE | 2023-10-29 16:30 | EDPHYS ---
Physician Documentation [facility] Name: Kaitlyn Sesay Age: 63 yrs Sex: Female : 1960 Arrival Date: 10/29/2023 Time: 13:35 Bed 16 Private MD: ED Physician Lyric Mccullough HPI: 10/28 18:26 This 63 yrs old Female presents to ER via EMS with complaints of Abdominal Pain, sb4 Nausea/Vomiting/Diarrhea. 18:27 Patient with NAFLD, struggle with constipation. Says she took 2 Dulcolax last night, sb4 started experiencing a lot of diarrhea this morning as well as nausea and vomiting. Her sister states that she had a syncopal episode versus seizure and that she has been more confused than usual. She states that she acted like this in the past when her ammonia levels were elevated. She was hypotensive with EMS but improved with IV fluids. Historical: - Allergies: 13:54 Azithromycin; kc6 13:54 Cephalexin; kc6 13:54 PENICILLINS; kc6 13:54 Rocephin; kc6 13:54 Rofecoxib; kc6 13:54 Sulfa (Sulfonamide Antibiotics); kc6 13:54 "STEROIDS"; kc6 13:54 Bees; kc6 13:54 Codeine; kc6 13:54 Oxycodone; kc6 - PMHx: 13:54 Chronic pain; GI Bleed; Hypercholesterolemia; Hypertensive disorder; liver failure; kc6 Thyroid problem; 15:43 Cirrhosis of liver; esophageal varicies; fentanyl pump; kc6 - PSHx: 15:43 L5 \\T\\ S1; kc6 - Immunization history:: Adult Immunizations up to date. - Infectious Disease History:: Denies. - Social history:: Smoking status: Patient/guardian denies using tobacco, Stopped _ months ago 3. ROS: 18:27 Constitutional: Negative for fever, chills, and weight loss, sb4 18:27 Abdomen/GI: Positive for nausea, vomiting, and diarrhea, 18:27 Neuro: Positive for dizziness, syncope, 18:27 All other systems are negative, Exam: 18:27 Head/Face: Normocephalic, atraumatic. Eyes: Extra-ocular motions intact. Periorbital sb4 areas with no swelling, redness, or edema. Cardiovascular: Regular rate and rhythm with a normal S1 and S2. Respiratory: Lungs have equal breath sounds bilaterally, clear to auscultation and percussion. No rales, rhonchi or wheezes noted. No increased work of breathing, no retractions or nasal flaring. Abdomen/GI: Soft, non-tender, no distension. 18:27 Constitutional: The patient appears alert, awake, 18:27 ENT: Mouth: Oral mucosa: dry, 18:27 Skin: injury, abrasion(s), small abrasion noted, of the right leg and left leg, Vital Signs: 13:51 BP 115 / 63; Pulse 74; Resp 15 S; Temp 98.2(O); Pulse Ox 93% on R/A; Weight 78.47 kg kc6 (R); Height 5 ft. 5 in. (R); Pain 7/10; 14:30 BP 94 / 62; kc6 15:27 BP 102 / 60; Pulse 78; Resp 19 S; Pulse Ox 97% on R/A; kc6 16:22 BP 124 / 60; Pulse 83; Resp 16 S; Pulse Ox 98% on R/A; kc6 18:06 BP 93 / 62; Pulse 85; Resp 15 S; Pulse Ox 99% on R/A; kc6 19:10 BP 104 / 61; Pulse 86; Resp 18 S; Pulse Ox 98% on R/A; kc6 13:51 Body Mass Index 28.79 (78.47 kg, 165.1 cm) kc6 13:51 Pain Scale: Adult kc6 MDM: 13:50 Patient medically screened. sb4 18:27 Data reviewed: vital signs, nurses notes, EMS record, lab test result(s), EKG, sb4 radiologic studies, and as a result, I will admit patient. Consideration of Admission/Observation Patient was admitted/placed on observation. Care significantly affected by the following chronic conditions: Hypertension, Liver Disease. Counseling: I had a detailed discussion with the patient and/or guardian regarding the historical points, exam findings, and any diagnostic results supporting the discharge/admit diagnosis, lab results, radiology results, the need for further work-up and treatment in the hospital. 10/28 14:05 Order name: Basic Metabolic Panel; Complete Time: 15:18 sb4 10/28 14:05 Order name: CBC with Diff; Complete Time: 08:23 sb4 10/28 14:05 Order name: Hepatic Function; Complete Time: 15:18 sb4 10/28 14:05 Order name: Magnesium; Complete Time: 15:18 sb4 10/28 14:05 Order name: Protime (+inr); Complete Time: 15:00 sb4 10/28 14:05 Order name: Ptt, Activated; Complete Time: 15:00 sb4 10/28 14:05 Order name: Troponin High Sensitivity; Complete Time: 15:18 sb4 10/28 14:05 Order name: AMMONIA; Complete Time: 15:03 sb4 10/28 20:08 Order name: Manual Differential; Complete Time: 08:23 EDMS 10/28 14:05 Order name: CT Head Brain wo Cont; Complete Time: 15:10 sb4 10/28 14:05 Order name: Chest Single View XRAY; Complete Time: 15:10 sb4 10/28 15:19 Order name: CT Chest Abdomen Pelvis W/O Contrast; Complete Time: 16:25 sb4 10/28 15:43 Order name: Ankle Left 3 View XRAY; Complete Time: 16:27 sb4 10/28 14:05 Order name: EKG; Complete Time: 14:06 sb4 10/28 14:05 Order name: Cardiac monitoring; Complete Time: 14:28 sb4 10/28 14:05 Order name: EKG - Nurse/Tech; Complete Time: 14:28 sb4 10/28 14:05 Order name: IV Saline Lock; Complete Time: 14:28 sb4 10/28 14:05 Order name: Labs collected and sent; Complete Time: 14:28 sb4 10/28 14:05 Order name: NPO; Complete Time: 14:28 sb4 10/28 14:05 Order name: O2 Per Protocol; Complete Time: 14:28 sb4 10/28 14:05 Order name: O2 Sat Monitoring; Complete Time: 14:28 sb4 EC:39 Rate is 74 beats/min. Rhythm is regular, Normal Sinus Rhythm. ID interval is normal at sb4 148 msec. QRS interval is normal at 94 msec. QT interval is normal at 406 msec. Clinical impression: NSR w/ Non-specific ST/T Changes. Interpreted by me. Reviewed by me. Administered Medications: 15:21 Drug: Ondansetron IVP 4 mg IVP once; over 2 minutes Route: IVP; Site: right hand; kc6 16:22 Follow up: Response: No adverse reaction; Nausea is decreased kc6 16:39 Drug: levofloxacin IVPB 750 mg 150 ml IVPB once over 90 mins Volume: 150 ml; Route: kc6 IVPB; Infused Over: 90 mins; Site: right hand; 18:21 Follow up: Response: No adverse reaction; IV Status: Completed infusion; IV Intake: kc6 150ml 17:57 Drug: Dicyclomine IM 20 mg IM once Route: IM; Site: left deltoid; kc6 19:09 Follow up: Response: No adverse reaction kc6 17:57 Drug: NS 0.9% IV 1000 ml IV at 1000 ml once Route: IV; Rate: 1000 ml; Site: right hand; kc6 19:09 Follow up: Response: No adverse reaction; IV Status: Completed infusion; IV Intake: kc6 1000ml Disposition Summary: 10/29/23 16:29 Hospitalization Ordered Notes: Hospitalization Status: Inpatient Admission sb4 Provider: Juan Carlos Santa sb4 Location: Telemetry/[facility] (Inpatient) sb4 Condition: Fair sb4 Problem: new sb4 Symptoms: are unchanged sb4 Bed/Room Type: Standard sb4 Room Assignment: 222(10/29/23 18:04) eb Diagnosis - Alveolitis sb4 - Elevated white blood cell count sb4 - Acute kidney failure, unspecified sb4 - Syncope Near sb4 Forms: - Medication Reconciliation Form sb4 - SBAR form sb4 - Leadership Thank You Letter sb4 Signatures: Dispatcher [employer] EDHung Rutledge FNP-C CLINICAL LABORATORY ASSISTANT-Cla1 Brenda Hummel Kaitlyn RN RN kc6 Tatiana Garcia PA-C PAStefany sb4 Corrections: (The following items were deleted from the chart) 14:06 14:06 Chest Single View+RAD.RAD.BRZ ordered. EDMS EDMS 15:37 15:19 Abdomen Pelvis Wo Con+CT.RAD.BRZ ordered. EDMS EDMS 18:04 16:29 sb4 eb 18:28 18:27 Patient with NAFLD, struggle with constipation. Says she took 2 Dulcolax last sb4 night, started experiencing a lot of diarrhea this morning as well as nausea and vomiting. Her sister states that she had a syncopal episode versus seizure and that she has been more confused than usual. She states that she acted like this in the past when her ammonia levels were elevated. sb4
--- NOTE | 2023-10-29 16:30 | ER ---
Nurse's Notes [facility] Name: Kaitlyn Sesay Age: 63 yrs Sex: Female : 1960 Arrival Date: 10/29/2023 Time: 13:35 Bed 16 Private MD: Diagnosis: Alveolitis;Elevated white blood cell count;Acute kidney failure, unspecified;Syncope Near Presentation: 10/28 13:51 Chief complaint: EMS states: THEY WERE TONED OUT FOR SYNCOPE. PT STATES SHE STARTED kc6 WITH N/V/D AND ABD PAIN THIS AM AT 1000. 4MG OF IV ZOFRAN GIVEN EN ROUTE. Coronavirus screen: At this time, the client does not indicate any symptoms associated with coronavirus-19. Ebola Screen: No symptoms or risks identified at this time. Initial Sepsis Screen: Does the patient meet any 2 criteria? No. Patient's initial sepsis screen is negative. Does the patient have a suspected source of infection? No. Patient's initial sepsis screen is negative. Risk Assessment: Do you want to hurt yourself or someone else? Patient reports no desire to harm self or others. Onset of symptoms was October 29, 2023. 13:51 Method Of Arrival: EMS: [facility] kc6 13:51 Acuity: VIKRAM 3 kc6 Triage Assessment: 13:54 General: Appears in no apparent distress. comfortable, well groomed, well developed, kc6 Behavior is calm, cooperative, appropriate for age. Pain: Complains of pain in abdomen Pain currently is 7 out of 10 on a pain scale. EENT: No signs and/or symptoms were reported regarding the EENT system. Neuro: Level of Consciousness is awake, alert, obeys commands, Oriented to person, place, time, situation, Appropriate for age Reports a syncopal episode. Cardiovascular: Capillary refill < 3 seconds. Respiratory: Airway is patent Trachea midline Respiratory effort is even, unlabored, Respiratory pattern is regular, symmetrical. GI: Abdomen is flat, non-distended, Bowel sounds present X 4 quads. Abd is soft X 4 quads Abdomen is tender to palpation in right lower quadrant and left lower quadrant Reports lower abdominal pain, diarrhea, nausea, vomiting. : No signs and/or symptoms were reported regarding the genitourinary system. Derm: No signs and/or symptoms reported regarding the dermatologic system. Skin is intact, is healthy with good turgor, Skin is dry, Skin is pale, Skin temperature is warm. Musculoskeletal: No signs and/or symptoms reported regarding the musculoskeletal system. Circulation, motion, and sensation intact. Capillary refill < 3 seconds, Range of motion: intact in all extremities. Historical: - Allergies: 13:54 Azithromycin; kc6 13:54 Cephalexin; kc6 13:54 PENICILLINS; kc6 13:54 Rocephin; kc6 13:54 Rofecoxib; kc6 13:54 Sulfa (Sulfonamide Antibiotics); kc6 13:54 "STEROIDS"; kc6 13:54 Bees; kc6 13:54 Codeine; kc6 13:54 Oxycodone; kc6 - PMHx: 13:54 Chronic pain; GI Bleed; Hypercholesterolemia; Hypertensive disorder; liver failure; kc6 Thyroid problem; 15:43 Cirrhosis of liver; esophageal varicies; fentanyl pump; kc6 - PSHx: 15:43 L5 \\T\\ S1; kc6 - Immunization history:: Adult Immunizations up to date. - Infectious Disease History:: Denies. - Social history:: Smoking status: Patient/guardian denies using tobacco, Stopped _ months ago 3. Screenin:56 [facility] ED Fall Risk Assessment (Adult) History of falling in the last 3 months, kc6 including since admission No falls in past 3 months (0 pts) Confusion or Disorientation No (0 pts) Intoxicated or Sedated No (0 pts) Impaired Gait No (0 pts) Mobility Assist Device Used No (0 pt) Altered Elimination No (0 pt) Score/Fall Risk Level 0 - 2 = Low Risk. Abuse screen: Denies threats or abuse. Denies injuries from another. Nutritional screening: No deficits noted. Tuberculosis screening: No symptoms or risk factors identified. Assessment: 13:56 Reassessment: PLEASE SEE TRIAGE. kc6 14:56 Reassessment: Patient appears in no apparent distress at this time. No changes from kc6 previously documented assessment. Patient and/or family updated on plan of care and expected duration. Pain level reassessed. Patient is alert, oriented x 3, equal unlabored respirations, skin warm/dry/pink. 15:56 Reassessment: Patient appears in no apparent distress at this time. No changes from kc6 previously documented assessment. Patient and/or family updated on plan of care and expected duration. Pain level reassessed. Patient is alert, oriented x 3, equal unlabored respirations, skin warm/dry/pink. 16:56 Reassessment: Patient appears in no apparent distress at this time. No changes from kc6 previously documented assessment. Patient and/or family updated on plan of care and expected duration. Pain level reassessed. Patient is alert, oriented x 3, equal unlabored respirations, skin warm/dry/pink. 17:56 Reassessment: Patient appears in no apparent distress at this time. No changes from kc6 previously documented assessment. Patient and/or family updated on plan of care and expected duration. Pain level reassessed. Patient is alert, oriented x 3, equal unlabored respirations, skin warm/dry/pink. 18:56 Reassessment: Patient appears in no apparent distress at this time. No changes from kc6 previously documented assessment. Patient and/or family updated on plan of care and expected duration. Pain level reassessed. Patient is alert, oriented x 3, equal unlabored respirations, skin warm/dry/pink. 20:42 Reassessment: Patient appears in no apparent distress at this time. No changes from lg3 previously documented assessment. Patient and/or family updated on plan of care and expected duration. Pain level reassessed. Patient is alert, oriented x 3, equal unlabored respirations, skin warm/dry/pink. Vital Signs: 13:51 BP 115 / 63; Pulse 74; Resp 15 S; Temp 98.2(O); Pulse Ox 93% on R/A; Weight 78.47 kg kc6 (R); Height 5 ft. 5 in. (R); Pain 7/10; 14:30 BP 94 / 62; kc6 15:27 BP 102 / 60; Pulse 78; Resp 19 S; Pulse Ox 97% on R/A; kc6 16:22 BP 124 / 60; Pulse 83; Resp 16 S; Pulse Ox 98% on R/A; kc6 18:06 BP 93 / 62; Pulse 85; Resp 15 S; Pulse Ox 99% on R/A; kc6 19:10 BP 104 / 61; Pulse 86; Resp 18 S; Pulse Ox 98% on R/A; kc6 13:51 Body Mass Index 28.79 (78.47 kg, 165.1 cm) kc6 13:51 Pain Scale: Adult kc6 ED Course: 13:49 Patient arrived in ED. kc6 13:50 [facility] 13:50 Lyric Mccullough MD is Attending Physician. sb4 13:51 Jennie Ford, SRI is Primary Nurse. kc6 13:54 Triage completed. kc6 13:54 Arm band placed on. kc6 13:57 Patient has correct armband on for positive identification. Placed in gown. Bed in low kc6 position. Call light in reach. Side rails up X2. Adult w/ patient. Client placed on continuous cardiac and pulse oximetry monitoring. NIBP monitoring applied. monitor technician on. Door closed. Noise minimized. Lights dimmed. Warm blanket given. Pillow given. Patient is placed in psych hold. Cleaned of incontinence. Linen changed. 13:57 Maintain EMS IV. Dressing intact. Good blood return noted. Site clean \\T\\ dry. Gauge \\T\\ megan 6 site: 22G RHAND. 14:28 Missed attempt(s): 22 gauge in left antecubital area. kc6 14:39 Chest Single View XRAY In Process Unspecified. EDMS 14:44 CT Head Brain wo Cont In Process Unspecified. EDMS 16:00 Cleaned of incontinence. Linen changed. kc6 16:01 Ankle Left 3 View XRAY In Process Unspecified. EDMS 16:08 CT Chest Abdomen Pelvis W/O Contrast In Process Unspecified. EDMS 16:28 Nathan Santa MD is Hospitalizing Provider. sb4 16:28 Juan Carlos Santa MD is Hospitalizing Provider. sb4 16:57 Diet: Patient given a regular meal tray. kc6 19:00 Report given to SRI Walters. kc6 19:52 Primary Nurse role handed off by Jennie Ford, SRI as6 20:42 No provider procedures requiring assistance completed. Patient admitted, IV remains in lg3 place. Administered Medications: 15:21 Drug: Ondansetron IVP 4 mg IVP once; over 2 minutes Route: IVP; Site: right hand; kc6 16:22 Follow up: Response: No adverse reaction; Nausea is decreased kc6 16:39 Drug: levofloxacin IVPB 750 mg 150 ml IVPB once over 90 mins Volume: 150 ml; Route: kc6 IVPB; Infused Over: 90 mins; Site: right hand; 18:21 Follow up: Response: No adverse reaction; IV Status: Completed infusion; IV Intake: kc6 150ml 17:57 Drug: Dicyclomine IM 20 mg IM once Route: IM; Site: left deltoid; kc6 19:09 Follow up: Response: No adverse reaction kc6 17:57 Drug: NS 0.9% IV 1000 ml IV at 1000 ml once Route: IV; Rate: 1000 ml; Site: right hand; kc6 19:09 Follow up: Response: No adverse reaction; IV Status: Completed infusion; IV Intake: kc6 1000ml Medication: 20:42 VIS not applicable for this client. lg3 Intake: 18:21 IV: 150ml; Total: 150ml. kc6 19:09 IV: 1000ml; Total: 1150ml. kc6 Outcome: 16:29 Decision to Hospitalize by Provider. sb4 20:42 Admitted to Med/surg accompanied by tech, via stretcher, lg3 20:42 Condition: stable 20:42 Instructed on the need for admit, Demonstrated understanding of instructions, 20:42 Patient left the ED. lg3 Signatures: Dispatcher [employer] EDMS Selena Hopper RN RN lg3 Ke Grace, SRI bearden6 Jennie Ford RN RN megan6 Tatiana Garcia PA-C PAStefany sb4
[2023-10-29] MEDS ORDERED: Levofloxacin 750mg IV 750 MG/150 ML BAG IV ONE (16:34)
--- NOTE | 2023-10-29 17:38 | P.HP ---
Certification for Inpatient Patient admitted to: Inpatient With expected LOS: >2 Midnights Patient will require the following post-hospital care: None Practitioner: I am a practitioner with admitting privileges, knowledge of patient current condition, hospital course, and medical plan of care. Services: Services provided to patient in accordance with Admission requirements found in Title 42 Section 412.3 of the Code of Federal Regulations Patient History Date of Service: 10/29/23 Reason for admission: CLARA, diarrhea History of Present Illness: 63-year-old female with history of atrial flutter on anticoagulation, nonalcoholic cirrhosis of the liver, previous upper GI bleed, hypertension, hypothyroidism, chronic pain presents to the emergency department with chief complaint of near syncope, fall, diarrhea. She reports that she deals with chronic constipation as she has a fentanyl pump in place for her chronic back pain, she typically takes Linzess but her prescription had run out and she did not want to get constipated so she took 2 Dulcolax at home on Monday. Around 10 AM this morning she started to have watery diarrhea, she reports between 5 and 10 episodes of watery diarrhea associated with abdominal cramping and nausea, she also 3 episodes of vomiting. She was evaluated in the emergency department and her labs are significant for white blood cell count of 20.6 hemoglobin 16.5 hematocrit 50.2 creatinine 1.51 GFR 38 magnesium 2.6 T. bili 1.[address] chest abdomen pelvis with IV contrast was performed which revealed mild to moderate chronic appearing interstitial lung opacities. Allergies venom-honey bee [bee venom (honey bee)] Allergy (Intermediate, Verified 07/03/19 07:05) Anaphylaxis ceftriaxone [From Rocephin] Allergy (Mild, Verified 07/04/23 20:03) Itching eszopiclone [From Lunesta] Allergy (Verified 07/03/19 07:05) headache meloxicam [From Mobic] Allergy (Verified 07/03/19 07:05) Unknown rofecoxib [From Vioxx] Allergy (Verified 07/03/19 07:05) Unknown zolpidem [From Ambien] Allergy (Verified 07/03/19 07:05) sleeps too long azithromycin [From Zithromax Z-Dioni] Adverse Reaction (Mild, Verified 07/03/19 07:05) sob/heart racing vomiting cephalexin monohydrate [From Keflex] Adverse Reaction (Mild, Verified 07/03/19 07:05) swelling Penicillins Adverse Reaction (Mild, Verified 07/03/19 07:05) swelling Sulfa (Sulfonamide Antibiotics) [Sulfa(Sulfonamide Antibiotics)] Adverse Reaction (Mild, Verified 07/03/19 07:05) Rash OXY MEDS Allergy (Uncoded 07/03/19 07:05) Unknown steroids Adverse Reaction (Mild, Uncoded 07/03/19 07:05) swelling Home Medications: Gabapentin 600 mg PO TID 04/23/19 Levothyroxine [Synthroid*] 125 mcg PO [id number] 04/23/19 Ascorbic Acid [Vitamin C] 1,000 mg PO DAILY 07/03/19 Amitriptyline [Elavil*] 50 mg PO BEDTIME 07/05/23 Famotidine [Pepcid*] 20 mg PO BID 07/05/23 Furosemide 20 mg PO EVERY 3RD DAY 07/05/23 Linaclotide [Linzess] 290 mg PO DAILY 07/05/23 Montelukast [Singulair*] 10 mg PO BEDTIME 07/05/23 Omeprazole 20 mg PO DAILY 07/05/23 Ramipril [Altace] 10 mg PO BEDTIME 07/05/23 carvediloL phosphate [Carvedilol ER] 80 mg PO DAILY 07/05/23 Apixaban [Eliquis] 5 mg PO BID #60 tab 07/27/23 Metoprolol Succinate [Toprol Xl*] 25 mg PO DAILY #30 tab 07/27/23 Potassium Chloride 0.5 tab PO DAILY 07/27/23 - Past Medical/Surgical History Diabetic: No -: HTN -: Hypothyroid -: chronic pain -: slipped disc -: Gi Bleed -: Liver Failure -: Afib -: gallbladder -: , hysterectomy -: appendix -: pain pump R implant - Family History Brother -: Liver disease - Social History Smoking Status: Former smoker Alcohol use: No CD- Drugs: No Caffeine use: Yes Place of Residence: Home Review of Systems 10-point ROS is otherwise unremarkable Gastrointestinal: Nausea, Vomiting, Abdominal Pain, Diarrhea Physical Examination - Physical Exam General: Alert, In no apparent distress, Oriented x3 HEENT: Atraumatic, PERRLA, EOMI Neck: Supple, 2+ carotid pulse no bruit, No LAD Respiratory: Clear to auscultation bilaterally, Normal air movement Cardiovascular: Regular rate/rhythm, Normal S1 S2 Gastrointestinal: Normal bowel sounds, Tenderness (Mild epigastric tenderness) Musculoskeletal: No tenderness Integumentary: No rashes Neurological: Normal gait, Normal speech, Normal strength at 5/5 x4 extr, Normal tone - Studies Laboratory Data (last 24 hrs) 10/29/23 10/29/23 10/29/23 14:25 14:25 14:25 WBC 20.60 H Hgb 16.5 H Hct 50.2 H Plt Count 208 PT 12.6 H INR 1.15 APTT 22.4 L Sodium 140 Potassium 4.5 BUN 21 H Creatinine 1.51 H Glucose 92 Magnesium 2.6 H Total Bilirubin 1.7 H AST 65 H ALT 24 Alkaline Phosphatase 360 H Assessment and Plan - Plan Assessment: CLARA Diarrhea Hypovolemia Leukocytosis Alveolitis Atrial fibrillation on chronic anticoagulation Chronic pain with pain pump in place Opioid-induced constipation Cirrhosis of liver-nonalcoholic Hypertension Plan: CLARA Diarrhea Hypovolemia Likely secondary to Dulcolax Diarrhea seems to be slowing down Continue IV fluids, hold laxatives at this time Clinical diet advance as tolerated Repeat chemistry in the morning Leukocytosis Alveolitis CT chest findings with possible alveolitis although findings appear chronic Doubt acute infectious process Empiric antibiotics with Levaquin given leukocytosis although this is likely related hemoconcentration/reactive Atrial fibrillation on chronic anticoagulation Continue Eliquis Hold metoprolol/antihypertensives given borderline low blood pressures Resume home medications when appropriate Chronic pain with pain pump in place Notedfollows pain management Opioid-induced constipation Currently with diarrhea, hold Linzess/Dulcolax/MiraLAX Cirrhosis of liver-nonalcoholic Supportive care, monitor LFTs daily Hypertension Blood pressure soft currently, hold oral antihypertensive agents DVT PPX: Continue Eliquis Code status: Full Discharge Plan: Home Plan to discharge in: 24 Hours - Advance Directives Does patient have a Living Will: No Does patient have a Durable POA for Healthcare: No - Code Status/Comfort Care Code Status Assessed: Yes (Full code) Critical Care: No Time Spent Managing Pts Care (In Minutes): 70
[2023-10-29] MEDS ORDERED: DICYCLOMINE HCL 20 MG/2 ML AMP IM ONE (17:50)
[2023-10-29] MEDS ORDERED: NA CHLORIDE 0.9% 1,000 ML ONE (17:50)
[2023-10-29] MEDS ORDERED: SODIUM CHLORIDE 0.9% 10ML INJ IV PRN (19:13)
[2023-10-29 20:08] LABS: Band Neutrophils 12 % (0-1); Blood Morphology Comment NOT SEEN (NOT SEEN); Differential Total Cells Count 100; Lymphocytes 5 % (15-42); Monocytes 10 % (0-10); Platelet Estimate ADEQ; Segmented Neutrophils 73 % (40-80)
[2023-10-29 22:03] VITALS: BMI 29.6
[2023-10-29] MEDS: PANTOPRAZOLE 40 MG INJ IVP SCH (23:50)
[2023-10-29] MEDS: NA CHLORIDE 0.9% 1,000 ML IV SCH (23:50)
[2023-10-29] MEDS: APIXABAN 5 MG TABLET PO SCH (23:50)
[2023-10-29] MEDS: AMITRIPTYLINE 50 MG TAB PO SCH (23:50)
[2023-10-30] MEDS: AMITRIPTYLINE 50 MG TAB ONE (00:27)
[2023-10-30] MEDS: ONDANSETRON 4 MG/2 ML VIAL IV PRN (03:46)
[2023-10-30 06:19] LABS: Albumin 2.4 g/dL (3.4-5.0); Albumin/Globulin Ratio 0.7 (1.1-1.8); Anion Gap 9.6 mEq/L (5.0-15.0); Bilirubin Total 0.9 mg/dL (0.2-1.0); Globulin 3.5 g/dL (2.3-3.5); Magnesium 1.9 mg/dL (1.6-2.4); Potassium 3.6 mEq/L (3.5-5.1); Protein, Total 5.9 g/dL (6.4-8.2); Thyroid Stimulating Hormone 0.026 uIU/mL (0.358-3.740); Troponin High Sensitivity 46.3 pg/mL (<58.9)
[2023-10-30 08:13] LABS: Absolute Basophils 0.1 K/uL (0-0.5); Absolute Lymphocytes (CBC) 1.9 K/uL (0.7-4.9); Absolute Monocytes 1.3 K/uL (0.1-1.3); Absolute Neutrophil 8.5 K/uL (1.8-8.0); Basophils % 0.7 % (0-1.3); Eosinophils % 0.1 % (0-4.4); Hematocrit 37.2 % (36.0-45.0); Hemoglobin 12.1 g/dL (12.0-15.0); Lymphocytes % 15.8 % (15.3-44.8); MCH 31.6 pg (27.0-35.0); MCHC 32.6 g/dL (32.0-36.0); MCV 96.8 fL (80-100); MPV 10.4 fL (7.6-11.3); Monocytes % 11.1 % (3.3-12.3); Neutrophils % 72.3 % (41.7-73.7); Platelets 138 thou/uL (152-406); RBC Red Blood Cell Count 3.84 M/uL (3.86-4.86); Red Cell Distribution Width 13.9 % (12.1-15.2)
[2023-10-30] MEDS ORDERED: MYCOPHENOLATE MOFETIL 500 MG PO SCH (09:00)
[2023-10-30] MEDS ORDERED: GABAPENTIN 300 MG CAP PO SCH (09:00)
[2023-10-30] MEDS: NA CHLORIDE 0.9% 1,000 ML IV ONE (09:25)
[2023-10-30] MEDS: GABAPENTIN 300 MG CAP PO SCH (09:26)
--- NOTE | 2023-10-30 09:31 | P.PN ---
Date of Service: 10/30/23 Subjective: Still with diarrhea overnight BP still soft ROS: 10 point ROS as noted above, otherwise negative Physical exam GEN: Alert, oriented, NAD HEENT: Normal conjunctiva, sclera anicteric CV: Regular rate and rhythm, no edema Pulm: Nonlabored respirations on room air ABD: Soft, nontender, nondistended MSK: No joint tenderness Integumentary: No rashes Neuro: Normal speech, normal affect Vitals reviewed Assessment: CLARA Diarrhea Hypovolemia Leukocytosis Alveolitis Atrial fibrillation on chronic anticoagulation Chronic pain with pain pump in place Opioid-induced constipation Cirrhosis of liver-nonalcoholic Hypertension Plan: CLARA Diarrhea Hypovolemia Likely secondary to Dulcolax/mycophenolate Diarrhea seems to be slowing down but still with multiple episodes overnight Continue IV fluids, hold laxatives at this time Clinical diet advance as tolerated Labs significantly improved Leukocytosis Alveolitis CT chest findings with possible alveolitis although findings appear chronic Doubt acute infectious process Empiric antibiotics with Levaquin given leukocytosis although this is likely related hemoconcentration/reactive Blood cultures/UA/Lactate ordered Atrial fibrillation on chronic anticoagulation Continue Eliquis Hold metoprolol/antihypertensives given borderline low blood pressures Resume home medications when appropriate Chronic pain with pain pump in place Notedfollows pain management Opioid-induced constipation Currently with diarrhea, hold Linzess/Dulcolax/MiraLAX Cirrhosis of liver-nonalcoholic Supportive care, monitor LFTs daily Hypertension Blood pressure soft currently, hold oral antihypertensive agents DVT PPX: Continue Eliquis Code status: Full Discharge Plan: Home Plan to discharge in: 48 hours Time Spent Managing Pts Care (In Minutes): 35
[2023-10-30] MEDS: POTASSIUM 25 MEQ EFFERV TAB PO ONE (12:06)
--- NOTE | 2023-10-30 14:05 | EKG ---
Test Date: 2023-10-30 Test Time: 03:29:19 Infection Control Manager: [place] MEASUREMENT RESULTS: Intervals: Rate: 82 ME: 156 QRSD: 84 QT: 626 QTc: 731 [place]: P: 36 ME: 156 QRS: 59 T: 41 INTERPRETIVE STATEMENTS: Normal sinus rhythm T wave abnormality, consider anterior ischemia Prolonged QT Abnormal ECG Compared to ECG 07/26/2023 19:52:23 T-wave abnormality now present Possible ischemia now present Prolonged QT interval now present Sinus bradycardia no longer present Electronically Signed On 10-30-23 14:04:31 CDT by Michael Chávez
--- NOTE | 2023-10-30 14:07 | EKG ---
Test Date: 2023-10-29 Test Time: 14:15:25 Electric Engine Mechanic: REHAN MEASUREMENT RESULTS: Intervals: Rate: 74 NE: 148 QRSD: 94 QT: 406 QTc: 450 [place]: P: 43 NE: 148 QRS: 32 T: 52 INTERPRETIVE STATEMENTS: Normal sinus rhythm Inferior infarct, age undetermined Anterolateral infarct, age undetermined Abnormal ECG Compared to ECG 07/26/2023 19:52:23 Myocardial infarct finding now present Sinus bradycardia no longer present Electronically Signed On 10-30-23 14:05:00 CDT by Michael Chávez
[2023-10-30] MEDS ORDERED: Levofloxacin 750mg IV 750 MG/150 ML BAG IV SCH (17:00)
--- NOTE | 2023-10-30 19:47 | P.PN ---
Date of Service: 10/30/23 pt c/o of intense pain , worse since last pm , pattern similar to yesterday , lower eabdomianl raditing to lower back , hx of pain pump insitu with steady rate ct abdomen from yesterday reviewed add morphine prn to regime no urgent need for further workup now family at bedside d/w
[2023-10-30 20:06] LABS: Sqamous Epithelial <5 /HPF (None Seen); Urine Bacteria <20 /HPF (<20); Urine Bilirubin NEGATIVE (Negative); Urine Blood 1+ (Negative); Urine Clarity Clear (Clear); Urine Color Light-Yellow (Yellow); Urine Culture Reflex Order NOT NEEDED; Urine Glucose NEGATIVE (Negative); Urine Ketones NEGATIVE (Negative); Urine Microscopic Reflex YN ORDER UMIC; Urine Mucus Slight /HPF (None Seen); Urine Nitrite NEGATIVE (Negative); Urine Protein NEGATIVE (Negative); Urine RBC <5 /HPF (None Seen); Urine Urobilinogen Normal (Normal); Urine WBC <5 /HPF (<5)
[2023-10-30] MEDS: MORPHINE 2 MG/ML SYR IV PRN (20:22)
[2023-10-30] MEDS ORDERED: ramipriL 5 MG CAP PO SCH (21:00)
[2023-10-31] MEDS: MORPHINE 4 MG/ML SYR IV PRN (03:54)
[2023-10-31 07:24] LABS: Albumin 2.4 g/dL (3.4-5.0); Albumin/Globulin Ratio 0.7 (1.1-1.8); Anion Gap 7.4 mEq/L (5.0-15.0); Bilirubin Total 1.1 mg/dL (0.2-1.0); Globulin 3.3 g/dL (2.3-3.5); Potassium 3.4 mEq/L (3.5-5.1); Protein, Total 5.7 g/dL (6.4-8.2)
[2023-10-31 08:35] LABS: Absolute Eosinophils 0.1 K/uL (0-0.5); Absolute Lymphocytes (CBC) 1.7 K/uL (0.7-4.9); Absolute Monocytes 0.6 K/uL (0.1-1.3); Absolute Neutrophil 3.7 K/uL (1.8-8.0); Basophils % 0.6 % (0-1.3); Eosinophils % 2.2 % (0-4.4); Hematocrit 32.1 % (36.0-45.0); Lymphocytes % 27.6 % (15.3-44.8); MCH 32.9 pg (27.0-35.0); MCHC 34.3 g/dL (32.0-36.0); MCV 95.8 fL (80-100); MPV 9.7 fL (7.6-11.3); Monocytes % 9.6 % (3.3-12.3); Nucleated Red Blood Cells % 0.1 % (0-0); Platelets 102 thou/uL (152-406); RBC Red Blood Cell Count 3.34 M/uL (3.86-4.86); Red Cell Distribution Width 13.7 % (12.1-15.2)
[2023-10-31] MEDS: HYDROMORPHONE HCL 0.5 MG/0.5 ML INJ IV PRN (09:24)
[2023-10-31] MEDS: POTASSIUM 25 MEQ EFFERV TAB PO ONE (11:07)
--- NOTE | 2023-10-31 11:50 | RAD REPORT ---
EXAM DESCRIPTION: CT - Abdomen Pelvis W Contrast - 10/31/2023 10:31 am CLINICAL HISTORY: Repeat-new/worsening LLQ/L flank pain/tenderness COMPARISON: Abdomen Pelvis W Contrast dated 04/22/2019; Abdomen Pelvis W Contrast dated 04/12/20 19; Abdomen Pelvis W Contrast dated 12/03/2018; Chest Abd Pelvis Wo Con dated 10/29/2023 TECHNIQUE: Thin cut axial CT imaging of the abdomen and pelvis was performed following intravenous a dministration of 100 mL Isovue 300. Multiplanar reformats were generated and reviewed. All CT scans are performed using dose optimization technique as appropriate and may include automated exposure control or mA/KV adjustment according to patient size. FINDINGS: No suspicious findings in the lung bases. Elevation of the left hemidiaphragm and bibasila r reticular opacities again seen, may relate to scarring The liver shows nodular contour suggesting cirrhosis. Spleen, and pancreas show no suspicious finding s. Gallbladder was surgically removed. Stable mild prominence of the common bile duct, may relate to reservoir effect. Symmetric renal function is seen with no hydronephrosis or suspicious renal mass. Mild fluid distention with short-segment air- fluid levels, of the distal small bowel, with a gradual transition to nondistended ileum in the right lower quadrant. Segmental wall thickening and adjacent fat stranding along the ascending colon, splenic flexure, and proximal to mid descending colon. No f ree air, or fluid collections. Layering free pelvic fluid. No hernia, mass or bulky lymphadenopathy. The urinary bladder is without significant finding. No suspicious bony findings. IMPRESSION: Mild distal small bowel fluid distention with short-segment air-fluid levels and gradual transition to nondistended ileum, suggesting ileus rather than obstruction. Segments of wall thickening and inflammatory changes along the ascending colon, splenic flexure, and proximal to mid descending colon, suggesting segmental infectious or inflammatory colitis. Stigmata of cirrhosis. Mild free pelvic ascites.
[2023-10-31] MEDS: METRONIDAZOLE 500mg IVPB 500 MG/100 ML BAG IV SCH (12:41)
--- NOTE | 2023-10-31 13:19 | P.PN ---
Date of Service: 10/31/23 Subjective: Still with diarrhea overnight BP still soft ROS: 10 point ROS as noted above, otherwise negative Physical exam GEN: Alert, oriented, NAD HEENT: Normal conjunctiva, sclera anicteric CV: Regular rate and rhythm, no edema Pulm: Nonlabored respirations on room air ABD: Soft, moderate lower abdominal tenderness, worse on the left, nondistended MSK: No joint tenderness Integumentary: No rashes Neuro: Normal speech, normal affect Vitals reviewed Assessment: CLARA Diarrhea Hypovolemia Leukocytosis Alveolitis Atrial fibrillation on chronic anticoagulation Chronic pain with pain pump in place Opioid-induced constipation Cirrhosis of liver-nonalcoholic Hypertension Plan: Colitis, Ileus Patient with worsening abdominal pain overnight CT obtained today shows ileus, colitis Added antibiotics/Flagyl N.p.o. for now aside from sips of water/ice chips and meds CLARA Diarrhea Hypovolemia Likely secondary to Dulcolax/mycophenolate Diarrhea seems to be slowing down Continue IV fluids, hold laxatives at this time Labs significantly improved Leukocytosis Alveolitis CT chest findings with possible alveolitis although findings appear chronic Empiric antibiotics with Levaquin given leukocytosis although this is likely related hemoconcentration/reactive Blood cultures with no growth in 24 hours, UA negative for UTI Leukocytosis resolved, monitor labs daily Atrial fibrillation on chronic anticoagulation Continue Eliquis Hold metoprolol/antihypertensives given borderline low blood pressures Resume home medications when appropriate Chronic pain with pain pump in place Notedfollows pain management Opioid-induced constipation Currently with diarrhea, hold Linzess/Dulcolax/MiraLAX Cirrhosis of liver-nonalcoholic Supportive care, monitor LFTs daily Hypertension Blood pressure soft currently, hold oral antihypertensive agents DVT PPX: Continue Eliquis Code status: Full Discharge Plan: Home Plan to discharge in: 48 hours Time Spent Managing Pts Care (In Minutes): 35
[2023-10-31] MEDS: KCL 20 MEQ/100 mL IVPB 20 MEQ/100 ML BAG IV ONE (14:01)
[2023-10-31] MEDS ORDERED: MONTELUKAST 10 MG TAB PO PRN (14:55)
[2023-10-31] MEDS: Levofloxacin 750mg IV 750 MG/150 ML BAG IV SCH (16:36)
[2023-11-01] MEDS: LEVOTHYROXINE SOD 0.125 MG TAB PO SCH (05:47)
[2023-11-01 08:13] LABS: Absolute Eosinophils 0.2 K/uL (0-0.5); Absolute Lymphocytes (CBC) 0.9 K/uL (0.7-4.9); Absolute Monocytes 0.4 K/uL (0.1-1.3); Absolute Neutrophil 2.4 K/uL (1.8-8.0); Basophils % 0.4 % (0-1.3); Hematocrit 33.3 % (36.0-45.0); Hemoglobin 11.2 g/dL (12.0-15.0); Lymphocytes % 23.9 % (15.3-44.8); MCHC 33.6 g/dL (32.0-36.0); MCV 95.2 fL (80-100); MPV 9.5 fL (7.6-11.3); Monocytes % 9.4 % (3.3-12.3); Neutrophils % 62.3 % (41.7-73.7); Nucleated Red Blood Cells % 0.3 % (0-0); Platelets 92 thou/uL (152-406); Red Cell Distribution Width 13.6 % (12.1-15.2)
[2023-11-01 08:18] LABS: Albumin 2.3 g/dL (3.4-5.0); Albumin/Globulin Ratio 0.7 (1.1-1.8); Anion Gap 7.2 mEq/L (5.0-15.0); Bilirubin Total 1.1 mg/dL (0.2-1.0); Globulin 3.1 g/dL (2.3-3.5); Magnesium 1.8 mg/dL (1.6-2.4); Potassium 3.2 mEq/L (3.5-5.1); Protein, Total 5.4 g/dL (6.4-8.2)
[2023-11-01] MEDS: PROPRANOLOL HCL 60 MG SA CAP PO SCH (08:53)
[2023-11-01 08:59] LABS: Blood Morphology Comment NOT SEEN (NOT SEEN); Platelet Estimate DECR; White Blood Cell Scan OK (OK)
[2023-11-01] MEDS: METOPROLOL TARTRATE 5 MG/5 ML INJ IV STA (09:58)
[2023-11-01] MEDS: AMIODARONE HCL 150 MG in D5W 100 ML IV ONE (10:13)
[2023-11-01] MEDS: AMIODARONE HCL 900 MG in Dextrose 5%-Water 482 ML IV SCH (10:13)
[2023-11-01] MEDS ORDERED: POTASSIUM CL 40 MEQ in NA CHLORIDE 0.9% 500 ML IV SCH (10:15)
[2023-11-01] MEDS: KCL 20 MEQ/100 mL IVPB 100 ML IV SCH (10:28)
--- NOTE | 2023-11-01 10:30 | P.PN ---
Date of Service: 11/01/23 Subjective: Abdominal pain improved from yesterday Went in to Afib RVR rate 160-190 this morning ROS: 10 point ROS as noted above, otherwise negative Physical exam GEN: Alert, oriented, NAD HEENT: Normal conjunctiva, sclera anicteric CV: Irregular- afib, no edema Pulm: Nonlabored respirations on room air ABD: Soft, mild lower abdominal tenderness, worse on the left, nondistended MSK: No joint tenderness Integumentary: No rashes Neuro: Normal speech, normal affect Vitals reviewed Assessment: CLARA Diarrhea Hypovolemia Leukocytosis Alveolitis Atrial fibrillation on chronic anticoagulation Chronic pain with pain pump in place Opioid-induced constipation Cirrhosis of liver-nonalcoholic Hypertension Plan: Colitis, Ileus Pain improving, had soft BM CT obtained 10/30 shows ileus, colitis Added antibiotics/Flagyl Will try to advance to clear liquids CLARA Diarrhea Hypovolemia Likely secondary to Dulcolax/mycophenolate Diarrhea improved Continue IV fluids, hold laxatives at this time Labs continue to improve/are stable Leukocytosis Alveolitis CT chest findings with possible alveolitis although findings appear chronic UA negative for UTI Leukocytosis resolved, monitor labs daily Atrial fibrillation on chronic anticoagulation Continue Eliquis was on propranolol developed Afib rvr AM 10/31 Started on Amio by cardiology Continue to monitor on tele Chronic pain with pain pump in place Notedfollows pain management Opioid-induced constipation Currently with diarrhea, hold Linzess/Dulcolax/MiraLAX Cirrhosis of liver-nonalcoholic Supportive care, monitor LFTs daily Hypertension Home meds to be resumed DVT PPX: Continue Eliquis Code status: Full Discharge Plan: Home Plan to discharge in: 48 hours Time Spent Managing Pts Care (In Minutes): 35 <Hung Weston - Last Filed: 11/01/23 10:27> DOS: 11/01/23 Patient seen and examined on rounds this morning with EMERGENCY MEDICINE PHYSICIAN ASSISTANT Enrico. I performed a substantial part of the MDM during this patient's care today as noted above in the plan of care. I agree with plan of care as noted above with the following additions / corrections: noted to be in rapid afib with rvr on tele improved with IV lopressor x1 and amio bolus cardio consulted continue amio drip transition to PO tomorrow if improved <Anil Mathis - Last Filed: 11/02/23 20:02>
[2023-11-01] MEDS ORDERED: ERTAPENEM SODIUM 1 GM VIAL IVPB SCH (13:00)
--- NOTE | 2023-11-01 13:09 | P.CNS ---
Date of Consult: 11/01/23 Chief Complaint: CLARA, diarrhea History of Present Illness: Patient with PMH of atrial fibrillation/flutter presented with diarrhea, abdominal pain and vomiting, developed AF w RVR while on the floor, denies having chest pain, no SOB, no syncope. Allergies venom-honey bee [bee venom (honey bee)] Allergy (Intermediate, Verified 07/03/19 07:05) Anaphylaxis ceftriaxone [From Rocephin] Allergy (Mild, Verified 07/04/23 20:03) Itching eszopiclone [From Lunesta] Allergy (Verified 07/03/19 07:05) headache meloxicam [From Mobic] Allergy (Verified 07/03/19 07:05) Unknown rofecoxib [From Vioxx] Allergy (Verified 07/03/19 07:05) Unknown zolpidem [From Ambien] Allergy (Verified 07/03/19 07:05) sleeps too long azithromycin [From Zithromax Z-Dioni] Adverse Reaction (Mild, Verified 07/03/19 07:05) sob/heart racing vomiting cephalexin monohydrate [From Keflex] Adverse Reaction (Mild, Verified 07/03/19 07:05) swelling Penicillins Adverse Reaction (Mild, Verified 07/03/19 07:05) swelling Sulfa (Sulfonamide Antibiotics) [Sulfa(Sulfonamide Antibiotics)] Adverse Reaction (Mild, Verified 07/03/19 07:05) Rash OXY MEDS Allergy (Uncoded 07/03/19 07:05) Unknown steroids Adverse Reaction (Mild, Uncoded 07/03/19 07:05) swelling Home Medications: Gabapentin 600 mg PO TID 04/23/19 Levothyroxine [Synthroid*] 125 mcg PO [id number] 04/23/19 Amitriptyline [Elavil*] 50 mg PO BEDTIME 07/05/23 Furosemide 20 mg PO EVERY 3RD DAY 07/05/23 Linaclotide [Linzess] 290 mg PO DAILY PRN 07/05/23 Montelukast [Singulair*] 10 mg PO BEDTIME PRN 07/05/23 Ramipril [Altace] 10 mg PO BEDTIME 07/05/23 Apixaban [Eliquis] 5 mg PO BID #60 tab 07/27/23 Potassium Chloride 5 mg PO DAILY 07/27/23 Ergocalciferol (Vitamin D2) [Vitamin D2] 1 cap PO DIRECTED 10/29/23 Mycophenolate Mofetil [Cellcept] 1,000 mg PO BID 10/29/23 Propranolol [Inderal LA] 60 mg PO DAILY 10/29/23 - Past Medical/Surgical History Diabetic: No -: HTN -: Hypothyroid -: chronic pain -: slipped disc -: Gi Bleed -: Liver Failure -: Afib -: gallbladder -: , hysterectomy -: appendix -: pain pump R implant - Family History Brother Medical History: Liver disease - Social History Smoking Status: Current every day smoker Alcohol use: No CD- Drugs: No Caffeine use: Yes Place of Residence: Home Review of Systems 10-point ROS is otherwise unremarkable Physical Examination Temp Pulse Resp BP Pulse Ox 98 F 129 H 20 119/80 94 11/01/23 12:00 11/01/23 12:00 11/01/23 12:42 11/01/23 12:00 11/01/23 12:42 General: Alert, In no apparent distress HEENT: Atraumatic, PERRLA, Mucous membr. moist/pink, EOMI, Sclerae nonicteric Neck: Supple, 2+ carotid pulse no bruit, No LAD, Without JVD or thyroid abnormality Respiratory: Clear to auscultation bilaterally, Normal air movement Cardiovascular: Regular rate/rhythm, Normal S1 S2 Gastrointestinal: Normal bowel sounds, No tenderness Musculoskeletal: No tenderness Integumentary: No rashes Neurological: Normal gait, Normal speech, Normal tone, Normal affect Lymphatics: No axilla or inguinal lymphadenopathy - Problems (1) Atrial fibrillation Current Visit: Yes Status: Acute Plan: patient was in RVR, responded well to IV lopressor and Amiodarone push Continue drip with 1 mg/min for 6 hours then 0.5 mg/min for 18 hours start amiodarone 200 mg daily in am continue Eliquis 5 mg po BID Continue propranolol. (patient says she did not respond well to metoprolol last time) (2) Hypertension Current Visit: No Status: Acute Plan: continue propranolol, continue to monitor.
[2023-11-01] MEDS: Meropenem 1,000 MG in NA CHLORIDE 0.9% 100 ML IV SCH (13:57)
[2023-11-01] MEDS: MAGNESIUM SULFATE 1 gm IVPB 1 GM/100 ML BAG IV ONE (17:46)
[2023-11-02 10:02] LABS: Hematocrit 32.2 % (36.0-45.0); Hemoglobin 10.9 g/dL (12.0-15.0); MCH 32.2 pg (27.0-35.0); MCHC 33.7 g/dL (32.0-36.0); MCV 95.6 fL (80-100); MPV 9.8 fL (7.6-11.3); Platelets 94 thou/uL (152-406); RBC Red Blood Cell Count 3.37 M/uL (3.86-4.86); Red Cell Distribution Width 13.5 % (12.1-15.2)
[2023-11-02] MEDS: AMIODARONE HCL 200 MG TAB PO SCH (10:03)
[2023-11-02] MEDS: PROPRANOLOL HCL 60 MG SA CAP PO SCH (10:03)
[2023-11-02 10:22] LABS: Anion Gap 4.6 mEq/L (5.0-15.0); Potassium 3.6 mEq/L (3.5-5.1)
--- NOTE | 2023-11-02 10:47 | P.PN ---
Subjective Date of Service: 11/02/23 Chief Complaint: CLARA, diarrhea Subjective: No new changes (sinus rhythm), No C/O voiced, Tolerating diet, Ambulating, Improving Review of Systems 10-point ROS is otherwise unremarkable Physical Examination - Vital Signs Temperature: 97.4 F Blood Pressure: 125/65 Pulse: 71 Respirations: 16 Pulse Ox (%): 96 - Physical Exam General: Alert, In no apparent distress HEENT: Atraumatic, PERRLA, EOMI Neck: Supple, JVD not distended Respiratory: Clear to auscultation bilaterally, Normal air movement Cardiovascular: Regular rate/rhythm, Normal S1 S2 Gastrointestinal: Normal bowel sounds, No tenderness Musculoskeletal: No tenderness Integumentary: No rashes Neurological: Normal speech, Normal tone, Normal affect Lymphatics: No axilla or inguinal lymphadenopathy - Studies Medications List Reviewed: Yes Assessment And Plan - Current Problems (Diagnosis) (1) Atrial fibrillation Current Visit: Yes Status: Acute Plan: patient was in RVR, responded well to IV lopressor and Amiodarone push and drip started on amiodarone 200 mg daily continue Eliquis 5 mg po BID Continue propranolol. (patient says she did not respond well to metoprolol last time) (2) Hypertension Current Visit: No Status: Acute Plan: continue propranolol, continue to monitor.
[2023-11-02] MEDS: POTASSIUM CL SA 10 MEQ TAB PO ONE (13:28)
--- NOTE | 2023-11-02 14:38 | P.PN ---
Date of Service: 11/02/23 Subjective: Still with abdominal pain passing stool No acute events overnight NSR at this time ROS: 10 point ROS as noted above, otherwise negative Physical exam GEN: Alert, oriented, NAD HEENT: Normal conjunctiva, sclera anicteric CV: Irregular- afib, no edema Pulm: Nonlabored respirations on room air ABD: Soft, mild lower abdominal tenderness, worse on the left, nondistended MSK: No joint tenderness Integumentary: No rashes Neuro: Normal speech, normal affect Vitals reviewed Assessment: CLARA Diarrhea Hypovolemia Leukocytosis Alveolitis Atrial fibrillation on chronic anticoagulation Chronic pain with pain pump in place Opioid-induced constipation Cirrhosis of liver-nonalcoholic Hypertension Plan: Colitis, Ileus Pain improving, had soft BM CT obtained 10/30 shows ileus, colitis Added antibiotics/Merrem Tolerating clear liquids ADAT CLARA Diarrhea Hypovolemia Likely secondary to Dulcolax/mycophenolate Diarrhea improved Continue IV fluids, hold laxatives at this time Labs continue to improve/are stable Leukocytosis Alveolitis CT chest findings with possible alveolitis although findings appear chronic UA negative for UTI Leukocytosis resolved, monitor labs daily Atrial fibrillation on chronic anticoagulation Continue Eliquis Continue propranolol developed Afib rvr AM 10/31 Started on Amio by cardiology-transitioned to oral amio 11/01 Continue to monitor on tele Chronic pain with pain pump in place Notedfollows pain management Opioid-induced constipation Currently with diarrhea, hold Linzess/Dulcolax/MiraLAX Cirrhosis of liver-nonalcoholic Supportive care, monitor LFTs daily Hypertension Home meds to be resumed DVT PPX: Continue Eliquis Code status: Full Discharge Plan: Home Plan to discharge in: 48 hours Time Spent Managing Pts Care (In Minutes): 35 <Hung Weston - Last Filed: 11/02/23 14:36> Patient seen and examined on rounds this morning with COOLER TENDER Enrico. I performed a substantial part of the MDM during this patient's care today as noted above in the plan of care. I agree with plan of care as noted above with the following additions / corrections: converted to sinus rhythm transition to PO amio today CLD this AM and lunch - with increased abd distention / discomfort KUB with distended large intestine pt reports 2 BMs ago - hard and painful small stool last BM was hard small stool with some watery stool reports long h/o OIC - on linzess and takes laxatives as needed also reports h/o slow digestion last CT with ileus given increased discomfort made NPO this afternoon, monitor overnight if improved can slowly advance, possibly restart linzess in AM <Anil Mathis - Last Filed: 11/02/23 20:05>
--- NOTE | 2023-11-02 17:12 | RAD REPORT ---
EXAM DESCRIPTION: RAD - Abdomen 1 View (KUB) - 11/02/2023 4:16 pm CLINICAL HISTORY: abdominal distension/pain COMPARISON: No comparisons TECHNIQUE: Single AP view of the abdomen. FINDINGS: Mild gaseous distention predominantly of large bowel. No air-fluid levels, free air, or pn eumatosis. No suspicious calcifications. No significant bony abnormality. Right flank battery pack, likely related to a pain pump. IMPRESSION: Mild gaseous distention predominantly large bowel, without nonobstructive bowel gas lila radha otherwise.
[2023-11-02] MEDS: ENOXAPARIN 80 MG/0.8 ML SQ SCH (20:14)
[2023-11-02] MEDS: PROMETHAZINE INJ 25 MG/ML AMP IV ONE (23:42)
[2023-11-03 03:19] LABS: Hematocrit 34.3 % (36.0-45.0); Hemoglobin 11.6 g/dL (12.0-15.0); MCH 32.4 pg (27.0-35.0); MCHC 33.9 g/dL (32.0-36.0); MCV 95.5 fL (80-100); MPV 10.5 fL (7.6-11.3); Platelets 103 thou/uL (152-406); RBC Red Blood Cell Count 3.59 M/uL (3.86-4.86); Red Cell Distribution Width 13.5 % (12.1-15.2)
[2023-11-03 03:35] LABS: Albumin 2.6 g/dL (3.4-5.0); Albumin/Globulin Ratio 0.8 (1.1-1.8); Anion Gap 4.4 mEq/L (5.0-15.0); Bilirubin Total 1.2 mg/dL (0.2-1.0); Globulin 3.3 g/dL (2.3-3.5); Potassium 3.4 mEq/L (3.5-5.1); Protein, Total 5.9 g/dL (6.4-8.2)
[2023-11-03] MEDS: KCL 20 MEQ/100 mL IVPB 20 MEQ/100 ML BAG IV SCH (06:12)
--- NOTE | 2023-11-03 12:55 | P.PN ---
Subjective Date of Service: 11/03/23 Chief Complaint: CLARA, diarrhea Subjective: No new changes, No C/O voiced, Tolerating diet, Ambulating, Improving Review of Systems 10-point ROS is otherwise unremarkable Physical Examination - Vital Signs Temperature: 99.2 F Blood Pressure: 133/61 Pulse: 66 Respirations: 18 Pulse Ox (%): 99 - Physical Exam General: Alert, In no apparent distress HEENT: Atraumatic, PERRLA, EOMI Neck: Supple, JVD not distended Respiratory: Clear to auscultation bilaterally, Normal air movement Cardiovascular: Regular rate/rhythm, Normal S1 S2 Gastrointestinal: Normal bowel sounds, No tenderness Musculoskeletal: No tenderness Integumentary: No rashes Neurological: Normal speech, Normal tone, Normal affect Lymphatics: No axilla or inguinal lymphadenopathy - Studies Medications List Reviewed: Yes Assessment And Plan - Current Problems (Diagnosis) (1) Atrial fibrillation Current Visit: Yes Status: Acute Plan: patient was in RVR, responded well to IV lopressor and Amiodarone push and drip started on amiodarone 200 mg daily continue Eliquis 5 mg po BID Continue propranolol. (patient says she did not respond well to metoprolol last time) (2) Hypertension Current Visit: No Status: Acute Plan: continue propranolol, continue to monitor. Cardiology will sign off, please call with any questions.
--- NOTE | 2023-11-03 14:09 | P.PN ---
Date of Service: 11/03/23 Subjective: Abdominal distension/pain yesterday + flatus today, a little better per patient ROS: 10 point ROS as noted above, otherwise negative Physical exam GEN: Alert, oriented, NAD HEENT: Normal conjunctiva, sclera anicteric CV: Irregular- afib, no edema Pulm: Nonlabored respirations on room air ABD: Soft, mild lower abdominal tenderness, worse on the left, moderate distension MSK: No joint tenderness Integumentary: No rashes Neuro: Normal speech, normal affect Vitals reviewed Assessment: CLARA Diarrhea Hypovolemia Leukocytosis Alveolitis Atrial fibrillation on chronic anticoagulation Chronic pain with pain pump in place Opioid-induced constipation Cirrhosis of liver-nonalcoholic Hypertension Plan: Colitis, Ileus Pain improving, had soft BM CT obtained 10/30 shows ileus, colitis Added antibiotics/Merrem given multiple drug allergies and prolonged QT Made NPO yesterday evening as she was having abdominal distension and pain KUB with gaseous distension large intestine, non obstructive pattern Consider adding linzess back/advancing diet this evening if improving CLARA Diarrhea Hypovolemia Likely secondary to Dulcolax/mycophenolate? Diarrhea improved-now with some constipation Continue IV fluids Labs continue to improve/are stable Leukocytosis Alveolitis CT chest findings with possible alveolitis although findings appear chronic UA negative for UTI Leukocytosis resolved, monitor labs daily Atrial fibrillation on chronic anticoagulation Continue Eliquis-temporarily switched to lovenox given concern for abd distension/possible worsening Continue propranolol developed Afib rvr AM 10/31 Started on Amio by cardiology-transitioned to oral amio 11/01 Continue to monitor on tele Chronic pain with pain pump in place Notedfollows pain management Opioid-induced constipation Currently with diarrhea, hold Linzess/Dulcolax/MiraLAX Cirrhosis of liver-nonalcoholic Supportive care, monitor LFTs daily Hypertension Home meds to be resumed DVT PPX: Therapeutic Lovenox Code status: Full Discharge Plan: Home Plan to discharge in: 48 hours Time Spent Managing Pts Care (In Minutes): 35
[2023-11-03] MEDS: NALOXEGOL OXALATE 12.5 MG TABLET PO ONE (15:54)
[2023-11-04 03:29] LABS: Hematocrit 34.5 % (36.0-45.0); Hemoglobin 11.6 g/dL (12.0-15.0); MCH 32.1 pg (27.0-35.0); MCHC 33.5 g/dL (32.0-36.0); MCV 95.7 fL (80-100); MPV 9.5 fL (7.6-11.3); Platelets 105 thou/uL (152-406); RBC Red Blood Cell Count 3.61 M/uL (3.86-4.86); Red Cell Distribution Width 13.8 % (12.1-15.2)
[2023-11-04 03:50] LABS: ALT/SGPT 20 U/L (13-56); AST/SGOT 22 U/L (15-37); Albumin 2.4 g/dL (3.4-5.0); Albumin/Globulin Ratio 0.7 (1.1-1.8); Alkaline Phosphatase 64 U/L (45-117); Anion Gap 8.4 mEq/L (5.0-15.0); Bicarbonate 26 mEq/L (21-32); Bilirubin Total 0.9 mg/dL (0.2-1.0); Globulin 3.3 g/dL (2.3-3.5); Glomerular Filtration Rate 104 ml/min (=/>90); Glucose Level 68 mg/dL (74-106); Potassium 3.4 mEq/L (3.5-5.1); Protein, Total 5.7 g/dL (6.4-8.2); Sodium Level 138 mEq/L (136-145)
[2023-11-04 03:51] LABS: BUN Blood Urea Nitrogen < 3 mg/dL (7-18)
[2023-11-04] MEDS: NA CHLORIDE 0.9% 1,000 ML IV SCH (06:06)
[2023-11-04 06:20] LABS: Magnesium 1.8 mg/dL (1.6-2.4)
[2023-11-04] MEDS: POTASSIUM CL SA 10 MEQ TAB PO ONE ×3 (07:23→21:00)
[2023-11-04] MEDS: MAGNESIUM SULFATE 1 gm IVPB 1 GM/100 ML BAG IV ONE (08:17)
[2023-11-04] MEDS: NALOXEGOL OXALATE 12.5 MG TABLET PO SCH (08:18)
--- NOTE | 2023-11-04 11:19 | P.PN ---
Date of Service: 11/04/23 Subjective: Had BM last night and this morning Feeling much better advancing diet ROS: 10 point ROS as noted above, otherwise negative Physical exam GEN: Alert, oriented, NAD HEENT: Normal conjunctiva, sclera anicteric CV: Irregular- afib, no edema Pulm: Nonlabored respirations on room air ABD: Soft, mild lower abdominal tenderness, worse on the left, mild distension MSK: No joint tenderness Integumentary: No rashes Neuro: Normal speech, normal affect Vitals reviewed Assessment: CLARA Diarrhea Hypovolemia Leukocytosis Alveolitis Atrial fibrillation on chronic anticoagulation Chronic pain with pain pump in place Opioid-induced constipation Cirrhosis of liver-nonalcoholic Hypertension Plan: Colitis, Ileus CT obtained 10/30 shows ileus, colitis Added antibiotics/Merrem given multiple drug allergies and prolonged QT Had BM 11/02, 11/03 and feeling much better ADAT, daily movantiq-takes linzess at home but unavail. here CLARA Diarrhea Hypovolemia Likely secondary to Dulcolax/mycophenolate? Diarrhea improved-now with some constipation Labs continue to improve/are stable IVF dc'd, renal function stable Leukocytosis Alveolitis CT chest findings with possible alveolitis although findings appear chronic UA negative for UTI Leukocytosis resolved, monitor labs daily Atrial fibrillation on chronic anticoagulation Continue Eliquis Continue propranolol developed Afib rvr AM 10/31 Started on Amio by cardiology-transitioned to oral amio 11/01 Continue to monitor on tele Chronic pain with pain pump in place Notedfollows pain management Opioid-induced constipation continue with movantiq Cirrhosis of liver-nonalcoholic Supportive care, monitor LFTs daily Hypertension Home meds to be resumed DVT PPX:eliquis Code status: Full Discharge Plan: Home Plan to discharge in: 48 hours Time Spent Managing Pts Care (In Minutes): 35
--- NOTE | 2023-11-04 11:52 | EKG ---
Test Date: 2023-11-01 Test Time: 13:37:26 Railway Signalling Engineer: ANANT MEASUREMENT RESULTS: Intervals: Rate: 58 WA: 154 QRSD: 78 QT: 458 QTc: 449 [place]: P: 44 WA: 154 QRS: 73 T: 40 INTERPRETIVE STATEMENTS: Sinus bradycardia Inferior-posterior infarct, age undetermined Abnormal ECG Compared to ECG 11/01/2023 10:14:45 Atrial fibrillation no longer present ST (T wave) deviation no longer present Possible ischemia no longer present Myocardial infarct finding still present Electronically Signed On 11-04-23 11:49:22 CDT by Jonathan Kinney
--- NOTE | 2023-11-04 11:53 | EKG ---
Test Date: 2023-11-01 Test Time: 10:14:45 Postpartum Nurse: JUANJO MEASUREMENT RESULTS: Intervals: Rate: 158 RI: QRSD: 72 QT: 300 QTc: 486 [place]: P: RI: QRS: 66 T: -55 INTERPRETIVE STATEMENTS: Atrial fibrillation with rapid ventricular response Inferior-posterior infarct, age undetermined ST & T wave abnormality, consider lateral ischemia or digitalis effect Abnormal ECG Compared to ECG 10/30/2023 03:29:19 Myocardial infarct finding now present ST (T wave) deviation now present Sinus rhythm no longer present T-wave abnormality no longer present Prolonged QT interval no longer present Possible ischemia still present Electronically Signed On 11-04-23 11:51:04 CDT by Jonathan Kinney
[2023-11-04] MEDS: APIXABAN 5 MG TABLET PO SCH (19:59)
[2023-11-05 03:52] LABS: Hematocrit 32.9 % (36.0-45.0); Hemoglobin 11.4 g/dL (12.0-15.0); MCH 32.8 pg (27.0-35.0); MCHC 34.5 g/dL (32.0-36.0); MPV 10.2 fL (7.6-11.3); Platelets 115 thou/uL (152-406); RBC Red Blood Cell Count 3.47 M/uL (3.86-4.86); Red Cell Distribution Width 13.6 % (12.1-15.2)
[2023-11-05 04:22] LABS: Albumin 2.4 g/dL (3.4-5.0); Albumin/Globulin Ratio 0.7 (1.1-1.8); Anion Gap 4.5 mEq/L (5.0-15.0); Bilirubin Total 0.6 mg/dL (0.2-1.0); Globulin 3.4 g/dL (2.3-3.5); Magnesium 2.1 mg/dL (1.6-2.4); Potassium 3.5 mEq/L (3.5-5.1); Protein, Total 5.8 g/dL (6.4-8.2)
[2023-11-05] MEDS: POTASSIUM CL SA 10 MEQ TAB PO ONE (08:06)
[2023-11-05 08:11] VITALS: BP 125/58
[2023-11-05 08:32] VITALS: TEMP 97
[2023-11-05 10:13] VITALS: O2SAT 94
--- NOTE | 2023-11-05 10:53 | P.DS ---
Admission Date: 10/30/23 Discharge Date: 11/05/23 Disposition: ROUTINE DISCHARGE Discharge Condition: GOOD Reason for Admission: CLARA, diarrhea Consultations: Cardiology- Dr. Kinney Brief History of Present Illness: 63-year-old female with history of atrial flutter on anticoagulation, nonalcoholic cirrhosis of the liver, previous upper GI bleed, hypertension, hypothyroidism, chronic pain presents to the emergency department with chief complaint of near syncope, fall, diarrhea. She reports that she deals with chronic constipation as she has a fentanyl pump in place for her chronic back pain, she typically takes Linzess but her prescription had run out and she did not want to get constipated so she took 2 Dulcolax at home on Monday. Around 10 AM this morning she started to have watery diarrhea, she reports between 5 and 10 episodes of watery diarrhea associated with abdominal cramping and nausea, she also 3 episodes of vomiting. She was evaluated in the emergency department and her labs are significant for white blood cell count of 20.6 hemoglobin 16.5 hematocrit 50.2 creatinine 1.51 GFR 38 magnesium 2.6 T. bili 1.[address] chest abdomen pelvis with IV contrast was performed which revealed mild to moderate chronic appearing interstitial lung opacities. Hospital Course: Assessment: CLARA Diarrhea Hypovolemia Leukocytosis Alveolitis Atrial fibrillation on chronic anticoagulation Chronic pain with pain pump in place Opioid-induced constipation Cirrhosis of liver-nonalcoholic Hypertension Patient was admitted to the hospital initially for abdominal cramping, diarrhea. Prior to her hospitalization the day before she had taken 2 docusate as she had been out of her Linzess which she usually takes for opioid-induced constipation. Her diarrhea improved but her hospitalization was complicated with the development of an ileus, colitis for which she was treated with IV antibiotics and n.p.o. status. She was started on Movantik as she had been out of her Linzess and did not have that available at the hospital and had significant proved in her symptoms. She has tolerated full liquids and soft diet since yesterday, passing gas abdomen significant less distended and had 2 bowel movements. She is stable for discharge at this time and follow-up outpatient with her PCP, GI, cardiology. Her hospitalization was also complicated with A-fib RVR, she does have a history of atrial fibrillation and is on propranolol and Eliquis at home. She had to be given IV amiodarone for her rapid A-fib, she was then transition to oral amiodarone which she will be prescribed at discharge. Take it slow with your diet focusing primarily on fluids, soft diet and advance slowly New prescriptions: Movantik 25 mg by mouth daily as needed for opioid-induced constipation-okay to take Linzess if you can get that instead Flagyl 5 mg 3 times daily for 5 days-antibiotic for colitis Amiodarone 200 mg by mouth once daily Please follow-up with your primary care doctor [address] Kinneycardiology [address] Navarro as previously scheduled Vital Signs/Physical Exam: Temp Pulse Resp BP Pulse Ox 97.0 F 57 16 125/58 L 94 11/05/23 08:00 11/05/23 08:07 11/05/23 08:00 11/05/23 08:07 11/05/23 08:00 General: Alert, In no apparent distress, Oriented x3 HEENT: Atraumatic, PERRLA Neck: Supple, JVD not distended Respiratory: Clear to auscultation bilaterally, Normal air movement Cardiovascular: Regular rate/rhythm, Normal S1 S2 Gastrointestinal: Normal bowel sounds, No tenderness Musculoskeletal: No tenderness Integumentary: No rashes Neurological: Normal speech, Normal tone, Normal affect Laboratory Data at Discharge: WBC 3.50 thou/uL (4.3-10.9) L 11/05/23 03:06 Hgb 11.4 g/dL (12.0-15.0) L 11/05/23 03:06 Hct 32.9 % (36.0-45.0) L 11/05/23 03:06 Plt Count 115 thou/uL (152-406) L 11/05/23 03:06 PT 12.6 SECONDS (9.5-12.5) H 10/29/23 14:25 INR 1.15 10/29/23 14:25 APTT 22.4 SECONDS (24.3-36.9) L 10/29/23 14:25 Sodium 136 mEq/L (136-145) 11/05/23 03:06 Potassium 3.5 mEq/L (3.5-5.1) 11/05/23 03:06 BUN 3 mg/dL (7-18) L 11/05/23 03:06 Creatinine 0.56 mg/dL (0.55-1.02) 11/05/23 03:06 Glucose 135 mg/dL (74-106) H 11/05/23 03:06 Magnesium 2.1 mg/dL (1.6-2.4) 11/05/23 03:06 Total Bilirubin 0.6 mg/dL (0.2-1.0) 11/05/23 03:06 AST 22 U/L (15-37) 11/05/23 03:06 ALT 20 U/L (13-56) 11/05/23 03:06 Alkaline Phosphatase 66 U/L (45-117) 11/05/23 03:06 Home Medications: Gabapentin 600 mg PO TID 04/23/19 Levothyroxine [Synthroid*] 125 mcg PO [id number] 04/23/19 Amitriptyline [Elavil*] 50 mg PO BEDTIME 07/05/23 Furosemide 20 mg PO EVERY 3RD DAY 07/05/23 Montelukast [Singulair*] 10 mg PO BEDTIME PRN 07/05/23 Ramipril [Altace] 10 mg PO BEDTIME 07/05/23 Apixaban [Eliquis] 5 mg PO BID #60 tab 07/27/23 Potassium Chloride 5 mg PO DAILY 07/27/23 Ergocalciferol (Vitamin D2) [Vitamin D2] 1 cap PO DIRECTED 10/29/23 Mycophenolate Mofetil [Cellcept] 1,000 mg PO BID 10/29/23 Propranolol [Inderal LA*] 60 mg PO DAILY 10/29/23 Amiodarone HCl [Cordarone*] 200 mg PO DAILY #30 tab 11/05/23 Naloxegol Oxalate [Movantik] 25 mg PO DAILY #30 tab 11/05/23 metroNIDAZOLE [Flagyl] 500 mg PO Q8H 5 Days #15 tab 11/05/23 New Medications: Amiodarone HCl [Cordarone*] 200 mg PO DAILY #30 tab metroNIDAZOLE [Flagyl] 500 mg PO Q8H 5 Days #15 tab Naloxegol Oxalate [Movantik] 25 mg PO DAILY #30 tab Physician Discharge Instructions: Patient was admitted to the hospital initially for abdominal cramping, diarrhea. Prior to her hospitalization the day before she had taken 2 docusate as she had been out of her Linzess which she usually takes for opioid-induced consti pation. Her diarrhea improved but her hospitalization was complicated with the development of an ileus, colitis for which she was treated with IV antibiotics and n.p.o. status. She was started on Movantik as she had been out of her Linzess and did not have that available at the hospital and had significant proved in her symptoms. She has tolerated full liquids and soft diet since yesterday, passing gas abdomen significant less distended and had 2 bowel movements. She is stable for discharge at this time and follow-up outpatient with her PCP, GI, cardiology. Her hospitalization was also complicated with A-fib RVR, she does have a history of atrial fibrillation and is on propranolol and Eliquis at home. She had to be given IV amiodarone for her rapid A-fib, she was then transition to oral amiodarone which she will be prescribed at discharge. Take it slow with your diet focusing primarily on fluids, soft diet and advance slowly New prescriptions: Movantik 25 mg by mouth daily as needed for opioid-induced constipation-okay to take Linzess if you can get that instead Flagyl 5 mg 3 times daily for 5 days-antibiotic for colitis Amiodarone 200 mg by mouth once daily Please follow-up with your primary care doctor [address] Kinneycardiology [address] Navarro as previously scheduled Diet: soft Activity: Ad esther Followup: Effie Azevedo MD [Primary Care Provider] - 1-2 Weeks Jonathan Kinney MD [ACTIVE - CAN ADMIT] - Riley Lacy MD [ASSOCIATE-ACTIVE - CAN ADMIT] - Time spent managing pt's care (in minutes): 35
== END 2023-11-05 09:48 | disposition home or self-care (01) | DRG 683 ==
LOC: ER 13:35 → ERHOLD 17:17 → 2ND 18:18 → OBSVTOIN 10-30 08:23
PROVIDERS: ADMIT Internal Medicine Sleep Medicine; ATTEND Hospitalist
DX: N17.9 Acute kidney failure, unspecified (principal); I48.92 Unspecified atrial flutter; K56.7 Ileus, unspecified; K52.1 Toxic gastroenteritis and colitis; E78.00 Pure hypercholesterolemia, unspecified; I48.91 Unspecified atrial fibrillation; I10 Essential (primary) hypertension; E03.9 Hypothyroidism, unspecified; E86.1 Hypovolemia; K74.60 Unspecified cirrhosis of liver; K52.9 Noninfective gastroenteritis and colitis, unspecified; K59.03 Drug induced constipation; D72.829 Elevated white blood cell count, unspecified; T47.2X5A Adverse effect of stimulant laxatives, initial encounter; T40.2X5A Adverse effect of other opioids, initial encounter; R94.31 Abnormal electrocardiogram [ECG] [EKG]; Z88.1 Allergy status to other antibiotic agents; Z88.5 Allergy status to narcotic agent; Z88.0 Allergy status to penicillin; Z88.2 Allergy status to sulfonamides; Z88.8 Allergy status to other drugs, medicaments and biological substances; Z79.01 Long term (current) use of anticoagulants; Z91.030 Bee allergy status; Z79.890 Hormone replacement therapy; Z79.899 Other long term (current) drug therapy; Z87.891 Personal history of nicotine dependence; Z90.710 Acquired absence of both cervix and uterus
CPT/HCPCS: 36415; 70450; 71045; 71250; 74018; 74176; 74177; 80048; 80053; 80076; 81001; 82140; 82533; 83605; 83735; 84132; 84439; 84443; 84484; 85025; 85027; 85610; 85730; 87040; 87045; 87046; 87205; 93005; 96361; 96365; 96366; 96372; 96375; 97116; 97161; 97530; 99285; C9113; G0378; J0282; J0500; J1170; J2185; J2270; J2405; J2550; J3475; J3480; J7030; J7060; Q9967

== ENCOUNTER 2024-05-21 11:08 | Emergency (ER) | payer OTHER ==
--- NOTE | 2024-05-21 12:45 | RAD REPORT ---
Procedure: Chest Single View HISTORY: Cough COMPARISON: November 2023 FINDINGS: Mild to moderate bilateral pulmonary opacities without significant change No significant pleural effusion noted. The heart is mildly enlarged.. IMPRESSION: Mild to moderate bilateral pulmonary opacities appear mostly if not all chronic.
[2024-05-21 12:58] LABS: Absolute Eosinophils 0.4 K/uL (0-0.5); Absolute Lymphocytes (CBC) 1.4 K/uL (0.7-4.9); Absolute Monocytes 0.5 K/uL (0.1-1.3); Basophils % 0.3 % (0-1.3); Eosinophils % 9.5 % (0-4.4); Hematocrit 41.7 % (36.0-45.0); Hemoglobin 13.5 g/dL (12.0-15.0); Lymphocytes % 32.8 % (15.3-44.8); MCH 32.5 pg (27.0-35.0); MCHC 32.4 g/dL (32.0-36.0); MCV 100.4 fL (80-100); MPV 9.8 fL (7.6-11.3); Monocytes % 10.9 % (3.3-12.3); Neutrophils % 46.5 % (41.7-73.7); Platelets 172 thou/uL (152-406); RBC Red Blood Cell Count 4.16 M/uL (3.86-4.86); Red Cell Distribution Width 14.1 % (12.1-15.2)
[2024-05-21 13:20] LABS: Anion Gap 6.5 mEq/L (5.0-15.0); Magnesium 2.3 mg/dL (1.6-2.4); Potassium 4.5 mEq/L (3.5-5.1); Troponin High Sensitivity 53.1 pg/mL (<58.9)
[2024-05-21 14:06] LABS: PT Prothrombin Time 11.4 SECONDS (9.4-12.5); Protime INR 1.02
[2024-05-21 14:19] LABS: Specific Gravity 1.012 (1.005-1.030); Sqamous Epithelial <5 /HPF (None Seen); Urine Bacteria None Seen /HPF (<20); Urine Bilirubin NEGATIVE (Negative); Urine Blood 1+ (Negative); Urine Clarity Clear (Clear); Urine Color Light-Yellow (Yellow); Urine Culture Reflex Order NOT NEEDED; Urine Glucose NEGATIVE (Negative); Urine Ketones NEGATIVE (Negative); Urine Micro Reflex YN NO BILL MICROSCOPIC; Urine Nitrite NEGATIVE (Negative); Urine Protein NEGATIVE (Negative); Urine RBC <5 /HPF (None Seen); Urine Urobilinogen 1+ (Normal); Urine WBC <5 /HPF (<5); Urine pH 7.5 (5.0-7.0)
--- NOTE | 2024-05-21 15:37 | ER ---
Nurse's Notes [facility] Name: Kaitlyn Sesay Age: 64 yrs Sex: Female : 1960 Arrival Date: 05/21/2024 Time: 11:08 Bed 24 Private MD: Diagnosis: Bradycardia, unspecified;Weakness Presentation: 05/21 11:33 Chief complaint: Sent by Dr. Azevedo for abnormal EKG and fatigue x 2 weeks. Sinus Edward hb on EKG. Coronavirus screen: At this time, the client does not indicate any symptoms associated with coronavirus-19. Ebola Screen: No symptoms or risks identified at this time. Initial Sepsis Screen: Does the patient meet any 2 criteria? No. Patient's initial sepsis screen is negative. Does the patient have a suspected source of infection? No. Patient's initial sepsis screen is negative. Risk Assessment: Do you want to hurt yourself or someone else? Patient reports no desire to harm self or others. Onset of symptoms was May 06, 2024. 11:33 Method Of Arrival: Ambulatory hb 11:33 Acuity: VIKRAM 2 hb Historical: - Allergies: 11:35 Azithromycin; hb 11:35 Cephalexin; hb 11:35 Codeine; hb 11:35 Bees; hb 11:35 Keflex; hb 11:35 Oxycodone; hb 11:35 PENICILLINS; hb 11:35 Rocephin; hb 11:35 Rofecoxib; hb 11:35 steroids; hb 11:35 Sulfa (Sulfonamide Antibiotics); hb - PMHx: 11:41 Chronic pain; Hypercholesterolemia; Atrial fibrillation; fentanyl pump; GI Bleed; hb Hypertensive disorder; Thyroid problem; cirrhosis of liver; esophageal varicies; liver failure; - PSHx: 11:41 L5 \T\ S1; hb - Immunization history:: Adult Immunizations up to date. - Infectious Disease History:: Denies. - Social history:: Smoking status: Reported history of juuling and/or vaping. Screenin:40 [facility] ED Fall Risk Assessment (Adult) History of falling in the last 3 months, me1 including since admission No falls in past 3 months (0 pts) Confusion or Disorientation No (0 pts) Intoxicated or Sedated No (0 pts) Impaired Gait No (0 pts) Mobility Assist Device Used No (0 pt) Altered Elimination No (0 pt) Score/Fall Risk Level 0 - 2 = Low Risk Maintained a safe environment, Provided non-skid footwear, Hourly rounding (assess needs \T\ fall precautionary measures) done. Abuse screen: Denies threats or abuse. Nutritional screening: No deficits noted. Tuberculosis screening: No symptoms or risk factors identified. Assessment: 12:40 General: Appears comfortable, well groomed, well developed, well nourished, Behavior is me1 calm, cooperative, appropriate for age, Reports Sent by Dr. Azevedo for abnormal EKG and fatigue x 2 weeks. Sinus Edward on EKG. States she has had some intermittent episodes of dizziness in the past few months. Pain: Denies pain. Neuro: Level of Consciousness is awake, alert, obeys commands, Oriented to person, place, time, situation, Appropriate for age Reports dizziness, at times over the past few months. Cardiovascular: Patient's skin is warm and dry. Cardiovascular: bradycardia. Respiratory: Airway is patent Respiratory effort is even, unlabored, Respiratory pattern is regular, symmetrical. GI: No signs and/or symptoms were reported involving the gastrointestinal system. : No signs and/or symptoms were reported regarding the genitourinary system. EENT: No signs and/or symptoms were reported regarding the EENT system. Derm: Skin is intact, is healthy with good turgor, Skin is pink, warm \T\ dry. Musculoskeletal: No signs and/or symptoms reported regarding the musculoskeletal system. Vital Signs: 11:33 BP 127 / 58; Pulse 45; Resp 16; Temp 97.2; Pulse Ox 100% on R/A; Weight 81.65 kg; hb Height 5 ft. 6 in. ; Pain 0/10; 13:00 BP 142 / 76; Pulse 45; Resp 18; Pulse Ox 100% ; me1 14:00 BP 146 / 65; Pulse 43; Resp 17; Pulse Ox 100% ; me1 14:53 BP 147 / 63; Pulse 43; Resp 18; Pulse Ox 98% ; me1 15:45 BP 128 / 63; Pulse 44; Resp 16; Temp 98.4; Pulse Ox 98% ; me1 11:33 Body Mass Index 29.05 (81.65 kg, 167.64 cm) hb 11:33 Pain Scale: Adult hb ED Course: 11:11 Patient arrived in ED. im 11:12 Randell Mcgrath MD is Attending Physician. ec2 11:35 Triage completed. hb 11:36 Arm band placed on. hb 12:39 XRAY Chest (1 view) In Process Unspecified. EDMS 12:40 Patient has correct armband on for positive identification. Bed in low position. Call me1 light in reach. Side rails up X2. Provided Education on: POC. Verbalized understanding.. Client placed on continuous cardiac and pulse oximetry monitoring. NIBP monitoring applied. quality assurance monitor chassis on. Pulse ox on. NIBP on. 12:40 No provider procedures requiring assistance completed. me1 12:52 Initial lab(s) drawn, by me, sent to lab. Inserted saline lock: 22 gauge in left cc6 antecubital area, using aseptic technique. Blood collected. Flushed with 10 mL NS. 12:52 Basic Metabolic Panel Sent. cc6 12:52 CBC with Diff Sent. cc6 12:52 Magnesium Sent. cc6 12:52 NT PRO-BNP Sent. cc6 12:52 PT-INR Sent. cc6 12:52 Troponin HS Sent. cc6 13:03 Clari Lewis, RN is Primary Nurse. me1 13:51 UAM Sent. me1 13:51 Urine collected: clean catch specimen, cloudy. me1 15:36 Michael Chávez MD is Referral Physician. ec2 15:51 IV discontinued, intact, bleeding controlled, No redness/swelling at site. Pressure me1 dressing applied. Administered Medications: No medications were administered Medication: 12:40 VIS not applicable for this client. me1 Outcome: 15:36 Discharge ordered by . ec2 15:51 Discharged to home ambulatory, with family, me1 15:51 Condition: stable 15:51 Discharge instructions given to patient, family, Instructed on discharge instructions, follow up and referral plans. Demonstrated understanding of instructions, follow-up care, 15:52 Patient left the ED. me1 Signatures: Dispatcher [employer] EDMS Debbie Harrison RN RN Della Cali Clari Lewis RN RN me1 Randell Mcgrath MD MD ec2 Radha Farias cc6 Corrections: (The following items were deleted from the chart) 11:37 11:35 Social history: Smoking status: Patient denies any tobacco usage or history of. hbhb 13:51 11:33 Chief complaint: Sent by Dr. Azevedo for abnormal EKG and fatigue x 2 weeks. Sinus me1 Edward on EKG hb
--- NOTE | 2024-05-21 15:37 | EDPHYS ---
Physician Documentation [facility] Name: Kaitlyn Sesay Age: 64 yrs Sex: Female : 1960 Arrival Date: 05/21/2024 Time: 11:08 Bed 24 Private MD: ED Physician Randell Mcgrath HPI: 05/21 11:58 This 64 yrs old Female presents to ER via Ambulatory with complaints of ec2 Abnormal Lab Results - EKG, Sluggish. 11:58 Patient arrives today for evaluation of generalized weakness. Was at PCP office today ec2 was told to come be evaluated for the patient's bradycardia. Reports no chest pain, denies shortness of breath, denies leg swelling. Reports history of hypertension, on amlodipine. Patient reports she does have some occasional lightheadedness.. Historical: - Allergies: 11:35 Azithromycin; hb 11:35 Cephalexin; hb 11:35 Codeine; hb 11:35 Bees; hb 11:35 Keflex; hb 11:35 Oxycodone; hb 11:35 PENICILLINS; hb 11:35 Rocephin; hb 11:35 Rofecoxib; hb 11:35 steroids; hb 11:35 Sulfa (Sulfonamide Antibiotics); hb - PMHx: 11:41 Chronic pain; Hypercholesterolemia; Atrial fibrillation; fentanyl pump; GI Bleed; hb Hypertensive disorder; Thyroid problem; cirrhosis of liver; esophageal varicies; liver failure; - PSHx: 11:41 L5 \T\ S1; hb - Immunization history:: Adult Immunizations up to date. - Infectious Disease History:: Denies. - Social history:: Smoking status: Reported history of juuling and/or vaping. ROS: 11:58 Constitutional: as per hpi ec2 Exam: 11:58 Constitutional: GEN: NAD Head: atraumatic Eyes: EOMI Ears: External ears are ec2 normal. CV bradycardia LUNGS: no respiratory distress ABD: non-distended SKIN: no evidence of rashes MSK: no evidence of trauma Vital Signs: 11:33 BP 127 / 58; Pulse 45; Resp 16; Temp 97.2; Pulse Ox 100% on R/A; Weight 81.65 kg; hb Height 5 ft. 6 in. ; Pain 0/10; 13:00 BP 142 / 76; Pulse 45; Resp 18; Pulse Ox 100% ; me1 14:00 BP 146 / 65; Pulse 43; Resp 17; Pulse Ox 100% ; me1 14:53 BP 147 / 63; Pulse 43; Resp 18; Pulse Ox 98% ; me1 15:45 BP 128 / 63; Pulse 44; Resp 16; Temp 98.4; Pulse Ox 98% ; me1 11:33 Body Mass Index 29.05 (81.65 kg, 167.64 cm) hb 11:33 Pain Scale: Adult hb MDM: 11:33 Medical Screening Exam initiated ec2 11:58 Data reviewed: vital signs, nurses notes. ED course: Patient arrives today for ec2 evaluation of weakness. Examination is unrevealing. Will obtain lab work, EKG, chest x-ray.. 12:54 ED course: Chest x-ray shows cardiomegaly along with likely chronic opacities.. ec2 13:13 ED course: EKG independently reviewed and interpreted by me, shows sinus bradycardia, ec2 rate of 42, no acute ST segment elevations, intervals are nonactionable.. 13:20 ED course: Metabolic profile shows renal dysfunction. CBC without anemia. BNP minimally ec2 elevated at 367. Troponin at 53. . 15:35 ED course: On reassessment patient is well-appearing and in no acute distress. I did ec2 external chart review that showed heart rates in the 40s and 50s back in her June visit, patient remains asymptomatic in no acute distress with reassuring blood pressures. I discussed possible inpatient hospitalization for symptomatic management however states that she feels comfortable to go home. Patient without any hemodynamic instability at this time. I instructed nursing to follow-up with her primary care doctor as well as a telephone collector for further evaluation of her bradycardia. Patient is on reportedly amlodipine and ramipril as well as propranolol, I instructed her she needs discussed with her all of these agents are needed given her bradycardia. Will discharge home. Return precautions given.. 05/21 11:49 Order name: Basic Metabolic Panel; Complete Time: 13:20 ec2 05/21 11:49 Order name: CBC with Diff; Complete Time: 13:20 ec2 05/21 11:49 Order name: Magnesium; Complete Time: 13:20 ec2 05/21 11:49 Order name: NT PRO-BNP; Complete Time: 13:20 ec2 05/21 11:49 Order name: PT-INR; Complete Time: 15:08 ec2 05/21 11:49 Order name: Troponin HS; Complete Time: 13:20 ec2 05/21 11:49 Order name: UAM; Complete Time: 15:08 ec2 05/21 11:49 Order name: XRAY Chest (1 view); Complete Time: 12:54 ec2 05/21 11:49 Order name: Cardiac monitoring; Complete Time: 13:03 ec2 05/21 11:49 Order name: EKG - Nurse/Tech; Complete Time: 13:03 ec2 05/21 11:49 Order name: IV Saline Lock; Complete Time: 12:52 ec2 05/21 11:49 Order name: Labs collected and sent; Complete Time: 12:52 ec2 05/21 11:49 Order name: O2 Per Protocol; Complete Time: 12:52 ec2 05/21 11:49 Order name: O2 Sat Monitoring; Complete Time: 12:52 ec2 Administered Medications: No medications were administered Disposition Summary: 05/21/24 15:36 Discharge Ordered Notes: Location: Home ec2 Condition: Stable ec2 Diagnosis - Bradycardia, unspecified ec2 - Weakness ec2 Followup: ec2 - With: Michael Chávez MD - When: - Reason: Recheck today's complaints Discharge Instructions: - Discharge Summary Sheet ec2 - Bradycardia, Adult ec2 Forms: - Medication Reconciliation Form ec2 - Antibiotic Education ec2 - Prescription Opioid Use ec2 - Patient Portal Instructions ec2 - Leadership Thank You Letter ec2 Signatures: Dispatcher [employer] EDDebbie oCrnell RN RN Randell Mcgrath MD MD ec2 Corrections: (The following items were deleted from the chart) 11:37 11:35 Social history: Smoking status: Patient denies any tobacco usage or history of. hbhb 11:50 11:50 BASIC METABOLIC PANEL+C.LAB.BRZ ordered. EDMS EDMS 11:50 11:50 CBC+H.LAB.BRZ ordered. EDMS EDMS 11:50 11:50 MAGNESIUM+C.LAB.BRZ ordered. EDMS EDMS 11:50 11:50 PROBNP+C.LAB.BRZ ordered. EDMS EDMS 11:50 11:50 PROTIME (+INR)+COAG.LAB.BRZ ordered. EDMS EDMS 11:50 11:50 Troponin High Sensitivity+C.LAB.BRZ ordered. EDMS EDMS 11:50 11:50 Urinalysis W/Microscopic+U.LAB.BRZ ordered. EDMS EDMS 11:50 11:50 Chest Single View+RAD.RAD.BRZ ordered. EDMS EDMS
[2024-05-21 17:10] VITALS: O2SAT 98
[2024-05-21 17:12] VITALS: BP 128/63; TEMP 98.4
--- NOTE | 2024-05-24 13:44 | EKG ---
Test Date: 2024-05-21 Test Time: 13:01:57 Inventory Accountant: GABRIELA MEASUREMENT RESULTS: Intervals: Rate: 42 NH: 180 QRSD: 80 QT: 520 QTc: 434 [place]: P: 45 [place]: 180 QRS: 63 T: 40 INTERPRETIVE STATEMENTS: Marked sinus bradycardia Abnormal ECG Compared to ECG 12/20/2023 14:51:33 Sinus rhythm no longer present Electronically Signed On 05-24-24 13:37:57 HEAD TEACHER by Michael Chávez
== END 2024-05-21 15:52 | disposition home or self-care (01) ==
LOC: ER 11:08
DX: R00.1 Bradycardia, unspecified (principal); R53.1 Weakness; I48.91 Unspecified atrial fibrillation; I10 Essential (primary) hypertension; G89.29 Other chronic pain; E78.00 Pure hypercholesterolemia, unspecified; Z87.891 Personal history of nicotine dependence; Z88.0 Allergy status to penicillin; Z88.1 Allergy status to other antibiotic agents; Z88.2 Allergy status to sulfonamides; Z88.5 Allergy status to narcotic agent; Z88.8 Allergy status to other drugs, medicaments and biological substances; Z91.030 Bee allergy status
CPT/HCPCS: 36415; 71045; 80048; 81001; 83735; 83880; 84484; 85025; 85610; 93005; 99284

== ENCOUNTER 2024-08-01 10:55 | Inpatient (IN) | payer OTHER ==
[2024-07-26 12:49] LABS: PT Prothrombin Time 12.9 SECONDS (10.0-13.0); PTT, Activated Partial Thromb 35.3 SECONDS (24.3-36.9); Protime INR 1.14
[2024-07-26 12:53] LABS: Anion Gap 6.1 mEq/L (5.0-15.0); Potassium 4.1 mEq/L (3.5-5.1)
[2024-07-26 12:59] LABS: Absolute Basophils 0.1 K/uL (0-0.5); Absolute Eosinophils 0.3 K/uL (0-0.5); Absolute Lymphocytes (CBC) 1.1 K/uL (0.7-4.9); Absolute Monocytes 0.5 K/uL (0.1-1.3); Absolute Neutrophil 1.8 K/uL (1.8-8.0); Basophils % 2.3 % (0-1.3); Eosinophils % 8.5 % (0-4.4); Hematocrit 38.4 % (36.0-45.0); Hemoglobin 12.9 g/dL (12.0-15.0); Lymphocytes % 29.7 % (15.3-44.8); MCH 32.3 pg (27.0-35.0); MCHC 33.6 g/dL (32.0-36.0); MCV 96.2 fL (80-100); MPV 10.3 fL (7.6-11.3); Monocytes % 12.5 % (3.3-12.3); Nucleated Red Blood Cells % 0.3 % (0-0); Platelets 140 thou/uL (152-406); RBC Red Blood Cell Count 3.99 M/uL (3.86-4.86); Red Cell Distribution Width 14.5 % (12.1-15.2)
--- NOTE | 2024-07-29 12:12 | EKG ---
Test Date: 2024-07-26 Test Time: 13:32:49 Opthalmic Tech: GEO MEASUREMENT RESULTS: Intervals: Rate: 45 [place]: 174 QRSD: 102 QT: 502 QTc: 434 [place]: P: 26 [place]: 174 QRS: 78 T: 58 INTERPRETIVE STATEMENTS: Marked sinus bradycardia Abnormal ECG Compared to ECG 05/21/2024 13:01:57 No significant changes Electronically Signed On 07-29-24 12:05:59 IT ADMIN by Jonathan Kinney
[2024-08-01] MEDS: NA CHLORIDE 0.9% 500 ML ONE (10:57)
[2024-08-01] MEDS ORDERED: ATROPINE SULF 1 MG/10 ML SYR IV ONE (13:37)
[2024-08-01] MEDS ORDERED: LIDOCAINE 1% 20 ML MDV ONE (13:37)
[2024-08-01] MEDS ORDERED: HEPARIN 10,000 UNIT/10 ML VIAL IV ONE (13:37)
[2024-08-01] MEDS ORDERED: HEPA 1000U/500MLS 2,000 UNIT/1,000 ML BAG IV ONE (13:37)
[2024-08-01] MEDS ORDERED: VERAPAMIL HCL 10 MG/4 ML VIAL IV ONE (13:37)
[2024-08-01] MEDS ORDERED: MIDAZOLAM HCL 2 MG/2 ML INJ ONE (13:37)
[2024-08-01] MEDS ORDERED: ASPIRIN 325 MG TAB ONE (13:38)
[2024-08-01] MEDS ORDERED: HEPARIN 5000 UNIT/ML 1 ML VIAL ONE (13:38)
[2024-08-01] MEDS ORDERED: CLOPIDOGREL 75 MG TABLET ONE (13:38)
[2024-08-01] MEDS ORDERED: FENTANYL CITR 100 MCG/2 ML ONE (13:38)
[2024-08-01] MEDS ORDERED: TICAGRELOR 90 MG TABLET PO ONE (13:38)
[2024-08-01] MEDS: FUROSEMIDE 20 MG/ 2ML VIAL ONE (16:35)
[2024-08-01] MEDS: FENTANYL CITR 100 MCG/2 ML ONE (17:45)
[2024-08-01] MEDS ORDERED: ONDANSETRON 4 MG/2 ML VIAL IV PRN (19:46)
[2024-08-01] MEDS ORDERED: ALPRAZOLAM 0.25 MG TABLET PO PRN (19:46)
[2024-08-01] MEDS ORDERED: MONTELUKAST 10 MG TAB PO PRN (19:53)
--- NOTE | 2024-08-01 20:04 | P.HP ---
Patient History Date of Service: 08/02/24 History of Present Illness: 64-year-old female with a past medical history of nonrheumatic mitral valve insufficiency, chronic pain syndrome with pain pump, heart failure with preserved ejection fraction, bradycardia who underwent left and right heart catheterization with drug-eluting stent placed in the mid LAD. I have been asked to admit her to the hospital for further observation. She denies any acute complaints. Nurses at bedside holding pressure on her neck. Pain is rated as a 7 out of 10 currently. She denies fevers, chills. Allergies venom-honey bee [bee venom (honey bee)] Allergy (Intermediate, Verified 07/26/24 12:32) Anaphylaxis ceftriaxone [From Rocephin] Allergy (Mild, Verified 07/26/24 12:32) Itching eszopiclone [From Lunesta] Allergy (Verified 07/26/24 12:32) headache meloxicam [From Mobic] Allergy (Verified 07/26/24 12:32) Unknown rofecoxib [From Vioxx] Allergy (Verified 07/26/24 12:32) Unknown zolpidem [From Ambien] Allergy (Verified 07/26/24 12:32) sleeps too long azithromycin [From Zithromax Z-Dioni] Adverse Reaction (Mild, Verified 07/26/24 12:32) sob/heart racing vomiting cephalexin monohydrate [From Keflex] Adverse Reaction (Mild, Verified 07/26/24 12:32) swelling Penicillins Adverse Reaction (Mild, Verified 07/26/24 12:32) swelling Sulfa (Sulfonamide Antibiotics) [Sulfa(Sulfonamide Antibiotics)] Adverse Reaction (Mild, Verified 07/26/24 12:32) Rash OXY MEDS Allergy (Uncoded 07/26/24 12:33) Unknown steroids Adverse Reaction (Mild, Uncoded 07/26/24 12:33) swelling Home Medications: Gabapentin 600 mg PO TID 04/23/19 Levothyroxine [Synthroid*] 125 mcg PO [id number] 04/23/19 Amitriptyline [Elavil*] 50 mg PO BEDTIME 07/05/23 Furosemide 20 mg PO DAILY 07/05/23 Ramipril [Altace] 10 mg PO BEDTIME 07/05/23 Apixaban [Eliquis] 5 mg PO BID #60 tab 07/27/23 Ergocalciferol (Vitamin D2) [Vitamin D2] 1 cap PO DIRECTED 10/29/23 Propranolol [Inderal LA*] 60 mg PO DAILY 10/29/23 Amlodipine Besylate [Norvasc] 1 tab PO DAILY 08/01/24 Donepezil [Aricept*] 1 tab PO DAILY 08/01/24 Famotidine [Pepcid*] 1 tab PO DAILY 08/01/24 Hydrocodone Bit/Acetaminophen [Hydrocodon-Acetaminoph 7.5-325] 1 tab PO BID PRN 08/01/24 Linaclotide [Linzess] 1 cap PO DAILY PRN 08/01/24 Omeprazole 1 tab PO DAILY 08/01/24 Ondansetron HCl 1 tab PO BID PRN 08/01/24 Potassium Citrate [Potassium Citrate ER] 1,080 mg PO DAILY 08/01/24 - Past Medical/Surgical History Diabetic: No -: HTN -: Hypothyroid -: chronic pain -: slipped disc -: Gi Bleed -: Liver Failure -: Afib -: gallbladder -: , hysterectomy -: appendix -: pain pump R implant - Family History Brother -: Liver disease - Social History Alcohol use: No CD- Drugs: No Caffeine use: Yes Review of Systems 10-point ROS is otherwise unremarkable Physical Examination - Vital Signs Blood Pressure: 125/56 Pulse: 47 Respirations: 18 - Physical Exam General: Alert, In no apparent distress HEENT: Atraumatic, Normocephalic Neck: Supple Respiratory: Clear to auscultation bilaterally, Normal air movement Cardiovascular: No edema, Normal pulses Gastrointestinal: Normal bowel sounds Musculoskeletal: No clubbing Integumentary: No rashes Neurological: Normal speech Lymphatics: No axilla or inguinal lymphadenopathy Assessment and Plan - Plan Coronary artery disease Atrial fibrillation Nonrheumatic mitral valve insufficiency Chronic pain syndrome Bradycardia Heart failure with preserved ejection fraction Tobacco dependence Essential hypertension s/p drug-eluting stent to mid LAD, dosed with heparin Continue Brilinta, aspirin, statin Continue amiodarone. Restart Eliquis Monday morning Strict I's and O's, daily weights Continue Lasix every third day Continue pain control with pain pump and [place] as needed Continue amlodipine, propranolol, ramipril DVT prophylaxis with SCDs - Advance Directives Does patient have a Living Will: Yes Does patient have a Durable POA for Healthcare: No
[2024-08-01] MEDS: TICAGRELOR 90 MG TABLET PO SCH (21:27)
[2024-08-01] MEDS: ATORVASTATIN 40 MG TAB PO SCH (21:27)
[2024-08-01 21:35] VITALS: BMI 30.4
[2024-08-01] MEDS: ramipriL 5 MG CAP PO SCH (21:52)
[2024-08-01] MEDS: HYDROCODONE/APAP 10/325 TAB PO PRN (22:53)
[2024-08-02 04:50] LABS: Absolute Basophils 0.1 K/uL (0-0.5); Absolute Eosinophils 0.3 K/uL (0-0.5); Absolute Lymphocytes (CBC) 1.4 K/uL (0.7-4.9); Absolute Monocytes 0.6 K/uL (0.1-1.3); Absolute Neutrophil 2.9 K/uL (1.8-8.0); Basophils % 1.3 % (0-1.3); Eosinophils % 5.5 % (0-4.4); Hematocrit 36.3 % (36.0-45.0); Hemoglobin 12.6 g/dL (12.0-15.0); Lymphocytes % 26.8 % (15.3-44.8); MCH 32.7 pg (27.0-35.0); MCHC 34.7 g/dL (32.0-36.0); MCV 94.3 fL (80-100); MPV 10.2 fL (7.6-11.3); Neutrophils % 54.4 % (41.7-73.7); Platelets 149 thou/uL (152-406); RBC Red Blood Cell Count 3.84 M/uL (3.86-4.86); Red Cell Distribution Width 14.2 % (12.1-15.2)
[2024-08-02 05:08] LABS: Anion Gap 10.7 mEq/L (5.0-15.0); Potassium 3.7 mEq/L (3.5-5.1)
[2024-08-02] MEDS: POTASSIUM 25 MEQ EFFERV TAB PO ONE (05:57)
[2024-08-02] MEDS: LEVOTHYROXINE SOD 0.125 MG TAB PO SCH (05:57)
[2024-08-02 08:12] VITALS: O2SAT 100
[2024-08-02] MEDS: AMIODARONE HCL 200 MG TAB PO SCH (08:15)
[2024-08-02] MEDS: ASPIRIN EC 81 MG TAB PO SCH (08:16)
[2024-08-02] MEDS ORDERED: HOME MED 1 EA UNK (Naloxegol Oxalate [Movantik] 25 MG Tablet) PO SCH (09:00)
[2024-08-02] MEDS: PROPRANOLOL HCL 60 MG SA CAP PO SCH (09:05)
[2024-08-02] MEDS: ACETAMINOPHEN 500 MG TAB PO PRN (11:29)
[2024-08-02] MEDS: APIXABAN 5 MG TABLET PO SCH (11:30)
[2024-08-02] MEDS ORDERED: FLU (Fluarix Triv) TS24-25(6MOS UP)/PF 45 MCG/0.5 ML Syringe IM ONE (12:00)
[2024-08-02] MEDS ORDERED: PNEUMOCOCCAL VACCINE 0.5 ML IMVAC ONE (12:00)
--- NOTE | 2024-08-02 14:01 | P.DS ---
Admission Date: 08/01/24 Discharge Date: 08/02/24 Disposition: ROUTINE DISCHARGE Discharge Condition: FAIR Brief History of Present Illness: 64-year-old female with a past medical history of nonrheumatic mitral valve insufficiency, chronic pain syndrome with pain pump, heart failure with preserved ejection fraction, bradycardia who underwent left and right heart catheterization with drug-eluting stent placed in the mid LAD. She she bled from the cardiac cath right jugular access. Patient was hospitalized for observation. Hospital Course: Diagnosis Coronary artery disease status post stent. Atrial fibrillation. Patient placed under observation on the medical floor. She was asymptomatic. The bleeding from the right jugular cardiac cath access stopped. Patient had no chest pain, vital stable. Patient evaluated by cardiology and deemed stable for discharge. Her Brilinta was changed to Plavix because patient was complaining of shortness of breath with the Brilinta. Patient to follow-up with Dr. Chávez within 1 to 2 weeks as outpatient. Vital Signs/Physical Exam: Temp Pulse Resp BP Pulse Ox 97.8 F 53 19 106/60 100 08/02/24 12:00 08/02/24 12:00 08/02/24 12:00 08/02/24 12:00 08/02/24 12:00 General: Alert, In no apparent distress, Oriented x3 HEENT: Mucous membr. moist/pink Neck: Supple, JVD not distended Respiratory: Clear to auscultation bilaterally, Normal air movement Cardiovascular: No edema, Regular rate/rhythm, Normal S1 S2 Gastrointestinal: Normal bowel sounds, Soft and benign, Non-distended, No tenderness Musculoskeletal: No swelling Integumentary: No rashes, No cyanosis Neurological: Normal strength at 5/5 x4 extr Laboratory Data at Discharge: WBC 5.40 thou/uL (4.3-10.9) 08/02/24 04:18 Hgb 12.6 g/dL (12.0-15.0) 08/02/24 04:18 Hct 36.3 % (36.0-45.0) 08/02/24 04:18 Plt Count 149 thou/uL (152-406) L 08/02/24 04:18 PT 12.9 SECONDS (10.0-13.0) H 07/26/24 12:29 INR 1.14 07/26/24 12:29 APTT 35.3 SECONDS (24.3-36.9) 07/26/24 12:29 Sodium 140 mEq/L (136-145) 08/02/24 04:18 Potassium 3.7 mEq/L (3.5-5.1) 08/02/24 04:18 BUN 17 mg/dL (7-18) 08/02/24 04:18 Creatinine 1.02 mg/dL (0.55-1.02) 08/02/24 04:18 Glucose 123 mg/dL (74-106) H 08/02/24 04:18 Home Medications: Gabapentin 600 mg PO TID 04/23/19 Levothyroxine [Synthroid*] 125 mcg PO [id number] 04/23/19 Amitriptyline [Elavil*] 50 mg PO BEDTIME 07/05/23 Furosemide 20 mg PO DAILY 07/05/23 Ramipril [Altace] 10 mg PO BEDTIME 07/05/23 Apixaban [Eliquis] 5 mg PO BID #60 tab 07/27/23 Ergocalciferol (Vitamin D2) [Vitamin D2] 1 cap PO DIRECTED 10/29/23 Propranolol [Inderal LA*] 60 mg PO DAILY 10/29/23 Donepezil [Aricept*] 1 tab PO DAILY 08/01/24 Famotidine [Pepcid*] 1 tab PO DAILY 08/01/24 Hydrocodone Bit/Acetaminophen [Hydrocodon-Acetaminoph 7.5-325] 1 tab PO BID PRN 08/01/24 Linaclotide [Linzess] 1 cap PO DAILY PRN 08/01/24 Omeprazole 1 tab PO DAILY 08/01/24 Ondansetron HCl 1 tab PO BID PRN 08/01/24 Potassium Citrate [Potassium Citrate ER] 1,080 mg PO DAILY 08/01/24 Amiodarone HCl [Cordarone*] 200 mg PO DAILY #30 tab 08/02/24 Aspirin [Aspirin EC 81 MG] 81 mg PO DAILY #30 tab 08/02/24 Atorvastatin Calcium [Lipitor] 40 mg PO BEDTIME #30 tab 08/02/24 Clopidogrel Bisulfate [Plavix] 75 mg PO DAILY #30 tab 08/02/24 New Medications: Aspirin [Aspirin EC 81 MG] 81 mg PO DAILY #30 tab Amiodarone HCl [Cordarone*] 200 mg PO DAILY #30 tab Atorvastatin Calcium [Lipitor] 40 mg PO BEDTIME #30 tab Clopidogrel Bisulfate [Plavix] 75 mg PO DAILY #30 tab Followup: Michael Chávez MD [ACTIVE - CAN ADMIT] - 1-2 Weeks Effie Azevedo DO [Primary Care Provider] - 1-2 Weeks Time spent managing pt's care (in minutes): 33
[2024-08-02] MEDS: CLOPIDOGREL 75 MG TABLET PO ONE (14:15)
--- NOTE | 2024-08-02 15:04 | RAD REPORT ---
EXAM: Chest Single View HISTORY: 64 years Female Dyspnea COMPARISON: 05/21/2024 FINDINGS: LUNGS/PLEURA: The lungs are clear. No pleural effusions or pneumothorax. No pulmonary edema. CARDIAC/MEDIASTINUM: Mild cardiomegaly UPPER ABDOMEN: No significant abnormality. BONES: No acute abnormality. LINES/TUBES/OTHER: Portions of the chest are obscured by overlying leads. IMPRESSION: No definite evidence of acute cardiopulmonary disease. Numerous leads overlying the left left chest w hich partially obscures the left lung.
[2024-08-02 16:52] VITALS: BP 128/67; TEMP 97.9
[2024-08-04] MEDS ORDERED: FUROSEMIDE 20 MG TABLET PO SCH (09:00)
--- NOTE | 2024-08-07 19:55 | OP ---
Date of Procedure: 08/01/2024 Surgeon: ЮЛИЯ ROBERTSON Procedures Performed: 1. Coronary angiogram. 2. Left heart catheterization. 3. Right heart catheterization. 4. IVUS of mid LAD, minimal luminal area 2.7 mm2. 5. PCI of mid LAD, used 3.5 x 60 mm Synergy drug-eluting stent. Indication: Chest pain and unstable angina. Access: 1. Right radial artery 6-[place] closed with TR band. 2. Right IJ 7-[place] closed with manual pressure. Complications: None. Bleeding: Less than 50 mL. Anesthesia: Total sedation time was 1 hour. Description Of Procedure: After risks, benefits, and alternatives were explained, the patient agreed to procedure and signed informed consent. [facility]pped and draped in sterile fashion. Then, I accessed right radial artery using pediatric micropuncture kit and ultrasound guidance, placed 6-[place] slender sheath and accessed right IJ using micropuncture kit ultrasound guidance, and placed 7-[place] pinnacle sheath and then I took a 7-Frenc h balloon-tipped [place] catheter through the IJ access into the right atrium, right ventricle, pulmonar y artery and wedge, obtained waveform and pressure and measured cardiac output using thermodilution m ethod and then removed the [place] and IJ access. Manual pressure was used for closure with good hemost asis. Then, I took 5-[place] Rogers 4 catheter over J-wire through the radial access into the aortic r oot across the aortic valve, measured the LVEDP. Pullback did not record any gradient and then engag ed left main, took standard views and then the RCA, took standard views and then gave systemic hepari n to assure she level above 250, took EBU 3.5 guide into the aortic root, engaged left main and took a short run-through wire into the LAD, placed it distally and then took IVUS catheter and there was s ignificant stenosis in the mid segment very hazy and minimal luminal area was 2.7 mm2 and it is a 3.5 mm vessel. Then, I took a 3.0 balloon pre-dilated lesion and then I placed a 3.5 x [address] ug-eluting stent across the area of stenosis. Excellent findings at the end. Wire was removed. Fin al angiogram was satisfactory and then removed the guide and the sheath and placed TR band with good hemostasis. Findings: 1. Coronary angiogram. a. Left main has 20% stenosis. b. LAD mid 70% stenosis, minimal luminal area 2.7 mm2 by IVUS, status post successful PCI as abov e. Rest of LAD is normal diagonal branches. c. Left circumflex; proximal 30# to 40% stenosis. OM1 has 30% stenosis and it is large and domin ant. d. RCA is nondominant with mid 40% stenosis. 2. Right heart catheterization: RA pressure is 4, RV pressure is 31/1, mean of 6. PA pressure is 29 /1, mean of 18. Pulmonary wedge pressure was 8 and the LVEDP was 12 mmHg. Cardiac output average wa s 4.6 L/minute. Conclusion: 1. Severe mid LAD stenosis, status post successful PCI. 2. Normal filling pressures. Recommendation: Aspirin, Brilinta, and statin. During this procedure, heparin was given to assure A CT level above 250 and patient was loaded with dual antiplatelet therapy. SR/MODL Voice ID: [id number] Report ID: [id number]
== END 2024-08-02 16:30 | disposition home or self-care (01) | DRG 322 ==
LOC: CCL 10:55 → 4TH 19:46
PROVIDERS: ADMIT Internal Medicine Interventional Cardiology; ATTEND Internal Medicine
PROC: 027034Z Dilation of Coronary Artery, One Artery with Drug-eluting Intraluminal Device, Percutaneous Approach (ICD-10-PCS; principal; 2024-08-01)
PROC: 4A023N8 Measurement of Cardiac Sampling and Pressure, Bilateral, Percutaneous Approach (ICD-10-PCS; 2024-08-01)
PROC: B2111ZZ Fluoroscopy of Multiple Coronary Arteries using Low Osmolar Contrast (ICD-10-PCS; 2024-08-01)
DX: I25.10 Atherosclerotic heart disease of native coronary artery without angina pectoris (principal); I50.32 Chronic diastolic (congestive) heart failure; I48.0 Paroxysmal atrial fibrillation; I11.0 Hypertensive heart disease with heart failure; I34.0 Nonrheumatic mitral (valve) insufficiency; G89.4 Chronic pain syndrome; R00.1 Bradycardia, unspecified; F17.210 Nicotine dependence, cigarettes, uncomplicated; Z88.0 Allergy status to penicillin; Z88.1 Allergy status to other antibiotic agents; Z88.8 Allergy status to other drugs, medicaments and biological substances; Z79.890 Hormone replacement therapy; Z79.01 Long term (current) use of anticoagulants; Z79.899 Other long term (current) drug therapy; Z90.710 Acquired absence of both cervix and uterus
CPT/HCPCS: 36415; 71045; 76937; 80048; 84484; 85025; 85610; 85730; 93005; 93460; 94760; 99152; 99153; C1725; C1893; C9600; J0461; J1644; J1940; J2003; J2250; J3010; J7040; Q9966

== ENCOUNTER 2024-08-09 02:54 | Emergency (ER) | payer OTHER ==
[2024-08-09] MEDS ORDERED: droPERidol 5 MG/2 ML VIAL ONE (03:05)
[2024-08-09] MEDS ORDERED: ONDANSETRON 4 MG/2 ML VIAL ONE (03:05)
[2024-08-09] MEDS ORDERED: KETOROLAC 30 MG/ML INJ ONE (03:05)
[2024-08-09] MEDS ORDERED: FENTANYL CITR 100 MCG/2 ML ONE (03:05)
[2024-08-09 03:43] LABS: Absolute Eosinophils 0.1 K/uL (0-0.5); Absolute Lymphocytes (CBC) 1.7 K/uL (0.7-4.9); Absolute Monocytes 0.1 K/uL (0.1-1.3); Absolute Neutrophil 2.7 K/uL (1.8-8.0); Basophils % 0.6 % (0-1.3); Eosinophils % 3.3 % (0-4.4); Hematocrit 34.8 % (36.0-45.0); Hemoglobin 11.9 g/dL (12.0-15.0); Lymphocytes % 36.7 % (15.3-44.8); MCHC 34.1 g/dL (32.0-36.0); MCV 96.9 fL (80-100); MPV 10.3 fL (7.6-11.3); Monocytes % 1.4 % (3.3-12.3); Nucleated Red Blood Cells % 0.2 % (0-0); Platelets 170 thou/uL (152-406); RBC Red Blood Cell Count 3.59 M/uL (3.86-4.86); Red Cell Distribution Width 14.6 % (12.1-15.2)
[2024-08-09] MEDS ORDERED: ATROPINE SULFATE 1 MG/ML INJ ONE (03:46)
[2024-08-09] MEDS ORDERED: NOREPINEPHRINE BITARTRATE/D5W 4 MG/250 ML BAG IV ONE ×2 (03:46→07:00)
[2024-08-09 03:51] LABS: PT Prothrombin Time 19.1 SECONDS (10-13.0); Protime INR 1.72
[2024-08-09] MEDS ORDERED: NA CHLORIDE 0.9% 2,000 ML ONE (03:51)
[2024-08-09] MEDS ORDERED: ALBUMIN HUMAN 25% 200 ML IV ONE (04:06)
[2024-08-09 04:08] LABS: Albumin 1.6 g/dL (3.4-5.0); Albumin/Globulin Ratio 0.6 (1.1-1.8); Anion Gap 10.4 mEq/L (5.0-15.0); Bilirubin Direct 0.2 mg/dL (0-0.2); Bilirubin Indirect, Calculated 0.5 mg/dL (0.2-0.8); Bilirubin Total 0.7 mg/dL (0.2-1.0); Globulin 2.7 g/dL (2.3-3.5); Protein, Total 4.3 g/dL (6.4-8.2); Troponin High Sensitivity 117.7 pg/mL (<58.9)
[2024-08-09 04:09] LABS: Magnesium 1.3 mg/dL (1.6-2.4); Potassium 3.4 mEq/L (3.5-5.1)
[2024-08-09] MEDS ORDERED: CALCIUM GLUCONATE 1 GM IVPB 2 GM/100 ML BAG IV ONE (04:12)
[2024-08-09] MEDS ORDERED: Calcium Chloride 10% INJ SYR IV ONE (04:12)
[2024-08-09] MEDS ORDERED: Magnesium Sulfate 2gm IVPB 2 G/50 ML BAG IV ONE (04:20)
[2024-08-09 04:50] LABS: Specific Gravity 1.018 (1.005-1.030); Sqamous Epithelial None Seen /HPF (None Seen); Urine Bacteria None Seen /HPF (<20); Urine Bilirubin NEGATIVE (Negative); Urine Blood Trace (Negative); Urine Clarity Clear (Clear); Urine Color Light-Yellow (Yellow); Urine Crystals Unidentified Few /HPF (None Seen); Urine Culture Reflex Order NOT NEEDED; Urine Glucose NEGATIVE (Negative); Urine Ketones NEGATIVE (Negative); Urine Micro Reflex YN NO BILL MICROSCOPIC; Urine Mucus Slight /HPF (None Seen); Urine Nitrite NEGATIVE (Negative); Urine Protein NEGATIVE (Negative); Urine RBC <5 /HPF (None Seen); Urine Urobilinogen Normal (Normal); Urine WBC None Seen /HPF (<5); Urine pH 5.5 (5.0-7.0)
[2024-08-09 04:55] LABS: Barbiturates NEGATIVE (NEGATIVE); Benzodiazepines NEGATIVE (NEGATIVE); Cocaine NEGATIVE (NEGATIVE); METHAMPHETAM NEGATIVE (NEGATIVE); Methadone NEGATIVE (NEGATIVE); Opiates NEGATIVE (NEGATIVE); Phencyclidine NEGATIVE (NEGATIVE); THC Cannibis NEGATIVE (NEGATIVE)
[2024-08-09] MEDS ORDERED: CEFEPIME 2 GM VIAL ONE (05:40)
[2024-08-09] MEDS ORDERED: NA CHLORIDE 0.9% 500 ML ONE (05:40)
[2024-08-09] MEDS ORDERED: NA CHLORIDE 0.9% 100 ML ONE (05:40)
[2024-08-09] MEDS ORDERED: VANCOMYCIN 1 GM/VIAL ONE (05:40)
--- NOTE | 2024-08-09 06:03 | RAD REPORT ---
EXAM DESCRIPTION: Chest Single View CLINICAL HISTORY: CVL COMPARISON: None. FINDINGS: 1 view(s) of the chest. Tubes and lines: Right IJ central venous catheter tip in the SVC. Leads overlie the chest. Cardiomediastinal silhouette: Atherosclerotic calcification of the thoracic aorta. Cardiomegaly. Lungs: Pulmonary vascular congestion with bilateral interstitial opacities. Low lung volumes. No pneu mothorax. Bones: No acute osseous abnormality. Degenerative change of the spine and shoulders. Upper abdomen: No abnormality identified. IMPRESSION: 1. Right IJ central venous catheter in appropriate position. 2. Cardiomegaly with pulmonary edema pattern. Electronically signed by: Dima Shetty DO 08/09/2024 05:48 AM CDT RP 4ZDM Due to temporary technical issues with the PACS/[employer] reporting system, reports are being ancelmo d by the in-house radiologist without review as a courtesy to ensure prompt reporting the interpreting radiologist is fully responsible for the content of the report. Transcribed Date/Time: 08/09/2024 6:03 AM
[2024-08-09] MEDS ORDERED: FUROSEMIDE 20 MG/ 2ML VIAL ONE (06:09)
[2024-08-09] MEDS ORDERED: FUROSEMIDE 40 MG/4 ML VIAL ONE (06:09)
--- NOTE | 2024-08-09 06:13 | RAD REPORT ---
EXAM DESCRIPTION: Head C Spine Mpr Wo Con CLINICAL HISTORY: CONFUSED COMPARISON: 10/29/2023 TECHNIQUE: Axial CT of the head obtained from the skull apex to the skull base without contrast. Axia l CT images of the cervical spine obtained without contrast. This exam was performed according to our departmental dose-optimization program, which includes automated exposure control, adjustment of the mA and/or kV according to patient size and/or use of iterative reconstruction technique. FINDINGS: Head CT: No acute intracranial hemorrhage identified. No mass, mass effect, shift of the midline, abnormal ext ra-axial fluid collection or CT evidence of acute ischemic change identified. The ventricular system and sulcal spaces are age appropriate. Scattered areas of hypodensity throughout the suprate ntorial white matter are nonspecific and may be related to chronic small vessel ischemic change. The visualized paranasal sinuses and the mastoids are clear. No skull fracture identified. Visualiz ed orbits and globes are unremarkable. Atherosclerotic calcification of the intracranial internal carotid arteries. Cervical CT : Straightening of the cervical lordosis may be secondary to patient positioning. Block vertebrae C6/7. The atlantoaxial, atlantodental, and occipitoatlantal intervals are preserved. No fracture identified. Vertebral body height preserved. Prevertebral soft tissues are unremarkable. [id number] multilevel loss of intervertebral disc height with endplate spondylosis, facet arthr opathy, and uncovertebral spurring. Posterior disc osteophyte complex at multiple levels mildly encroach upon the anterior spinal canal. Mild neural foraminal narrowing. Visualized thyroid is unremarkable. No cervical lymphadenopathy. No pneumothorax in the visualized lung apices. IMPRESSION: 1. No acute intracranial abnormality by CT criteria. 2. No acute fracture or subluxation of the cervical spine. 3. Moderate multilevel degenerative change of the cervical spine. Electronically signed by: Dima Shetty DO 08/09/2024 05:41 AM CDT 4ZDM Due to temporary technical issues with the PACS/[employer] reporting system, reports are being ancelmo d by the in-house radiologist without review as a courtesy to ensure prompt reporting the interpreting radiologist is fully responsible for the content of the report. Transcribed Date/Time: 08/09/2024 6:13 AM
--- NOTE | 2024-08-09 06:14 | RAD REPORT ---
EXAM DESCRIPTION: Angio Aorta For Dissection CLINICAL HISTORY: ABDOMINAL DISTENTION COMPARISON: 04/21/2024 TECHNIQUE: CTA of the chest, abdomen, and pelvis obtained following IV administration of iodinated co ntrast. 3-D/MIP reformatted images available. This exam was performed according to our departmental dose-optimization program, which includes automated exposure control, adjustment of the mA and/or kV according to patient size and/or use of iterative reconstruction technique. FINDINGS: CTA: Pulmonary arteries: Contrast bolus is adequate.No filling defects identified in the pulmonary arterie s to suggest pulmonary embolus. Great Vessels: Great vessels have normal anatomic configuration. Thoracic Aorta: No abnormalities of the thoracic aorta identified. Atherosclerotic calcification of t horacic aorta. Abdominal Aorta and Iliac Arteries: Aortoiliac atherosclerosis. Straight line flow into the common il iac and external iliac arteries. Visceral Arteries: Ostial plaque of the visceral arteries which are otherwise patent. Renal Arteries: Ostial plaque of the renal arteries without definite stenosis. Chest: Thyroid: No abnormalities of the visualized thyroid. Heart: Cardiomegaly with coronary artery atherosclerosis. Lymph Nodes: Multilevel enlarged paratracheal lymph nodes measuring up to 2.1 cm. Esophagus: Small hiatal hernia. Other: Right IJ central venous catheter. Lungs: Multifocal groundglass and airspace opacities as well as interlobular septal thickening. Pleura: No pleural effusion or pneumothorax. Trachea/Airways: No abnormalities of the visualized trachea or airways. Abdomen: Liver: Hepatomegaly with nodular contour. Gallbladder: Prior cholecystectomy. Spleen, Pancreas, and Adrenal Glands: The spleen, pancreas, and adrenal glands are unremarkable. Kidneys: No hydronephrosis or obstructing calculus. Vasculature: IVC have normal caliber and position. Stomach: The stomach and duodenum have normal course. Other: No free intraperitoneal air. No free fluid or lymphadenopathy. Right abdominal wall genera tor. Pelvis: Bladder: Ramirez catheter in the urinary bladder. Air in the urinary bladder likely related to cathet erization. Bowel: No dilated loops of large or small bowel. Large amount of stool. Appendix: Normal appendix. Pelvis: There are hysterectomy. Bones: No acute osseous abnormalities identified. IMPRESSION: 1. No evidence of pulmonary embolus. No evidence of aortic dissection. 2. Multifocal groundglass and airspace opacities as well as interlobular septal thickening. These f indings could be seen with pulmonary edema. Superimposed pneumonic process could contribute to this appearance. 3. Cardiomegaly with coronary artery atherosclerosis. 4. Hepatomegaly with nodular contour. This could be seen with cirrhosis. 5. Large amount of stool. 6. Mediastinal lymphadenopathy. This may be reactive. Follow-up CT of the chest in 3-6 months recom mended. Electronically signed by: Dima Shetty DO 08/09/2024 05:48 AM CDT RP 4ZDM Due to temporary technical issues with the PACS/[employer] reporting system, reports are being ancelmo d by the in-house radiologist without review as a courtesy to ensure prompt reporting the interpreting radiologist is fully responsible for the content of the report. Transcribed Date/Time: 08/09/2024 6:13 AM
--- NOTE | 2024-08-09 06:23 | EDPHYS ---
Physician Documentation [facility] Name: Kaitlyn Sesay Age: 64 yrs Sex: Female : 1960 Arrival Date: 08/09/2024 Time: 02:54 Bed 4 Private MD: ED Physician Jim Jorgensen HPI: 08/09 03:00 This 64 yrs old Female presents to ER via Unassigned with complaints of Fall sp4 Injury, Abdominal Cramping. 04:20 PMH - 08/01/2024 PCI - Findings: 1. Coronary angiogram. a. Left main has 20% stenosis. sp4 b. LAD mid 70% stenosis, minimal luminal area 2.7 mm2 by IVUS, status post successful PCI as above. Rest of LAD is normal diagonal branches. c. Left circumflex; proximal 30# to 40% stenosis. OM1 has 30% stenosis and it is large and dominant. d. RCA is nondominant with mid 40% stenosis. 2. Right heart catheterization: RA pressure is 4, RV pressure is 31/1, mean of 6. PA pressure is 29/1, mean of 18. Pulmonary wedge pressure was 8 and the LVEDP was 12 mmHg. Cardiac output average was 4.6 L/minute. Conclusion: 1. Severe mid LAD stenosis, status post successful PCI. 2. Normal filling pressures. Recommendation: Aspirin, Brilinta, and statin. During this procedure, heparin was given to assure ACT level above 250 and patient was loaded with dual antiplatelet therapy.. 05:15 Patient a 64 -year-old female presents with acute chest pain, abdominal pain, nausea, sp4 also fall at home while on the commode. On arrival patient is very uncomfortable. History of chronic pain with pain pump that contains fentanyl. Patient additionally has history of bradycardia and congestive heart failure. EMS reported patient was given Toradol and Phenergan IV. Patient's medications at home include gabapentin 300 mg p.o. 3 times daily, levothyroxine 125 mcg daily, amitriptyline 50 mg p.o. bedtime, furosemide 20 mg p.o. daily, ramipril 10 mg bedtime apixaban 5 mg twice daily, ergocalciferol daily, propranolol 60 mg daily, donepezil 1 tab daily, famotidine 1 mg daily, hydrocodone twice daily as needed, Linzess daily, omeprazole daily, ondansetron twice daily as needed, potassium daily, amiodarone 200 mg daily, aspirin 81 mg daily, atorvastatin 40 mg bedtime, clopidogrel 75 mg daily.. Historical: - Allergies: 03:00 Azithromycin; rg5 03:00 Bees; rg5 03:00 Cephalexin; rg5 03:00 Codeine; rg5 03:00 Keflex; rg5 03:00 Oxycodone; rg5 03:00 PENICILLINS; rg5 03:00 Rocephin; rg5 03:00 steroids; rg5 03:00 Rofecoxib; rg5 03:00 Sulfa (Sulfonamide Antibiotics); rg5 - PMHx: 03:00 Atrial fibrillation; Chronic pain; cirrhosis of liver; esophageal varicies; fentanyl rg5 pump; GI Bleed; Hypercholesterolemia; Hypertensive disorder; liver failure; Thyroid problem; - PSHx: 03:00 L5 \T\ S1; rg5 - Immunization history: Last tetanus immunization:. - Infectious Disease History:: Denies. - Social history:: Smoking status: Patient denies any tobacco usage or history of. - Family history:: not pertinent. ROS: 05:15 Constitutional: Negative for fever, chills, and weight loss, positive abdominal pain, sp4 positive chest pain, positive nausea, positive flank pain positive acute fall at home. 05:15 All other systems are negative, Exam: 05:15 Constitutional: This is a well developed, well nourished patient , moderate distress sp4 secondary to pain, not able to get comfortable. Restless Head/Face: Normocephalic, atraumatic. Eyes: Pupils equal round and reactive to light, extra-ocular motions intact. Lids and lashes normal. Conjunctiva and sclera are not injected. Cornea within normal limits. Periorbital areas with no swelling, redness, or edema. ENT: Nares patent. No nasal discharge, no septal abnormalities noted. Tympanic membranes are normal and external auditory canals are clear. Oropharynx with no redness, swelling, or masses, exudates, or evidence of obstruction, uvula midline. Mucous membranes moist. Neck: Trachea midline, no thyromegaly or masses palpated, and no cervical lymphadenopathy. Supple, full range of motion without nuchal rigidity, or vertebral point tenderness. Chest/axilla: Normal chest wall appearance and motion. Nontender with no deformity. No lesions are appreciated. Cardiovascular: Regular rate and rhythm with a normal S1 and S2. No gallops, murmurs, or rubs. Normal PMI, no JVD. No pulse deficits. Respiratory: Lungs have equal breath sounds bilaterally, clear to auscultation and percussion. No rales, rhonchi or wheezes noted. No increased work of breathing, no retractions or nasal flaring. Abdomen/GI: Soft, with normal bowel sounds. No tympany. Diffusely tender distended abdomen. Back: No spinal tenderness. No costovertebral tenderness. Skin: Warm, dry with normal turgor. Normal color with no rashes, no lesions, and no evidence of cellulitis. MS/ Extremity: Pulses equal, no cyanosis. Neurovascular intact. Full, normal range of motion. Neuro: Awake and alert, GCS 15, oriented to person, place Cranial nerves II-XII grossly intact. Motor strength 5/5 in all extremities. Sensory grossly intact. 05:15 ECG was reviewed by the Attending Physician. EKG 0 318 EKG reveals junctional rhythm rate [address] elevation or depression. Vital Signs: 03:00 BP 133 / 79; Pulse 88; Resp 19; Temp 97.8(O); Pulse Ox 99% ; Weight 81.65 kg; Height 5 rg5 ft. 6 in. ; Pain 9/10; 03:15 BP 61 / 49; Pulse 65; Resp 18; Pulse Ox 96% on R/A; rg5 03:32 BP 58 / 46; Pulse 68; Pulse Ox 94% on R/A; rg5 03:48 BP 80 / 66; Pulse 46; Resp 19; Pulse Ox 100% on 3 lpm NC; rg5 04:00 BP 110 / 46; Pulse 61; Resp 18; Pulse Ox 98% on 3 lpm NC; rg5 04:05 BP 99 / 63; Pulse 60; Resp 18; Pulse Ox 100% on 3 lpm NC; rg5 04:15 BP 127 / 61; Pulse 62; Resp 18; Pulse Ox 100% on 3 lpm NC; rg5 04:25 BP 123 / 61; Pulse 57; Resp 18; Temp 94; Pulse Ox 100% on 3 lpm NC; Pain 0/10; rg5 04:45 BP 143 / 58; Pulse 53; Resp 17; Pulse Ox 100% on 3 lpm NC; rg5 05:00 BP 113 / 54; Pulse 50; Resp 18; Pulse Ox 100% on 3 lpm NC; rg5 05:45 BP 122 / 55; Pulse 47; Resp 18; Temp 97.6(Ca); Pulse Ox 98% on 3 lpm NC; Pain 0/10; rg5 07:00 BP 107 / 51; Pulse 53; Resp 18; Pulse Ox 100% on 2 lpm NC; ph 07:15 BP 123 / 57; Pulse 55; Resp 18; Pulse Ox 100% on 2 lpm NC; ph 07:30 BP 117 / 56; Pulse 55; Resp 16; Temp 97.8; Pulse Ox 99% on 2 lpm NC; ph 07:45 BP 115 / 58; Pulse 54; Resp 16; Pulse Ox 100% on 2 lpm NC; ph 03:00 Body Mass Index 29.05 (81.65 kg, 167.64 cm) rg5 03:00 Pain Scale: Adult rg5 04:25 Pain Scale: Adult rg5 05:45 Pain Scale: Adult rg5 [place] Coma Score: 03:00 Eye Response: spontaneous(4). Motor Response: obeys commands(6). Verbal Response: rg5 oriented(5). Total: 15. 05:15 Eye Response: spontaneous(4). Motor Response: obeys commands(6). Verbal Response: sp4 oriented(5). Total: 15. Trauma Score (Adult): 03:00 Eye Response: spontaneous(1); Verbal Response: oriented(1); Motor Response: obeys rg5 commands(2); Systolic BP: > 89 mm Hg(4); Respiratory Rate: 10 to 29 per min(4); Juan Score: 15; Trauma Score: 12 Procedures: 04:30 Central Line: the site was prepped with Betadine, in sterile fashion, a triple lumen sp4 catheter was inserted, in the right internal jugular vein, in 1 attempts. placement was verified, by CXR, by blood return, Ultrasound-guided central line, the site was dressed with 4X4s, Tegaderm, foam tape, using sterile technique, the patient tolerated the procedure, well, Emergent central line placed for acute hypotension and bradycardia. MDM: 05:47 Differential diagnosis: abrasion, closed head injury, contusion, fracture, laceration, sp4 multiple trauma, sprain, strain. Data reviewed: vital signs, nurses notes, EMS record, old medical records, lab test result(s), EKG, radiologic studies, CT scan, plain films. Consideration of Admission/Observation Patient was admitted/placed on observation. Escalation of care including admission/observation considered. ED course: FINDINGS: Head CT: No acute intracranial hemorrhage identified. No mass, mass effect, shift of the midline, abnormal extra-axial fluid collection or CT evidence of acute ischemic change identified. The ventricular system and sulcal spaces are age appropriate. Scattered areas of hypodensity throughout the supratentorial white matter are nonspecific and may be related to chronic small vessel ischemic change. The visualized paranasal sinuses and the mastoids are clear. No skull fracture identified. Visualized orbits and globes are unremarkable. Atherosclerotic calcification of the intracranial internal carotid arteries. Cervical CT : Straightening of the cervical lordosis may be secondary to patient positioning. Block vertebrae C6/7. The atlantoaxial, atlantodental, and occipitoatlantal intervals are preserved. No fracture identified. Vertebral body height preserved. Prevertebral soft tissues are unremarkable. [id number] multilevel loss of intervertebral disc height with endplate spondylosis, facet arthropathy, and uncovertebral spurring. Posterior disc osteophyte complex at multiple levels mildly encroach upon the anterior spinal canal. Mild neural foraminal narrowing. Visualized thyroid is unremarkable. No cervical lymphadenopathy. No pneumothorax in the visualized lung apices. IMPRESSION: 1. No acute intracranial abnormality by CT criteria. 2. No acute fracture or subluxation of the cervical spine. 3. Moderate multilevel degenerative change of the cervical spine. Electronically signed by: Dima Shetty DO 08/09/2024 05:41 AM. 05:56 ED course: EXAM DESCRIPTION: Chest Single View CLINICAL HISTORY: CVL COMPARISON: None. sp4 FINDINGS: 1 view(s) of the chest. Tubes and lines: Right IJ central venous catheter tip in the SVC. Leads overlie the chest. Cardiomediastinal silhouette: Atherosclerotic calcification of the thoracic aorta. Cardiomegaly. Lungs: Pulmonary vascular congestion with bilateral interstitial opacities. Low lung volumes. No pneumothorax. Bones: No acute osseous abnormality. Degenerative change of the spine and shoulders. Upper abdomen: No abnormality identified. IMPRESSION: 1. Right IJ central venous catheter in appropriate position. 2. Cardiomegaly with pulmonary edema pattern. . ED course: EXAM DESCRIPTION: Angio Aorta For Dissection CLINICAL HISTORY: ABDOMINAL DISTENTION COMPARISON: 04/21/2024 TECHNIQUE: CTA of the chest, abdomen, and pelvis obtained following IV administration of iodinated contrast. 3-D/MIP reformatted images available. This exam was performed according to our departmental dose-optimization program, which includes automated exposure control, adjustment of the mA and/or kV according to patient size and/or use of iterative reconstruction technique. FINDINGS: CTA: Pulmonary arteries: Contrast bolus is adequate.No filling defects identified in the pulmonary arteries to suggest pulmonary embolus. Great Vessels:Great vessels have normal anatomic configuration. Thoracic Aorta:No abnormalities of the thoracic aorta identified. Atherosclerotic calcification of thoracic aorta. Abdominal Aorta and Iliac Arteries: Aortoiliac atherosclerosis. Straight line flow into the common iliac and external iliac arteries. Visceral Arteries: Ostial plaque of the visceral arteries which are otherwise patent. Renal Arteries: Ostial plaque of the renal arteries without definite stenosis. Chest: Thyroid:No abnormalities of the visualized thyroid. Heart:Cardiomegaly with coronary artery atherosclerosis. Lymph Nodes:Multilevel enlarged paratracheal lymph nodes measuring up to 2.1 cm. Esophagus:Small hiatal hernia. Other:Right IJ central venous catheter. Lungs:Multifocal groundglass and airspace opacities as well as interlobular septal thickening. Pleura:No pleural effusion or pneumothorax. Trachea/Airways:No abnormalities of the visualized trachea or airways. Abdomen: Liver: Hepatomegaly with nodular contour. Gallbladder: Prior cholecystectomy. Spleen, Pancreas, and Adrenal Glands: The spleen, pancreas, and adrenal glands are unremarkable. Kidneys: No hydronephrosis or obstructing calculus. Vasculature: IVC have normal caliber and position. Stomach: The stomach and duodenum have normal course. Other: No free intraperitoneal air. No free fluid or lymphadenopathy. Right abdominal wall generator. Pelvis: Bladder: Ramirez catheter in the urinary bladder. Air in the urinary bladder likely related to catheterization. Final Radiology Report Bowel: No dilated loops of large or small bowel. Large amount of stool. Appendix: Normal appendix. Pelvis:There are hysterectomy. Bones: No acute osseous abnormalities identified. IMPRESSION: 1. No evidence of pulmonary embolus. No evidence of aortic dissection. 2. Multifocal groundglass and airspace opacities as well as interlobular septal thickening. These findings could be seen with pulmonary edema. Superimposed pneumonic process could contribute to this appearance. 3. Cardiomegaly with coronary artery atherosclerosis. 4. Hepatomegaly with nodular contour. This could be seen with cirrhosis. 5. Large amount of stool. 6. Mediastinal lymphadenopathy. This may be reactive. Follow-up CT of the chest in 3-6 months recommended. Electronically signed by: Dima Shetty DO 08/09/2024 05:48 AM. 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 ED course: Patient accepted for transfer to [facility] at [facility]. Patient was also discussed with our bath solution maker here Dr. Kinney who states that the Transcription is out of order and patient likely requires repeat heart cath to assess for in-stent clot and other causes of acute cardiogenic shock. . 08/09 03:00 Order name: Basic Metabolic Panel; Complete Time: 04:18 sp4 08/09 03:00 Order name: CBC with Diff; Complete Time: 04:11 sp4 08/09 03:00 Order name: LFT's; Complete Time: 04:18 sp4 08/09 03:00 Order name: Magnesium; Complete Time: 04:18 sp4 08/09 03:00 Order name: NT PRO-BNP; Complete Time: 04:18 sp4 08/09 03:00 Order name: PT-INR; Complete Time: 04:11 sp4 08/09 03:00 Order name: Troponin HS; Complete Time: 04:18 sp4 08/09 03:02 Order name: Urinalysis W/Microscopic; Complete Time: 05:30 sp4 08/09 03:02 Order name: Urine Drug Screen; Complete Time: 05:30 sp4 08/09 04:10 Order name: Lactate w/ 2H reflex if indic.; Complete Time: 05:30 sp4 08/09 04:16 Order name: Blood Culture Adult (2) rg5 08/09 04:59 Order name: Ghost Lactate-NO COLLECT Timer; Complete Time: 08:00 EDMS 08/09 03:01 Order name: CT Head C Spine; Complete Time: 08:00 sp4 08/09 04:10 Order name: Chest Single View XRAY; Complete Time: 08:00 sp4 08/09 04:48 Order name: Angio Aorta For Dissection; Complete Time: 08:00 EDMS 08/09 03:00 Order name: EKG; Complete Time: 03:01 sp4 08/09 03:00 Order name: Cardiac monitoring; Complete Time: 03:36 sp4 08/09 03:00 Order name: EKG - Nurse/Tech; Complete Time: 03:34 sp4 08/09 03:00 Order name: IV Saline Lock; Complete Time: 03:14 sp4 08/09 03:00 Order name: Labs collected and sent; Complete Time: 03:34 sp4 08/09 03:00 Order name: O2 Per Protocol; Complete Time: 03:34 sp4 08/09 03:00 Order name: O2 Sat Monitoring; Complete Time: 03:34 sp4 08/09 03:46 Order name: Central Line Dressing Kit; Complete Time: 04:07 sp4 08/09 03:46 Order name: Central Line Kit; Complete Time: 04:07 sp4 08/09 03:46 Order name: Chlorhexidine prep; Complete Time: 04:07 sp4 08/09 03:46 Order name: Consent for central line completed; Complete Time: 04:07 sp4 08/09 03:46 Order name: Line Caps x3; Complete Time: 04:07 sp4 08/09 03:46 Order name: NS Flushes x3; Complete Time: 04:07 sp4 08/09 03:46 Order name: Sterile Gloves; Complete Time: 04:07 sp4 08/09 03:46 Order name: Sterile Probe Cover; Complete Time: 04:07 sp4 EC:18 Rate is 53 beats/min. Rhythm is regular, Junctional rhythm. QRS [place] is Normal. QRS sp4 interval is normal. QT interval is normal. No Q waves. T waves are Normal. No ST changes noted. Clinical impression: No evidence of ischemia. Interpreted by me. Reviewed by me. Administered Medications: 03:13 Drug: Ondansetron IVP 4 mg IVP once; over 2 minutes Route: IVP; Site: left forearm; bm8 05:36 Follow up: Response: No adverse reaction rg5 03:13 Drug: Ketorolac IVP 30 mg IVP once Route: IVP; Site: left forearm; bm8 03:30 Follow up: Response: No adverse reaction; Temperature is increased rg5 03:13 Drug: fentaNYL (PF) IVP 50 mcg IVP once Route: IVP; Site: left forearm; bm8 03:30 Follow up: Response: No adverse reaction; Pain is decreased rg5 03:14 Drug: Droperidol IVP 5 mg IVP once Route: IVP; Site: left forearm; bm8 03:35 Follow up: Response: No adverse reaction; Pain is decreased rg5 03:40 Drug: Atropine IVP 1 mg IVP once Route: IVP; Site: left forearm; ha1 04:57 Follow up: Response: No adverse reaction rg5 03:47 Drug: NS 0.9% IV 1000 ml IV at 1000 ml once; to be given as a bolus over 60 minutes rg5 Route: IV; Rate: 1000 ml; Site: left forearm; 04:30 Follow up: IV Status: Completed infusion; IV Intake: 1000ml rg5 03:53 Drug: Norepinephrine IV 0.1 mcg/kg/min IV at calculated rate See Administration ha1 Instructions; (Standard concentration 4 mg / 250 mL D5W); Recommended max rate 3 mcg/kg/min; Titrate 0.05 mcg/kg/min as often as every 5 minutes to achieve goal (see titration policy); Goal parameter MAP greater than 65 mmHg. Route: IV; Rate: 0.05 mcg/kg/min; Site: left forearm; 07:57 Follow up: Response: No adverse reaction; Blood pressure is elevated; IV Status: ph Infusion continued upon transfer 04:20 Drug: Calcium Gluconate IVPB 2 grams IVPB once over 60 mins; (mix in NS 100 mL) Route: rg5 IVPB; Infused Over: 60 mins; Site: right jugular; 05:20 Follow up: IV Status: Completed infusion; IV Intake: 100ml rg5 04:20 Drug: Calcium Chloride IVP 1 grams IVP once Route: IVP; Site: right jugular; rg5 05:22 Follow up: Response: No adverse reaction rg5 04:20 Drug: Magnesium Sulfate IVPB 2 grams IVPB once over 2 hrs Route: IVPB; Infused Over: 2 rg5 hrs; Site: left forearm; 05:00 Follow up: IV Status: Completed infusion; IV Intake: 100ml rg5 04:22 Drug: Albumin IVPB 25 grams 100 ml IVPB once; (Note: Albumin 25% concentration) Volume: rg5 100 ml; Route: IVPB; Site: right jugular; 05:34 Follow up: IV Intake: 100ml rg5 05:34 Follow up: IV Status: Completed infusion; IV Intake: 100ml rg5 04:22 Drug: Albumin IVPB 25 grams 100 ml IVPB once; (Note: Albumin 25% concentration) Volume: rg5 100 ml; Route: IVPB; Site: right jugular; 05:35 Follow up: IV Status: Completed infusion; IV Intake: 100ml rg5 05:35 Drug: Cefepime IVPB 2 grams IVPB at 200 ml/hr once over 30 mins; (mix in NS 100 mL) rg5 Route: IVPB; Rate: 200 ml/hr; Infused Over: 30 mins; Site: left forearm; 05:59 Follow up: IV Status: Completed infusion; IV Intake: 100ml rg5 05:59 Drug: vancoMYCIN IVPB 2 grams IVPB at calculated rate once Route: IVPB; Rate: rg5 calculated rate; Site: right jugular; 07:57 Follow up: Response: No adverse reaction; IV Status: Infusion continued upon transfer ph 06:16 Drug: Furosemide IVP 60 mg IVP once; give over 2 minutes Route: IVP; Site: right rg5 jugular; 06:33 Follow up: Response: No adverse reaction rg5 Disposition Summary: 08/09/24 06:22 Transfer Ordered Notes: Transfer Location: [facility] sp4 Reason: Higher level of care sp4 Condition: Stable sp4 Problem: new sp4 Symptoms: have improved sp4 Accepting Physician: [facility]'s attending hospitalist(08/09/24 07:58) ph Diagnosis - Cardiogenic shock, acute pulmonary edema, acute diastolic heart failure , NSTEMI, sp4 syncope and collapse - Acute pulmonary edema sp4 Forms: - Medication Reconciliation Form sp4 - SBAR form sp4 Critical care time excluding procedures: 05:30 Critical care time: Bedside Care: 36 minutes, Consultation: 12 minutes, Family sp4 Intervention: 12 minutes. Total time: 60 minutes Signatures: Dispatcher [employer] Lis Gómez RN RN ph Ayala, Heidy, RN RN ha1 Jim Jorgensen MD MD sp4 Julio C Saravia, RN RN bm8 Juan Tyler, RN RN rg5 Corrections: (The following items were deleted from the chart) 04:18 04:18 BLOOD CULTURE*+BA.LAB.BRZ ordered. EDMS EDMS 04:48 03:02 Chest Abdomen Pelvis W Con+CT.RAD.BRZ ordered. EDMS EDMS 06:22 06:22 [facility] attending hospitalist sp4 sp4 07:58 06:22 [facility] attending hospitalist sp4 ph
--- NOTE | 2024-08-09 06:23 | ER ---
Nurse's Notes [facility] Name: Kaitlyn Sesay Age: 64 yrs Sex: Female : 1960 Arrival Date: 08/09/2024 Time: 02:54 Bed 4 Private MD: Diagnosis: Cardiogenic shock, acute pulmonary edema, acute diastolic heart failure , NSTEMI, syncope and collapse;Acute pulmonary edema Presentation: 08/09 03:00 Chief complaint: EMS states: family found the patient lying down on the floor, pt rg5 complaints of back \T\ chest pain. 03:00 Care prior to arrival: Medication(s) given: ASA, 81 mg, x 4, Phenergan, 12.5 mg, zofran rg5 4 mg, Toradol 15mg IV IV initiated. 22 GA, in the left forearm. 03:00 Acuity: VIKRAM 3 rg5 03:00 Method Of Arrival: EMS: [facility] rg5 03:00 Onset of symptoms was August 09, 2024. rg5 03:00 Coronavirus screen: Client denies travel out of the [place] in the last 14 days. Ebola rg5 Screen: Patient negative for fever greater than or equal to 101.5 degrees Fahrenheit, and additional compatible Ebola Virus Disease symptoms. Initial Sepsis Screen: Does the patient meet any 2 criteria? No. Patient's initial sepsis screen is negative. Initial Sepsis Screen: Does the patient have a suspected source of infection? No. Patient's initial sepsis screen is negative. Risk Assessment: Do you want to hurt yourself or someone else? Patient reports no desire to harm self or others. 03:00 Mechanism of Injury: Fall out of chair. Trauma event details: Injury occurred in the [address] Historical: - Allergies: 03:00 Azithromycin; rg5 03:00 Bees; rg5 03:00 Cephalexin; rg5 03:00 Codeine; rg5 03:00 Keflex; rg5 03:00 Oxycodone; rg5 03:00 PENICILLINS; rg5 03:00 Rocephin; rg5 03:00 steroids; rg5 03:00 Rofecoxib; rg5 03:00 Sulfa (Sulfonamide Antibiotics); rg5 - PMHx: 03:00 Atrial fibrillation; Chronic pain; cirrhosis of liver; esophageal varicies; fentanyl rg5 pump; GI Bleed; Hypercholesterolemia; Hypertensive disorder; liver failure; Thyroid problem; - PSHx: 03:00 L5 \T\ S1; rg5 - Immunization history: Last tetanus immunization:. - Infectious Disease History:: Denies. - Social history:: Smoking status: Patient denies any tobacco usage or history of. - Family history:: not pertinent. Screenin:00 [facility] ED Fall Risk Assessment (Adult) History of falling in the last 3 months, rg5 including since admission No falls in past 3 months (0 pts) Confusion or Disorientation No (0 pts) Intoxicated or Sedated No (0 pts) Impaired Gait Yes (1 pt) Mobility Assist Device Used Yes (1 pt) Altered Elimination No (0 pt) Score/Fall Risk Level 0 - 2 = Low Risk. Abuse screen: Denies threats or abuse. Nutritional screening: No deficits noted. Tuberculosis screening: No symptoms or risk factors identified. Primary Survey: 03:00 NO uncontrolled hemorrhage observed. A: The client is awake and alert. The airway is rg5 patent. Breathing/Chest: Spontaneous respiratory effort, equal unlabored respirations, breath sounds clear bilaterally, regular pattern, symmetrical chest rise and fall. Circulation: No external hemorrhage present. Regular and strong central pulse, skin warm/dry/normal color. Disability Pupils are equal, round, reactive to light and accommodation. Client is alert. Exposure/Environment: All clothing and personal items were removed. Forensic evidence collection is not deemed to be indicated at this time. Items placed in patient belonging bag. There is no evidence of uncontrolled external bleeding. No obvious injuries are noted at this time. A warming method has been applied: A warm blanket has been provided to the patient. 07:58 Reassessment Alertness and Airway: Awake and alert. The airway is patent. Breathing: ph Spontaneous respiratory effort, equal unlabored respirations, breath sounds clear bilaterally, regular pattern with symmetrical chest rise and fall. Circulation: No external hemorrhage noted. Regular and strong central pulse, skin warm/dry/normal color. Disability: Pupils Pupils are equal, round, reactive to light and accomodation. Assessment: 03:00 General: Appears uncomfortable, Behavior is calm, cooperative, appropriate for age. rg5 Pain: Complains of pain in back and chest Pain currently is 10 out of 10 on a pain scale. Quality of pain is described as aching, Pain began 1 hour ago. Neuro: Level of Consciousness is awake, alert, obeys commands, Oriented to person, place, time, situation. EENT: No deficits noted. Cardiovascular: Reports chest pain. Respiratory: Airway is patent Trachea midline Respiratory effort is even, unlabored, Respiratory pattern is regular, symmetrical. GI: Abdomen is round non-distended. : No signs and/or symptoms were reported regarding the genitourinary system. Derm: Skin is intact, Skin is dry, Skin is normal, Skin temperature is warm. Musculoskeletal: Circulation, motion, and sensation intact. Range of motion: intact in all extremities. 03:30 Reassessment: Patient and/or family updated on plan of care and expected duration. Pain rg5 level reassessed. Patient states symptoms have not improved. 03:35 Cardiovascular: Rhythm is regular. rg5 03:35 Pain: Complains of pain in abdomen Pain currently is 7 out of 10 on a pain scale. rg5 Quality of pain is described as dull. Neuro: Level of Consciousness is obeys commands. 04:30 Reassessment: Patient and/or family updated on plan of care and expected duration. Pain rg5 level reassessed. Patient states symptoms have improved. 05:31 Reassessment: Patient and/or family updated on plan of care and expected duration. Pain rg5 level reassessed. Patient states symptoms have improved. 06:04 General: Appears in no apparent distress. Behavior is calm, quiet. Pain: Denies pain. rg5 Cardiovascular: Rhythm is sinus bradycardia. Respiratory: Airway is patent Trachea midline Respiratory effort is even, unlabored, Respiratory pattern is regular, symmetrical. 07:54 Reassessment: Patient appears in no apparent distress at this time. No changes from ph previously documented assessment. Report called to [facility], EMS at bedside for transport. Vital Signs: 03:00 BP 133 / 79; Pulse 88; Resp 19; Temp 97.8(O); Pulse Ox 99% ; Weight 81.65 kg; Height 5 rg5 ft. 6 in. ; Pain 9/10; 03:15 BP 61 / 49; Pulse 65; Resp 18; Pulse Ox 96% on R/A; rg5 03:32 BP 58 / 46; Pulse 68; Pulse Ox 94% on R/A; rg5 03:48 BP 80 / 66; Pulse 46; Resp 19; Pulse Ox 100% on 3 lpm NC; rg5 04:00 BP 110 / 46; Pulse 61; Resp 18; Pulse Ox 98% on 3 lpm NC; rg5 04:05 BP 99 / 63; Pulse 60; Resp 18; Pulse Ox 100% on 3 lpm NC; rg5 04:15 BP 127 / 61; Pulse 62; Resp 18; Pulse Ox 100% on 3 lpm NC; rg5 04:25 BP 123 / 61; Pulse 57; Resp 18; Temp 94; Pulse Ox 100% on 3 lpm NC; Pain 0/10; rg5 04:45 BP 143 / 58; Pulse 53; Resp 17; Pulse Ox 100% on 3 lpm NC; rg5 05:00 BP 113 / 54; Pulse 50; Resp 18; Pulse Ox 100% on 3 lpm NC; rg5 05:45 BP 122 / 55; Pulse 47; Resp 18; Temp 97.6(Ca); Pulse Ox 98% on 3 lpm NC; Pain 0/10; rg5 07:00 BP 107 / 51; Pulse 53; Resp 18; Pulse Ox 100% on 2 lpm NC; ph 07:15 BP 123 / 57; Pulse 55; Resp 18; Pulse Ox 100% on 2 lpm NC; ph 07:30 BP 117 / 56; Pulse 55; Resp 16; Temp 97.8; Pulse Ox 99% on 2 lpm NC; ph 07:45 BP 115 / 58; Pulse 54; Resp 16; Pulse Ox 100% on 2 lpm NC; ph 03:00 Body Mass Index 29.05 (81.65 kg, 167.64 cm) rg5 03:00 Pain Scale: Adult rg5 04:25 Pain Scale: Adult rg5 05:45 Pain Scale: Adult rg5 Juan Coma Score: 03:00 Eye Response: spontaneous(4). Motor Response: obeys commands(6). Verbal Response: rg5 oriented(5). Total: 15. 05:15 Eye Response: spontaneous(4). Motor Response: obeys commands(6). Verbal Response: sp4 oriented(5). Total: 15. Trauma Score (Adult): 03:00 Eye Response: spontaneous(1); Verbal Response: oriented(1); Motor Response: obeys rg5 commands(2); Systolic BP: > 89 mm Hg(4); Respiratory Rate: 10 to 29 per min(4); Mason Score: 15; Trauma Score: 12 ED Course: 02:56 Patient arrived in ED. jj6 02:59 Jim Jorgensen MD is Attending Physician. sp4 03:00 Arm band placed on. EKG completed in triage. Results shown to MD. rg5 03:00 Patient has correct armband on for positive identification. Bed in low position. Call rg5 light in reach. Side rails up X2. Adult w/ patient. Client placed on continuous cardiac and pulse oximetry monitoring. NIBP monitoring applied. ekg monitor tech on. Pulse ox on. NIBP on. Door closed. Noise minimized. Warm blanket given. 03:00 No provider procedures requiring assistance completed. Maintain EMS IV. Dressing rg5 intact. Good blood return noted. Site clean \T\ dry. Gauge \T\ site: 22g left AC. Flushed with 10 mL NS. 03:00 Patient maintains SpO2 saturation greater than 95% on room air. rg5 03:02 Juan Tyler, RN is Primary Nurse. rg5 03:07 Triage completed. rg5 04:10 Assisted provider with central line placement. Set up central line tray. Triple lumen rg5 line placed in right internal jugular. Line placed by Jim Jorgensen MD Placement verified by CXR, blood return, Dressed with Tegaderm, Blood was collected. Patient tolerated well. Before procedure, did Practitioner(s) obtain informed consent? Yes. Time-out/Briefing performed prior to start of procedure? Yes. Was handwashing/sanitizing done immediately prior to procedure? Yes. Was patient positioned to in a way to prevent air embolism? Yes. Was procedure site sterilized? Yes, with chlorhexidine. Was the site allowed to dry? During the procedure, did the Practitioner(s) maintain a sterile field? Yes. Was blood aspirated from each lumen? Yes. After the procedure, did the Practitioner(s) clean the site and apply a sterile dressing? Yes. 04:18 Chest Single View XRAY In Process Unspecified. EDMS 04:25 Ramirez cath inserted, using sterile technique, 16 Fr., by ED staff, balloon inflated, to rg5 gravity drainage, urine specimen collected. Patient tolerated well. 04:[address] via stretcher. rg5 04:43 Patient moved back from CT. rg5 04:48 CT Head C Spine In Process Unspecified. EDMS 04:48 Angio Aorta For Dissection In Process Unspecified. EDMS 06:06 initiated transfer with [facility]. kmf 06:58 EMS called for transportation. ty 07:56 Thermoregulation: warm blanket given to patient. ph 07:57 Patient transferred, IV remains in place. ph Administered Medications: 03:13 Drug: Ondansetron IVP 4 mg IVP once; over 2 minutes Route: IVP; Site: left forearm; bm8 05:36 Follow up: Response: No adverse reaction rg5 03:13 Drug: Ketorolac IVP 30 mg IVP once Route: IVP; Site: left forearm; bm8 03:30 Follow up: Response: No adverse reaction; Temperature is increased rg5 03:13 Drug: fentaNYL (PF) IVP 50 mcg IVP once Route: IVP; Site: left forearm; bm8 03:30 Follow up: Response: No adverse reaction; Pain is decreased rg5 03:14 Drug: Droperidol IVP 5 mg IVP once Route: IVP; Site: left forearm; bm8 03:35 Follow up: Response: No adverse reaction; Pain is decreased rg5 03:40 Drug: Atropine IVP 1 mg IVP once Route: IVP; Site: left forearm; ha1 04:57 Follow up: Response: No adverse reaction rg5 03:47 Drug: NS 0.9% IV 1000 ml IV at 1000 ml once; to be given as a bolus over 60 minutes rg5 Route: IV; Rate: 1000 ml; Site: left forearm; 04:30 Follow up: IV Status: Completed infusion; IV Intake: 1000ml rg5 03:53 Drug: Norepinephrine IV 0.1 mcg/kg/min IV at calculated rate See Administration ha1 Instructions; (Standard concentration 4 mg / 250 mL D5W); Recommended max rate 3 mcg/kg/min; Titrate 0.05 mcg/kg/min as often as every 5 minutes to achieve goal (see titration policy); Goal parameter MAP greater than 65 mmHg. Route: IV; Rate: 0.05 mcg/kg/min; Site: left forearm; 07:57 Follow up: Response: No adverse reaction; Blood pressure is elevated; IV Status: ph Infusion continued upon transfer 04:20 Drug: Calcium Gluconate IVPB 2 grams IVPB once over 60 mins; (mix in NS 100 mL) Route: rg5 IVPB; Infused Over: 60 mins; Site: right jugular; 05:20 Follow up: IV Status: Completed infusion; IV Intake: 100ml rg5 04:20 Drug: Calcium Chloride IVP 1 grams IVP once Route: IVP; Site: right jugular; rg5 05:22 Follow up: Response: No adverse reaction rg5 04:20 Drug: Magnesium Sulfate IVPB 2 grams IVPB once over 2 hrs Route: IVPB; Infused Over: 2 rg5 hrs; Site: left forearm; 05:00 Follow up: IV Status: Completed infusion; IV Intake: 100ml rg5 04:22 Drug: Albumin IVPB 25 grams 100 ml IVPB once; (Note: Albumin 25% concentration) Volume: rg5 100 ml; Route: IVPB; Site: right jugular; 05:34 Follow up: IV Intake: 100ml rg5 05:34 Follow up: IV Status: Completed infusion; IV Intake: 100ml rg5 04:22 Drug: Albumin IVPB 25 grams 100 ml IVPB once; (Note: Albumin 25% concentration) Volume: rg5 100 ml; Route: IVPB; Site: right jugular; 05:35 Follow up: IV Status: Completed infusion; IV Intake: 100ml rg5 05:35 Drug: Cefepime IVPB 2 grams IVPB at 200 ml/hr once over 30 mins; (mix in NS 100 mL) rg5 Route: IVPB; Rate: 200 ml/hr; Infused Over: 30 mins; Site: left forearm; 05:59 Follow up: IV Status: Completed infusion; IV Intake: 100ml rg5 05:59 Drug: vancoMYCIN IVPB 2 grams IVPB at calculated rate once Route: IVPB; Rate: rg5 calculated rate; Site: right jugular; 07:57 Follow up: Response: No adverse reaction; IV Status: Infusion continued upon transfer ph 06:16 Drug: Furosemide IVP 60 mg IVP once; give over 2 minutes Route: IVP; Site: right rg5 jugular; 06:33 Follow up: Response: No adverse reaction rg5 Medication: 03:00 VIS not applicable for this client. rg5 Intake: 03:00 PO: 0ml; Total: 0ml. rg5 04:30 IV: 1000ml; Total: 1000ml. rg5 05:00 IV: 100ml; Total: 1100ml. rg5 05:20 IV: 100ml; Total: 1200ml. rg5 05:34 IV: 100ml; Total: 1300ml. rg5 05:34 IV: 100ml; Total: 1400ml. rg5 05:35 IV: 100ml; Total: 1500ml. rg5 05:59 IV: 100ml; Total: 1600ml. rg5 Output: 04:25 Urine: 150ml (Ramirez); Total: 150ml. rg5 05:30 Urine: 50ml (Ramirez); Total: 200ml. rg5 06:17 Urine: 50ml (Ramirez); Total: 250ml. rg5 Outcome: 06:22 ER care complete, transfer ordered by . sp4 07:57 Transferred by [facility]. to [facility], [facility] [place], Transfer ph form completed. X-rays sent w/ patient. 07:57 Condition: stable 07:57 Instructed on the need for transfer, 07:58 Patient left the ED. ph Signatures: Dispatcher [employer] Lis Gómez, RN RN ph Marielena MillerConcetta Schulz RN RN ha1 Jim Jorgensen MD MD sp4 Forrester, Kelsey Maroul Bryon Nicholson Brad, RN RN bm8 Juan Tyler, RN RN rg5 Corrections: (The following items were deleted from the chart) 03:12 03:00 Care prior to arrival: Medication(s) given: Phenergan, 12.5 mg, zofran 4 mg, rg5 Toradol 15mg IV IV initiated. 22 GA, in the left forearm, rg5 04:05 03:53 Norepinephrine IV 8.165 mcg/min IV at 5 mcg/min in left forearm ha1 ha1 05:33 05:15 IV Status: Completed infusion; IV Intake: 50ml rg5 rg5
[2024-08-09 08:20] VITALS: TEMP 97.8
[2024-08-09 08:21] VITALS: BP 115/58; O2SAT 100
== END 2024-08-09 07:58 | disposition short-term general hospital (02) ==
LOC: ER 02:54
DX: I21.4 Non-ST elevation (NSTEMI) myocardial infarction (principal); R57.0 Cardiogenic shock; I50.31 Acute diastolic (congestive) heart failure; J81.0 Acute pulmonary edema; I10 Essential (primary) hypertension; W18.11XA Fall from or off toilet without subsequent striking against object, initial encounter; Y92.002 Bathroom of unspecified non-institutional (private) residence as the place of occurrence of the external cause
CPT/HCPCS: 87040 ×2; 85025; 81001; 80048; 36415; 83735; 85610; 80076; 83605; 84484; 83880; 80307; 70450; 72125; 71275; 74175; 71045; 51702; 99291; 99292; 36556; Q9967; J3475; J0612; J1940 ×2; J0461; J3010; J3370; J0692; J2405; J1790; P9047; J7040; J7030; 93005